=== PATIENT | female | born 1940 | race Caucasian/White ===

== ENCOUNTER 2016-05-06 21:27 | Emergency (ER) | payer OTHER ==
[2016-05-06 21:41] VITALS: BP 132/72; TEMP 101; BMI 35.5
[2016-05-06] MEDS ORDERED: LIDOCAINE 1 % AMP 5 ML (SUTURES) IM STA (21:41)
[2016-05-06] MEDS ORDERED: DECADRON 4 MG/ML SDV IM STA (21:41)
[2016-05-06] MEDS ORDERED: ROCEPHIN IM STA (21:41)
[2016-05-06] MEDS ORDERED: DUONEB NEB STA (21:42)
[2016-05-06 22:10] LABS: BASOPHILS % (AUTO) 0.3 % (0.0-3.0); EOSINOPHILS % (AUTO) 0.1 % (0.0-7.0); HEMATOCRIT 41.1 % (37.0-47.0); IMMATURE GRANULOCYTE % (AUTO) 0.6 % (0.0-5.0); LYMPHOCYTES # (AUTO) 1.3 K/uL (0.60-3.4); LYMPHOCYTES % (AUTO) 9.6 (10.0-50.0); MEAN CORPUSCULAR HEMOGLOBIN 28.1 pg (27.0-31.0); MEAN CORPUSCULAR HGB CONC 31.6 (31.8-35.4); MONOCYTES % (AUTO) 7.1 (0-10); NEUTROPHILS # (AUTO) 11.4 K/ul (2.0-6.9); NEUTROPHILS % (AUTO) 82.3; PLATELET COUNT 239 10^3/uL (140-440); RED BLOOD COUNT 4.62 10^6/ul (4.20-5.40); WHITE BLOOD COUNT 13.91 K/ul (4.6-10.2)
--- NOTE | 2016-05-06 22:12 | CT ---
EXAM: CT of the paranasal sinuses without contrast. HISTORY: Cough. Sinus pressure. Fever. PROCEDURE: Contiguous axial CT images of the paranasal sinuses without contrast with coronal and sa gittal reformats. FINDINGS: The frontal sinuses are well-aerated and normal in appearance. There is minimal mucosal thickening in the ethmoid air cells. There is minimal mucosal thickening in the right maxillary sin us. There is mucosal thickening obstructing the infundibulum of the right ostiomeatal complex. The re is moderate mucosal thickening in the left maxillary sinus. There is mucosal thickening obstruct ing the left ostiomeatal complex. There is minimal mucosal thickening in the sphenoid sinus. The n billy turbinates are normal in appearance. There is mild bowing of the nasal septum to the right. Impression: Paranasal sinusitis as described.
[2016-05-06 22:16] LABS: ABG BASE EXCESS 1 (-2.0-2.0); ABG PCO2 32.7 mmHg (35-45); ABG PH 7.478 (7.35-7.45)
[2016-05-06 22:17] LABS: ABG HCO3 24.2 (22.0-26.0); ABG TCO2 25 (22.0-28.0)
[2016-05-06 22:22] LABS: FLU INTERNAL QC INTERNAL QC VALID; RAPID FLU A NEGATIVE (NEGATIVE); RAPID FLU B NEGATIVE (NEGATIVE)
--- NOTE | 2016-05-06 22:22 | CT ---
EXAM: CT scan thorax without contrast HISTORY: Cough fever COMPARISON: None. FINDINGS: Contiguous axial images obtained through the thorax without contrast utilizing 5-mm colli mation. Sagittal and coronal reconstructions were imaged and reviewed.. The thoracic inlet is unre markable. The heart silhouette is mildly enlarged with coronary artery calcification. There is no pericardial effusion. The ascending aorta is ectatic measuring 3.7 cm. The descending thoracic aor ta the same level measures 2.8 cm. Calcified lymph nodes are seen within the prevascular right serge r region.. There is a 8 mm ground-glass opacity posteriorly within the right upper lobe.. There is an adjacent1. 6 cm opacity medially within the right upper lobe. There is an 11 mm ill-defined opac ity posteromedially at the right lung base.. Minimal fibrotic scarring noted at the left lung base. There is a hiatal hernia.4 there are degenerative changes noted throughout the thoracic spine. IMPRESSION: Ectatic ascending aorta. Mild cardiomegaly with coronary artery calcification. Hiatal hernia. Subcentimeter ground-glass nodule posteriorly right upper lobe.. There is an adjacent 1.6 noted opa city posteriorly within the right upper lobe.. Pneumopleural opacity right lung base which merits follow-up. Fibrotic scarring left lung base.
[2016-05-06 22:29] LABS: ALBUMIN 3.5 g/dL (3.4-5.0); ALBUMIN/GLOBULIN RATIO 0.88; ANION GAP 15.3; BILIRUBIN,TOTAL 0.41 mg/dL (0.00-1.20); BUN/CREATININE RATIO 18.1; CALCIUM 9.1 mg/dL (8.2-10.2); CREATININE 1.16 mg/dL (0.60-1.30); POTASSIUM 3.3 mmol/L (3.5-5.10); TOTAL PROTEIN 7.5 g/dL (5.8-8.1)
--- NOTE | 2016-05-06 23:38 | ED.PDOC ---
General ED Provider: Dr. CARLENE BEDOLLA-ER Chief Complaint: Non-specific Complaint Stated Complaint: my sinuses hurt and they are clogged up Time Seen by Physician: 21:35 Mode of Arrival: Wheelchair Information Source: Patient, Family Exam Limitations: No limitations Primary Care Provider: FRENCH CASTELLANO Nursing and Triage Documentation Reviewed and Agree: Yes Respiratory Complaint Exam - Respiratory Complaint/Exam Onset/Duration: 24hrs Symptoms Are: Still present Timing: Constant Initial Severity: Mild Current Severity: Mild Location: Nose Character: Reports: Non-productive cough Aggravating: Reports: URI Alleviating: Reports: None Associated Signs and Symptoms: Reports: Fever, URI, Nasal congestion, Sinus discomfort, Sore throat. Denies: Rapid breathing, Dyspnea, Chills, Chest pain, Pleuritic chest pain, Wheezing, Hemoptysis, Dizziness, Calf pain, Calf swelling , Edema, Hoarseness, Vomiting, Weight loss, Decreased oral intake, Increased thirst, Increased appetite, Increased urination History of Healthcare-Acquired Pneumonia: No Cardiac Risk Factors: Reports: Diabetes, Hypertension Pseudomonas Risk Factors: Reports: None Status Asthmaticus Risk Factors: Reports: None Home Oxygen Use: No Recent Stress Test: No Recent Echo/LV Function: No Current Antibiotic Use: No Current Asthma Medication Use: No Respiratory Distress: None Inadequate Respiratory Effort: No Dysphagia Present: No Stridor Present: No JVD Present: No Accessory Muscle Use: No Retractions: Not Present Diminished Breath Sounds: No Sinus Tenderness: None Grunting Respirations: No Kussmaul Respirations: No Differential Diagnoses: Pneumonia, Bronchitis, Sinusitis, URI Review of Systems - Review Of Systems Constitutional: Reports: Fever Eyes: Reports: No symptoms Ears, Nose, Mouth, Throat: Reports: Nose discharge Respiratory: Reports: Cough Cardiac: Reports: No symptoms GI: Reports: No symptoms : Reports: No symptoms Musculoskeletal: Reports: No symptoms Skin: Reports: No symptoms Neurological: Reports: No symptoms Endocrine: Reports: No symptoms Hematologic/Lymphatic: Reports: No symptoms All Other Systems: Reviewed and Negative Past Medical History - Past Medical History Endocrine: Reports: DM 2, Dyslipidemia Cardiovascular: Reports: CAD, CA, Hypertension, A-Fib Respiratory: Reports: Asthma Hematological: Reports: None Gastrointestinal: Reports: GERD Genitourinary: Reports: None Neuro/Psych: Reports: CVA Musculoskeletal: Reports: None Cancer: Reports: None Last Menstrual Period: 44 years ago - Surgical History General Surgical History: Reports: Hysterectomy, Back Surgery (SPINAL FUSION) - Family History Family History: Reports: Unknown - Social History Smoking Status: Former smoker Hx Substance Use: No Alcohol Screening: None Lives: With family - Immunizations Tetanus Shot up to Date: No (unsure) Physical Exam - Physical Exam Appearance: Well-appearing, No pain distress, Well-nourished Eyes: ANTONINO, EOMI, Conjunctiva clear ENT: Rhinorrhea Neck: Supple Respiratory: Airway patent, Breath sounds clear, Breath sounds equal, Respirations nonlabored Cardiovascular: RRR, Pulses normal, No rub, No murmur GI/: Soft, Nontender, No masses, Bowel sounds normal, No Organomegaly Musculoskeletal: Normal strength, ROM intact, No edema, No calf tenderness Skin: Warm, Dry, Normal color Neurological: Sensation intact Psychiatric: Affect appropriate, Mood appropriate Interpretation - Radiology Interpretation Radiology Interpretation By: Radiologist Radiology Results: Positive Exam Interpreted: CT Scan Re-Evaluation - Re-Evaluation Time of Re-Evaluation: 23:39 Status: Improved Vital Signs Stable: Yes Pain Level: 0 Appearance: NAD Lungs: Clear Skin: Warm and Dry Neuro: Alert and Oriented X3 CV: RRR Critical Care Note - Critical Care Note Total Time (mins): 0 Course - Course Hematology/Chemistry: 05/06/16 22:00 05/06/16 22:00 Orders, Labs, Meds: Lab Review 05/06/16 05/06/16 21:41 22:00 WBC 13.91 H RBC 4.62 Hgb 13.0 Hct 41.1 MCV 89.0 MCH 28.1 MCHC 31.6 L RDW Coeff of Monique 13.4 Plt Count 239 Immature Gran % (Auto) 0.6 Neut % (Auto) 82.3 Lymph % (Auto) 9.6 L [place] % (Auto) 7.1 Eos % (Auto) 0.1 Baso % (Auto) 0.3 Immature Gran # (Auto) 0.1 Neut # 11.4 H Lymph # 1.3 [place] # 1.0 Eos # 0.0 Baso # 0.0 D-Dimer 0.60 Puncture Site Rr O2 Saturation 94.0 L ABG pH 7.478 H ABG pCO2 32.7 L ABG pO2 64.0 L ABG HCO3 24.2 ABG Total CO2 25 ABG Base Excess 1 Adam Test + FiO2 % 21.0 Sodium 134 L Potassium 3.3 L Chloride 96 L Carbon Dioxide 26 Anion Gap 15.3 BUN 21 H Creatinine 1.16 Estimated GFR (MDRD) 46.00 BUN/Creatinine Ratio 18.10 Glucose 268 H Calcium 9.1 Total Bilirubin 0.41 AST 14 L ALT 22 Alkaline Phosphatase 61 B-Natriuretic Peptide 163 H Total Protein 7.5 Albumin 3.5 Globulin 4.0 Albumin/Globulin Ratio 0.88 Influenza A (Rapid) Negative Influenza B (Rapid) Negative Orders Category Date Time Status ABG DRAW REQUEST Stat CARDIO 05/06/16 21:41 Completed NEBULIZER TREATMENT Stat CARDIO 05/06/16 21:43 Completed ABG Stat LAB 05/06/16 21:41 Completed BLOOD CULTURE Stat LAB 05/06/16 22:00 Received BNP [B-TYPE NATRIURETIC PEPTIDE] Stat LAB 05/06/16 22:00 Completed CBC W/ AUTO DIFF Stat LAB 05/06/16 22:00 Completed COMPREHENSIVE METABOLIC PANEL Stat LAB 05/06/16 22:00 Completed D-DIMER Stat LAB 05/06/16 22:00 Completed MOLECULAR GROUP A STREP Stat LAB 05/06/16 22:00 Results RAPID FLU A/B Stat LAB 05/06/16 22:00 Completed STREP SCREEN Stat LAB 05/06/16 22:00 Results Ceftriaxone Sodium [Rocephin] MEDS 05/06/16 21:41 Discontinued 1 gm IM ONCE STA Dexamethasone 4 mg/ml Inj [Decadron 4 mg/ml Sdv] MEDS 05/06/16 21:41 Discontinued 4 mg IM ONCE STA Ipratropium/Albuterol Neb [Duoneb] MEDS 05/06/16 21:42 Discontinued 1 vial NEB ONCE STA Lidocaine HCl/Pf [Lidocaine 1 % Amp 5 ml (Sutures)] MEDS 05/06/16 21:41 Discontinued 2.1 ml IM ONCE STA CT CHEST W/O CONTRAST Stat RADS 05/06/16 21:[address] SINUSES W/O CONTRAST Stat RADS 05/06/16 21:42 Completed Medications Discontinued Medications Generic Name Dose Route Start Last Admin Trade Name Freq PRN Reason Stop Dose Admin Albuterol/Ipratropium 1 vial 05/06/16 21:42 05/06/16 22:10 Duoneb NEB 05/06/16 21:43 1 vial ONCE STA Administration Ceftriaxone Sodium 1 gm 05/06/16 21:41 05/06/16 22:01 Rocephin IM 05/06/16 21:42 1 gm ONCE STA Administration Dexamethasone Sodium Phosphate 4 mg 05/06/16 21:41 05/06/16 22:02 Decadron 4 Mg/Ml Sdv IM 05/06/16 21:42 4 mg ONCE STA Administration Lidocaine HCl 2.1 ml 05/06/16 21:41 05/06/16 22:02 Lidocaine 1 % Amp 5 Ml (Sutures) IM 05/06/16 21:42 2.1 ml ONCE STA Administration Vital Signs: Temp Pulse Resp BP Pulse Ox 05/06/16 21:31 101 F H 82 20 132/72 91 L Departure - Departure Time of Disposition: 23:39 Disposition: HOME SELF-CARE Discharge Problem: Lung nodule Sinusitis Qualifiers: Sinusitis location: unspecified location Chronicity: acute Recurrence: non- recurrent Qualifier Code: (J01.90) Acute sinusitis, unspecified Instructions: Sinusitis (ED) Condition: Good Pt referred to PMD for follow-up: Yes Additional Instructions: augmentin 875mg bid x 10 days--flonase nasal spray one puff each nostril bid--f/ u with pcp---f/u with dr castellano regarding lung nodule Allergies/Adverse Reactions: Allergies No Known Allergies Allergy (Verified 05/06/16 21:36) Home Medications: Ambulatory Orders Albuterol Sulfate [Ventolin Hfa] 90 mcg INH Q6H PRN 03/04/13 Amlodipine Besylate [Norvasc] 10 mg PO DAILY 03/04/13 Aspirin [Aspirin EC] 81 mg PO DAILY 03/04/13 Ca Cmb No.1/Vit D3/B-6/FA/B12 [Vitamin D3 1,000 Unit Tablet] 1 each PO DAILY Dabigatran Etexilate Mesylate [Pradaxa] 150 mg PO BID 03/04/13 Fenofibrate 54 mg PO DAILY 03/04/13 Furosemide [Lasix Tab] 40 mg PO QDAC 03/04/13 Glimepiride [Amaryl] 4 mg PO DAILYWM 03/04/13 Lovastatin 40 mg PO QPM 03/04/13 Metformin HCl 1,000 mg PO BIDWM 03/04/13 Nitroglycerin [Nitrostat] 0.4 mg SL Q5MIN X 3 DOSES PRN 03/04/13 Ranitidine HCl 300 mg PO QDAC 03/04/13 Cholecalciferol (Vitamin D3) [D3-2000] 2,000 units PO DAILY 06/29/15 Digoxin [Digox] 125 mcg PO DAILY 06/29/15 Gabapentin [Neurontin] 300 mg PO Q8HR 06/29/15 Multivitamin W-Minerals/Lutein [Vision Plus Lutein Vitamin Tab] 1 each PO DAILY 06/29/15 Hydrocodone Bit/Acetaminophen [[place] 5-325] 1 each PO TID PRN #20 tablet Canagliflozin [Invokana] 100 mg PO DAILY 05/06/16 Diazepam [Valium] 5 mg PO BID PRN 05/06/16 Donepezil HCl [Aricept] 10 mg PO DAILY 05/06/16 Insulin Glargine,Hum.rec.anlog [Eleanor Ogden] 40 unit SQ QPM 05/06/16 Metoprolol Tartrate [Lopressor] 25 mg PO BID 05/06/16 Disposition Discussed With: Patient
== END 2016-05-06 23:45 | disposition home or self-care (01) ==
LOC: ED 21:27
DX: J01.90 Acute sinusitis, unspecified (principal); R91.1 Solitary pulmonary nodule; E11.9 Type 2 diabetes mellitus without complications; I10 Essential (primary) hypertension; R05 Cough; I25.10 Atherosclerotic heart disease of native coronary artery without angina pectoris; E78.5 Hyperlipidemia, unspecified; I25.2 Old myocardial infarction; Z79.899 Other long term (current) drug therapy; Z86.73 Personal history of transient ischemic attack (TIA), and cerebral infarction without residual deficits
CPT/HCPCS: 36415; 80053; 82803; 83880; 85025; 85379; 87040; 87651; 87804; 87880; 94640; 96372; 99283

== ENCOUNTER 2016-12-02 06:48 | Outpatient (CLI) ==
--- NOTE | 2016-12-03 12:44 | ECHO2D ---
Date of Exam: 12/02/16 Ordering Physician: FRENCH JACOBSON Reason for Echo: SURGICAL CLEARANCE, COPD, HTN, DM M-Mode Normal Adult Results LV Dimensions Normal Adult Results AoV Opening excursions >1.6 >1.6 LVEDD-base- 3.5-5.8 5.9 Ao root dimensions 2.0-3.7 3.3 LVESD-base- 3.1-4.6 L. Atrium dimensions 1.9-3.8 5.0 Post. Wall thickness 0.8-1.1 1.2 IV septum (thickness) 0.7-1.2 1.2 Post. Wall excursion 0.72-1.3 NORMAL Septal motion 0.3 Systolic motion R. Ventricular cavity 1.5-2.0 3.0 LVEF 60% 46% Paradoxical septal wall motion NORMAL 2-D : ENLARGED LEFT ATRIAL AND RIGHT VENTRICLE CAVITIES--HYPOKINETIC SEPTAL WALL , NORMAL VALVES, NO EFFUSION, NO THROMBUS M-MODE: MV: NORMAL AV: NORMAL TV: NORMAL PV: CHAMBER SIZE: ENLARGED LEFT ATRIAL AND RIGHT VENTRICLE CAVITIES WALL MOTION: HYPOKINETIC SEPTUM PERICARDIUM: NORMAL INTERPRETATION: 1. BORDERLINE LEFT VENTRICULAR HYPERTROPHY WITH ENLARGED LEFT ATRIAL CAVITY 2. ENLARGED RIGHT VENTRICULAR CAVITY 3. HYPOKINETIC SEPTUM WITH LVEF 46% 4. NORMAL VALVES MTDD
== END 2016-12-02 06:49 | disposition home or self-care (01) ==
LOC: CAR 06:48
PROVIDERS: ATTEND Internal Medicine
DX: Z01.810 Encounter for preprocedural cardiovascular examination (principal); I10 Essential (primary) hypertension; J44.9 Chronic obstructive pulmonary disease, unspecified; E11.9 Type 2 diabetes mellitus without complications
CPT/HCPCS: 93005; 93010

== ENCOUNTER 2016-12-03 06:50 | Outpatient (CLI) ==
[2016-12-03] MEDS ORDERED: DOBUTAMINE 250 ML IV ONE (07:08)
[2016-12-03] MEDS ORDERED: ATROPINE SULFATE PFS ONE (07:08)
--- NOTE | 2016-12-03 13:40 | DOBSTECHO ---
Ordering Physician: FRENCH JACOBSON Date of Test: 12/03/16 Reason for Examination: SURG CLEARANCE, COPD, HTN, DM Current Medications: LOVASTATIN, FUROSEMIDE, METFORMIN, GABAPENTIN, FENOFIBRATE , RANITIDINE, DIGOXIN, AMLODIPINE, BENAZEPRIL, PRADAXA, DONEPEZIL Height: 66" Weight: 225 LBS Target Heart Rate: 124/146 ST Segment Stage Time HR BPM BP mmhg Rhythm +/- Up Down Comments/Symptoms Control Sitting 62 124/86 A FIB NONE Dobutamine 250mg/D5W 5cmg/KG/mn 10cmg/KG/mn 3" 85 138/70 A FIB NONE 15cmg/KG/mn 2" 100 A FIB NONE 20cmg/KG/mn :36 146 160/70 A FIB NONE 25cmg/KG/mn 30cmg/KG/mn 35cmg/KG/mn 40cmg/KG/mn Time: 5" HR B/P Time: 10" HR B/P Time: HR B/P Recovery 81 128/68 Recovery 70 Recovery Total Time: 5:36 Maximum Heart Rate Reached: 146 Interpretation: 1. NO EVIDENCE OF ISCHEMIA BY ST-T WAVE 2. NO CHEST PAIN OR DISCOMFORT 3. HYPOKINETIC SEPTUM --RESTING AND POST EXERCISE PATIENT RHYTHM ATRIAL FIBRILLATION MTDD
--- NOTE | 2016-12-03 13:44 | ECHOSTRESS ---
Date of Exam: 12/03/16 Ordering Physician: FRENCH JACOBSON Reason for Echo: SURGICAL CLEARANCE, COPD, HTN, DM, STRESS TEST--NO ISCHEMIA M-Mode Normal Adult Results LV Dimensions Normal Adult Results AoV Opening excursions >1.6 LVEDD-base- 3.5-5.8 Ao root dimensions 2.0-3.7 LVESD-base- 3.1-4.6 L. Atrium dimensions 1.9-3.8 Post. Wall thickness 0.8-1.1 IV septum (thickness) 0.7-1.2 Post. Wall excursion 0.72-1.3 Septal motion Systolic motion R. Ventricular cavity 1.5-2.0 LVEF 60% Paradoxical septal wall motion 2-D: HYPOKINETIC SEPTUM--RESTING AND WITH DOBUTAMINE INFUSION M-MODE: MV: AV: TV: PV: CHAMBER SIZE: WALL MOTION: HYPOKINETIC SEPTUM--RESTING AND WITH DOBUTAMINE INFUSION PERICARDIUM: INTERPRETATION: 1. HYPOKINETIC SEPTUM--RESTING AND WITH DOBUTAMINE INFUSION MTDD
== END 2016-12-03 06:51 | disposition home or self-care (01) ==
LOC: CAR 06:50
PROVIDERS: ATTEND Internal Medicine
DX: Z01.810 Encounter for preprocedural cardiovascular examination (principal); R06.02 Shortness of breath; I10 Essential (primary) hypertension; J44.9 Chronic obstructive pulmonary disease, unspecified; E11.9 Type 2 diabetes mellitus without complications

== ENCOUNTER 2016-12-21 12:37 | Inpatient (IN) ==
[2016-12-21] MEDS ORDERED: PROAIR HFA IH PRN (13:56)
[2016-12-21] MEDS ORDERED: LIBRIUM PO PRN (13:56)
[2016-12-21 14:34] VITALS: BMI 39.8
[2016-12-21 16:02] LABS: BASOPHILS % (AUTO) 0.3 % (0.0-3.0); EOSINOPHILS # (AUTO) 0.6 K/ul (0.0-0.7); EOSINOPHILS % (AUTO) 5.4 % (0.0-7.0); HEMATOCRIT 26.1 % (37.0-47.0); HEMOGLOBIN 8.6 g/dl (12.0-16.0); IMMATURE GRANULOCYTE % (AUTO) 0.9 % (0.0-5.0); LYMPHOCYTES # (AUTO) 1.7 K/uL (0.60-3.4); LYMPHOCYTES % (AUTO) 14.5 (10.0-50.0); MEAN CORPUSCULAR HEMOGLOBIN 29.1 pg (27.0-31.0); MEAN CORPUSCULAR VOLUME 88.2 fl (81.0-99.0); MONOCYTES # (AUTO) 1.1 K/uL (0.4-2.0); MONOCYTES % (AUTO) 9.8 (0-10); NEUTROPHILS # (AUTO) 8.1 K/ul (2.0-6.9); NEUTROPHILS % (AUTO) 69.1; PLATELET COUNT 213 10^3/uL (140-440); RED BLOOD COUNT 2.96 10^6/ul (4.20-5.40); WHITE BLOOD COUNT 11.69 K/ul (4.6-10.2)
[2016-12-21 16:10] LABS: ALBUMIN 2.7 g/dL (3.4-5.0); ALBUMIN/GLOBULIN RATIO 0.87; ANION GAP 14.1; BILIRUBIN,TOTAL 0.29 mg/dL (0.00-1.20); BUN/CREATININE RATIO 16.98; CALCIUM 8.8 mg/dL (8.2-10.2); CREATININE 1.06 mg/dL (0.60-1.30); POTASSIUM 4.1 mmol/L (3.5-5.10); TOTAL PROTEIN 5.8 g/dL (5.8-8.1)
[2016-12-21] MEDS: GLUCOPHAGE PO SCH ×3 (16:48→17:07)
[2016-12-21] MEDS ORDERED: NON-FORMULARY MEDICATION (Lovastatin [Lovastatin] 40 MG) PO SCH ×22 (17:00)
[2016-12-21] MEDS: PRADAXA PO SCH (20:06)
[2016-12-21] MEDS: ZANTAC PO SCH (20:06)
[2016-12-21] MEDS: MEVACOR PO SCH (20:07)
[2016-12-21] MEDS: NAMENDA PO SCH (20:07)
[2016-12-21] MEDS: ARICEPT PO SCH (20:08)
[2016-12-21] MEDS ORDERED: NON-FORMULARY MEDICATION (Cyclosporine 1 EACH) OP SCH (21:00)
[2016-12-22] MEDS: OXYCODONE PO PRN ×3 (04:00→21:31)
[2016-12-22 05:19] LABS: BASOPHILS % (AUTO) 0.3 % (0.0-3.0); EOSINOPHILS # (AUTO) 0.6 K/ul (0.0-0.7); EOSINOPHILS % (AUTO) 4.9 % (0.0-7.0); HEMATOCRIT 25.8 % (37.0-47.0); HEMOGLOBIN 8.3 g/dl (12.0-16.0); LYMPHOCYTES # (AUTO) 1.6 K/uL (0.60-3.4); LYMPHOCYTES % (AUTO) 13.9 (10.0-50.0); MEAN CORPUSCULAR HEMOGLOBIN 28.2 pg (27.0-31.0); MEAN CORPUSCULAR HGB CONC 32.2 (31.8-35.4); MEAN CORPUSCULAR VOLUME 87.8 fl (81.0-99.0); MONOCYTES # (AUTO) 1.1 K/uL (0.4-2.0); MONOCYTES % (AUTO) 9.3 (0-10); NEUTROPHILS # (AUTO) 8.2 K/ul (2.0-6.9); NEUTROPHILS % (AUTO) 70.6; PLATELET COUNT 224 10^3/uL (140-440); RED BLOOD COUNT 2.94 10^6/ul (4.20-5.40); WHITE BLOOD COUNT 11.66 K/ul (4.6-10.2)
[2016-12-22] MEDS: GLUCOPHAGE PO SCH ×2 (05:33→16:34)
[2016-12-22] MEDS: LASIX TAB PO SCH (05:34)
[2016-12-22] MEDS: NEURONTIN PO SCH (05:34)
[2016-12-22 05:43] LABS: ALBUMIN 2.5 g/dL (3.4-5.0); ALBUMIN/GLOBULIN RATIO 0.83; ANION GAP 12.9; BILIRUBIN,TOTAL 0.41 mg/dL (0.00-1.20); BUN/CREATININE RATIO 18.55; CALCIUM 8.7 mg/dL (8.2-10.2); CREATININE 0.97 mg/dL (0.60-1.30); POTASSIUM 3.9 mmol/L (3.5-5.10); TOTAL PROTEIN 5.5 g/dL (5.8-8.1)
[2016-12-22] MEDS ORDERED: NON-FORMULARY MEDICATION (Ranitidine Hcl [Ranitidine Hcl] 300 MG) PO SCH (06:30)
[2016-12-22] MEDS ORDERED: METFORMIN HCL 2000 MG PO SCH (06:30)
[2016-12-22] MEDS ORDERED: NON-FORMULARY MEDICATION (Metformin Hcl [Glucophage] 1,000 MG) PO SCH ×22 (08:00)
[2016-12-22] MEDS ORDERED: NON-FORMULARY MEDICATION (Glimepiride [Amaryl] 4 MG) PO SCH ×22 (08:00)
[2016-12-22] MEDS ORDERED: DECADRON 4 MG/ML SDV IM STA (08:55)
[2016-12-22] MEDS ORDERED: NON-FORMULARY MEDICATION (Amlodipine Besylate [Norvasc] 10 MG) PO SCH ×22 (09:00)
[2016-12-22] MEDS ORDERED: CHOLECALCIFEROL 2000 UNIT PO SCH (09:00)
[2016-12-22] MEDS ORDERED: INSULIN GLARGINE HUM REC ANLOG 50 UNIT SQ SCH (09:00)
[2016-12-22] MEDS ORDERED: MIRALAX PO PRN (09:00)
[2016-12-22] MEDS: LOTENSIN PO SCH (09:27)
[2016-12-22] MEDS: VITAMIN D PO SCH (09:28)
[2016-12-22] MEDS: TRIGLIDE PO SCH (09:28)
[2016-12-22] MEDS: AMARYL PO SCH (09:28)
[2016-12-22] MEDS: PRADAXA PO SCH ×2 (09:29→20:01)
[2016-12-22] MEDS: NAMENDA PO SCH ×2 (09:29→20:02)
[2016-12-22] MEDS: LEXAPRO PO SCH (09:29)
[2016-12-22] MEDS: NORVASC PO SCH (09:29)
[2016-12-22] MEDS: LANOXIN PO SCH (09:29)
[2016-12-22] MEDS: VITS A C E PO SCH (09:30)
[2016-12-22] MEDS: [UNRECOGNIZED DRUG - OTHER] PO SCH (09:30)
[2016-12-22] MEDS: LUTEIN PO SCH (09:30)
[2016-12-22] MEDS: MINERALS PO SCH (09:30)
--- NOTE | 2016-12-22 11:43 | RS.PTINEVL ---
Subjective - Patient information Date of Evaluation: 12/22/16 Date of Arrival on Unit: 12/21/16 Admitted From:: Facility Transfer Usual Living Arrangement: With Others Living Arrangement Comments: family in and out of house frequently Home Environment: House, Stairs (few) (to get in/out of home. inside home is level) Medical History: CVA/TIA, Diabetes Medical History Comments:: A fib, Neuropathy, GERD Surgical History Comments:: Left TKA 07/04, lumbar spine surgery Dec 2014 Subjective Information/ Patient Comments:: patient states this knee surgery has not gone as well as the left. States she has more pain with this one then she remembers with the left. Asks to go from the chair straight to bed. While transferring and walking, patient states multiple times that she does not like the socks she is wearing because they don't let her scoot her foot. - Level of function Prior to this admission, the patient could do the following:: Independent Selfcare, Independent ADL's, Independent Ambulation, Perform Institutional Aide/ Cooking, Drive, Participated in Social Activities Outside home Current Level of Function: Partially Dependent Current Equipment Used at Home: Glucometer, has walker at home, elevated toilet seat Pain Assessement - Location Right Knee Description: Throbbing, Aching, Acute Pain Behavior: Guarding, Facial Grimacing Pain Aggravating Factors: Standing, Walking Pain Alleviating Factors: Ice, Position Change Interventions - Objective Patient Orientation: Person, Place, Time, Situation Current Interventions: Oxygen, Telemetry Observation: Right knee with clean incision line. Range of Motion - ROM Right Upper Extremity AROM: WFL's Left Upper Extremity AROM: WFL's Right Lower Extremity AROM: Moderate limitation (left knee -5 to 70 degrees flexion) Left Lower Extremity AROM: WFL's Muscle Strength - Muscle Strength Left Lower Extremity Strength: Normal Comments:: Right quads 3+/5 , all else of right LE at least 4/5. Sensation - Sensation Right Lower Extremity Sensation: Intact/Normal Left Lower Extremity Sensation: Intact/Normal Comments: some impairment reported around incision line of right LE Balance - Sitting Balance and Reactions Static Sitting Balance: Fair (+) Dynamic Sitting Balance: Fair (+) - Standing Balance and Reactions Static Standing Balance: Fair Dynamic Standing Balance: Fair Functional Mobility - Bed Mobility Scooting: Min Assist, Mod Assist, 1 person assist, Verbal Cues, Tactile Cues Sit to Supine: Mod Assist (with right LE ), 1 person assist, Verbal Cues, Tactile Cues Comments:: Assist for right LE. - Transfers Sit to Stand: Mod Assist, 1 person assist, 2 person assist, Verbal Cues, Tactile Cues Stand to Sit: Min Assist, 1 person assist, Verbal Cues, Tactile Cues Stand Pivot Transfers: Min Assist, Mod Assist, 1 person assist, Verbal Cues, Tactile Cues Comments:: First transfer from recliner at bedside took Mod asst of 2. Transfers to and [place] bed [place] [facility] [place] one. - Safety Awareness Safety Awareness: Fair Ambulation - Ambulation Weight Bearing Status: FWB Assistive Device Used: Rolling Walker Distance: 20 feet Assistance needed with Ambulation: Mod Assist, 1 person assist, Verbal Cues, Tactile Cues Quality of Ambulation: Patient requires verbal cues to push down on the walker when advancing the left LE. Gait Deviations: Forward posture, Short stride, Lacks step continuity Factors Affecting Ambulation: Pain, Weakness, Decreased ROM, Decreased Safety, Limited Endurance Treatment time - Time with patient Total treatment time: 35 (mins) Assessment - Assessment Problem List:: Decreased level of function, Requires training/education, Decreased safety/Risk of falls, Weakness, Pain limits previous level of function Rehab Potential: Good Further Therapy Indicated?: Yes Comments: Patient also shows decreased motivation. Needs explanation of need for activity to increase her level of function. Short Term Goals GOAL #1: Sit to supine with CGA of one. Goal to be met by: 12/25/16 GOAL #2: Sit to stand with CGA -min of one and pushing with UE from seated surface. Goal to be met by: 12/25/16 GOAL #3: Amb with RW 60 feet with CGA of one and good stride and step length. Goal to be met by: 12/25/16 Waste Examiner Goals GOAL #1: Patient independent with all bed mobility. Goal to be met by: 01/01/17 GOAL #2: Patient independent with all transfers, with good safety. Goal to be met by: 01/01/17 GOAL #3: Amb. with RW with supervision and good safety, household distances. Goal to be met by: 01/01/17 Plan Plan of Care: Therapeutic EX, Neuromuscular Re-Educ, Therapeutic Activity, Self- Care/Home Management Modalities: Cold Pack/Cryotherapy Frequency of Treatment: 1-2 X day, as tolerated Duration of Treatment: 10 days Anticipated Discharge Destination: Home
--- NOTE | 2016-12-22 14:07 | DI ---
EXAM: Single view chest. HISTORY: Shortness of breath. COMPARISON: 06/30/2015 FINDINGS: Frontal and lateral views of the chest. The lung volumes are normal. Interstitial air space opacities seen in the right apex. The heart size and pulmonary vasculature are within normal limits. There are no suspicious pulmonary nodules. The pulmonary interstitium is normal. The ao rta is tortuous and calcified. The osseous structures show mild degenerative changes consistent wit h age. IMPRESSION: Probable atelectasis in the right apex. Recommend follow-up if symptoms persist.
[2016-12-22] MEDS: XOPENEX 1.25 MG NEB SCH ×3 (14:43→23:18)
[2016-12-22] MEDS: INSULIN GLARGINE HUM REC ANLOG 50 UNIT SQ SCH (16:34)
[2016-12-22 18:59] LABS: HEMATOCRIT 24.8 % (37.0-47.0); HEMOGLOBIN 8.3 g/dl (12.0-16.0)
[2016-12-22] MEDS: ARICEPT PO SCH (20:01)
[2016-12-22] MEDS: ZANTAC PO SCH (20:02)
[2016-12-22] MEDS: MEVACOR PO SCH (20:02)
[2016-12-23 04:57] LABS: BASOPHILS % (AUTO) 0.2 % (0.0-3.0); EOSINOPHILS % (AUTO) 0.2 % (0.0-7.0); HEMATOCRIT 23.3 % (37.0-47.0); HEMOGLOBIN 7.7 g/dl (12.0-16.0); LYMPHOCYTES % (AUTO) 9.1 (10.0-50.0); MEAN CORPUSCULAR HEMOGLOBIN 28.6 pg (27.0-31.0); MEAN CORPUSCULAR VOLUME 86.6 fl (81.0-99.0); NEUTROPHILS # (AUTO) 9.2 K/ul (2.0-6.9); NEUTROPHILS % (AUTO) 80.5; PLATELET COUNT 227 10^3/uL (140-440); RED BLOOD COUNT 2.69 10^6/ul (4.20-5.40); WHITE BLOOD COUNT 11.37 K/ul (4.6-10.2)
[2016-12-23] MEDS: XOPENEX 1.25 MG NEB SCH ×4 (05:16→23:45)
[2016-12-23 05:20] LABS: ALBUMIN 2.4 g/dL (3.4-5.0); ALBUMIN/GLOBULIN RATIO 0.83; BILIRUBIN,TOTAL 0.44 mg/dL (0.00-1.20); BUN/CREATININE RATIO 23.65; CREATININE 0.93 mg/dL (0.60-1.30); TOTAL PROTEIN 5.3 g/dL (5.8-8.1)
[2016-12-23] MEDS: LASIX TAB PO SCH (05:43)
[2016-12-23] MEDS: NEURONTIN PO SCH (05:43)
[2016-12-23] MEDS: GLUCOPHAGE PO SCH ×2 (05:44→16:47)
[2016-12-23] MEDS: OXYCODONE PO PRN ×3 (07:56→21:12)
[2016-12-23] MEDS: LANOXIN PO SCH (08:21)
[2016-12-23] MEDS: LEXAPRO PO SCH (08:21)
[2016-12-23] MEDS: AMARYL PO SCH (08:21)
[2016-12-23] MEDS: LOTENSIN PO SCH (08:22)
[2016-12-23] MEDS: NORVASC PO SCH (08:23)
[2016-12-23] MEDS: PRADAXA PO SCH ×2 (08:24→21:12)
[2016-12-23] MEDS: NAMENDA PO SCH ×2 (08:24→21:11)
[2016-12-23] MEDS: VITAMIN D PO SCH (08:25)
[2016-12-23] MEDS: TRIGLIDE PO SCH (08:26)
[2016-12-23] MEDS: VITS A C E PO SCH (08:27)
[2016-12-23] MEDS: MINERALS PO SCH (08:27)
[2016-12-23] MEDS: LUTEIN PO SCH (08:27)
[2016-12-23] MEDS: [UNRECOGNIZED DRUG - OTHER] PO SCH (08:27)
[2016-12-23] MEDS: PROTONIX PO SCH ×2 (14:31→16:47)
[2016-12-23] MEDS: INSULIN GLARGINE HUM REC ANLOG 50 UNIT SQ SCH (16:48)
[2016-12-23 18:43] LABS: HEMATOCRIT 30.5 % (37.0-47.0); HEMOGLOBIN 10.2 g/dl (12.0-16.0)
[2016-12-23] MEDS: ZANTAC PO SCH (21:11)
[2016-12-23] MEDS: MEVACOR PO SCH (21:12)
[2016-12-23] MEDS: ARICEPT PO SCH (21:12)
[2016-12-24] MEDS: OXYCODONE PO PRN ×3 (01:04→21:04)
[2016-12-24] MEDS: XOPENEX 1.25 MG NEB SCH ×4 (04:56→23:37)
[2016-12-24 05:14] LABS: BASOPHILS # (AUTO) 0.1 K/uL (0-0.2); BASOPHILS % (AUTO) 0.4 % (0.0-3.0); EOSINOPHILS # (AUTO) 0.4 K/ul (0.0-0.7); HEMATOCRIT 29.8 % (37.0-47.0); HEMOGLOBIN 9.9 g/dl (12.0-16.0); IMMATURE GRANULOCYTE % (AUTO) 1.5 % (0.0-5.0); LYMPHOCYTES # (AUTO) 2.2 K/uL (0.60-3.4); LYMPHOCYTES % (AUTO) 18.4 (10.0-50.0); MEAN CORPUSCULAR HEMOGLOBIN 28.7 pg (27.0-31.0); MEAN CORPUSCULAR HGB CONC 33.2 (31.8-35.4); MEAN CORPUSCULAR VOLUME 86.4 fl (81.0-99.0); MONOCYTES # (AUTO) 1.3 K/uL (0.4-2.0); MONOCYTES % (AUTO) 10.8 (0-10); NEUTROPHILS # (AUTO) 7.7 K/ul (2.0-6.9); NEUTROPHILS % (AUTO) 65.9; PLATELET COUNT 245 10^3/uL (140-440); RED BLOOD COUNT 3.45 10^6/ul (4.20-5.40); WHITE BLOOD COUNT 11.75 K/ul (4.6-10.2)
[2016-12-24] MEDS: PROTONIX PO SCH ×2 (05:40→16:24)
[2016-12-24] MEDS: NEURONTIN PO SCH (05:40)
[2016-12-24] MEDS: LASIX TAB PO SCH (05:40)
[2016-12-24] MEDS: GLUCOPHAGE PO SCH ×2 (05:40→16:24)
[2016-12-24 05:49] LABS: ALBUMIN 2.6 g/dL (3.4-5.0); ALBUMIN/GLOBULIN RATIO 0.9; ANION GAP 16.6; BILIRUBIN,TOTAL 0.68 mg/dL (0.00-1.20); BUN/CREATININE RATIO 22.34; CREATININE 0.94 mg/dL (0.60-1.30); POTASSIUM 3.6 mmol/L (3.5-5.10); TOTAL PROTEIN 5.5 g/dL (5.8-8.1)
[2016-12-24] MEDS: PRADAXA PO SCH ×2 (08:47→20:51)
[2016-12-24] MEDS: AMARYL PO SCH (08:47)
[2016-12-24] MEDS: LANOXIN PO SCH (08:47)
[2016-12-24] MEDS: NAMENDA PO SCH ×2 (08:48→20:51)
[2016-12-24] MEDS: LOTENSIN PO SCH (08:48)
[2016-12-24] MEDS: TRIGLIDE PO SCH (08:48)
[2016-12-24] MEDS: VITAMIN D PO SCH (08:48)
[2016-12-24] MEDS: LEXAPRO PO SCH (08:49)
[2016-12-24] MEDS: NORVASC PO SCH (08:49)
[2016-12-24] MEDS: LUTEIN PO SCH (08:56)
[2016-12-24] MEDS: MINERALS PO SCH (08:56)
[2016-12-24] MEDS: [UNRECOGNIZED DRUG - OTHER] PO SCH (08:56)
[2016-12-24] MEDS: VITS A C E PO SCH (08:56)
--- NOTE | 2016-12-24 13:28 | HP ---
DATE OF SERVICE: 12/21/16 SWING BED HOSPITALIZATION REASON FOR HOSPITALIZATION: Total right knee replacement three days ago. HISTORY OF PRESENT ILLNESS: The patient is a 76 year old white female underwent right knee replacement on by Dr. Mima Eid. The patient says that she has soreness otherwise feeling better. REVIEW OF SYSTEMS: CONSTITUTIONAL: No night sweats. No fatigue, malaise, lethargy. No fever or chills. HEENT: Eyes: No visual changes. No eye pain. No eye discharge. ENT: No runny nose. No epistaxis. No sinus pain. No sore throat. No odynophagia. No ear pain. No congestion. RESPIRATORY: No cough, no congestion. No hemoptysis. No shortness of breath. CARDIOVASCULAR: No angina symptoms. No CHF symptoms. No atypical chest pain for CAD. No palpitations. No orthopnea. GASTROINTESTINAL: No abdominal pain. No nausea or vomiting. No diarrhea or constipation. No hematemesis. No hematochezia. GENITOURINARY: No urgency. No frequency. No dysuria. No hematuria. No obstructive symptoms. No discharge. No pain. No significant abnormal bleeding. MUSCULOSKELETAL: No musculoskeletal pain. No joint swelling. No arthritis. Feeling soreness on the right knee. NEUROLOGICAL: No headache. No neck pain. No syncope. No seizures. No dizziness. PSYCHIATRIC: Not anxious. No depression. No suicidal thoughts. No homicidal thoughts. SKIN: No rash. No lesions. No wounds. ENDOCRINE: No unexplained weight loss. No weight gain. HEMATOLOGIC/LYMPHATIC: No anemia. No purpura. No petechiae. No prolonged or excessive bleeding. No palpable lymph nodes. PERSONAL/FAMILY/SOCIAL HISTORY: The patient is and the son takes care of the patient, she lives by herself. She does all activity of daily living. No smoker and no alcohol abuse. PAST MEDICAL/SURGICAL PROBLEMS: History of atrial fibrillation on fci anticoagulation Diabetes Mellitus Gastroesophageal reflux disease Dyslipidemia Hypertension Alzheimer's early Neuropathy Severe chronic lung disease Obesity Cardiac catheterization status post two back surgery Hysterectomy Total knee arthroplasty three days ago left side was done 06/26/[address] Mima Eid MEDICATIONS: Albuterol Ventolin HFA one puff four times a day Amlodipine 10mg PO daily Pradaxa 150mg PO twice a day Fenofibrate 54mg daily Lasix 40mg PO daily Amaryl 4mg PO daily Lovastatin 40mg PO daily Ranitidine 300mg Po daily Digoxin 125mcg PO daily Neurontin 300mg PO daily Aricept 10mg PO daily Lotensin 40mg PO daily Librium 10mg PO daily Restasis 1 each twice a day Lexapro 10mg PO daily Insulin Lantus 50m units SUBCUT daily Namenda 10mg PO twice a day Metformin 1,000mg PO daily in the evening and 2,000mg PO QAM ALLERGIES: None PHYSICAL EXAMINATION: GENERAL: The patient is oriented to time, place and person. VITAL SIGNS: Temperature 98.4, pulse 80, respiratory rate 16, blood pressure 128/74 and pulse ox 94%. HEENT: Head normocephalic, atraumatic. Eyes: Extraocular muscles are intact. Pupils are equal, round and reactive to light and accommodation. Ears: No lesions. Nose appeared normal. Throat: No exudate or erythema. NECK: Supple. No JVP, no carotid bruit. No lymphadenopathy or thyromegaly. LUNGS: Decreased breath sounds but clear to auscultation. Percussion note normal. Chest symmetrical. HEART: S1, S2, no S3. No murmurs. No cyanosis or clubbing. No ascites. Pulses: Dorsalis pedis and posterior tibial pulses +1 to +2 both sides. ABDOMEN: Soft. Nontender. Bowel sounds active. No CVA tenderness. No mass felt. EXTREMITIES: +1 edema bilaterally. Full range of motion of all extremities, equal. Right knee seems to be mildly swollen. The right calf muscle is nontender. Mild swelling noted. No Greer's sign present. NEUROLOGIC: No focal deficit. Cranial nerves II through XII are grossly intact. No headache, no double vision or headache. SKIN: Not dry. Intact. Turgor - normal. LYMPHATIC: No palpable lymph nodes/no lymphedema. MUSCULOSKELETAL: Normal joints with no swelling. Muscle tone is normal. LABS: Hgb 8.6, hct 26, WBC 11,000 normal differential, creatinine 1, BUN 18, potassium 4.1 ASSESSMENT: 1. Right knee replacement, total done three days ago 2. Anemia 3. Atrial fibrillation on anticoagulation 4. Diabetes Mellitus 5. Severe chronic lung disease 6. Hypoxemia 7. Hypertension 8. Alzheimer's 9. Neuropathy 10.Status post hysterectomy 11.Status post left total knee arthroplasty 06/26/15 PLAN: 1. Monitor CBC and CMP 2. Monitor oximetry and telemetry 3. EKG 4. Daily CBC and CMP 5. Monitor for any blood clots in the both calf muscles The patient's overall cardiac and respiratory status stable. The patient will be monitored with her blood sugar for hypoglycemia. The patient will have telemetry and oximetry monitored for at least a couple of days. CONDITION: Stable TIME SPENT: More than 70 minutes. MTDD
--- NOTE | 2016-12-24 13:32 | PN ---
DATE OF SERVICE: 12/22/16 SUBJECTIVE: The patient is a 76 year old white female hospitalized in the swing bed after right knee total replacement. The patient says that today that she isn't feeling good, she is weak and tired and sore in the right knee area with no further swelling. Both calf muscles look the same as before. REVIEW OF SYSTEMS: CONSTITUTIONAL: No night sweats. No fatigue, malaise, lethargy. No fever or chills. HEENT: Eyes: No visual changes. No eye pain. No eye discharge. ENT: No runny nose. No epistaxis. No sinus pain. No sore throat. No odynophagia. No congestion. RESPIRATORY: No cough, no congestion. No hemoptysis. No shortness of breath. CARDIOVASCULAR: No angina symptoms. No CHF symptoms. No atypical chest pain for CAD. No palpitations. No orthopnea. No PND. GASTROINTESTINAL: No abdominal pain. No nausea or vomiting. No diarrhea or constipation. No hematemesis. No hematochezia. GENITOURINARY: No urgency. No frequency. No dysuria. No hematuria. No obstructive symptoms. No discharge. No pain. No significant abnormal bleeding. MUSCULOSKELETAL: No musculoskeletal pain; no joint swelling. NEUROLOGICAL: No headache. No neck pain. No syncope. No seizures. No dizziness. PSYCHIATRIC: Not anxious. No depression. No suicidal thoughts. No homicidal thoughts. SKIN: No rash. No lesions. No wounds. ENDOCRINE: No unexplained weight loss. No weight gain. HEMATOLOGIC/LYMPHATIC: No anemia. No purpura. No petechiae. No prolonged or excessive bleeding. No palpable lymph nodes. PHYSICAL EXAMINATION: VITAL SIGNS: Temperature 98.9, pulse 98, respiratory rate 20, blood pressure 140/64 and pulse ox 92%. HEENT: Head normocephalic, atraumatic. Eyes: Extraocular muscles are intact. Pupils are equal, round and reactive to light and accommodation. Ears: No lesions. Nose appeared normal. Throat: No exudate or erythema. NECK: Supple. No JVD, no carotid bruit. No lymphadenopathy or thyromegaly. LUNGS: Decreased breath sounds but clear to auscultation. Percussion note normal. Chest symmetrical. HEART: S1, S2, no S3. No murmurs. No cyanosis or clubbing. No ascites. Pulses: Dorsalis pedis and posterior tibial pulses +1 to +2 both sides. ABDOMEN: Soft. Nontender. Bowel sounds active. No CVA tenderness. No mass felt. EXTREMITIES: No edema. Full range of motion of all extremities, equal. NEUROLOGIC: No focal deficit. Cranial nerves II through XII are grossly intact. No headache, no double vision or headache. SKIN: Not dry. Intact. Turgor - normal. LYMPHATIC: No palpable lymph nodes/no lymphedema. MUSCULOSKELETAL: Normal joints with no swelling. Muscle tone is normal. LABS: Hgb 8.3, hct 25, WBC 11,000 normal differential, creatinine 0.9, BUN 18, potassium 3.9. ASSESSMENT: 1. Right knee replacement 2. Hypoxemia with chronic lung disease requiring oxygen 3. Anemia, going to watch Hgb and hct if hgb drops below 8 we will type and cross match and given 1 units packed red cells. No evidence of active GI bleed. The patient's blood loss is from surgery. CONDITION: Stable. TIME SPENT: More than 30 minutes. Plan and coordination of the patient's care discussed in the presence of nurse. DEVAN
--- NOTE | 2016-12-24 13:38 | PN ---
DATE OF SERVICE: 12/23/16 SUBJECTIVE: The patient is a 76 year old white female hospitalized with right knee total replacement. The patient's condition is stable. She still complains of weakness and fatigue. The patient's hgb dropped to 7.7. The patient's anemia is symptomatic with shortness of breath and weakness. She needs to have higher hgb and hct because she needs to get up and walk around. She needs some strength. She has severe chronic lung disease with hypoxemia and also history of hypertension, dyslipidemia, atrial fibrillation. REVIEW OF SYSTEMS: CONSTITUTIONAL: No night sweats. Weakness and fatigue. No fever or chills. HEENT: Eyes: No visual changes. No eye pain. No eye discharge. ENT: No runny nose. No epistaxis. No sinus pain. No sore throat. No odynophagia. No congestion. RESPIRATORY: No cough, no congestion. No hemoptysis. No shortness of breath. CARDIOVASCULAR: No angina symptoms. No CHF symptoms. No atypical chest pain for CAD. No palpitations. No orthopnea. No PND. GASTROINTESTINAL: No abdominal pain. No nausea or vomiting. No diarrhea or constipation. No hematemesis. No hematochezia. GENITOURINARY: No urgency. No frequency. No dysuria. No hematuria. No obstructive symptoms. No discharge. No pain. No significant abnormal bleeding. MUSCULOSKELETAL: No musculoskeletal pain; no joint swelling. NEUROLOGICAL: No headache. No neck pain. No syncope. No seizures. No dizziness. PSYCHIATRIC: Not anxious. No depression. No suicidal thoughts. No homicidal thoughts. SKIN: No rash. No lesions. No wounds. ENDOCRINE: No unexplained weight loss. No weight gain. HEMATOLOGIC/LYMPHATIC: No anemia. No purpura. No petechiae. No prolonged or excessive bleeding. No palpable lymph nodes. PHYSICAL EXAMINATION: GENERAL: The patient is oriented to time, place and person, looks pale. VITAL SIGNS: Temperature 96.5, pulse 80, respiratory rate 15, blood pressure 106/63 and pulse ox 98%. HEENT: Head normocephalic, atraumatic. Eyes: Extraocular muscles are intact. Pupils are equal, round and reactive to light and accommodation. Ears: No lesions. Nose appeared normal. Throat: No exudate or erythema. NECK: Supple. No JVD, no carotid bruit. No lymphadenopathy or thyromegaly. LUNGS: Decreased breath sounds but clear to auscultation. Percussion note normal. Chest symmetrical. HEART: S1, S2, no S3. No murmurs. No cyanosis or clubbing. No ascites. Pulses: Dorsalis pedis and posterior tibial pulses +1 to +2 both sides. ABDOMEN: Soft. Nontender. Bowel sounds active. No CVA tenderness. No mass felt. EXTREMITIES: No edema. Full range of motion of all extremities, equal. NEUROLOGIC: No focal deficit. Cranial nerves II through XII are grossly intact. No headache, no double vision or headache. SKIN: Not dry. Intact. Turgor - normal. LYMPHATIC: No palpable lymph nodes/no lymphedema. MUSCULOSKELETAL: Normal joints with no swelling. Muscle tone is normal. LABS: Hgb 7.7, hct 23, WBC 11,300 normal differential, creatinine 0.9, BUN 20, potassium 4, glucose 220 ASSESSMENT: 1. Symptomatic anemia 2. History of sever chronic lung disease 3. Hypertension 4. Cardiomyopathy 5. Diabetes 6. Atrial fibrillation. PLAN: 1. Transfusion couple of units of packed red cells because patient has symptomatic anemia TIME SPENT: More than 30 minutes. Plan and coordination of the patient's care discussed in the presence of nurse. DEVAN
[2016-12-24 15:59] LABS: HEMOGLOBIN 10.6 g/dl (12.0-16.0)
[2016-12-24] MEDS: INSULIN GLARGINE HUM REC ANLOG 50 UNIT SQ SCH (16:24)
--- NOTE | 2016-12-24 16:25 | RS.OTINEVL ---
Subjective - Patient information Date of Evaluation: 12/22/16 Date of Arrival on Unit: 12/21/16 Admitted From:: Facility Transfer Usual Living Arrangement: With Others Living Arrangement Comments: family in and out of house frequently Home Environment: House, Stairs (few) (to get in/out of home. inside home is level) Medical History: CVA/TIA, Diabetes Medical History Comments:: A fib, Neuropathy, GERD Surgical History: Knee Replacement, Hysterectomy Surgical History Comments:: Left TKA 07/04, lumbar spine surgery Dec 2014 Subjective Information/ Patient Comments:: "They think I am losing my mind so they have me on the pills for memory." - Level of function Prior to this admission, the patient could do the following:: Independent Selfcare, Independent ADL's, Independent Ambulation, Perform [employer]/ Cooking, Drive, Participated in Social Activities Outside home Current Level of Function: Partially Dependent Current Equipment Used at Home: Glucometer, has walker at home, elevated toilet seat Pain Assessment - Pain Pain Score: 3 Side: right Pain Location Body Site: Knee Pain Aggravating Factors: ADL's, Changing Position, Exercise/Activity, Standing , Walking Pain Alleviating Factors: Ice, Medication, Position Change Interventions - Objective Patient Orientation: Person, Place, Time, Situation Current Interventions: IV's, Oxygen Observation: Pt has edema and bruising of the Right knee. Interventions - ROM Right Upper Extremity AROM: WFL's Left Upper Extremity AROM: WFL's - Strength Right Upper Extremity Strength: Mild Weakness Left Upper Extremity Strength: Mild Weakness - Sensation Right Upper Extremity Sensation: Intact/Normal Left Upper Extremity Sensation: Intact/Normal Balance - Sitting Balance Static Sitting Balance: Good Dynamic Sitting Balance: Good - Standing Balance Static Standing Balance: Fair Dynamic Standing Balance: Fair ADL Skills - Self Feeding Self Feeding: Independent - Grooming Grooming: Set Up Only - Bathing Bathing UE: CGA Bathing LE: Max Assist - Dressing Dressing UE: Set Up Only Dressing LE: Min Assist, Mod Assist - Toilet Management Toileting Management: Mod Assist Functional Mobility - Bed Mobility Rolling R/L: Independent Scooting: CGA Supine to Sit: CGA Sit to Supine: CGA - Transfers Sit to Stand: Min Assist Stand to Sit: Min Assist Stand Pivot Transfers: Min Assist - Ambulation Weight Bearing Status: FWB Assistive Device Used: Rolling Walker Assistance needed with Ambulation: CGA - Safety Awareness Safety Awareness: Good Additional Treatment Performed - Additional units charged ADL: 15 - Time with patient Total treatment time: 30 Activities Patient Interests:: Watching Television, Visiting/Socializing Patient Education Patient Education: Education of diagnosis, Body/Joint mechanics, Home Exercise Program, Education of Plan of Care Teaching Recipient: Patient Teaching Methods: Discussion Assessment Problem List:: Decreased level of function, Requires training/education, Decreased safety/Risk of falls, Weakness, Pain limits previous level of function Rehab Potential: Good Further Therapy Indicated?: Yes Short Term Goals - Goals GOAL 1: CGA with self care Goal to be met by: 12/31/16 GOAL 2: CGA with functional mobility Goal to be met by: 12/31/16 GOAL 3: F+/G- ADL balance Goal to be met by: 12/31/16 Women'S Studies Lecturer Goals GOAL 1: VT with self care Goal to be met by: 01/07/17 GOAL 2: VT with functional mobility Goal to be met by: 01/07/17 Progress towards goal: Met GOAL 3: G ADL balance Goal to be met by: 01/07/17 Progress towards goal: Met Plan Plan of Care: Therapeutic EX, Neuromuscular Re-Educ, Therapeutic Activity, Self- Care/Home Management Modalities: Cold Pack/Cryotherapy Frequency of Treatment: 1-2 X day, as tolerated Duration of Treatment: 2 Weeks Anticipated Discharge Destination: Home
[2016-12-24] MEDS: ZANTAC PO SCH (20:50)
[2016-12-24] MEDS: ARICEPT PO SCH (20:50)
[2016-12-24] MEDS: MEVACOR PO SCH (20:51)
[2016-12-25] MEDS: OXYCODONE PO PRN ×4 (04:59→21:29)
[2016-12-25 05:13] LABS: BASOPHILS % (AUTO) 0.3 % (0.0-3.0); EOSINOPHILS # (AUTO) 0.5 K/ul (0.0-0.7); EOSINOPHILS % (AUTO) 4.6 % (0.0-7.0); HEMATOCRIT 31.1 % (37.0-47.0); HEMOGLOBIN 10.3 g/dl (12.0-16.0); LYMPHOCYTES # (AUTO) 2.1 K/uL (0.60-3.4); LYMPHOCYTES % (AUTO) 18.3 (10.0-50.0); MEAN CORPUSCULAR HEMOGLOBIN 28.8 pg (27.0-31.0); MEAN CORPUSCULAR HGB CONC 33.1 (31.8-35.4); MEAN CORPUSCULAR VOLUME 86.9 fl (81.0-99.0); MONOCYTES # (AUTO) 1.3 K/uL (0.4-2.0); MONOCYTES % (AUTO) 10.9 (0-10); NEUTROPHILS # (AUTO) 7.5 K/ul (2.0-6.9); NEUTROPHILS % (AUTO) 63.9; PLATELET COUNT 274 10^3/uL (140-440); RED BLOOD COUNT 3.58 10^6/ul (4.20-5.40); WHITE BLOOD COUNT 11.71 K/ul (4.6-10.2)
[2016-12-25] MEDS: XOPENEX 1.25 MG NEB SCH ×4 (05:15→23:24)
[2016-12-25 05:29] LABS: ALBUMIN 2.6 g/dL (3.4-5.0); ALBUMIN/GLOBULIN RATIO 0.79; BILIRUBIN,TOTAL 0.76 mg/dL (0.00-1.20); BUN/CREATININE RATIO 20.19; CALCIUM 9.2 mg/dL (8.2-10.2); CREATININE 1.04 mg/dL (0.60-1.30); TOTAL PROTEIN 5.9 g/dL (5.8-8.1)
[2016-12-25] MEDS: PROTONIX PO SCH ×2 (05:49→17:40)
[2016-12-25] MEDS: NEURONTIN PO SCH (05:49)
[2016-12-25] MEDS: LASIX TAB PO SCH (05:49)
[2016-12-25] MEDS: GLUCOPHAGE PO SCH ×2 (05:49→17:39)
[2016-12-25] MEDS: LOTENSIN PO SCH (09:20)
[2016-12-25] MEDS: NORVASC PO SCH (09:20)
[2016-12-25] MEDS: [UNRECOGNIZED DRUG - OTHER] PO SCH (09:20)
[2016-12-25] MEDS: LUTEIN PO SCH (09:20)
[2016-12-25] MEDS: MINERALS PO SCH (09:20)
[2016-12-25] MEDS: VITS A C E PO SCH (09:20)
[2016-12-25] MEDS: AMARYL PO SCH (09:21)
[2016-12-25] MEDS: LANOXIN PO SCH (09:21)
[2016-12-25] MEDS: TRIGLIDE PO SCH (09:22)
[2016-12-25] MEDS: PRADAXA PO SCH ×2 (09:22→21:28)
[2016-12-25] MEDS: VITAMIN D PO SCH (09:22)
[2016-12-25] MEDS: LEXAPRO PO SCH (09:22)
[2016-12-25] MEDS: NAMENDA PO SCH ×2 (09:23→21:29)
--- NOTE | 2016-12-25 13:24 | PCM.PROG ---
Attending Provider: ATTENDING PROVIDER: Dr. FRENCH JACOBSON DATE OF SERVICE: 12/25/16 SUBJECTIVE: This 76 year old WHITE/ F was hospitalized 12/21/16. The patient is seen with Antoinette, Nurse Practitioner. The patient is alert, up to take a shower. She states she slept well last night. She started PT yesterday and has been weight bearing. She has right knee pain and swelling. REVIEW OF SYSTEMS: CONSTITUTIONAL: No night sweats. No fatigue, malaise, lethargy. No fever or chills. HEENT: Eyes: No visual changes. No eye pain. No eye discharge. ENT: No runny nose. No epistaxis. No sinus pain. No odynophagia. No congestion. RESPIRATORY: No cough, no congestion. No hemoptysis. No shortness of breath. CARDIOVASCULAR: No angina symptoms. No CHF symptoms. No atypical chest pain for CAD. No palpitations. No orthopnea.. GASTROINTESTINAL: No abdominal pain. No nausea or vomiting. No diarrhea or constipation. No hematemesis. No hematochezia. GENITOURINARY: No urgency. No frequency. No dysuria. No hematuria. No obstructive symptoms. No discharge. No pain. No significant abnormal bleeding. MUSCULOSKELETAL: Pain and swelling of right knee. NEUROLOGICAL: Awake, alert, oriented to time, place and person. No headache. No neck pain. No syncope. No seizures. No dizziness. PSYCHIATRIC: Not anxious. No depression. No suicidal thoughts. No homicidal thoughts. SKIN: No rash. Right knee incision area healthy looking. ENDOCRINE: No unexplained weight loss. No weight gain. HEMATOLOGIC/LYMPHATIC: No anemia. No purpura. No petechiae. No prolonged or excessive bleeding. No palpable lymph nodes. PHYSICAL EXAMINATION: GENERAL: The patient is awake, alert and oriented, sitting in bed in no distress. VITAL SIGNS: Temperature 97.6 F, Pulse 85, Respiratory Rate 20, BP 131/73, Pulse Ox 96% HEENT: Head normocephalic, atraumatic. Eyes: Extraocular muscles are intact. Pupils are equal, round and reactive to light and accommodation. Ears: No lesions. Nose appeared normal. Throat: No exudate or erythema. NECK: Supple. No JVD, no carotid bruit. No lymphadenopathy or thyromegaly. LUNGS: Clear to auscultation. Percussion note normal. Chest symmetrical. HEART: Irregular heart rate. S1, S2, no S3. No murmurs. No cyanosis or clubbing. No ascites. Pulses: Dorsalis pedis and posterior tibial pulses +1 to +2 both sides. ABDOMEN: Soft. Non-tender. Bowel sounds active. No CVA tenderness. No mass felt. EXTREMITIES: Swelling and pain right knee. Incision is intact with no redness or drainage. Healing well with no edema. NEUROLOGIC: No focal deficit. Cranial nerves II through XII are grossly intact. No headache, no double vision or headache. SKIN: Not dry. Intact. Turgor-normal. Right knee incision as above. LYMPHATIC: No palpable lymph nodes/no lymphedema. MUSCULOSKELETAL: Normal joints with no swelling. Muscle tone is normal. LAB REVIEW: 12/25/16 04:20 12/25/16 04:20 12/25/16 04:20: WBC 11.71 H, RBC 3.58 L, Hgb 10.3 L, Hct 31.1 L, MCV 86.9, MCH 28.8, MCHC 33.1, RDW Coeff of Monique 14.4, Plt Count 274, Immature Gran % (Auto) 2.0, Neut % (Auto) 63.9, Lymph % (Auto) 18.3, [place] % (Auto) 10.9 H, Eos % (Auto ) 4.6, Baso % (Auto) 0.3, Immature Gran # (Auto) 0.2, Neut # 7.5 H, Lymph # 2.1 , [place] # 1.3, Eos # 0.5, Baso # 0.0, Sodium 140, Potassium 4.0, Chloride 96 L, Carbon Dioxide 30, Anion Gap 18.0, BUN 21 H, Creatinine 1.04, Estimated GFR ( MDRD) 52.00, BUN/Creatinine Ratio 20.19, Glucose 92, Calcium 9.2, Total Bilirubin 0.76, AST 14 L, ALT 14, Alkaline Phosphatase 47 L, Total Protein 5.9, Albumin 2.6 L, Globulin 3.3, Albumin/Globulin Ratio 0.79 12/24/16 15:40: Hgb 10.6 L, Hct 32.0 L ASSESSMENT: 1. Right knee osteoarthritis with total knee replacement 2. Atrial fibrillation 3. Anemia due to surgery PLAN: 1. Continue PT/OT 2. Up and about as tolerated Plan and coordination of the patient's care discussed in the presence of Delivery Recruiter and nurse. CONDITION: Stable SCRIBED BY: SERVANDO CANALES Generator Worker scribed while in presence of service performed by Dr. FRENCH JACOBSON/ANTOINETTE CARRILLO on 12/25/16 ([id number])
[2016-12-25 16:53] LABS: HEMATOCRIT 32.3 % (37.0-47.0); HEMOGLOBIN 10.6 g/dl (12.0-16.0)
[2016-12-25] MEDS: INSULIN GLARGINE HUM REC ANLOG 50 UNIT SQ SCH (17:40)
[2016-12-25] MEDS: MEVACOR PO SCH (21:28)
[2016-12-25] MEDS: ARICEPT PO SCH (21:29)
[2016-12-25] MEDS: ZANTAC PO SCH (21:29)
[2016-12-25] MEDS ORDERED: MILK OF MAGNESIA PO STA (22:25)
[2016-12-26 04:40] LABS: BASOPHILS # (AUTO) 0.1 K/uL (0-0.2); BASOPHILS % (AUTO) 0.4 % (0.0-3.0); EOSINOPHILS # (AUTO) 0.6 K/ul (0.0-0.7); EOSINOPHILS % (AUTO) 4.9 % (0.0-7.0); HEMOGLOBIN 10.5 g/dl (12.0-16.0); IMMATURE GRANULOCYTE % (AUTO) 1.5 % (0.0-5.0); LYMPHOCYTES # (AUTO) 1.9 K/uL (0.60-3.4); LYMPHOCYTES % (AUTO) 14.5 (10.0-50.0); MEAN CORPUSCULAR HEMOGLOBIN 28.8 pg (27.0-31.0); MEAN CORPUSCULAR HGB CONC 32.8 (31.8-35.4); MEAN CORPUSCULAR VOLUME 87.7 fl (81.0-99.0); MONOCYTES # (AUTO) 1.2 K/uL (0.4-2.0); NEUTROPHILS # (AUTO) 8.9 K/ul (2.0-6.9); NEUTROPHILS % (AUTO) 69.7; PLATELET COUNT 290 10^3/uL (140-440); RED BLOOD COUNT 3.65 10^6/ul (4.20-5.40)
[2016-12-26] MEDS: XOPENEX 1.25 MG NEB SCH ×4 (04:49→23:42)
[2016-12-26 05:04] LABS: ALBUMIN 2.6 g/dL (3.4-5.0); ALBUMIN/GLOBULIN RATIO 0.79; ANION GAP 18.9; BILIRUBIN,TOTAL 0.73 mg/dL (0.00-1.20); BUN/CREATININE RATIO 18.46; CALCIUM 9.2 mg/dL (8.2-10.2); CREATININE 1.3 mg/dL (0.60-1.30); POTASSIUM 3.9 mmol/L (3.5-5.10); TOTAL PROTEIN 5.9 g/dL (5.8-8.1)
[2016-12-26] MEDS: PROTONIX PO SCH ×2 (05:57→17:07)
[2016-12-26] MEDS: NEURONTIN PO SCH (05:57)
[2016-12-26] MEDS: GLUCOPHAGE PO SCH ×2 (05:58→17:07)
[2016-12-26] MEDS: LASIX TAB PO SCH (05:58)
[2016-12-26] MEDS: LANOXIN PO SCH (09:07)
[2016-12-26] MEDS: VITS A C E PO SCH (09:07)
[2016-12-26] MEDS: LUTEIN PO SCH (09:07)
[2016-12-26] MEDS: MINERALS PO SCH (09:07)
[2016-12-26] MEDS: [UNRECOGNIZED DRUG - OTHER] PO SCH (09:07)
[2016-12-26] MEDS: PRADAXA PO SCH ×2 (09:08→20:08)
[2016-12-26] MEDS: NORVASC PO SCH (09:08)
[2016-12-26] MEDS: TRIGLIDE PO SCH (09:08)
[2016-12-26] MEDS: LOTENSIN PO SCH (09:08)
[2016-12-26] MEDS: AMARYL PO SCH (09:09)
[2016-12-26] MEDS: NAMENDA PO SCH ×2 (09:09→20:08)
[2016-12-26] MEDS: VITAMIN D PO SCH (09:09)
[2016-12-26] MEDS: LEXAPRO PO SCH (09:09)
[2016-12-26] MEDS: OXYCODONE PO PRN ×3 (09:13→20:08)
[2016-12-26] MEDS: INSULIN GLARGINE HUM REC ANLOG 50 UNIT SQ SCH (17:07)
[2016-12-26] MEDS: ZANTAC PO SCH (20:07)
[2016-12-26] MEDS: ATIVAN PO PRN (20:08)
[2016-12-26] MEDS: MEVACOR PO SCH (20:08)
[2016-12-26] MEDS: ARICEPT PO SCH (20:08)
[2016-12-27] MEDS: OXYCODONE PO PRN ×4 (04:33→22:18)
[2016-12-27 04:54] LABS: BASOPHILS % (AUTO) 0.2 % (0.0-3.0); EOSINOPHILS # (AUTO) 0.6 K/ul (0.0-0.7); EOSINOPHILS % (AUTO) 4.2 % (0.0-7.0); HEMATOCRIT 32.9 % (37.0-47.0); HEMOGLOBIN 10.8 g/dl (12.0-16.0); IMMATURE GRANULOCYTE % (AUTO) 1.4 % (0.0-5.0); LYMPHOCYTES # (AUTO) 1.6 K/uL (0.60-3.4); LYMPHOCYTES % (AUTO) 11.1 (10.0-50.0); MEAN CORPUSCULAR HEMOGLOBIN 28.7 pg (27.0-31.0); MEAN CORPUSCULAR HGB CONC 32.8 (31.8-35.4); MEAN CORPUSCULAR VOLUME 87.5 fl (81.0-99.0); MONOCYTES # (AUTO) 1.1 K/uL (0.4-2.0); NEUTROPHILS # (AUTO) 10.6 K/ul (2.0-6.9); NEUTROPHILS % (AUTO) 75.1; PLATELET COUNT 313 10^3/uL (140-440); RED BLOOD COUNT 3.76 10^6/ul (4.20-5.40); WHITE BLOOD COUNT 14.18 K/ul (4.6-10.2)
[2016-12-27] MEDS: XOPENEX 1.25 MG NEB SCH ×4 (05:07→23:00)
[2016-12-27 05:18] LABS: ALBUMIN 2.7 g/dL (3.4-5.0); ALBUMIN/GLOBULIN RATIO 0.79; ANION GAP 16.3; BILIRUBIN,TOTAL 0.68 mg/dL (0.00-1.20); BUN/CREATININE RATIO 20.96; CREATININE 1.24 mg/dL (0.60-1.30); POTASSIUM 4.3 mmol/L (3.5-5.10); TOTAL PROTEIN 6.1 g/dL (5.8-8.1)
[2016-12-27] MEDS: GLUCOPHAGE PO SCH ×2 (06:08→17:14)
[2016-12-27] MEDS: PROTONIX PO SCH ×2 (06:08→17:13)
[2016-12-27] MEDS: NEURONTIN PO SCH (06:08)
[2016-12-27] MEDS: LASIX TAB PO SCH (06:09)
[2016-12-27] MEDS: LUTEIN PO SCH (08:58)
[2016-12-27] MEDS: LEXAPRO PO SCH (08:58)
[2016-12-27] MEDS: MINERALS PO SCH (08:58)
[2016-12-27] MEDS: TRIGLIDE PO SCH (08:58)
[2016-12-27] MEDS: [UNRECOGNIZED DRUG - OTHER] PO SCH (08:58)
[2016-12-27] MEDS: VITS A C E PO SCH (08:58)
[2016-12-27] MEDS: PRADAXA PO SCH ×2 (08:58→20:22)
[2016-12-27] MEDS: NORVASC PO SCH (08:59)
[2016-12-27] MEDS: NAMENDA PO SCH ×2 (08:59→20:20)
[2016-12-27] MEDS: AMARYL PO SCH (08:59)
[2016-12-27] MEDS: VITAMIN D PO SCH (08:59)
[2016-12-27] MEDS: LOTENSIN PO SCH (08:59)
[2016-12-27] MEDS: LANOXIN PO SCH (09:01)
--- NOTE | 2016-12-27 09:29 | PCM.PROG ---
Attending Provider: ATTENDING PROVIDER: Dr. FRENCH JACOBSON DATE OF SERVICE: 12/27/16 SUBJECTIVE: This 76 year old WHITE/ F was hospitalized 12/21/16. The patient is seen with Antoinette, Nurse Practitioner. The patient is lying in bed. He is alert , doing well. He has been doing PT with pain right knee. REVIEW OF SYSTEMS: CONSTITUTIONAL: No night sweats. No fatigue, malaise, lethargy. No fever or chills. HEENT: Eyes: No visual changes. No eye pain. No eye discharge. ENT: No runny nose. No epistaxis. No sinus pain. No odynophagia. No congestion. RESPIRATORY: No cough, no congestion. No hemoptysis. No shortness of breath. CARDIOVASCULAR: No angina symptoms. No CHF symptoms. No atypical chest pain for CAD. No palpitations. No orthopnea.. GASTROINTESTINAL: No abdominal pain. No nausea or vomiting. No diarrhea or constipation. No hematemesis. No hematochezia. GENITOURINARY: No urgency. No frequency. No dysuria. No hematuria. No obstructive symptoms. No discharge. No pain. No significant abnormal bleeding. MUSCULOSKELETAL: No musculoskeletal pain; no joint swelling. NEUROLOGICAL: Awake, alert, oriented to time, place and person. No headache. No neck pain. No syncope. No seizures. No dizziness. PSYCHIATRIC: Not anxious. No depression. No suicidal thoughts. No homicidal thoughts. SKIN: No rash. No lesions. Incision right knee, clean, dry and intact. ENDOCRINE: No unexplained weight loss. No weight gain. HEMATOLOGIC/LYMPHATIC: No anemia. No purpura. No petechiae. No prolonged or excessive bleeding. No palpable lymph nodes. PHYSICAL EXAMINATION: GENERAL: The patient is awake, alert and oriented, sitting in bed in no distress. VITAL SIGNS: Temperature 97.6 F, Pulse 78, Respiratory Rate 16, BP 129/70, Pulse Ox 95% HEENT: Head normocephalic, atraumatic. Eyes: Extraocular muscles are intact. Pupils are equal, round and reactive to light and accommodation. Ears: No lesions. Nose appeared normal. Throat: No exudate or erythema. NECK: Supple. No JVD, no carotid bruit. No lymphadenopathy or thyromegaly. LUNGS: Decreased bilaterally but clear to auscultation. Percussion note normal. Chest symmetrical. HEART: Irregular heart rate. S1, S2, no S3. No murmurs. No cyanosis or clubbing. No ascites. Pulses: Dorsalis pedis and posterior tibial pulses +1 to +2 both sides. ABDOMEN: Soft. Non-tender. Bowel sounds active. No CVA tenderness. No mass felt. EXTREMITIES: Swelling of right knee consistent with surgery. Incision is clean , dry and intact with no sign of infection. No edema. Full range of motion of all extremities, equal. NEUROLOGIC: No focal deficit. Cranial nerves II through XII are grossly intact. No headache, no double vision or headache. SKIN: Not dry. Intact. Turgor-normal. LYMPHATIC: No palpable lymph nodes/no lymphedema. MUSCULOSKELETAL: Normal joints with no swelling. Muscle tone is normal. LAB REVIEW: 12/27/16 04:30 12/27/16 04:30 12/27/16 04:30: WBC 14.18 H, RBC 3.76 L, Hgb 10.8 L, Hct 32.9 L, MCV 87.5, MCH 28.7, MCHC 32.8, RDW Coeff of Monique 14.5, Plt Count 313, Immature Gran % (Auto) 1.4, Neut % (Auto) 75.1, Lymph % (Auto) 11.1, [place] % (Auto) 8.0, Eos % (Auto) 4.2, Baso % (Auto) 0.2, Immature Gran # (Auto) 0.2, Neut # 10.6 H, Lymph # 1.6, [place] # 1.1, Eos # 0.6, Baso # 0.0, Sodium 137, Potassium 4.3, Chloride 95 L, Carbon Dioxide 30, Anion Gap 16.3, BUN 26 H, Creatinine 1.24, Estimated GFR ( MDRD) 42.00, BUN/Creatinine Ratio 20.96, Glucose 131 H, Calcium 9.0, Total Bilirubin 0.68, AST 11 L, ALT 14, Alkaline Phosphatase 47 L, Total Protein 6.1, Albumin 2.7 L, Globulin 3.4, Albumin/Globulin Ratio 0.79 ASSESSMENT: 1. Right knee osteoarthritis with total knee replacement 2. Atrial fibrillation 3. Anemia due to surgery 4. Diabetes mellitus type 2 PLAN: 1. Continue PT/OT 2. Up and about as tolerated Plan and coordination of the patient's care discussed in the presence of Site Acquisition Manager and nurse. CONDITION: Stable SCRIBED BY: SERVANDO CANALES Research Assistant Professor scribed while in presence of service performed by Dr. FRENCH JACOBSON/ANTOINETTE CARRILLO APRN on 12/27/16 ([id number])
--- NOTE | 2016-12-27 10:52 | PN ---
DATE OF SERVICE: 12/25/16 SUBJECTIVE: The patient was seen and examined with the nurse practitioner. The patient's condition is stable with hemoglobin of 10.3, hematocrit of 31 that is going up. Cardiovascular status is stable. PHYSICAL EXAMINATION: HEENT: Head normocephalic, atraumatic. Eyes: Extraocular muscles are intact. Pupils are equal, round and reactive to light and accommodation. Ears: No lesions. Nose appeared normal. Throat: No exudate or erythema. NECK: Supple. No JVD, no carotid bruit. No lymphadenopathy or thyromegaly. LUNGS: Clear to auscultation. Percussion note normal. Chest symmetrical. HEART: S1, S2, no S3. No murmurs. No cyanosis or clubbing. No ascites. Pulses: Dorsalis pedis and posterior tibial pulses +1 to +2 both sides. ABDOMEN: Soft. Nontender. Bowel sounds active. No CVA tenderness. No mass felt. EXTREMITIES: Mild swelling of the right knee but no evidence of infection. She is feeling better, still has tight feeling in the knee, not that much forthcoming with her physical therapy program but she is trying. NEUROLOGIC: No focal deficit. Cranial nerves II through XII are grossly intact. No headache, no double vision or headache. SKIN: Not dry. Intact. Turgor - normal. LYMPHATIC: No palpable lymph nodes/no lymphedema. MUSCULOSKELETAL: Normal joints with no swelling. Muscle tone is normal. TIME SPENT: More than 30 minutes. Plan and coordination of the patient's care discussed in the presence of nurse. DEVAN
--- NOTE | 2016-12-27 11:12 | PN ---
DATE OF SERVICE: 12/26/16 SUBJECTIVE: The patient was seen and examined with nurse practitioner. 76-year-old white female hospitalized with right knee replacement. The patient's right knee is less swollen. No evidence of infection. The right calf is normal. No swelling. The patient is recovering from her weakness. Hemoglobin now is 10.5 with hematocrit 32. REVIEW OF SYSTEMS: CONSTITUTIONAL: No night sweats. No fatigue, malaise, lethargy. No fever or chills. HEENT: Eyes: No visual changes. No eye pain. No eye discharge. ENT: No runny nose. No epistaxis. No sinus pain. No sore throat. No odynophagia. No congestion. RESPIRATORY: No cough, no congestion. No hemoptysis. No shortness of breath. CARDIOVASCULAR: No angina symptoms. No CHF symptoms. No atypical chest pain for CAD. No palpitations. No orthopnea. GASTROINTESTINAL: No abdominal pain. No nausea or vomiting. No diarrhea or constipation. No hematemesis. No hematochezia. GENITOURINARY: No urgency. No frequency. No dysuria. No hematuria. No obstructive symptoms. No discharge. No pain. No significant abnormal bleeding. MUSCULOSKELETAL: Soreness of the right knee. NEUROLOGICAL: No headache. No neck pain. No syncope. No seizures. No dizziness. PSYCHIATRIC: Not anxious. No depression. No suicidal thoughts. No homicidal thoughts. SKIN: No rash. No lesions. No wounds. ENDOCRINE: No unexplained weight loss. No weight gain. HEMATOLOGIC/LYMPHATIC: No anemia. No purpura. No petechiae. No prolonged or excessive bleeding. No palpable lymph nodes. PHYSICAL EXAMINATION: HEENT: Head normocephalic, atraumatic. Eyes: Extraocular muscles are intact. Pupils are equal, round and reactive to light and accommodation. Ears: No lesions. Nose appeared normal. Throat: No exudate or erythema. NECK: Supple. No JVD, no carotid bruit. No lymphadenopathy or thyromegaly. LUNGS: Decreased breath sounds but clear to auscultation. Percussion note normal. Chest symmetrical. HEART: S1, S2, no S3. No murmurs. No cyanosis or clubbing. No ascites. Pulses: Dorsalis pedis and posterior tibial pulses +1 to +2 both sides. ABDOMEN: Soft. Nontender. Bowel sounds active. No CVA tenderness. No mass felt. EXTREMITIES: No edema. Full range of motion of all extremities, equal. NEUROLOGIC: No focal deficit. Cranial nerves II through XII are grossly intact. No headache, no double vision or headache. SKIN: Not dry. Intact. Turgor - normal. LYMPHATIC: No palpable lymph nodes/no lymphedema. MUSCULOSKELETAL: Normal joints with no swelling. Muscle tone is normal. ASSESSMENT: 1. RIGHT TOTAL KNEE REPLACEMENT RECOVERING VERY WELL. PLAN: 1. Continue to monitor CBC, CMP. 2. Encouraging patient to walk. TIME SPENT: More than 30 minutes. Plan and coordination of the patient's care discussed in the presence of nurse. DEVAN
[2016-12-27] MEDS: INSULIN GLARGINE HUM REC ANLOG 50 UNIT SQ SCH (17:14)
[2016-12-27] MEDS: MEVACOR PO SCH (20:20)
[2016-12-27] MEDS: ZANTAC PO SCH (20:20)
[2016-12-27] MEDS: ARICEPT PO SCH (20:21)
[2016-12-27] MEDS: ATIVAN PO PRN (23:28)
[2016-12-28 04:58] LABS: BASOPHILS % (AUTO) 0.2 % (0.0-3.0); EOSINOPHILS # (AUTO) 0.6 K/ul (0.0-0.7); EOSINOPHILS % (AUTO) 4.8 % (0.0-7.0); HEMOGLOBIN 10.1 g/dl (12.0-16.0); IMMATURE GRANULOCYTE % (AUTO) 1.2 % (0.0-5.0); LYMPHOCYTES # (AUTO) 1.8 K/uL (0.60-3.4); LYMPHOCYTES % (AUTO) 14.1 (10.0-50.0); MEAN CORPUSCULAR HEMOGLOBIN 28.9 pg (27.0-31.0); MEAN CORPUSCULAR HGB CONC 32.6 (31.8-35.4); MEAN CORPUSCULAR VOLUME 88.8 fl (81.0-99.0); MONOCYTES # (AUTO) 1.3 K/uL (0.4-2.0); MONOCYTES % (AUTO) 9.9 (0-10); NEUTROPHILS # (AUTO) 8.9 K/ul (2.0-6.9); NEUTROPHILS % (AUTO) 69.8; PLATELET COUNT 286 10^3/uL (140-440); RED BLOOD COUNT 3.49 10^6/ul (4.20-5.40)
[2016-12-28] MEDS: XOPENEX 1.25 MG NEB SCH ×4 (05:02→22:42)
[2016-12-28 05:22] LABS: ALBUMIN 2.5 g/dL (3.4-5.0); ALBUMIN/GLOBULIN RATIO 0.78; ANION GAP 17.2; BILIRUBIN,TOTAL 0.59 mg/dL (0.00-1.20); BUN/CREATININE RATIO 19.32; CALCIUM 8.9 mg/dL (8.2-10.2); CREATININE 1.19 mg/dL (0.60-1.30); POTASSIUM 4.2 mmol/L (3.5-5.10); TOTAL PROTEIN 5.7 g/dL (5.8-8.1)
[2016-12-28] MEDS: LASIX TAB PO SCH (05:40)
[2016-12-28] MEDS: GLUCOPHAGE PO SCH ×2 (05:40→17:05)
[2016-12-28] MEDS: NEURONTIN PO SCH (05:40)
[2016-12-28] MEDS: PROTONIX PO SCH ×2 (05:41→17:04)
[2016-12-28] MEDS: OXYCODONE PO PRN ×3 (08:21→22:23)
[2016-12-28] MEDS: LUTEIN PO SCH (08:56)
[2016-12-28] MEDS: MINERALS PO SCH (08:56)
[2016-12-28] MEDS: VITS A C E PO SCH (08:56)
[2016-12-28] MEDS: [UNRECOGNIZED DRUG - OTHER] PO SCH (08:56)
[2016-12-28] MEDS: LANOXIN PO SCH (08:57)
[2016-12-28] MEDS: NORVASC PO SCH (08:57)
[2016-12-28] MEDS: AMARYL PO SCH (08:57)
[2016-12-28] MEDS: VITAMIN D PO SCH (08:57)
[2016-12-28] MEDS: LEXAPRO PO SCH (08:57)
[2016-12-28] MEDS: TRIGLIDE PO SCH (08:57)
[2016-12-28] MEDS: NAMENDA PO SCH ×2 (08:57→20:41)
[2016-12-28] MEDS: PRADAXA PO SCH ×2 (08:58→20:41)
[2016-12-28] MEDS: LOTENSIN PO SCH (08:58)
[2016-12-28] MEDS: INSULIN GLARGINE HUM REC ANLOG 50 UNIT SQ SCH (17:03)
[2016-12-28] MEDS: ZANTAC PO SCH (20:41)
[2016-12-28] MEDS: MEVACOR PO SCH (20:41)
[2016-12-28] MEDS: ARICEPT PO SCH (20:41)
[2016-12-29] MEDS: ATIVAN PO PRN ×2 (00:55→22:16)
[2016-12-29] MEDS: OXYCODONE PO PRN (03:43)
[2016-12-29] MEDS: XOPENEX 1.25 MG NEB SCH ×4 (05:00→23:03)
[2016-12-29 05:25] LABS: BASOPHILS % (AUTO) 0.3 % (0.0-3.0); EOSINOPHILS # (AUTO) 0.6 K/ul (0.0-0.7); EOSINOPHILS % (AUTO) 4.7 % (0.0-7.0); HEMOGLOBIN 9.7 g/dl (12.0-16.0); IMMATURE GRANULOCYTE % (AUTO) 1.2 % (0.0-5.0); LYMPHOCYTES # (AUTO) 1.9 K/uL (0.60-3.4); LYMPHOCYTES % (AUTO) 15.1 (10.0-50.0); MEAN CORPUSCULAR HEMOGLOBIN 28.8 pg (27.0-31.0); MEAN CORPUSCULAR HGB CONC 32.3 (31.8-35.4); MONOCYTES % (AUTO) 8.1 (0-10); NEUTROPHILS % (AUTO) 70.6; PLATELET COUNT 328 10^3/uL (140-440); RED BLOOD COUNT 3.37 10^6/ul (4.20-5.40); WHITE BLOOD COUNT 12.68 K/ul (4.6-10.2)
[2016-12-29 05:48] LABS: ALBUMIN 2.5 g/dL (3.4-5.0); ALBUMIN/GLOBULIN RATIO 0.78; ANION GAP 10.2; BILIRUBIN,TOTAL 0.43 mg/dL (0.00-1.20); BUN/CREATININE RATIO 22.22; CALCIUM 8.7 mg/dL (8.2-10.2); CREATININE 1.26 mg/dL (0.60-1.30); POTASSIUM 4.2 mmol/L (3.5-5.10); TOTAL PROTEIN 5.7 g/dL (5.8-8.1)
[2016-12-29] MEDS: LASIX TAB PO SCH (06:20)
[2016-12-29] MEDS: NEURONTIN PO SCH (06:20)
[2016-12-29] MEDS: PROTONIX PO SCH ×2 (06:20→17:38)
[2016-12-29] MEDS: LOTENSIN PO SCH (08:57)
[2016-12-29] MEDS: VITS A C E PO SCH (08:57)
[2016-12-29] MEDS: [UNRECOGNIZED DRUG - OTHER] PO SCH (08:57)
[2016-12-29] MEDS: MINERALS PO SCH (08:57)
[2016-12-29] MEDS: GLUCOPHAGE PO SCH ×2 (08:57→17:38)
[2016-12-29] MEDS: LEXAPRO PO SCH (08:57)
[2016-12-29] MEDS: PRADAXA PO SCH ×2 (08:57→20:46)
[2016-12-29] MEDS: LANOXIN PO SCH (08:57)
[2016-12-29] MEDS: LUTEIN PO SCH (08:57)
[2016-12-29] MEDS: NORVASC PO SCH (08:58)
[2016-12-29] MEDS: VITAMIN D PO SCH (08:58)
[2016-12-29] MEDS: TRIGLIDE PO SCH (08:58)
[2016-12-29] MEDS: NAMENDA PO SCH ×2 (08:58→20:46)
[2016-12-29] MEDS: AMARYL PO SCH (08:58)
[2016-12-29] MEDS: INSULIN GLARGINE HUM REC ANLOG 50 UNIT SQ SCH (17:38)
[2016-12-29] MEDS: ZANTAC PO SCH (20:46)
[2016-12-29] MEDS: ARICEPT PO SCH (20:46)
[2016-12-29] MEDS: MEVACOR PO SCH (20:47)
[2016-12-30 04:46] LABS: BASOPHILS # (AUTO) 0.1 K/uL (0-0.2); BASOPHILS % (AUTO) 0.4 % (0.0-3.0); EOSINOPHILS # (AUTO) 0.5 K/ul (0.0-0.7); EOSINOPHILS % (AUTO) 4.6 % (0.0-7.0); HEMATOCRIT 31.1 % (37.0-47.0); HEMOGLOBIN 10.2 g/dl (12.0-16.0); LYMPHOCYTES # (AUTO) 1.6 K/uL (0.60-3.4); LYMPHOCYTES % (AUTO) 13.6 (10.0-50.0); MEAN CORPUSCULAR HEMOGLOBIN 29.1 pg (27.0-31.0); MEAN CORPUSCULAR HGB CONC 32.8 (31.8-35.4); MEAN CORPUSCULAR VOLUME 88.6 fl (81.0-99.0); MONOCYTES # (AUTO) 0.9 K/uL (0.4-2.0); NEUTROPHILS # (AUTO) 8.4 K/ul (2.0-6.9); NEUTROPHILS % (AUTO) 72.4; PLATELET COUNT 350 10^3/uL (140-440); RED BLOOD COUNT 3.51 10^6/ul (4.20-5.40); WHITE BLOOD COUNT 11.58 K/ul (4.6-10.2)
[2016-12-30] MEDS: XOPENEX 1.25 MG NEB SCH ×4 (05:07→23:12)
[2016-12-30 05:10] LABS: ALBUMIN 2.7 g/dL (3.4-5.0); ALBUMIN/GLOBULIN RATIO 0.84; BILIRUBIN,TOTAL 0.51 mg/dL (0.00-1.20); BUN/CREATININE RATIO 20.47; CREATININE 1.27 mg/dL (0.60-1.30); TOTAL PROTEIN 5.9 g/dL (5.8-8.1)
[2016-12-30] MEDS: NEURONTIN PO SCH (05:57)
[2016-12-30] MEDS: LASIX TAB PO SCH (05:57)
[2016-12-30] MEDS: PROTONIX PO SCH ×2 (05:57→16:50)
[2016-12-30] MEDS: LANOXIN PO SCH (08:32)
[2016-12-30] MEDS: PRADAXA PO SCH ×2 (08:33→20:38)
[2016-12-30] MEDS: MINERALS PO SCH (08:33)
[2016-12-30] MEDS: VITS A C E PO SCH (08:33)
[2016-12-30] MEDS: [UNRECOGNIZED DRUG - OTHER] PO SCH (08:33)
[2016-12-30] MEDS: LUTEIN PO SCH (08:33)
[2016-12-30] MEDS: AMARYL PO SCH (08:33)
[2016-12-30] MEDS: VITAMIN D PO SCH (08:34)
[2016-12-30] MEDS: LOTENSIN PO SCH (08:34)
[2016-12-30] MEDS: GLUCOPHAGE PO SCH ×2 (08:34→16:51)
[2016-12-30] MEDS: NORVASC PO SCH (08:34)
[2016-12-30] MEDS: LEXAPRO PO SCH (08:34)
[2016-12-30] MEDS: NAMENDA PO SCH ×2 (08:34→20:39)
[2016-12-30] MEDS: TRIGLIDE PO SCH (08:34)
[2016-12-30] MEDS: OXYCODONE PO PRN ×2 (09:26→15:43)
--- NOTE | 2016-12-30 11:36 | PCM.PROG ---
Attending Provider: ATTENDING PROVIDER: Dr. FRENCH JACOBSON DATE OF SERVICE: 12/30/16 SUBJECTIVE: This 76 year old WHITE/ F was hospitalized 12/21/16. The patient is seen with Antoinette, Nurse Practitioner. She is lying in bed, alert, states she slept well last night. The pain is controlled only complains of stiffness. REVIEW OF SYSTEMS: CONSTITUTIONAL: No night sweats. No fatigue, malaise, lethargy. No fever or chills. HEENT: Eyes: No visual changes. No eye pain. No eye discharge. ENT: No runny nose. No epistaxis. No sinus pain. No odynophagia. No congestion. RESPIRATORY: No cough, no congestion. No hemoptysis. No shortness of breath. CARDIOVASCULAR: No angina symptoms. No CHF symptoms. No atypical chest pain for CAD. No palpitations. No orthopnea.. GASTROINTESTINAL: No abdominal pain. No nausea or vomiting. No diarrhea or constipation. No hematemesis. No hematochezia. GENITOURINARY: No urgency. No frequency. No dysuria. No hematuria. No obstructive symptoms. No discharge. No pain. No significant abnormal bleeding. MUSCULOSKELETAL: Right knee pain and stiffness. NEUROLOGICAL: Awake, alert, oriented to time, place and person. No headache. No neck pain. No syncope. No seizures. No dizziness. PSYCHIATRIC: Not anxious. No depression. No suicidal thoughts. No homicidal thoughts. SKIN: No rash. Right knee incision. ENDOCRINE: No unexplained weight loss. No weight gain. HEMATOLOGIC/LYMPHATIC: Anemia. No purpura. No petechiae. No prolonged or excessive bleeding. No palpable lymph nodes. PHYSICAL EXAMINATION: GENERAL: The patient is awake, alert and oriented, lying in bed in no distress. VITAL SIGNS: Temperature 97.8 F, Pulse 74, Respiratory Rate 20, BP 114/66, Pulse Ox 91% HEENT: Head normocephalic, atraumatic. Eyes: Extraocular muscles are intact. Pupils are equal, round and reactive to light and accommodation. Ears: No lesions. Nose appeared normal. Throat: No exudate or erythema. NECK: Supple. No JVD, no carotid bruit. No lymphadenopathy or thyromegaly. LUNGS: Diminished with clear equal breath sounds. Clear to auscultation. Percussion note normal. Chest symmetrical. HEART: Irregular heart beat. S1, S2, no S3. No murmurs. No cyanosis or clubbing. No ascites. Pulses: Dorsalis pedis and posterior tibial pulses +1 to +2 both sides. ABDOMEN: Soft. Non-tender. Bowel sounds active. No CVA tenderness. No mass felt. EXTREMITIES: No edema. Full range of motion of all extremities, equal. NEUROLOGIC: No focal deficit. Cranial nerves II through XII are grossly intact. No headache, no double vision or headache. SKIN: Warm and dry. Right knee incision is clean, dry and intact with no signs of infection. No edema. LYMPHATIC: No palpable lymph nodes/no lymphedema. MUSCULOSKELETAL: Normal joints with no swelling. Muscle tone is normal. LAB REVIEW: 12/30/16 04:44 12/30/16 04:44 12/30/16 04:44: Sodium 137, Potassium 4.0, Chloride 98, Carbon Dioxide 29, Anion Gap 14.0, BUN 26 H, Creatinine 1.27, Estimated GFR (MDRD) 41.00, BUN/ Creatinine Ratio 20.47, Glucose 88, Calcium 9.0, Total Bilirubin 0.51, AST 12 L , ALT 14, Alkaline Phosphatase 48 L, Total Protein 5.9, Albumin 2.7 L, Globulin 3.2, Albumin/Globulin Ratio 0.84 12/30/16 04:44: WBC 11.58 H, RBC 3.51 L, Hgb 10.2 L, Hct 31.1 L, MCV 88.6, MCH 29.1, MCHC 32.8, RDW Coeff of Monique 14.5, Plt Count 350, Immature Gran % (Auto) 1.0, Neut % (Auto) 72.4, Lymph % (Auto) 13.6, [place] % (Auto) 8.0, Eos % (Auto) 4.6, Baso % (Auto) 0.4, Immature Gran # (Auto) 0.1, Neut # 8.4 H, Lymph # 1.6, [place] # 0.9, Eos # 0.5, Baso # 0.1 ASSESSMENT: 1. Right knee osteoarthritis with total knee replacement 2. Atrial fibrillation 3. Anemia due to surgery 4. Diabetes mellitus type 2 PLAN: 1. Continue PT/OT 2. Up and about as tolerated Plan and coordination of the patient's care discussed in the presence of Watch Repairer and nurse. CONDITION: Stable SCRIBED BY: SERVANDO CANALES, Application Support Analyst scribed while in presence of service performed by Dr. FRENCH JACOBSON/ANTOINETTE CARRILLO APRN on 12/30/16 ([id number])
[2016-12-30] MEDS ORDERED: DECADRON 4 MG/ML SDV IM STA (11:41)
--- NOTE | 2016-12-30 12:01 | DI ---
EXAM: Four views of the right knee. History: Right knee pain and trauma. Findings: Grossly intact right total knee arthroplasty hardware. No acute fracture or dislocation. Subcutaneous edema. Impression: No acute osseous abnormality. Grossly intact hardware. Subcutaneous edema.
--- NOTE | 2016-12-30 13:12 | PN ---
DATE OF SERVICE: 12/27/16 SUBJECTIVE: The patient is doing well. Hgb and hct are stable. Less soreness and more cheerful today. PHYSICAL EXAMINATION: VITAL SIGNS: Temperature 97.6, pulse 78, respiratory rate 16, blood pressure 129/70 and pulse ox 95%. HEENT: Head normocephalic, atraumatic. Eyes: Extraocular muscles are intact. Pupils are equal, round and reactive to light and accommodation. Ears: No lesions. Nose appeared normal. Throat: No exudate or erythema. NECK: Supple. No JVD, no carotid bruit. No lymphadenopathy or thyromegaly. LUNGS: Clear to auscultation. Percussion note normal. Chest symmetrical. HEART: S1, S2, no S3. No murmurs. No cyanosis or clubbing. No ascites. Pulses: Dorsalis pedis and posterior tibial pulses +1 to +2 both sides. ABDOMEN: Soft. Nontender. Bowel sounds active. No CVA tenderness. No mass felt. EXTREMITIES: No edema. Full range of motion of all extremities, equal. Right knee looks good, incision looks normal. Calf muscles are nontender NEUROLOGIC: No focal deficit. Cranial nerves II through XII are grossly intact. No headache, no double vision or headache. SKIN: Not dry. Intact. Turgor - normal. LYMPHATIC: No palpable lymph nodes/no lymphedema. MUSCULOSKELETAL: Normal joints with no swelling. Muscle tone is normal. Stable condition and progressing well. The patient was seen and examined with Nurse Practitioner. TIME SPENT: More than 30 minutes. Plan and coordination of the patient's care discussed in the presence of nurse. DEVAN
--- NOTE | 2016-12-30 15:34 | PN ---
DATE OF SERVICE: 12/28/16 SUBJECTIVE: The patient is a 76 year old white female hospitalized with right knee replacement. The patient's condition has improved. The patient is up and about today. I saw her walking with the walker. Still soreness of the right knee. REVIEW OF SYSTEMS: CONSTITUTIONAL: No night sweats. No fatigue, malaise, lethargy. No fever or chills. HEENT: Eyes: No visual changes. No eye pain. No eye discharge. ENT: No runny nose. No epistaxis. No sinus pain. No sore throat. No odynophagia. No congestion. RESPIRATORY: No cough, no congestion. No hemoptysis. No shortness of breath. CARDIOVASCULAR: No angina symptoms. No CHF symptoms. No atypical chest pain for CAD. No palpitations. No orthopnea. No PND. GASTROINTESTINAL: No abdominal pain. No nausea or vomiting. No diarrhea or constipation. No hematemesis. No hematochezia. GENITOURINARY: No urgency. No frequency. No dysuria. No hematuria. No obstructive symptoms. No discharge. No pain. No significant abnormal bleeding. MUSCULOSKELETAL: No musculoskeletal pain; no joint swelling. NEUROLOGICAL: No headache. No neck pain. No syncope. No seizures. No dizziness. PSYCHIATRIC: Not anxious. No depression. No suicidal thoughts. No homicidal thoughts. SKIN: No rash. No lesions. No wounds. ENDOCRINE: No unexplained weight loss. No weight gain. HEMATOLOGIC/LYMPHATIC: No anemia. No purpura. No petechiae. No prolonged or excessive bleeding. No palpable lymph nodes. PHYSICAL EXAMINATION: GENERAL: The patient is oriented to time, place and person. VITAL SIGNS: Temperature 97.7, pulse 80, respiratory rate 16, blood pressure 120/74 with pulse ox 92%. HEENT: Head normocephalic, atraumatic. Eyes: Extraocular muscles are intact. Pupils are equal, round and reactive to light and accommodation. Ears: No lesions. Nose appeared normal. Throat: No exudate or erythema. NECK: Supple. No JVD, no carotid bruit. No lymphadenopathy or thyromegaly. LUNGS: Decreased breath sounds but clear to auscultation. Percussion note normal. Chest symmetrical. HEART: S1, S2, no S3. No murmurs. No cyanosis or clubbing. No ascites. Pulses: Dorsalis pedis and posterior tibial pulses +1 to +2 both sides. ABDOMEN: Soft. Nontender. Bowel sounds active. No CVA tenderness. No mass felt. EXTREMITIES: No edema. Full range of motion of all extremities, equal. Right knee looks good less swelling. Incision looks clear. Calf muscles non tender NEUROLOGIC: No focal deficit. Cranial nerves II through XII are grossly intact. No headache, no double vision or headache. SKIN: Not dry. Intact. Turgor - normal. LYMPHATIC: No palpable lymph nodes/no lymphedema. MUSCULOSKELETAL: Normal joints with no swelling. Muscle tone is normal. LABS: Hgb 10.1, hct 31, WBC 12,000 normal differential, creatinine 1.1, BUN 23, potassium 4.2 ASSESSMENT: 1. Right knee replacement, healing up very well. 2. Chronic lung disease, stable 3. Anemia, stable. The patient was given blood transfusion but no evidence of bleeding. Condition: Stable. TIME SPENT: More than 30 minutes. Plan and coordination of the patient's care discussed in the presence of nurse. DEVAN
[2016-12-30] MEDS: INSULIN GLARGINE HUM REC ANLOG 50 UNIT SQ SCH (16:48)
[2016-12-30] MEDS: ARICEPT PO SCH (20:38)
[2016-12-30] MEDS: MEVACOR PO SCH (20:39)
[2016-12-30] MEDS: ZANTAC PO SCH (20:40)
[2016-12-30] MEDS: ATIVAN PO PRN (23:31)
[2016-12-31 04:48] LABS: BASOPHILS % (AUTO) 0.2 % (0.0-3.0); EOSINOPHILS % (AUTO) 0.1 % (0.0-7.0); HEMATOCRIT 29.5 % (37.0-47.0); HEMOGLOBIN 9.6 g/dl (12.0-16.0); IMMATURE GRANULOCYTE % (AUTO) 1.5 % (0.0-5.0); LYMPHOCYTES # (AUTO) 1.2 K/uL (0.60-3.4); LYMPHOCYTES % (AUTO) 7.5 (10.0-50.0); MEAN CORPUSCULAR HEMOGLOBIN 28.7 pg (27.0-31.0); MEAN CORPUSCULAR HGB CONC 32.5 (31.8-35.4); MEAN CORPUSCULAR VOLUME 88.3 fl (81.0-99.0); MONOCYTES % (AUTO) 5.9 (0-10); NEUTROPHILS # (AUTO) 13.6 K/ul (2.0-6.9); NEUTROPHILS % (AUTO) 84.8; PLATELET COUNT 362 10^3/uL (140-440); RED BLOOD COUNT 3.34 10^6/ul (4.20-5.40); WHITE BLOOD COUNT 16.08 K/ul (4.6-10.2)
[2016-12-31] MEDS: XOPENEX 1.25 MG NEB SCH ×4 (05:07→23:14)
[2016-12-31 05:14] LABS: ALBUMIN 2.7 g/dL (3.4-5.0); ALBUMIN/GLOBULIN RATIO 0.84; ANION GAP 13.5; BILIRUBIN,TOTAL 0.32 mg/dL (0.00-1.20); BUN/CREATININE RATIO 22.31; CREATININE 1.21 mg/dL (0.60-1.30); POTASSIUM 4.5 mmol/L (3.5-5.10); TOTAL PROTEIN 5.9 g/dL (5.8-8.1)
[2016-12-31] MEDS: PROTONIX PO SCH ×2 (05:38→17:55)
[2016-12-31] MEDS: NEURONTIN PO SCH (05:39)
[2016-12-31] MEDS: LASIX TAB PO SCH (05:39)
[2016-12-31] MEDS: MINERALS PO SCH (07:59)
[2016-12-31] MEDS: [UNRECOGNIZED DRUG - OTHER] PO SCH (07:59)
[2016-12-31] MEDS: VITS A C E PO SCH (07:59)
[2016-12-31] MEDS: LUTEIN PO SCH (07:59)
[2016-12-31] MEDS: AMARYL PO SCH (07:59)
[2016-12-31] MEDS: TRIGLIDE PO SCH (08:00)
[2016-12-31] MEDS: LOTENSIN PO SCH (08:00)
[2016-12-31] MEDS: PRADAXA PO SCH ×2 (08:01→20:25)
[2016-12-31] MEDS: VITAMIN D PO SCH (08:01)
[2016-12-31] MEDS: NAMENDA PO SCH ×2 (08:01→20:24)
[2016-12-31] MEDS: GLUCOPHAGE PO SCH ×2 (08:01→17:55)
[2016-12-31] MEDS: NORVASC PO SCH (08:01)
[2016-12-31] MEDS: LEXAPRO PO SCH (08:01)
[2016-12-31] MEDS: LANOXIN PO SCH (08:02)
[2016-12-31] MEDS: OXYCODONE PO PRN ×3 (09:19→22:37)
--- NOTE | 2016-12-31 11:39 | PN ---
DATE OF SERVICE: 12/30/16 SUBJECTIVE: The patient was seen and examined with Nurse Practitioner and Nursery Teacher. The patient is doing well. The soreness in the right knee is much less than before. She is up and about with the walker. The calf muscles are nontender and the incision is clear with no infection. Her cardiovascular status on physical exam is negative. No symptoms of CHF or coronary insufficiency. The patient is advised to lose weight, she is morbidly obese. CONDITION: Stable. TIME SPENT: More than 30 minutes. Plan and coordination of the patient's care discussed in the presence of nurse. DEVAN
[2016-12-31] MEDS: INSULIN GLARGINE HUM REC ANLOG 50 UNIT SQ SCH (17:56)
[2016-12-31] MEDS: ARICEPT PO SCH (20:24)
[2016-12-31] MEDS: MEVACOR PO SCH (20:25)
[2016-12-31] MEDS: ZANTAC PO SCH (20:25)
[2016-12-31] MEDS: ATIVAN PO PRN (23:33)
[2017-01-01] MEDS: OXYCODONE PO PRN ×3 (02:35→16:34)
[2017-01-01 04:52] LABS: BASOPHILS # (AUTO) 0.1 K/uL (0-0.2); BASOPHILS % (AUTO) 0.5 % (0.0-3.0); EOSINOPHILS # (AUTO) 0.4 K/ul (0.0-0.7); EOSINOPHILS % (AUTO) 2.7 % (0.0-7.0); HEMATOCRIT 30.3 % (37.0-47.0); HEMOGLOBIN 9.7 g/dl (12.0-16.0); IMMATURE GRANULOCYTE % (AUTO) 1.2 % (0.0-5.0); LYMPHOCYTES # (AUTO) 2.4 K/uL (0.60-3.4); LYMPHOCYTES % (AUTO) 17.7 (10.0-50.0); MEAN CORPUSCULAR HEMOGLOBIN 28.5 pg (27.0-31.0); MEAN CORPUSCULAR VOLUME 89.1 fl (81.0-99.0); MONOCYTES % (AUTO) 7.2 (0-10); NEUTROPHILS # (AUTO) 9.6 K/ul (2.0-6.9); NEUTROPHILS % (AUTO) 70.7; PLATELET COUNT 376 10^3/uL (140-440); WHITE BLOOD COUNT 13.53 K/ul (4.6-10.2)
[2017-01-01] MEDS: XOPENEX 1.25 MG NEB SCH ×4 (05:10→23:10)
[2017-01-01 05:12] LABS: ALBUMIN 2.7 g/dL (3.4-5.0); ALBUMIN/GLOBULIN RATIO 0.82; ANION GAP 13.9; BILIRUBIN,TOTAL 0.27 mg/dL (0.00-1.20); BUN/CREATININE RATIO 21.87; CALCIUM 8.8 mg/dL (8.2-10.2); CREATININE 1.28 mg/dL (0.60-1.30); POTASSIUM 3.9 mmol/L (3.5-5.10)
[2017-01-01] MEDS: LASIX TAB PO SCH (05:39)
[2017-01-01] MEDS: PROTONIX PO SCH ×2 (05:39→16:34)
[2017-01-01] MEDS: NEURONTIN PO SCH (05:39)
[2017-01-01] MEDS ORDERED: GLUCOPHAGE PO SCH (08:41)
[2017-01-01] MEDS ORDERED: INSULIN GLARGINE HUM REC ANLOG 40 UNIT SQ SCH (08:42)
[2017-01-01] MEDS: GLUCOPHAGE PO SCH ×3 (09:27→17:48)
--- NOTE | 2017-01-01 09:27 | PN ---
DATE OF SERVICE: 12/31/16 SUBJECTIVE: The patient was seen and examined with Nurse Practitioner and Parboiler. She is up and about sitting up comfortably in the chair complaining of soreness of the right knee. Yesterday she had twisted her right knee. The x-ray doesn't show any acute changes. Today she feels a lot better and doesn't have any extra pain. PHYSICAL EXAMINATION: HEENT: Head normocephalic, atraumatic. Eyes: Extraocular muscles are intact. Pupils are equal, round and reactive to light and accommodation. Ears: No lesions. Nose appeared normal. Throat: No exudate or erythema. NECK: Supple. No JVD, no carotid bruit. No lymphadenopathy or thyromegaly. LUNGS: Clear to auscultation. Percussion note normal. Chest symmetrical. HEART: S1, S2, no S3. No murmurs. No cyanosis or clubbing. No ascites. Pulses: Dorsalis pedis and posterior tibial pulses +1 to +2 both sides. ABDOMEN: Soft. Nontender. Bowel sounds active. No CVA tenderness. No mass felt. EXTREMITIES: No edema. Full range of motion of all extremities, equal. Right knee much less swelling then before. Incision healing good with no infection. Calf muscles are non-tender. NEUROLOGIC: No focal deficit. Cranial nerves II through XII are grossly intact. No headache, no double vision or headache. SKIN: Not dry. Intact. Turgor - normal. LYMPHATIC: No palpable lymph nodes/no lymphedema. MUSCULOSKELETAL: Normal joints with no swelling. Muscle tone is normal. PLAN: 1. Going to visit to figure out whether she could be taken care of at home or not so she is going on a home visit. CONDITION: Improving. TIME SPENT: More than 30 minutes. Plan and coordination of the patient's care discussed in the presence of nurse. DEVAN
[2017-01-01] MEDS: LOTENSIN PO SCH (09:28)
[2017-01-01] MEDS: LUTEIN PO SCH (09:28)
[2017-01-01] MEDS: TRIGLIDE PO SCH (09:28)
[2017-01-01] MEDS: [UNRECOGNIZED DRUG - OTHER] PO SCH (09:28)
[2017-01-01] MEDS: VITS A C E PO SCH (09:28)
[2017-01-01] MEDS: MINERALS PO SCH (09:28)
[2017-01-01] MEDS: LANOXIN PO SCH (09:29)
[2017-01-01] MEDS: LEXAPRO PO SCH (09:29)
[2017-01-01] MEDS: VITAMIN D PO SCH (09:29)
[2017-01-01] MEDS: NORVASC PO SCH (09:29)
[2017-01-01] MEDS: NAMENDA PO SCH ×2 (09:29→20:30)
[2017-01-01] MEDS: AMARYL PO SCH (09:29)
[2017-01-01] MEDS: PRADAXA PO SCH ×2 (09:29→20:28)
--- NOTE | 2017-01-01 11:46 | PCM.PROG ---
Attending Provider: ATTENDING PROVIDER: Dr. FRENCH JACOBSON DATE OF SERVICE: 01/01/17 SUBJECTIVE: This 76 year old WHITE/ F was hospitalized 12/21/16. The patient is in swing bed for right knee replacement and is doing well with less swelling, less soreness. She is up and about with a walker. Other problems noted today are hypoglycemia so will back off Glucophage to 1000 mg q.a.m. and p.m. and decrease Toujeo from 50 units to 40 units. REVIEW OF SYSTEMS: CONSTITUTIONAL: No night sweats. No fatigue, malaise, lethargy. No fever or chills. HEENT: Eyes: No visual changes. No eye pain. No eye discharge. ENT: No runny nose. No epistaxis. No sinus pain. No odynophagia. No congestion. RESPIRATORY: No cough, no congestion. No hemoptysis. No shortness of breath. CARDIOVASCULAR: No angina symptoms. No CHF symptoms. No atypical chest pain for CAD. No palpitations. No orthopnea.. GASTROINTESTINAL: No abdominal pain. No nausea or vomiting. No diarrhea or constipation. No hematemesis. No hematochezia. GENITOURINARY: No urgency. No frequency. No dysuria. No hematuria. No obstructive symptoms. No discharge. No pain. No significant abnormal bleeding. MUSCULOSKELETAL: No musculoskeletal pain; no joint swelling. NEUROLOGICAL: Awake, alert, oriented to time, place and person. No headache. No neck pain. No syncope. No seizures. No dizziness. PSYCHIATRIC: Not anxious. No depression. No suicidal thoughts. No homicidal thoughts. SKIN: No rash. Right knee incision without infection. ENDOCRINE: No unexplained weight loss. No weight gain. HEMATOLOGIC/LYMPHATIC: No anemia. No purpura. No petechiae. No prolonged or excessive bleeding. No palpable lymph nodes. PHYSICAL EXAMINATION: GENERAL: The patient is awake, alert and oriented, lsitting in bed in no distress. VITAL SIGNS: Temperature 97.5 F, Pulse 77, Respiratory Rate 18, BP 108/66, Pulse Ox 98% HEENT: Head normocephalic, atraumatic. Eyes: Extraocular muscles are intact. Pupils are equal, round and reactive to light and accommodation. Ears: No lesions. Nose appeared normal. Throat: No exudate or erythema. NECK: Supple. No JVD, no carotid bruit. No lymphadenopathy or thyromegaly. LUNGS: Clear to auscultation. Percussion note normal. Chest symmetrical. HEART: S1, S2, no S3. No murmurs. No cyanosis or clubbing. No ascites. Pulses: Dorsalis pedis and posterior tibial pulses +1 to +2 both sides. ABDOMEN: Soft. Non-tender. Bowel sounds active. No CVA tenderness. No mass felt. EXTREMITIES: No edema. Full range of motion of all extremities, equal. NEUROLOGIC: No focal deficit. Cranial nerves II through XII are grossly intact. No headache, no double vision or headache. SKIN: Not dry. Intact. Turgor-normal. LYMPHATIC: No palpable lymph nodes/no lymphedema. MUSCULOSKELETAL: Normal joints with no swelling. Muscle tone is normal. LAB REVIEW: 01/01/17 04:30 01/01/17 04:30 01/01/17 04:30: Sodium 138, Potassium 3.9, Chloride 101, Carbon Dioxide 27, Anion Gap 13.9, BUN 28 H, Creatinine 1.28, Estimated GFR (MDRD) 41.00, BUN/ Creatinine Ratio 21.87, Glucose 63 L D, Calcium 8.8, Total Bilirubin 0.27, AST 11 L, ALT 14, Alkaline Phosphatase 49 L, Total Protein 6.0, Albumin 2.7 L, Globulin 3.3, Albumin/Globulin Ratio 0.82 01/01/17 04:30: WBC 13.53 H, RBC 3.40 L, Hgb 9.7 L, Hct 30.3 L, MCV 89.1, MCH 28.5, MCHC 32.0, RDW Coeff of Monique 14.6, Plt Count 376, Immature Gran % (Auto) 1.2, Neut % (Auto) 70.7, Lymph % (Auto) 17.7, [place] % (Auto) 7.2, Eos % (Auto) 2.7, Baso % (Auto) 0.5, Immature Gran # (Auto) 0.2, Neut # 9.6 H, Lymph # 2.4, [place] # 1.0, Eos # 0.4, Baso # 0.1 ASSESSMENT: 1. RIGHT KNEE OSTEOARTHRITIS WITH TOTAL KNEE REPLACEMENT PLAN: 1. Encourage the patient to walk. 2. Discussed Home Health for nursing, PT/OT. The patient is agreeable and has chosen [facility]. 3. Will discharge tomorrow. Plan and coordination of the patient's care discussed in the presence of Water Meter Mechanic and nurse. CONDITION: Stable SCRIBED BY: Cassia JONES scribed while in presence of service performed by Dr. FRENCH JACOBSON on 01/01/17 ([id number])
[2017-01-01 18:09] VITALS: TEMP 97.9
[2017-01-01] MEDS: ZANTAC PO SCH (20:29)
[2017-01-01] MEDS: MEVACOR PO SCH (20:30)
[2017-01-01] MEDS: ARICEPT PO SCH (20:30)
[2017-01-02 04:41] LABS: BASOPHILS # (AUTO) 0.1 K/uL (0-0.2); BASOPHILS % (AUTO) 0.4 % (0.0-3.0); EOSINOPHILS # (AUTO) 0.5 K/ul (0.0-0.7); EOSINOPHILS % (AUTO) 4.2 % (0.0-7.0); HEMOGLOBIN 10.5 g/dl (12.0-16.0); IMMATURE GRANULOCYTE % (AUTO) 0.9 % (0.0-5.0); LYMPHOCYTES # (AUTO) 1.7 K/uL (0.60-3.4); MEAN CORPUSCULAR HGB CONC 32.8 (31.8-35.4); MEAN CORPUSCULAR VOLUME 88.4 fl (81.0-99.0); MONOCYTES # (AUTO) 0.9 K/uL (0.4-2.0); MONOCYTES % (AUTO) 8.3 (0-10); NEUTROPHILS % (AUTO) 71.2; PLATELET COUNT 396 10^3/uL (140-440); RED BLOOD COUNT 3.62 10^6/ul (4.20-5.40); WHITE BLOOD COUNT 11.26 K/ul (4.6-10.2)
[2017-01-02 04:56] LABS: ALBUMIN 2.8 g/dL (3.4-5.0); ALBUMIN/GLOBULIN RATIO 0.9; ANION GAP 12.2; BILIRUBIN,TOTAL 0.34 mg/dL (0.00-1.20); BUN/CREATININE RATIO 23.96; CALCIUM 9.2 mg/dL (8.2-10.2); CREATININE 1.21 mg/dL (0.60-1.30); POTASSIUM 4.2 mmol/L (3.5-5.10); TOTAL PROTEIN 5.9 g/dL (5.8-8.1)
[2017-01-02] MEDS: XOPENEX 1.25 MG NEB SCH ×2 (05:13→11:41)
[2017-01-02 05:14] VITALS: BP 115/71
[2017-01-02] MEDS: PROTONIX PO SCH (05:38)
[2017-01-02] MEDS: LASIX TAB PO SCH (05:38)
[2017-01-02] MEDS: NEURONTIN PO SCH (05:39)
--- NOTE | 2017-01-02 08:45 | PCM.PROG ---
Attending Provider: ATTENDING PROVIDER: Dr. FRENCH JACOBSON DATE OF SERVICE: 01/02/17 SUBJECTIVE: This 76 year old WHITE/ F was hospitalized 12/21/16. The patient is seen with Antoinette, Nurse Practitioner. She is lying in bed, alert, states she slept well, is feeling well. She has an appointment with Dr. Librado Jacobson today and will discharge home with Home Health, PT/OT. REVIEW OF SYSTEMS: CONSTITUTIONAL: No night sweats. No fatigue, malaise, lethargy. No fever or chills. HEENT: Eyes: No visual changes. No eye pain. No eye discharge. ENT: No runny nose. No epistaxis. No sinus pain. No odynophagia. No congestion. RESPIRATORY: No cough, no congestion. No hemoptysis. No shortness of breath. CARDIOVASCULAR: No angina symptoms. No CHF symptoms. No atypical chest pain for CAD. No palpitations. No orthopnea.. GASTROINTESTINAL: No abdominal pain. No nausea or vomiting. No diarrhea or constipation. No hematemesis. No hematochezia. GENITOURINARY: No urgency. No frequency. No dysuria. No hematuria. No obstructive symptoms. No discharge. No pain. No significant abnormal bleeding. MUSCULOSKELETAL: Right knee pain. NEUROLOGICAL: Awake, alert, oriented to time, place and person. No headache. No neck pain. No syncope. No seizures. No dizziness. PSYCHIATRIC: Not anxious. No depression. No suicidal thoughts. No homicidal thoughts. SKIN: No rash. Right knee incision, clean and dry. ENDOCRINE: No unexplained weight loss. No weight gain. HEMATOLOGIC/LYMPHATIC: No anemia. No purpura. No petechiae. No prolonged or excessive bleeding. No palpable lymph nodes. PHYSICAL EXAMINATION: GENERAL: The patient is awake, alert and oriented, lying in bed in no distress. VITAL SIGNS: Temperature 97.9 F, Pulse 77, Respiratory Rate 16, BP 115/71, Pulse Ox 94% HEENT: Head normocephalic, atraumatic. Eyes: Extraocular muscles are intact. Pupils are equal, round and reactive to light and accommodation. Ears: No lesions. Nose appeared normal. Throat: No exudate or erythema. NECK: Supple. No JVD, no carotid bruit. No lymphadenopathy or thyromegaly. LUNGS: Diminished breath sounds, clear to auscultation. Percussion note normal. Chest symmetrical. HEART: Irregular heart beat. S1, S2, no S3. No murmurs. No cyanosis or clubbing. No ascites. Pulses: Dorsalis pedis and posterior tibial pulses +1 to +2 both sides. ABDOMEN: Soft. Non-tender. Bowel sounds active. No CVA tenderness. No mass felt. EXTREMITIES: Appropriate swelling of right knee. Incision is clean and dry with no signs of infection. Full range of motion of all extremities, equal. NEUROLOGIC: No focal deficit. Cranial nerves II through XII are grossly intact. No headache, no double vision or headache. SKIN: Warm and dry. Intact. Turgor-normal. LYMPHATIC: No palpable lymph nodes/no lymphedema. MUSCULOSKELETAL: Normal joints with no swelling. Muscle tone is normal. LAB REVIEW: 01/02/17 04:30 01/02/17 04:30 01/02/17 04:30: Sodium 136, Potassium 4.2, Chloride 99, Carbon Dioxide 29, Anion Gap 12.2, BUN 29 H, Creatinine 1.21, Estimated GFR (MDRD) 43.00, BUN/ Creatinine Ratio 23.96, Glucose 115 D, Calcium 9.2, Total Bilirubin 0.34, AST 11 L, ALT 14, Alkaline Phosphatase 47 L, Total Protein 5.9, Albumin 2.8 L, Globulin 3.1, Albumin/Globulin Ratio 0.90 01/02/17 04:30: WBC 11.26 H, RBC 3.62 L, Hgb 10.5 L, Hct 32.0 L, MCV 88.4, MCH 29.0, MCHC 32.8, RDW Coeff of Monique 14.5, Plt Count 396, Immature Gran % (Auto) 0.9, Neut % (Auto) 71.2, Lymph % (Auto) 15.0, [place] % (Auto) 8.3, Eos % (Auto) 4.2, Baso % (Auto) 0.4, Immature Gran # (Auto) 0.1, Neut # 8.0 H, Lymph # 1.7, [place] # 0.9, Eos # 0.5, Baso # 0.1 ASSESSMENT: 1. RIGHT KNEE OSTEOARTHRITIS WITH TOTAL KNEE REPLACEMENT 2. DIABETES MELLITUS, TYPE 2 3. ATRIAL FIBRILLATION PLAN: 1. Glucophage 1000 mg b.i.d. 2. Toujeo 40 units at 5 p.m. daily 3. The patient has an appointment with Dr. Librado Jacobson today. 4. Will discharge the patient home with Home Health. EDUCATION: Discussed with the patient the need for Home Health for nursing assessment, physical and occupational therapy. The patient voices understanding and is in agreement. Plan and coordination of the patient's care discussed in the presence of Ground Instructor Basic and nurse. CONDITION: Stable SCRIBED BY: SERVANDO CANALES Rigging Supervisor scribed while in presence of service performed by Dr. FRENCH JACOBSON/ANTOINETTE CARRILLO APRN on 01/02/17 ([id number])
[2017-01-02] MEDS: LOTENSIN PO SCH (09:26)
[2017-01-02] MEDS: PRADAXA PO SCH (09:26)
[2017-01-02] MEDS: NORVASC PO SCH (09:27)
[2017-01-02] MEDS: TRIGLIDE PO SCH (09:27)
[2017-01-02] MEDS: VITAMIN D PO SCH (09:27)
[2017-01-02] MEDS: GLUCOPHAGE PO SCH (09:27)
[2017-01-02] MEDS: NAMENDA PO SCH (09:28)
[2017-01-02] MEDS: LANOXIN PO SCH (09:28)
[2017-01-02] MEDS: AMARYL PO SCH (09:28)
[2017-01-02] MEDS: MINERALS PO SCH (09:29)
[2017-01-02] MEDS: LEXAPRO PO SCH (09:29)
[2017-01-02] MEDS: [UNRECOGNIZED DRUG - OTHER] PO SCH (09:29)
[2017-01-02] MEDS: VITS A C E PO SCH (09:29)
[2017-01-02] MEDS: LUTEIN PO SCH (09:29)
[2017-01-02] MEDS: OXYCODONE PO PRN (12:59)
--- NOTE | 2017-01-02 14:19 | CM.DICTOOL ---
ADMISSION: 12/21/16 12:37 DISCHARGE: 01/02/17 DATE OF SERVICE: 01/02/17 FINAL DIAGNOSIS TOTAL RIGHT KNEE ARTHROPLASTY (DR. Mima JACOBSON, 12/18/16) POST OPERATIVE/SYMPTOMATIC ANEMIA, REQUIRING TRANSFUSIONS X2, 12/23/16 A-FIB BY HISTORY (NURSING HOME ANTICOAG) DM, TYPE 2 GERD DYSLIPIDEMIA HYPERTENSION EARLY ALZHEIMER'S TYPE DEMENTIA NEUROPATHY SEVERE CHRONIC LUNG DISEASE OBESITY (BMI 38.3) CARDIAC CATHETERIZATION BACK SURGERIES X2 HYSTERECTOMY TOTAL LEFT KNEE, 06/26/15 ([facility]) LAST VITALS Temp Pulse Resp BP Pulse Ox 97.9 F 84 16 115/71 94 L 01/02/17 05:12 01/02/17 09:28 01/02/17 05:12 01/02/17 05:12 01/02/17 05:12 ACTIVE MEDICATIONS Albuterol Sulfate (Proair Hfa) 2 puff IH Q6H PRN PRN Reason: Wheezing Amlodipine Besylate (Norvasc) 10 mg PO DAILY [facility] Last Admin: 01/02/17 09:27 Dose: 10 mg Benazepril HCl (Lotensin) 40 mg PO DAILY [facility] Last Admin: 01/02/17 09:26 Dose: 40 mg Chlordiazepoxide HCl (Librium) 10 mg PO BID PRN PRN Reason: Anxiety Last Admin: 12/31/16 00:47 Dose: 10 mg Cholecalciferol (Vitamin D) 2,000 unit PO DAILY [facility] Last Admin: 01/02/17 09:27 Dose: 2,000 unit Cyclosporine (Restasis) 1 ea OP BID Dabigatran (Pradaxa) 150 mg PO Q12HR [facility] Last Admin: 01/02/17 09:26 Dose: 150 mg Digoxin (Lanoxin) 125 mcg PO DAILY [facility] Last Admin: 01/02/17 09:28 Dose: 125 mcg Donepezil HCl (Aricept) 10 mg PO BEDTIME [facility] Last Admin: 01/01/17 20:30 Dose: 10 mg Escitalopram Oxalate (Lexapro) 10 mg PO DAILY [facility] Last Admin: 01/02/17 09:29 Dose: 10 mg Fenofibrate (Triglide) 54 mg PO DAILY [facility] Last Admin: 01/02/17 09:27 Dose: 54 mg Furosemide (Lasix Tab) 40 mg PO QDAC [facility] Last Admin: 01/02/17 05:38 Dose: 40 mg Gabapentin (Neurontin) 300 mg PO QDAC [facility] Last Admin: 01/02/17 05:39 Dose: 300 mg Glimepiride (Amaryl) 4 mg PO DAILYWM [facility] Last Admin: 01/02/17 09:28 Dose: 4 mg Lovastatin (Mevacor) 40 mg PO BEDTIME [facility] Last Admin: 01/01/17 20:30 Dose: 40 mg Memantine (Namenda) 10 mg PO BID [facility] Last Admin: 01/02/17 09:28 Dose: 10 mg Metformin HCl (Glucophage) 1,000 mg PO BIDWM [facility] (REDUCED DOSE FROM 2000MG AND 1000MG) Last Admin: 01/02/17 09:27 Dose: 1,000 mg Vits A,C,E/Lutein/Minerals [Vision Formula With Lutein Tab] 1 cap PO DAILY [facility] Last Admin: 01/02/17 09:29 Dose: 1 cap Insulin Glargine,Hum.Rec.Anlog [Toujeo Solostar] 40 units SQ 1700 [facility] ( REDUCED DOSE FROM 50 U) Last Admin: 01/01/17 17:49 Dose: Not Given Oxycodone HCl (Oxycodone) 5 mg PO Q4H PRN (PRESCRIBED BY DR. ANJELICA JACOBSON) PRN Reason: pain Last Admin: 01/01/17 16:34 Dose: 5 mg Polyethylene Glycol (Miralax) 17 gm PO DAILY PRN PRN Reason: CONSTIPATION Ranitidine HCl (Zantac) 300 mg PO BEDTIME [facility] Last Admin: 01/01/17 20:29 Dose: 300 mg ALLERGIES No Known Allergies Allergy (Verified 05/06/16 21:36) NEW PRESCRIPTIONS: PLEASE NOTE THE DECREASE IN YOUR TOUJEO TO 40 UNITS SUBCUT DAILY PLEASE NOTE THE DECREASE IN YOUR METFORMIN TO 1000 MG BY MOUTH TWICE DAILY WITH MEALS NEW PRESCRIPTIONS FROM DR. ANJELICA JACOBSON: OXYCODONE 5 MG, TAKE 1 TO 3 TABLETS BY MOUTH EVERY 3-4 HOURS NEEDED FOR PAIN NEUROTIN 300 MG, TAKE ONE CAPSULE BY MOUTH DAILY SMOKING: NONSMOKER DISEASE SPECIFIC EDUCATION: JOINT REPLACEMENT INCISION HALF-WAY MEDICATIONS AND CHANGES MADE NEW PRESCRIPTIONS FOLLOW UP LAB REVIEW: 01/02/17 04:30 01/02/17 04:30 01/02/17 04:30: Sodium 136, Potassium 4.2, Chloride 99, Carbon Dioxide 29, Anion Gap 12.2, BUN 29 H, Creatinine 1.21, Estimated GFR (MDRD) 43.00, BUN/ Creatinine Ratio 23.96, Glucose 115 D, Calcium 9.2, Total Bilirubin 0.34, AST 11 L, ALT 14, Alkaline Phosphatase 47 L, Total Protein 5.9, Albumin 2.8 L, Globulin 3.1, Albumin/Globulin Ratio 0.90 01/02/17 04:30: WBC 11.26 H, RBC 3.62 L, Hgb 10.5 L, Hct 32.0 L, MCV 88.4, MCH 29.0, MCHC 32.8, RDW Coeff of Monique 14.5, Plt Count 396, Immature Gran % (Auto) 0.9, Neut % (Auto) 71.2, Lymph % (Auto) 15.0, [place] % (Auto) 8.3, Eos % (Auto) 4.2, Baso % (Auto) 0.4, Immature Gran # (Auto) 0.1, Neut # 8.0 H, Lymph # 1.7, [place] # 0.9, Eos # 0.5, Baso # 0.1 PLAN: DISCHARGE HOME TODAY RETURN TO SEE DR. FRENCH JACOBSON IN ONE WEEK. PLEASE CALL TO SCHEDULE YOUR APPOINTMENT ([phone]) [facility], PT/OT WILL BE PROVIDED IN YOUR HOME. THEY WILL PHONE YOU TO SCHEDULE VISITS. ( ) FOLLOW UP APPOINTMENTS: DIRECTED KALYAN NICHOLE [address] [place] [address] RESUME YOUR HOME MEDICATIONS PER LIST PROVIDED BY THE NURSING STAFF PLEASE NOTE THE DECREASE IN YOUR TOUJEO TO 40 UNITS SUBCUT DAILY PLEASE NOTE THE DECREASE IN YOUR METFORMIN TO 1000 MG BY MOUTH TWICE DAILY WITH MEALS NEW PRESCRIPTIONS FROM DR. ANJELICA JACOBSON: OXYCODONE 5 MG, TAKE 1 TO 3 TABLETS BY MOUTH EVERY 3-4 HOURS NEEDED FOR PAIN NEUROTIN 300 MG, TAKE ONE CAPSULE BY MOUTH DAILY ACTIVITY: GET PLENTY OF REST AT HOME. GRADUALLY INCREASE YOUR ACTIVITY LEVEL ACCORDING TO YOUR TOLERATION FOLLOW PT/OT INSTRUCTIONS REGARDING REHABILITATION FOLLOW DR. ANJELICA JACOBSON'S INSTRUCTIONS REGARDING INCISION CARE DIET: CONSISTENT CARBS HEALTHY HEART SUMMARY: THE PATIENT IS ALERT AND ORIENTED X3. SHE CURRENTLY RESIDES AT HOME. HER SON AND SIGNIFICANT OTHER IS SUPPORTIVE OF HER NEEDS. SHE HAS A ROLLING WALKER, BEDSIDE COMMODE, ELEVATED COMMODE SEAT, SHOWER CHAIR AT HOME FOR USE THERE. SHE WILL HAVE [facility] NURSING SERVICES FOR GENERAL ASSESSMENT, PAIN CONTROL, MEDICATION COMPLIANCE, INCISION CARE AND PT/OT TO CONTINUE REHAB IN THE HOME ENVIRONMENT. SHE DESIRES TO RETURN TO HER HOME AT DISCHARGE. THE INCISION LINE IS WELL APPROXIMATED WITH DERMABOND AND STERI-STRIPS. THERE IS NO REDNESS OR EXCESSIVE WARMTH AT THE SITE. SWELLING HAS IMPROVED A GREAT DEAL SINCE ADMISSION AND ONLY A MINIMAL AMOUNT REMAINS. OTHERWISE THE PATIENT' S SKIN TURGOR IS INTACT AND WITHOUT DECUBITUS ULCERS. SHE IS AWARE AND AGREEABLE FOR DISCHARGE HOME TODAY. CURRENT CODE STATUS: FULL CODE JAMARI CARRILLO APRN FRENCH JACOBSON M.D.
--- NOTE | 2017-01-03 15:33 | PN ---
DATE OF SERVICE: 01/02/17 SUBJECTIVE: 76 year old white female hospitalized with right total knee replacement. The patient's condition has improved remarkably. Her incision has already healed. The patient is up and about without any help with the walker. REVIEW OF SYSTEMS: CONSTITUTIONAL: No night sweats. No fatigue, malaise, lethargy. No fever or chills. HEENT: Eyes: No visual changes. No eye pain. No eye discharge. ENT: No runny nose. No epistaxis. No sinus pain. No sore throat. No odynophagia. No congestion. RESPIRATORY: No cough, no congestion. No hemoptysis. No shortness of breath. CARDIOVASCULAR: No angina symptoms. No CHF symptoms. No atypical chest pain for CAD. No palpitations. No orthopnea. GASTROINTESTINAL: No abdominal pain. No nausea or vomiting. No diarrhea or constipation. No hematemesis. No hematochezia. GENITOURINARY: No urgency. No frequency. No dysuria. No hematuria. No obstructive symptoms. No discharge. No pain. No significant abnormal bleeding. MUSCULOSKELETAL: No musculoskeletal pain; no joint swelling. Mild soreness of right hip. NEUROLOGICAL: No headache. No neck pain. No syncope. No seizures. No dizziness. PSYCHIATRIC: Not anxious. No depression. No suicidal thoughts. No homicidal thoughts. SKIN: No rash. No lesions. No wounds. ENDOCRINE: No unexplained weight loss. No weight gain. HEMATOLOGIC/LYMPHATIC: No anemia. No purpura. No petechiae. No prolonged or excessive bleeding. No palpable lymph nodes. PHYSICAL EXAMINATION: GENERAL: The patient is oriented to time, place and person. VITAL SIGNS: Temperature 97.9, pulse 77, respiratory rate 16, blood pressure 115/71 and pulse ox 94%. HEENT: Head normocephalic, atraumatic. Eyes: Extraocular muscles are intact. Pupils are equal, round and reactive to light and accommodation. Ears: No lesions. Nose appeared normal. Throat: No exudate or erythema. NECK: Supple. No JVD, no carotid bruit. No lymphadenopathy or thyromegaly. LUNGS: Decreased breath sounds but clear to auscultation. Percussion note normal. Chest symmetrical. HEART: S1, S2, no S3. No murmurs. No cyanosis or clubbing. No ascites. Pulses: Dorsalis pedis and posterior tibial pulses +1 to +2 both sides. ABDOMEN: Soft. Nontender. Bowel sounds active. No CVA tenderness. No mass felt. EXTREMITIES: No edema. Full range of motion of all extremities, equal. NEUROLOGIC: No focal deficit. Cranial nerves II through XII are grossly intact. No headache, no double vision or headache. SKIN: Not dry. Intact. Turgor - normal. LYMPHATIC: No palpable lymph nodes/no lymphedema. MUSCULOSKELETAL: Normal joints with no swelling. Muscle tone is normal. ASSESSMENT: 1. Right knee replacement, the patient progressing very well. PLAN: 1. Followup with Dr. Eid who is the orthopedic surgery. She is to see Dr. Herron today 2. Discharge home 3. The patient is going to have Glucophage 1,000mg twice a day and the Toujeo to 40 because the patient had hypoglycemic spell. The patient's FBS this morning was 115. CONDITION: Stable The patient was seen and examined with the Nurse Practitioner. TIME SPENT: More than 30 minutes. Plan and coordination of the patient's care discussed in the presence of nurse. DEVAN
--- NOTE | 2017-01-10 11:30 | DS ---
DATE OF SERVICE: 01/02/17 FINAL DIAGNOSIS: 1. Total right knee arthroplasty (Dr. Mima Eid ) 2. Post operative/symptomatic anemia, requiring transfusions x2, 12/23/16 3. Atrial fibrillation by history (shelter anticoagulation) 4. Diabetes Mellitus type 2 5. GERD 6. Dyslipidemia 7. Hypertension 8. Early Alzheimer's type dementia 9. Neuropathy 10.Severe chronic lung disease 11.Obesity (BMI 38.3) 12.Cardiac catheterization 13.Back surgeries x2 14.Hysterectomy 15.Total left knee, 06/26/15 (Mima Eid) LAST VITALS: Temperature 97.9, pulse 84, respiratory failure, blood pressure 115/71 and pulse ox 94%. DISCHARGE INSTRUCTIONS: Discharge home today. Return to see Dr. Colby Eid in one week. [facility], PT/OT will be provided in your home. Resume home medications as per list provided by the nursing staff. MEDICATIONS AT DISCHARGE: Proair Hfa 2 two puff IH Q 6 hours PRN Norvasc 10mg PO daily Lotensin 40mg Po daily Librium 10mg PO twice a day PRN Vitamin D 2,000 unit PO daily Testasis one each OP twice a day Pradaxa 150mg PO Q 12 hours Lanoxin 125mcg PO daily Aricept 10mg PO bedtime Lexapro 10mg PO daily Triglide 54mg PO daily Lasix 40mg PO QDAC Neurontin 300mg PO QDAC Amaryl 4mg Po daily Mevacor 40mg PO bedtime Namenda 10mg PO twice a day Glucophage 1,000mg PO twice a day (reduced dose from 2,000mg and 1,000mg) Vision formula with lutein tablet one tablet PO daily Toujeo solostar 40 units SUBQT 1700 (reduced dose from 50 units ) Oxycodone 5mg Po Q 4 hours Miralax 17 gram PO daily PRN Zantac 300ng PO bedtime ALLERGIES: No known allergies NEW PRESCRIPTIONS: Please note the decrease in Toujeo to 40 units SUBCUT daily Please note the decrease in metformin to 1,000mg by mouth twice daily with meals Oxycodone 5mg take one to three tablets by mouth every 3-4 hours as needed for pain. Neurontin 300mg take one capsule by mouth daily DIET INSTRUCTIONS: Consistent Carbs Healthy heart ACTIVITY: Get plenty of rest at home. Gradually increase activity level according to your toleration. SMOKING: Nonsmoker DISEASE SPECIFIC EDUCATION: Joint replacement Incision skilled nursing medication and changes made New prescription Followup HOSPITAL COURSE: This is a 76 year old female who was transferred from [facility] after right total knee replacement by Dr. Librado Eid. She received two units of blood after admission for postop anemia with hgb down to 8 since then her hgb has remained stable around 10.2 to 10.5. Today on the day of discharge is 10.5 with hct 32, WBC is 11.2 and plt count 396. She has done remarkably well since being admitted. She has been doing physical therapy here at the hospital in the swing bed. She is going to go home and have Home Health continue her physical therapy while there. She did a home check yesterday and stated that she was ready. She has been up and about eating well. She has continued to lose weight while she was here she is eating better and she has already started losing weight prior to her surgery. Subsequently her sugars have been better so we decreased her Glucophage to 1,000mg twice a day as well as her Toujeo to 40 units daily. The patient has been on an ADA diet. Again her labs have remained stable and all of her home medications have continued. She is on Pradaxa as a maintenance medication due to a history of atrial fibrillation. She was on routine telemetry which showed persistent atrial fibrillation which is not a new thing for her. Physical therapy reports that she is doing well and she has been up and about on her own with the use of a rolling walker. She is able to use the restroom on her own. Her vital signs have all been stable. She will discharged home with the same medications again with the decrease in Glucophage and Toujeo and we will followup with her in our office. She saw Dr. Librado Eid today prior to discharge and he stated that he was pleased with her improvement. Her incision on her right knee is clean and dry with no signs or symptoms of infection and there is no drainage and steri strips are intake. There is mild swelling or the right knee consistent with post operation. Vital signs today at discharge; Temperature 97.9, heart rate 77, respiratory 16, blood pressure 115/71 and pulse ox 94%. She is discharged home in stable condition and will followup with us next week in the office. TIME SPENT: More than 60 minutes. DEVAN
== END 2017-01-02 16:12 | disposition home or self-care (01) | DRG 560 ==
LOC: MEDSURG B 12:37
PROVIDERS: ADMIT Internal Medicine; ATTEND Internal Medicine
PROC: 30233N1 Transfusion of Nonautologous Red Blood Cells into Peripheral Vein, Percutaneous Approach (ICD-10-PCS; principal; 2016-12-23)
PROC: 30233N1 Transfusion of Nonautologous Red Blood Cells into Peripheral Vein, Percutaneous Approach (ICD-10-PCS; 2016-12-23)
DX: Z47.1 Aftercare following joint replacement surgery (principal); Z96.651 Presence of right artificial knee joint; D62 Acute posthemorrhagic anemia; I48.91 Unspecified atrial fibrillation; E11.9 Type 2 diabetes mellitus without complications; J44.9 Chronic obstructive pulmonary disease, unspecified; R09.02 Hypoxemia; K21.9 Gastro-esophageal reflux disease without esophagitis; E78.5 Hyperlipidemia, unspecified; I10 Essential (primary) hypertension; G30.0 Alzheimer's disease with early onset; F02.80 Dementia in other diseases classified elsewhere, unspecified severity, without behavioral disturbance, psychotic disturbance, mood disturbance, and anxiety; G62.9 Polyneuropathy, unspecified; E66.9 Obesity, unspecified; S89.91XA Unspecified injury of right lower leg, initial encounter; X50.1XXA Overexertion from prolonged static or awkward postures, initial encounter; Z98.61 Coronary angioplasty status; Z96.652 Presence of left artificial knee joint; Z68.38 Body mass index [BMI] 38.0-38.9, adult; Z79.01 Long term (current) use of anticoagulants; Z79.84 Long term (current) use of oral hypoglycemic drugs; Z79.4 Long term (current) use of insulin
CPT/HCPCS: 36415; 36430; 80053; 82962; 85014; 85018; 85025; 86850; 86900; 86922; 87081; 93005; 93010; 94640; 97802

== ENCOUNTER 2017-06-23 15:40 | Observation (INO) ==
[2017-06-23 16:13] VITALS: BMI 32.5
[2017-06-23] MEDS ORDERED: PROAIR HFA IH PRN (16:33)
[2017-06-23] MEDS ORDERED: MIRALAX PO PRN (16:34)
[2017-06-23] MEDS ORDERED: DECADRON 4 MG/ML SDV 10 MG in SODIUM CHLORIDE 50 ML IV STA (16:36)
[2017-06-23] MEDS ORDERED: ZOFRAN 4 MG/2 ML IVP STA (16:37)
[2017-06-23] MEDS ORDERED: ZOFRAN 4 MG/2 ML IVP PRN (16:37)
[2017-06-23] MEDS ORDERED: MEVACOR PO SCH (17:00)
[2017-06-23] MEDS ORDERED: NON-FORMULARY MEDICATION (Lovastatin [Lovastatin] 40 MG) PO SCH (17:00)
[2017-06-23] MEDS ORDERED: DECADRON 4 MG/ML SDV IVP STA (17:08)
[2017-06-23] MEDS ORDERED: METFORMIN HCL 500 MG PO SCH (17:30)
[2017-06-23] MEDS: GLUCOPHAGE PO SCH (17:53)
[2017-06-23] MEDS: PROTONIX PO SCH (17:53)
[2017-06-23] MEDS: DEXTROSE 5%-1/2NS IV SOLUTION 1,000 ML IV SCH (17:55)
[2017-06-23] MEDS ORDERED: INSULIN GLARGINE HUM REC ANLOG 40 UNIT SQ SCH (18:00)
--- NOTE | 2017-06-23 18:19 | DI ---
Exam: Three x-rays of the chest. Comparison: 12/22/2016. Reason for exam: Short of breath. FINDINGS: No pneumothorax, pleural effusion, or focal consolidation. The cardiac silhouette is not enlarged. The imaged osseous structures appear grossly unremarkable without acute fracture. Similar appearing operative changes are seen in the lower thoracic/upper lumbar spine. Impression: No acute cardiopulmonary process.
[2017-06-23] MEDS: PRADAXA PO SCH (20:19)
[2017-06-23] MEDS: NAMENDA PO SCH (20:19)
[2017-06-23] MEDS ORDERED: NON-FORMULARY MEDICATION (Dabigatran Etexilate Mesylate [Pradaxa] 150 MG) PO SCH (21:00)
[2017-06-24] MEDS: DEXTROSE 5%-1/2NS IV SOLUTION 1,000 ML IV SCH (05:31)
[2017-06-24] MEDS: PROTONIX PO SCH (05:31)
[2017-06-24] MEDS ORDERED: ZANTAC PO SCH (06:30)
[2017-06-24] MEDS ORDERED: NON-FORMULARY MEDICATION (Ranitidine Hcl [Ranitidine Hcl] 300 MG) PO SCH (06:30)
[2017-06-24] MEDS ORDERED: NEURONTIN PO SCH (06:30)
[2017-06-24] MEDS ORDERED: LASIX TAB PO SCH (06:30)
[2017-06-24] MEDS ORDERED: NON-FORMULARY MEDICATION (Glimepiride [Amaryl] 4 MG) PO SCH (08:00)
[2017-06-24] MEDS ORDERED: AMARYL PO SCH (08:00)
[2017-06-24] MEDS ORDERED: LEXAPRO PO SCH (09:00)
[2017-06-24] MEDS ORDERED: CHOLECALCIFEROL 2000 UNIT PO SCH (09:00)
[2017-06-24] MEDS ORDERED: NON-FORMULARY MEDICATION (Amlodipine Besylate [Norvasc] 10 MG) PO SCH (09:00)
[2017-06-24] MEDS ORDERED: ARICEPT PO SCH (09:00)
[2017-06-24] MEDS ORDERED: VITAMIN D PO SCH (09:00)
[2017-06-24] MEDS ORDERED: LOTENSIN PO SCH (09:00)
[2017-06-24] MEDS ORDERED: TRIGLIDE PO SCH (09:00)
[2017-06-24] MEDS ORDERED: LANOXIN PO SCH (09:00)
[2017-06-24] MEDS: GLUCOPHAGE PO SCH (09:44)
[2017-06-24] MEDS: NAMENDA PO SCH (09:46)
[2017-06-24] MEDS: PRADAXA PO SCH (09:47)
[2017-06-24] MEDS: HUMULIN R SUBCUT PRN ×2 (09:57→12:52)
--- NOTE | 2017-06-24 09:58 | PCM.PROG ---
Attending Provider: ATTENDING PROVIDER: Dr. FRENCH JACOBSON This patient is seen with Antoinette Martínez, Nurse Practitioner. DATE OF SERVICE: 06/24/17 SUBJECTIVE: This 76 year old WHITE/ F was hospitalized 06/23/17. The patient is lying in bed, alert. She states she feels better. She thinks she can go home. No vomiting through the night. She is agreeable to eat breakfast, be up and about. REVIEW OF SYSTEMS: CONSTITUTIONAL: Generalized weakness and fatigue. No night sweats. No malaise, lethargy. No fever or chills. HEENT: Eyes: No visual changes. No eye pain. No eye discharge. ENT: No runny nose. No epistaxis. No sinus pain. No odynophagia. No congestion. RESPIRATORY: No cough, no congestion. No hemoptysis. No shortness of breath. CARDIOVASCULAR: No angina symptoms. No CHF symptoms. No atypical chest pain for CAD. No palpitations. No orthopnea.. GASTROINTESTINAL: No abdominal pain. No nausea or vomiting. No diarrhea or constipation. No hematemesis. No hematochezia. GENITOURINARY: No urgency. No frequency. No dysuria. No hematuria. No obstructive symptoms. No discharge. No pain. No significant abnormal bleeding. MUSCULOSKELETAL: No musculoskeletal pain; no joint swelling. NEUROLOGICAL: Awake, alert, oriented to time, place and person. No headache. No neck pain. No syncope. No seizures. No dizziness. PSYCHIATRIC: Not anxious. No depression. No suicidal thoughts. No homicidal thoughts. SKIN: No rash. No lesions. No wounds. ENDOCRINE: No unexplained weight loss. No weight gain. HEMATOLOGIC/LYMPHATIC: No anemia. No purpura. No petechiae. No prolonged or excessive bleeding. No palpable lymph nodes. PHYSICAL EXAMINATION: GENERAL: The patient is awake, alert and oriented, lying/sitting in bed in no distress. VITAL SIGNS: Temperature 97.7 F, Pulse 78, Respiratory Rate 18, BP 129/78, Pulse Ox 94% HEENT: Head normocephalic, atraumatic. Eyes: Extraocular muscles are intact. Pupils are equal, round and reactive to light and accommodation. Ears: No lesions. Nose appeared normal. Throat: No exudate or erythema. NECK: Supple. No JVD, no carotid bruit. No lymphadenopathy or thyromegaly. LUNGS: Diminished breath sounds. Clear to auscultation. Percussion note normal. Chest symmetrical. HEART: Irregular heartbeath. S1, S2, no S3. No murmurs. No cyanosis or clubbing. No ascites. Pulses: Dorsalis pedis and posterior tibial pulses +1 to +2 both sides. ABDOMEN: Soft. Non-tender. Bowel sounds active. No CVA tenderness. No mass felt. EXTREMITIES: No edema. Full range of motion of all extremities, equal. NEUROLOGIC: No focal deficit. Cranial nerves II through XII are grossly intact. No headache, no double vision or headache. SKIN: Not dry. Intact. Turgor-normal. LYMPHATIC: No palpable lymph nodes/no lymphedema. MUSCULOSKELETAL: Normal joints with no swelling. Muscle tone is normal. LAB REVIEW: 06/24/17 04:45 06/24/17 04:45 06/24/17 04:45: Sodium 133 L, Potassium 4.6, Chloride 98, Carbon Dioxide 24, Anion Gap 15.6, BUN 24 H, Creatinine 1.14, Estimated GFR (MDRD) 46.00, BUN/ Creatinine Ratio 21.05, Glucose 413 H D, Calcium 9.1, Total Bilirubin 0.3, AST 9 L, ALT 14, Alkaline Phosphatase 56, Total Protein 6.3, Albumin 3.0 L, Globulin 3.3, Albumin/Globulin Ratio 0.91 06/24/17 04:45: WBC 13.47 H, RBC 4.41, Hgb 11.7 L, Hct 36.4 L, MCV 82.5, MCH 26.5 L, MCHC 32.1, RDW Coeff of Monique 15.0 H, Plt Count 241, Immature Gran % (Auto ) 0.6, Neut % (Auto) 89.7, Lymph % (Auto) 6.8 L, [place] % (Auto) 2.7, Eos % (Auto ) 0.0, Baso % (Auto) 0.2, Immature Gran # (Auto) 0.1, Neut # (Auto) 12.1 H, Lymph # (Auto) 0.9, [place] # (Auto) 0.4, Eos # (Auto) 0.0, Baso # (Auto) 0.0 06/23/17 17:05: Puncture Site Rr, O2 Saturation 95.0, ABG pH 7.468 H, ABG pCO2 39.0, ABG pO2 71.0 L, ABG HCO3 28.2 H, ABG Total CO2 29 H, ABG Base Excess 5 H, Adam Test +, FiO2 % 21.0 06/23/17 16:57: Sodium 138, Potassium 3.7, Chloride 102, Carbon Dioxide 25, Anion Gap 14.7, BUN 19 H, Creatinine 0.97, Estimated GFR (MDRD) 56.00, BUN/ Creatinine Ratio 19.58, Glucose 211 H, Calcium 9.3, Total Bilirubin 0.4, AST 11 L, ALT 15, Alkaline Phosphatase 61, Total Protein 6.8, Albumin 3.3 L, Globulin 3.5, Albumin/Globulin Ratio 0.94 06/23/17 16:57: WBC 12.41 H, RBC 4.50, Hgb 12.2, Hct 36.9 L, MCV 82.0, MCH 27.1 , MCHC 33.1, RDW Coeff of Monique 15.1 H, Plt Count 251, Immature Gran % (Auto) 0.5 , Neut % (Auto) 79.3, Lymph % (Auto) 13.4, [place] % (Auto) 5.9, Eos % (Auto) 0.6, Baso % (Auto) 0.3, Immature Gran # (Auto) 0.1, Neut # (Auto) 9.9 H, Lymph # ( Auto) 1.7, [place] # (Auto) 0.7, Eos # (Auto) 0.1, Baso # (Auto) 0.0 06/23/17 16:50: Influ A Molecular Assay Negative by naat, Influ B Molecular Assay Negative by naat ASSESSMENT: 1. ACUTE GASTROENTERITIS 2. DEHYDRATION 3. WEAKNESS PLAN: 1. UA 2. Digoxin level 3. Encouraged to be up and about Plan and coordination of the patient's care discussed in the presence of Paper Wrapping Machine Operator and nurse. CONDITION: Stable SCRIBED BY: Nasreen JONESist scribed while in presence of service performed by Dr. Jacobson/Antoinette Martínez APRN on 06/24/17 ([id number])
[2017-06-24 11:31] VITALS: BP 125/75; TEMP 98.3
--- NOTE | 2017-07-01 08:15 | PN ---
06/23/17: Level 5 Observation 06/24/17: D as in discharge MTDD
--- NOTE | 2017-07-01 09:47 | PN ---
DATE OF SERVICE: 06/24/17 SUBJECTIVE: The patient was treated for acute gastroenteritis and dehydration. The patient' s condition has improved. Blood sugar is high because of the steroid injection. She wants to go home. She is up and about. She has no vomiting, no nausea. Her appetite has improved remarkably. PLAN: The patient was discharged home. She was seen and examined with nurse practitioner. CONDITION: Stable. TIME SPENT: More than 30 minutes. Plan and coordination of the patient's care discussed in the presence of nurse. DEVAN
--- NOTE | 2017-07-01 09:48 | PN ---
CODING FOR BILLING - OBSERVATION 06/23/17 LEVEL 5 06/24/17 DISCHARGE - OBSERVATION MTDD
--- NOTE | 2017-07-25 14:07 | HP ---
DATE OF SERVICE: 06/23/17 HISTORY OF PRESENT ILLNESS: 76-year-old female that all of a sudden started with weakness, nausea and feels exhausted and chilled. She vomited 6 to 7 times. Sugar checked at home was 234. Sugars have been up times one week. PAST MEDICAL HISTORY: Diabetes mellitus Type 2 Atrial fibrillation Osteoarthritis CVA Hypertension Dementia COPD Anemia MENSTRUAL HISTORY: Mammogram 73 years of age. PAST SURGICAL HISTORY: Back surgery Left TKR Right TKR REVIEW OF SYSTEMS: CONSTITUTIONAL: Positive for fever and fatigue. HEENT: No sinus drainage, no sore throat. RESPIRATORY: No cough, no congestion. CARDIOVASCULAR: Shortness of breath. No atypical chest pain for coronary artery disease. No angina, CHF symptoms, or palpitations. GASTROINTESTINAL: No melena or abdominal pain. No GERD. GENITOURINARY: No hematuria, no polyuria. HEEL BRUSHER: No blackout, no dizziness, no headache, no double vision. MUSCULOSKELETAL: No osteoarthritis pain, no joint swelling. ENDOCRINE: Weight loss of 9 lbs. SKIN: Warm and dry, no rash. PSYCHIATRIC: Not anxious, no depression, no suicidal thoughts, no homicidal thoughts. SOCIAL HISTORY: Single, two children. No illicit drug use. Nonsmoker. No alcohol use. FAMILY HISTORY: Father at age 80; mother at age 63. Two brothers. Two sisters. MEDICATIONS: Oxycodone 5 mg one p.o. every four hours as needed Glimepiride 4 mg one p.o. daily Ultram 50 mg p.o. every 12 hours as needed Ventolin HFA 90 mcg two puffs every 4 to 6 hours as needed Toujeo Subcutaneous one time per day 50 units Donepezil 10 mg one p.o. daily in the evening Memantine 10 mg one p.o. two times per day Metformin 1000 mg two tabs in a.m. and one tab in p.m. p.o. two times per day Metoprolol 25 mg tablet one tablet p.o. two times per day Pradaxa 150 mg p.o. two times per day Digoxin 125 mcg one p.o. daily Amlodipine 10 mg one p.o. once daily Benazepril 40 mg one p.o. once daily Fenofibrate 54 mg one p.o. once daily Lovastatin 40 mg one p.o. once daily with the evening meal Ranitidine one tablet 300 mg p.o. once daily at bedtime Furosemide 40 mg one p.o. daily ALLERGIES: NKDA PHYSICAL EXAMINATION: V/S: Pulse 90, BP 118/74, temperature 98.2, 02 sat 93%, weight 228 lbs, height 5'7". GENERAL APPEARANCE: Oriented times three. HEENT: Normal. NECK: No JVP, no bruits. RESPIRATORY: Decreased breath sounds. Lungs are clear. CARDIOVASCULAR: S1, S2, no S3, no murmurs. No cyanosis, clubbing. No ascites. GI/ABDOMEN: No tenderness. Bowel sounds are active. EXTREMITIES: No edema, pulses +1, equal. HEEL BRUSHER: Deep tendon reflexes, sensory, motor and gait all normal. RECTAL/PELVIC: Colonoscopy Dr. Majano 2005. Pelvic: [place]. ASSESSMENT: 1. ACUTE GASTROENTERITIS/DEHYDRATION 2. BACK SURGERY 3. RIGHT TOTAL KNEE REPLACEMENT- DR. Mima JACOBSON 01/03 4. DIABETES MELLITUS, TYPE 2 5. LEFT TOTAL KNEE REPLACEMENT 6. ATRIAL FIBRILLATION 7. OSTEOARTHRITIS 8. CVA 9. HYPERTENSION 10. DEMENTIA 11. COPD 12. ANEMIA PLAN: 1. Admit 2. Diet as tolerated/regular - avoid milk products 3. 1000 cc D5 1/2 NS 12 hourly 4. Chest x-ray and EKG today 5. 1 cc Decadron IM 6. Zofran 4 mg IV now and q.6hourly for nausea/vomiting p.r.n. 7. ABG today 8. Rapid Flu A & B 9. Continue all home medications except Norvasc 10. D/C Amlodipine 11. Protonix 40 mg b.i.d. 12. CBC and CMP today and daily a.m. 13. Telemetry times 24 hours TIME SPENT: More than 70 minutes. MTDD
--- NOTE | 2017-08-01 09:56 | SSS ---
DATE OF SERVICE: 06/24/17 REASON FOR OBSERVATION: Gastroenteritis and dehydration. Direct admission. HISTORY OF PRESENT ILLNESS: The patient was seen in the office on the day of admission. Chief complaint of nausea, vomiting, diarrhea and weakness. REVIEW OF SYSTEMS: CONSTITUTIONAL: No night sweats. Fatigue. No fever or chills. HEENT: Eyes: No visual changes. No eye pain. No eye discharge. ENT: No runny nose. No epistaxis. No sinus pain. No sore throat. No odynophagia. No ear pain. No congestion. RESPIRATORY: No cough, no congestion. No hemoptysis. No shortness of breath. CARDIOVASCULAR: No angina symptoms. No CHF symptoms. No atypical chest pain for CAD. No palpitations. No orthopnea. GASTROINTESTINAL: No abdominal pain. No nausea or vomiting. No diarrhea or constipation. No hematemesis. No hematochezia. GENITOURINARY: No dysuria. No hematuria. No obstructive symptoms. No discharge. No pain. No significant abnormal bleeding. MUSCULOSKELETAL: No musculoskeletal pain. No joint swelling. NEUROLOGICAL: Awake, alert, oriented to time, place and person. No headache. No neck pain. No syncope. No seizures. No dizziness. PSYCHIATRIC: Not anxious. No depression. No suicidal thoughts. No homicidal thoughts. SKIN: No rash. No lesions. No wounds. ENDOCRINE: No unexplained weight loss. No weight gain. HEMATOLOGIC/LYMPHATIC: No anemia. No purpura. No petechiae. No prolonged or excessive bleeding. No palpable lymph nodes. PAST HISTORY: Atrial fibrillation (anticoagulation) Diabetes mellitus type 2 GERD Dyslipidemia Hypertension Early Alzheimer's type Dementia Neuropathy Severe chronic lung disease Obesity (BMI 32.5) Back surgeries x2 Hysterectomy Total left and right knee arthroplasty 2016 and 2017 (Mima Eid) PERSONAL/FAMILY HISTORY/SOCIAL HISTORY: . Has significant other and family who are supportive. Independent with ADL's. Former smoker. No alcohol. Has rolling walker, bedside commode, elevated commode seat, shower chair, Glucometer, testing supplies. No home health or Homemaking services. PHYSICAL EXAMINATION: GENERAL: The patient 76 year old female. Height 5'6, weight 201. VITAL SIGNS: Blood pressure 124/74 left and 133/82 right, heart rate 89, pulse 16, temperature 97.9 and pulse ox 97% room air. HEENT: Head normocephalic, atraumatic. Eyes: Extraocular muscles are intact. Pupils are equal, round and reactive to light and accommodation. Ears: No lesions. Nose appeared normal. Throat: No exudate or erythema. NECK: Supple. No JVD, no carotid bruit. No lymphadenopathy or thyromegaly. LUNGS: Clear to auscultation. Percussion note normal. Chest symmetrical. HEART: S1, S2, no S3. irregular-Atrial fibrillation. No murmurs. No cyanosis or clubbing. No ascites. Pulses: Dorsalis pedis and posterior tibial pulses + 1 to +2 both sides. ABDOMEN: Soft. Nontender. Bowel sounds active. No CVA tenderness. No mass felt. EXTREMITIES: No edema. Full range of motion of all extremities, equal. NEUROLOGIC: No focal deficit. Cranial nerves II through XII are grossly intact. No headache, no double vision or headache. SKIN: Not dry. Intact. Turgor - normal. LYMPHATIC: No palpable lymph nodes/no lymphedema. MUSCULOSKELETAL: Normal joints with no swelling. Muscle tone is normal. Old/present records reviewed: Yes Office records reviewed: Yes. EDUCATION CARRIED OUT ABOUT: Gastroenteritis, dehydration, Home medications and followup. ALLERGIES: No known Allergies MEDICATIONS: ProAir Lotensin Vitamin D Pradaxa Lanoxin Aricept Lexapro Triglide Lasix Neurontin Amaryl Pravacor Glucophage Toujeo Lovastatin Namenda Miralax Zantac LABS/EKG'S/X-RAY/ECHO/ABG: WBC 12.41, Hgb 12.2, hct 36.9, plt count 251, Sodium 138, chloride 102, BUN 19, Potassium 3.7, Bicarb 25, Creatinine 0.97 and Glucose 211. GFR 12. U/A 2+ glucose. Digoxin 0.52. Influenza A and B negative. ABG's on room air pH 7.468, pCO2 39, pO2 71, HCO3 28.2, TCo2 29. PROGRESS NOTES: See transcribed progress notes for 06/24/17. Case Discussed with Family: Yes DIAGNOSES: 1. Acute gastroenteritis 2. Dehydration 3. Generalized acute onset weakness. RECOMMENDATIONS/PLAN: 1. Discharge home 2. Resume home medication 3. Activity as tolerated 4. Consistent carb diet 5. Return to the office 06/30/17 at 1:15pm. TIME SPENT: More than 70 minutes. [facility]
== END 2017-06-24 13:40 | disposition home or self-care (01) ==
LOC: INTOOBSV 15:40 → MEDSURG B 15:40
PROVIDERS: ADMIT Internal Medicine; ATTEND Internal Medicine
DX: K52.9 Noninfective gastroenteritis and colitis, unspecified (principal); R53.1 Weakness; I48.91 Unspecified atrial fibrillation; E11.9 Type 2 diabetes mellitus without complications; Z79.01 Long term (current) use of anticoagulants; Z79.84 Long term (current) use of oral hypoglycemic drugs
CPT/HCPCS: 36415; 80053; 80162; 81001; 82803; 82962; 85025; 87502; 93005; 93010; 96361; 96374; 96375

== ENCOUNTER 2017-07-22 12:47 | Inpatient (IN) ==
[2017-07-22] MEDS ORDERED: MORPHINE 4 MG/ML VIAL IVP PRN (13:25)
[2017-07-22] MEDS ORDERED: TYLENOL PO PRN (13:25)
[2017-07-22] MEDS ORDERED: NITROSTAT SL PRN (13:25)
[2017-07-22] MEDS ORDERED: ATROPINE SULFATE PFS IVP PRN (13:25)
[2017-07-22] MEDS ORDERED: PHENERGAN WITH CODEINE 6.25/10 MG/5 ML PO PRN (13:35)
--- NOTE | 2017-07-22 14:29 | DI ---
EXAM: CHEST FRONTAL AND LATERAL VIEWS HISTORY: Cough, shortness of breath. COMPARISON: 06/23/2017 FINDINGS: Prominent heart size is stable. No definite consolidated pneumonia. There are scattered c alcifications suggesting old granulomatous disease. No pleural fluid or vascular congestion. IMPRESSION: Prominent heart size. No acute cardiopulmonary process definitely seen.
[2017-07-22 14:37] VITALS: BMI 36.8
[2017-07-22] MEDS ORDERED: PROAIR HFA IH PRN (14:46)
[2017-07-22] MEDS: ZITHROMAX PO SCH (15:10)
[2017-07-22] MEDS: ROCEPHIN 1 GM in SODIUM CHLORIDE 50 ML IV SCH (15:11)
[2017-07-22] MEDS: SOLU-CORTEF 250 MG IVP SCH ×2 (15:11→22:03)
[2017-07-22] MEDS ORDERED: NON-FORMULARY MEDICATION (Lovastatin [Lovastatin] 40 MG) PO SCH (17:00)
[2017-07-22] MEDS: GLUCOPHAGE PO SCH (17:01)
[2017-07-22] MEDS: MEVACOR PO SCH (17:01)
[2017-07-22] MEDS: HUMULIN R SUBCUT PRN ×2 (17:09→21:06)
[2017-07-22] MEDS: PULMICORT 0.5 MG/2 ML NEB SCH (17:25)
[2017-07-22] MEDS: XOPENEX 1.25 MG NEB SCH ×2 (17:26→22:20)
[2017-07-22] MEDS ORDERED: NON-FORMULARY MEDICATION (Metformin Hcl [Glucophage] 1,000 MG) PO SCH (17:30)
[2017-07-22] MEDS ORDERED: INSULIN GLARGINE HUM REC ANLOG 45 UNIT SQ SCH (18:00)
[2017-07-22] MEDS ORDERED: NON-FORMULARY MEDICATION (Ranitidine Hcl [Ranitidine Hcl] 300 MG) PO SCH (21:00)
[2017-07-22] MEDS: NAMENDA PO SCH (21:06)
[2017-07-22] MEDS: ZANTAC PO SCH (21:06)
[2017-07-23] MEDS: PULMICORT 0.5 MG/2 ML NEB SCH ×2 (04:43→18:08)
[2017-07-23] MEDS: XOPENEX 1.25 MG NEB SCH ×4 (04:43→23:35)
[2017-07-23] MEDS: SOLU-CORTEF 250 MG IVP SCH ×3 (05:40→20:33)
[2017-07-23] MEDS: PROTONIX PO SCH (05:41)
[2017-07-23] MEDS: NEURONTIN PO SCH (05:41)
[2017-07-23] MEDS: LASIX TAB PO SCH (05:41)
[2017-07-23] MEDS: HUMULIN R SUBCUT PRN ×4 (05:50→20:33)
[2017-07-23] MEDS ORDERED: NON-FORMULARY MEDICATION (Glimepiride [Amaryl] 4 MG) PO SCH (08:00)
[2017-07-23] MEDS ORDERED: AMARYL PO SCH (08:00)
[2017-07-23] MEDS ORDERED: TESSALON PERLES PO PRN (08:21)
[2017-07-23] MEDS ORDERED: INSULIN GLARGINE HUM REC ANLOG 55 UNIT SUBCUT SCH (08:21)
[2017-07-23] MEDS ORDERED: NON-FORMULARY MEDICATION (Amlodipine Besylate [Norvasc] 10 MG) PO SCH (09:00)
[2017-07-23] MEDS: ARICEPT PO SCH (09:11)
[2017-07-23] MEDS: ASPIRIN EC PO SCH (09:12)
[2017-07-23] MEDS: GLUCOPHAGE PO SCH ×2 (09:13→19:11)
[2017-07-23] MEDS: LANOXIN PO SCH (09:13)
[2017-07-23] MEDS: LOTENSIN PO SCH (09:14)
[2017-07-23] MEDS: LEXAPRO PO SCH (09:14)
[2017-07-23] MEDS: MEVACOR PO SCH (09:15)
[2017-07-23] MEDS: NAMENDA PO SCH ×2 (09:15→20:34)
[2017-07-23] MEDS: TRIGLIDE PO SCH (09:15)
[2017-07-23] MEDS: NORVASC PO SCH (09:16)
[2017-07-23] MEDS: ROCEPHIN 1 GM in SODIUM CHLORIDE 50 ML IV SCH (09:16)
--- NOTE | 2017-07-23 12:31 | HP ---
DATE OF SERVICE: 07/22/17 REASON FOR HOSPITALIZATION/HISTORY OF PRESENT ILLNESS: Cough/congestion/ shortness of breath x 7 days. Wheezing and appetite=not good. Coughing at night. Shortness of breath with exertion, no symptoms of Congestive heart failure and coronary artery disease. PAST MEDICAL HISTORY: Diabetes Mellitus type 2 Atrial fibrillation Osteoarthritis CVA Hypertension Dementia COPD Anemia PAST SURGICAL HISTORY: Back surgery Left total knee replacement Right total knee replacement REVIEW OF SYSTEMS: CONSTITUTIONAL: No fever, Fatigue. HEENT: Sinus drainage, no sore throat. RESPIRATORY: Cough yellowish sputum, no congestion. CARDIOVASCULAR: No atypical chest pain for coronary artery disease. No angina , CHF symptoms, palpitations. Shortness of breath mild with exertion. GASTROINTESTINAL: No melena or abdominal pain. No GERD. GENITOURINARY: No hematuria, no prostatism, no polyuria. PACK PULLER: No blackout, Dizziness, no headache, no double vision. MUSCULOSKELETAL: Osteoarthritis pain, no joint swelling. ENDOCRINE: No weight loss, no weight gain. SKIN: Not dry, no rash. PSYCHIATRIC: Not anxious, no depression, no suicidal thoughts, no homicidal thoughts. SOCIAL HISTORY: Marital Status: Single. Alcohol Usage: No. Tobacco Usage: No. FAMILY HISTORY: Father age 80 Mother age 63 Brother 2 Sister 2 MEDICATIONS: Pradaxa 150mg PO two times per day Oxycodone 5mg PO every 4 hours as needed Glimepiride 4mg Po daily Ultram 50mg two tablet PO every 12 hours as needed Ventolin 90mcg/actuation inhale 2 puffs by inhalation every 4-6 hours as needed Toujeo Solostar 300unit inject by SUBCUT route one time per day Donepezil 10mg PO one daily in the evening Memantine 10mg PO two times per day Metformin 1,000mg take two tablet in AM and one tablet in PM PO two times per day Metoprolol 25mg one tablet PO two times per day Digoxin 125mg PO daily Amlodipine 10mg PO daily Benazepril 40mg PO daily Fenofibrate 54mg PO daily Lovastatin 40mg PO daily with evening meal Ranitidine 300mg PO daily with evening meal Furosemide 40mg Po daily Nitroglycerin 0.4mg sublingual route at the 1st sign of attack, may repeat every 5 minutes until relief, if pain persists after 3 tablets in 15 minutes prompt medical attention is recommended PRN Vitamin D 1000mg Take one tablet PO one time per day. ALLERGIES: No known drug allergies PHYSICAL EXAMINATION: V/S: Pulse 82, blood pressure 130/74, temperature 98.8 and pulse ox 89%. GENERAL APPEARANCE: Oriented times three. HEENT: Normal. Skin: Dry. NECK: No JVP, no bruits. RESPIRATORY: Decreased breath sounds with mild wheeze. CARDIOVASCULAR: S1, S2, no S3, no murmurs. No cyanosis, clubbing. No ascites. GI/ABDOMEN: No tenderness. Bowel sounds are active. EXTREMITIES: edema, pulses +1, equal. PACK PULLER: Deep tendon reflexes, sensory, motor and gait all normal. RECTAL: Dr. Majano 2005/PELVIC: Win[place] Advised yearly. LABS: ABg on room air pO2 65, pCO2 45, pH 7.44 with 93 % saturation. Chest x-ray showed prominent heart size, scattered calcifications suggesting old granulomatous disease. Potassium 4, creatinine 1, BUN 22, glucose 304, troponin and CK negative. Hgb 12, hct 37, WBC 9,600 with normal differential, BNP 195 which is borderline high. ASSESSMENT: 1. Acute bronchitis/Acute respiratory failure/Pleuritic pain 2. Back surgery, Dr. Bernal 2014 3. Right total knee replacement Dr. Ben Eid 01/03 4. Diabetes mellitus 2 5. Left total knee replacement 6. Atrial fibrillation 7. Osteoarthritis 8. Cerebrovascular accident 9. Hypertension 10.Dementia 11.COPD 12.Anemia 13.Heart cath 10/03 Dr. Knowles 14.B12 Deficiency PLAN: 1. Admit 2. Routine telemetry orders 3. Continue all home medications 4. Solu-Cortef 125mg IV now and Q 8 hourly 5. ABG state 6. Rocephin 1 gram Q 24 hours 7. Zithromax 500mg PO daily x 3 days 8. Daily CBC and CMP 9. Xopenex Q 6 hourly 10.Pulmicort NEBS Q 12 hourly 11.Sputum for culture and sensitivity 12.BNP 13.Accu-checks with sliding scale 14.Phenergan with codeine two teaspoons PO four times a day PRN 15.Oxygen 2 liters cannula TIME SPENT: More than 70 minutes. MTDD
--- NOTE | 2017-07-23 14:15 | PCM.PROG ---
Attending Provider: ATTENDING PROVIDER: Dr. FRENCH JACOBSON DATE OF SERVICE: 07/23/17 SUBJECTIVE: This 76 year old WHITE/ F was hospitalized 07/22/17 with acute bronchitis. Acute bronchitis seems to be doing better with less cough. REVIEW OF SYSTEMS: CONSTITUTIONAL: Positive for fatigue. No night sweats. No malaise, lethargy. No fever or chills. HEENT: Eyes: No visual changes. No eye pain. No eye discharge. ENT: No runny nose. No epistaxis. No sinus pain. No odynophagia. No congestion. RESPIRATORY: Mild cough. No congestion. No hemoptysis. No shortness of breath. CARDIOVASCULAR: No angina symptoms. No CHF symptoms. No atypical chest pain for CAD. No palpitations. No orthopnea.. GASTROINTESTINAL: No abdominal pain. No nausea or vomiting. No diarrhea or constipation. No hematemesis. No hematochezia. GENITOURINARY: No urgency. No frequency. No dysuria. No hematuria. No obstructive symptoms. No discharge. No pain. No significant abnormal bleeding. MUSCULOSKELETAL: No musculoskeletal pain; no joint swelling. NEUROLOGICAL: Awake, alert, oriented to time, place and person. No headache. No neck pain. No syncope. No seizures. No dizziness. PSYCHIATRIC: Not anxious. No depression. No suicidal thoughts. No homicidal thoughts. SKIN: No rash. No lesions. No wounds. ENDOCRINE: No unexplained weight loss. No weight gain. HEMATOLOGIC/LYMPHATIC: No anemia. No purpura. No petechiae. No prolonged or excessive bleeding. No palpable lymph nodes. PHYSICAL EXAMINATION: GENERAL: The patient is awake, alert and oriented, lying/sitting in bed in no distress. VITAL SIGNS: Temperature 97.3 F, Pulse 84, Respiratory Rate 23, BP 147/83, Pulse Ox 94% HEENT: Head normocephalic, atraumatic. Eyes: Extraocular muscles are intact. Pupils are equal, round and reactive to light and accommodation. Ears: No lesions. Nose appeared normal. Throat: No exudate or erythema. NECK: Supple. No JVD, no carotid bruit. No lymphadenopathy or thyromegaly. LUNGS: Few wheeze but more air entry than yesterday. Percussion note normal. Chest symmetrical. HEART: S1, S2, no S3. No murmurs. No cyanosis or clubbing. No ascites. Pulses: Dorsalis pedis and posterior tibial pulses +2 both sides. ABDOMEN: Soft. Non-tender. Bowel sounds active. No CVA tenderness. No mass felt. EXTREMITIES: No edema. Full range of motion of all extremities, equal. NEUROLOGIC: No focal deficit. Cranial nerves II through XII are grossly intact. No headache, no double vision or headache. SKIN: Warm and dry. Intact. Turgor-normal. LYMPHATIC: No palpable lymph nodes/no lymphedema. MUSCULOSKELETAL: Normal joints with no swelling. Muscle tone is normal. LAB REVIEW: 07/23/17 04:30 07/23/17 04:30 07/23/17 04:30: Sodium 135 L, Potassium 4.4, Chloride 97 L, Carbon Dioxide 27, Anion Gap 15.4, BUN 24 H, Creatinine 1.09, Estimated GFR (MDRD) 49.00, BUN/ Creatinine Ratio 22.01, Glucose 379 H D, Calcium 9.2, Total Bilirubin 0.3, AST 7 L, ALT 13, Alkaline Phosphatase 65, Total Protein 6.3, Albumin 3.1 L, Globulin 3.2, Albumin/Globulin Ratio 0.97 07/23/17 04:30: WBC 12.71 H, RBC 4.13 L, Hgb 11.0 L, Hct 34.3 L, MCV 83.1, MCH 26.6 L, MCHC 32.1, RDW Coeff of Monique 15.8 H, Plt Count 232, Immature Gran % (Auto ) 0.9, Neut % (Auto) 84.4, Lymph % (Auto) 10.9, [place] % (Auto) 3.5, Eos % (Auto) 0.0, Baso % (Auto) 0.3, Immature Gran # (Auto) 0.1, Neut # (Auto) 10.7 H, Lymph # (Auto) 1.4, [place] # (Auto) 0.4, Eos # (Auto) 0.0, Baso # (Auto) 0.0 07/22/17 21:21: Total Creatine Kinase 75, Troponin I 0.0100 07/22/17 15:00: Urine Color Yellow, Urine Clarity Clear, Urine pH 5.0, Ur Specific [place] 1.010, Urine Protein Negative, Urine Glucose (UA) Trace, Urine Ketones Negative, Urine Blood Negative, Urine Nitrite Negative, Urine Bilirubin Negative, Urine Urobilinogen 0.2, Ur Leukocyte Esterase Negative 07/22/17 14:00: B-Natriuretic Peptide 195 H 07/22/17 14:00: Total Creatine Kinase 83, Troponin I < 0.0100 07/22/17 14:00: Sodium 139, Potassium 4.0, Chloride 98, Carbon Dioxide 28, Anion Gap 17.0, BUN 22 H, Creatinine 1.07, Estimated GFR (MDRD) 50.00, BUN/ Creatinine Ratio 20.56, Glucose 304 H, Calcium 9.5, Total Bilirubin 0.4, AST 10 L, ALT 15, Alkaline Phosphatase 76, Total Protein 7.4, Albumin 3.6, Globulin 3.8 , Albumin/Globulin Ratio 0.95 07/22/17 14:00: WBC 9.63, RBC 4.49, Hgb 12.0, Hct 37.6, MCV 83.7, MCH 26.7 L, MCHC 31.9, RDW Coeff of Monique 15.9 H, Plt Count 249, Immature Gran % (Auto) 1.0, Neut % (Auto) 68.8, Lymph % (Auto) 18.2, [place] % (Auto) 7.7, Eos % (Auto) 3.9, Baso % (Auto) 0.4, Immature Gran # (Auto) 0.1, Neut # (Auto) 6.6, Lymph # (Auto ) 1.8, [place] # (Auto) 0.7, Eos # (Auto) 0.4, Baso # (Auto) 0.0 07/22/17 13:30: Puncture Site R rad, O2 Saturation 93.0 L, ABG pH 7.44, ABG pCO2 45.0, ABG pO2 65.0 L, ABG HCO3 31 H, ABG Total CO2 32 H, ABG Base Excess 6 H, Adam Test +, O2 Delivery Device Ra, FiO2 % 21.0 ASSESSMENT: 1. Acute bronchitis 2. Acute respiratory failure 3. Chronic lung disease 4. Diabetes mellitus - blood sugar is out of control due to steroids; on Accu- checks with coverage 5. Hypertension PLAN: 1. Will increase Toujeo to 55 units 2. Discontinue Sulfonylurea 3. Continue nebs and antibiotics 4. Add Tessalon Perles 200 mg t.i.d. for cough 5. Continue Phenergan with Codeine Plan and coordination of the patient's care discussed in the presence of Straw Hat Brim Cutter Operator and nurse CONDITION: Stable SCRIBED BY: SERVANDO CANALES Photo Manager scribed while in presence of service performed by Dr. FRENCH JACOBSON on 07/23/17 ([id number])
[2017-07-23] MEDS ORDERED: NORCO 10-325 PO PRN (15:04)
[2017-07-23] MEDS: ZITHROMAX PO SCH (18:19)
[2017-07-23] MEDS: PRADAXA PO SCH (20:34)
[2017-07-23] MEDS: ZANTAC PO SCH (20:34)
[2017-07-23] MEDS ORDERED: NON-FORMULARY MEDICATION (Dabigatran Etexilate Mesylate [Pradaxa] 150 MG) PO SCH (21:00)
[2017-07-24] MEDS: PULMICORT 0.5 MG/2 ML NEB SCH ×2 (05:05→16:42)
[2017-07-24] MEDS: XOPENEX 1.25 MG NEB SCH ×4 (05:05→22:13)
[2017-07-24] MEDS: SOLU-CORTEF 250 MG IVP SCH (06:12)
[2017-07-24] MEDS: LASIX TAB PO SCH (06:13)
[2017-07-24] MEDS: NEURONTIN PO SCH (06:13)
[2017-07-24] MEDS: HUMULIN R SUBCUT PRN ×4 (06:13→20:48)
[2017-07-24] MEDS: PROTONIX PO SCH (06:13)
[2017-07-24] MEDS: ROCEPHIN 1 GM in SODIUM CHLORIDE 50 ML IV SCH (09:28)
[2017-07-24] MEDS: ARICEPT PO SCH (09:32)
[2017-07-24] MEDS: GLUCOPHAGE PO SCH ×2 (09:33→17:27)
[2017-07-24] MEDS: ASPIRIN EC PO SCH (09:33)
[2017-07-24] MEDS: LANOXIN PO SCH (09:37)
[2017-07-24] MEDS: LEXAPRO PO SCH (09:38)
[2017-07-24] MEDS: LOTENSIN PO SCH (09:38)
[2017-07-24] MEDS: NORVASC PO SCH (09:39)
[2017-07-24] MEDS: NAMENDA PO SCH ×2 (09:39→20:46)
[2017-07-24] MEDS: ZITHROMAX PO SCH (09:40)
[2017-07-24] MEDS: TRIGLIDE PO SCH (09:40)
[2017-07-24] MEDS: PRADAXA PO SCH ×2 (09:41→20:47)
--- NOTE | 2017-07-24 11:36 | PCM.PROG ---
Attending Provider: ATTENDING PROVIDER: Dr. FRENCH JACOBSON DATE OF SERVICE: 07/24/17 SUBJECTIVE: This 76 year old WHITE/ F was hospitalized 07/22/17 with acute bronchitis, pneumonitis. Condition is improved, feeling better and coughing less. REVIEW OF SYSTEMS: CONSTITUTIONAL: No night sweats. No fatigue, malaise, lethargy. No fever or chills. HEENT: Eyes: No visual changes. No eye pain. No eye discharge. ENT: No runny nose. No epistaxis. No sinus pain. No odynophagia. No congestion. RESPIRATORY: Cough and congestion. No hemoptysis. No shortness of breath. CARDIOVASCULAR: No angina symptoms. No CHF symptoms. No atypical chest pain for CAD. No palpitations. No orthopnea.. GASTROINTESTINAL: Appetite improved. No abdominal pain. No nausea or vomiting. No diarrhea or constipation. No hematemesis. No hematochezia. GENITOURINARY: No urgency. No frequency. No dysuria. No hematuria. No obstructive symptoms. No discharge. No pain. No significant abnormal bleeding. MUSCULOSKELETAL: No musculoskeletal pain; no joint swelling. NEUROLOGICAL: Awake, alert, oriented to time, place and person. No headache. No neck pain. No syncope. No seizures. No dizziness. PSYCHIATRIC: Not anxious. No depression. No suicidal thoughts. No homicidal thoughts. SKIN: No rash. No lesions. No wounds. ENDOCRINE: No unexplained weight loss. No weight gain. HEMATOLOGIC/LYMPHATIC: No anemia. No purpura. No petechiae. No prolonged or excessive bleeding. No palpable lymph nodes. PHYSICAL EXAMINATION: GENERAL: The patient is awake, alert and oriented, lying in bed in no distress. VITAL SIGNS: Temperature 97.9 F, Pulse 70, Respiratory Rate 16, BP 113/68, Pulse Ox 93% HEENT: Head normocephalic, atraumatic. Eyes: Extraocular muscles are intact. Pupils are equal, round and reactive to light and accommodation. Ears: No lesions. Nose appeared normal. Throat: No exudate or erythema. NECK: Supple. No JVD, no carotid bruit. No lymphadenopathy or thyromegaly. LUNGS: Mild wheeze bilaterally with better air entry than yesterday. Percussion note normal. Chest symmetrical. HEART: S1, S2, no S3. No murmurs. No cyanosis or clubbing. No ascites. Pulses: Dorsalis pedis and posterior tibial pulses +1 to +2 both sides. ABDOMEN: Soft. Non-tender. Bowel sounds active. No CVA tenderness. No mass felt. EXTREMITIES: No edema. Full range of motion of all extremities, equal. NEUROLOGIC: No focal deficit. Cranial nerves II through XII are grossly intact. No headache, no double vision or headache. SKIN: Warm and dry. Intact. Turgor-normal. LYMPHATIC: No palpable lymph nodes/no lymphedema. MUSCULOSKELETAL: Normal joints with no swelling. Muscle tone is normal. LAB REVIEW: 07/24/17 04:30 07/24/17 04:30 07/24/17 04:30: Sodium 135 L, Potassium 4.3, Chloride 96 L, Carbon Dioxide 26, Anion Gap 17.3, BUN 31 H, Creatinine 1.19, Estimated GFR (MDRD) 44.00, BUN/ Creatinine Ratio 26.05, Glucose 399 H, Calcium 9.2, Total Bilirubin 0.2, AST 10 L, ALT 15, Alkaline Phosphatase 64, Total Protein 6.3, Albumin 3.1 L, Globulin 3.2, Albumin/Globulin Ratio 0.97 07/24/17 04:30: WBC 13.48 H, RBC 4.01 L, Hgb 10.9 L, Hct 33.0 L, MCV 82.3, MCH 27.2, MCHC 33.0, RDW Coeff of Monique 15.8 H, Plt Count 233, Immature Gran % (Auto) 1.1, Neut % (Auto) 81.6, Lymph % (Auto) 12.5, [place] % (Auto) 4.4, Eos % (Auto) 0.1, Baso % (Auto) 0.3, Immature Gran # (Auto) 0.2, Neut # (Auto) 11.0 H, Lymph # (Auto) 1.7, [place] # (Auto) 0.6, Eos # (Auto) 0.0, Baso # (Auto) 0.0 07/23/17 04:40: Digoxin 0.45 L ASSESSMENT: Please see below. 1. Acute bronchitis 2. Chronic lung disease 3. BMI of 37 4. Atrial fib 5. Chronic anemia 6. Diabetes mellitus PLAN: 1. D/C Solu-Cortef 2. Prednisone 20 mg daily 3. Weight loss diet discussed, advised to exercise 4. Pulmonary rehab consult 5. PFT if not done in past 6 months 6. Encouraged to be up and about Plan and coordination of the patient's care discussed in the presence of Tuft Machine Operator and nurse. CONDITION: Stable SCRIBED BY: Nasreen JONESist scribed while in presence of service performed by Dr. FRENCH JACOBSON on 07/24/17 ([id number])
[2017-07-24] MEDS: PREDNISONE PO SCH (12:26)
[2017-07-24] MEDS: MEVACOR PO SCH (17:27)
[2017-07-24] MEDS ORDERED: INSULIN GLARGINE HUM REC ANLOG 45 UNIT SUBCUT SCH (18:00)
[2017-07-24] MEDS: KEFLEX PO SCH (20:46)
[2017-07-24] MEDS: ZANTAC PO SCH (20:47)
[2017-07-25] MEDS: PULMICORT 0.5 MG/2 ML NEB SCH (04:50)
[2017-07-25] MEDS: XOPENEX 1.25 MG NEB SCH ×2 (04:50→11:12)
[2017-07-25] MEDS: PROTONIX PO SCH (05:36)
[2017-07-25] MEDS: NEURONTIN PO SCH (05:36)
[2017-07-25] MEDS: LASIX TAB PO SCH (05:36)
[2017-07-25 06:14] VITALS: BP 123/71; TEMP 97.8
[2017-07-25] MEDS ORDERED: INSULIN GLARGINE HUM REC ANLOG 55 UNIT SUBCUT SCH (06:32)
[2017-07-25] MEDS: HUMULIN R SUBCUT PRN (06:42)
[2017-07-25] MEDS: GLUCOPHAGE PO SCH (08:49)
[2017-07-25] MEDS: LOTENSIN PO SCH (08:49)
[2017-07-25] MEDS: KEFLEX PO SCH (08:49)
[2017-07-25] MEDS: TRIGLIDE PO SCH (08:50)
[2017-07-25] MEDS: NORVASC PO SCH (08:50)
[2017-07-25] MEDS: NAMENDA PO SCH (08:50)
[2017-07-25] MEDS: LANOXIN PO SCH (08:50)
[2017-07-25] MEDS: PREDNISONE PO SCH (08:50)
[2017-07-25] MEDS: ASPIRIN EC PO SCH (08:50)
[2017-07-25] MEDS: ARICEPT PO SCH (08:50)
[2017-07-25] MEDS: LEXAPRO PO SCH (08:50)
[2017-07-25] MEDS: PRADAXA PO SCH (08:51)
--- NOTE | 2017-07-25 11:14 | CM.DICTOOL ---
ADMISSION: 07/22/17 12:47 DISCHARGE: 07/25/17 DATE OF SERVICE: 07/26/15 FINAL DIAGNOSIS ACUTE BRONCHITIS SEVERE CHRONIC LUNG DISEASE ACUTE RESPIRATORY FAILURE A-FIB, NONVALVULAR (JANITOR ANTI-COAG) CHRONIC ANEMIA DM, TYPE 2 OBESITY (BMI 36.8) GERD DYSLIPIDEMIA HYPERTENSION EARLY ALZHEIMER'S TYPE DEMENTIA NEUROPATHY BACK SURGERIES X2 HYSTERECTOMY TOTAL LEFT KNEE, 06/26/15 (S. JACOBSON) TOTAL RIGHT KNEE, 12/18/16 (S. JACOBSON) POST OPERATIVE SYMPTOMATIC ANEMIA REQUIRING TRANSFUSIONS X2, 12/23/16 LAST VITALS Temp Pulse Resp BP Pulse Ox 97.8 F 95 H 18 123/71 94 L 07/25/17 06:00 07/25/17 08:50 07/25/17 06:00 07/25/17 06:00 07/25/17 06:00 MEDICATIONS TO BE TAKEN AT HOME Albuterol Sulfate (Ventolin Hfa) 90 Mcg IH Q6H PRN PRN Reason: SOA Last Admin: 07/24/17 22:45 Dose: 2 puff Amlodipine Besylate (Norvasc) 10 mg PO DAILY [facility] Last Admin: 07/25/17 08:50 Dose: 10 mg Benazepril HCl (Lotensin) 40 mg PO DAILY [facility] Last Admin: 07/25/17 08:49 Dose: 40 mg Budesonide (Pulmicort 0.5 Mg/2 Ml) 1 vial NEB RTBID [facility] Last Admin: 07/25/17 04:50 Dose: 1 vial Cephalexin (Keflex) 500 mg PO BID X 5 DAYS [facility] Last Admin: 07/25/17 08:49 Dose: 500 mg Dabigatran (Pradaxa) 150 mg PO Q12HR [facility] Last Admin: 07/25/17 08:51 Dose: 150 mg Digoxin (Lanoxin) 125 mcg PO DAILY [facility] Last Admin: 07/25/17 08:50 Dose: 125 mcg Donepezil HCl (Aricept) 10 mg PO DAILY [facility] Last Admin: 07/25/17 08:50 Dose: 10 mg Escitalopram Oxalate (Lexapro) 10 mg PO DAILY [facility] Last Admin: 07/25/17 08:50 Dose: 10 mg Fenofibrate (Triglide) 54 mg PO DAILY [facility] Last Admin: 07/25/17 08:50 Dose: 54 mg Furosemide (Lasix Tab) 40 mg PO QDAC [facility] Last Admin: 07/25/17 05:36 Dose: 40 mg Gabapentin (Neurontin) 300 mg PO QDAC [facility] Last Admin: 07/25/17 05:36 Dose: 300 mg Hydrocodone Bitart/Acetaminophen ([place] 10-325) 1 tab PO Q8H PRN PRN Reason: Analgesia Lovastatin (Mevacor) 40 mg PO QPM [facility] Last Admin: 07/24/17 17:27 Dose: 40 mg Memantine (Namenda) 10 mg PO BID [facility] Last Admin: 07/25/17 08:50 Dose: 10 mg Metformin HCl (Glucophage) 1,000 mg PO BIDWM [facility] Last Admin: 07/25/17 08:49 Dose: 1,000 mg Insulin Glargine,Hum.Rec.Anlog [Eleanor [place]] 55 units SUBCUT 1800 [facility] Pantoprazole Sodium (Protonix) 40 mg PO QDAC [facility] Last Admin: 07/25/17 05:36 Dose: 40 mg Prednisone (Prednisone) 10 mg PO BIDWM [facility] Last Admin: 07/25/17 08:50 Dose: 20 mg Ranitidine HCl (Zantac) 300 mg PO BEDTIME [facility] Last Admin: 07/24/17 20:47 Dose: 300 mg DISCONTINUED MEDICATIONS Glimepiride (Amaryl) 4 mg PO at 1700 daily ALLERGIES No Known Allergies Allergy (Verified 05/06/16 21:36) NEW PRESCRIPTIONS: KEFLEX 500 MG, TAKE ONE CAPSULE BY MOUTH TWICE DAILY FOR 5 DAYS PREDNISONE 20 MG, TAKE ONE TABLET BY MOUTH WITH FOOD DAILY FOR 5 DAYS SMOKING: FORMER SMOKER NONE NOW DISEASE SPECIFIC EDUCATION: BRONCHITIS RESPIRATORY FAILURE DIABETES AND LIFESTYLE CHANGES NECESSARY TO PROPERLY MANAGE AND CONTROL HER DISEASE HOME MEDICATIONS AND CHANGES NEW PRESCRIPTIONS FOLLOW UP LAB REVIEW: 07/25/17 05:40 07/25/17 05:40 07/25/17 05:40: Sodium 138, Potassium 3.7, Chloride 96 L, Carbon Dioxide 29, Anion Gap 16.7, BUN 26 H, Creatinine 1.02, Estimated GFR (MDRD) 53.00, BUN/ Creatinine Ratio 25.49, Glucose 254 H, Calcium 9.1, Total Bilirubin 0.3, AST 9 L , ALT 12, Alkaline Phosphatase 62, Total Protein 6.4, Albumin 3.2 L, Globulin 3.2, Albumin/Globulin Ratio 1.00 07/25/17 05:40: WBC 13.80 H, RBC 4.04 L, Hgb 10.8 L, Hct 33.4 L, MCV 82.7, MCH 26.7 L, MCHC 32.3, RDW Coeff of Monique 15.9 H, Plt Count 237, Immature Gran % (Auto ) 0.9, Neut % (Auto) 71.0, Lymph % (Auto) 20.7, [place] % (Auto) 6.7, Eos % (Auto) 0.3, Baso % (Auto) 0.4, Immature Gran # (Auto) 0.1, Neut # (Auto) 9.8 H, Lymph # (Auto) 2.9, [place] # (Auto) 0.9, Eos # (Auto) 0.0, Baso # (Auto) 0.1 PLAN: DISCHARGE HOME TODAY RETURN TO SEE DR. JACOBSON IN HIS OFFICE ON 08/01/17 AT 10:15 A.M. RESUME YOUR HOME MEDICATIONS PER LIST PROVIDED BY THE NURSING STAFF DISCONTINUE YOUR GLIMEPIRIDE (AMARYL) INCREASE YOUR GLARGINE INSULIN (TOUJEO) TO 55 UNITS SUBCUTANEOUSLY AT 6 P.M. DAILY NEW MEDICATIONS KEFLEX 500 MG, TAKE ONE CAPSULE BY MOUTH TWICE DAILY FOR 5 DAYS PREDNISONE 20 MG, TAKE ONE TABLET BY MOUTH WITH FOOD DAILY FOR 5 DAYS ACTIVITY GET PLENTY OF REST AT HOME. GRADUALLY INCREASE YOUR ACTIVITY LEVEL ACCORDING TO YOUR TOLERATION DIET CONSISTENT CARBS, WEIGHT LOSS SUMMARY THE PATIENT IS ALERT AND ORIENTED X3. SHE IS INDEPENDENT WITH ADL'S AT HOME. SHE HAS A ROLLING WALKER, ELEVATED COMMODE SEAT AND SHOWER CHAIR AT HOME. SHE DOES NOT HAVE ANY HOME HEALTH OR HOMEMAKING SERVICES AND IS NOT INTERESTED IN OBTAINING THESE SERVICES. SHE DESIRES TO RETURN HOME AT DISCHARGE. THE SKIN TURGOR IS INTACT AND WITHOUT DECUBITUS ULCERS. HYDRATION AND NUTRITIONAL STATUS ARE GOOD. MS. SNYDER TELLS US SHE IS FEELING MUCH BETTER AND IS READY FOR TODAY'S DISCHARGE. WE WILL FOLLOW HER THROUGH THE OFFICE NOTED ABOVE. CURRENT CODE STATUS FULL CODE FRENCH JACOBSON M.D.
--- NOTE | 2017-07-25 11:16 | PCM.PROG ---
Attending Provider: ATTENDING PROVIDER: Dr. FRENCH JACOBSON DATE OF SERVICE: 07/25/17 SUBJECTIVE: This 76 year old WHITE/ F was hospitalized 07/22/17 with acute bronchitis/pneumonitis and acute respiratory failure. Condition is improved. REVIEW OF SYSTEMS: CONSTITUTIONAL: No night sweats. No fatigue, malaise, lethargy. No fever or chills. HEENT: Eyes: No visual changes. No eye pain. No eye discharge. ENT: No runny nose. No epistaxis. No sinus pain. No odynophagia. No congestion. RESPIRATORY: Mild cough, less than before. No congestion. No hemoptysis. No shortness of breath. CARDIOVASCULAR: No angina symptoms. No CHF symptoms. No atypical chest pain for CAD. No palpitations. No orthopnea.. GASTROINTESTINAL: No abdominal pain. No nausea or vomiting. No diarrhea or constipation. No hematemesis. No hematochezia. GENITOURINARY: No urgency. No frequency. No dysuria. No hematuria. No obstructive symptoms. No discharge. No pain. No significant abnormal bleeding. MUSCULOSKELETAL: No musculoskeletal pain; no joint swelling. NEUROLOGICAL: Awake, alert, oriented to time, place and person. No headache. No neck pain. No syncope. No seizures. No dizziness. PSYCHIATRIC: Not anxious. No depression. No suicidal thoughts. No homicidal thoughts. SKIN: No rash. No lesions. No wounds. ENDOCRINE: No unexplained weight loss. No weight gain. HEMATOLOGIC/LYMPHATIC: No anemia. No purpura. No petechiae. No prolonged or excessive bleeding. No palpable lymph nodes. PHYSICAL EXAMINATION: GENERAL: The patient is awake, alert and oriented, lying/sitting in bed in no distress. VITAL SIGNS: Temperature 97.8 F, Pulse 75, Respiratory Rate 18, BP 123/71, Pulse Ox 94% HEENT: Head normocephalic, atraumatic. Eyes: Extraocular muscles are intact. Pupils are equal, round and reactive to light and accommodation. Ears: No lesions. Nose appeared normal. Throat: No exudate or erythema. NECK: Supple. No JVD, no carotid bruit. No lymphadenopathy or thyromegaly. LUNGS: No wheeze. Decreased breath sounds. Percussion note normal. Chest symmetrical. HEART: S1, S2, no S3. No murmurs. No cyanosis or clubbing. No ascites. Pulses: Dorsalis pedis and posterior tibial pulses +1 to +2 both sides. ABDOMEN: Soft. Non-tender. Bowel sounds active. No CVA tenderness. No mass felt. EXTREMITIES: No edema. Full range of motion of all extremities, equal. NEUROLOGIC: No focal deficit. Cranial nerves II through XII are grossly intact. No headache, no double vision or headache. SKIN: Warm and dry. Intact. Turgor-normal. LYMPHATIC: No palpable lymph nodes/no lymphedema. MUSCULOSKELETAL: Normal joints with no swelling. Muscle tone is normal. LAB REVIEW: 07/25/17 05:40 07/25/17 05:40 07/25/17 05:40: Sodium 138, Potassium 3.7, Chloride 96 L, Carbon Dioxide 29, Anion Gap 16.7, BUN 26 H, Creatinine 1.02, Estimated GFR (MDRD) 53.00, BUN/ Creatinine Ratio 25.49, Glucose 254 H, Calcium 9.1, Total Bilirubin 0.3, AST 9 L , ALT 12, Alkaline Phosphatase 62, Total Protein 6.4, Albumin 3.2 L, Globulin 3.2, Albumin/Globulin Ratio 1.00 07/25/17 05:40: WBC 13.80 H, RBC 4.04 L, Hgb 10.8 L, Hct 33.4 L, MCV 82.7, MCH 26.7 L, MCHC 32.3, RDW Coeff of Monique 15.9 H, Plt Count 237, Immature Gran % (Auto ) 0.9, Neut % (Auto) 71.0, Lymph % (Auto) 20.7, [place] % (Auto) 6.7, Eos % (Auto) 0.3, Baso % (Auto) 0.4, Immature Gran # (Auto) 0.1, Neut # (Auto) 9.8 H, Lymph # (Auto) 2.9, [place] # (Auto) 0.9, Eos # (Auto) 0.0, Baso # (Auto) 0.1 ASSESSMENT: 1. Acute respiratory failure with pneumonitis resolved 2. Bronchial asthma 3. Severe chronic lung disease 4. Atrial fibrillation 5. Anemia 6. Hypertension 7. Diabetes mellitus PLAN: 1. Discontinue Amaryl 2. Keflex 500 mg b.i.d. for 5 days 3. Prednisone 10 mg twice a day for 5 days 4. Counseling for weight loss, diet done 5. Discharge home 6. Instructed to rest over the weekend Plan and coordination of the patient's care discussed in the presence of Echocardiographer and nurse. CONDITION: Stable SCRIBED BY: SERVANDO CANALES Ivf Embryologist scribed while in presence of service performed by Dr. FRENCH JACOBSON on 07/25/17 (0800)
--- NOTE | 2017-07-29 13:23 | DS ---
DATE OF SERVICE: 07/25/17 FINAL DIAGNOSIS: ACUTE BRONCHITIS SEVERE CHRONIC LUNG DISEASE ACUTE RESPIRATORY FAILURE A-FIB, NONVALVULAR (USP ANTI-COAG) CHRONIC ANEMIA DM, TYPE 2 OBESITY (BMI 36.8) GERD DYSLIPIDEMIA HYPERTENSION EARLY ALZHEIMER'S TYPE DEMENTIA NEUROPATHY BACK SURGERIES X2 HYSTERECTOMY TOTAL LEFT KNEE, 06/26/15 (Mima JACOBSON) TOTAL RIGHT KNEE, 12/18/16 (Mima JACOBSON) POST OPERATIVE SYMPTOMATIC ANEMIA REQUIRING TRANSFUSIONS X2, 12/23/16 LAST VITALS Temp Pulse Resp BP Pulse Ox 97.8 F 95 H 18 123/71 94 L DISCHARGE INSTRUCTIONS: DISCHARGE HOME TODAY. RETURN TO SEE DR. JACOBSON IN HIS OFFICE ON 08/01/17 AT 10:15 A.M. RESUME YOUR HOME MEDICATIONS PER LIST PROVIDED BY THE NURSING STAFF. DISCONTINUE YOUR GLIMEPIRIDE (AMARYL). INCREASE YOUR GLARGINE INSULIN (TOUJEO) TO 55 UNITS SUBCUTANEOUSLY AT 6 P.M. DAILY MEDICATIONS TO BE TAKEN AT HOME Albuterol Sulfate (Ventolin Hfa) 90 Mcg IH Q6H PRN Amlodipine Besylate (Norvasc) 10 mg PO DAILY [facility] Benazepril HCl (Lotensin) 40 mg PO DAILY [facility] Budesonide (Pulmicort 0.5 Mg/2 Ml) 1 vial NEB RTBID [facility] Cephalexin (Keflex) 500 mg PO BID X 5 DAYS [facility] Dabigatran (Pradaxa) 150 mg PO Q12HR [facility] Digoxin (Lanoxin) 125 mcg PO DAILY [facility] Donepezil HCl (Aricept) 10 mg PO DAILY [facility] Escitalopram Oxalate (Lexapro) 10 mg PO DAILY [facility] Fenofibrate (Triglide) 54 mg PO DAILY [facility] Furosemide (Lasix Tab) 40 mg PO QDAC [facility] Gabapentin (Neurontin) 300 mg PO QDAC [facility] Hydrocodone Bitart/Acetaminophen ([place] 10-325) 1 tab PO Q8H PRN Lovastatin (Mevacor) 40 mg PO QPM [facility] Memantine (Namenda) 10 mg PO BID [facility] Metformin HCl (Glucophage) 1,000 mg PO BIDWM [facility] Insulin Glargine,Hum.Rec.Anlog [Toujeo Solostar] 55 units SUBCUT 1800 [facility] Pantoprazole Sodium (Protonix) 40 mg PO QDAC [facility] Prednisone (Prednisone) 10 mg PO BIDWM [facility] Ranitidine HCl (Zantac) 300 mg PO BEDTIME [facility] DISCONTINUED MEDICATIONS Glimepiride (Amaryl) 4 mg PO at 1700 daily ALLERGIES No Known Allergies Allergy (Verified 05/06/16 21:36) NEW PRESCRIPTIONS: KEFLEX 500 MG, TAKE ONE CAPSULE BY MOUTH TWICE DAILY FOR 5 DAYS PREDNISONE 20 MG, TAKE ONE TABLET BY MOUTH WITH FOOD DAILY FOR 5 DAYS SMOKING: FORMER SMOKER NONE NOW ACTIVITY GET PLENTY OF REST AT HOME. GRADUALLY INCREASE YOUR ACTIVITY LEVEL ACCORDING TO YOUR TOLERATION DIET CONSISTENT CARBS, WEIGHT LOSS DISEASE SPECIFIC EDUCATION: BRONCHITIS RESPIRATORY FAILURE DIABETES AND LIFESTYLE CHANGES NECESSARY TO PROPERLY MANAGE AND CONTROL HER DISEASE HOME MEDICATIONS AND CHANGES NEW PRESCRIPTIONS FOLLOW UP HOSPITAL COURSE: 76 year old white female hospitalized with acute bronchitis and respiratory failure. The patient was aggressively treated with Rocephin, Zithromax, Iv steroids and NEBS treatment. The patient's condition improved within 2 days she will feeling a lot better. Her appetite improved. She was not wheezing and even on auscultation. She was advised to join cardiac rehab which she declined. The patient was discharged on antibiotics, steroids and NEBS treatment. She was advised to lose weight, her BMI Is 37. Pulmonary rehab she declined. Condition at the time of discharge is stable. Side effects of steroids like cataracts, vascular necrosis of femoral bone, osteoporosis etc. discussed. Pradaxa side effects were discussed like intracranial bleed, GI bleed and she is advised to avoid nonsteroidal antiinflammatory. The patient's diabetes is also out of control at present time because of steroids. Her oxygen saturation 93% on room air. CONDITION: Stable. TIME SPENT: More than 60 minutes. MTDD
--- NOTE | 2017-07-29 13:25 | PN ---
07/22/17: Level 5 07/23/17: Intermediate 07/24/17: Intermediate 07/25/17: D as in discharge MTDD
== END 2017-07-25 12:10 | disposition home or self-care (01) | DRG 202 ==
LOC: MEDSURG B 12:47
PROVIDERS: ADMIT Internal Medicine; ATTEND Internal Medicine
DX: J20.9 Acute bronchitis, unspecified (principal); J96.00 Acute respiratory failure, unspecified whether with hypoxia or hypercapnia; J44.0 Chronic obstructive pulmonary disease with (acute) lower respiratory infection; I48.91 Unspecified atrial fibrillation; E11.9 Type 2 diabetes mellitus without complications; I10 Essential (primary) hypertension; D50.0 Iron deficiency anemia secondary to blood loss (chronic); E66.9 Obesity, unspecified; K21.9 Gastro-esophageal reflux disease without esophagitis; E78.5 Hyperlipidemia, unspecified; G30.0 Alzheimer's disease with early onset; F02.80 Dementia in other diseases classified elsewhere, unspecified severity, without behavioral disturbance, psychotic disturbance, mood disturbance, and anxiety; G62.9 Polyneuropathy, unspecified; Z79.02 Long term (current) use of antithrombotics/antiplatelets; Z86.73 Personal history of transient ischemic attack (TIA), and cerebral infarction without residual deficits; Z68.36 Body mass index [BMI] 36.0-36.9, adult
CPT/HCPCS: 36415; 80053; 80162; 81001; 82550; 82803; 82962; 83880; 84484; 85025; 87070; 87081; 93005; 93010; 94640; 99223; 99232; 99239

== ENCOUNTER 2019-04-11 21:28 | Observation (INO) ==
[2019-04-11 21:40] VITALS: BMI 36.9
--- NOTE | 2019-04-11 22:02 | ED.PDOC ---
General ED Provider: Dr. ROSALBA CANELA Chief Complaint: Nausea/Vomiting Stated Complaint: vomiting past 48 hours, had been on antibiotics Time Seen by Physician: 21:59 Mode of Arrival: Wheelchair Information Source: Patient Primary Care Provider: FRENCH JACOBSON Seen Within Last 72 Hours for Same Complaint By: ED Nursing and Triage Documentation Reviewed and Agree: Yes Does patient meet sepsis criteria?: No If yes, has appropriate treatment been initiated?: No System Inflammatory Response Syndrome: Not Applicable Sepsis Protocol: For patient's 13 years and over: Temp is 96.8 and below OR 101 and greater Pulse >90 BPM Resp >20/minute Acutely Altered Mental Status Are patient's symptoms suggestive of a new infection, such as: -Pneumonia -Skin, Soft Tissue -Endocarditis -UTI -Bone, Joint Infection -Implantable Device -Acute Abdominal Infection -Wound Infection -Meningitis -Blood Stream Catheter Infection -Unknown GI Complaint Exam Vomiting/Diarrhea Complaint/Exam Onset/Duration: 2 days Symptoms Are: Still present Episodes of Vomiting over last 24 Hours: 2 Episodes of Diarrhea Over Last 24 Hours: 0 Initial Severity: Mild Current Severity: Mild Character of Vomiting: Reports Non-bilious Character of Diarrhea: Reports Watery Aggravating: Reports None Alleviating: Reports None Associated Signs and Symptoms: Reports Light-headedness and Cramping Related History: Reports Recent antibiotics Last Oral Intake: this morning Last Bowel Movement: half hour 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 diarrhea and weakness, vomiting increased since started antibiotic) Rectal Exam: Present Other (deferred) [place] Respirations Present: No Differential Diagnoses: Bowel Obstruction, Cholecystitis, Cholelithiasis, Dehydration, Gastritis, PUD, Viral Gastroenteritis, Bacterial Gastroenteritis and UTI Review of Systems Review Of Systems Constitutional: Reports Chills, Fever, Malaise, Weakness and Loss of appetite Eyes: Reports No symptoms and Decreased acuity Ears, Nose, Mouth, Throat: Reports No symptoms Respiratory: Reports No symptoms Cardiac: Reports No symptoms GI: Reports Abdomen distended, Diarrhea, Nausea and Vomiting : Reports No symptoms Musculoskeletal: Reports No symptoms Skin: Reports No symptoms Neurological: Reports Cognitive dysfunction, Weakness and Other (family reports patient is more confused than her usual baseline.) Endocrine: Reports No symptoms All Other Systems: Reviewed and Negative [facility] Medical History (Updated 04/12/19 @ 02:05 by OCTAVIA BURNETT RN) A-fib (Acute) Anxiety (Acute) Arthritis (Acute) CAD (coronary artery disease) (Acute) COPD (chronic obstructive pulmonary disease) (Acute) CVA (cerebral vascular accident) (Acute) Depression (Acute) Diabetes (Acute) GERD (gastroesophageal reflux disease) (Acute) History of hysterectomy (Acute) Hyperlipidemia (Acute) Hypertension (Acute) Myocardial infarction (Acute) Total knee replacement status (Acute) Social History (Updated 04/12/19 @ 02:05 by OCTAVIA BURNETT RN) Smoking and tobacco status: Former smoker Alcohol intake: never Number of children: 2 Number of grandchildren: 3 Highest education level completed: Associate degree: academic program Pets and animals: Yes Sexually active: No Do you think of yourself as: straight/heterosexual Current gender identity: female Current diet type/program: diabetic Well-balanced diet: rarely Caffeine: Yes Water heater temperature set < 120 degrees: Yes Working smoke detector in home: Yes Fire extinguisher in home: Yes Carbon monoxide detector in home: Yes Firearms in home: Yes Firearms unloaded and locked: Yes Female Reproductive History Menstrual Hx Hysterectomy: Yes (44 years ago) Hx Tubal Ligation: No Physical Exam Physical Exam Appearance: Ill-appearing Ill-appearing: Moderate Pain Distress: None Eyes: EOMI ENT: Ears normal, Nose normal and Oropharynx normal Neck: Supple Respiratory: Airway patent, Breath sounds clear, Breath sounds equal and Respirations nonlabored Cardiovascular: RRR and Pulses normal GI/: Soft, Nontender and Bowel sounds hypoactive Musculoskeletal: Limited strength Skin: Warm and Dry Neurological: Motor intact, Reflexes intact, Cranial nerves intact, Alert, Disoriented, Alert to verbal and Alert to pain Psychiatric: Anxious Physician Notification Case Discussed Physician Notified: Dr. Jacobson Time of Notification: 01:13 Time of Discussion: 01:13 Admit/Transition Orders Entered by ED Provider: Yes Reviewed With: Dr Jacobson Admit To: Observation Critical Care Note Critical Care Note Total Time (mins): 45 Comments: CC time including several re-evaluations, consideration of lab, xray, EKG results compared to prior, considering sources of fever, differential diagnoses considered, time speaking with patient and family, and discussion with attending physician. Course Course Hematology/Chemistry: 04/12/19 04:50 04/12/19 04:50 Orders, Labs, Meds: Lab Review 04/11/19 04/11/19 04/12/19 22:30 22:30 00:19 WBC 13.83 H RBC 4.26 Hgb 11.4 L Hct 37.5 MCV 88.0 MCH 26.8 L MCHC 30.4 L RDW Coeff of Monique 15.0 H Plt Count 287 Immature Gran % (Auto) 1.0 Neut % (Auto) 74.0 Lymph % (Auto) 14.9 [place] % (Auto) 9.0 Eos % (Auto) 0.8 Baso % (Auto) 0.3 Immature Gran # (Auto) 0.1 Neut # (Auto) 10.2 H Lymph # (Auto) 2.1 [place] # (Auto) 1.3 Eos # (Auto) 0.1 Baso # (Auto) 0.0 Sodium 135.7 Potassium 4.59 Chloride 97.4 L Carbon Dioxide 28.6 Anion Gap 14.29 BUN 26.3 H Creatinine 1.57 H Estimated GFR (MDRD) 32.00 BUN/Creatinine Ratio 16.75 Glucose 88.9 Calcium 9.15 Magnesium 1.88 Total Bilirubin 0.50 AST 21.2 ALT 17.2 Alkaline Phosphatase 53.4 Total Protein 7.55 Albumin 4.24 Globulin 3.31 Albumin/Globulin Ratio 1.28 Amylase 69.5 Lipase 87.6 Urine Color Yellow Urine Clarity Slightly Urine pH 5.0 Ur Specific [place] >=1.030 Urine Protein Negative Urine Glucose (UA) Negative Urine Ketones Trace Urine Blood Negative Urine Nitrite Negative Urine Bilirubin Negative Urine Urobilinogen 0.2 Ur Leukocyte Esterase Negative Urine Microscopic WBC 0-2 Ur Squamous Epith Cells 2-5 Hyaline Casts 0-2 Orders Category Date Time Status ED ACCUCHECK ASSESSMENT .ONCE EMERGENCY 04/12/19 00:39 Active ED IV/MEDIPORT/POWERPORT .ONCE EMERGENCY 04/11/19 22:09 Active AMYLASE Stat LAB 04/11/19 22:30 Completed CBC W/ AUTO DIFF Stat LAB 04/11/19 22:30 Completed COMPREHENSIVE METABOLIC PANEL Stat LAB 04/11/19 22:30 Completed LIPASE Stat LAB 04/11/19 22:30 Completed MAGNESIUM Stat LAB 04/11/19 22:30 Completed URINALYSIS C & S IF INDICATED Stat LAB 04/12/19 00:19 Completed 0.9 % Sodium Chloride [Saline Flush] MEDS 04/11/19 22:09 Active 1 syr IVF PRN PRN Acetaminophen [Tylenol] MEDS 04/11/19 23:24 Discontinued 325 mg PO ONCE STA Ondansetron HCl/Pf [Zofran 4 mg/2 ml] MEDS 04/11/19 22:12 Discontinued 4 mg IVP ONCE STA Sodium Chloride 0.9% [Sodium Chloride] 1,000 ml MEDS 04/11/19 22:30 Active IV 125 mls/hr ABDOMEN, SERIES FLAT & UPRIGHT Stat RADS 04/12/19 00:02 Completed CHEST, 1V AP ONLY Stat RADS 04/12/19 00:02 Completed Medications Generic Name Dose Route Start Last Admin Trade Name Freq PRN Reason Stop Dose Admin Acetaminophen 650 mg 04/12/19 01:22 Tylenol PO Q4H PRN Mild Pain Amlodipine Besylate 10 mg 04/12/19 09:00 Norvasc PO DAILY [facility] Benazepril HCl 40 mg 04/12/19 09:00 Lotensin PO DAILY [facility] Digoxin 125 mcg 04/12/19 09:00 Lanoxin PO DAILY [facility] Donepezil HCl 10 mg 04/12/19 09:00 Aricept PO DAILY [facility] Gabapentin 300 mg 04/12/19 09:00 Neurontin PO QDAC [facility]IAN[facility] Sodium Chloride 1,000 mls @ 125 mls/hr 04/11/19 22:30 04/11/19 22:55 Sodium Chloride IV 04/12/19 06:29 125 mls/hr .Q8H STA Administration Sodium Chloride 1,000 mls @ 125 mls/hr 04/12/19 01:30 Sodium Chloride IV .Q8H [facility] Lovastatin 40 mg 04/12/19 17:00 Mevacor PO 1700 [facility] Memantine 10 mg 04/12/19 09:00 Namenda PO BID [facility] Metformin HCl 1,000 mg 04/12/19 08:00 Glucophage PO BIDWM [facility] Ondansetron HCl 4 mg 04/12/19 01:30 Zofran Tab PO Q6H PRN Nausea / Vomiting Sodium Chloride 1 syr 04/11/19 22:09 04/11/19 22:55 Saline Flush IVF 1 syr PRN PRN Administration To flush IV Tramadol HCl 50 mg 04/12/19 01:30 Ultram PO BID PRN Pain Warfarin Sodium 2 mg 04/12/19 09:00 Coumadin PO DAILY [facility] Warfarin Sodium 5 mg 04/12/19 09:00 Coumadin PO DAILY [facility] Discontinued Medications Generic Name Dose Route Start Last Admin Trade Name Sarah PRN Reason Stop Dose Admin Acetaminophen 325 mg 04/11/19 23:24 04/11/19 23:32 Tylenol PO 04/11/19 23:25 325 mg ONCE STA Administration Gabapentin 300 mg 04/12/19 06:30 Neurontin PO QDAC [facility] Ondansetron HCl 4 mg 04/11/19 22:12 04/11/19 22:56 Zofran 4 Mg/2 Ml IVP 04/11/19 22:13 4 mg ONCE STA Administration Vital Signs: Temp Pulse Resp BP Pulse Ox 04/12/19 01:00 98.6 F 62 20 129/79 92 L 04/11/19 23:05 100 F H 04/11/19 21:32 100.4 F H 84 18 149/79 H 86 L Discharge Plan Discharge Patient Disposition: PLACED OBSERVATION ED Provider: ROSALBA CANELA Condition: Stable Discharge Date/Time: 04/12/19 01:40
[2019-04-11] MEDS ORDERED: ZOFRAN 4 MG/2 ML IVP STA (22:12)
[2019-04-11] MEDS ORDERED: SODIUM CHLORIDE 1,000 ML IV STA (22:30)
[2019-04-11] MEDS ORDERED: TYLENOL PO STA (23:24)
--- NOTE | 2019-04-12 00:44 | DI ---
EXAM: Upright and supine views of the abdomen. HISTORY: Diarrhea. FINDINGS: There is a moderate amount of air in the colon which measures up to 5.5 cm in diameter. No evidence of bowel obstruction. There are multiple air-fluid levels in the colon consistent with the patient's history of diarrhea. No evidence of free intraperitoneal air. There are degenerative and operative changes in the spine. Impression: Nonspecific nonobstructive bowel gas pattern as described.
--- NOTE | 2019-04-12 00:46 | DI ---
EXAM: Single-view chest HISTORY: Cough COMPARISON: Two-view chest 04/09/2019 FINDINGS: Patient is mildly rotated to the right. The heart is enlarged. Atherosclerotic changes a re seen involving the aortic arch.. Previously noted opacity medially at the right apex is partially obscured by rotation. IMPRESSION: Right upper lobe opacity medially at the right apex is partially obscured by the rotation and likely unchanged. . Cardiomegaly
[2019-04-12] MEDS ORDERED: TYLENOL PO PRN (01:22)
[2019-04-12] MEDS ORDERED: SODIUM CHLORIDE 1,000 ML IV SCH ×2 (01:30→13:30)
[2019-04-12] MEDS ORDERED: ULTRAM PO PRN (01:30)
[2019-04-12] MEDS ORDERED: ZOFRAN TAB PO PRN (01:30)
[2019-04-12] MEDS ORDERED: NEURONTIN PO SCH ×2 (06:30→09:00)
[2019-04-12] MEDS ORDERED: GLUCOPHAGE PO SCH (08:00)
[2019-04-12] MEDS: SODIUM CHLORIDE 500 ML IV SCH ×2 (08:15→17:18)
[2019-04-12] MEDS: SODIUM CHLORIDE 1,000 ML IV SCH (08:15)
--- NOTE | 2019-04-12 08:41 | PCM.PROG ---
Attending Provider: ATTENDING PROVIDER: Dr. FRENCH JACOBSON This patient is seen with Antoinette Martínez, Nurse Practitioner. DATE OF SERVICE: 04/12/19 SUBJECTIVE: This 78 year old /WHITE F was hospitalized 04/12/19. The patient is resting comfortably. She has had one loose stool. Low grade temperature. She was treated for UTI on Friday. Culture and sensitivity is pending. REVIEW OF SYSTEMS: CONSTITUTIONAL: No night sweats. No fatigue, malaise, lethargy. No fever or chills. Weakness. HEENT: Eyes: No visual changes. No eye pain. No eye discharge. ENT: No runny nose. No epistaxis. No sinus pain. No odynophagia. No congestion. RESPIRATORY: No cough, no congestion. No hemoptysis. No shortness of breath. CARDIOVASCULAR: No angina symptoms. No CHF symptoms. No atypical chest pain for CAD. No palpitations. No orthopnea.. GASTROINTESTINAL: No abdominal pain. No nausea or vomiting. Diarrhea. No hematemesis. No hematochezia. GENITOURINARY: No urgency. No frequency. No dysuria. No hematuria. No obstructive symptoms. No discharge. No pain. No significant abnormal bleeding. MUSCULOSKELETAL: No musculoskeletal pain; no joint swelling. NEUROLOGICAL: Confusion. No headache. No neck pain. No syncope. No seizures. No dizziness. PSYCHIATRIC: Not anxious. No depression. No suicidal thoughts. No homicidal thoughts. SKIN: No rash. No lesions. No wounds. ENDOCRINE: No unexplained weight loss. No weight gain. HEMATOLOGIC/LYMPHATIC: No anemia. No purpura. No petechiae. No prolonged or excessive bleeding. No palpable lymph nodes. PHYSICAL EXAMINATION: GENERAL: The patient is awake, alert and oriented, lying in bed in no distress. VITAL SIGNS: Temperature 99.1 F, Pulse 70, Respiratory Rate 18, BP 123/65, Pulse Ox 94% HEENT: Head normocephalic, atraumatic. Eyes: Extraocular muscles are intact. Pupils are equal, round and reactive to light and accommodation. Ears: No lesions. Nose appeared normal. Throat: No exudate or erythema. NECK: Supple. No JVD, no carotid bruit. No lymphadenopathy or thyromegaly. LUNGS: Diminished breath sounds. Clear to auscultation. Percussion note normal. Chest symmetrical. HEART: S1, S2, no S3. No murmurs. Irregular heart rate. No cyanosis or clubbing. No ascites. Pulses: Dorsalis pedis and posterior tibial pulses +1 to +2 both sides. ABDOMEN: Soft. Non-tender. Bowel sounds active. No CVA tenderness. No mass felt. EXTREMITIES: No edema. Full range of motion of all extremities, equal. NEUROLOGIC: No focal deficit. Cranial nerves II through XII are grossly intact. No headache, no double vision or headache. SKIN: Not dry. Intact. Turgor-normal. LYMPHATIC: No palpable lymph nodes/no lymphedema. MUSCULOSKELETAL: Normal joints with no swelling. Muscle tone is normal. LAB REVIEW: 04/12/19 04:50 04/12/19 04:50 04/12/19 04:50: Sodium 134.3 L, Potassium 4.15, Chloride 98.3, Carbon Dioxide 31.9 H, Anion Gap 8.25, BUN 26.3 H, Creatinine 1.53 H, Estimated GFR (MDRD) 33.00, BUN/Creatinine Ratio 17.18, Glucose 75.2, Calcium 8.20 L, Total Bilirubin 0.31, AST 18.6, ALT 13.4, Alkaline Phosphatase 46.5 L, Total Protein 6.24 L, Albumin 3.38 L, Globulin 2.86, Albumin/Globulin Ratio 1.18 04/12/19 04:50: WBC 10.73 H, RBC 3.54 L, Hgb 9.6 L, Hct 31.2 L D, MCV 88.1, MCH 27.1, MCHC 30.8 L, RDW Coeff of Monique 14.9 H, Plt Count 219, Immature Gran % (Au to) 0.7, Neut % (Auto) 71.3, Lymph % (Auto) 17.6, [place] % (Auto) 9.4, Eos % (Auto) 0.7, Baso % (Auto) 0.3, Immature Gran # (Auto) 0.1, Neut # (Auto) 7.7 H, Lymph # (Auto) 1.9, [place] # (Auto) 1.0, Eos # (Auto) 0.1, Baso # (Auto) 0.0 04/12/19 01:39: Digoxin 1.10 04/12/19 00:19: Urine Color Yellow, Urine Clarity Slightly, Urine pH 5.0, Ur Specific [place] >=1.030, Urine Protein Negative, Urine Glucose (UA) Negative, Urine Ketones Trace, Urine Blood Negative, Urine Nitrite Negative, Urine Bilirubin Negative, Urine Urobilinogen 0.2, Ur Leukocyte Esterase Negative, Urine Microscopic WBC 0-2, Ur Squamous Epith Cells 2-5, Hyaline Casts 0-2 04/11/19 22:30: Sodium 135.7, Potassium 4.59, Chloride 97.4 L, Carbon Dioxide 28.6, Anion Gap 14.29, BUN 26.3 H, Creatinine 1.57 H, Estimated GFR (MDRD) 32.00, BUN/Creatinine Ratio 16.75, Glucose 88.9, Calcium 9.15, Magnesium 1.88, Total Bilirubin 0.50, AST 21.2, ALT 17.2, Alkaline Phosphatase 53.4, Total Protein 7.55, Albumin 4.24, Globulin 3.31, Albumin/Globulin Ratio 1.28, Amylase 69.5, Lipase 87.6 04/11/19 22:30: WBC 13.83 H, RBC 4.26, Hgb 11.4 L, Hct 37.5, MCV 88.0, MCH 26.8 L, MCHC 30.4 L, RDW Coeff of Monique 15.0 H, Plt Count 287, Immature Gran % (Auto) 1.0, Neut % (Auto) 74.0, Lymph % (Auto) 14.9, [place] % (Auto) 9.0, Eos % (Auto) 0.8, Baso % (Auto) 0.3, Immature Gran # (Auto) 0.1, Neut # (Auto) 10.2 H, Lymph # (Auto) 2.1, [place] # (Auto) 1.3, Eos # (Auto) 0.1, Baso # (Auto) 0.0 ASSESSMENT: Please see below. 1. UTI 2. Acute dehydration 3. Diarrhea 4. Worsening dementia 5. Atrial fibrillation PLAN: 1. Slow fluids to 75cc 2. Rocephin 1 gram IV daily 3. INR today and then daily 4. Hold Metformin Plan and coordination of the patient's care discussed in the presence of Logistics Center Manager and nurse. SCRIBED BY: JAQUELINE LINDER Pediatric Licensed Practical Nurse scribed while in presence of service performed by Dr. Jacobson/Antoinette Martínez APRN on 04/12/19 ([id number])
[2019-04-12] MEDS ORDERED: NAMENDA PO SCH ×2 (09:00)
[2019-04-12] MEDS ORDERED: AMLODIPINE 10 MG PO SCH (09:00)
[2019-04-12] MEDS ORDERED: LANOXIN PO SCH (09:00)
[2019-04-12] MEDS ORDERED: BENAZEPRIL 40 MG PO SCH (09:00)
[2019-04-12] MEDS ORDERED: NORVASC PO SCH (09:00)
[2019-04-12] MEDS ORDERED: LOTENSIN PO SCH (09:00)
[2019-04-12] MEDS ORDERED: METFORMIN PO SCH (09:00)
[2019-04-12] MEDS ORDERED: ARICEPT PO SCH (09:00)
[2019-04-12] MEDS: ROCEPHIN 1 GM/50 ML D5W 1 GM/50 ML BAG IV SCH (09:42)
[2019-04-12] MEDS: NORVASC PO SCH (09:43)
[2019-04-12] MEDS: LOTENSIN PO SCH (09:43)
[2019-04-12] MEDS: NAMENDA PO SCH ×2 (09:43→20:37)
[2019-04-12] MEDS: LANOXIN PO SCH (09:44)
[2019-04-12] MEDS: ARICEPT PO SCH (09:45)
[2019-04-12] MEDS: HUMULIN R SUBCUT PRN ×3 (11:29→20:44)
[2019-04-12] MEDS ORDERED: NON-FORMULARY MEDICATION (Lovastatin [Lovastatin] 80 MG) PO SCH (17:00)
[2019-04-12] MEDS ORDERED: METFORMIN 1000 MG PO SCH (17:00)
[2019-04-12] MEDS ORDERED: COUMADIN PO SCH ×2 (17:00)
[2019-04-12] MEDS ORDERED: INSULIN GLARGINE U U SUBCUT SCH (17:00)
[2019-04-12] MEDS ORDERED: MEVACOR PO SCH (17:00)
[2019-04-12] MEDS: NICODERM 14 MG TD SCH (22:49)
[2019-04-13] MEDS: SODIUM CHLORIDE 1,000 ML IV SCH ×2 (00:04→09:16)
[2019-04-13] MEDS ORDERED: NEURONTIN PO SCH (06:30)
--- NOTE | 2019-04-13 09:01 | HP ---
DATE OF SERVICE: 04/12/19 HISTORY OF PRESENT ILLNESS: 78-year-old white female, who came to the Emergency Department on Friday the and then again on the night of the was diagnosed with a UTI on Friday presented earlier today with nausea, vomiting and diarrhea. She was placed on Augnentin from her previous ER visit. Urine culture preliminary and shows bacteria but sensitivity is pending. PAST MEDICAL HISTORY: COPD History of respiratory failure Atrial fibrillation Chronic anemia Diabetes mellitus Type 2 Obesity GERD Dyslipidemia Hypertension Dementia Neuropathy History of pulmonary nodules, sees Dr. Palmer PAST SURGICAL HISTORY: Back surgery times two Hysterectomy Bilateral total knee replacement REVIEW OF SYSTEMS: CONSTITUTIONAL: No night sweats. No fatigue, malaise, lethargy. No fever or chills. HEENT: Eyes: No visual changes. No eye pain. No eye discharge. ENT: No runny nose. No epistaxis. No sinus pain. No sore throat. No odynophagia. No ear pain. No congestion. RESPIRATORY: No cough, no congestion. No hemoptysis. No shortness of breath. CARDIOVASCULAR: No angina symptoms. No CHF symptoms. No atypical chest pain for CAD. No palpitations. No PND. No orthopnea. GASTROINTESTINAL: Positive for nausea, vomiting, and diarrhea. No abdominal pain. No constipation. No hematemesis. No hematochezia. GENITOURINARY: No urgency. No frequency. No dysuria. No hematuria. No obstructive symptoms. No discharge. No pain. No significant abnormal bleeding. MUSCULOSKELETAL: No musculoskeletal pain. No joint swelling. No arthritis. NEUROLOGICAL: No headache. No neck pain. No syncope. No seizures. No dizziness. PSYCHIATRIC: Not anxious. No depression. No suicidal thoughts. No homicidal thoughts. SKIN: No rash. No lesions. No wounds. ENDOCRINE: No unexplained weight loss. No weight gain. HEMATOLOGIC/LYMPHATIC: No anemia. No purpura. No petechiae. No prolonged or excessive bleeding. No palpable lymph nodes. 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 Nonsmoker. No alcohol or ilicit drug use. MEDICATIONS: (HOME) Furosemide 40 mg p.o. q.d a.c. Fenofibrate 54 mg p.o. daily Albuterol 90 mcg INH q.6h p.r.n. Gabapentin 300 mg p.o. q.d a.c. Digoxin 125 mcg p.o. daily Donepezil 10 mg p.o. daily Memantine 10 mg p.o. b.i.d. Tramadol 50 mg p.o. b.i.d. p.r.n. Warfarin 5 mg p.o. daily Warfarin 2 mg p.o. daily Insulin Glargine 60 unit SQ q.p.m. Ondansetron 4 mg p.o. q.6h p.r.n. Amoxicillin-pot Clavulanate one tab p.o. b.i.d. Benazepril 40 mg p.o. daily Metformin 2,000 mg p.o. daily with meal Lovastatin 80 mg p.o. q.p.m. Amlodipine 10 mg p.o. daily Metformin 1000 mg p.o. q.p.m. ALLERGIES: NKDA PHYSICAL EXAMINATION: GENERAL: Alert, oriented to person and place however not time. VITAL SIGNS: Temperature 100.4, heart rate 84, respirations 18, blood pressure 149/79, pulse ox 92%. HEENT: Head normocephalic, atraumatic. Eyes: Extraocular muscles are intact. Pupils are equal, round and reactive to light and accommodation. Ears: No lesions. Nose appeared normal. Throat: No exudate or erythema. NECK: Supple. No JVD, no carotid bruit. No lymphadenopathy or thyromegaly. LUNGS: Diminished breath sounds. Clear to auscultation. Percussion note normal. Chest symmetrical. HEART: Irregular heart rate. S1, S2, no S3. No murmur. No cyanosis or clubbing. No ascites. Pulses: Dorsalis pedis and posterior tibial pulses +1 to +2 bilaterally. ABDOMEN: Soft. Nontender. Bowel sounds active. No CVA tenderness. No mass felt. EXTREMITIES: No leg edema. Full range of motion of all extremities, equal. NEUROLOGIC: No focal deficit. Cranial nerves II through XII are grossly intact. No headache, no double vision or headache. SKIN: Not dry. Intact. Turgor - normal. LYMPHATIC: No palpable lymph nodes/no lymphedema. MUSCULOSKELETAL: Normal joints with no swelling. Muscle tone is normal. LABS: White count 10.73, hemoglobin 9.6, hematocrit 31.2, platelets 219. Sodium 134, potassium 4.1, BUN 26, creatinine 1.53. Repeat UA shows trace ketones, slight clarity. Chest x-ray shows lesion which is known. Again she sees pulmonology. ASSESSMENT: 1. ACUTE DEHYDRATION 2. URINARY TRACT INFECTION, SENSITIVITY AND CULTURE PENDING 3. DIARRHEA LIKELY RELATED TO AUGMENTIN 4. GASTRITIS LIKELY RELATED TO UTI VS MEDICATION PLAN: 1. We will admit to OBS. 2. Routine telemetry. 3. CBC, CMP. 4. INR now and daily. 5. Rocephin 1 gm IV daily. 6. Continue all home medications. 7. NS at 75 cc/hr IV. 8. Regular diet. 9. Oxygen at 1 to 2L. 10. Zofran 4 mg IV q.6hr p.r.n. for nausea. 11. Digoxin level. TIME SPENT: More than 70 minutes. MTDD
[2019-04-13] MEDS: LOTENSIN PO SCH (09:03)
[2019-04-13] MEDS: ROCEPHIN 1 GM/50 ML D5W 1 GM/50 ML BAG IV SCH ×2 (09:03→09:16)
[2019-04-13] MEDS: ARICEPT PO SCH (09:04)
[2019-04-13] MEDS: NAMENDA PO SCH (09:04)
[2019-04-13] MEDS: NORVASC PO SCH (09:04)
[2019-04-13] MEDS: LANOXIN PO SCH (09:04)
[2019-04-13] MEDS: NICODERM 14 MG TD SCH (09:05)
[2019-04-13 10:06] VITALS: BP 127/69; TEMP 97.8
--- NOTE | 2019-04-22 13:49 | PN ---
DATE OF SERVICE: 11/10/18 SUBJECTIVE: The patient was seen and examined. The patient has been hospitalized with diarrhea. The patient has been on Augmentin that might have caused the diarrhea. She had upper respiratory tract infection, was treated in the emergency room and was sent home two days ago. The patient's C. diff seems to be negative. WBC count is 13,000. The patient was seen and examined with the nurse practitioner. Condition is stable. The patient wants to go home. Appetite has improved. Diarrhea is much less. TIME SPENT: More than 30 minutes. Plan and coordination of the patient's care discussed in the presence of nurse. DEVAN
--- NOTE | 2019-04-22 14:20 | DS ---
DATE OF SERVICE: 04/13/19 FINAL DIAGNOSIS: 1. ACUTE GASTROENTERITIS POSSIBLY COLITIS 2. DEHYDRATION 3. SEVERE CHRONIC LUNG DISEASE 4. MASS IN THE LUNG 5. HYPERTENSION 6. CONGESTIVE HEART FAILURE 7. OBESITY DISCHARGE INSTRUCTIONS: 1. Advised to continue the same medications. 2. Advised not to take any Augmentin. 3. Do not take Metformin until , 04/15/19. 4. The patient will be seen in 7 days in the office. MEDICATIONS AT DISCHARGE: Furosemide 40 mg p.o. q.d a.c. Fenofibrate 54 mg p.o. daily Albuterol 90 mcg INH q.6h p.r.n. Gabapentin 300 mg p.o. q.d a.c. Digoxin 125 mcg p.o. daily Donepezil 10 mg p.o. daily Memantine 10 mg p.o. b.i.d. Tramadol 50 mg p.o. b.i.d. p.r.n. Warfarin 5 mg p.o. daily Warfarin 2 mg p.o. daily Insulin Glargine U-300 60 unit SQ q.p.m. Ondansetron (Zofran) 4 mg q.6h p.r.n. Benazepril 40 mg p.o. daily Metformin 2,000 mg p.o. daily with meal Lovastatin 80 mg p.o. q.p.m. Amlodipine 10 mg p.o. daily Metformin 1,000 mg p.o. q.p.m. DO NOT TAKE METFORMIN UNTIL March NEW PRESCRIPTIONS: NONE DISCONTINUED MEDICATIONS: Augmentin DIET INSTRUCTIONS: Resume as tolerated. ACTIVITY: Resume as tolerated. SMOKING: Former smoker DISEASE SPECIFIC EDUCATION: Medications Diet Activity HOSPITAL COURSE: This 78-year-old female was admitted through the Emergency Room with severe diarrhea. The patient was on Augmentin two days prior to hospitalization through the emergency room. Since then she has been having diarrhea. The patient was kept in the hospital and given IV fluids. Kidney function improved. Hydration status improved. Appetite improved. She was in a hurry to go home because of Yousif. Her cardiovascular/respiratory status stable with oxygen saturation more than 95% with a couple liters. Respiratory status is stable. No diarrhea noted. ADDENDUM: The mass that is described on CT scan 3.3 x 3.1 cm suspicious for lymphadenopathy or a mass. The patient is already followed by Dr. Trinidad and is a known finding. Condition at time of discharge stable. TIME SPENT: More than 60 minutes. KATHIAD
--- NOTE | 2019-04-23 13:32 | PN ---
DATE OF SERVICE: 04/13/19 - DISCHARGE NOTE SUBJECTIVE: The patient is up and about with help, breathing a lot better. Oxygen saturation 92% on room air. She is on home oxygen. Respiratory status and cardiovascular status stable with no evidence of CHF or acute bronchitis. Diarrhea has resolved. PHYSICAL EXAMINATION: HEENT: Head normocephalic, atraumatic. Eyes: Extraocular muscles are intact. Pupils are equal, round and reactive to light and accommodation. Ears: No lesions. Nose appeared normal. Throat: No exudate or erythema. NECK: Supple. No JVD, no carotid bruit. No lymphadenopathy or thyromegaly. LUNGS: Clear to auscultation. Percussion note normal. Chest symmetrical. HEART: S1, S2, no S3. No murmurs. No cyanosis or clubbing. No ascites. Pulses: Dorsalis pedis and posterior tibial pulses +1 to +2 bilaterally. ABDOMEN: Soft. Nontender. Bowel sounds active. No CVA tenderness. No mass felt. EXTREMITIES: No edema. Full range of motion of all extremities, equal. NEUROLOGIC: No focal deficit. Cranial nerves II through XII are grossly intact. No headache, no double vision or headache. SKIN: Not dry. Intact. Turgor - normal. LYMPHATIC: No palpable lymph nodes/no lymphedema. MUSCULOSKELETAL: Normal joints with no swelling. Muscle tone is normal. ASSESSMENT: 1. ACUTE GASTRITIS WITH COLITIS, RESOLVED LIKELY FROM AUGMENTIN. PLAN: 1. The patient was taken off Augmentin which was started in the Emergency Room for acute bronchitis. She has improved. 2. Findings on CT scan with mass discussed. The patient is stable. She doesn't want to pursue it any further. 3. Further discussion about this problem will take place as an outpatient in the office. The patient is to be seen within 7 days. TIME SPENT: More than 30 minutes. Plan and coordination of the patient's care discussed in the presence of nurse. DEVAN
== END 2019-04-13 10:45 | disposition home or self-care (01) ==
LOC: MEDSURG B 21:32 → ED 21:32 → MEDSURG B 04-12 01:40
PROVIDERS: ADMIT Internal Medicine; ATTEND Internal Medicine
DX: R63.0 Anorexia; E86.0 Dehydration; R19.7 Diarrhea, unspecified; E66.9 Obesity, unspecified; I50.9 Heart failure, unspecified; R11.2 Nausea with vomiting, unspecified; I10 Essential (primary) hypertension; F03.90 Unspecified dementia, unspecified severity, without behavioral disturbance, psychotic disturbance, mood disturbance, and anxiety; R50.9 Fever, unspecified; K29.00 Acute gastritis without bleeding; I48.0 Paroxysmal atrial fibrillation; N39.0 Urinary tract infection, site not specified; R53.1 Weakness; R53.81 Other malaise

== ENCOUNTER 2020-05-17 09:37 | Inpatient (IN) ==
[2020-05-17] MEDS ORDERED: ATROVENT HFA INHALER (PER PUFF-WITH SPACER) IH STA (10:18)
[2020-05-17] MEDS ORDERED: SOLU-MEDROL 125 MG IVP STA (10:18)
[2020-05-17] MEDS ORDERED: VENTOLIN HFA (PER PUFF-WITH SPACER) IH STA (10:18)
--- NOTE | 2020-05-17 10:30 | ED.PDOC ---
General ED Provider: Dr. ANURAG POZO MD Chief Complaint: Respiratory Complaint Stated Complaint: SOB Time Seen by Physician: 09:47 Mode of Arrival: Walk-In Information Source: Patient and Family Exam Limitations: No limitations Primary Care Provider: FRENCH JACOBSON Nursing and Triage Documentation Reviewed and Agree: Yes Does patient meet sepsis criteria?: No System Inflammatory Response Syndrome: Not Applicable Sepsis Protocol: For patient's 13 years and over: Temp is 96.8 and below OR 101 and greater Pulse >90 BPM Resp >20/minute Acutely Altered Mental Status Are patient's symptoms suggestive of a new infection, such as: -Pneumonia -Skin, Soft Tissue -Endocarditis -UTI -Bone, Joint Infection -Implantable Device -Acute Abdominal Infection -Wound Infection -Meningitis -Blood Stream Catheter Infection -Unknown Respiratory Complaint Exam Respiratory Complaint/Exam Onset/Duration: 5 days ago, mild chest congestion Symptoms Are: Still present Timing: Constant Initial Severity: Mild Current Severity: Moderate Location: Chest Aggravating: Reports None Alleviating: Reports Bronchodilators, Steriods and Antibiotics Associated Signs and Symptoms: Reports Dyspnea and Wheezing Related History: Reports Similar episode History of Healthcare-Acquired Pneumonia: No Home Oxygen Use: No Recent Stress Test: No Recent Echo/LV Function: No Current Antibiotic Use: Yes Respiratory Distress: Mild Inadequate Respiratory Effort: No Dysphagia Present: No Stridor Present: No JVD Present: No Accessory Muscle Use: No Retractions: Not Present Grunting Respirations: No Kussmaul Respirations: No Differential Diagnoses: CHF, Pulmonary Edema, COPD Exacerbation, SARS, Bronchos pasm, URI and Influenza Review of Systems Review Of Systems Constitutional: Reports No symptoms Eyes: Reports No symptoms Ears, Nose, Mouth, Throat: Reports No symptoms Respiratory: Reports No symptoms Cardiac: Reports Chest pain GI: Reports No symptoms : Reports No symptoms Musculoskeletal: Reports No symptoms Skin: Reports No symptoms Neurological: Reports No symptoms Endocrine: Reports No symptoms Hematologic/Lymphatic: Reports No symptoms All Other Systems: Reviewed and Negative [facility] Medical History A-fib Anxiety Arthritis CAD (coronary artery disease) COPD (chronic obstructive pulmonary disease) CVA (cerebral vascular accident) Depression Diabetes GERD (gastroesophageal reflux disease) Hyperlipidemia Hypertension Myocardial infarction Sensorineural hearing loss (SNHL) of both ears Social History Smoking and tobacco status: Former smoker Alcohol intake: never Number of children: 2 Number of grandchildren: 3 Highest education level completed: Associate degree: academic program Pets and animals: Yes Sexually active: No Do you think of yourself as: straight/heterosexual Current gender identity: female Current diet type/program: diabetic Well-balanced diet: rarely Caffeine: Yes Water heater temperature set < 120 degrees: Yes Working smoke detector in home: Yes Fire extinguisher in home: Yes Carbon monoxide detector in home: Yes Firearms in home: Yes Firearms unloaded and locked: Yes Surgical History History of hysterectomy Total knee replacement status Female Reproductive History Menstrual Hx Hysterectomy: Yes Hx Tubal Ligation: No Physical Exam Physical Exam Appearance: Reports No pain distress and Obese Ill-appearing: None Pain Distress: None Eyes: Reports ANTONINO, EOMI and Conjunctiva clear ENT: Reports Ears normal, Nose normal and Oropharynx normal Neck: Supple Respiratory: Reports Airway patent, Rhonchi and Wheezes Cardiovascular: Reports RRR, Pulses normal, No rub and No murmur GI/: Reports Soft, Nontender, No masses, Bowel sounds normal and No Organomegaly Musculoskeletal: Reports Normal strength, ROM intact, No edema and No calf tenderness Skin: Reports Warm, Dry and Normal color Neurological: Reports Sensation intact, Motor intact, Reflexes intact, Cranial nerves intact, Alert and Oriented Psychiatric: Reports Affect appropriate and Mood appropriate Critical Care Note Critical Care Note Total Critical Care Time (mins): 30 Course Course Hematology/Chemistry: 05/17/20 10:35 05/17/20 10:35 Orders, Labs, Meds: Lab Review 05/17/20 05/17/20 05/17/20 10:25 10:25 10:28 WBC RBC Hgb Hct MCV MCH MCHC RDW Coeff of Monique Plt Count Immature Gran % (Auto) Neut % (Auto) Lymph % (Auto) [place] % (Auto) Eos % (Auto) Baso % (Auto) Neut # (Auto) Lymph # (Auto) [place] # (Auto) Eos # (Auto) Baso # (Auto) Immature Gran # (Auto) PT INR APTT Puncture Site R rad Base Excess 3.1 H O2 Saturation 87.1 L ABG pH 7.35 ABG pCO2 52.0 H ABG pO2 56.0 L* ABG HCO3 28.7 H ABG Total CO2 30.3 H Adam Test Yes Hemoglobin 0.6 Oxyhemoglobin 88.0 L Carboxyhemoglobin 2.6 H Total Hemoglobin 10.3 L FiO2 % 21.0 Sodium Potassium Chloride Carbon Dioxide Anion Gap BUN Creatinine Estimated GFR (MDRD) BUN/Creatinine Ratio Glucose Lactic Acid Calcium Ferritin 38.30 Total Bilirubin AST ALT Alkaline Phosphatase Troponin I NT-Pro-B Natriuret Pep 2660.000 H Total Protein Albumin Globulin Albumin/Globulin Ratio Procalcitonin < 0.05 Digoxin 05/17/20 05/17/20 05/17/20 10:35 10:35 10:54 WBC 9.84 RBC 3.76 L Hgb 9.9 L Hct 32.7 L MCV 87.0 MCH 26.3 L MCHC 30.3 L RDW Coeff of Monique 18.8 H Plt Count 238 Immature Gran % (Auto) 1.1 Neut % (Auto) 86.6 H Lymph % (Auto) 6.1 L [place] % (Auto) 5.1 Eos % (Auto) 0.9 Baso % (Auto) 0.2 Neut # (Auto) 8.5 H Lymph # (Auto) 0.6 [place] # (Auto) 0.5 Eos # (Auto) 0.1 Baso # (Auto) 0.0 Immature Gran # (Auto) 0.1 PT INR APTT Puncture Site Base Excess O2 Saturation ABG pH ABG pCO2 ABG pO2 ABG HCO3 ABG Total CO2 Adam Test Hemoglobin Oxyhemoglobin Carboxyhemoglobin Total Hemoglobin FiO2 % Sodium 140.1 Potassium 4.30 Chloride 102.3 Carbon Dioxide 28.8 Anion Gap 13.30 BUN 20.0 H Creatinine 1.06 Estimated GFR (MDRD) 50.00 BUN/Creatinine Ratio 18.86 Glucose 173.7 H Lactic Acid 2.41 H Calcium 8.38 L Ferritin Total Bilirubin 0.34 AST 24.4 ALT 17.0 Alkaline Phosphatase 71.4 Troponin I < 0.012 NT-Pro-B Natriuret Pep Total Protein 7.12 Albumin 3.94 Globulin 3.18 Albumin/Globulin Ratio 1.23 Procalcitonin Digoxin 05/17/20 05/17/20 10:54 10:54 WBC RBC Hgb Hct MCV MCH MCHC RDW Coeff of Monique Plt Count Immature Gran % (Auto) Neut % (Auto) Lymph % (Auto) [place] % (Auto) Eos % (Auto) Baso % (Auto) Neut # (Auto) Lymph # (Auto) [place] # (Auto) Eos # (Auto) Baso # (Auto) Immature Gran # (Auto) PT 51.3 H INR 4.76 H* APTT 42.8 H Puncture Site Base Excess O2 Saturation ABG pH ABG pCO2 ABG pO2 ABG HCO3 ABG Total CO2 Adam Test Hemoglobin Oxyhemoglobin Carboxyhemoglobin Total Hemoglobin FiO2 % Sodium Potassium Chloride Carbon Dioxide Anion Gap BUN Creatinine Estimated GFR (MDRD) BUN/Creatinine Ratio Glucose Lactic Acid Calcium Ferritin Total Bilirubin AST ALT Alkaline Phosphatase Troponin I NT-Pro-B Natriuret Pep Total Protein Albumin Globulin Albumin/Globulin Ratio Procalcitonin Digoxin 0.94 Orders Category Date Time Status ABG DRAW REQUEST Stat CARDIO 05/17/20 10:20 Completed EKG-(ED ONLY) Stat CARDIO 05/17/20 10:18 Completed METERED DOSE INHALATION Routine CARDIO 05/17/20 10:20 Completed ABG COOX Stat LAB 05/17/20 10:28 Completed CBC W/ AUTO DIFF Stat LAB 05/17/20 10:35 Completed COMPREHENSIVE METABOLIC PANEL Stat LAB 05/17/20 10:35 Completed DIGOXIN Stat LAB 05/17/20 10:54 Completed FERRITIN Stat LAB 05/17/20 10:25 Completed LACTIC ACID Stat LAB 05/17/20 10:54 Completed NT-PROBNP Stat LAB 05/17/20 10:25 Completed PARTIAL THROMBOPLASTIN TIME Stat LAB 05/17/20 10:54 Completed PROCALCITONIN Urgent LAB 05/17/20 10:25 Completed PT WITH INR Stat LAB 05/17/20 10:54 Completed TROPONIN I Stat LAB 05/17/20 10:35 Completed Albuterol Inhaler(with Spacer) [Ventolin Hfa (Per Puff- MEDS 05/17/20 10:18 Discontinued with Spacer)] 2 puff IH ONCE STA Ceftriaxone/D5w 1 gm Premix [Rocephin 1 gm/50 ml D5w] MEDS 05/17/20 11:21 Discontinued 1 gm in 50 ml IV ONCE Ipratropium Inhaler(Spacer) [Atrovent Hfa Inhaler (Per MEDS 05/17/20 10:18 Discontinued Puff-with Spacer)] 2 puff IH ONCE STA Methylprednisolone Sod Succ/Pf [Solu-Medrol 125 mg] MEDS 05/17/20 10:18 Discontinued 125 [address] IVP ONCE STA CT CHEST W/O CONTRAST Stat RADS 05/17/20 10:18 Completed Medications Discontinued Medications Generic Name Dose Route Start Last Admin Trade Name Sarah PRN Reason Stop Dose Admin Albuterol Sulfate 2 puff 05/17/20 10:18 05/17/20 11:07 Albuterol Sulfate (Ventolin Hfa) 18 Gm 1 Puff With Spacer IH 05/17/20 10:19 2 puff ONCE STA Administration CEFTRIAXONE/D5W 1 GM PREMIX 1 gm in 50 mls @ 75 mls/hr 05/17/20 11:21 Rocephin 1 Gm/50 Ml D5w IV 05/17/20 12:00 ONCE STA Ipratropium Canon 2 puff 05/17/20 10:18 05/17/20 11:07 Ipratropium [place] 12.9 Gm Hfa Inhaler Per Puff With Spacer IH 05/17/20 10:19 2 puff ONCE STA Administration Methylprednisolone Sodium Succinate 125 mg 05/17/20 10:18 05/17/20 10:49 Methylprednisolone Sod Succ/Pf 125 Mg/2 Ml Vial IVP 05/17/20 10:19 125 mg ONCE STA Administration Vital Signs: Temp Pulse Resp BP Pulse Ox 05/17/20 09:39 97.9 F 79 18 130/66 88 L Discharge Plan Discharge Patient Disposition: ADMITTED INPATIENT Discharge Problem: COPD (chronic obstructive pulmonary disease) Qualifiers: COPD type: COPD with acute exacerbation Qualified Code(s): J44.1 - Chronic obstructive pulmonary disease with (acute) exacerbation Pneumonia Qualifiers: Pneumonia type: due to unspecified organism Laterality: right Lung location: upper lobe of lung Qualified Code(s): J18.9 - Pneumonia, unspecified organism ED Provider: ANURAG POZO Condition: Serious Physician Progress Note: []Pt was d/w Dr Jacobson and will be admitted. Please see admission orders.
[2020-05-17 10:45] LABS: BASOPHILS % (AUTO) 0.2 % (0.0-3.0); EOSINOPHILS # (AUTO) 0.1 K/ul (0.0-0.7); EOSINOPHILS % (AUTO) 0.9 % (0.0-7.0); HEMATOCRIT 32.7 % (37.0-47.0); HEMOGLOBIN 9.9 g/dl (12.0-16.0); IMMATURE GRANULOCYTE # (AUTO) 0.1 (0.0-1.0); IMMATURE GRANULOCYTE % (AUTO) 1.1 % (0.0-5.0); LYMPHOCYTES # (AUTO) 0.6 K/uL (0.60-3.4); LYMPHOCYTES % (AUTO) 6.1 (10.0-50.0); MEAN CORPUSCULAR HEMOGLOBIN 26.3 pg (27.0-31.0); MEAN CORPUSCULAR HGB CONC 30.3 (31.8-35.4); MONOCYTES # (AUTO) 0.5 K/uL (0.4-2.0); MONOCYTES % (AUTO) 5.1 (0-10); NEUTROPHILS # (AUTO) 8.5 K/ul (2.0-6.9); NEUTROPHILS % (AUTO) 86.6 % (42.2-75.2); PLATELET COUNT 238 10^3/uL (140-440); RDW COEFFICIENT OF VARIATION 18.8 % (11.6-14.8); RED BLOOD COUNT 3.76 10^6/ul (4.20-5.40); WHITE BLOOD COUNT 9.84 K/ul (4.6-10.2)
[2020-05-17 10:55] LABS: ALBUMIN 3.94 g/dL (3.5-5.0); ALKALINE PHOSPHATASE 71.4 U/L (53-141); ASPARTATE AMINO TRANSFERASE 24.4 U/L (14-36); BILIRUBIN,TOTAL 0.34 mg/dL (0.2-1.3); CALCIUM 8.38 mg/dL (8.4-10.2); CARBON DIOXIDE 28.8 mmol/L (22-30.0); CHLORIDE 102.3 mmol/L (98-107); CREATININE 1.06 mg/dL (0.60-1.30); GLUCOSE 173.7 mg/dL (74-106); SODIUM 140.1 mmol/L (134.5-145); TOTAL PROTEIN 7.12 g/dL (6.3-8.2)
[2020-05-17 10:57] LABS: ABG PH 7.35 (7.35-7.45)
[2020-05-17 11:11] LABS: TROPONIN I < 0.012 ng/ml (0.0000-0.120)
[2020-05-17] MEDS ORDERED: ROCEPHIN 1 GM/50 ML D5W 1 GM/50 ML BAG IV STA (11:21)
[2020-05-17 11:25] LABS: PARTIAL THROMBOPLASTIN TIME 42.8 SEC (23.9-40.0)
[2020-05-17 11:28] LABS: PROTHROMBIN TIME 51.3 SEC (9.3-11.0)
[2020-05-17 11:30] LABS: FERRITIN 38.3 ng/mL (11.1-264.0)
--- NOTE | 2020-05-17 11:56 | CT ---
EXAM: CT chest without contrast HISTORY: Shortness of breath COMPARISON: 04/09/2019 TECHNIQUE: CT chest performed without intravenous contrast. Coronal and sagittal reformatted images obtained. FINDINGS: Thoracic inlet unremarkable. Heart mildly enlarged. Trace pericardial fluid anteriorly. Aorta normal in caliber. Moderate atherosclerosis. Small hiatal hernia. Colonic diverticulosis is incompletely imaged. No acute abnormalities of the bones. Degenerative change in the spine. Lumba r spinal fusion hardware is incompletely imaged. Central airway patent. Small right pleural effusio n. Bilateral interlobular septal thickening and scattered ground-glass. Right upper lobe ground-gla ss infiltrate, suspicious for pneumonia. Redemonstration of spiculated right upper lobe mass that me asures 3.7 x 2.3 cm, similar to prior examination. Calcified lymph nodes, consistent with old granul omatous disease. Right hilar soft tissue fullness is very poorly characterized without contrast. Rig ht greater than left lower airway thickening may relate to small airways infection/inflammation. IMPRESSION: 1. Unexpected finding: Redemonstration of right upper lobe mass measuring 3.7 cm that remains suspi cious for malignancy. Recommend tissue sampling if not previously performed 2. Right upper lobe infiltrate, likely representing pneumonia. 3. Cardiomegaly with findings suggesting interstitial edema and small right pleural effusion. 4. Right greater than left lower airway thickening may relate to small airways infection/inflammatio n. 5. Right hilar soft tissue fullness is very poorly characterize without contrast. Lymphadenopathy c annot be excluded. All CT scans are performed using dose optimization techniques as appropriate to the performed exam an d include at least one of the following: Automated exposure control, adjustment of the mA and/or kV according t o size, and the use of iterative reconstruction technique.
[2020-05-17] MEDS: SODIUM CHLORIDE 1,000 ML IV SCH (13:53)
[2020-05-17] MEDS: ATROVENT HFA INHALER (PER PUFF-WITH SPACER) IH SCH ×2 (14:05→19:25)
[2020-05-17] MEDS: VENTOLIN HFA (PER PUFF-WITH SPACER) IH SCH ×2 (14:05→19:25)
[2020-05-17 14:58] LABS: BILIRUBIN,URINE Negative (NEGATIVE); CLARITY,URINE Clear (CLEAR); COLOR,URINE Yellow (YELLOW); GLUCOSE, URINE (UA) Negative (NEGATIVE); KETONES,URINE Negative (NEGATIVE); LEUKOCYTE ESTERASE ,URINE Trace (NEGATIVE); NITRITE,URINE Negative (NEGATIVE); PH,URINE 5.5 (5-9); PROTEIN,URINE Trace (NEGATIVE); URINE, BLOOD Trace-intact (NEGATIVE); UROBILINOGEN,URINE 0.2 (0.2)
[2020-05-17 15:09] LABS: MUCUS,URINE TRACE (NOT PRESENT)
[2020-05-17] MEDS: ZITHROMAX 500 MG in SODIUM CHLORIDE 250 ML IV SCH (15:55)
[2020-05-17 16:18] LABS: MOLECULAR FLU A NEGATIVE BY NAAT (NEGATIVE); MOLECULAR FLU B NEGATIVE BY NAAT (NEGATIVE)
[2020-05-17] MEDS: SOLU-MEDROL 125 MG IVP SCH ×2 (16:44→21:07)
[2020-05-17] MEDS: GLUCOPHAGE PO SCH (17:25)
[2020-05-17] MEDS: PRILOSEC PO SCH (17:25)
[2020-05-17] MEDS: MEVACOR PO SCH (17:25)
[2020-05-17] MEDS: LANTUS SUBCUT SCH (17:25)
[2020-05-17 20:19] VITALS: BMI 38.0
[2020-05-17] MEDS: NAMENDA PO SCH (20:53)
[2020-05-17] MEDS: NON-FORMULARY MEDICATION (Vit C,E-Zn-Coppr-Lutein-Zeaxan [Preservision Areds-2] 250-200-40 PO SCH (20:55)
[2020-05-17] MEDS ORDERED: NON-FORMULARY MEDICATION (Vit C,E-Zn-Coppr-Lutein-Zeaxan [Preservision Areds-2] 250-200-40 PO SCH (21:00)
[2020-05-17] MEDS ORDERED: ATIVAN PO SCH ×2 (21:00)
[2020-05-17] MEDS: [UNRECOGNIZED DRUG - OTHER] IH SCH (21:02)
[2020-05-18] MEDS: TYLENOL PO PRN (00:36)
[2020-05-18] MEDS: VENTOLIN HFA (PER PUFF-WITH SPACER) IH SCH ×4 (04:25→23:00)
[2020-05-18] MEDS: ATROVENT HFA INHALER (PER PUFF-WITH SPACER) IH SCH ×4 (04:25→23:00)
[2020-05-18] MEDS: SODIUM CHLORIDE 1,000 ML IV SCH ×2 (05:04→22:01)
[2020-05-18] MEDS: SOLU-MEDROL 125 MG IVP SCH ×3 (05:08→20:53)
[2020-05-18] MEDS: NEURONTIN PO SCH (05:31)
[2020-05-18] MEDS: LASIX TAB PO SCH (05:31)
[2020-05-18] MEDS: PRILOSEC PO SCH ×2 (05:32→17:38)
[2020-05-18 05:50] LABS: BASOPHILS % (AUTO) 0.2 % (0.0-3.0); HEMATOCRIT 29.8 % (37.0-47.0); HEMOGLOBIN 9.2 g/dl (12.0-16.0); IMMATURE GRANULOCYTE # (AUTO) 0.3 (0.0-1.0); IMMATURE GRANULOCYTE % (AUTO) 2.9 % (0.0-5.0); LYMPHOCYTES # (AUTO) 0.5 K/uL (0.60-3.4); LYMPHOCYTES % (AUTO) 4.9 (10.0-50.0); MEAN CORPUSCULAR HEMOGLOBIN 26.5 pg (27.0-31.0); MEAN CORPUSCULAR HGB CONC 30.9 (31.8-35.4); MEAN CORPUSCULAR VOLUME 85.9 fl (81.0-99.0); MONOCYTES # (AUTO) 0.3 K/uL (0.4-2.0); MONOCYTES % (AUTO) 2.3 (0-10); NEUTROPHILS # (AUTO) 9.7 K/ul (2.0-6.9); NEUTROPHILS % (AUTO) 89.7 % (42.2-75.2); PLATELET COUNT 241 10^3/uL (140-440); RDW COEFFICIENT OF VARIATION 18.9 % (11.6-14.8); RED BLOOD COUNT 3.47 10^6/ul (4.20-5.40); WHITE BLOOD COUNT 10.78 K/ul (4.6-10.2)
[2020-05-18 06:00] LABS: ALANINE AMINOTRANSFERASE 23.2 U/L (0-35); ALBUMIN 3.98 g/dL (3.5-5.0); ALKALINE PHOSPHATASE 65.1 U/L (53-141); ASPARTATE AMINO TRANSFERASE 27.7 U/L (14-36); BILIRUBIN,TOTAL 0.28 mg/dL (0.2-1.3); BLOOD UREA NITROGEN 24.7 mg/dL (7-17); CALCIUM 8.53 mg/dL (8.4-10.2); CARBON DIOXIDE 24.9 mmol/L (22-30.0); CHLORIDE 101.5 mmol/L (98-107); CREATININE 1.05 mg/dL (0.60-1.30); GLUCOSE 263.8 mg/dL (74-106); POTASSIUM 4.4 mmol/L (3.5-5.1); SODIUM 136.9 mmol/L (134.5-145); TOTAL PROTEIN 6.97 g/dL (6.3-8.2)
[2020-05-18] MEDS: ROCEPHIN 1 GM/50 ML D5W 1 GM/50 ML BAG IV SCH (08:57)
[2020-05-18] MEDS: [UNRECOGNIZED DRUG - OTHER] IH SCH ×2 (09:00→20:13)
[2020-05-18] MEDS: LOTENSIN PO SCH (09:01)
[2020-05-18] MEDS: GLUCOPHAGE PO SCH ×2 (09:01→17:38)
[2020-05-18] MEDS: ZOLOFT PO SCH (09:02)
[2020-05-18] MEDS: ATIVAN PO SCH ×2 (09:02→20:13)
[2020-05-18] MEDS: TRIGLIDE PO SCH (09:02)
[2020-05-18] MEDS: LANOXIN PO SCH (09:02)
[2020-05-18] MEDS: ARICEPT PO SCH (09:02)
[2020-05-18] MEDS: NORVASC PO SCH (09:02)
[2020-05-18] MEDS: NAMENDA PO SCH ×2 (09:02→20:12)
[2020-05-18 09:22] LABS: PROTHROMBIN TIME 57.8 SEC (9.3-11.0)
--- NOTE | 2020-05-18 09:22 | PCM.PROG ---
Attending Provider: ATTENDING PROVIDER: Dr. FRENCH EID This patient is seen with Antoinette Martínez, Nurse Practitioner. DATE OF SERVICE: 05/18/20 SUBJECTIVE: This 79 year old /WHITE F was hospitalized 05/17/20. The patient is sitting in chair resting comfortably. She is pleasantly confused and is anxious as usual. She states she still has a cough and is not feeling well. REVIEW OF SYSTEMS: CONSTITUTIONAL: No night sweats. No fatigue, malaise, lethargy. No fever or chills. HEENT: Eyes: No visual changes. No eye pain. No eye discharge. ENT: No runny nose. No epistaxis. No sinus pain. No odynophagia. No congestion. RESPIRATORY: Positive for cough and shortness of breath. No hemoptysis. CARDIOVASCULAR: No angina symptoms. No CHF symptoms. No atypical chest pain for CAD. No palpitations. No orthopnea.. GASTROINTESTINAL: No abdominal pain. No nausea or vomiting. No diarrhea or constipation. No hematemesis. No hematochezia. GENITOURINARY: No urgency. No frequency. No dysuria. No hematuria. No obstructive symptoms. No discharge. No pain. No significant abnormal bleeding. MUSCULOSKELETAL: No musculoskeletal pain; no joint swelling. NEUROLOGICAL: Awake, alert, confused. No headache. No neck pain. No syncope. No seizures. No dizziness. PSYCHIATRIC: Anxious. No depression. No suicidal thoughts. No homicidal thoughts. SKIN: No rash. No lesions. No wounds. ENDOCRINE: No unexplained weight loss. No weight gain. HEMATOLOGIC/LYMPHATIC: No anemia. No purpura. No petechiae. No prolonged or excessive bleeding. No palpable lymph nodes. PHYSICAL EXAMINATION: GENERAL: The patient is awake, alert confused lying/sitting in bed in no distress. VITAL SIGNS: Temperature 97.8 F, Pulse 77, Respiratory Rate 20, BP 143/88, Pulse Ox 96% HEENT: Head normocephalic, atraumatic. Eyes: Extraocular muscles are intact. Pupils are equal, round and reactive to light and accommodation. Ears: No lesions. Nose appeared normal. Throat: No exudate or erythema. NECK: Supple. No JVD, no carotid bruit. No lymphadenopathy or thyromegaly. LUNGS: Diminished breath sounds with bilateral wheezing. Percussion note normal. Chest symmetrical. HEART: S1, S2, no S3. No murmurs. No cyanosis or clubbing. No ascites. Pulses: Dorsalis pedis and posterior tibial pulses +1 to +2 both sides. ABDOMEN: Soft. Non-tender. Bowel sounds active. No CVA tenderness. No mass felt. EXTREMITIES: No edema. Full range of motion of all extremities, equal. NEUROLOGIC: No focal deficit. Cranial nerves II through XII are grossly intact. No headache, no double vision or headache. SKIN: Not dry. Intact. Turgor-normal. LYMPHATIC: No palpable lymph nodes/no lymphedema. MUSCULOSKELETAL: Normal joints with no swelling. Muscle tone is normal. LAB REVIEW: 05/18/20 05:10 05/18/20 05:10 05/18/20 05:10: Sodium 136.9, Potassium 4.40, Chloride 101.5, Carbon Dioxide 24.9, Anion Gap 14.90, BUN 24.7 H, Creatinine 1.05, Estimated GFR (MDRD) 51.00, BUN/Creatinine Ratio 23.52, Glucose 263.8 H D, Calcium 8.53, Total Bilirubin 0.28, AST 27.7, ALT 23.2, Alkaline Phosphatase 65.1, Total Protein 6.97, Albumin 3.98, Globulin 2.99, Albumin/Globulin Ratio 1.33 05/18/20 05:10: WBC 10.78 H, RBC 3.47 L, Hgb 9.2 L, Hct 29.8 L, MCV 85.9, MCH 26.5 L, MCHC 30.9 L, RDW Coeff of Monique 18.9 H, Plt Count 241, Immature Gran % (Auto) 2.9, Neut % (Auto) 89.7 H, Lymph % (Auto) 4.9 L, [place] % (Auto) 2.3, Eos % (Auto) 0.0, Baso % (Auto) 0.2, Neut # (Auto) 9.7 H, Lymph # (Auto) 0.5 L, [place] # (Auto) 0.3 L, Eos # (Auto) 0.0, Baso # (Auto) 0.0, Immature Gran # (Auto) 0.3 05/17/20 15:45: Influ A Molecular Assay Negative by naat, Influ B Molecular Assay Negative by naat 05/17/20 14:45: Urine Color Yellow, Urine Clarity Clear, Urine pH 5.5, Ur Specific [place] 1.025, Urine Protein Trace H, Urine Glucose (UA) Negative, Urine Ketones Negative, Urine Blood Trace-intact H, Urine Nitrite Negative, Urine Bilirubin Negative, Urine Urobilinogen 0.2, Ur Leukocyte Esterase Trace H, Urine Microscopic RBC 2-5, Urine Microscopic WBC 10-20, Ur Squamous Epith Cells 5-10, Urine Mucus Trace 05/17/20 10:54: Digoxin 0.94 05/17/20 10:54: PT 51.3 H, INR 4.76 H*, APTT 42.8 H 05/17/20 10:54: Lactic Acid 2.41 H 05/17/20 10:35: Sodium 140.1, Potassium 4.30, Chloride 102.3, Carbon Dioxide 28.8, Anion Gap 13.30, BUN 20.0 H, Creatinine 1.06, Estimated GFR (MDRD) 50.00, BUN/Creatinine Ratio 18.86, Glucose 173.7 H, Calcium 8.38 L, Total Bilirubin 0.34, AST 24.4, ALT 17.0, Alkaline Phosphatase 71.4, Troponin I < 0.012, Total Protein 7.12, Albumin 3.94, Globulin 3.18, Albumin/Globulin Ratio 1.23 05/17/20 10:35: WBC 9.84, RBC 3.76 L, Hgb 9.9 L, Hct 32.7 L, MCV 87.0, MCH 26.3 L, MCHC 30.3 L, RDW Coeff of Monique 18.8 H, Plt Count 238, Immature Gran % (Auto) 1.1, Neut % (Auto) 86.6 H, Lymph % (Auto) 6.1 L, [place] % (Auto) 5.1, Eos % (Auto) 0.9, Baso % (Auto) 0.2, Neut # (Auto) 8.5 H, Lymph # (Auto) 0.6, [place] # (Auto) 0.5, Eos # (Auto) 0.1, Baso # (Auto) 0.0, Immature Gran # (Auto) 0.1 05/17/20 10:28: Puncture Site R rad, Base Excess 3.1 H, O2 Saturation 87.1 L, ABG pH 7.35, ABG pCO2 52.0 H, ABG pO2 56.0 L*, ABG HCO3 28.7 H, ABG Total CO2 30.3 H, Adam Test Yes, Hemoglobin 0.6, Oxyhemoglobin 88.0 L, Carboxyhemoglobin 2.6 H, Total Hemoglobin 10.3 L, FiO2 % 21.0 05/17/20 10:25: Ferritin 38.30, NT-Pro-B Natriuret Pep 2660.000 H 05/17/20 10:25: Procalcitonin < 0.05 ASSESSMENT: Please see below. 1. Right lobar pneumonia 2. COPD 3. Diabetes mellitus type 2 4. History of lung mass for which she sees Dr. Palmer. 5. Dementia. PLAN: 1. Increase Ativan b.i.d. 1 mg. 2. Continue antibiotics and steroids. 3. D/C IV fluids when current bag is finished. Plan and coordination of the patient's care discussed in the presence of Wire Drawing Machine Tender and nurse. CONDITION: Stable. SCRIBED BY: SERAVNDO CANALES Hoop Bender Tank scribed while in presence of service performed by Kiara Eid/Antoinette Martínez APRN on 05/18/20 ([id number])
[2020-05-18] MEDS: ZITHROMAX 500 MG in SODIUM CHLORIDE 250 ML IV SCH (10:23)
[2020-05-18] MEDS: MEVACOR PO SCH (17:38)
[2020-05-18] MEDS: LANTUS SUBCUT SCH (17:38)
[2020-05-18] MEDS: NON-FORMULARY MEDICATION (Vit C,E-Zn-Coppr-Lutein-Zeaxan [Preservision Areds-2] 250-200-40 PO SCH (20:17)
[2020-05-19] MEDS: ATROVENT HFA INHALER (PER PUFF-WITH SPACER) IH SCH ×4 (04:35→23:55)
[2020-05-19] MEDS: VENTOLIN HFA (PER PUFF-WITH SPACER) IH SCH ×4 (04:35→23:55)
[2020-05-19 05:31] LABS: BASOPHILS % (AUTO) 0.1 % (0.0-3.0); HEMATOCRIT 31.2 % (37.0-47.0); HEMOGLOBIN 9.6 g/dl (12.0-16.0); IMMATURE GRANULOCYTE # (AUTO) 0.3 (0.0-1.0); IMMATURE GRANULOCYTE % (AUTO) 1.8 % (0.0-5.0); LYMPHOCYTES # (AUTO) 0.5 K/uL (0.60-3.4); LYMPHOCYTES % (AUTO) 3.2 (10.0-50.0); MEAN CORPUSCULAR HEMOGLOBIN 26.7 pg (27.0-31.0); MEAN CORPUSCULAR HGB CONC 30.8 (31.8-35.4); MEAN CORPUSCULAR VOLUME 86.7 fl (81.0-99.0); MONOCYTES # (AUTO) 0.4 K/uL (0.4-2.0); MONOCYTES % (AUTO) 2.6 (0-10); NEUTROPHILS # (AUTO) 13.7 K/ul (2.0-6.9); NEUTROPHILS % (AUTO) 92.3 % (42.2-75.2); PLATELET COUNT 257 10^3/uL (140-440); WHITE BLOOD COUNT 14.82 K/ul (4.6-10.2)
[2020-05-19 05:48] LABS: ALANINE AMINOTRANSFERASE 21.8 U/L (0-35); ALBUMIN 4.06 g/dL (3.5-5.0); ALKALINE PHOSPHATASE 60.1 U/L (53-141); ASPARTATE AMINO TRANSFERASE 25.8 U/L (14-36); BILIRUBIN,TOTAL 0.3 mg/dL (0.2-1.3); BLOOD UREA NITROGEN 34.9 mg/dL (7-17); CALCIUM 8.81 mg/dL (8.4-10.2); CARBON DIOXIDE 23.9 mmol/L (22-30.0); CHLORIDE 101.5 mmol/L (98-107); CREATININE 1.1 mg/dL (0.60-1.30); GLUCOSE 223.6 mg/dL (74-106); POTASSIUM 4.52 mmol/L (3.5-5.1); PROTHROMBIN TIME 25.9 SEC (9.3-11.0); SODIUM 135.9 mmol/L (134.5-145); TOTAL PROTEIN 6.94 g/dL (6.3-8.2)
[2020-05-19] MEDS: SOLU-MEDROL 125 MG IVP SCH ×3 (06:00→21:13)
[2020-05-19] MEDS: NEURONTIN PO SCH (06:11)
[2020-05-19] MEDS: LASIX TAB PO SCH (06:11)
[2020-05-19] MEDS: PRILOSEC PO SCH ×2 (06:16→16:33)
--- NOTE | 2020-05-19 09:29 | PCM.PROG ---
Attending Provider: ATTENDING PROVIDER: Dr. FRENCH JACOBSON DATE OF SERVICE: 05/19/20 SUBJECTIVE: This 79 year old /WHITE F was hospitalized 05/17/20 with pneumonia. She has severe chronic lung disease with bronchitis treated with antibiotics. She is improved and is up and about with help. Appetite is improved. She is talking a lot and in full sentences. REVIEW OF SYSTEMS: CONSTITUTIONAL: No night sweats. No fatigue, malaise, lethargy. No fever or chills. HEENT: Eyes: No visual changes. No eye pain. No eye discharge. ENT: No runny nose. No epistaxis. No sinus pain. No odynophagia. No congestion. RESPIRATORY: No cough, no congestion. No hemoptysis. No shortness of breath. CARDIOVASCULAR: No angina symptoms. No CHF symptoms. No atypical chest pain for CAD. No palpitations. No orthopnea.. GASTROINTESTINAL: Appetite is improved. No abdominal pain. No nausea or vo miting. No diarrhea or constipation. No hematemesis. No hematochezia. GENITOURINARY: No urgency. No frequency. No dysuria. No hematuria. No obstructive symptoms. No discharge. No pain. No significant abnormal bleeding. MUSCULOSKELETAL: No musculoskeletal pain; no joint swelling. NEUROLOGICAL: Awake, alert, oriented to time, place and person. No headache. No neck pain. No syncope. No seizures. No dizziness. PSYCHIATRIC: Not anxious. No depression. No suicidal thoughts. No homicidal thoughts. SKIN: No rash. No lesions. No wounds. ENDOCRINE: No unexplained weight loss. No weight gain. HEMATOLOGIC/LYMPHATIC: No anemia. No purpura. No petechiae. No prolonged or excessive bleeding. No palpable lymph nodes. PHYSICAL EXAMINATION: GENERAL: The patient is awake, alert and oriented, lying/sitting in bed in no distress. VITAL SIGNS: Temperature 97.2 F, Pulse 79, Respiratory Rate 18, BP 137/73, Pulse Ox 94% HEENT: Head normocephalic, atraumatic. Eyes: Extraocular muscles are intact. Pupils are equal, round and reactive to light and accommodation. Ears: No lesi ons. Nose appeared normal. Throat: No exudate or erythema. NECK: Supple. No JVD, no carotid bruit. No lymphadenopathy or thyromegaly. LUNGS: Decreased breath sounds with mild wheeze. Good air entry. Percussion note normal. Chest symmetrical. HEART: S1, S2, no S3. No murmurs. No cyanosis or clubbing. No ascites. Pulses: Dorsalis pedis and posterior tibial pulses +1 to +2 both sides. ABDOMEN: Soft. Non-tender. Bowel sounds active. No CVA tenderness. No mass felt. EXTREMITIES: No edema. Full range of motion of all extremities, equal. NEUROLOGIC: No focal deficit. Cranial nerves II through XII are grossly intact. No headache, no double vision or headache. SKIN: Warm and dry. Intact. Turgor-normal. LYMPHATIC: No palpable lymph nodes/no lymphedema. MUSCULOSKELETAL: Normal joints with no swelling. Muscle tone is normal. LAB REVIEW: 05/19/20 05:20 05/19/20 05:20 05/19/20 05:20: Sodium 135.9, Potassium 4.52, Chloride 101.5, Carbon Dioxide 23.9, Anion Gap 15.02, BUN 34.9 H, Creatinine 1.10, Estimated GFR (MDRD) 48.00, BUN/Creatinine Ratio 31.72, Glucose 223.6 H, Calcium 8.81, Total Bilirubin 0.30, AST 25.8, ALT 21.8, Alkaline Phosphatase 60.1, Total Protein 6.94, Albumin 4.06, Globulin 2.88, Albumin/Globulin Ratio 1.40 05/19/20 05:20: PT 25.9 H D, INR 2.42 D 05/19/20 05:20: WBC 14.82 H, RBC 3.60 L, Hgb 9.6 L, Hct 31.2 L, MCV 86.7, MCH 26.7 L, MCHC 30.8 L, RDW Coeff of Monique 19.0 H, Plt Count 257, Immature Gran % (Auto) 1.8, Neut % (Auto) 92.3 H, Lymph % (Auto) 3.2 L, [place] % (Auto) 2.6, Eos % (Auto) 0.0, Baso % (Auto) 0.1, Neut # (Auto) 13.7 H, Lymph # (Auto) 0.5 L, [place] # (Auto) 0.4, Eos # (Auto) 0.0, Baso # (Auto) 0.0, Immature Gran # (Auto) 0.3 05/18/20 09:20: Adenovirus (PCR) Not detected, B. pertussis DNA (PCR) Not detected, B.parapertussis DNA PCR Not detected, C. pneumoniae DNA (PCR) Not detected, Coronavirus OC43 (PCR) Not detected, Coronavirus HKU1 (PCR) Not dete cted, Coronavirus 229E (PCR) Not detected, Coronavirus NL63 (PCR) Not detected, Human Metapneumovir PCR Not detected, Influenza Type A (PCR) Not detected, Influenza B (RT-PCR) Not detected, M. pneumoniae (PCR) Not detected, Parainfluenza 1 (PCR) Not detected, Parainfluenza 2 (PCR) Not detected, Para influenza 3 (PCR) Not detected, Parainfluenza 4 (PCR) Not detected, RSV (PCR) Not detected, Entero/Rhino (PCR) Not detected, SARS-CoV-2 (PCR) Not detected 05/18/20 05:10: PT 57.8 H D, INR 5.36 H* ASSESSMENT: 1. Acute pneumonitis with severe chronic lung disease with respiratory failure. PLAN: 1. Continue steroids, antibiotics and inhalers. Plan and coordination of the patient's care discussed in the presence of Ur Coordinator and nurse. CONDITION: Stable SCRIBED BY: SERVANDO CANALES Sericulture Teacher scribed while in presence of service performed by Dr. FRENCH JACOBSON on 05/19/20 ([id number])
[2020-05-19] MEDS: ROCEPHIN 1 GM/50 ML D5W 1 GM/50 ML BAG IV SCH (09:42)
[2020-05-19] MEDS: LOTENSIN PO SCH (09:43)
[2020-05-19] MEDS: LANOXIN PO SCH (09:43)
[2020-05-19] MEDS: ZOLOFT PO SCH (09:44)
[2020-05-19] MEDS: NAMENDA PO SCH ×2 (09:44→20:06)
[2020-05-19] MEDS: GLUCOPHAGE PO SCH ×2 (09:44→16:33)
[2020-05-19] MEDS: ARICEPT PO SCH (09:44)
[2020-05-19] MEDS: NORVASC PO SCH (09:44)
[2020-05-19] MEDS: TRIGLIDE PO SCH (09:44)
[2020-05-19] MEDS: ATIVAN PO SCH ×2 (09:44→20:06)
[2020-05-19] MEDS: [UNRECOGNIZED DRUG - OTHER] IH SCH ×2 (09:45→20:13)
[2020-05-19] MEDS: ZITHROMAX 500 MG in SODIUM CHLORIDE 250 ML IV SCH (10:11)
--- NOTE | 2020-05-19 10:55 | HP ---
DATE OF SERVICE: 05/17/2020 REASON FOR HOSPITALIZATION/HISTORY OF PRESENT ILLNESS: This is a 79 year old white female who is presenting with shortness of breath, cough and congestion. She was tested as an outpatient through [facility] for COVID on the which was found to be negative. She reports that she has had fever at home. She had started a Z-pack and Prednisone on the . PAST MEDICAL HISTORY: Anemia Mass of the right lung, see Dr. Palmer Advancing dementia COPD, see Dr. Palmer Left sciatica Diabetes mellitus type 2, last A1c 6.9 on 01/08 Hypertension Atrial fibrillation on Coumadin History of CVA Dyslipidemia Macrular degeneration Osteoarthritis CVA Dyslipidemia Chronic kidney disease stage 2 PAST SURGICAL HISTORY: Status post back surgery by Dr. Bernal Heart Cath 10/03 Dr. Caceres Bilateral knee replacement, Dr. Mima Eid Colonoscopy 03/10, Dr. Fernandez REVIEW OF SYSTEMS: CONSTITUTIONAL: No night sweats. No fatigue, malaise, lethargy. Fever. HEENT: Eyes: No visual changes. No eye pain. No eye discharge. ENT: No runny nose. No epistaxis. No sinus pain. No sore throat. No odynophagia. No ear pain. No congestion. RESPIRATORY: Cough, no congestion. No hemoptysis. Shortness of breath. CARDIOVASCULAR: No angina symptoms. No CHF symptoms. No atypical chest pain for CAD. No palpitations. No PND. No orthopnea. GASTROINTESTINAL: No abdominal pain. No nausea or vomiting. No diarrhea or constipation. No hematemesis. No hematochezia. GENITOURINARY: No urgency. No frequency. No dysuria. No hematuria. No obstructive symptoms. No discharge. No pain. No significant abnormal bleeding. MUSCULOSKELETAL: No musculoskeletal pain. No joint swelling. No arthritis. NEUROLOGICAL: No headache. No neck pain. No syncope. No seizures. No dizziness. PSYCHIATRIC: Not anxious. No depression. No suicidal thoughts. No homicidal thoughts. SKIN: No rash. No lesions. No wounds. ENDOCRINE: No unexplained weight loss. No weight gain. HEMATOLOGIC/LYMPHATIC: No anemia. No purpura. No petechiae. No prolonged or excessive bleeding. No palpable lymph nodes. PERSONAL/FAMILY/SOCIAL HISTORY: She is . She lives with her jail button sawyer. She is a former smoker. No alcohol or illicit drug use. Due to her advancing dementia she does require the assistance at least one or two people for ADL's. MEDICATIONS: Furosemide 40mg PO QDAC Fenofibrate 54mg PO daily Ventolin 90mcg Inhalation Q 6 hours PRN Neurontin 300mg PO QDAC Digoxin 125mcg PO Daily Aricept 10mg PO daily Namenda 10mg PO BID Tramadol 50mg PO BID PRN Warfarin 5mg PO daily Warfarin 2mg PO daily Toujeo Solostar 45 units SQ QPM Augmentin 500-125mg one tablet PO BID Benazepril 40mg PO daily Lovastatin 80mg PO QPM Norvasc 10mg daily Lorazepam 1mg PO bedtime Omeprazole 20mg PO BID Sertraline 50mg PO Q DAY PreserVision 1 tablet PO bedtime Prednisone 10mg PO BID Azithromycin 250mg PO daily Advair 100-50mch one inhalation BID ALLERGIES: No known drug allergies PHYSICAL EXAMINATION: VITAL SIGNS: Temperature 97.9, heart rate 79, respiratory rate 18, blood pressure 130/66 and pulse ox 88%. HEENT: Head normocephalic, atraumatic. Eyes: Extraocular muscles are intact. Pupils are equal, round and reactive to light and accommodation. Ears: No lesions. Nose appeared normal. Throat: No exudate or erythema. NECK: Supple. No JVD, no carotid bruit. No lymphadenopathy or thyromegaly. LUNGS: Diminished breath sounds bilaterally with bilateral inspiratory and expiratory wheezing. Clear to auscultation. Percussion note normal. Chest symmetrical. HEART: S1, S2, no S3. No murmur. No cyanosis or clubbing. No ascites. Pulses: Dorsalis pedis and posterior tibial pulses +1 to +2 bilaterally. ABDOMEN: Soft. Nontender. Bowel sounds active. No CVA tenderness. No mass felt. EXTREMITIES: No edema. Full range of motion of all extremities, equal. NEUROLOGIC: No focal deficit. Cranial nerves II through XII are grossly intact. No headache, no double vision or headache. SKIN: Not dry. Intact. Turgor - normal. LYMPHATIC: No palpable lymph nodes/no lymphedema. MUSCULOSKELETAL: Normal joints with no swelling. Muscle tone is normal. LABS: WBS 9.8, hgb 9.9. hct 32.7, plt count 238, sodium 140, potassium 4.3, BUN 20, creatinine 1.05, glucose 173, ABGs on room air pH 7.35, pCo2 52, pO2 56. U/A shows trace Proteins, trace blood, trace leuks. Rapid flu is negative. Lactic acid 2.4. Pro BNP 2,660. INR 4.76. CT of the chest shows re-demonstration of right upper lobe mass measuring 3.7cm suspicious for malignancy. She does see Dr. Palmer, right upper lobe infiltrate representing pneumonia. Cardiomegaly right greater than left lower airway thickening. ASSESSMENT: 1. Right upper lobe pneumonia 2. COPD 3. Acute respiratory failure 4. Atrial fibrillation on Coumadin 5. Diabetes Mellitus type 2 6. Chronic kidney disease stage 7. History of right upper lobe mass which is followed by Dr. Palmer 8. Dementia PLAN: 1. We will admit 2. Routine telemetry orders 3. CBC and CMP and INR daily 4. Hold Coumadin 5. Continue other home medications 6. Rocephin 1 gram IV daily 7. Zithromax 500mg IV daily times three days 8. Solu-Cortef 125mg IV Q 8 hours 9. Sliding scale for insulin coverage 10.Oxygen at 1-2 liters PRN keep sats greater than 92 11.Regular diet 12.Continue home medications except for Coumadin 13.COVID test by PCR We will follow closely. TIME SPENT: More than 70 minutes. MTDD
[2020-05-19] MEDS: SODIUM CHLORIDE 1,000 ML IV SCH (14:02)
[2020-05-19] MEDS: MEVACOR PO SCH (16:33)
[2020-05-19] MEDS ORDERED: NON-FORMULARY MEDICATION SUBCUT SCH (17:00)
[2020-05-19] MEDS ORDERED: COUMADIN PO STA ×2 (19:28)
[2020-05-19] MEDS: NON-FORMULARY MEDICATION (Vit C,E-Zn-Coppr-Lutein-Zeaxan [Preservision Areds-2] 250-200-40 PO SCH (20:16)
[2020-05-20] MEDS: VENTOLIN HFA (PER PUFF-WITH SPACER) IH SCH ×4 (04:55→23:15)
[2020-05-20] MEDS: ATROVENT HFA INHALER (PER PUFF-WITH SPACER) IH SCH ×4 (04:55→23:15)
[2020-05-20 05:17] LABS: HEMATOCRIT 28.2 % (37.0-47.0); HEMOGLOBIN 8.7 g/dl (12.0-16.0); MEAN CORPUSCULAR HEMOGLOBIN 26.6 pg (27.0-31.0); MEAN CORPUSCULAR HGB CONC 30.9 (31.8-35.4); MEAN CORPUSCULAR VOLUME 86.2 fl (81.0-99.0); PLATELET COUNT 238 10^3/uL (140-440); RDW COEFFICIENT OF VARIATION 18.9 % (11.6-14.8); RED BLOOD COUNT 3.27 10^6/ul (4.20-5.40); WHITE BLOOD COUNT 12.91 K/ul (4.6-10.2)
[2020-05-20 05:30] LABS: ALANINE AMINOTRANSFERASE 21.5 U/L (0-35); ALBUMIN 3.7 g/dL (3.5-5.0); ALKALINE PHOSPHATASE 53.2 U/L (53-141); ANISOCYTOSIS NOT PRESENT (NOT PRESENT); ASPARTATE AMINO TRANSFERASE 22.1 U/L (14-36); BILIRUBIN,TOTAL 0.29 mg/dL (0.2-1.3); BLOOD UREA NITROGEN 44.6 mg/dL (7-17); CALCIUM 8.64 mg/dL (8.4-10.2); CARBON DIOXIDE 24.5 mmol/L (22-30.0); CREATININE 1.4 mg/dL (0.60-1.30); GLUCOSE 295.1 mg/dL (74-106); POTASSIUM 4.39 mmol/L (3.5-5.1); SODIUM 133.5 mmol/L (134.5-145); TOTAL PROTEIN 6.38 g/dL (6.3-8.2)
[2020-05-20 05:34] LABS: PROTHROMBIN TIME 16.7 SEC (9.3-11.0)
[2020-05-20] MEDS: NEURONTIN PO SCH (05:43)
[2020-05-20] MEDS: PRILOSEC PO SCH ×2 (05:44→16:58)
[2020-05-20] MEDS: LASIX TAB PO SCH (05:44)
[2020-05-20] MEDS: SOLU-MEDROL 125 MG IVP SCH ×3 (05:52→20:39)
[2020-05-20] MEDS: [UNRECOGNIZED DRUG - OTHER] IH SCH ×2 (08:18→20:25)
[2020-05-20] MEDS: TRIGLIDE PO SCH (08:18)
[2020-05-20] MEDS: NORVASC PO SCH (08:18)
[2020-05-20] MEDS: ARICEPT PO SCH (08:19)
[2020-05-20] MEDS: ZOLOFT PO SCH (08:19)
[2020-05-20] MEDS: GLUCOPHAGE PO SCH ×2 (08:20→16:58)
[2020-05-20] MEDS: ATIVAN PO SCH ×2 (08:20→20:23)
[2020-05-20] MEDS: LOTENSIN PO SCH (08:20)
[2020-05-20] MEDS: NAMENDA PO SCH ×2 (08:20→20:23)
[2020-05-20] MEDS: ROCEPHIN 1 GM/50 ML D5W 1 GM/50 ML BAG IV SCH (08:21)
[2020-05-20] MEDS: LANOXIN PO SCH (08:21)
[2020-05-20] MEDS: MEVACOR PO SCH (16:57)
[2020-05-20] MEDS ORDERED: COUMADIN ONE ×2 (17:08)
[2020-05-20] MEDS: COUMADIN 2 MG, COUMADIN 5 MG PO SCH ×2 (17:10)
[2020-05-20] MEDS: HUMULIN R SUBCUT PRN ×2 (17:15→20:26)
[2020-05-20] MEDS: NON-FORMULARY MEDICATION (Vit C,E-Zn-Coppr-Lutein-Zeaxan [Preservision Areds-2] 250-200-40 PO SCH (21:01)
[2020-05-21] MEDS: VENTOLIN HFA (PER PUFF-WITH SPACER) IH SCH ×4 (05:00→23:05)
[2020-05-21] MEDS: ATROVENT HFA INHALER (PER PUFF-WITH SPACER) IH SCH ×4 (05:00→23:05)
[2020-05-21 05:24] LABS: HEMOGLOBIN 9.6 g/dl (12.0-16.0); MEAN CORPUSCULAR HEMOGLOBIN 26.6 pg (27.0-31.0); MEAN CORPUSCULAR VOLUME 85.9 fl (81.0-99.0); PLATELET COUNT 285 10^3/uL (140-440); RDW COEFFICIENT OF VARIATION 18.5 % (11.6-14.8); RED BLOOD COUNT 3.61 10^6/ul (4.20-5.40); WHITE BLOOD COUNT 14.62 K/ul (4.6-10.2)
[2020-05-21 05:33] LABS: ANISOCYTOSIS NOT PRESENT (NOT PRESENT)
[2020-05-21] MEDS: NEURONTIN PO SCH (05:36)
[2020-05-21] MEDS: SOLU-MEDROL 125 MG IVP SCH ×3 (05:36→20:26)
[2020-05-21] MEDS: LASIX TAB PO SCH (05:36)
[2020-05-21] MEDS: PRILOSEC PO SCH ×2 (05:36→17:20)
[2020-05-21 05:40] LABS: ALBUMIN 4.02 g/dL (3.5-5.0); ASPARTATE AMINO TRANSFERASE 23.2 U/L (14-36); BILIRUBIN,TOTAL 0.29 mg/dL (0.2-1.3); BLOOD UREA NITROGEN 46.6 mg/dL (7-17); CALCIUM 8.76 mg/dL (8.4-10.2); CARBON DIOXIDE 22.3 mmol/L (22-30.0); CHLORIDE 97.6 mmol/L (98-107); CREATININE 1.23 mg/dL (0.60-1.30); GLUCOSE 320.1 mg/dL (74-106); POTASSIUM 4.3 mmol/L (3.5-5.1); SODIUM 133.8 mmol/L (134.5-145); TOTAL PROTEIN 6.9 g/dL (6.3-8.2)
[2020-05-21 05:46] LABS: ALANINE AMINOTRANSFERASE 27.3 U/L (0-35)
[2020-05-21] MEDS: HUMULIN R SUBCUT PRN ×4 (06:07→20:15)
[2020-05-21] MEDS: LANOXIN PO SCH (09:25)
[2020-05-21] MEDS: LOTENSIN PO SCH (09:25)
[2020-05-21] MEDS: TRIGLIDE PO SCH (09:25)
[2020-05-21] MEDS: GLUCOPHAGE PO SCH ×2 (09:25→17:20)
[2020-05-21] MEDS: ZOLOFT PO SCH (09:25)
[2020-05-21] MEDS: ATIVAN PO SCH ×2 (09:26→20:14)
[2020-05-21] MEDS: NAMENDA PO SCH ×2 (09:26→20:14)
[2020-05-21] MEDS: NORVASC PO SCH (09:26)
[2020-05-21] MEDS: ARICEPT PO SCH (09:26)
[2020-05-21] MEDS: ROCEPHIN 1 GM/50 ML D5W 1 GM/50 ML BAG IV SCH (09:35)
[2020-05-21] MEDS: [UNRECOGNIZED DRUG - OTHER] IH SCH ×2 (09:35→20:14)
--- NOTE | 2020-05-21 13:22 | DI ---
Exam: Two-view chest x-ray. Date: 05/21/2020. Comparison: 04/12/[address] scan performed 05/17/2020.. HISTORY: Shortness of breath. FINDINGS: No acute osseous abnormalities are seen. The lungs are clear. The cardiac silhouette is enlarged. Pulmonary vasculature is normal. ASVD is present. Impression: Compared with chest CT performed 05/17/2020. The 3.7 x 2.3 cm spiculated mass in the ri ght upper lobe observed on the CT scan is not identified on this study. Further workup is still sarah mmended. In addition, the patient has a small layering right pleural effusion which is also not visi ble on this exam. No focal consolidation is observed.
[2020-05-21 14:07] LABS: ABG PH 7.31 (7.35-7.45)
[2020-05-21] MEDS ORDERED: COUMADIN ONE ×2 (17:12)
[2020-05-21] MEDS: COUMADIN 2 MG, COUMADIN 5 MG PO SCH ×2 (17:19)
[2020-05-21] MEDS: MEVACOR PO SCH (17:20)
[2020-05-21] MEDS: NON-FORMULARY MEDICATION (Vit C,E-Zn-Coppr-Lutein-Zeaxan [Preservision Areds-2] 250-200-40 PO SCH (20:20)
[2020-05-22] MEDS: VENTOLIN HFA (PER PUFF-WITH SPACER) IH SCH ×4 (04:50→23:15)
[2020-05-22] MEDS: ATROVENT HFA INHALER (PER PUFF-WITH SPACER) IH SCH (04:50)
[2020-05-22 05:18] LABS: HEMOGLOBIN 9.6 g/dl (12.0-16.0); MEAN CORPUSCULAR HEMOGLOBIN 27.3 pg (27.0-31.0); MEAN CORPUSCULAR VOLUME 85.2 fl (81.0-99.0); PLATELET COUNT 265 10^3/uL (140-440); RDW COEFFICIENT OF VARIATION 18.7 % (11.6-14.8); RED BLOOD COUNT 3.52 10^6/ul (4.20-5.40); WHITE BLOOD COUNT 14.64 K/ul (4.6-10.2)
[2020-05-22] MEDS: PRILOSEC PO SCH ×2 (05:41→17:08)
[2020-05-22] MEDS: LASIX TAB PO SCH (05:41)
[2020-05-22] MEDS: NEURONTIN PO SCH (05:41)
[2020-05-22 05:46] LABS: ALANINE AMINOTRANSFERASE 26.6 U/L (0-35); ALBUMIN 3.78 g/dL (3.5-5.0); ASPARTATE AMINO TRANSFERASE 23.4 U/L (14-36); BILIRUBIN,TOTAL 0.29 mg/dL (0.2-1.3); BLOOD UREA NITROGEN 45.9 mg/dL (7-17); CALCIUM 8.45 mg/dL (8.4-10.2); CARBON DIOXIDE 28.5 mmol/L (22-30.0); CHLORIDE 98.9 mmol/L (98-107); CREATININE 1.2 mg/dL (0.60-1.30); GLUCOSE 313.2 mg/dL (74-106); POTASSIUM 4.15 mmol/L (3.5-5.1); SODIUM 135.2 mmol/L (134.5-145); TOTAL PROTEIN 6.5 g/dL (6.3-8.2)
[2020-05-22 05:47] LABS: PROTHROMBIN TIME 24.4 SEC (9.3-11.0)
[2020-05-22 05:54] LABS: ANISOCYTOSIS NOT PRESENT (NOT PRESENT)
[2020-05-22] MEDS: SOLU-MEDROL 125 MG IVP SCH ×3 (06:09→21:48)
[2020-05-22] MEDS: HUMULIN R SUBCUT PRN ×3 (06:42→20:54)
[2020-05-22] MEDS ORDERED: LASIX IVP SCH (08:30)
--- NOTE | 2020-05-22 08:41 | PCM.PROG ---
Attending Provider: ATTENDING PROVIDER: Dr. FRENCH JACOBSON This patient is seen with Antoinette Martínez, Nurse Practitioner. DATE OF SERVICE: 05/22/20 SUBJECTIVE: This 79 year old /WHITE F was hospitalized 05/17/20. The patient is resting comfortably. She does have increased wheezing this morning. She states she is not feeling well. No fever. Repeat chest x-ray did show improvement. REVIEW OF SYSTEMS: CONSTITUTIONAL: No night sweats. No fatigue, malaise, lethargy. No fever or chills. HEENT: Eyes: No visual changes. No eye pain. No eye discharge. ENT: No runny nose. No epistaxis. No sinus pain. No odynophagia. No congestion. RESPIRATORY: No cough, no congestion. No hemoptysis. Shortness of breath. Wheezing. CARDIOVASCULAR: No angina symptoms. No CHF symptoms. No atypical chest pain for CAD. No palpitations. No orthopnea.. GASTROINTESTINAL: No abdominal pain. No nausea or vomiting. No diarrhea or constipation. No hematemesis. No hematochezia. GENITOURINARY: No urgency. No frequency. No dysuria. No hematuria. No obstructive symptoms. No discharge. No pain. No significant abnormal bleeding. MUSCULOSKELETAL: No musculoskeletal pain; no joint swelling. NEUROLOGICAL: Awake, alert, oriented to time, place and person. No headache. No neck pain. No syncope. No seizures. No dizziness. PSYCHIATRIC: Not anxious. No depression. No suicidal thoughts. No homicidal th oughts. SKIN: No rash. No lesions. No wounds. Leg edema. ENDOCRINE: No unexplained weight loss. No weight gain. HEMATOLOGIC/LYMPHATIC: No anemia. No purpura. No petechiae. No prolonged or excessive bleeding. No palpable lymph nodes. PHYSICAL EXAMINATION: GENERAL: The patient is awake, alert and oriented, lying in bed in no distress. VITAL SIGNS: Temperature 97.9 F, Pulse 81, Respiratory Rate 22, BP 144/62, Pulse Ox 90% HEENT: Head normocephalic, atraumatic. Eyes: Extraocular muscles are intact. Pupils are equal, round and reactive to light and accommodation. Ears: No lesions. Nose appeared normal. Throat: No exudate or erythema. NECK: Supple. No JVD, no carotid bruit. No lymphadenopathy or thyromegaly. LUNGS: Bilateral inspiratory and expiratory wheezing. Clear to auscultation. Percussion note normal. Chest symmetrical. HEART: Irregular heart rate. S1, S2, no S3. No murmurs. No cyanosis or clubbing. No ascites. Pulses: Dorsalis pedis and posterior tibial pulses +1 to +2 both sides. ABDOMEN: Soft. Non-tender. Bowel sounds active. No CVA tenderness. No mass felt. EXTREMITIES: Trace bilateral leg edema. Full range of motion of all extremities, equal. NEUROLOGIC: No focal deficit. Cranial nerves II through XII are grossly intact. No headache, no double vision or headache. SKIN: Not dry. Intact. Turgor-normal. LYMPHATIC: No palpable lymph nodes/no lymphedema. MUSCULOSKELETAL: Normal joints with no swelling. Muscle tone is normal. LAB REVIEW: 05/22/20 05:10 05/22/20 05:10 05/22/20 05:10: Sodium 135.2, Potassium 4.15, Chloride 98.9, Carbon Dioxide 28.5, Anion Gap 11.95, BUN 45.9 H, Creatinine 1.20, Estimated GFR (MDRD) 43.00, BUN/Creatinine Ratio 38.25, Glucose 313.2 H, Calcium 8.45, Total Bilirubin 0.29, AST 23.4, ALT 26.6, Alkaline Phosphatase 58.0, Total Protein 6.50, Albumin 3.78, Globulin 2.72, Albumin/Globulin Ratio 1.38 05/22/20 05:10: PT 24.4 H, INR 2.28 05/22/20 05:10: WBC 14.64 H, RBC 3.52 L, Hgb 9.6 L, Hct 30.0 L, MCV 85.2, MCH 27.3, MCHC 32.0, RDW Coeff of Monique 18.7 H, Plt Count 265, Neutrophils % (Manual) 89.0 H, Lymphocytes % (Manual) 6.0 L, Monocytes % (Manual) 5.0, Anisocytosis Not present 05/21/20 13:55: Puncture Site Rbrach, Base Excess -0.6, O2 Saturation 94.7, ABG pH 7.31 L, ABG pCO2 51.0 H, ABG pO2 81.0 L, ABG HCO3 25.7, ABG Total CO2 27.3 H, Hemoglobin 0.6, Oxyhemoglobin 94.2 L, Carboxyhemoglobin 2.2 H, Total Hemoglobin 9.5 L, O2 Delivery Device Nc, Oxygen Liter Flow 2.00 05/21/20 05:05: NT-Pro-B Natriuret Pep 3980.000 H ASSESSMENT: Please see below. 1. Right upper lobe pneumonia 2. COPD 3. Atrial fibrillation 4. Chronic anemia 5. Dementia with behavioral disturbances 6. Chronic kidney disease stage 3 7. History of right upper lobe mass. PLAN: 1. Discontinue Atrovent inhaler 2. Discontinue Advair 3. Symbicort inhaler 160 two puffs BID 4. Lasix 20mg IV Plan and coordination of the patient's care discussed in the presence of Rolling Up Machine Operator and nurse. SCRIBED BY: Cassia DELGADO scribed while in presence of service performed by Dr. Jacobson/Antoinette Martínez APRN on 05/22/20 ([id number])
[2020-05-22] MEDS: LANOXIN PO SCH (08:44)
[2020-05-22] MEDS: ZOLOFT PO SCH (08:45)
[2020-05-22] MEDS: GLUCOPHAGE PO SCH ×2 (08:45→17:08)
[2020-05-22] MEDS: ATIVAN PO SCH ×2 (08:45→20:55)
[2020-05-22] MEDS: NORVASC PO SCH (08:46)
[2020-05-22] MEDS: SYMBICORT 160-4.5 MCG INHALER IH SCH ×2 (08:46→20:56)
[2020-05-22] MEDS: LOTENSIN PO SCH (08:46)
[2020-05-22] MEDS: ARICEPT PO SCH (08:46)
[2020-05-22] MEDS: TRIGLIDE PO SCH (08:46)
[2020-05-22] MEDS: NAMENDA PO SCH ×2 (08:46→20:55)
[2020-05-22] MEDS: ROCEPHIN 1 GM/50 ML D5W 1 GM/50 ML BAG IV SCH (08:49)
[2020-05-22] MEDS ORDERED: VENTOLIN HFA (PER PUFF-WITH SPACER) IH PRN (08:57)
--- NOTE | 2020-05-22 09:51 | PN ---
DATE OF SERVICE: 05/21/2020 SUBJECTIVE: 79 year old white female hospitalized with acute respiratory failure and pneumonia. The patient's condition looked like steadily has improved. She feels a little bit better but over feels depressed because the son is going to leave for the next 5 months for his work and she missed out on her great granddaughter's birthday democrat. The patient does not have any symptoms of CHF or coronary insufficiency. REVIEW OF SYSTEMS: CONSTITUTIONAL: No night sweats. No fatigue, malaise, lethargy. No fever or chills. HEENT: Eyes: No visual changes. No eye pain. No eye discharge. ENT: No runny nose. No epistaxis. No sinus pain. No sore throat. No odynophagia. No congestion. RESPIRATORY: No cough, no congestion. No hemoptysis. No shortness of breath. CARDIOVASCULAR: No angina symptoms. No CHF symptoms. No atypical chest pain for CAD. No palpitations. No PND. No orthopnea. GASTROINTESTINAL: No abdominal pain. No nausea or vomiting. No diarrhea or constipation. No hematemesis. No hematochezia. Appetite has improved some. GENITOURINARY: No urgency. No frequency. No dysuria. No hematuria. No obstructive symptoms. No discharge. No pain. No significant abnormal bleeding. MUSCULOSKELETAL: No musculoskeletal pain; no joint swelling. NEUROLOGICAL: No headache. No neck pain. No syncope. No seizures. No dizziness. PSYCHIATRIC: Not anxious. No depression. No suicidal thoughts. No homicidal thoughts. SKIN: No rash. No lesions. No wounds. ENDOCRINE: No unexplained weight loss. No weight gain. HEMATOLOGIC/LYMPHATIC: No anemia. No purpura. No petechiae. No prolonged or excessive bleeding. No palpable lymph nodes. PHYSICAL EXAMINATION: VITAL SIGNS: Temperature 97.6, pulse 77, respiratory rate 20, blood pressure 134/62 and pulse ox 97% with 2 liters. HEENT: Head normocephalic, atraumatic. Eyes: Extraocular muscles are intact. Pupils are equal, round and reactive to light and accommodation. Ears: No lesions. Nose appeared normal. Throat: No exudate or erythema. NECK: Supple. No JVD, no carotid bruit. No lymphadenopathy or thyromegaly. LUNGS: Decreased breath sounds but clear to auscultation. Percussion note normal. Chest symmetrical. HEART: S1, S2, no S3. No murmurs. No cyanosis or clubbing. No ascites. Pulses: Dorsalis pedis and posterior tibial pulses +1 to +2 bilaterally. ABDOMEN: Soft. Nontender. Bowel sounds active. No CVA tenderness. No mass felt. EXTREMITIES: No edema. Full range of motion of all extremities, equal. NEUROLOGIC: No focal deficit. Cranial nerves II through XII are grossly intact. No headache, no double vision or headache. SKIN: Not dry. Intact. Turgor - normal. LYMPHATIC: No palpable lymph nodes/no lymphedema. MUSCULOSKELETAL: Normal joints with no swelling. Muscle tone is normal. LABS: Hgb 9.6, hct 31, WBC 14,000 normal differential, creatinine 1.4, BUN 46, potassium 4.3 ASSESSMENT: 1. Chronic respiratory failure with deterioration in respiratory status from acute bronchitis/pneumonia PLAN: 1. Continue IV antibiotics, steroids and NEBS. 2. The patient had ABG done today which shows compensated respiratory acidosis. Saturation 96%. Need to cute down 2 liters to 1.5 to 1 liters. CONDITION: Stable, improving TIME SPENT: More than 30 minutes. Plan and coordination of the patient's care discussed in the presence of nurse. DEVAN
[2020-05-22] MEDS: TYLENOL PO PRN (09:52)
--- NOTE | 2020-05-22 10:15 | PN ---
DATE OF SERVICE: 05/17/20 SUBJECTIVE: The patient was seen and examined in the emergency room. The patient was brought to the emergency room by the son because of having cough and congestion. Covid negative. REVIEW OF SYSTEMS: CONSTITUTIONAL: No night sweats. No fatigue, malaise, lethargy. No fever or chills. HEENT: Eyes: No visual changes. No eye pain. No eye discharge. ENT: No runny nose. No epistaxis. No sinus pain. No sore throat. No odynophagia. No congestion. RESPIRATORY: Positive for cough and congestion. No hemoptysis. No shortness of breath. CARDIOVASCULAR: No angina symptoms. No CHF symptoms. No atypical chest pain for CAD. No palpitations. No PND. No orthopnea. GASTROINTESTINAL: No abdominal pain. No nausea or vomiting. No diarrhea or constipation. No hematemesis. No hematochezia. GENITOURINARY: No urgency. No frequency. No dysuria. No hematuria. No obstructive symptoms. No discharge. No pain. No significant abnormal bleeding. MUSCULOSKELETAL: No musculoskeletal pain; no joint swelling. NEUROLOGICAL: No headache. No neck pain. No syncope. No seizures. No dizziness. PSYCHIATRIC: Not anxious. No depression. No suicidal thoughts. No homicidal thoughts. SKIN: No rash. No lesions. No wounds. ENDOCRINE: No unexplained weight loss. No weight gain. HEMATOLOGIC/LYMPHATIC: No anemia. No purpura. No petechiae. No prolonged or excessive bleeding. No palpable lymph nodes. ASSESSMENT: 1. Upper lobe pneumonia 2. Atrial fibrillation with normal ventricular response. PLAN: 1. Hospitalize the patient. 2. Give antibiotics, steroids and nebs treatment. 3. Oxygen supplement. CONDITION: Stable. TIME SPENT: More than 30 minutes. Plan and coordination of the patient's care discussed in the presence of nurse. DEVAN
--- NOTE | 2020-05-22 10:39 | PN ---
DATE OF SERVICE: 05/18/20 SUBJECTIVE: The patient was seen and examined with the nurse practitioner. The patient's condition seems to be improving. She is up and about walking with help, less short of breath. PLAN: 1. Continue antibiotics, steroids. 2. She was checked for Covid with PCR, negative. TIME SPENT: More than 30 minutes. Plan and coordination of the patient's care discussed in the presence of nurse. DEVAN
--- NOTE | 2020-05-22 10:50 | PN ---
DATE OF SERVICE: 05/20/20 SUBJECTIVE: 79-year-old white female hospitalized with pneumonia. The patient's condition slightly has improved from yesterday. She is feeling better. Appetite has improved some. The progress is very slow. She has severe chronic lung disease with asthma. REVIEW OF SYSTEMS: CONSTITUTIONAL: No night sweats. No fatigue, malaise, lethargy. No fever or chills. HEENT: Eyes: No visual changes. No eye pain. No eye discharge. ENT: No runny nose. No epistaxis. No sinus pain. No sore throat. No odynophagia. No congestion. RESPIRATORY: Shortness of breath on exertion. No cough, no congestion. No hemoptysis. CARDIOVASCULAR: No angina symptoms. No CHF symptoms. No atypical chest pain for CAD. No palpitations. No PND. No orthopnea. GASTROINTESTINAL: Appetite seems to be improving. No abdominal pain. No nausea or vomiting. No diarrhea or constipation. No hematemesis. No hematochezia. GENITOURINARY: No urgency. No frequency. No dysuria. No hematuria. No obstructive symptoms. No discharge. No pain. No significant abnormal bleeding. MUSCULOSKELETAL: No musculoskeletal pain; no joint swelling. NEUROLOGICAL: No headache. No neck pain. No syncope. No seizures. No dizziness. PSYCHIATRIC: Not anxious. No depression. No suicidal thoughts. No homicidal thoughts. SKIN: No rash. No lesions. No wounds. ENDOCRINE: No unexplained weight loss. No weight gain. HEMATOLOGIC/LYMPHATIC: No anemia. No purpura. No petechiae. No prolonged or excessive bleeding. No palpable lymph nodes. PHYSICAL EXAMINATION: VITAL SIGNS: Temperature 97.7, pulse 85, respiratory rate 16, blood pressure 123/72, pulse ox 94% on 2L. HEENT: Head normocephalic, atraumatic. Eyes: Extraocular muscles are intact. Pupils are equal, round and reactive to light and accommodation. Ears: No lesions. Nose appeared normal. Throat: No exudate or erythema. NECK: Supple. No JVD, no carotid bruit. No lymphadenopathy or thyromegaly. LUNGS: Decreased breath sounds with mild wheeze. Percussion note normal. Chest symmetrical. HEART: S1, S2, no S3. No murmurs. No cyanosis or clubbing. No ascites. Pulses: Dorsalis pedis and posterior tibial pulses +1 to +2 bilaterally. ABDOMEN: Soft. Nontender. Bowel sounds active. No CVA tenderness. No mass felt. EXTREMITIES: No edema. Full range of motion of all extremities, equal. NEUROLOGIC: No focal deficit. Cranial nerves II through XII are grossly intact. No headache, no double vision or headache. SKIN: Not dry. Intact. Turgor - normal. LYMPHATIC: No palpable lymph nodes/no lymphedema. MUSCULOSKELETAL: Normal joints with no swelling. Muscle tone is normal. LABS: Hemoglobin 8.7, hematocrit 28, WBC 12,000, normal differential. Creatinine 1.4, BUN 44, potassium 4.3. ASSESSMENT: 1. Acute respiratory failure with pneumonia, seems to be slowly recovering with Dexamethasone and antibiotics. PLAN: 1. Continue the same treatment. 2. Oximetry monitoring. 3. Telemetry. 4. The patient is morbidly obese with BMI of 38. The patient is advised to lose weight. Diet for weight loss discussed. TIME SPENT: More than 30 minutes. Plan and coordination of the patient's care discussed in the presence of nurse. DEVAN
[2020-05-22] MEDS ORDERED: ATROVENT HFA INHALER (PER PUFF-WITH SPACER) IH SCH (12:00)
[2020-05-22] MEDS ORDERED: COUMADIN PO SCH (17:00)
[2020-05-22] MEDS: MEVACOR PO SCH (17:08)
[2020-05-22] MEDS: NON-FORMULARY MEDICATION (Vit C,E-Zn-Coppr-Lutein-Zeaxan [Preservision Areds-2] 250-200-40 PO SCH (20:57)
[2020-05-23] MEDS: VENTOLIN HFA (PER PUFF-WITH SPACER) IH SCH ×4 (05:15→22:52)
[2020-05-23 05:27] LABS: HEMATOCRIT 28.9 % (37.0-47.0); HEMOGLOBIN 9.1 g/dl (12.0-16.0); MEAN CORPUSCULAR HGB CONC 31.5 (31.8-35.4); MEAN CORPUSCULAR VOLUME 85.8 fl (81.0-99.0); PLATELET COUNT 232 10^3/uL (140-440); RDW COEFFICIENT OF VARIATION 18.5 % (11.6-14.8); RED BLOOD COUNT 3.37 10^6/ul (4.20-5.40); WHITE BLOOD COUNT 13.27 K/ul (4.6-10.2)
[2020-05-23 05:36] LABS: PROTHROMBIN TIME 29.6 SEC (9.3-11.0)
[2020-05-23 05:42] LABS: ALANINE AMINOTRANSFERASE 31.2 U/L (0-35); ALBUMIN 3.48 g/dL (3.5-5.0); ALKALINE PHOSPHATASE 45.9 U/L (53-141); ASPARTATE AMINO TRANSFERASE 22.7 U/L (14-36); BILIRUBIN,TOTAL 0.29 mg/dL (0.2-1.3); BLOOD UREA NITROGEN 46.5 mg/dL (7-17); CALCIUM 8.35 mg/dL (8.4-10.2); CARBON DIOXIDE 30.5 mmol/L (22-30.0); CHLORIDE 96.8 mmol/L (98-107); CREATININE 1.12 mg/dL (0.60-1.30); GLUCOSE 279.8 mg/dL (74-106); POTASSIUM 4.04 mmol/L (3.5-5.1); SODIUM 134.6 mmol/L (134.5-145); TOTAL PROTEIN 5.98 g/dL (6.3-8.2)
[2020-05-23] MEDS: NEURONTIN PO SCH (05:43)
[2020-05-23] MEDS: LASIX TAB PO SCH (05:43)
[2020-05-23] MEDS: PRILOSEC PO SCH ×2 (05:43→17:03)
[2020-05-23 05:47] LABS: ANISOCYTOSIS NOT PRESENT (NOT PRESENT)
[2020-05-23] MEDS: SOLU-MEDROL 125 MG IVP SCH (05:56)
[2020-05-23] MEDS: HUMULIN R SUBCUT PRN ×4 (06:02→20:36)
--- NOTE | 2020-05-23 08:49 | PCM.PROG ---
Attending Provider: ATTENDING PROVIDER: Dr. FRENCH JACOBSON This patient is seen with Antoinette Martínez, Nurse Practitioner. DATE OF SERVICE: 05/23/20 SUBJECTIVE: This 79 year old /WHITE F was hospitalized 05/17/20. The patient is resting comfortably. Wheezing seems to be better today. She had significant urine output yesterday with IV Lasix. Chest x-ray showed improvement. REVIEW OF SYSTEMS: CONSTITUTIONAL: No night sweats. No fatigue, malaise, lethargy. No fever or chil ls. Weakness. HEENT: Eyes: No visual changes. No eye pain. No eye discharge. ENT: No runny nose. No epistaxis. No sinus pain. No odynophagia. No congestion. RESPIRATORY: Cough, no congestion. No hemoptysis. No shortness of breath. CARDIOVASCULAR: No angina symptoms. No CHF symptoms. No atypical chest pain for CAD. No palpitations. No orthopnea.. GASTROINTESTINAL: No abdominal pain. No nausea or vomiting. No diarrhea or constipation. No hematemesis. No hematochezia. GENITOURINARY: No urgency. No frequency. No dysuria. No hematuria. No obstructive symptoms. No discharge. No pain. No significant abnormal bleeding. MUSCULOSKELETAL: No musculoskeletal pain; no joint swelling. NEUROLOGICAL: Awake, alert, confusion. No headache. No neck pain. No syncope. No seizures. No dizziness. PSYCHIATRIC: Not anxious. No depression. No suicidal thoughts. No homicidal thoughts. SKIN: No rash. No lesions. No wounds. ENDOCRINE: No unexplained weight loss. No weight gain. HEMATOLOGIC/LYMPHATIC: No anemia. No purpura. No petechiae. No prolonged or excessive bleeding. No palpable lymph nodes. PHYSICAL EXAMINATION: GENERAL: The patient is awake, alert and oriented, sitting in bed in no distress. VITAL SIGNS: Temperature 97.8 F, Pulse 87, Respiratory Rate 20, BP 158/82, Pu lse Ox 96% HEENT: Head normocephalic, atraumatic. Eyes: Extraocular muscles are intact. Pupils are equal, round and reactive to light and accommodation. Ears: No lesions. Nose appeared normal. Throat: No exudate or erythema. NECK: Supple. No JVD, no carotid bruit. No lymphadenopathy or thyromegaly. LUNGS: Diminished breath sounds. Bilateral rhonchi improved. Clear to auscultation. Percussion note normal. Chest symmetrical. HEART: S1, S2, no S3. No murmurs. No cyanosis or clubbing. No ascites. Pulses: Dorsalis pedis and posterior tibial pulses +1 to +2 both sides. ABDOMEN: Soft. Non-tender. Bowel sounds active. No CVA tenderness. No mass felt. EXTREMITIES: No edema. Full range of motion of all extremities, equal. NEUROLOGIC: No focal deficit. Cranial nerves II through XII are grossly intact. No headache, no double vision or headache. SKIN: Not dry. Intact. Turgor-normal. LYMPHATIC: No palpable lymph nodes/no lymphedema. MUSCULOSKELETAL: Normal joints with no swelling. Muscle tone is normal. LAB REVIEW: 05/23/20 05:30 05/23/20 04:51 05/23/20 05:30: WBC 13.27 H, RBC 3.37 L, Hgb 9.1 L, Hct 28.9 L, MCV 85.8, MCH 27.0, MCHC 31.5 L, RDW Coeff of Monique 18.5 H, Plt Count 232, Neutrophils % (Manual) 89.0 H, Band Neutrophils % 1.0, Lymphocytes % (Manual) 5.0 L, Monocytes % (Manual) 5.0, Anisocytosis Not present 05/23/20 04:51: Sodium 134.6, Potassium 4.04, Chloride 96.8 L, Carbon Dioxide 30.5 H, Anion Gap 11.34, BUN 46.5 H, Creatinine 1.12, Estimated GFR (MDRD) 47.00, BUN/Creatinine Ratio 41.51, Glucose 279.8 H, Calcium 8.35 L, Total Bilirubin 0.29, AST 22.7, ALT 31.2, Alkaline Phosphatase 45.9 L, Total Protein 5.98 L, Albumin 3.48 L, Globulin 2.50, Albumin/Globulin Ratio 1.39 05/23/20 04:51: PT 29.6 H D, INR 2.76 05/17/20 13:20: C-Reactive Prot, Quant 16 ASSESSMENT: Please see below. 1. Right Lobar pneumonia 2. COPD 3. Dementia 4. Atrial fibrillation 5. Diabetes mellitus type 2 6. Chronic anemia 7. Known right upper lobe mass. PLAN: 1. Hold Coumadin 2. Resume 6mg Coumadin tomorrow 3. Discontinue Solu-Medrol 4. Prednisone 10mg BID daily Plan and coordination of the patient's care discussed in the presence of Fruit I Farmworker and nurse. SCRIBED BY: Cassia DELGADO scribed while in presence of service performed by Dr. Jacobson/Antoinette Martínez APRN on 05/23/20 ([id number])
[2020-05-23] MEDS: LOTENSIN PO SCH (09:01)
[2020-05-23] MEDS: TRIGLIDE PO SCH (09:01)
[2020-05-23] MEDS: NORVASC PO SCH (09:01)
[2020-05-23] MEDS: ARICEPT PO SCH (09:01)
[2020-05-23] MEDS: GLUCOPHAGE PO SCH ×2 (09:01→17:03)
[2020-05-23] MEDS: ATIVAN PO SCH ×2 (09:01→20:32)
[2020-05-23] MEDS: NAMENDA PO SCH ×2 (09:02→20:32)
[2020-05-23] MEDS: LANOXIN PO SCH (09:02)
[2020-05-23] MEDS: ZOLOFT PO SCH (09:02)
[2020-05-23] MEDS: SYMBICORT 160-4.5 MCG INHALER IH SCH ×2 (09:03→20:33)
[2020-05-23] MEDS: ROCEPHIN 1 GM/50 ML D5W 1 GM/50 ML BAG IV SCH (09:03)
--- NOTE | 2020-05-23 11:53 | PN ---
DATE OF SERVICE: 05/22/20 SUBJECTIVE: 79-year-old white female hospitalized with pneumonia and respiratory failure. The patient's condition is improving slowly. Today she looked worse than yesterday. The problem is not clearing the secretions and she is somewhat deepressed. Will continue the same treatment with antibiotics, steroids and inhalers. TIME SPENT: More than 30 minutes. Plan and coordination of the patient's care discussed in the presence of nurse. DEVAN
--- NOTE | 2020-05-23 14:30 | PN ---
DATE OF SERVICE: 05/23/20 SUBJECTIVE: Today the patient was seen and examined with the nurse practitioner. The patient's condition is stable. She will be continued on steroids, nebs and antibiotics. We may do an echocardiogram to evaluate her LV function. She does not seem to have congestive heart failure. She may have cor pulmonale, chronic respiratory failure, improved oxygenation with 1.5L of saturation is more than 90 to 95%. TIME SPENT: More than 30 minutes. Plan and coordination of the patient's care discussed in the presence of nurse. DEVAN
[2020-05-23] MEDS: MEVACOR PO SCH (17:03)
[2020-05-23] MEDS: PREDNISONE PO SCH (17:04)
[2020-05-23] MEDS: NON-FORMULARY MEDICATION (Vit C,E-Zn-Coppr-Lutein-Zeaxan [Preservision Areds-2] 250-200-40 PO SCH (20:36)
[2020-05-23] MEDS: TYLENOL PO PRN (22:27)
[2020-05-24] MEDS: VENTOLIN HFA (PER PUFF-WITH SPACER) IH SCH ×4 (04:54→23:25)
[2020-05-24 05:18] LABS: HEMATOCRIT 32.9 % (37.0-47.0); HEMOGLOBIN 10.5 g/dl (12.0-16.0); MEAN CORPUSCULAR HGB CONC 31.9 (31.8-35.4); MEAN CORPUSCULAR VOLUME 84.6 fl (81.0-99.0); PLATELET COUNT 286 10^3/uL (140-440); RDW COEFFICIENT OF VARIATION 18.4 % (11.6-14.8); RED BLOOD COUNT 3.89 10^6/ul (4.20-5.40); WHITE BLOOD COUNT 17.07 K/ul (4.6-10.2)
[2020-05-24 05:28] LABS: PROTHROMBIN TIME 24.6 SEC (9.3-11.0)
[2020-05-24 05:33] LABS: ALBUMIN 3.62 g/dL (3.5-5.0); ALKALINE PHOSPHATASE 48.6 U/L (53-141); ASPARTATE AMINO TRANSFERASE 30.6 U/L (14-36); BILIRUBIN,TOTAL 0.36 mg/dL (0.2-1.3); BLOOD UREA NITROGEN 41.2 mg/dL (7-17); CALCIUM 8.55 mg/dL (8.4-10.2); CARBON DIOXIDE 34.9 mmol/L (22-30.0); CHLORIDE 94.6 mmol/L (98-107); GLUCOSE 115.6 mg/dL (74-106); POTASSIUM 3.9 mmol/L (3.5-5.1); SODIUM 136.6 mmol/L (134.5-145); TOTAL PROTEIN 6.41 g/dL (6.3-8.2)
[2020-05-24 05:41] LABS: ANISOCYTOSIS NOT PRESENT (NOT PRESENT)
[2020-05-24] MEDS: NEURONTIN PO SCH (05:46)
[2020-05-24] MEDS: LASIX TAB PO SCH (05:47)
[2020-05-24] MEDS: PRILOSEC PO SCH ×2 (05:47→17:05)
[2020-05-24] MEDS: ROCEPHIN 1 GM/50 ML D5W 1 GM/50 ML BAG IV SCH (08:40)
[2020-05-24] MEDS: SYMBICORT 160-4.5 MCG INHALER IH SCH ×2 (08:43→20:16)
[2020-05-24] MEDS: LOTENSIN PO SCH (08:45)
[2020-05-24] MEDS: NORVASC PO SCH (08:46)
[2020-05-24] MEDS: GLUCOPHAGE PO SCH ×2 (08:46→17:05)
[2020-05-24] MEDS: ZOLOFT PO SCH (08:46)
[2020-05-24] MEDS: ATIVAN PO SCH ×2 (08:46→20:15)
[2020-05-24] MEDS: PREDNISONE PO SCH ×2 (08:46→17:05)
[2020-05-24] MEDS: NAMENDA PO SCH ×2 (08:46→20:15)
[2020-05-24] MEDS: TRIGLIDE PO SCH (08:46)
[2020-05-24] MEDS: ARICEPT PO SCH (08:47)
[2020-05-24] MEDS: LANOXIN PO SCH (08:48)
[2020-05-24] MEDS ORDERED: COUMADIN PO SCH (17:00)
[2020-05-24] MEDS: MEVACOR PO SCH (17:05)
[2020-05-24] MEDS: NON-FORMULARY MEDICATION (Vit C,E-Zn-Coppr-Lutein-Zeaxan [Preservision Areds-2] 250-200-40 PO SCH (20:16)
[2020-05-24] MEDS: HUMULIN R SUBCUT PRN (20:28)
[2020-05-25] MEDS: VENTOLIN HFA (PER PUFF-WITH SPACER) IH SCH ×2 (04:50→11:46)
[2020-05-25 05:12] LABS: BASOPHILS % (AUTO) 0.2 % (0.0-3.0); HEMATOCRIT 31.3 % (37.0-47.0); HEMOGLOBIN 9.9 g/dl (12.0-16.0); IMMATURE GRANULOCYTE # (AUTO) 0.5 (0.0-1.0); IMMATURE GRANULOCYTE % (AUTO) 3.1 % (0.0-5.0); LYMPHOCYTES # (AUTO) 0.8 K/uL (0.60-3.4); LYMPHOCYTES % (AUTO) 5.8 (10.0-50.0); MEAN CORPUSCULAR HEMOGLOBIN 26.6 pg (27.0-31.0); MEAN CORPUSCULAR HGB CONC 31.6 (31.8-35.4); MEAN CORPUSCULAR VOLUME 84.1 fl (81.0-99.0); MONOCYTES # (AUTO) 0.9 K/uL (0.4-2.0); MONOCYTES % (AUTO) 6.4 (0-10); NEUTROPHILS # (AUTO) 12.2 K/ul (2.0-6.9); NEUTROPHILS % (AUTO) 84.5 % (42.2-75.2); PLATELET COUNT 244 10^3/uL (140-440); RDW COEFFICIENT OF VARIATION 18.3 % (11.6-14.8); RED BLOOD COUNT 3.72 10^6/ul (4.20-5.40); WHITE BLOOD COUNT 14.44 K/ul (4.6-10.2)
[2020-05-25 05:24] LABS: ALANINE AMINOTRANSFERASE 33.1 U/L (0-35); ALBUMIN 3.22 g/dL (3.5-5.0); ASPARTATE AMINO TRANSFERASE 26.2 U/L (14-36); BILIRUBIN,TOTAL 0.41 mg/dL (0.2-1.3); BLOOD UREA NITROGEN 42.4 mg/dL (7-17); CALCIUM 8.16 mg/dL (8.4-10.2); CHLORIDE 91.8 mmol/L (98-107); CREATININE 1.01 mg/dL (0.60-1.30); POTASSIUM 3.85 mmol/L (3.5-5.1); PROTHROMBIN TIME 16.5 SEC (9.3-11.0); SODIUM 135.3 mmol/L (134.5-145); TOTAL PROTEIN 5.79 g/dL (6.3-8.2)
[2020-05-25] MEDS: NEURONTIN PO SCH (05:41)
[2020-05-25] MEDS: LASIX TAB PO SCH (05:41)
[2020-05-25] MEDS: PRILOSEC PO SCH (05:42)
--- NOTE | 2020-05-25 08:44 | PCM.PROG ---
Attending Provider: ATTENDING PROVIDER: Dr. FRENCH JACOBSON This patient is seen with Antoinette Martínez, Nurse Practitioner. DATE OF SERVICE: 05/25/20 SUBJECTIVE: This 79 year old /WHITE F was hospitalized 05/17/20. The patient's wheezing and shortness of breath has significantly improved. She is up and about on her own. Still wearing nasal oxygen. She will have three step test today prior to discharge. She is eating well. Alert and oriented this morning. Kidney function is slightly improved. REVIEW OF SYSTEMS: CONSTITUTIONAL: No night sweats. No fatigue, malaise, lethargy. No fever or chills. HEENT: Eyes: No visual changes. No eye pain. No eye discharge. ENT: No runny nose. No epistaxis. No sinus pain. No odynophagia. No congestion. RESPIRATORY: Cough, no congestion. No hemoptysis. No shortness of breath. CARDIOVASCULAR: No angina symptoms. No CHF symptoms. No atypical chest pain for CAD. No palpitations. No orthopnea.. GASTROINTESTINAL: No abdominal pain. No nausea or vomiting. No diarrhea or constipation. No hematemesis. No hematochezia. GENITOURINARY: No urgency. No frequency. No dysuria. No hematuria. No obstructive symptoms. No discharge. No pain. No significant abnormal bleeding. MUSCULOSKELETAL: No musculoskeletal pain; no joint swelling. NEUROLOGICAL: Awake, alert, forgetfulness. No headache. No neck pain. No syncope. No seizures. No dizziness. PSYCHIATRIC: Not anxious. No depression. No suicidal thoughts. No homicidal thoughts. SKIN: No rash. No lesions. No wounds. ENDOCRINE: No unexplained weight loss. No weight gain. HEMATOLOGIC/LYMPHATIC: No anemia. No purpura. No petechiae. No prolonged or excessive bleeding. No palpable lymph nodes. PHYSICAL EXAMINATION: GENERAL: The patient is awake, alert and oriented, lying in bed in no distress. VITAL SIGNS: Temperature 97.8 F, Pulse 83, Respiratory Rate 20, BP 134/78, Pulse Ox 95% HEENT: Head normocephalic, atraumatic. Eyes: Extraocular muscles are intact. Pupils are equal, round and reactive to light and accommodation. Ears: No lesions. Nose appeared normal. Throat: No exudate or erythema. NECK: Supple. No JVD, no carotid bruit. No lymphadenopathy or thyromegaly. LUNGS: Diminished breath sounds. Clear to auscultation. Percussion note normal. Chest symmetrical. HEART: Irregular heart rate. S1, S2, no S3. No murmurs. No cyanosis or clubbi ng. No ascites. Pulses: Dorsalis pedis and posterior tibial pulses +1 to +2 both sides. ABDOMEN: Soft. Non-tender. Bowel sounds active. No CVA tenderness. No mass felt. EXTREMITIES: Trace pedal edema. Full range of motion of all extremities, equal. NEUROLOGIC: No focal deficit. Cranial nerves II through XII are grossly intact. No headache, no double vision or headache. SKIN: Not dry. Intact. Turgor-normal. LYMPHATIC: No palpable lymph nodes/no lymphedema. MUSCULOSKELETAL: Normal joints with no swelling. Muscle tone is normal. LAB REVIEW: 05/25/20 04:43 05/25/20 04:43 05/25/20 04:43: Sodium 135.3, Potassium 3.85, Chloride 91.8 L, Carbon Dioxide 36.0 H, Anion Gap 11.35, BUN 42.4 H, Creatinine 1.01, Estimated GFR (MDRD) 53.00, BUN/Creatinine Ratio 41.98, Glucose 93.0, Calcium 8.16 L, Total Bilirubin 0.41, AST 26.2, ALT 33.1, Alkaline Phosphatase 43.0 L, Total Protein 5.79 L, Albumin 3.22 L, Globulin 2.57, Albumin/Globulin Ratio 1.25 05/25/20 04:43: PT 16.5 H D, INR 1.55 05/25/20 04:43: WBC 14.44 H, RBC 3.72 L, Hgb 9.9 L, Hct 31.3 L, MCV 84.1, MCH 2 6.6 L, MCHC 31.6 L, RDW Coeff of Monique 18.3 H, Plt Count 244, Immature Gran % (Auto) 3.1, Neut % (Auto) 84.5 H, Lymph % (Auto) 5.8 L, Becker % (Auto) 6.4, Eos % (Auto) 0.0, Baso % (Auto) 0.2, Neut # (Auto) 12.2 H, Lymph # (Auto) 0.8, Becker # (Auto) 0.9, Eos # (Auto) 0.0, Baso # (Auto) 0.0, Immature Gran # (Auto) 0.5 ASSESSMENT: Please see below. 1. Right lobar pneumonia 2. COPD 3. Atrial fibrillation on Coumadin 4. Dementia 5. Chronic kidney disease stage 2 PLAN: 1. Discharge home 2. Discontinue Advair 3. Symbicort two puffs BID 4. Prednisone 10mg BID for 5 days 5. Omnicef 300mg BID for 5 days 6. Three step oxygen test today 7. Home Health for PT/OT. Plan and coordination of the patient's care discussed in the presence of Conveyor Belt Installer and nurse. SCRIBED BY: JAQUELINE LINDER Seed Trucker scribed while in presence of service performed by Dr. Jacobson/Antoinette Martínez APRN on 05/25/20 ([id number])
[2020-05-25] MEDS ORDERED: OMNICEF PO SCH (09:30)
[2020-05-25] MEDS: SYMBICORT 160-4.5 MCG INHALER IH SCH (09:37)
[2020-05-25] MEDS: LOTENSIN PO SCH (09:38)
[2020-05-25] MEDS: PREDNISONE PO SCH (09:38)
[2020-05-25] MEDS: LANOXIN PO SCH (09:38)
[2020-05-25] MEDS: GLUCOPHAGE PO SCH (09:38)
[2020-05-25] MEDS: TRIGLIDE PO SCH (09:39)
[2020-05-25] MEDS: ARICEPT PO SCH (09:39)
[2020-05-25] MEDS: ZOLOFT PO SCH (09:39)
[2020-05-25] MEDS: ATIVAN PO SCH (09:39)
[2020-05-25] MEDS: NAMENDA PO SCH (09:40)
[2020-05-25] MEDS: NORVASC PO SCH (09:40)
[2020-05-25] MEDS: HUMULIN R SUBCUT PRN (12:37)
[2020-05-25 13:57] VITALS: BP 116/57; TEMP 98.1
--- NOTE | 2020-05-25 14:36 | CM.DICTOOL ---
ADMISSION: 05/17/20 12:22 DISCHARGE: MAY 25, 2020 DATE OF SERVICE: 05/25/20 FINAL DIAGNOSIS RIGHT UPPER LOBE PNEUMONIA COPD ACUTE RESPIRATORY FAILURE ATRIAL FIBRILLATION ON COUMADIN DIABETES MELLITUS TYPE 2 CHRONIC KIDNEY DISEASE STAGE 2 HISTORY OF RT UPPER LOBE MASS, SEES DR. FRANCO DEMENTIA WITH BEHAVIORAL DISTURBANCES HX: . CONGESTIVE HEART FAILURE CVA MASS OF THE RIGHT LUNG, SEE DR. FRANCO ACUTE BRONCHITIS COPD, SEES DR. 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 FARRIS HYSTERECTOMY TOTAL LEFT KNEE, 06/26/15 (S. JACOBSON) TOTAL RIGHT KNEE, 12/18/16 (S. JACOBSON) POST OPERATIVE SYMPTOMATIC ANEMIA REQUIRING TRANSFUSIONS X2, 12/23/16 HEART CATH , DR. GONZÁLES, 09/2014 COLONOSCOPY, DR. VILLANUEVA, 02/2020 LAST VITALS Temp Pulse Resp BP Pulse Ox 97.8 F 83 20 134/78 94 L 05/25/20 05:48 05/25/20 09:38 05/25/20 05:48 05/25/20 05:48 05/25/20 09:49 TAKE THESE MEDICATIONS AT HOME Albuterol Sulfate (Albuterol Sulfate (Ventolin Hfa) 18 Gm 1 Puff With Spacer) 2 puff IH RTQ6H MARIANNE PRN Last Admin: 05/25/20 11:46 Dose: 2 puff Documented by: Amlodipine Besylate (Amlodipine Besylate 5 Mg Tablet) 10 mg PO DAILY MARIANNE Last Admin: 05/25/20 09:40 Dose: 10 mg Documented by: Benazepril HCl (Benazepril Hcl 10 Mg Tablet) 40 mg PO DAILY MARIANNE Last Admin: 05/25/20 09:38 Dose: 40 mg Documented by: Budesonide/Formoterol Fumarate (Budesonide/Formoterol Fumarate 160/4.5 Mcg Inhaler) 2 puff IH BID MARIANNE -- (NEW) Last Admin: 05/25/20 09:37 Dose: 2 puff Documented by: Cefdinir (Cefdinir 300 Mg Capsule) 300 mg PO Q12HR MARIANNE X 5 DAYS -- ( NEW) Stop: 05/28/20 09:29 Last Admin: 05/25/20 09:38 Dose: 300 mg Documented by: Digoxin (Digoxin 125 Mcg Tablet) 125 mcg PO DAILY [facility] Last Admin: 05/25/20 09:38 Dose: 125 mcg Documented by: Donepezil HCl (Donepezil Hcl 10 Mg Tablet) 10 mg PO DAILY [facility] Last Admin: 05/25/20 09:39 Dose: 10 mg Documented by: Fenofibrate (Fenofibrate 54 Mg Tablet) 54 mg PO DAILY [facility] Last Admin: 05/25/20 09:39 Dose: 54 mg Documented by: Furosemide (Furosemide 40 Mg Tablet) 40 mg PO QDAC [facility] Last Admin: 05/25/20 05:41 Dose: 40 mg Documented by: Gabapentin (Gabapentin 300 Mg Capsule) 300 mg PO QDAC [facility] Last Admin: 05/25/20 05:41 Dose: 300 mg Documented by: Lorazepam (Lorazepam 1 Mg Tablet) 1 mg PO BID [facility] Last Admin: 05/25/20 09:39 Dose: 1 mg Documented by: Lovastatin (Lovastatin 20 Mg Tablet) 80 mg PO QPM [facility] Last Admin: 05/24/20 17:05 Dose: 80 mg Documented by: Memantine (Memantine Hcl 10 Mg Tablet) 10 mg PO BID [facility] Last Admin: 05/25/20 09:40 Dose: 10 mg Documented by: Metformin HCl (Metformin Hcl 500 Mg Tablet) 1,000 mg PO BIDWM [facility] Last Admin: 05/25/20 09:38 Dose: 1,000 mg Documented by: Non-Formulary Medication (Vit C,T-Jc-Hogrq-Lutein-Zeaxan [Preservision Areds-2]) 1 tab PO BEDTIME [facility] Last Admin: 05/24/20 20:16 Dose: Not Given Documented by: Non-Formulary Medication (Insulin Glargine U-300 Conc [Toujeo Solostar U-300 Insulin]) 45 unit SUBCUT QPM [facility] Last Admin: 05/24/20 20:25 Dose: 45 unit Documented by: Omeprazole (Omeprazole 20 Mg Capsule.) 20 mg PO BIDAC [facility] Last Admin: 05/25/20 05:42 Dose: 20 mg Documented by: Sertraline HCl (Sertraline Hcl 50 Mg Tablet) 50 mg PO DAILY [facility] Last Admin: 05/25/20 09:39 Dose: 50 mg Documented by: Warfarin Sodium (Warfarin Sodium 3 Mg Tablet) 6 mg PO QPM MARIANNE -- ( CHANGED) Last Admin: 05/24/20 17:12 Dose: 6 mg Documented by: PREDNISONE 10 MG PO BID WM X 5 DAYS -- ( NEW) ALLERGIES No Known Allergies Allergy (Verified 05/17/20 09:47) DISCONTINUED MEDICATIONS 1).AUGMENTIN 1 BID 2).AZITHROMYCIN 250 MG PO DAILY 3).Advair Diskus 1 inh IH BID MARIANNE L 4).Warfarin Sodium 7 mg PO QPM MARIANNE 5).TRAMADOL 50 MG PO BID PRN 6). PREVIOUS PREDNISONE ORDER NEW PRESCRIPTIONS: NEW PRESCRIPTIONS Warfarin Sodium 6 mg PO QPM MARIANNE -- ( CHANGED) PREDNISONE 10 MG PO BID WM X 5 DAYS -- ( NEW) SYMBICORT (Budesonide/Formoterol Fumarate 160/4.5 Mcg Inhaler) 2 puff IH BID MARIANNE -- (NEW) OMNICEF (Cefdinir) 300 mg PO Q12HR MARIANNE X 5 DAYS -- ( NEW) SMOKING: N/A DISEASE SPECIFIC EDUCATION: PNEUMONIA COPD A- FIB DEMENTIA CKD COVID 19 LAB REVIEW: 05/25/20 04:43 05/25/20 04:43 05/25/20 04:43: Sodium 135.3, Potassium 3.85, Chloride 91.8 L, Carbon Dioxide 36.0 H, Anion Gap 11.35, BUN 42.4 H, Creatinine 1.01, Estimated GFR (MDRD) 53.00, BUN/Creatinine Ratio 41.98, Glucose 93.0, Calcium 8.16 L, Total Bilirubin 0.41, AST 26.2, ALT 33.1, Alkaline Phosphatase 43.0 L, Total Protein 5.79 L, Albumin 3.22 L, Globulin 2.57, Albumin/Globulin Ratio 1.25 05/25/20 04:43: PT 16.5 H D, INR 1.55 05/25/20 04:43: WBC 14.44 H, RBC 3.72 L, Hgb 9.9 L, Hct 31.3 L, MCV 84.1, MCH 26.6 L, MCHC 31.6 L, RDW Coeff of Monique 18.3 H, Plt Count 244, Immature Gran % (Auto) 3.1, Neut % (Auto) 84.5 H, Lymph % (Auto) 5.8 L, Marquette % (Auto) 6.4, Eos % (Auto) 0.0, Baso % (Auto) 0.2, Neut # (Auto) 12.2 H, Lymph # (Auto) 0.8, Marquette # (Auto) 0.9, Eos # (Auto) 0.0, Baso # (Auto) 0.0, Immature Gran # (Auto) 0.5 PLAN: DISCHARGE HOME : TODAY, May. LIVES WITH FAMILY. REFUSED HOME HEALTH. ACTIVITY: UP WITH WALKER WITH SUPERVISION. GET UP AND WALK THROUGHOUT THE DAY, WITH REST PERIODS. STAY HOME UNTIL FOLLOW- UP MD, RECOGNIZE SOCIAL DISTANCING WHEN OUT. BLEEDING PRECAUTIONS DIET: 1800 ADA DIET WITH BEDTIME SNACK. BLOOD SUGAR CHECKS BEFORE HOSPITAL STAY. MD FOLLOW-UP: 1). SEE DR. JACOBSON/ JAMARI CARRILLO APRN/ NATE RAUSCH APRN IN THE OFFICE ON Friday06/01/2020 @ 245 PM. 2). [facility], DR. VINCENT, SUNDAY, JUNE 07, 2020 @ 3:00 PM HOME OXYGEN: 1 L/M PER N/C CONTINOUS A S PROVIDED BY [facility] [phone] CODE STATUS: FULL CODE MRS SNYDER HAS BEEN ALERT AND ORIENTED X 3 WITH FORGETFULNESS TO CERTAIN DETAILS AND SITUATIONS. GETTING UP ON HER OWN AT TIMES. SHE DOES USE A QUAD CANE , BUT HAS BEEN INSTRUCTED AND ENCOURAGED TO USE HER WHEELED WALKER AT HOME. HER LUNGS ARE SLIGHTLY DIMINISHED BUT NO WHEEZING. HAS REQUIRED OXYGEN @ 1 L/M PER N/C CONTINUOS AT THIS TIME AND QUALIFIED FOR HOME OXYGEN AT 1 L/M. INITIALLY SHE REQUIRED 2 L/M. CONTINUES TO HAVE EXERTIONAL DYSPNEA. SKIN IS DRY AND INTACT. SHE WEARS A DEPENDS DUE TO DRIBBLING. SHE IS CONTINENT OF BOWELS WITH LAST BM 05/24/2020. NUTRITIONAL AND FLUID INTAKE HAS BEEN GOOD. SHE LIVES WITH MR. JOSUE, SIGNIFICANT OTHER AND A GRAND DAUGHTER. HER AND HER FAMILY HAS REFUSED HOME HEALTH. HER FAMILY IS TO HELP HER WITH HER MEDICATIONS. NO UNUSUAL BRUISING OR BLEEDING WHILE COUMADIN HAS REQUIRED ADJUSTMENTS WITH DAILY PT/INRS. MD JAMARI SRIVASTAVA APRN ALYCE HANNAN, APRN
--- NOTE | 2020-05-26 09:53 | DS ---
DATE OF SERVICE: . FINAL DIAGNOSIS: 1. RIGHT UPPER LOBE PNEUMONIA 2. COPD 3. ACUTE RESPIRATORY FAILURE 4. ATRIAL FIBRILLATION ON COUMADIN 5. DIABETES MELLITUS TYPE 2 6. CHRONIC KIDNEY DISEASE STAGE 2 7. HISTORY OF RT UPPER LOBE MASS, SEES DR. FRANCO 8. DEMENTIA WITH BEHAVIORAL DISTURBANCES HX: 9. CONGESTIVE HEART FAILURE 10. CVA 11. MASS OF THE RIGHT LUNG, SEE DR. FRANCO 12. ACUTE BRONCHITIS 13. COPD, SEES DR. FRANCO 14. LT SCIATICA 15. OSTEOARTHRITIS 16. ACUTE RESPIRATORY FAILURE 17. 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 CHRONIC ANEMIA 19. DM, TYPE 2, LAST A1C 6.9 ON 12/2019 20. OBESITY (BMI 36.8) 21. GERD 22. DYSLIPIDEMIA 23. HYPERTENSION 24. ADVANCING ALZHEIMER'S TYPE DEMENTIA 25. NEUROPATHY 26. MACULAR DEGENERATION PROCEDURES: 27. BACK SURGERIES X2, DR. FARRIS 28. HYSTERECTOMY 29. TOTAL LEFT KNEE, 06/26/15 (Mima JACOBSON) 30. TOTAL RIGHT KNEE, 12/18/16 (Mima JACOBSON) 31. POST OPERATIVE SYMPTOMATIC ANEMIA REQUIRING TRANSFUSIONS X2, 12/23/16 32. HEART CATH, DR. GONZÁLES, 09/2014 33. COLONOSCOPY, DR. VILLANUEVA, 02/2020 LAST VITALS Temp Pulse Resp BP Pulse Ox 97.8 F 83 20 134/78 94 L 05/25/20 05:48 05/25/20 09:38 05/25/20 05:48 05/25/20 05:48 05/25/20 09:49 DISCHARGE INSTRUCTIONS: 1. DISCHARGE TODAY, May. LIVES WITH FAMILY. REFUSED HOME HEALTH. 2. MD FOLLOW-UP: SEE DR. JACOBSON/JAMARI CARRILLO APRN/NATE RAUSCH APRN IN THE OFFICE ON Friday06/01/2020 @ 245 PM., [facility], DR. VINCENT, SUNDAY, JUNE 07, 2020 @ 3:00 PM. 3. HOME OXYGEN: 1 L/M PER N/C CONTINUOUS PROVIDED BY [facility] [phone]. MEDICATIONS AT DISCHARGE: Albuterol Sulfate (Albuterol Sulfate (Ventolin Hfa) 18 Gm 1 Puff With Spacer) 2 puff IH RTQ6H MARIANNE PRN Last Admin: 05/25/20 11:46 Dose: 2 puff Documented by: Amlodipine Besylate (Amlodipine Besylate 5 Mg Tablet) 10 mg PO DAILY [facility] Last Admin: 05/25/20 09:40 Dose: 10 mg Documented by: Benazepril HCl (Benazepril Hcl 10 Mg Tablet) 40 mg PO DAILY [facility] Last Admin: 05/25/20 09:38 Dose: 40 mg Documented by: Budesonide/Formoterol Fumarate (Budesonide/Formoterol Fumarate 160/4.5 Mcg Inhaler) 2 puff IH BID [facility] -- (NEW) Last Admin: 05/25/20 09:37 Dose: 2 puff Documented by: Cefdinir (Cefdinir 300 Mg Capsule) 300 mg PO Q12HR [facility] X 5 DAYS -- ( NEW) Stop: 05/28/20 09:29 Last Admin: 05/25/20 09:38 Dose: 300 mg Documented by: Digoxin (Digoxin 125 Mcg Tablet) 125 mcg PO DAILY [facility] Last Admin: 05/25/20 09:38 Dose: 125 mcg Documented by: Donepezil HCl (Donepezil Hcl 10 Mg Tablet) 10 mg PO DAILY [facility] Last Admin: 05/25/20 09:39 Dose: 10 mg Documented by: Fenofibrate (Fenofibrate 54 Mg Tablet) 54 mg PO DAILY [facility] Last Admin: 05/25/20 09:39 Dose: 54 mg Documented by: Furosemide (Furosemide 40 Mg Tablet) 40 mg PO QDAC [facility] Last Admin: 05/25/20 05:41 Dose: 40 mg Documented by: Gabapentin (Gabapentin 300 Mg Capsule) 300 mg PO QDAC [facility] Last Admin: 05/25/20 05:41 Dose: 300 mg Documented by: Lorazepam (Lorazepam 1 Mg Tablet) 1 mg PO BID [facility] Last Admin: 05/25/20 09:39 Dose: 1 mg Documented by: Lovastatin (Lovastatin 20 Mg Tablet) 80 mg PO QPM [facility] Last Admin: 05/24/20 17:05 Dose: 80 mg Documented by: Memantine (Memantine Hcl 10 Mg Tablet) 10 mg PO BID [facility] Last Admin: 05/25/20 09:40 Dose: 10 mg Documented by: Metformin HCl (Metformin Hcl 500 Mg Tablet) 1,000 mg PO BIDWM [facility] Last Admin: 05/25/20 09:38 Dose: 1,000 mg Documented by: Non-Formulary Medication (Vit C,L-Cc-Wgmsn-Lutein-Zeaxan ) 1 tab PO BEDTIME [facility] Last Admin: 05/24/20 20:16 Dose: Not Given Documented by: Non-Formulary Medication (Insulin Glargine U-300 Conc ) 45 unit SUBCUT QPM [facility] Last Admin: 05/24/20 20:25 Dose: 45 unit Documented by: Omeprazole (Omeprazole 20 Mg Capsule.) 20 mg PO BIDAC [facility] Last Admin: 05/25/20 05:42 Dose: 20 mg Documented by: Sertraline HCl (Sertraline Hcl 50 Mg Tablet) 50 mg PO DAILY [facility] Last Admin: 05/25/20 09:39 Dose: 50 mg Documented by: Warfarin Sodium (Warfarin Sodium 3 Mg Tablet) 6 mg PO QPM [facility] -- ( CHANGED) Last Admin: 05/24/20 17:12 Dose: 6 mg Documented by: PREDNISONE 10 MG PO BID WM X 5 DAYS -- ( NEW) NEW PRESCRIPTIONS: Warfarin Sodium 6 mg PO QPM [facility] -- (CHANGED) Prednisone 10 MG PO BID WM X 5 DAYS -- (NEW) Symbicort (Budesonide/Formoterol Fumarate 160/4.5 Mcg Inhaler) 2 puff IH BID [facility] -- (NEW) Omnicef (Cefdinir) 300 mg PO Q12HR [facility] X 5 DAYS -- (NEW) DISCONTINUED MEDICATIONS: AUGMENTIN 1 BID AZITHROMYCIN 250 MG PO DAILY Advair Diskus 1 inh IH BID MARIANNE Warfarin Sodium 7 mg PO QPM MARIANNE TRAMADOL 50 MG PO BID PRN PREVIOUS PREDNISONE ORDER DIET INSTRUCTIONS: 1800 ADA DIET WITH BEDTIME SNACK. BLOOD SUGAR CHECKS BEFORE HOSPITAL STAY. ACTIVITY: 1. UP WITH WALKER WITH SUPERVISION. 2. GET UP AND WALK THROUGHOUT THE DAY, WITH REST PERIODS. 3. STAY HOME UNTIL FOLLOW-UP WITH MD, RECOGNIZE SOCIAL DISTANCING WHEN OUT. 4. BLEEDING PRECAUTIONS. SMOKING: N/A DISEASE SPECIFIC EDUCATION: PNEUMONIA COPD A- FIB DEMENTIA CKD COVID 19 HOSPITAL COURSE: The patient is a white female who was brought in through the emergency room, found to have right upper lobe pneumonia. Covid test is negative. She was admitted, placed on Rocephin 1 gm IV daily along with Zithromax 500 mg IV daily as well as Solu-Medrol 125 mg IV q.8hr. She had significant wheezing. Initial ABGs were abnormal with p02 of 58. She was placed on oxygen at 2L. She did have c02 of 50. She does have a history of COPD and a lung mass for which she sees Dr. Franco. She has refused biopsy or any chemo treatment at this point. Over the course of several days she slowly improved. She did on her fourth day have some increase in wheezing. We noticed some leg edema. She was given 40 mg IV Lasix and had significant urine output over the next 24 hours. The next day the wheezing had significantly improved. Today, on the day of discharge, she has been on eight days of antibiotics. A repeat chest x-ray showed improvement in the pneumonia. She is still on oxygen at 1.5L with saturation at 96%. She will have a three-step 02 test prior to discharge. She had been on Prednisone 20 mg b.i.d. for the past three days, has tolerated this well after discontinuing the IV steroids. She has been eating well with no fever. The patient does have dementia which she has had some periods of confusion, was very anxious at first but has done quite well. She is stable for discharge home today. She will go home with Symbicort as a new medication along with Omnicef 300 b.i.d. for the next 5 days, Prednisone 10 mg b.i.d. for the next 5 days. Will followup with her in the office next week. Also to be noted, her INR was elevated on admission. She does have a history of atrial fibrillation and is on Coumadin. The oxygen was held for three days. She has since maintained an INR between 1.7 and 2.8. She will go home on 6 mg of Coumadin daily. TIME SPENT: More than 60 minutes. MTDD
--- NOTE | 2020-05-29 11:39 | ECHO2D ---
Date of Exam: 05/24/2020 Ordering Physician: DR. FRENCH JACOBSON Room #: 108 Reason for Echo: SOA, COPD, A-FIB, HTN, DYSLIPIDEMIA, HX CHF M-Mode Normal Adult Results LV Dimensions Normal Adult Results AoV Opening excursions >1.6 >1.6 LVEDD-base- 3.5-5.8 6.0 Ao root dimensions 2.0-3.7 3.0 LVESD-base- 3.1-4.6 L. Atrium dimensions 1.9-3.8 6.1 Post. Wall thickness 0.8-1.1 1.1 IV septum (thickness) 0.7-1.2 1.2 Post. Wall excursion 0.72-1.3 0.8 Septal motion 0.9 Systolic motion R. Ventricular cavity 1.5-2.0 4.0 LVEF 60% 45% Paradoxical septal wall motion NORMAL 2-D : ENLARGED LEFT ATRIAL, RIGHT VENTRICLE AND LEFT VENTRICLE CAVITIES--MILDLY HYPOKINETIC LEFT VENTRICLE--CALCIFIC AORTIC VALVES--NO EFFUSION, NO THROMBUS M-MODE: MV: NORMAL AV: CALCIFIC AORTIC VALVE LEAFLETS TV: NORMAL PV: CHAMBER SIZE: ENLARGED LEFT ATRIAL, RIGHT VENTRICLE AND LEFT VENTRICLE CAVITIES WALL MOTION: MILDLY HYPOKINETIC LEFT VENTRICLE PERICARDIUM: NORMAL INTERPRETATION: 1. BORDERLINE LET VENTRICULAR HYPERTROPHY WITH MARKEDLY ENLARGED LEFT ATRIAL CAVITY 2. HYPOKINETIC LEFT VENTRICLE WITH EJECTION FRACTION 45% 3. ENLARGED LEFT VENTRICLE AND RIGHT VENTRICLE CAVITIES 4. CALCIFIC AORTIC VALVE LEAFLETS MTDD
--- NOTE | 2020-05-30 14:21 | PN ---
DATE OF SERVICE: 05/24/20 SUBJECTIVE: 79-year-old white female hospitalized with pneumonia and respiratory failure. The patient's condition has improved. ABG p02 is 81, pc02 51, pH 7.31 that was done on 05/21 with 2L of oxygen which at that time, the patient's oxygen level that was given to her was reduced to 1.5L. Congestion is much less. REVIEW OF SYSTEMS: CONSTITUTIONAL: No night sweats. No fatigue, malaise, lethargy. No fever or chills. HEENT: Eyes: No visual changes. No eye pain. No eye discharge. ENT: No runny nose. No epistaxis. No sinus pain. No sore throat. No odynophagia. No congestion. RESPIRATORY: No cough. No hemoptysis. No shortness of breath. CARDIOVASCULAR: No angina symptoms. No CHF symptoms. No atypical chest pain for CAD. No palpitations. No PND. No orthopnea. GASTROINTESTINAL: No abdominal pain. No nausea or vomiting. No diarrhea or constipation. No hematemesis. No hematochezia. GENITOURINARY: No urgency. No frequency. No dysuria. No hematuria. No obstructive symptoms. No discharge. No pain. No significant abnormal bleeding. MUSCULOSKELETAL: No musculoskeletal pain; no joint swelling. NEUROLOGICAL: No headache. No neck pain. No syncope. No seizures. No dizziness. PSYCHIATRIC: Not anxious. No depression. No suicidal thoughts. No homicidal thoughts. SKIN: No rash. No lesions. No wounds. ENDOCRINE: No unexplained weight loss. No weight gain. HEMATOLOGIC/LYMPHATIC: No anemia. No purpura. No petechiae. No prolonged or excessive bleeding. No palpable lymph nodes. PHYSICAL EXAMINATION: GENERAL: The patient is feeling somewhat better. VITAL SIGNS: Temperature 97.9, pulse 88, respiratory rate 16, blood pressure 150/80, pulse ox 94% on 2L. HEENT: Head normocephalic, atraumatic. Eyes: Extraocular muscles are intact. Pupils are equal, round and reactive to light and accommodation. Ears: No lesions. Nose appeared normal. Throat: No exudate or erythema. NECK: Supple. No JVD, no carotid bruit. No lymphadenopathy or thyromegaly. LUNGS: Decreased breath sounds with mild wheeze but good air entry. Percussion note normal. Chest symmetrical. HEART: S1, S2, no S3. No murmurs. No cyanosis or clubbing. No ascites. Pulses: Dorsalis pedis and posterior tibial pulses +1 to +2 bilaterally. ABDOMEN: Soft. Nontender. Bowel sounds active. No CVA tenderness. No mass felt. EXTREMITIES: No edema. Full range of motion of all extremities, equal. NEUROLOGIC: No focal deficit. Cranial nerves II through XII are grossly intact. No headache, no double vision or headache. SKIN: Not dry. Intact. Turgor - normal. LYMPHATIC: No palpable lymph nodes/no lymphedema. MUSCULOSKELETAL: Normal joints with no swelling. Muscle tone is normal. LABS: Hemoglobin 10.5, hematocrit 32, WBC 17,000, normal differential. Creatinine 1, BUN 41, potassium 3.9. Echocardiogram was done. The patient has enlarged LV cavity, LA cavity. Ejection fraction 45%. ASSESSMENT: 1. Severe chronic lung disease with acute bronchitis/pneumonitis with respiratory failure seems to be improving. 2. CHF. The patient had fluid overload from probably a combination of LV dysfunction and salt intake along with steroids. Lasix IV had worked very well. Fluid retention status seems to be under control. 3. INR is 2.3. CONDITION: Stable. Prognosis is guarded. TIME SPENT: More than 30 minutes. Plan and coordination of the patient's care discussed in the presence of nurse. DEVAN
--- NOTE | 2020-05-30 14:24 | PN ---
DATE OF SERVICE: 05/25/20 SUBJECTIVE: The patient was seen and examined with the nurse practitioner. The patient's condition is stable. She is feeling a lot better. She is breathing better. CHF and acute exacerbation of COPD is under control. At time of discharge home on 1L. Condition is stable. TIME SPENT: More than 30 minutes. Plan and coordination of the patient's care discussed in the presence of nurse. DEVAN
--- NOTE | 2020-05-30 14:26 | PN ---
BILLING 05/17/20 ADMISSION DAY LEVEL 5 05/18/20 INTERMEDIATE 05/19/20 INTERMEDIATE 05/20/20 INTERMEDIATE 05/21/20 INTERMEDIATE 05/22/20 INTERMEDIATE 05/23/20 INTERMEDIATE 05/24/20 INTERMEDIATE 05/25/20 D IN DISCHARGE MTDD
== END 2020-05-25 15:30 | disposition home or self-care (01) | DRG 189 ==
LOC: ED 09:37 → MEDSURG A 12:22
PROVIDERS: ADMIT Internal Medicine; ATTEND Internal Medicine
DX: E11.9 Type 2 diabetes mellitus without complications; R06.2 Wheezing; D64.9 Anemia, unspecified; J44.1 Chronic obstructive pulmonary disease with (acute) exacerbation; R06.02 Shortness of breath; I48.91 Unspecified atrial fibrillation; R07.9 Chest pain, unspecified; Z79.01 Long term (current) use of anticoagulants; J96.00 Acute respiratory failure, unspecified whether with hypoxia or hypercapnia; F03.91 Unspecified dementia, unspecified severity, with behavioral disturbance; N18.2 Chronic kidney disease, stage 2 (mild)

== ENCOUNTER 2020-07-17 16:24 | Inpatient (IN) ==
[2020-07-17 16:52] LABS: ABG PH 7.36 (7.35-7.45)
--- NOTE | 2020-07-17 17:14 | ED.PDOC ---
General ED Provider: Dr. DARRYL CHAVEZ MD Chief Complaint: Shortness of Air Stated Complaint: shortness of breath Time Seen by Provider: 07/17/20 16:58 Mode of Arrival: Walk-In Information Source: Patient Primary Care Provider: FRENCH JACOBSON Nursing and Triage Documentation Reviewed and Agree: Yes Does patient meet sepsis criteria?: No System Inflammatory Response Syndrome: Not Applicable Sepsis Protocol: For patient's 13 years and over: Temp is 96.8 and below OR 101 and greater Pulse >90 BPM Resp >20/minute Acutely Altered Mental Status Are patient's symptoms suggestive of a new infection, such as: -Pneumonia -Skin, Soft Tissue -Endocarditis -UTI -Bone, Joint Infection -Implantable Device -Acute Abdominal Infection -Wound Infection -Meningitis -Blood Stream Catheter Infection -Unknown Respiratory Complaint Exam Shortness of Air Complaint/Exam Onset/Duration: ~1-2 days ago Symptoms Are: Worse Timing: Constant Initial Severity: Mild Current Severity: Moderate Character: Reports Dyspnea at rest, Dyspnea on exertion and Orthopnea Aggravating: Reports Movement and Recumbent position Alleviating: Reports Bronchodilators and Oxygen Associated Signs and Symptoms: Reports Rapid breathing and Labored breathing; Denies Cough, Chest pain, Fever, Chills, Diaphoresis, Calf pain, Calf swelling and Edema Related History: Reports Similar episode History of Healthcare-Acquired Pneumonia: No Pulmonary Embolism Risk Factors: Reports None and Smoking (quit ~20 years ago) Cardiac Risk Factors: Reports Elevated lipids, Diabetes and Hypertension Pseudomonas Risk Factors: Reports Chronic Lung Disease Home Oxygen Use: No Unable to Speak Full Sentences: Yes Greer's Sign Present: No Differential Diagnoses: CHF, Pulmonary Edema, COPD Exacerbation, AL, Unstable Angina, Pneumonia, Pulmonary Embolism, SARS, Bronchospasm and URI Related Surgical History: Reports None Review of Systems Review Of Systems Constitutional: Reports No symptoms Respiratory: Reports Short of air Cardiac: Denies Chest pain, Edema and Palpitations All Other Systems: Reviewed and Negative [facility] Medical History A-fib Anxiety Arthritis CAD (coronary artery disease) COPD (chronic obstructive pulmonary disease) CVA (cerebral vascular accident) Depression Diabetes GERD (gastroesophageal reflux disease) Hyperlipidemia Hypertension Lung tumor (~2019) Myocardial infarction Sensorineural hearing loss (SNHL) of both ears Family History BROTHER Arthritis SISTER COPD (chronic obstructive pulmonary disease) FATHER CVA (cerebral vascular accident) Mother Hypertension Mother Diabetes SISTER Diabetes Social History Smoking and tobacco status: Former smoker Alcohol intake: never Number of children: 2 Number of grandchildren: 3 Highest education level completed: Associate degree: academic program Pets and animals: Yes Sexually active: No Do you think of yourself as: straight/heterosexual Current gender identity: female Current diet type/program: diabetic Well-balanced diet: rarely Caffeine: Yes Water heater temperature set < 120 degrees: Yes Working smoke detector in home: Yes Fire extinguisher in home: Yes Carbon monoxide detector in home: Yes Firearms in home: Yes Firearms unloaded and locked: Yes Surgical History History of hysterectomy Total knee replacement status Female Reproductive History Menstrual Hx Hysterectomy: Yes Hx Tubal Ligation: No Physical Exam Physical Exam Appearance: Reports Ill-appearing, No pain distress and Obese Ill-appearing: Mild Pain Distress: None Eyes: Reports EOMI and Conjunctiva clear ENT: Reports Nose normal Respiratory: Reports Airway patent, Breath sounds equal, Breath sounds diminish ed and Rhonchi (mild) Cardiovascular: Reports RRR GI/: Reports Soft, Nontender and Bowel sounds normal Musculoskeletal: Reports Normal strength, ROM intact and No edema Skin: Reports Warm, Dry and Normal color Neurological: Reports Sensation intact, Motor intact, Cranial nerves intact, Alert and Oriented Psychiatric: Reports Affect appropriate and Mood appropriate Interpretation EKG Interpretation Time of EKG #1: 17:09 Rate: Normal (66) Rhythm: Other (rate controlled atrial fibrillation) Ectopy: None ST Segment: Normal Critical Care Note Critical Care Note Total Critical Care Time (mins): 0 Course Course Hematology/Chemistry: 07/18/20 05:13 07/18/20 05:13 Orders, Labs, Meds: Lab Review 07/17/20 07/17/20 07/17/20 16:45 17:00 17:41 WBC 9.17 RBC 3.51 L Hgb 9.9 L Hct 31.9 L MCV 90.9 MCH 28.2 MCHC 31.0 L RDW Coeff of Monique 17.8 H Plt Count 263 Immature Gran % (Auto) 0.5 Neut % (Auto) 81.8 H Lymph % (Auto) 8.4 L [place] % (Auto) 7.0 Eos % (Auto) 2.1 Baso % (Auto) 0.2 Neut # (Auto) 7.5 H Lymph # (Auto) 0.8 [place] # (Auto) 0.6 Eos # (Auto) 0.2 Baso # (Auto) 0.0 Immature Gran # (Auto) 0.1 Puncture Site Rr Base Excess 4.5 H O2 Saturation 85.6 L ABG pH 7.36 ABG pCO2 53.0 H ABG pO2 53.0 L* ABG HCO3 29.9 H ABG Total CO2 31.5 H Adam Test Y Hemoglobin 1.2 Oxyhemoglobin 86.2 L Carboxyhemoglobin 2.7 H Total Hemoglobin 10.2 L O2 Delivery Device Oxygen Liter Flow FiO2 % 21.0 Sodium Potassium Chloride Carbon Dioxide Anion Gap BUN Creatinine Estimated GFR (MDRD) BUN/Creatinine Ratio Glucose Calcium Magnesium Total Bilirubin AST ALT Alkaline Phosphatase Total Creatine Kinase Troponin I NT-Pro-B Natriuret Pep Total Protein Albumin Globulin Albumin/Globulin Ratio TSH Adenovirus (PCR) Not detected B. pertussis DNA (PCR) Not detected B.parapertussis DNA PCR Not detected C. pneumoniae DNA (PCR) Not detected Coronavirus OC43 (PCR) Not detected Coronavirus HKU1 (PCR) Not detected Coronavirus 229E (PCR) Not detected Coronavirus NL63 (PCR) Not detected Human Metapneumovir PCR Not detected Influenza Type A (PCR) Not detected Influenza B (RT-PCR) Not detected M. pneumoniae (PCR) Not detected Parainfluenza 1 (PCR) Not detected Parainfluenza 2 (PCR) Not detected Parainfluenza 3 (PCR) Not detected Parainfluenza 4 (PCR) Not detected RSV (PCR) Not detected Entero/Rhino (PCR) Not detected SARS-CoV-2 (PCR) Not detected 07/17/20 07/17/20 17:41 21:50 WBC RBC Hgb Hct MCV MCH MCHC RDW Coeff of Monique Plt Count Immature Gran % (Auto) Neut % (Auto) Lymph % (Auto) [place] % (Auto) Eos % (Auto) Baso % (Auto) Neut # (Auto) Lymph # (Auto) [place] # (Auto) Eos # (Auto) Baso # (Auto) Immature Gran # (Auto) Puncture Site Rrad Base Excess 5.3 H O2 Saturation 94.3 ABG pH 7.39 ABG pCO2 50.0 H ABG pO2 73.0 L ABG HCO3 30.3 H ABG Total CO2 31.8 H Adam Test + Hemoglobin 0.9 Oxyhemoglobin 93.6 L Carboxyhemoglobin 2.3 H Total Hemoglobin 10.9 L O2 Delivery Device Nc Oxygen Liter Flow 2.00 FiO2 % 28.0 Sodium 140.1 Potassium 4.45 Chloride 102.0 Carbon Dioxide 30.1 H Anion Gap 12.45 BUN 19.3 H Creatinine 1.04 Estimated GFR (MDRD) 51.00 BUN/Creatinine Ratio 18.55 Glucose 123.8 H Calcium 8.80 Magnesium 2.02 Total Bilirubin 0.52 AST 24.2 ALT 15.3 Alkaline Phosphatase 65.2 Total Creatine Kinase 45.0 Troponin I < 0.012 NT-Pro-B Natriuret Pep 2190.000 H Total Protein 7.27 Albumin 4.02 Globulin 3.25 Albumin/Globulin Ratio 1.23 TSH 0.941 Adenovirus (PCR) B. pertussis DNA (PCR) B.parapertussis DNA PCR C. pneumoniae DNA (PCR) Coronavirus OC43 (PCR) Coronavirus HKU1 (PCR) Coronavirus 229E (PCR) Coronavirus NL63 (PCR) Human Metapneumovir PCR Influenza Type A (PCR) Influenza B (RT-PCR) M. pneumoniae (PCR) Parainfluenza 1 (PCR) Parainfluenza 2 (PCR) Parainfluenza 3 (PCR) Parainfluenza 4 (PCR) RSV (PCR) Entero/Rhino (PCR) SARS-CoV-2 (PCR) Orders Category Date Time Status ABG DRAW REQUEST Stat CARDIO 07/17/20 16:46 Completed ABG DRAW REQUEST Stat CARDIO 07/17/20 21:40 Completed EKG-(ED ONLY) Stat CARDIO 07/17/20 16:45 Completed METERED DOSE INHALATION Routine CARDIO 07/17/20 21:18 Active OXYGEN Routine CARDIO 07/17/20 21:09 Active BLOOD GLUCOSE MONITORING 0630,1100,1700,2100 CARE 07/17/20 21:10 Active INTAKE & OUTPUT Q8HR CARE 07/17/20 21:08 Active IP: INSERT SALINE LOCK ONCE CARE 07/17/20 21:08 Completed NPO REMINDER: IMAGING ONCE CARE 07/17/20 18:32 Completed VITAL SIGNS Q8HR CARE 07/17/20 21:08 Active CARDIAC DIET DIETARY 07/17/20 Breakfast Ordered ABG COOX Stat LAB 07/17/20 16:45 Completed ABG COOX Stat LAB 07/17/20 21:50 Completed ABG COOX Stat LAB 07/17/20 22:08 Ordered BASIC METABOLIC PANEL DAILY@0600 LAB 07/18/20 05:13 Completed BASIC METABOLIC PANEL DAILY@0600 LAB 07/19/20 06:00 Ordered CBC W/ AUTO DIFF DAILY@0600 LAB 07/18/20 05:13 Completed CBC W/ AUTO DIFF DAILY@0600 LAB 07/19/20 06:00 Ordered CBC W/ AUTO DIFF Stat LAB 07/17/20 17:41 Completed COMPREHENSIVE METABOLIC PANEL Stat LAB 07/17/20 17:41 Completed CREATINE KINASE Stat LAB 07/17/20 17:41 Completed MAGNESIUM Stat LAB 07/17/20 17:41 Completed NT-PROBNP Stat LAB 07/17/20 17:41 Completed PT WITH INR DAILY@0600 LAB 07/18/20 05:13 Completed PT WITH INR DAILY@0600 LAB 07/19/20 06:00 Ordered RESPIRATORY PANEL 2.1 (PCR) Stat LAB 07/17/20 17:00 Completed THYROID STIMULATING HORMONE Stat LAB 07/17/20 17:41 Completed TROPONIN I Stat LAB 07/17/20 17:41 Completed Albuterol Inhaler(with Spacer) [Ventolin Hfa (Per Puff- MEDS 07/17/20 21:17 Active with Spacer)] 1 puff IH Q6H PRN Amlodipine Besylate [Norvasc] MEDS 07/18/20 09:00 Active 10 mg PO DAILY Azithromycin [Zithromax] MEDS 07/17/20 23:00 Active 500 mg PO DAILY Azithromycin [Zithromax] MEDS 07/17/20 20:53 Discontinued 500 mg PO ONCE STA Budesonide/Formoterol Fumarate [Symbicort 160-4.5 Mcg MEDS 07/18/20 09:00 Active Inhaler] 2 puff IH BID Ceftriaxone/D5w 1 gm Premix [Rocephin 1 gm/50 ml D5w] MEDS 07/18/20 09:00 Active 1 gm in 50 ml IV DAILY Ceftriaxone/D5w 1 gm Premix [Rocephin 1 gm/50 ml D5w] MEDS 07/18/20 21:00 Discontinued 1 gm in 50 ml IV DAILY Ceftriaxone/D5w 1 gm Premix [Rocephin 1 gm/50 ml D5w] MEDS 07/17/20 20:53 Discontinued 1 gm in 50 ml IV ONCE Digoxin [Lanoxin] MEDS 07/18/20 09:00 Active 125 mcg PO DAILY Donepezil HCl [Aricept] MEDS 07/18/20 09:00 Active 10 mg PO DAILY Fenofibrate [Triglide] MEDS 07/18/20 09:00 Active 54 mg PO DAILY Furosemide [Lasix Tab] MEDS 07/18/20 06:30 Active 40 mg PO QDAC Furosemide [Lasix] MEDS 07/17/20 18:38 Discontinued 20 mg IVP ONCE STA Hydrocortisone Sod Succ/Pf [Solu-Cortef 100 mg] MEDS 07/17/20 21:50 Discontinued 200 mg .ROUTE .STK-MED ONE Hydrocortisone Sod Succ/Pf [Solu-Cortef 100 mg] 150 mg MEDS 07/17/20 20:53 Discontinued 0.9 % Sodium Chloride [Sodium Chloride] 100 ml IV ONCE Insulin Glargine,Hum.rec.anlog [Lantus] MEDS 07/18/20 17:00 Active 45 unit SUBCUT QPM Lorazepam [Ativan] MEDS 07/17/20 21:30 Active 1 mg PO BEDTIME Lovastatin [Mevacor] MEDS 07/17/20 21:30 Active 40 mg PO QPM Memantine HCl [Namenda] MEDS 07/18/20 09:00 Active 10 mg PO BID Metformin HCl [Glucophage] MEDS 07/18/20 09:00 Active 1,000 mg PO BID Omeprazole [Prilosec] MEDS 07/18/20 09:00 Active 20 mg PO BID Sertraline HCl [Zoloft] MEDS 07/17/20 21:30 Active 50 mg PO DAILY Warfarin Sodium [Coumadin] MEDS 07/17/20 21:30 Pending 6 mg PO QPM vit C,F-Gu-scrjl-lutein-zeaxan [PreserVision AREDS-2] MEDS 07/17/20 21:30 Pending 1 tab PO BEDTIME RESUSCITATION STATUS Routine OTHERS 07/17/20 21:08 Ordered CHEST, 1V AP ONLY Stat RADS 07/17/20 17:[address] CHEST W/CONTRAST Stat RADS 07/17/20 18:32 Completed Medications Generic Name Dose Route Start Last Admin Trade Name Freq PRN Reason Stop Dose Admin Albuterol Sulfate 1 puff 07/17/20 21:17 Albuterol Sulfate (Ventolin Hfa) 18 Gm 1 Puff With Spacer IH Q6H PRN Bronchospasm Amlodipine Besylate 10 mg 07/18/20 09:00 Amlodipine Besylate 5 Mg Tablet PO DAILY MARIANNE Azithromycin 500 mg 07/17/20 23:00 07/17/20 23:41 Azithromycin 250 Mg Tablet PO 07/20/20 22:59 Not Given DAILY [facility] Budesonide/Formoterol Fumarate 2 puff 07/18/20 09:00 Budesonide/Formoterol Fumarate 160/4.5 Mcg Inhaler IH BID MARIANNE Digoxin 125 mcg 07/18/20 09:00 Digoxin 125 Mcg Tablet PO DAILY [facility] Donepezil HCl 10 mg 07/18/20 09:00 Donepezil Hcl 10 Mg Tablet PO DAILY [facility] Fenofibrate 54 mg 07/18/20 09:00 Fenofibrate 54 Mg Tablet PO DAILY [facility] Furosemide 40 mg 07/18/20 06:30 07/18/20 05:30 Furosemide 40 Mg Tablet PO 40 mg QDAC MARIANNE Administration CEFTRIAXONE/D5W 1 GM PREMIX 1 gm in 50 mls @ 75 mls/hr 07/18/20 09:00 Rocephin 1 Gm/50 Ml D5w IV 07/21/20 08:59 DAILY [facility] Insulin Glargine 45 unit 07/18/20 17:00 Insulin Glargine,Hum.Rec.Anlog 100 Units/Ml SUBCUT QPM MARIANNE Lorazepam 1 mg 07/17/20 21:30 07/17/20 23:56 Lorazepam 0.5 Mg Tablet PO 1 mg BEDTIME MARIANNE Administration Lovastatin 40 mg 07/17/20 21:30 07/17/20 23:56 Lovastatin 20 Mg Tablet PO 40 mg QPM MARIANNE Administration Memantine 10 mg 07/18/20 09:00 Memantine Hcl 10 Mg Tablet PO BID MARIANNE Metformin HCl 1,000 mg 07/18/20 09:00 Metformin Hcl 500 Mg Tablet PO BID MARIANNE Non-Formulary Medication 1 tab 07/17/20 21:30 Vit C,O-Pz-Nprok-Lutein-Zeaxan [Preservision Areds-2] PO BEDTIME MARIANNE Omeprazole 20 mg 07/18/20 09:00 Omeprazole 20 Mg Capsule.Dr PO BID MARIANNE Sertraline HCl 50 mg 07/17/20 21:30 07/17/20 23:56 Sertraline Hcl 50 Mg Tablet PO 50 mg DAILY MARIANNE Administration Warfarin Sodium 6 mg 07/17/20 21:30 Warfarin Sodium 3 Mg Tablet PO QPM MARIANNE Discontinued Medications Generic Name Dose Route Start Last Admin Trade Name Sarah PRN Reason Stop Dose Admin Albuterol/Ipratropium 3 ml 07/17/20 22:38 07/17/20 22:50 Ipratropium/Albuterol Vial.Neb NEB 07/17/20 22:39 3 ml ONCE STA Administration Azithromycin 500 mg 07/17/20 20:53 07/17/20 21:55 Azithromycin 250 Mg Tablet PO 07/17/20 20:54 500 mg ONCE STA Administration Furosemide 20 mg 07/17/20 18:38 07/17/20 18:40 Furosemide Inj 20 Mg/2 Ml Vial IVP 07/17/20 18:39 20 mg ONCE STA Administration Hydrocortisone Sodium 103 mls @ 200 mls/hr 07/17/20 20:53 07/17/20 22:18 Succinate 150 mg/ Sodium IV 07/17/20 21:23 200 mls/hr Chloride ONCE ONE Administration CEFTRIAXONE/D5W 1 GM PREMIX 1 gm in 50 mls @ 75 mls/hr 07/17/20 20:53 07/17/20 22:02 Rocephin 1 Gm/50 Ml D5w IV 07/17/20 21:32 75 mls/hr ONCE STA Administration CEFTRIAXONE/D5W 1 GM PREMIX 1 gm in 50 mls @ 75 mls/hr 07/18/20 21:00 Rocephin 1 Gm/50 Ml D5w IV 07/21/20 20:59 DAILY MARIANNE Vital Signs: Temp Pulse Resp BP Pulse Ox 07/17/20 16:25 98.3 F 83 24 166/76 H 83 L Discharge Plan Discharge Patient Disposition: ADMITTED INPATIENT Discharge Problem: CHF exacerbation ED Provider: DARRYL CHAVEZ Condition: Stable Physician Progress Note: []
[2020-07-17 17:46] LABS: BASOPHILS % (AUTO) 0.2 % (0.0-3.0); EOSINOPHILS # (AUTO) 0.2 K/ul (0.0-0.7); EOSINOPHILS % (AUTO) 2.1 % (0.0-7.0); HEMATOCRIT 31.9 % (37.0-47.0); HEMOGLOBIN 9.9 g/dl (12.0-16.0); IMMATURE GRANULOCYTE # (AUTO) 0.1 (0.0-1.0); IMMATURE GRANULOCYTE % (AUTO) 0.5 % (0.0-5.0); LYMPHOCYTES # (AUTO) 0.8 K/uL (0.60-3.4); LYMPHOCYTES % (AUTO) 8.4 (10.0-50.0); MEAN CORPUSCULAR HEMOGLOBIN 28.2 pg (27.0-31.0); MEAN CORPUSCULAR VOLUME 90.9 fl (81.0-99.0); MONOCYTES # (AUTO) 0.6 K/uL (0.4-2.0); NEUTROPHILS # (AUTO) 7.5 K/ul (2.0-6.9); NEUTROPHILS % (AUTO) 81.8 % (42.2-75.2); PLATELET COUNT 263 10^3/uL (140-440); RDW COEFFICIENT OF VARIATION 17.8 % (11.6-14.8); RED BLOOD COUNT 3.51 10^6/ul (4.20-5.40); WHITE BLOOD COUNT 9.17 K/ul (4.6-10.2)
--- NOTE | 2020-07-17 17:55 | DI ---
Examination: Single view chest. HISTORY: Shortness of breath COMPARISON: 05/21/2020 FINDINGS: Patient is rotated to the left. The cardiomediastinal silhouette appears enlarged. The c entral pulmonary vasculature is indistinct with diffuse increased interstitial markings in the apices . There is opacity in the mid lungs and lung bases bilaterally obscuring the diaphragm. Bilateral p leural effusions are suspected. Overlying monitoring leads are noted. Postsurgical changes in the l umbar spine. Osseous structures without significant abnormalities. IMPRESSION: Persistent enlargement of the cardiomediastinal silhouette with atherosclerosis. Findings consistent with volume overload or pulmonary edema. Given enlarged heart, possible congesti ve failure. Basilar opacities likely representing pleural fluid with adjacent atelectasis or and/or infiltrate/co nsolidation. This could be due to edema or superimposed pneumonia. Note, patient with a previously seen spiculated mass in the right upper lobe on prior imaging 021. This was not well seen on the follow-up radiograph or today's exam. Dedicated follow-up CT of the chest is recommended to further evaluate this lesion as appearance most suspicious for malignancy .
[2020-07-17 17:57] LABS: ALANINE AMINOTRANSFERASE 15.3 U/L (0-35); ALBUMIN 4.02 g/dL (3.5-5.0); ALKALINE PHOSPHATASE 65.2 U/L (53-141); ASPARTATE AMINO TRANSFERASE 24.2 U/L (14-36); BILIRUBIN,TOTAL 0.52 mg/dL (0.2-1.3); BLOOD UREA NITROGEN 19.3 mg/dL (7-17); CARBON DIOXIDE 30.1 mmol/L (22-30.0); CREATININE 1.04 mg/dL (0.60-1.30); GLUCOSE 123.8 mg/dL (74-106); MAGNESIUM 2.02 mg/dL (1.6-2.3); POTASSIUM 4.45 mmol/L (3.5-5.1); SODIUM 140.1 mmol/L (134.5-145); TOTAL PROTEIN 7.27 g/dL (6.3-8.2)
[2020-07-17 18:12] LABS: TROPONIN I < 0.012 ng/ml (0.0000-0.120)
[2020-07-17 18:27] LABS: THYROID STIMULATING HORMONE 0.941 uIU/L (0.465-4.68)
[2020-07-17] MEDS ORDERED: LASIX IM STA (18:28)
[2020-07-17] MEDS ORDERED: LASIX IVP STA (18:38)
--- NOTE | 2020-07-17 20:24 | CT ---
Exam: CT of the chest without contrast History: Abnormal chest radiograph Technique: [address] of the chest following intravenous contrast FINDINGS: Small bilateral pleural effusions, right greater than left. There is a 1.9 x 2.6 cm right upper lobe mass. Focal consolidative and ground-glass opacity in the right upper lobe as well. Ath erosclerotic calcification of the aorta without aneurysm or dissection. No pathologic lymph node enl argement. Granulomatous lymph node calcifications of the mediastinum. No acute chest wall abnormali ty. No acute findings of the upper abdomen. Impression: 1. Right upper lobe mass decreased in diameter from 05/17/2020. 2. Right upper lobe pneumonia 3. Small bilateral pleural effusions increased from prior. All CT scans are performed using dose optimization techniques as appropriate to the performed exam an d include at least one of the following: Automated exposure control, adjustment of the mA and/or kV according t o size, and the use of iterative reconstruction technique.
[2020-07-17] MEDS ORDERED: ROCEPHIN 1 GM/50 ML D5W 1 GM/50 ML BAG IV STA (20:53)
[2020-07-17] MEDS ORDERED: ZITHROMAX PO STA (20:53)
[2020-07-17] MEDS ORDERED: SOLU CORTEF IV ONE (20:53)
[2020-07-17] MEDS ORDERED: SODIUM CHLORIDE IV ONE (20:53)
[2020-07-17] MEDS ORDERED: VENTOLIN HFA (PER PUFF-WITH SPACER) IH PRN (21:17)
[2020-07-17] MEDS ORDERED: ATIVAN PO SCH (21:30)
[2020-07-17] MEDS ORDERED: SOLU-CORTEF 100 MG ONE (21:50)
[2020-07-17 22:11] LABS: ABG PH 7.39 (7.35-7.45)
[2020-07-17] MEDS ORDERED: DUONEB NEB STA (22:38)
[2020-07-17 23:35] VITALS: BMI 36.5
[2020-07-17] MEDS: ZITHROMAX PO SCH (23:41)
[2020-07-17] MEDS: ZOLOFT PO SCH (23:56)
[2020-07-17] MEDS: MEVACOR PO SCH (23:56)
[2020-07-18] MEDS: LASIX TAB PO SCH (05:30)
[2020-07-18 06:09] LABS: HEMATOCRIT 30.4 % (37.0-47.0); HEMOGLOBIN 9.4 g/dl (12.0-16.0); MEAN CORPUSCULAR HEMOGLOBIN 27.7 pg (27.0-31.0); MEAN CORPUSCULAR HGB CONC 30.9 (31.8-35.4); MEAN CORPUSCULAR VOLUME 89.7 fl (81.0-99.0); PLATELET COUNT 267 10^3/uL (140-440); RDW COEFFICIENT OF VARIATION 17.2 % (11.6-14.8); RED BLOOD COUNT 3.39 10^6/ul (4.20-5.40); WHITE BLOOD COUNT 10.49 K/ul (4.6-10.2)
[2020-07-18 06:17] LABS: ANISOCYTOSIS NOT PRESENT (NOT PRESENT)
[2020-07-18 06:22] LABS: PROTHROMBIN TIME 14.3 SEC (9.3-11.0)
[2020-07-18 06:27] LABS: BLOOD UREA NITROGEN 20.1 mg/dL (7-17); CALCIUM 8.66 mg/dL (8.4-10.2); CHLORIDE 97.1 mmol/L (98-107); CREATININE 0.98 mg/dL (0.60-1.30); GLUCOSE 262.8 mg/dL (74-106); POTASSIUM 4.25 mmol/L (3.5-5.1); SODIUM 136.1 mmol/L (134.5-145)
[2020-07-18] MEDS: COUMADIN PO SCH ×2 (08:53→17:41)
[2020-07-18] MEDS: NON-FORMULARY MEDICATION (Vit C,E-Zn-Coppr-Lutein-Zeaxan [Preservision Areds-2] 250-200-40 PO SCH ×2 (08:53→20:42)
[2020-07-18] MEDS ORDERED: PRILOSEC PO SCH (09:00)
[2020-07-18] MEDS ORDERED: GLUCOPHAGE PO SCH (09:00)
--- NOTE | 2020-07-18 09:09 | PCM.PROG ---
Attending Provider: ATTENDING PROVIDER: Dr. FRENCH EID This patient is seen with Antoinette Martínez, Nurse Practitioner. DATE OF SERVICE: 07/18/20 SUBJECTIVE: This 79 year old /WHITE F was hospitalized 07/17/20. The patient is resting comfortably. She is more alert this morning. Still with wheezing and shortness of breath. REVIEW OF SYSTEMS: CONSTITUTIONAL: No night sweats. No fatigue, malaise, lethargy. No fever or chills. Weakness. HEENT: Eyes: No visual changes. No eye pain. No eye discharge. ENT: No runny nose. No epistaxis. No sinus pain. No odynophagia. No congestion. RESPIRATORY: Cough, no congestion. No hemoptysis. Shortness of breath. CARDIOVASCULAR: No angina symptoms. No CHF symptoms. No atypical chest pain for CAD. No palpitations. No orthopnea.. GASTROINTESTINAL: No abdominal pain. No nausea or vomiting. No diarrhea or constipation. No hematemesis. No hematochezia. GENITOURINARY: No urgency. No frequency. No dysuria. No hematuria. No obstructi ve symptoms. No discharge. No pain. No significant abnormal bleeding. MUSCULOSKELETAL: No musculoskeletal pain; no joint swelling. NEUROLOGICAL: Awake, alert, oriented to time, place and person. No headache. No neck pain. No syncope. No seizures. No dizziness. PSYCHIATRIC: Not anxious. No depression. No suicidal thoughts. No homicidal thoughts. SKIN: No rash. No lesions. No wounds. ENDOCRINE: No unexplained weight loss. No weight gain. HEMATOLOGIC/LYMPHATIC: No anemia. No purpura. No petechiae. No prolonged or excessive bleeding. No palpable lymph nodes. PHYSICAL EXAMINATION: GENERAL: The patient is awake, alert and oriented, lying in bed in no distress. VITAL SIGNS: Temperature 97.6 F, Pulse 76, Respiratory Rate 20, BP 154/80, Pulse Ox 95% HEENT: Head normocephalic, atraumatic. Eyes: Extraocular muscles are intact. Pupils are equal, round and reactive to light and accommodation. Ears: No lesions. Nose appeared normal. Throat: No exudate or erythema. NECK: Supple. No JVD, no carotid bruit. No lymphadenopathy or thyromegaly. LUNGS: Diminished breath sounds. Faint expiratory wheezing. Clear to auscultation. Percussion note normal. Chest symmetrical. HEART: S1, S2, no S3. No murmurs. No cyanosis or clubbing. No ascites. Pulses: Dorsalis pedis and posterior tibial pulses +1 to +2 both sides. ABDOMEN: Soft. Non-tender. Bowel sounds active. No CVA tenderness. No mass felt. EXTREMITIES: No edema. Full range of motion of all extremities, equal. NEUROLOGIC: No focal deficit. Cranial nerves II through XII are grossly intact. No headache. No double vision. SKIN: Not dry. Intact. Turgor-normal. LYMPHATIC: No palpable lymph nodes/no lymphedema. MUSCULOSKELETAL: Normal joints with no swelling. Muscle tone is normal. LAB REVIEW: 07/18/20 05:13 07/18/20 05:13 07/18/20 05:13: Sodium 136.1, Potassium 4.25, Chloride 97.1 L, Carbon Dioxide 34.0 H, Anion Gap 9.25, BUN 20.1 H, Creatinine 0.98, Estimated GFR (MDRD) 55.00, BUN/Creatinine Ratio 20.51, Glucose 262.8 H D, Calcium 8.66 07/18/20 05:13: PT 14.3 H, INR 1.35 07/18/20 05:13: WBC 10.49 H, RBC 3.39 L, Hgb 9.4 L, Hct 30.4 L, MCV 89.7, MCH 27.7, MCHC 30.9 L, RDW Coeff of Monique 17.2 H, Plt Count 267, Neutrophils % (Manual) 94.0 H, Lymphocytes % (Manual) 5.0 L, Monocytes % (Manual) 1.0, Anisocytosis Not present 07/17/20 21:50: Puncture Site Rrad, Base Excess 5.3 H, O2 Saturation 94.3, ABG pH 7.39, ABG pCO2 50.0 H, ABG pO2 73.0 L, ABG HCO3 30.3 H, ABG Total CO2 31.8 H, Adam Test +, Hemoglobin 0.9, Oxyhemoglobin 93.6 L, Carboxyhemoglobin 2.3 H, Total Hemoglobin 10.9 L, O2 Delivery Device Nc, Oxygen Liter Flow 2.00, FiO2 % 28.0 07/17/20 17:41: Sodium 140.1, Potassium 4.45, Chloride 102.0, Carbon Dioxide 30.1 H, Anion Gap 12.45, BUN 19.3 H, Creatinine 1.04, Estimated GFR (MDRD) 51.00, BUN/Creatinine Ratio 18.55, Glucose 123.8 H, Calcium 8.80, Magnesium 2.02, Total Bilirubin 0.52, AST 24.2, ALT 15.3, Alkaline Phosphatase 65.2, Total Creatine Kinase 45.0, Troponin I < 0.012, NT-Pro-B Natriuret Pep 2190.000 H, Total Protein 7.27, Albumin 4.02, Globulin 3.25, Albumin/Globulin Ratio 1.23, TSH 0.941 07/17/20 17:41: WBC 9.17, RBC 3.51 L, Hgb 9.9 L, Hct 31.9 L, MCV 90.9, MCH 28.2, MCHC 31.0 L, RDW Coeff of Monique 17.8 H, Plt Count 263, Immature Gran % (Auto) 0.5, Neut % (Auto) 81.8 H, Lymph % (Auto) 8.4 L, [place] % (Auto) 7.0, Eos % (Auto) 2.1, Baso % (Auto) 0.2, Neut # (Auto) 7.5 H, Lymph # (Auto) 0.8, [place] # (Auto) 0.6, Eos # (Auto) 0.2, Baso # (Auto) 0.0, Immature Gran # (Auto) 0.1 07/17/20 17:00: Adenovirus (PCR) Not detected, B. pertussis DNA (PCR) Not detected, B.parapertussis DNA PCR Not detected, C. pneumoniae DNA (PCR) Not detected, Coronavirus OC43 (PCR) Not detected, Coronavirus HKU1 (PCR) Not detected, Coronavirus 229E (PCR) Not detected, Coronavirus NL63 (PCR) Not detected, Human Metapneumovir PCR Not detected, Influenza Type A (PCR) Not detected, Influenza B (RT-PCR) Not detected, M. pneumoniae (PCR) Not detected, Parainfluenza 1 (PCR) Not detected, Parainfluenza 2 (PCR) Not detected, Parainfluenza 3 (PCR) Not detected, Parainfluenza 4 (PCR) Not detected, RSV (PCR) Not detected, Entero/Rhino (PCR) Not detected, SARS-CoV-2 (PCR) Not detected 07/17/20 16:45: Puncture Site Rr, Base Excess 4.5 H, O2 Saturation 85.6 L, ABG pH 7.36, ABG pCO2 53.0 H, ABG pO2 53.0 L*, ABG HCO3 29.9 H, ABG Total CO2 31.5 H , Adam Test Y, Hemoglobin 1.2, Oxyhemoglobin 86.2 L, Carboxyhemoglobin 2.7 H, Total Hemoglobin 10.2 L, FiO2 % 21.0 ASSESSMENT: Please see below. 1. Right upper lobe pneumonia 2. Right lung mass currently being seen by Dr. Santana 3. Atrial fibrillation 4. [place] CHF 5. Chronic anemia 6. Dementia PLAN: 1. Sliding scale 2. Digoxin Level 3. 9mg Coumadin today 4. T4 5. Decadrone IM Plan and coordination of the patient's care discussed in the presence of Tank Calibrator and nurse. SCRIBED BY: Cassia DELGADO scribed while in presence of service performed by Dr. Eid/Antoinette Martínez APRN on 07/18/20 ([id number])
[2020-07-18] MEDS: ROCEPHIN 1 GM/50 ML D5W 1 GM/50 ML BAG IV SCH (09:47)
[2020-07-18] MEDS: NORVASC PO SCH (09:47)
[2020-07-18] MEDS: NAMENDA PO SCH ×2 (09:47→20:41)
[2020-07-18] MEDS: SYMBICORT 160-4.5 MCG INHALER IH SCH ×2 (09:47→20:41)
[2020-07-18] MEDS: TRIGLIDE PO SCH (09:48)
[2020-07-18] MEDS: ZOLOFT PO SCH (09:48)
[2020-07-18] MEDS: LANOXIN PO SCH (09:48)
[2020-07-18] MEDS: ARICEPT PO SCH (09:48)
[2020-07-18] MEDS: VENTOLIN HFA (PER PUFF-WITH SPACER) IH PRN ×3 (10:46→23:54)
[2020-07-18] MEDS: ZITHROMAX PO SCH (11:16)
[2020-07-18] MEDS: DECADRON IM SCH (11:17)
[2020-07-18] MEDS: HUMULIN R SUBCUT PRN ×3 (11:19→20:43)
--- NOTE | 2020-07-18 14:41 | PN ---
DATE OF SERVICE: 07/17/2020 ADMIT NOTE SUBJECTIVE: The patient was brought to the emergency room by the family because of cough, congestion and shortness of breath. The patient has pneumonia surrounding her mass in the lung which is being followed by pulmonary physician. The patient's atrial blood gasses showed respiratory failure which is more or less chronic with pO2 and pCO2 being around lower 50s. The patient had two liters of oxygen given and the ABG were done after an hour or after Solu-Cortef and antibiotics Rocephin and Zithromax. Blood gasses improved with pO2 of 70 with 92% saturation and pCo2 of 50. His CO2 had gone down by 3, pO2 went up by 18-19 points. The patient is not in any distress. She is feeling better. She is going to be hospitalized with routine telemetry orders and the patient will have telemetry. As far as I know that patient is a DNR. The patient has known pulmonary mass followed by Dr. Santana. Her son, Vic, is her power of trademark attorney for health and he had come during last office visit at the time that all this discussion took place. TIME SPENT: More than 30 minutes. Plan and coordination of the patient's care discussed in the presence of nurse. DEVAN
--- NOTE | 2020-07-18 14:47 | HP ---
DATE OF SERVICE: 07/17/20 HISTORY OF PRESENT ILLNESS: This 79-year-old white female who presents to the Emergency Room complaining of shortness of breath and cough for the past several days. She has a history of anxiety and dementia. PAST MEDICAL HISTORY: Anemia Mass right lung, followed by Dr. Palmer Worsening dementia COPD Left sciatica Diabetes mellitus type 2 Hypertension Atrial fibrillation on Coumadin History of CVA Dyslipidemia Macular degeneration Osteoarthritis CVA Dyslipidemia Chronic kidney disease, Stage 2 Obesity Metabolic syndrome PAST SURGICAL HISTORY: Bilateral knee replacement Colonoscopy 03/10, Dr. Dugan Back surgery by Dr. Bernal Heart catheter 10/03 REVIEW OF SYSTEMS: CONSTITUTIONAL: Positive for fatigue. No night sweats. No malaise, lethargy. No fever or chills. HEENT: Eyes: No visual changes. No eye pain. No eye discharge. ENT: No runny nose. No epistaxis. No sinus pain. No sore throat. No odynophagia. No ear pain. No congestion. RESPIRATORY: Positive for cough. No hemoptysis. Positive for shortness of breath. CARDIOVASCULAR: No angina symptoms. No CHF symptoms. No atypical chest pain for CAD. No palpitations. No PND. No orthopnea. GASTROINTESTINAL: No abdominal pain. No nausea or vomiting. No diarrhea or constipation. No hematemesis. No hematochezia. GENITOURINARY: No urgency. No frequency. No dysuria. No hematuria. No obstructive symptoms. No discharge. No pain. No significant abnormal bleeding. MUSCULOSKELETAL: No musculoskeletal pain. No joint swelling. No arthritis. NEUROLOGICAL: No headache. No neck pain. No syncope. No seizures. No dizziness. PSYCHIATRIC: Not anxious. No depression. No suicidal thoughts. No homicidal thoughts. SKIN: No rash. No lesions. No wounds. ENDOCRINE: No unexplained weight loss. No weight gain. HEMATOLOGIC/LYMPHATIC: No anemia. No purpura. No petechiae. No prolonged or excessive bleeding. No palpable lymph nodes. PERSONAL/FAMILY/SOCIAL HISTORY: She is but she and her healthcare account manager, Girma, live together at home. She is a former smoker. No alcohol or illicit drug use. She no longer drives. MEDICATIONS: Furosemide 40 mg p.o. q.d a.c. Fenofibrate 54 mg p.o. daily Albuterol 90 mcg INH q.6h p.r.n. Digoxin 125 mcg p.o. daily Donepezil 10 mg p.o. daily Memantine 10 mg p.o. b.i.d. Lovastatin 40 mg p.o. q.p.m. Amlodipine 10 mg p.o. daily Metformin 1,000 mg p.o. b.i.d. Lorazepam 1 mg p.o. bedtime Omeprazole 20 mg p.o. b.i.d. Sertraline 50 mg p.o. q.day Vitamin C, M-By-Qiidj-lutein-zeaxan (PreserVision AREDS-2) 250-90-40-1 mg capsule one tab p.o. bedtime Insulin glargine U300 conc Insulin Pen 45 unit subcut q.p.m. Warfarin 6 mg p.o. q.p.m. Budesonide-Formoterol two puff INH b.i.d. ALLERGIES: NKDA PHYSICAL EXAMINATION: VITAL SIGNS: Temperature 98.3, heart rate 83, respirations 24, blood pressure 166/76, pulse ox 83%. Alert and oriented to person and place, not time. HEENT: Head normocephalic, atraumatic. Eyes: Extraocular muscles are intact. Pupils are equal, round and reactive to light and accommodation. Ears: No lesions. Nose appeared normal. Throat: No exudate or erythema. NECK: Supple. No JVD, no carotid bruit. No lymphadenopathy or thyromegaly. LUNGS: Diminished breath sounds with bilateral inspiratory and expiratory wheezing. Percussion note normal. Chest symmetrical. HEART: S1, S2, no S3. No murmur. No cyanosis or clubbing. No ascites. Pulses: Dorsalis pedis and posterior tibial pulses +1 to +2 bilaterally. ABDOMEN: Soft. Nontender. Bowel sounds active. No CVA tenderness. No mass felt. EXTREMITIES: No edema. Full range of motion of all extremities, equal. NEUROLOGIC: No focal deficit. Cranial nerves II through XII are grossly intact. No headache, no double vision or headache. SKIN: Not dry. Intact. Turgor - normal. LYMPHATIC: No palpable lymph nodes/no lymphedema. MUSCULOSKELETAL: Normal joints with no swelling. Muscle tone is normal. ABGs on 2L show white count 10.49, hemoglobin 9.4, hematocrit 30.4, platelets 267. Sodium 136, potassium 4.2, BUN 20, creatinine 0.9, glucose 262. Initial ABGs on room air: 02 sat 85, pH 7.36, pc02 53, p02 53, bicarb 29.9. Total c02 31.5. Repeat ABGs on 2L in the ER showed increase in p02 to 73 and 02 sat up to 94. Respiratory panel by PCR normal. Chest x-ray shows persistent enlargement of the cardiomediastinal silhouette, possible congestive heart failure, bilateral basilar opacities. Previously seen mass in the right upper lobe. CT of the chest shows right upper lobe mass decreased in diameter from 05/11. Right upper lobe pneumonia, small bilateral pleural effusions. ASSESSMENT: 1. Acute respiratory failure 2. Right upper lobe pneumonia 3. Possible CHF 4. Atrial fibrillation 5. Chronic anemia 6. Dementia which is advancing 7. Chronic kidney disease, Stage 2 PLAN: 1. We will admit. 2. Routine telemetry orders. 3. CBC, CMP. 4. INR now and daily. 5. Start Rocephin 1 gm IV daily. 6. Zithromax 500 mg p.o. daily times 3 days. 7. Oxygen at 2L via nasal cannula. 8. Decadron 4 mg IV daily. 9. Symbicort 160 two puffs b.i.d. 10. Albuterol inhaler two puffs t.i.d. scheduled. 11. Sliding scale for insulin. 12. Continue home medications. 13. The patient has received Lasix in the emergency room. 14. Will follow closely. TIME SPENT: More than 70 minutes. MTDD
[2020-07-18] MEDS ORDERED: ATIVAN PO PRN (14:57)
[2020-07-18] MEDS ORDERED: LANTUS SUBCUT SCH (17:00)
[2020-07-18] MEDS ORDERED: COUMADIN PO ONE (17:00)
[2020-07-18] MEDS: MEVACOR PO SCH (17:40)
[2020-07-18] MEDS: PRILOSEC PO SCH (17:41)
[2020-07-18] MEDS: GLUCOPHAGE PO SCH (17:41)
[2020-07-18] MEDS ORDERED: ATIVAN PO SCH (21:00)
[2020-07-18] MEDS ORDERED: ROCEPHIN 1 GM/50 ML D5W 1 GM/50 ML BAG IV SCH (21:00)
[2020-07-19 05:18] LABS: BASOPHILS % (AUTO) 0.2 % (0.0-3.0); EOSINOPHILS % (AUTO) 0.3 % (0.0-7.0); HEMATOCRIT 28.3 % (37.0-47.0); HEMOGLOBIN 8.8 g/dl (12.0-16.0); IMMATURE GRANULOCYTE % (AUTO) 0.3 % (0.0-5.0); LYMPHOCYTES # (AUTO) 0.9 K/uL (0.60-3.4); LYMPHOCYTES % (AUTO) 8.9 (10.0-50.0); MEAN CORPUSCULAR HEMOGLOBIN 27.8 pg (27.0-31.0); MEAN CORPUSCULAR HGB CONC 31.1 (31.8-35.4); MEAN CORPUSCULAR VOLUME 89.3 fl (81.0-99.0); MONOCYTES # (AUTO) 0.7 K/uL (0.4-2.0); MONOCYTES % (AUTO) 7.1 (0-10); NEUTROPHILS # (AUTO) 8.7 K/ul (2.0-6.9); NEUTROPHILS % (AUTO) 83.2 % (42.2-75.2); PLATELET COUNT 263 10^3/uL (140-440); RDW COEFFICIENT OF VARIATION 17.1 % (11.6-14.8); RED BLOOD COUNT 3.17 10^6/ul (4.20-5.40); WHITE BLOOD COUNT 10.42 K/ul (4.6-10.2)
[2020-07-19 05:27] LABS: ALANINE AMINOTRANSFERASE 13.7 U/L (0-35); ALBUMIN 3.59 g/dL (3.5-5.0); ALKALINE PHOSPHATASE 51.1 U/L (53-141); ASPARTATE AMINO TRANSFERASE 20.4 U/L (14-36); BILIRUBIN,TOTAL 0.32 mg/dL (0.2-1.3); BLOOD UREA NITROGEN 26.7 mg/dL (7-17); CALCIUM 8.75 mg/dL (8.4-10.2); CHLORIDE 98.3 mmol/L (98-107); CREATININE 1.34 mg/dL (0.60-1.30); GLUCOSE 109.1 mg/dL (74-106); POTASSIUM 4.04 mmol/L (3.5-5.1); PROTHROMBIN TIME 14.7 SEC (9.3-11.0); SODIUM 137.4 mmol/L (134.5-145); TOTAL PROTEIN 6.43 g/dL (6.3-8.2)
[2020-07-19] MEDS: LASIX TAB PO SCH (05:47)
[2020-07-19] MEDS: PRILOSEC PO SCH (05:48)
[2020-07-19 06:00] VITALS: BP 138/75; TEMP 97.7
[2020-07-19] MEDS: NORVASC PO SCH (08:55)
[2020-07-19] MEDS: TRIGLIDE PO SCH (08:55)
[2020-07-19] MEDS: ZITHROMAX PO SCH (08:56)
[2020-07-19] MEDS: LANOXIN PO SCH (08:56)
[2020-07-19] MEDS: GLUCOPHAGE PO SCH (08:56)
[2020-07-19] MEDS: ROCEPHIN 1 GM/50 ML D5W 1 GM/50 ML BAG IV SCH (08:57)
[2020-07-19] MEDS: DECADRON IM SCH (08:57)
[2020-07-19] MEDS: ZOLOFT PO SCH (08:57)
[2020-07-19] MEDS: NAMENDA PO SCH (08:57)
[2020-07-19] MEDS: ARICEPT PO SCH (08:57)
[2020-07-19] MEDS: SYMBICORT 160-4.5 MCG INHALER IH SCH (08:58)
[2020-07-19] MEDS ORDERED: COUMADIN PO STA (11:53)
--- NOTE | 2020-07-20 09:28 | CM.DICTOOL ---
ADMISSION: 07/17/20 22:34 DISCHARGE: JULY 19, 2020 DATE OF SERVICE: 07/19/20 FINAL DIAGNOSIS RIGHT UPPER LOBE PNEUMONIA RESPIRATORY FAILURE UNDERLYING CHF RIGHT UPPER LOBE LUNG MASS, 1.9 X 2.6CM) SEES DR. 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 THOMAS BILATERAL TKR, DR. Mima JACOBSON COLONOSCOPY, 2019 DR. MEJIA HYSTERECTOMY LAST VITALS Temp Pulse Resp BP Pulse Ox 97.7 F 112 H 20 138/75 96 07/19/20 05:57 07/19/20 08:56 07/19/20 08:00 07/19/20 05:57 07/19/20 10:00 TAKE THESE MEDICATIONS AT HOME Albuterol Sulfate (Albuterol Sulfate (Ventolin Hfa) 18 Gm 1 Puff With Spacer) 2 puff IH Q6H PRN PRN Reason: Bronchospasm Last Admin: 07/18/20 23:54 Dose: 2 puff Documented by: Amlodipine Besylate (Amlodipine Besylate 5 Mg Tablet) 10 mg PO DAILY [facility] Last Admin: 07/19/20 08:55 Dose: 10 mg Documented by: Budesonide/Formoterol Fumarate (Budesonide/Formoterol Fumarate 160/4.5 Mcg Inha ler) 2 puff IH BID [facility] Last Admin: 07/19/20 08:58 Dose: 2 puff Documented by: Digoxin (Digoxin 125 Mcg Tablet) 125 mcg PO DAILY [facility] Last Admin: 07/19/20 08:56 Dose: 125 mcg Documented by: Donepezil HCl (Donepezil Hcl 10 Mg Tablet) 10 mg PO DAILY [facility] Last Admin: 07/19/20 08:57 Dose: 10 mg Documented by: Fenofibrate (Fenofibrate 54 Mg Tablet) 54 mg PO DAILY [facility] Last Admin: 07/19/20 08:55 Dose: 54 mg Documented by: Furosemide (Furosemide 40 Mg Tablet) 40 mg PO QDAC [facility] Last Admin: 07/19/20 05:47 Dose: 40 mg Documented by: Insulin Glargine (Toujeo Solostar) 45 unit SUBCUT QPM [facility] Last Admin: 07/18/20 17:42 Dose: 45 unit Documented by: Lorazepam (Lorazepam 1 Mg Tablet) 1 mg PO BEDTIME [facility] Last Admin: 07/18/20 20:41 Dose: 1 mg Documented by: Lovastatin (Lovastatin 20 Mg Tablet) 40 mg PO QPM [facility] Last Admin: 07/18/20 17:40 Dose: 40 mg Documented by: Memantine (Memantine Hcl 10 Mg Tablet) 10 mg PO BID [facility] Last Admin: 07/19/20 08:57 Dose: 10 mg Documented by: Metformin HCl (Metformin Hcl 500 Mg Tablet) 1,000 mg PO BIDWM [facility] Last Admin: 07/19/20 08:56 Dose: 1,000 mg Documented by: Non-Formulary Medication (Vit C,J-Oh-Tggsh-Lutein-Zeaxan [Preservision Areds-2]) 1 tab PO BEDTIME [facility] Last Admin: 07/18/20 20:42 Dose: Not Given Documented by: Omeprazole (Omeprazole 20 Mg Capsule.Dr) 20 mg PO BIDAC [facility] Last Admin: 07/19/20 05:48 Dose: 20 mg Documented by: Sertraline HCl (Sertraline Hcl 50 Mg Tablet) 50 mg PO DAILY [facility] Last Admin: 07/19/20 08:57 Dose: 50 mg Documented by: Warfarin Sodium (Warfarin Sodium 3 Mg Tablet) 6 mg PO QPM [facility] Last Admin: 07/18/20 17:41 Dose: 6 mg Documented by: Prednisone 20 mg Daily PO MARIANNE for 5 days, then 10 mg Daily PO for 5 days Omnicef 300 mg PO BID for 5 days Ferrous Sulfate 325 mg PO Daily [facility] NOTE: AN ADDITIONAL COUMADIN 6 MG PO WAS GIVEN BEFORE DISCHARGE. ALLERGIES No Known Allergies Allergy (Verified 07/17/20 16:29) DISCONTINUED MEDICATIONS NONE NEW PRESCRIPTIONS: OMNICEF 300 MG BID FOR 5 DAYS PREDNISONE 10 MG TAKE 2 TABS DAILY FOR 5 DAYS, THEN 1 TAB DAILY FOR 5 DAYS FERROUS SULFATE 325 MG TAKE DAILY SMOKING: NOT APPLICABLE DISEASE SPECIFIC EDUCATION: USE OF OXYGEN CONTINUOUSLY AT 2 LITERS USE OF NEBULIZER TREATMENTS NEW MEDICATION DO NOT TAKE ASA, IBUPROFEN, ADVIL OR ALEVE LAB REVIEW: 07/19/20 05:00 07/19/20 05:00 07/19/20 05:00: Sodium 137.4, Potassium 4.04, Chloride 98.3, Carbon Dioxide 33.0 H, Anion Gap 10.14, BUN 26.7 H, Creatinine 1.34 H, Estimated GFR (MDRD) 38.00, BUN/Creatinine Ratio 19.92, Glucose 109.1 H D, Calcium 8.75, Total Bilirubin 0.32, AST 20.4, ALT 13.7, Alkaline Phosphatase 51.1 L, Total Protein 6.43, Albumin 3.59, Globulin 2.84, Albumin/Globulin Ratio 1.26 07/19/20 05:00: PT 14.7 H, INR 1.39 07/19/20 05:00: WBC 10.42 H, RBC 3.17 L, Hgb 8.8 L, Hct 28.3 L, MCV 89.3, MCH 27.8, MCHC 31.1 L, RDW Coeff of Monique 17.1 H, Plt Count 263, Immature Gran % (Auto) 0.3, Neut % (Auto) 83.2 H, Lymph % (Auto) 8.9 L, [place] % (Auto) 7.1, Eos % (Auto) 0.3, Baso % (Auto) 0.2, Neut # (Auto) 8.7 H, Lymph # (Auto) 0.9, [place] # (Auto) 0.7, Eos # (Auto) 0.0, Baso # (Auto) 0.0, Immature Gran # (Auto) 0.0 07/18/20 05:13: Free T4 1.37 PLAN: DISCHARGE: HOME DIET: CONSISTENT CARBOHYDRATE ACTIVITY: GRADUALLY RESUME TOLERATED USE OXYGEN AT 2 LITERS CONTINUOUSLY USE CANE WITH AMBULATION CALL TOMORROW TO SCHEDULE AN APPOINTMENT WITH DR. JACOBSON/JAMARI CARRILLO APRN TO BE SEEN IN 7 DAYS CODE STATUS: FULL CODE MS. SNYDER IS ALERT TO PERSON, PLACE. SHE IS FORGETFUL. SHE LIVES AT HOME WITH HER SIGNIFICANT OTHER, GABRIELA JOSUE, HER SON AND GRANDDAUGHTER. MS. SNYDER IS AGREEABLE TO PLANS FOR DISCHARGE HOME. SHE IS INDEPENDENT WITH ACTIVITIES OF DAILY LIVING. SHE MAY REQUIRE REMINDERS FOR MEDICATIONS AND ASSISTANCE WITH PERSONAL CARE. SHE IS AMBULATORY IN THE ROOM AND TO THE BATHR OOM WITH SBA OF STAFF MEMBERS, HER OXYGEN AND USE OF HER STRAIGHT CANE. MEAL INTAKES ARE GOOD AT 100%. SHE IS CONTINENT OF BOWEL AND BLADDER. HYDRATION STATUS IS GOOD. SKIN IS INTACT AND FREE OF DECUBITUS ULCERS. THE PATIENT HAS A STRAIGHT CANE, OXYGEN AND NEBULIZER AT HOME FOR HER USE. FRENCH JACOBSON MD
--- NOTE | 2020-07-20 13:31 | PN ---
DATE OF SERVICE: 07/18/2020 SUBJECTIVE: The patient was seen and examined with the Nurse Practitioner. The patient's condition is stable. She wants to go home. oxygen saturation is almost 9% on room air, on 2 liters 90-95%. She says that she is feeling a lot better. Appetite has improved. Less short of breath. The patient has a mass in the lungs, she knows about it and it is followed by lung specialist. She doesn't want to talk about it. The patient is a full code. TIME SPENT: More than 30 minutes. Plan and coordination of the patient's care discussed in the presence of nurse. DEVAN
--- NOTE | 2020-07-20 14:51 | DS ---
DATE OF SERVICE: 07/19/20 FINAL DIAGNOSIS: 1. RIGHT UPPER LOBE PNEUMONIA 2. RESPIRATORY FAILURE 3. UNDERLYING CHF 4. RIGHT UPPER LOBE LUNG MASS, 1.9 X 2.6CM) SEES DR. FRANCO 5. ATRIAL FIBRILLATION (COUMADIN) 6. HISTORY OF CVA 7. HYPERTENSION 8. 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 CHRONIC ANEMIA 10. DEMENTIA 11. COPD, OXYGEN USE 12. ACUTE RESPIRATORY FAILURE 13. DIABETES MELLITUS, TYPE 2 14. CHRONIC KIDNEY DISEASE STAGE 2 15. DIVERTICULOSIS 16. DEGENERATIVE DISC DISEASE 17. DYSLIPIDEMIA 18. MACULAR DEGENERATION 19. OSTEOARTHRITIS 20. BACK SURGERY 21. HEART CATH, 2014 DR. THOMAS 22. BILATERAL TKR,DR. Mima JACOBSON 23. COLONOSCOPY, 2019, DR. MEJIA 24. HYSTERECTOMY 25. MACULAR DEGENERATION 26. OSTEOARTHRITIS 27. BACK SURGERY 28. HEART CATH, 2014 DR. THOMAS 29. BILATERAL TKR, DR. Mima JACOBSON 30. COLONOSCOPY, 2019 DR. MEJIA 31. HYSTERECTOMY LAST VITALS Temp Pulse Resp BP Pulse Ox 97.7 F 112 H 20 138/75 96 07/19/20 05:57 07/19/20 08:56 07/19/20 08:00 07/19/20 05:57 07/19/20 10:00 DISCHARGE INSTRUCTIONS: 1. DISCHARGE HOME. 2. USE OXYGEN AT 2 LITERS CONTINUOUSLY. 3. USE CANE WITH AMBULATION. 4. CALL TOMORROW TO SCHEDULE AN APPOINTMENT WITH DR. JACOBSON/JAMARI CARRILLO APRN TO BE SEEN IN 7 DAYS. MEDICATIONS AT DISCHARGE: Albuterol Sulfate (Albuterol Sulfate (Ventolin Hfa) 18 Gm 1 Puff With Spacer) 2 puff IH Q6H PRN PRN Reason: Bronchospasm Last Admin: 07/18/20 23:54 Dose: 2 puff Documented by: Amlodipine Besylate (Amlodipine Besylate 5 Mg Tablet) 10 mg PO DAILY [facility] Last Admin: 07/19/20 08:55 Dose: 10 mg Documented by: Budesonide/Formoterol Fumarate (Budesonide/Formoterol Fumarate 160/4.5 Mcg Inhaler) 2 puff IH BID [facility] Last Admin: 07/19/20 08:58 Dose: 2 puff Documented by: Digoxin (Digoxin 125 Mcg Tablet) 125 mcg PO DAILY [facility] Last Admin: 07/19/20 08:56 Dose: 125 mcg Documented by: Donepezil HCl (Donepezil Hcl 10 Mg Tablet) 10 mg PO DAILY [facility] Last Admin: 07/19/20 08:57 Dose: 10 mg Documented by: Fenofibrate (Fenofibrate 54 Mg Tablet) 54 mg PO DAILY [facility] Last Admin: 07/19/20 08:55 Dose: 54 mg Documented by: Furosemide (Furosemide 40 Mg Tablet) 40 mg PO QDAC [facility] Last Admin: 07/19/20 05:47 Dose: 40 mg Documented by: Insulin Glargine (Toujeo Solostar) 45 unit SUBCUT QPM [facility] Last Admin: 07/18/20 17:42 Dose: 45 unit Documented by: Lorazepam (Lorazepam 1 Mg Tablet) 1 mg PO BEDTIME [facility] Last Admin: 07/18/20 20:41 Dose: 1 mg Documented by: Lovastatin (Lovastatin 20 Mg Tablet) 40 mg PO QPM [facility] Last Admin: 07/18/20 17:40 Dose: 40 mg Documented by: Memantine (Memantine Hcl 10 Mg Tablet) 10 mg PO BID [facility] Last Admin: 07/19/20 08:57 Dose: 10 mg Documented by: Metformin HCl (Metformin Hcl 500 Mg Tablet) 1,000 mg PO BIDWM [facility] Last Admin: 07/19/20 08:56 Dose: 1,000 mg Documented by: Non-Formulary Medication (Vit C,K-Qr-Mqwwp-Lutein-Zeaxan ) 1 tab PO BEDTIME [facility] Last Admin: 07/18/20 20:42 Dose: Not Given Documented by: Omeprazole (Omeprazole 20 Mg Capsule.Dr) 20 mg PO BIDAC [facility] Last Admin: 07/19/20 05:48 Dose: 20 mg Documented by: Sertraline HCl (Sertraline Hcl 50 Mg Tablet) 50 mg PO DAILY [facility] Last Admin: 07/19/20 08:57 Dose: 50 mg Documented by: Warfarin Sodium (Warfarin Sodium 3 Mg Tablet) 6 mg PO QPM [facility] Last Admin: 07/18/20 17:41 Dose: 6 mg Documented by: Prednisone 20 mg Daily PO MARIANNE for 5 days, then 10 mg Daily PO for 5 days Omnicef 300 mg PO BID for 5 days Ferrous Sulfate 325 mg PO Daily [facility] NOTE: AN ADDITIONAL COUMADIN 6 MG PO WAS GIVEN BEFORE DISCHARGE. NEW PRESCRIPTIONS: OMNICEF 300 MG BID FOR 5 DAYS PREDNISONE 10 MG TAKE 2 TABS DAILY FOR 5 DAYS, THEN 1 TAB DAILY FOR 5 DAYS FERROUS SULFATE 325 MG TAKE DAILY DISCONTINUED MEDICATIONS: NONE DIET INSTRUCTIONS: CONSISTENT CARBOHYDRATE ACTIVITY: GRADUALLY RESUME TOLERATED SMOKING: NOT APPLICABLE DISEASE SPECIFIC EDUCATION: USE OF OXYGEN CONTINUOUSLY AT 2 LITERS USE OF NEBULIZER TREATMENTS NEW MEDICATION DO NOT TAKE ASA, IBUPROFEN, ADVIL OR ALEVE HOSPITAL COURSE: 79-year-old white female hospitalized with acute exacerbation of COPD. The patient's oxygen saturation was 85%. The patient's condition has improved. she was put on antibiotics, Rocephin and Zithromax along with steroids. Her condition and breathing improved. The patient had questionable CHF on chest x- ray which didn't show on CT scan. The patient was given IV Lasix on admission by ER physician. In any case, the patient's condition has improved with antibiotics and steroids. She is feeling better. She is to go home on antibiotics and steroids with iron supplements. She is going to be on Prednisone 20 mg daily times 5 days, 10 mg for 5 days. Ferrous Sulfate is 325 mg one a day for 60 days. Omnicef 300 mg twice a day for 5 days will be given. Condition is stable. The patient was recommended colonoscopy and further recommendation by burr bench operator declined. Advised not to take any nonsteroidal antiinflammatory. Fashion [employer] evaluation for anemia declined. Condition is stable. The patient is on Coumadin for atrial fibrillation. Hemoglobin and hematocrit will be monitored along with INR. Extra dose of Coumadin was given today. Condition at the time of discharge stable. Note: The patient's blood gases on 07/17/20 done on 28% of FI02 showed p02 of 73, pc02 of 50, pH 7.39 with 94% saturation. The patient is a full code. The patient is strongly advised to followup with Dr. Franco. GI referral and hematologic consultation for anemia declined. TIME SPENT: More than 60 minutes. DEVAN
--- NOTE | 2020-07-21 08:18 | PN ---
BILLING 07/17/20 ADMISSION DAY LEVEL 5 07/18/20 INTERMEDIATE 07/19/20 FINAL DAY D IN DISCHARGE DEVAN
--- NOTE | 2020-07-21 10:11 | PN ---
DATE OF SERVICE: 07/19/2020 SUBJECTIVE: 79 year old white female was hospitalized with acute bronchitis and COPD. The patient's condition has improved remarkably. She is feeling a lot better. Her hydration status seems to have improved. Pulse ox is 96% on 2 liters. She wants to go home. REVIEW OF SYSTEMS: CONSTITUTIONAL: No night sweats. No fatigue, malaise, lethargy. No fever or chills. HEENT: Eyes: No visual changes. No eye pain. No eye discharge. ENT: No runny nose. No epistaxis. No sinus pain. No sore throat. No odynophagia. No congestion. RESPIRATORY: No cough, no congestion. No hemoptysis. Mild shortness of breath on exertion. CARDIOVASCULAR: No angina symptoms. No CHF symptoms. No atypical chest pain for CAD. No palpitations. No PND. No orthopnea. GASTROINTESTINAL: No abdominal pain. No nausea or vomiting. No diarrhea or constipation. No hematemesis. No hematochezia. GENITOURINARY: No urgency. No frequency. No dysuria. No hematuria. No obstructive symptoms. No discharge. No pain. No significant abnormal bleeding. MUSCULOSKELETAL: No musculoskeletal pain; no joint swelling. NEUROLOGICAL: No headache. No neck pain. No syncope. No seizures. No dizziness. PSYCHIATRIC: Not anxious. No depression. No suicidal thoughts. No homicidal thoughts. SKIN: No rash. No lesions. No wounds. ENDOCRINE: No unexplained weight loss. No weight gain. HEMATOLOGIC/LYMPHATIC: No anemia. No purpura. No petechiae. No prolonged or excessive bleeding. No palpable lymph nodes. PHYSICAL EXAMINATION: VITAL SIGNS: Temperature 97.7, pulse 61, respiratory rate 20, blood pressure 138/75 and pulse ox 96%. HEENT: Head normocephalic, atraumatic. Eyes: Extraocular muscles are intact. Pupils are equal, round and reactive to light and accommodation. Ears: No lesions. Nose appeared normal. Throat: No exudate or erythema. NECK: Supple. No JVD, no carotid bruit. No lymphadenopathy or thyromegaly. LUNGS: Decreased breath sounds but clear to auscultation. Percussion note normal. Chest symmetrical. HEART: S1, S2, no S3. No murmurs. No cyanosis or clubbing. No ascites. Pulses: Dorsalis pedis and posterior tibial pulses +1 to +2 bilaterally. ABDOMEN: Soft. Nontender. Bowel sounds active. No CVA tenderness. No mass felt. EXTREMITIES: No edema. Full range of motion of all extremities, equal. NEUROLOGIC: No focal deficit. Cranial nerves II through XII are grossly intact. No headache. No double vision. SKIN: Not dry. Intact. Turgor - normal. LYMPHATIC: No palpable lymph nodes/no lymphedema. MUSCULOSKELETAL: Normal joints with no swelling. Muscle tone is normal. LABS: hgb 8.8, hct 28, WBC 10,000 normal differential, creatinine 1.3, BUN 26, potassium 4 ASSESSMENT: 1. Acute bronchitis exacerbation seems to be under control 2. CHF, questionable with symptoms or signs of it. 3. The patient's tumor size in the lung seems to be less. Followed by Dr. Santana. Strongly advised to followup with him 4. Anemia, recommended colonoscopy which she has declined. PLAN: 1. Discharge the patient home on steroids, NEBS and antibiotics 2. Continue the rest of the medications 3. The patient is strongly advised to lose weight, morbid. The patient has obesity with BMI of 37. 4. Pulmonary rehab explained to the patient. 5. Iron supplements, Strongly advised to avoid nonsteroidal antiinflammatory 6. Instruction to come back in 5 days. TIME SPENT: More than 30 minutes. Plan and coordination of the patient's care discussed in the presence of nurse. DEVAN
== END 2020-07-19 13:35 | disposition home or self-care (01) | DRG 195 ==
LOC: ED 16:24 → MEDSURG A 22:34
PROVIDERS: ADMIT Internal Medicine; ATTEND Internal Medicine
DX: E11.9 Type 2 diabetes mellitus without complications; E78.5 Hyperlipidemia, unspecified; I48.91 Unspecified atrial fibrillation; J18.9 Pneumonia, unspecified organism; N18.2 Chronic kidney disease, stage 2 (mild); R60.0 Localized edema; F03.90 Unspecified dementia, unspecified severity, without behavioral disturbance, psychotic disturbance, mood disturbance, and anxiety; J44.9 Chronic obstructive pulmonary disease, unspecified; I10 Essential (primary) hypertension; R00.2 Palpitations; Z20.822 Contact with and (suspected) exposure to COVID-19; R07.9 Chest pain, unspecified; R06.02 Shortness of breath; R91.1 Solitary pulmonary nodule; M19.90 Unspecified osteoarthritis, unspecified site; I50.9 Heart failure, unspecified; Z99.81 Dependence on supplemental oxygen; Z79.01 Long term (current) use of anticoagulants; D64.9 Anemia, unspecified

== ENCOUNTER 2020-08-31 13:27 | Inpatient (IN) ==
[2020-08-31] MEDS ORDERED: VENTOLIN HFA (PER PUFF-WITH SPACER) IH ONE (15:08)
[2020-08-31] MEDS ORDERED: ATROVENT HFA INHALER (PER PUFF-WITH SPACER) IH ONE (15:08)
[2020-08-31 15:37] LABS: BASOPHILS % (AUTO) 0.2 % (0.0-3.0); EOSINOPHILS # (AUTO) 0.1 K/ul (0.0-0.7); EOSINOPHILS % (AUTO) 1.1 % (0.0-7.0); HEMATOCRIT 34.2 % (37.0-47.0); HEMOGLOBIN 10.4 g/dl (12.0-16.0); IMMATURE GRANULOCYTE # (AUTO) 0.1 (0.0-1.0); LYMPHOCYTES # (AUTO) 0.9 K/uL (0.60-3.4); LYMPHOCYTES % (AUTO) 8.3 (10.0-50.0); MEAN CORPUSCULAR HEMOGLOBIN 27.2 pg (27.0-31.0); MEAN CORPUSCULAR HGB CONC 30.4 (31.8-35.4); MEAN CORPUSCULAR VOLUME 89.5 fl (81.0-99.0); MONOCYTES # (AUTO) 0.7 K/uL (0.4-2.0); MONOCYTES % (AUTO) 6.9 (0-10); NEUTROPHILS # (AUTO) 8.6 K/ul (2.0-6.9); NEUTROPHILS % (AUTO) 82.5 % (42.2-75.2); PLATELET COUNT 231 10^3/uL (140-440); RDW COEFFICIENT OF VARIATION 16.7 % (11.6-14.8); RED BLOOD COUNT 3.82 10^6/ul (4.20-5.40); WHITE BLOOD COUNT 10.45 K/ul (4.6-10.2)
[2020-08-31 15:44] LABS: ABG O2 HGB 96.4 % (95-100); ABG PH 7.42 (7.35-7.45); BEecf 12.5 (-2.0-3.0); COHb 2.5 (0.5-1.5); MetHb 0.8 (0-1.5); TCO2 38.7 (19-24); sO2 98.7 % (94-98); tHb 9.8 g/dl (11.7-17.4)
[2020-08-31 15:51] LABS: ALANINE AMINOTRANSFERASE 12.9 U/L (0-35); ALBUMIN 3.98 g/dL (3.5-5.0); ALKALINE PHOSPHATASE 71.7 U/L (53-141); ASPARTATE AMINO TRANSFERASE 20.8 U/L (14-36); BILIRUBIN,TOTAL 0.53 mg/dL (0.2-1.3); CALCIUM 8.89 mg/dL (8.4-10.2); CARBON DIOXIDE 37.4 mmol/L (22-30.0); CREATINE KINASE 47.3 U/L (30-135); CREATININE 1.1 mg/dL (0.60-1.30); GLUCOSE 223.1 mg/dL (74-106); POTASSIUM 4.36 mmol/L (3.5-5.1); SODIUM 135.9 mmol/L (134.5-145)
--- NOTE | 2020-08-31 15:57 | CT ---
EXAM: CT chest without contrast. HISTORY: Chronic cough. COMPARISON: 07/17/2020, 05/17/2020, 04/09/2019. TECHNIQUE: Multiple axial images of the chest were obtained without intravenous contrast. Images we re reformatted in the sagittal and coronal planes. FINDINGS: There is extensive consolidation in the right upper lobe with more diffuse ground glass op acities throughout the remainder of the right upper lobe. Consolidation is more extensive than on th e prior study. Small amount of consolidation within superior segment right lower lobe probably prese nt as well. There is a moderate right pleural effusion. Small left pleural effusion noted with mild ground-glass opacities in the left lung. There is no pneumothorax. Heart enlarged. There is no pericardial effusion. Atherosclerotic calcifications present. There is evaluation for lymphadenopathy. Limited by lack of intravenous contrast. No other calcified medias tinal and right hilar lymph nodes present. Limited images of the upper abdomen demonstrate no acute abnormality. Degenerative changes seen throughout the spine. Lumbar fusion changes incompletely imaged. IMPRESSION: 1. Increased right upper lobe consolidation, which given abnormal findings on prior imaging would ra ise concern for underlying neoplasm and possibly postobstructive pneumonia. Consider bronchoscopy an d sampling. 2. Moderate right pleural effusion and small left pleural effusion. 3. Nonspecific bilateral ground-glass opacities. All CT scans are performed using dose optimization techniques as appropriate to the performed exam an d include at least one of the following: Automated exposure control, adjustment of the mA and/or kV according t o size, and the use of iterative reconstruction technique.
--- NOTE | 2020-08-31 16:03 | ED.PDOC ---
General ED Provider: Dr. CARLENE CHUN Chief Complaint: Shortness of Air Stated Complaint: short of breath-progressively worsening; Denies pain Time Seen by Provider: 08/31/20 14:40 Mode of Arrival: Walk-In Information Source: Patient Exam Limitations: No limitations Primary Care Provider: FRENCH EID Seen Within Last 72 Hours for Same Complaint By: ED Nursing and Triage Documentation Reviewed and Agree: Yes Does patient meet sepsis criteria?: No System Inflammatory Response Syndrome: Not Applicable Sepsis Protocol: For patient's 13 years and over: Temp is 96.8 and below OR 101 and greater Pulse >90 BPM Resp >20/minute Acutely Altered Mental Status Are patient's symptoms suggestive of a new infection, such as: -Pneumonia -Skin, Soft Tissue -Endocarditis -UTI -Bone, Joint Infection -Implantable Device -Acute Abdominal Infection -Wound Infection -Meningitis -Blood Stream Catheter Infection -Unknown Respiratory Complaint Exam Shortness of Air Complaint/Exam Onset/Duration: 2-3 days Symptoms Are: Still present Timing: Intermittent Initial Severity: Moderate Current Severity: Mild Character: Reports Dyspnea at rest, Dyspnea on exertion and Orthopnea Aggravating: Reports Movement and Recumbent position Alleviating: Reports Bronchodilators and Oxygen Associated Signs and Symptoms: Reports Cough and Wheezing Related History: Reports Similar episode History of Healthcare-Acquired Pneumonia: No Pulmonary Embolism Risk Factors: Reports None Cardiac Risk Factors: Reports None Pseudomonas Risk Factors: Reports None Tuberculosis Risk Factors: Reports None Home Oxygen Use: Yes Recent Stress Test: No Recent Echo/LV Function: No Respiratory Distress: Mild Stridor Present: No Tracheal Deviation: No Subcutaneous Emphysema: No Accessory Muscle Use: No Retractions: Not Present Diminished Breath Sounds: Yes Prolonged Expiratory Phase: No Unable to Speak Full Sentences: Yes Fatigue: Yes Leg Swelling: Yes Greer's Sign Present: Yes Grunting Respirations: Yes Kussmaul Respirations: Yes Differential Diagnoses: Airway Obstruction, Chest Wall Pain and COPD Exacerbation Review of Systems Review Of Systems Constitutional: Reports Malaise and Weakness Eyes: Reports No symptoms Ears, Nose, Mouth, Throat: Reports No symptoms Respiratory: Reports Cough, Short of air and Wheezing Cardiac: Reports No symptoms GI: Reports No symptoms : Reports No symptoms Musculoskeletal: Reports No symptoms Skin: Reports No symptoms Neurological: Reports No symptoms Endocrine: Reports No symptoms Hematologic/Lymphatic: Reports No symptoms All Other Systems: Reviewed and Negative [facility] Medical History A-fib Anxiety Arthritis CAD (coronary artery disease) COPD (chronic obstructive pulmonary disease) CVA (cerebral vascular accident) Depression Diabetes GERD (gastroesophageal reflux disease) Hyperlipidemia Hypertension Lung tumor (~2020) Myocardial infarction Sensorineural hearing loss (SNHL) of both ears Family History BROTHER Arthritis SISTER COPD (chronic obstructive pulmonary disease) FATHER CVA (cerebral vascular accident) Mother Hypertension Mother Diabetes SISTER Diabetes Social History Smoking and tobacco status: Former smoker Alcohol intake: never Number of children: 2 Number of grandchildren: 3 Highest education level completed: Associate degree: academic program Pets and animals: Yes Sexually active: No Do you think of yourself as: straight/heterosexual Current gender identity: female Current diet type/program: diabetic Well-balanced diet: rarely Caffeine: Yes Water heater temperature set < 120 degrees: Yes Working smoke detector in home: Yes Fire extinguisher in home: Yes Carbon monoxide detector in home: Yes Firearms in home: Yes Firearms unloaded and locked: Yes Surgical History History of hysterectomy Total knee replacement status Female Reproductive History Menstrual Hx Hysterectomy: Yes Hx Tubal Ligation: No Physical Exam Physical Exam Appearance: Reports Well-appearing, Well-nourished and Obese Ill-appearing: Mild Pain Distress: Mild Eyes: Reports ANTONINO, EOMI, Conjunctiva clear and Conjunctiva inflammed ENT: Reports Ears normal, Nose normal and Oropharynx normal Neck: Supple Respiratory: Reports Airway patent, Breath sounds clear, Breath sounds dimi nished, Respirations nonlabored and Wheezes Cardiovascular: Reports RRR, Pulses normal, No rub and No murmur GI/: Reports Soft, Nontender, No masses, Bowel sounds normal and Tender (RUQ w/o guarding) Musculoskeletal: Reports Normal strength and ROM intact Skin: Reports Warm, Pale and Diaphoretic Neurological: Reports Sensation intact, Motor intact, Reflexes intact, Cranial nerves intact, Alert, Oriented and Disoriented Psychiatric: Reports Affect appropriate, Mood appropriate and Anxious Interpretation Radiology Interpretation Exam Interpreted: CT Scan (Increased right upper lobe consolidation, which given abnormal findings on prior imaging would raise concern for underlying neoplasm and possibly postobstructive pneumonia. Consider bronchoscopy and sampling. 2. Moderate right pleural effusion and small left pleural effusion. 3. Nonspecific bilat) EKG Interpretation Time of EKG #1: 15:52 Rate: Normal Ectopy: None [place]: Left Interpretation: atrial fib/ can not r/o anteroseptal infarct age undetermined Physician Notification Case Discussed Physician Notified: Dr Eid Discussed case : Will admit patient Time of Notification: 17:50 Critical Care Note Critical Care Note Total Critical Care Time (mins): 30 Course Course Hematology/Chemistry: 09/05/20 04:38 09/05/20 04:38 Orders, Labs, Meds: Lab Review 08/31/20 08/31/20 08/31/20 15:20 15:31 15:31 WBC 10.45 H RBC 3.82 L Hgb 10.4 L Hct 34.2 L MCV 89.5 MCH 27.2 MCHC 30.4 L RDW Coeff of Monique 16.7 H Plt Count 231 Immature Gran % (Auto) 1.0 Neut % (Auto) 82.5 H Lymph % (Auto) 8.[address] % (Auto) 6.9 Eos % (Auto) 1.1 Baso % (Auto) 0.2 Neut # (Auto) 8.6 H Lymph # (Auto) 0.9 Lane # (Auto) 0.7 Eos # (Auto) 0.1 Baso # (Auto) 0.0 Immature Gran # (Auto) 0.1 Puncture Site Rrad Base Excess 12.5 H O2 Saturation 98.7 H ABG pH 7.42 ABG pCO2 57.0 H ABG pO2 120.0 H ABG HCO3 37.0 H ABG Total CO2 38.7 H Adam Test Pos Hemoglobin 0.8 Oxyhemoglobin 96.4 Carboxyhemoglobin 2.5 H Total Hemoglobin 9.8 L O2 Delivery Device Cannula Oxygen Liter Flow 3.00 Sodium 135.9 Potassium 4.36 Chloride 95.0 L Carbon Dioxide 37.4 H Anion Gap 7.86 BUN 23.0 H Creatinine 1.10 Estimated GFR (MDRD) 48.00 BUN/Creatinine Ratio 20.90 Glucose 223.1 H Calcium 8.89 Total Bilirubin 0.53 AST 20.8 ALT 12.9 Alkaline Phosphatase 71.7 Total Creatine Kinase 47.3 Total Protein 7.00 Albumin 3.98 Globulin 3.02 Albumin/Globulin Ratio 1.31 Adenovirus (PCR) B. pertussis DNA (PCR) B.parapertussis DNA PCR C. pneumoniae DNA (PCR) Coronavirus OC43 (PCR) Coronavirus HKU1 (PCR) Coronavirus 229E (PCR) Coronavirus NL63 (PCR) Human Metapneumovir PCR Influenza Type A (PCR) Influenza B (RT-PCR) M. pneumoniae (PCR) Parainfluenza 1 (PCR) Parainfluenza 2 (PCR) Parainfluenza 3 (PCR) Parainfluenza 4 (PCR) RSV (PCR) Entero/Rhino (PCR) SARS-CoV-2 (PCR) 08/31/20 16:58 WBC RBC Hgb Hct MCV MCH MCHC RDW Coeff of Monique Plt Count Immature Gran % (Auto) Neut % (Auto) Lymph % (Auto) Lane % (Auto) Eos % (Auto) Baso % (Auto) Neut # (Auto) Lymph # (Auto) Lane # (Auto) Eos # (Auto) Baso # (Auto) Immature Gran # (Auto) Puncture Site Base Excess O2 Saturation ABG pH ABG pCO2 ABG pO2 ABG HCO3 ABG Total CO2 Adam Test Hemoglobin Oxyhemoglobin Carboxyhemoglobin Total Hemoglobin O2 Delivery Device Oxygen Liter Flow Sodium Potassium Chloride Carbon Dioxide Anion Gap BUN Creatinine Estimated GFR (MDRD) BUN/Creatinine Ratio Glucose Calcium Total Bilirubin AST ALT Alkaline Phosphatase Total Creatine Kinase Total Protein Albumin Globulin Albumin/Globulin Ratio Adenovirus (PCR) Not detected B. pertussis DNA (PCR) Not detected B.parapertussis DNA PCR Not detected C. pneumoniae DNA (PCR) Not detected Coronavirus OC43 (PCR) Not detected Coronavirus HKU1 (PCR) Not detected Coronavirus 229E (PCR) Not detected Coronavirus NL63 (PCR) Not detected Human Metapneumovir PCR Not detected Influenza Type A (PCR) Not detected Influenza B (RT-PCR) Not detected M. pneumoniae (PCR) Not detected Parainfluenza 1 (PCR) Not detected Parainfluenza 2 (PCR) Not detected Parainfluenza 3 (PCR) Not detected Parainfluenza 4 (PCR) Not detected RSV (PCR) Not detected Entero/Rhino (PCR) Not detected SARS-CoV-2 (PCR) Not detected Orders Category Date Time Status ADMIT PATIENT INPATIENT .TO [facility] (MONITORED BED) ADMISSION 08/31/20 16:26 Completed ABG DRAW REQUEST Stat CARDIO 08/31/20 15:06 Completed EKG-(ED ONLY) Stat CARDIO 08/31/20 15:06 Completed METERED DOSE INHALATION Routine CARDIO 08/31/20 15:08 Completed OXYGEN Routine CARDIO 08/31/20 15:06 Completed TELEMETRY MONITORING TELE CARE 08/31/20 16:26 Completed IV [ED IV/MEDIPORT/POWERPORT] .ONCE EMERGENCY 08/31/20 15:07 Completed ABG COOX Stat LAB 08/31/20 15:20 Completed BLOOD CULTURE (ED ONLY) Stat LAB 08/31/20 15:31 Completed CBC W/ AUTO DIFF Stat LAB 08/31/20 15:31 Completed CMP [COMPREHENSIVE METABOLIC PANEL] Stat LAB 08/31/20 15:31 Completed CPK [CREATINE KINASE] Stat LAB 08/31/20 15:31 Completed RESPIRATORY PANEL 2.1 (PCR) Stat LAB 08/31/20 16:58 Completed 0.9 % Sodium Chloride [Saline Flush] MEDS 08/31/20 15:06 Discontinued 1 syr IVF PRN PRN Albuterol Inhaler(with Spacer) [Ventolin Hfa (Per Puff- MEDS 08/31/20 15:08 Discontinued with Spacer)] 2 puff IH ONCE ONE Azithromycin [Zithromax] MEDS 08/31/20 16:25 Discontinued 500 mg PO ONCE ONE Ceftriaxone/D5w 1 gm Premix [Rocephin 1 gm/50 ml D5w] MEDS 09/01/20 09:00 Discontinued 1 gm in 50 ml IV DAILY Ceftriaxone/D5w 1 gm Premix [Rocephin 1 gm/50 ml D5w] MEDS 08/31/20 16:33 Discontinued 1 gm in 50 ml IV ONCE Ipratropium Inhaler(Spacer) [Atrovent Hfa Inhaler (Per MEDS 08/31/20 15:08 Discontinued Puff-with Spacer)] 2 puff IH ONCE ONE Methylprednisolone Sod Succ/Pf [Solu-Medrol 125 mg] MEDS 08/31/20 16:18 Discontinued 125 [address] IVP ON[address] CHEST W/O CONTRAST Stat RADS 08/31/20 15:07 Completed Medications Discontinued Medications Generic Name Dose Route Start Last Admin Trade Name Freq PRN Reason Stop Dose Admin Acetaminophen 650 mg 05/13/21 19:33 09/05/20 02:00 Acetaminophen 325 Mg Tablet PO 650 mg Q4H PRN Administration Headache Albuterol Sulfate 2 puff 08/31/20 15:08 08/31/20 15:40 Albuterol Sulfate (Ventolin Hfa) 18 Gm 1 Puff With Spacer IH 08/31/20 15:09 2 puff ONCE ONE Administration Albuterol Sulfate 2 puff 09/01/20 00:00 09/05/20 11:04 Albuterol Sulfate (Ventolin Hfa) 18 Gm 1 Puff With Spacer IH 2 puff RTQ6H MARIANNE Administration Albuterol Sulfate 1 puff 08/31/20 19:41 09/04/20 14:49 Albuterol Sulfate (Ventolin Hfa) 18 Gm 1 Puff With Spacer IH 1 puff Q6H PRN Administration Wheezing Amlodipine Besylate 10 mg 09/01/20 09:00 09/05/20 08:32 Amlodipine Besylate 5 Mg Tablet PO 10 mg DAILY MARIANNE Administration Atropine Sulfate 0.5 mg 08/31/20 19:33 Atropine Sulfate Inj 1 Mg/10 Ml Disp.Syrin IVP ONCE PRN Symptomatic Bradycardia Azithromycin 500 mg 08/31/20 16:25 08/31/20 16:41 Azithromycin 250 Mg Tablet PO 08/31/20 16:26 500 mg ONCE ONE Administration Azithromycin 500 mg 09/01/20 09:00 09/02/20 08:43 Azithromycin 250 Mg Tablet PO 09/03/20 08:59 500 mg DAILY MARIANNE Administration Benazepril HCl 40 mg 09/01/20 09:00 09/05/20 08:32 Benazepril Hcl 10 Mg Tablet PO 40 mg DAILY MARIANNE Administration Cefdinir 300 mg 09/05/20 10:51 09/05/20 11:22 Cefdinir 300 Mg Capsule PO 09/05/20 10:52 300 mg ONCE ONE Administration Digoxin 125 mcg 09/01/20 09:00 09/05/20 08:33 Digoxin 125 Mcg Tablet PO Not Given DAILY MARIANNE Donepezil HCl 10 mg 09/01/20 09:00 09/05/20 08:33 Donepezil Hcl 10 Mg Tablet PO 10 mg DAILY MARIANNE Administration Fenofibrate 54 mg 09/01/20 09:00 09/05/20 08:33 Fenofibrate 54 Mg Tablet PO 54 mg DAILY MARIANNE Administration Ferrous Sulfate 324 mg 09/01/20 09:00 09/05/20 08:32 Ferrous Sulfate 324 Mg Tablet.Dr PO 324 mg DAILY MARIANNE Administration Furosemide 40 mg 09/01/20 06:30 09/05/20 05:54 Furosemide 40 Mg Tablet PO 40 mg QDAC MARIANNE Administration Gabapentin 300 mg 09/01/20 09:00 09/05/20 09:55 Gabapentin 300 Mg Capsule PO Not Given DAILY MARIANNE Hydrocortisone Sodium Succinate 125 mg 08/31/20 20:00 09/01/20 04:39 Hydrocortisone Sod Succ/Pf 250 Mg/2 Ml Vial IVP 125 mg Q8H MARIANNE Administration Hydrocortisone Sodium Succinate 125 mg 09/01/20 13:00 09/04/20 05:15 Hydrocortisone Sod Succ/Pf 250 Mg/2 Ml Vial IVP 125 mg Q8HR MARIANNE Administration CEFTRIAXONE/D5W 1 GM PREMIX 1 gm in 50 mls @ 75 mls/hr 09/01/20 09:00 09/03/20 08:43 Rocephin 1 Gm/50 Ml D5w IV 09/04/20 08:59 75 mls/hr DAILY MARIANNE Administration CEFTRIAXONE/D5W 1 GM PREMIX 1 gm in 50 mls @ 75 mls/hr 08/31/20 16:33 08/31/20 16:52 Rocephin 1 Gm/50 Ml D5w IV 08/31/20 17:12 75 mls/hr ONCE STA Administration CEFTRIAXONE/D5W 1 GM PREMIX 1 gm in 50 mls @ 75 mls/hr 09/04/20 09:14 09/04/20 09:24 Rocephin 1 Gm/50 Ml D5w IV 09/04/20 09:53 75 mls/hr ONCE ONE Administration Insulin Glargine 45 unit 09/01/20 17:00 Insulin Glargine,Hum.Rec.Anlog 100 Units/Ml SUBCUT QPM [facility] Insulin Human Regular 0 unit 09/01/20 04:32 09/05/20 11:22 Insulin Regular, Human 100 Unit/Ml (3ml) Vial SUBCUT 4 unit PRN PRN Administration Hyperglycemia Protocol Ipratropium [place] 2 puff 08/31/20 15:08 08/31/20 15:40 Ipratropium [place] 12.9 Gm Hfa Inhaler Per Puff With Spacer IH 08/31/20 15:09 2 puff ONCE ONE Administration Ipratropium [place] 2 puff 09/01/20 00:00 09/05/20 11:03 Ipratropium [place] 12.9 Gm Hfa Inhaler Per Puff With Spacer IH 2 puff RTQ6H MARIANNE Administration Lorazepam 1 mg 08/31/20 21:00 08/31/20 20:49 Lorazepam 0.5 Mg Tablet PO 1 mg BEDTIME MARIANNE Administration Lorazepam 1 mg 09/01/20 09:00 Lorazepam 1 Mg Tablet PO DAILY MARIANNE Lorazepam 1 mg 09/01/20 07:12 Lorazepam 1 Mg Tablet PO DAILY PRN Anxiety Lorazepam 1 mg 09/01/20 21:00 Lorazepam 1 Mg Tablet PO BEDTIME MARIANNE Lorazepam 1 mg 09/01/20 08:39 09/02/20 14:26 Lorazepam 1 Mg Tablet PO 1 mg DAILY PRN Administration Anxiety Lorazepam 1 mg 09/01/20 09:00 09/05/20 08:32 Lorazepam 1 Mg Tablet PO 1 mg BID MARIANNE Administration Lovastatin 40 mg 09/01/20 17:00 09/04/20 17:30 Lovastatin 20 Mg Tablet PO 40 mg QPM MARIANNE Administration Memantine 10 mg 08/31/20 21:00 09/05/20 08:32 Memantine Hcl 10 Mg Tablet PO 10 mg BID MARIANNE Administration Metformin HCl 1,000 mg 08/31/20 21:00 08/31/20 20:49 Metformin Hcl 500 Mg Tablet PO 1,000 mg BID MARIANNE Administration Methylprednisolone Sodium Succinate 125 mg 08/31/20 16:18 08/31/20 16:41 Methylprednisolone Sod Succ/Pf 125 Mg/2 Ml Vial IVP 08/31/20 16:19 125 mg ONCE ONE Administration Nitroglycerin 0.4 mg 08/31/20 19:33 Nitroglycerin 0.4 Mg Tab.Subl SL Q5MIN X 3 DOSES PRN Chest Pain Non-Formulary Medication 45 unit 08/31/20 21:00 08/31/20 20:58 Insulin Glargine U-300 Conc [Toujeo Solostar U-300 Insulin] SUBCUT 45 unit BEDTIME MARIANNE Administration Non-Formulary Medication 1 tab 08/31/20 21:00 09/04/20 20:16 Vit C,M-Ug-Ziipp-Lutein-Zeaxan [Preservision Areds-2] PO Not Given BEDTIME MARIANNE Non-Formulary Medication 60 unit 09/01/20 21:00 09/04/20 20:15 Insulin Glargine U-300 Conc [Toujeo Solostar U-300 Insulin] SUBCUT 60 unit BEDTIME MARIANNE Administration Omeprazole 20 mg 08/31/20 21:00 08/31/20 20:49 Omeprazole 20 Mg Capsule. PO 20 mg BID MARIANNE Administration Omeprazole 20 mg 09/01/20 09:00 09/05/20 05:54 Omeprazole 20 Mg Capsule. PO 20 mg BIDAC MARIANNE Administration Prednisone 10 mg 09/04/20 17:30 09/05/20 08:32 Prednisone 10 Mg Tablet PO 10 mg BIDWM MARIANNE Administration Sertraline HCl 50 mg 08/31/20 20:00 09/05/20 08:32 Sertraline Hcl 50 Mg Tablet PO 50 mg DAILY MARIANNE Administration Sodium Chloride 1 syr 08/31/20 15:06 09/01/20 13:53 0.9% Sodium Chloride 10 Ml Disp.Syrin IVF 1 syr PRN PRN Administration To flush IV Sodium Chloride 1 syr 08/31/20 21:00 09/05/20 12:50 0.9% Sodium Chloride 10 Ml Disp.Syrin IVF Not Given Q8HR MARIANNE Warfarin Sodium 6 mg 09/01/20 17:00 09/04/20 17:41 Warfarin Sodium 3 Mg Tablet PO 6 mg QPM MARIANNE Administration Warfarin Sodium 3 mg 09/01/20 17:00 09/01/20 16:31 Warfarin Sodium 3 Mg Tablet PO 09/01/20 17:30 3 mg QPM MARIANNE Administration Warfarin Sodium 3 mg 09/04/20 17:30 09/04/20 17:28 Warfarin Sodium 3 Mg Tablet PO 09/04/20 17:31 3 mg ONCE ONE Administration Vital Signs: Temp Pulse Resp BP Pulse Ox 08/31/20 15:50 97 08/31/20 13:28 96.5 F L 79 22 166/75 H 87 L Discharge Plan Discharge Patient Disposition: ADMITTED INPATIENT Discharge Problem: COPD (chronic obstructive pulmonary disease), Anxiety, Pneumonia ED Provider: CARLENE CHUN Condition: Stable Physician Progress Note: []
[2020-08-31] MEDS ORDERED: SOLU-MEDROL 125 MG IVP ONE (16:18)
[2020-08-31] MEDS ORDERED: ZITHROMAX PO ONE (16:25)
[2020-08-31] MEDS ORDERED: ROCEPHIN 1 GM/50 ML D5W 1 GM/50 ML BAG IV STA (16:33)
[2020-08-31 17:02] LABS: BORDETELLA PARAPERTUSSIS (PCR) NOT DETECTED (NOT DETECT); BORDETELLA PERTUSSIS (PCR) NOT DETECTED (NOT DETECT); CHLAMYDIA PNEUMONIAE (PCR) NOT DETECTED (NOT DETECT); CORONAVIRUS 229E (PCR) NOT DETECTED (NOT DETECT); CORONAVIRUS HKU1 (PCR) NOT DETECTED (NOT DETECT); CORONAVIRUS NL63 (PCR) NOT DETECTED (NOT DETECT); CORONAVIRUS OC43 (PCR) NOT DETECTED (NOT DETECT); HUMAN METAPNEUMOVIRUS (PCR) NOT DETECTED (NOT DETECT); HUMAN RHINOVIRUS/ENTEROV (PCR) NOT DETECTED (NOT DETECT); INFLUENZA B (PCR) NOT DETECTED (NOT DETECT); MYCOPLASMA PNEUMONIAE (PCR) NOT DETECTED (NOT DETECT); PARAINFLUENZA VIRUS 1 (PCR) NOT DETECTED (NOT DETECT); PARAINFLUENZA VIRUS 2 (PCR) NOT DETECTED (NOT DETECT); PARAINFLUENZA VIRUS 3 (PCR) NOT DETECTED (NOT DETECT); PARAINFLUENZA VIRUS 4 (PCR) NOT DETECTED (NOT DETECT); RESPIRATORY SYNCYTIAL V (PCR) NOT DETECTED (NOT DETECT); SARS_COV_2 (PCR) NOT DETECTED (NOT DETECT)
[2020-08-31 17:52] LABS: ADENOVIRUS (PCR) NOT DETECTED (NOT DETECT)
[2020-08-31 18:43] VITALS: BMI 37.7
[2020-08-31] MEDS ORDERED: NITROSTAT SL PRN (19:33)
[2020-08-31] MEDS ORDERED: ATROPINE SULFATE PFS IVP PRN (19:33)
[2020-08-31 20:06] LABS: CREATINE KINASE 53.3 U/L (30-135)
[2020-08-31 20:20] LABS: TROPONIN I < 0.012 ng/ml (0.0000-0.120)
[2020-08-31] MEDS: SOLU-CORTEF 250 MG IVP SCH (20:49)
[2020-08-31] MEDS: NAMENDA PO SCH (20:49)
[2020-08-31] MEDS ORDERED: PRILOSEC PO SCH (21:00)
[2020-08-31] MEDS ORDERED: GLUCOPHAGE PO SCH (21:00)
[2020-08-31] MEDS: ZOLOFT PO SCH (21:00)
[2020-08-31] MEDS ORDERED: ATIVAN PO SCH (21:00)
[2020-08-31 21:04] LABS: BILIRUBIN,URINE Negative (NEGATIVE); CLARITY,URINE Clear (CLEAR); COLOR,URINE Yellow (YELLOW); GLUCOSE, URINE (UA) 2+ (NEGATIVE); KETONES,URINE Negative (NEGATIVE); LEUKOCYTE ESTERASE ,URINE Negative (NEGATIVE); NITRITE,URINE Negative (NEGATIVE); PH,URINE 5.5 (5-9); PROTEIN,URINE 1+ (NEGATIVE); URINE, BLOOD Negative (NEGATIVE); UROBILINOGEN,URINE 0.2 (0.2)
[2020-08-31 21:21] LABS: HYALINE CASTS, URINE 0-2 (NOT PRESENT); URINE RBC, MICROSCOPIC 0-2 (0-2); URINE WBC, MICROSCOPIC 0-2 (0-2)
[2020-08-31 21:22] LABS: MUCUS,URINE 1+ (NOT PRESENT)
[2020-08-31] MEDS: ATROVENT HFA INHALER (PER PUFF-WITH SPACER) IH SCH (23:02)
[2020-08-31] MEDS: VENTOLIN HFA (PER PUFF-WITH SPACER) IH SCH (23:02)
[2020-09-01] MEDS: TYLENOL PO PRN ×2 (00:45→20:04)
[2020-09-01 03:50] LABS: BASOPHILS % (AUTO) 0.2 % (0.0-3.0); HEMATOCRIT 32.7 % (37.0-47.0); HEMOGLOBIN 10.1 g/dl (12.0-16.0); IMMATURE GRANULOCYTE # (AUTO) 0.1 (0.0-1.0); IMMATURE GRANULOCYTE % (AUTO) 1.3 % (0.0-5.0); LYMPHOCYTES # (AUTO) 0.4 K/uL (0.60-3.4); LYMPHOCYTES % (AUTO) 3.2 (10.0-50.0); MEAN CORPUSCULAR HEMOGLOBIN 27.2 pg (27.0-31.0); MEAN CORPUSCULAR HGB CONC 30.9 (31.8-35.4); MEAN CORPUSCULAR VOLUME 88.1 fl (81.0-99.0); MONOCYTES # (AUTO) 0.1 K/uL (0.4-2.0); MONOCYTES % (AUTO) 1.3 (0-10); NEUTROPHILS # (AUTO) 10.5 K/ul (2.0-6.9); PLATELET COUNT 210 10^3/uL (140-440); RDW COEFFICIENT OF VARIATION 16.6 % (11.6-14.8); RED BLOOD COUNT 3.71 10^6/ul (4.20-5.40); WHITE BLOOD COUNT 11.18 K/ul (4.6-10.2)
[2020-09-01 04:02] LABS: CREATINE KINASE 51.3 U/L (30-135)
[2020-09-01 04:03] LABS: ALANINE AMINOTRANSFERASE 16.2 U/L (0-35); ALBUMIN 3.74 g/dL (3.5-5.0); ALKALINE PHOSPHATASE 72.4 U/L (53-141); ASPARTATE AMINO TRANSFERASE 23.3 U/L (14-36); BILIRUBIN,TOTAL 0.35 mg/dL (0.2-1.3); BLOOD UREA NITROGEN 27.9 mg/dL (7-17); CALCIUM 8.59 mg/dL (8.4-10.2); CARBON DIOXIDE 30.9 mmol/L (22-30.0); CHLORIDE 96.3 mmol/L (98-107); CREATININE 1.09 mg/dL (0.60-1.30); GLUCOSE 405.7 mg/dL (74-106); POTASSIUM 4.91 mmol/L (3.5-5.1); SODIUM 132.3 mmol/L (134.5-145); TOTAL PROTEIN 6.48 g/dL (6.3-8.2)
[2020-09-01 04:15] LABS: TROPONIN I < 0.012 ng/ml (0.0000-0.120)
[2020-09-01] MEDS: SOLU-CORTEF 250 MG IVP SCH ×3 (04:39→20:03)
[2020-09-01] MEDS: VENTOLIN HFA (PER PUFF-WITH SPACER) IH SCH ×4 (05:12→23:05)
[2020-09-01] MEDS: ATROVENT HFA INHALER (PER PUFF-WITH SPACER) IH SCH ×4 (05:12→23:05)
[2020-09-01] MEDS: LASIX TAB PO SCH (05:47)
[2020-09-01] MEDS: HUMULIN R SUBCUT PRN ×4 (05:48→20:09)
[2020-09-01] MEDS ORDERED: ATIVAN PO PRN (07:12)
[2020-09-01] MEDS: NON-FORMULARY MEDICATION (Vit C,E-Zn-Coppr-Lutein-Zeaxan [Preservision Areds-2] 250-200-40 PO SCH ×2 (07:16→20:40)
[2020-09-01 07:38] LABS: PROTHROMBIN TIME 16.5 SEC (9.3-11.0)
[2020-09-01] MEDS ORDERED: GLUCOPHAGE PO SCH (08:30)
[2020-09-01] MEDS ORDERED: ATIVAN PO SCH ×3 (09:00→21:00)
[2020-09-01] MEDS: LOTENSIN PO SCH (09:30)
[2020-09-01] MEDS: ROCEPHIN 1 GM/50 ML D5W 1 GM/50 ML BAG IV SCH (09:30)
[2020-09-01] MEDS: ATIVAN PO SCH ×2 (09:31→20:04)
[2020-09-01] MEDS: PRILOSEC PO SCH ×2 (09:31→16:33)
[2020-09-01] MEDS: LANOXIN PO SCH (09:31)
[2020-09-01] MEDS: NAMENDA PO SCH ×2 (09:31→20:04)
[2020-09-01] MEDS: ARICEPT PO SCH (09:31)
[2020-09-01] MEDS: ZITHROMAX PO SCH (09:31)
[2020-09-01] MEDS: NEURONTIN PO SCH (09:32)
[2020-09-01] MEDS: FERROUS SULFATE PO SCH (09:32)
[2020-09-01] MEDS: NORVASC PO SCH (09:32)
[2020-09-01] MEDS: TRIGLIDE PO SCH (09:32)
[2020-09-01] MEDS: ZOLOFT PO SCH (09:32)
[2020-09-01 09:39] LABS: ABG O2 HGB 94.1 % (95-100); BEecf 3.7 (-2.0-3.0); COHb 2.5 (0.5-1.5); HCO3 28.5 (21-28); MetHb 0.9 (0-1.5); TCO2 29.9 (19-24); sO2 96.3 % (94-98); tHb 10.7 g/dl (11.7-17.4)
--- NOTE | 2020-09-01 09:48 | PCM.PROG ---
Attending Provider: ATTENDING PROVIDER: Dr. FRENCH JACOBSON This patient is seen with Antoinette Martínez, Nurse Practitioner. DATE OF SERVICE: 09/01/20 SUBJECTIVE: This 79 year old /WHITE F was hospitalized 08/31/20. The patient is resting comfortably. She is sleeping peacefully this morning. Had confusion through the night. Coughing some wheezing. No fever. REVIEW OF SYSTEMS: CONSTITUTIONAL: No night sweats. No fatigue, malaise, lethargy. No fever or chills. HEENT: Eyes: No visual changes. No eye pain. No eye discharge. ENT: No runny nose. No epistaxis. No sinus pain. No odynophagia. No congestion. RESPIRATORY: Cough, no congestion. No hemoptysis. No shortness of breath. Wheezing. CARDIOVASCULAR: No angina symptoms. No CHF symptoms. No atypical chest pain for CAD. No palpitations. No orthopnea.. GASTROINTESTINAL: No abdominal pain. No nausea or vomiting. No diarrhea or constipation. No hematemesis. No hematochezia. GENITOURINARY: No urgency. No frequency. No dysuria. No hematuria. No obstructive symptoms. No discharge. No pain. No significant abnormal bleeding. MUSCULOSKELETAL: No musculoskeletal pain; no joint swelling. NEUROLOGICAL: Awake, alert,confused. No headache. No neck pain. No syncope. No seizures. No dizziness. PSYCHIATRIC: Not anxious. No depression. No suicidal thoughts. No homicidal thoughts. SKIN: No rash. No lesions. No wounds. ENDOCRINE: No unexplained weight loss. No weight gain. HEMATOLOGIC/LYMPHATIC: No anemia. No purpura. No petechiae. No prolonged or excessive bleeding. No palpable lymph nodes. PHYSICAL EXAMINATION: GENERAL: The patient is awake, alert and oriented to person and place, not praful e, lying in bed in no distress. VITAL SIGNS: Temperature 97.5 F, Pulse 72, Respiratory Rate 18, BP 147/81, Pulse Ox 94% HEENT: Head normocephalic, atraumatic. Eyes: Extraocular muscles are intact. Pupils are equal, round and reactive to light and accommodation. Ears: No lesions. Nose appeared normal. Throat: No exudate or erythema. NECK: Supple. No JVD, no carotid bruit. No lymphadenopathy or thyromegaly. LUNGS: Diminished breath sounds. Faint expiratory wheezing. Clear to auscultation. Percussion note normal. Chest symmetrical. HEART: S1, S2, no S3. No murmurs. No cyanosis or clubbing. No ascites. Pulses: Dorsalis pedis and posterior tibial pulses +1 to +2 both sides. ABDOMEN: Soft. Non-tender. Bowel sounds active. No CVA tenderness. No mass felt. EXTREMITIES: No edema. Full range of motion of all extremities, equal. NEUROLOGIC: No focal deficit. Cranial nerves II through XII are grossly intact. No headache. No double vision. SKIN: Not dry. Intact. Turgor-normal. LYMPHATIC: No palpable lymph nodes/no lymphedema. MUSCULOSKELETAL: Normal joints with no swelling. Muscle tone is normal. LAB REVIEW: 09/01/20 03:46 09/01/20 03:46 09/01/20 07:22: PT 16.5 H, INR 1.55 09/01/20 03:46: Sodium 132.3 L, Potassium 4.91, Chloride 96.3 L, Carbon Dioxide 30.9 H, Anion Gap 10.01, BUN 27.9 H, Creatinine 1.09, Estimated GFR (MDRD) 49.00, BUN/Creatinine Ratio 25.59, Glucose 405.7 H D, Calcium 8.59, Total Bilirubin 0.35, AST 23.3, ALT 16.2, Alkaline Phosphatase 72.4, Total Protein 6.48, Albumin 3.74, Globulin 2.74, Albumin/Globulin Ratio 1.36 09/01/20 03:46: WBC 11.18 H, RBC 3.71 L, Hgb 10.1 L, Hct 32.7 L, MCV 88.1, MCH 27.2, MCHC 30.9 L, RDW Coeff of Monique 16.6 H, Plt Count 210, Immature Gran % (Auto) 1.3, Neut % (Auto) 94.0 H, Lymph % (Auto) 3.2 L, [place] % (Auto) 1.3, Eos % (Auto) 0.0, Baso % (Auto) 0.2, Neut # (Auto) 10.5 H, Lymph # (Auto) 0.4 L, [place] # (Auto) 0.1 L, Eos # (Auto) 0.0, Baso # (Auto) 0.0, Immature Gran # (Auto) 0.1 09/01/20 03:46: Total Creatine Kinase 51.3, Troponin I < 0.012 08/31/20 20:30: Urine Color Yellow, Urine Clarity Clear, Urine pH 5.5, Ur Specific [place] 1.020, Urine Protein 1+ H, Urine Glucose (UA) 2+ H, Urine Ket ones Negative, Urine Blood Negative, Urine Nitrite Negative, Urine Bilirubin Negative, Urine Urobilinogen 0.2, Ur Leukocyte Esterase Negative, Urine Microscopic RBC 0-2, Urine Microscopic WBC 0-2, Ur Squamous Epith Cells 2-5, Hyaline Casts 0-2, Urine Mucus 1+ 08/31/20 19:51: Total Creatine Kinase 53.3, Troponin I < 0.012 08/31/20 16:58: Adenovirus (PCR) Not detected, B. pertussis DNA (PCR) Not detected, B.parapertussis DNA PCR Not detected, C. pneumoniae DNA (PCR) Not detected, Coronavirus OC43 (PCR) Not detected, Coronavirus HKU1 (PCR) Not det ected, Coronavirus 229E (PCR) Not detected, Coronavirus NL63 (PCR) Not detected, Human Metapneumovir PCR Not detected, Influenza Type A (PCR) Not detected, Influenza B (RT-PCR) Not detected, M. pneumoniae (PCR) Not detected, Parainfluenza 1 (PCR) Not detected, Parainfluenza 2 (PCR) Not detected, Par ainfluenza 3 (PCR) Not detected, Parainfluenza 4 (PCR) Not detected, RSV (PCR) Not detected, Entero/Rhino (PCR) Not detected, SARS-CoV-2 (PCR) Not detected 08/31/20 15:31: Sodium 135.9, Potassium 4.36, Chloride 95.0 L, Carbon Dioxide 37.4 H, Anion Gap 7.86, BUN 23.0 H, Creatinine 1.10, Estimated GFR (MDRD) 48.00, BUN/Creatinine Ratio 20.90, Glucose 223.1 H, Calcium 8.89, Total Bilirubin 0.53, AST 20.8, ALT 12.9, Alkaline Phosphatase 71.7, Total Creatine Kinase 47.3, Total Protein 7.00, Albumin 3.98, Globulin 3.02, Albumin/Globulin Ratio 1.31 08/31/20 15:31: WBC 10.45 H, RBC 3.82 L, Hgb 10.4 L, Hct 34.2 L, MCV 89.5, MCH 27.2, MCHC 30.4 L, RDW Coeff of Monique 16.7 H, Plt Count 231, Immature Gran % (Auto) 1.0, Neut % (Auto) 82.5 H, Lymph % (Auto) 8.3 L, [place] % (Auto) 6.9, Eos % (Auto) 1.1, Baso % (Auto) 0.2, Neut # (Auto) 8.6 H, Lymph # (Auto) 0.9, [place] # (Auto) 0.7, Eos # (Auto) 0.1, Baso # (Auto) 0.0, Immature Gran # (Auto) 0.1 08/31/20 15:20: Puncture Site Rrad, Base Excess 12.5 H, O2 Saturation 98.7 H, ABG pH 7.42, ABG pCO2 57.0 H, ABG pO2 120.0 H, ABG HCO3 37.0 H, ABG Total CO2 38.7 H, Adam Test Pos, Hemoglobin 0.8, Oxyhemoglobin 96.4, Carboxyhemoglobin 2.5 H, Total Hemoglobin 9.8 L, O2 Delivery Device Cannula, Oxygen Liter Flow 3.00 ASSESSMENT: Please see below. 1. Right lobar pneumonia and mass 2. Shortness of breath 3. Atrial fibrillation 4. Chronic anemia 5. Dementia with behavior disturbances 6. Anxiety PLAN: 1. Repeat ABG on 2 liters 2. Zithromax 500mg PO times two days 3. Extra 3mg Coumadin 4. Digoxin level 5. T4 TSH 6. Ativan 1mg PRN during the day Plan and coordination of the patient's care discussed in the presence of Car Rental Agent and nurse. SCRIBED BY: JAQUELINE LINDER Cork Insulator Helper scribed while in presence of service performed by Dr. Jacobson/Antoinette Martínez, MARISEL on 09/01/20 ([id number])
--- NOTE | 2020-09-01 10:49 | RS.PTINEVL ---
Subjective - Patient information Date of Evaluation: 09/01/20 Date of Arrival on Unit: 08/31/20 Admitted From:: Home Diagnosis: pneumonia, h/o falls Usual Living Arrangement: With Others Living Arrangement Comments: lives at home with significant other and son stays with her. Home Environment: House, Stairs (few), Rail Medical History: Hypertension, CVA/TIA, COPD, Dementia, Diabetes, Arthritis Medical History Comments:: afib, [place], anxiety, CAD, depression, GERD, lung tumor LATEX ALLERGY?: No Surgical History: Knee Replacement (bilateral), Hysterectomy Medications: see chart Subjective Information/ Patient Comments:: pt states that she uses rwx sometimes at home. She reports that she is independent at home. (however pt is poor historian due to dementia) - Level of function Abilities prior to this admission: unsure due to pt cognitive status and no family present. family did report to nursing that patient had a fall last week. Current Level of Function: Partially Dependent Current Equipment Used at Home: rolling walker. glucometer. oxygen concentrator Interventions - Objective Patient Orientation: Person Current Interventions: IV's, Oxygen (2liters), Telemetry Range of Motion - ROM Right Upper Extremity AROM: WFL's Left Upper Extremity AROM: WFL's Right Lower Extremity AROM: WFL's Left Lower Extremity AROM: WFL's Muscle Strength - Muscle Strength Right Upper Extremity Strength: Mild Weakness (grossly 4/5) Left Upper Extremity Strength: Mild Weakness (grossly 4/5) Right Lower Extremity Strength: Mild Weakness (hip flex 4-/5, knee flex/ext 4/5, ankle DF/PF 4/5) Left Lower Extremity Strength: Mild Weakness (hip flex 4-/5, knee flex/ext 4/5, ankle DF/PF 4/5) Sensation - Sensation Right Upper Extremity Sensation: Intact/Normal Left Upper Extremity Sensation: Intact/Normal Right Lower Extremity Sensation: Intact/Normal Left Lower Extremity Sensation: Intact/Normal Palpation Palpation Findings: None/Normal Balance - Sitting Balance and Reactions Static Sitting Balance: Good Dynamic Sitting Balance: Fair - Standing Balance and Reactions Static Standing Balance: Fair Dynamic Standing Balance: Poor Standing Equilibrium Reactions: Delayed Left, Delayed Right Standing Protective Reactions: Delayed Left, Delayed Right Functional Mobility - Bed Mobility Sit to Supine: Supervision - Transfers Sit to Stand: Min Assist Stand to Sit: CGA - Safety Awareness Safety Awareness: Poor CHUY INDEX SCORE: n/a Ambulation - Ambulation Assistive Device Used: Rolling Walker Orthotic/Prosthetic Device: No Distance: 100ft Assistance needed with Ambulation: CGA, 1 person assist (+1 for IV and O2) Gait Deviations: Forward posture, Short stride, Deviates from path Factors Affecting Ambulation: Decreased Balance, Breathing/O2 Saturation, Weakness, Decreased Safety, Cognitive Status, Limited Endurance Treatment time - Time with patient Length of Evaluation: 19 Total treatment time: 26 Patient Education - Education Patient Education: Home Exercise Program, Education of Plan of Care Teaching Recipient: Patient Teaching Methods: Discussion Assessment - Assessment Problem List:: Decreased level of function, Requires training/education, Decreased safety/Risk of falls, Weakness, Cognitive status limits abilities Rehab Potential: Fair Further Therapy Indicated?: Yes Candidate for Swing Bed for Therapy Services?: Feel pt may not be a candidate for swing bed due to cognitive status. Evaluation Complexity: HISTORY: Medium, EXAM OF BODY SYSTEMS: Medium, CLINICAL PRESENTATION: Medium, CLINICAL DECISION MAKING: Medium Patient's Goal(s): go home Short Term Goals GOAL #1: pt independent with rolling and scooting up in bed. Goal to be met by: 09/04/20 GOAL #2: Transfer sup to/from sit SBA Goal to be met by: 09/04/20 GOAL #3: Sit to/from stand CGA Goal to be met by: 09/04/20 GOAL #4: pt amb with rwx 110ft with CGA with improved posture Goal to be met by: 09/04/20 Casing Crew Pusher Goals GOAL #1: pt transfer sup to/from sit to/from stand independently Goal to be met by: 09/06/20 GOAL #2: pt amb functional distances with rwx with SBA Goal to be met by: 09/06/20 GOAL #3: pt ascend/descend 3 steps with 1 handrail Goal to be met by: 09/06/20 Plan Plan of Care: Therapeutic EX, Therapeutic Activity Other:: gait training Frequency of Treatment: 1-2 X day, as tolerated Duration of Treatment: 5 days Anticipated Discharge Destination: Home Treatment Diagnosis (ICD 10 Codes): impaired balance R 26.81. gait difficulty R 26.2. muscle weakness M62.81. falls Z91.81 Has the Physician been added for Co-signature?: Yes
--- NOTE | 2020-09-01 10:51 | RS.OTINEVL ---
Subjective - Patient information Date of Evaluation: 09/01/20 Date of Arrival on Unit: 08/31/20 Admitted From:: Facility Transfer Diagnosis: Pneumonia PRECAUTIONS: A risk for falls, Confused, SOA Usual Living Arrangement: With Others Living Arrangement Comments: Son and granddaughter lives with her. Significant other lives with pt. Home Environment: House, Stairs (few) (to get in/out of home. inside home is level) Medical History: CVA/TIA, Diabetes Medical History Comments:: A fib, Neuropathy, GERD LATEX ALLERGY?: No Surgical History: Knee Replacement, Hysterectomy Surgical History Comments:: Left TKA 07/04, lumbar spine surgery Dec 2014 Subjective Information/ Patient Comments:: "I can put myself down. You can go on and see others." Pt reported she has not fallen at home. - Level of function Prior to this admission, the patient could do the following:: Independent Selfcare, Independent ADL's, Independent Ambulation, Perform Health Services Rn /Cooking, Drive, Participated in Social Activities Outside home Abilities prior to this admission: Pt has tried to drive. Pt is independent with dressing. Current Level of Function: Partially Dependent Comments: Pt perseverates on certain things like the RW in her room. She doesn't know if it is hers or not. And she continues to talk about it and work herself up. Current Equipment Used at Home: rolling walker. glucometer. oxygen concentrator Pain Assessment - Pain Pain Score: 0 Interventions - Objective Patient Orientation: Person Current Interventions: IV's, Oxygen Observation: Pt is weak during functional transfers. Pt becomes SOA with transfers using RW. Pt perseverates on items or tasks like brushing her hair. She continued to brush after it was brushed numerous times. Pt required a cue to stop brushing. Pt's memory is impaired. Interventions - ROM Right Upper Extremity AROM: WFL's Left Upper Extremity AROM: WFL's Comments: Pt reports some pain in the RUE humerus area. - Strength Right Upper Extremity Strength: Mild Weakness Left Upper Extremity Strength: Mild Weakness - Sensation Right Upper Extremity Sensation: Intact/Normal Left Upper Extremity Sensation: Intact/Normal Balance - Sitting Balance Static Sitting Balance: Good Dynamic Sitting Balance: Good - Standing Balance Static Standing Balance: Fair Dynamic Standing Balance: Fair ADL Skills - Self Feeding Self Feeding: Independent - Grooming Grooming: CGA - Dressing Dressing UE: Set Up Only Dressing LE: Set Up Only - Toilet Management Toileting Management: Independent Functional Mobility - Bed Mobility Rolling R/L: Independent Scooting: Independent Supine to Sit: Independent Sit to Supine: Independent - Transfers Sit to Stand: CGA Stand to Sit: CGA Stand Pivot Transfers: Min Assist - Ambulation Weight Bearing Status: FWB Assistive Device Used: Rolling Walker Assistance needed with Ambulation: CGA - Safety Awareness Safety Awareness: Fair CHUY INDEX SCORE: . Additional Treatment Performed - Time with patient Length of Evaluation: 19 Total treatment time: 19 Activities Do you enjoy playing games?: Yes Would you be interested in leaving your room for activities?: Yes Would you enjoy group activities?: Yes Do you have difficulty with your vision?: Yes What types of things do you enjoy doing? Any Hobbies?: tv Patient Education Patient Education: Education of diagnosis, Home Safety, Education of Plan of Care Teaching Recipient: Patient Teaching Methods: Discussion Assessment Problem List:: Decreased safety/Risk of falls, Weakness, Cognitive status limits abilities Rehab Potential: Fair Further Therapy Indicated?: Yes Evaluation Complexity: HISTORY: Medium, EXAM OF BODY SYSTEMS: Medium, CLINICAL DECISION MAKING: Medium Patient's Goal(s): To not be SOA when she walks. Short Term Goals - Goals GOAL 1: SUP with self care Goal to be met by: 09/05/20 GOAL 2: SBA with functional transfers. Goal to be met by: 09/05/20 GOAL 3: F+/G- ADL balance Goal to be met by: 09/05/20 GOAL 4: Increase Activity time to 10 minutes without a rest. Goal to be met by: 09/05/20 Government Affairs Specialist Goals GOAL 1: Pt to increase (I) of ADLS to SUP. Goal to be met by: 09/06/20 GOAL 2: Mod-I with functional transfers for self care. Goal to be met by: 09/06/20 Goal to be met by: 09/06/20 Plan Plan of Care: Therapeutic EX, Therapeutic Activity, Self-Care/Home Management Frequency of Treatment: 1-2 X day, as tolerated Duration of Treatment: 1 Week Anticipated Discharge Destination: Home Treatment Diagnosis (ICD 10 Codes): M62.81 General weakness, Has the Physician been added for Co-signature?: Yes
[2020-09-01] MEDS: ATIVAN PO PRN (16:29)
[2020-09-01] MEDS: MEVACOR PO SCH (16:30)
[2020-09-01] MEDS: COUMADIN PO SCH (16:32)
[2020-09-01] MEDS ORDERED: LANTUS SUBCUT SCH ×2 (17:00→21:00)
[2020-09-01] MEDS ORDERED: COUMADIN PO SCH (17:00)
[2020-09-01] MEDS: INSULIN GLARGINE U U SUBCUT SCH (20:11)
[2020-09-02 05:19] LABS: BASOPHILS % (AUTO) 0.1 % (0.0-3.0); HEMATOCRIT 30.5 % (37.0-47.0); HEMOGLOBIN 9.6 g/dl (12.0-16.0); IMMATURE GRANULOCYTE # (AUTO) 0.1 (0.0-1.0); LYMPHOCYTES # (AUTO) 0.6 K/uL (0.60-3.4); LYMPHOCYTES % (AUTO) 4.3 (10.0-50.0); MEAN CORPUSCULAR HEMOGLOBIN 27.7 pg (27.0-31.0); MEAN CORPUSCULAR HGB CONC 31.5 (31.8-35.4); MEAN CORPUSCULAR VOLUME 88.2 fl (81.0-99.0); MONOCYTES # (AUTO) 0.7 K/uL (0.4-2.0); MONOCYTES % (AUTO) 4.9 (0-10); NEUTROPHILS % (AUTO) 89.7 % (42.2-75.2); PLATELET COUNT 217 10^3/uL (140-440); RDW COEFFICIENT OF VARIATION 16.5 % (11.6-14.8); RED BLOOD COUNT 3.46 10^6/ul (4.20-5.40); WHITE BLOOD COUNT 13.39 K/ul (4.6-10.2)
[2020-09-02 05:24] LABS: ALBUMIN 3.7 g/dL (3.5-5.0); ALKALINE PHOSPHATASE 56.4 U/L (53-141); ASPARTATE AMINO TRANSFERASE 18.6 U/L (14-36); BILIRUBIN,TOTAL 0.4 mg/dL (0.2-1.3); BLOOD UREA NITROGEN 35.4 mg/dL (7-17); CALCIUM 8.45 mg/dL (8.4-10.2); CARBON DIOXIDE 32.6 mmol/L (22-30.0); CHLORIDE 95.9 mmol/L (98-107); CREATININE 0.99 mg/dL (0.60-1.30); GLUCOSE 285.5 mg/dL (74-106); POTASSIUM 4.52 mmol/L (3.5-5.1); PROTHROMBIN TIME 17.2 SEC (9.3-11.0); SODIUM 134.9 mmol/L (134.5-145); TOTAL PROTEIN 6.41 g/dL (6.3-8.2)
[2020-09-02] MEDS: SOLU-CORTEF 250 MG IVP SCH ×3 (05:24→20:59)
[2020-09-02] MEDS: HUMULIN R SUBCUT PRN ×4 (05:30→20:57)
[2020-09-02] MEDS: LASIX TAB PO SCH (05:32)
[2020-09-02] MEDS: PRILOSEC PO SCH ×2 (05:32→17:05)
[2020-09-02] MEDS: VENTOLIN HFA (PER PUFF-WITH SPACER) IH SCH ×4 (05:35→23:03)
[2020-09-02] MEDS: ATROVENT HFA INHALER (PER PUFF-WITH SPACER) IH SCH ×4 (05:35→23:03)
[2020-09-02] MEDS: ZITHROMAX PO SCH (08:43)
[2020-09-02] MEDS: NEURONTIN PO SCH (08:43)
[2020-09-02] MEDS: NORVASC PO SCH (08:43)
[2020-09-02] MEDS: ARICEPT PO SCH (08:43)
[2020-09-02] MEDS: ATIVAN PO SCH ×2 (08:44→20:57)
[2020-09-02] MEDS: TRIGLIDE PO SCH (08:44)
[2020-09-02] MEDS: ZOLOFT PO SCH (08:44)
[2020-09-02] MEDS: NAMENDA PO SCH ×2 (08:44→20:57)
[2020-09-02] MEDS: LOTENSIN PO SCH (08:44)
[2020-09-02] MEDS: FERROUS SULFATE PO SCH (08:44)
[2020-09-02] MEDS: ROCEPHIN 1 GM/50 ML D5W 1 GM/50 ML BAG IV SCH (08:45)
[2020-09-02] MEDS: LANOXIN PO SCH (08:45)
[2020-09-02] MEDS: VENTOLIN HFA (PER PUFF-WITH SPACER) IH PRN (13:13)
[2020-09-02] MEDS: ATIVAN PO PRN (14:26)
[2020-09-02] MEDS: TYLENOL PO PRN ×2 (14:26→20:56)
[2020-09-02] MEDS: MEVACOR PO SCH (17:06)
[2020-09-02] MEDS: COUMADIN PO SCH (17:06)
[2020-09-02] MEDS: INSULIN GLARGINE U U SUBCUT SCH (20:57)
[2020-09-02] MEDS: NON-FORMULARY MEDICATION (Vit C,E-Zn-Coppr-Lutein-Zeaxan [Preservision Areds-2] 250-200-40 PO SCH (21:02)
[2020-09-03 05:00] LABS: BASOPHILS % (AUTO) 0.1 % (0.0-3.0); HEMATOCRIT 30.4 % (37.0-47.0); HEMOGLOBIN 9.4 g/dl (12.0-16.0); IMMATURE GRANULOCYTE # (AUTO) 0.1 (0.0-1.0); IMMATURE GRANULOCYTE % (AUTO) 1.2 % (0.0-5.0); LYMPHOCYTES # (AUTO) 0.5 K/uL (0.60-3.4); LYMPHOCYTES % (AUTO) 5.2 (10.0-50.0); MEAN CORPUSCULAR HEMOGLOBIN 27.2 pg (27.0-31.0); MEAN CORPUSCULAR HGB CONC 30.9 (31.8-35.4); MEAN CORPUSCULAR VOLUME 88.1 fl (81.0-99.0); MONOCYTES # (AUTO) 0.6 K/uL (0.4-2.0); MONOCYTES % (AUTO) 5.3 (0-10); NEUTROPHILS # (AUTO) 9.2 K/ul (2.0-6.9); NEUTROPHILS % (AUTO) 88.2 % (42.2-75.2); PLATELET COUNT 209 10^3/uL (140-440); RDW COEFFICIENT OF VARIATION 16.2 % (11.6-14.8); RED BLOOD COUNT 3.45 10^6/ul (4.20-5.40)
[2020-09-03] MEDS: VENTOLIN HFA (PER PUFF-WITH SPACER) IH SCH ×4 (05:04→22:08)
[2020-09-03] MEDS: ATROVENT HFA INHALER (PER PUFF-WITH SPACER) IH SCH ×4 (05:04→22:09)
[2020-09-03 05:14] LABS: ALANINE AMINOTRANSFERASE 12.9 U/L (0-35); ALBUMIN 3.52 g/dL (3.5-5.0); ALKALINE PHOSPHATASE 56.9 U/L (53-141); ASPARTATE AMINO TRANSFERASE 17.1 U/L (14-36); BILIRUBIN,TOTAL 0.31 mg/dL (0.2-1.3); BLOOD UREA NITROGEN 27.6 mg/dL (7-17); CALCIUM 8.46 mg/dL (8.4-10.2); CARBON DIOXIDE 35.8 mmol/L (22-30.0); CHLORIDE 96.4 mmol/L (98-107); CREATININE 0.99 mg/dL (0.60-1.30); POTASSIUM 3.86 mmol/L (3.5-5.1); SODIUM 135.7 mmol/L (134.5-145); TOTAL PROTEIN 6.14 g/dL (6.3-8.2)
[2020-09-03 05:21] LABS: PROTHROMBIN TIME 18.9 SEC (9.3-11.0)
[2020-09-03] MEDS: SOLU-CORTEF 250 MG IVP SCH ×3 (05:23→20:41)
[2020-09-03] MEDS: LASIX TAB PO SCH (06:07)
[2020-09-03] MEDS: PRILOSEC PO SCH ×2 (06:07→17:24)
[2020-09-03] MEDS: HUMULIN R SUBCUT PRN ×4 (06:08→20:36)
[2020-09-03] MEDS: VENTOLIN HFA (PER PUFF-WITH SPACER) IH PRN ×2 (07:18→16:30)
[2020-09-03] MEDS: LOTENSIN PO SCH (08:41)
[2020-09-03] MEDS: NORVASC PO SCH (08:42)
[2020-09-03] MEDS: ATIVAN PO SCH ×2 (08:42→20:38)
[2020-09-03] MEDS: FERROUS SULFATE PO SCH (08:42)
[2020-09-03] MEDS: NEURONTIN PO SCH (08:42)
[2020-09-03] MEDS: NAMENDA PO SCH ×2 (08:42→20:38)
[2020-09-03] MEDS: LANOXIN PO SCH (08:42)
[2020-09-03] MEDS: ZOLOFT PO SCH (08:43)
[2020-09-03] MEDS: ARICEPT PO SCH (08:43)
[2020-09-03] MEDS: TRIGLIDE PO SCH (08:43)
[2020-09-03] MEDS: ROCEPHIN 1 GM/50 ML D5W 1 GM/50 ML BAG IV SCH (08:43)
[2020-09-03] MEDS: MEVACOR PO SCH (17:24)
[2020-09-03] MEDS: COUMADIN PO SCH (17:24)
[2020-09-03] MEDS: INSULIN GLARGINE U U SUBCUT SCH (20:39)
[2020-09-03] MEDS: NON-FORMULARY MEDICATION (Vit C,E-Zn-Coppr-Lutein-Zeaxan [Preservision Areds-2] 250-200-40 PO SCH (21:02)
[2020-09-04] MEDS: ATROVENT HFA INHALER (PER PUFF-WITH SPACER) IH SCH ×4 (05:13→23:30)
[2020-09-04] MEDS: VENTOLIN HFA (PER PUFF-WITH SPACER) IH SCH ×4 (05:13→23:30)
[2020-09-04] MEDS: SOLU-CORTEF 250 MG IVP SCH (05:15)
[2020-09-04 05:24] LABS: BASOPHILS % (AUTO) 0.1 % (0.0-3.0); HEMATOCRIT 30.6 % (37.0-47.0); HEMOGLOBIN 9.4 g/dl (12.0-16.0); IMMATURE GRANULOCYTE # (AUTO) 0.1 (0.0-1.0); LYMPHOCYTES # (AUTO) 0.6 K/uL (0.60-3.4); LYMPHOCYTES % (AUTO) 5.2 (10.0-50.0); MEAN CORPUSCULAR HEMOGLOBIN 26.9 pg (27.0-31.0); MEAN CORPUSCULAR HGB CONC 30.7 (31.8-35.4); MEAN CORPUSCULAR VOLUME 87.4 fl (81.0-99.0); MONOCYTES # (AUTO) 0.7 K/uL (0.4-2.0); MONOCYTES % (AUTO) 6.5 (0-10); NEUTROPHILS # (AUTO) 9.5 K/ul (2.0-6.9); NEUTROPHILS % (AUTO) 87.2 % (42.2-75.2); PLATELET COUNT 204 10^3/uL (140-440); WHITE BLOOD COUNT 10.83 K/ul (4.6-10.2)
[2020-09-04] MEDS: LASIX TAB PO SCH (05:37)
[2020-09-04 05:38] LABS: ALANINE AMINOTRANSFERASE 12.4 U/L (0-35); ALBUMIN 3.16 g/dL (3.5-5.0); ALKALINE PHOSPHATASE 55.4 U/L (53-141); ASPARTATE AMINO TRANSFERASE 14.5 U/L (14-36); BILIRUBIN,TOTAL 0.3 mg/dL (0.2-1.3); BLOOD UREA NITROGEN 28.7 mg/dL (7-17); CALCIUM 8.35 mg/dL (8.4-10.2); CARBON DIOXIDE 39.1 mmol/L (22-30.0); CHLORIDE 92.8 mmol/L (98-107); CREATININE 0.9 mg/dL (0.60-1.30); GLUCOSE 246.4 mg/dL (74-106); POTASSIUM 3.68 mmol/L (3.5-5.1); TOTAL PROTEIN 5.47 g/dL (6.3-8.2)
[2020-09-04] MEDS: PRILOSEC PO SCH ×2 (05:38→17:30)
[2020-09-04] MEDS: HUMULIN R SUBCUT PRN ×4 (05:38→20:14)
[2020-09-04] MEDS: ATIVAN PO SCH ×2 (08:43→20:15)
[2020-09-04] MEDS: LANOXIN PO SCH (08:43)
[2020-09-04] MEDS: ZOLOFT PO SCH (08:45)
[2020-09-04] MEDS: NORVASC PO SCH (08:45)
[2020-09-04] MEDS: LOTENSIN PO SCH (08:45)
[2020-09-04] MEDS: TRIGLIDE PO SCH (08:45)
[2020-09-04] MEDS: FERROUS SULFATE PO SCH (08:45)
[2020-09-04] MEDS: NAMENDA PO SCH ×2 (08:45→20:15)
[2020-09-04] MEDS: NEURONTIN PO SCH (08:46)
[2020-09-04] MEDS ORDERED: ROCEPHIN 1 GM/50 ML D5W 1 GM/50 ML BAG IV ONE (09:14)
[2020-09-04] MEDS: ARICEPT PO SCH (09:24)
--- NOTE | 2020-09-04 09:34 | PN ---
DATE OF SERVICE: 09/03/2020 SUBJECTIVE: 79 year old white female hospitalized with pneumonia. The patient is confused but alert. Talking about Dr. Mcdonnell is going to come and see her tomorrow at the time she would be going home. Tried to tell her that Dr. Mcdonnell has been gone for 3-4 years and I have been taking care of her. Yesterday she was talking about me, the physician in charge the case. The patient has not any distress. She wants to go home. REVIEW OF SYSTEMS: CONSTITUTIONAL: No night sweats. No fatigue, malaise, lethargy. No fever or chills. HEENT: Eyes: No visual changes. No eye pain. No eye discharge. ENT: No runny nose. No epistaxis. No sinus pain. No sore throat. No odynophagia. No congestion. RESPIRATORY: No cough, no congestion. No hemoptysis. No shortness of breath. CARDIOVASCULAR: No angina symptoms. No CHF symptoms. No atypical chest pain for CAD. No palpitations. No PND. No orthopnea. GASTROINTESTINAL: No abdominal pain. No nausea or vomiting. No diarrhea or constipation. No hematemesis. No hematochezia. GENITOURINARY: No urgency. No frequency. No dysuria. No hematuria. No obstructive symptoms. No discharge. No pain. No significant abnormal bleeding. MUSCULOSKELETAL: No musculoskeletal pain; no joint swelling. NEUROLOGICAL: No headache. No neck pain. No syncope. No seizures. No dizziness. PSYCHIATRIC: Not anxious. No depression. No suicidal thoughts. No homicidal thoughts. SKIN: No rash. No lesions. No wounds. ENDOCRINE: No unexplained weight loss. No weight gain. HEMATOLOGIC/LYMPHATIC: No anemia. No purpura. No petechiae. No prolonged or excessive bleeding. No palpable lymph nodes. PHYSICAL EXAMINATION: VITAL SIGNS: Temperature 97.7, pulse 75, respiratory rate 20, blood pressure 144/72 and pulse ox 95%. HEENT: Head normocephalic, atraumatic. Eyes: Extraocular muscles are intact. Pupils are equal, round and reactive to light and accommodation. Ears: No lesions. Nose appeared normal. Throat: No exudate or erythema. NECK: Supple. No JVD, no carotid bruit. No lymphadenopathy or thyromegaly. LUNGS: Decreased breath sounds but clear to auscultation. Percussion note normal. Chest symmetrical. HEART: S1, S2, no S3. No murmurs. No cyanosis or clubbing. No ascites. Pulses: Dorsalis pedis and posterior tibial pulses +1 to +2 bilaterally. ABDOMEN: Soft. Nontender. Bowel sounds active. No CVA tenderness. No mass felt. EXTREMITIES: No edema. Full range of motion of all extremities, equal. NEUROLOGIC: No focal deficit. Cranial nerves II through XII are grossly intact. No headache. No double vision. SKIN: Not dry. Intact. Turgor - normal. LYMPHATIC: No palpable lymph nodes/no lymphedema. MUSCULOSKELETAL: Normal joints with no swelling. Muscle tone is normal. LABS: Hgb 9.4, hct 30, WBC 10,000 normal differential, creatinine 0.9, BUN 27, potassium 3.8 ASSESSMENT: 1. Respiratory failure seemed to have resolved 2. Pneumonia which is being treated with IV antibiotics and steroids. 3. Right consolidation which has increased with possible post obstructive pneumonia explained to the patient again. She doesn't have anything to do with it. She does not want anything to be done and has been refusing to have anything done about it when she was oriented to time, place and person. Confused in any case. PLAN: 1. Continue antibiotics and steroids CONDITION: Stable Prognosis Guarded. TIME SPENT: More than 30 minutes. Plan and coordination of the patient's care discussed in the presence of nurse. DEVAN
--- NOTE | 2020-09-04 10:21 | PCM.PROG ---
Attending Provider: ATTENDING PROVIDER: Dr. FRENCH EID This patient is seen with Antoinette Martínez, Nurse Practitioner. DATE OF SERVICE: 09/04/20 SUBJECTIVE: This 79 year old /WHITE F was hospitalized 08/31/20. The patient is resting comfortably. She states she is very tired has not been up walking around much. No fever. She has a productive cough. REVIEW OF SYSTEMS: CONSTITUTIONAL: Weakness. No night sweats. No fatigue, malaise, lethargy. No fever or chills. HEENT: Eyes: No visual changes. No eye pain. No eye discharge. ENT: No runny nose. No epistaxis. No sinus pain. No odynophagia. No congestion. RESPIRATORY: Productive cough. No hemoptysis. No shortness of breath. CARDIOVASCULAR: No angina symptoms. No CHF symptoms. No atypical chest pain for CAD. No palpitations. No orthopnea.. GASTROINTESTINAL: No abdominal pain. No nausea or vomiting. No diarrhea or constipation. No hematemesis. No hematochezia. GENITOURINARY: No urgency. No frequency. No dysuria. No hematuria. No obstructive symptoms. No discharge. No pain. No significant abnormal bleeding. MUSCULOSKELETAL: No musculoskeletal pain; no joint swelling. NEUROLOGICAL: Awake, alert, forgetfulness. No headache. No neck pain. No syncope. No seizures. No dizziness. PSYCHIATRIC: Not anxious. No depression. No suicidal thoughts. No homicidal thoughts. SKIN: No rash. No lesions. No wounds. ENDOCRINE: No unexplained weight loss. No weight gain. HEMATOLOGIC/LYMPHATIC: No anemia. No purpura. No petechiae. No prolonged or excessive bleeding. No palpable lymph nodes. PHYSICAL EXAMINATION: GENERAL: The patient is awake, alert and oriented, lying/sitting in bed in no distress. VITAL SIGNS: Temperature 97.3 F, Pulse 68, Respiratory Rate 18, BP 159/82, Pulse Ox 98% HEENT: Head normocephalic, atraumatic. Eyes: Extraocular muscles are intact. Pupils are equal, round and reactive to light and accommodation. Ears: No lesions. Nose appeared normal. Throat: No exudate or erythema. NECK: Supple. No JVD, no carotid bruit. No lymphadenopathy or thyromegaly. LUNGS: Diminished breath sounds. Clear to auscultation. Percussion note normal. Chest symmetrical. HEART: S1, S2, no S3. No murmurs. No cyanosis or clubbing. No ascites. Pulses: Dorsalis pedis and posterior tibial pulses +1 to +2 both sides. ABDOMEN: Soft. Non-tender. Bowel sounds active. No CVA tenderness. No mass felt. EXTREMITIES: No edema. Full range of motion of all extremities, equal. NEUROLOGIC: No focal deficit. Cranial nerves II through XII are grossly intact. No headache. No double vision. SKIN: Not dry. Intact. Turgor-normal. LYMPHATIC: No palpable lymph nodes/no lymphedema. MUSCULOSKELETAL: Normal joints with no swelling. Muscle tone is normal. LAB REVIEW: 09/04/20 05:00 09/04/20 05:00 09/04/20 05:00: Sodium 135.0, Potassium 3.68, Chloride 92.8 L, Carbon Dioxide 39.1 H, Anion Gap 6.78, BUN 28.7 H, Creatinine 0.90, Estimated GFR (MDRD) 61.00, BUN/Creatinine Ratio 31.88, Glucose 246.4 H, Calcium 8.35 L, Total Bilirubin 0.30, AST 14.5, ALT 12.4, Alkaline Phosphatase 55.4, Total Protein 5.47 L, Albumin 3.16 L, Globulin 2.31, Albumin/Globulin Ratio 1.36 09/04/20 05:00: WBC 10.83 H, RBC 3.50 L, Hgb 9.4 L, Hct 30.6 L, MCV 87.4, MCH 26.9 L, MCHC 30.7 L, RDW Coeff of Monique 16.0 H, Plt Count 204, Immature Gran % (Auto) 1.0, Neut % (Auto) 87.2 H, Lymph % (Auto) 5.2 L, [place] % (Auto) 6.5, Eos % (Auto) 0.0, Baso % (Auto) 0.1, Neut # (Auto) 9.5 H, Lymph # (Auto) 0.6, [place] # (Auto) 0.7, Eos # (Auto) 0.0, Baso # (Auto) 0.0, Immature Gran # (Auto) 0.1 09/04/20 05:00: PT 17.0 H, INR 1.59 ASSESSMENT: Please see below. 1. Right upper lobe pneumonia. 2. Shortness of breath. 3. Atrial fibrillation. 4. Dementia with behavioral disturbance. 5. Anxiety. PLAN: 1. Repeat chest x-ray. 2. D/C Solu-Medrol. 3. Prednisone 10 mg b.i.d. 4. Continue Rocephin today. 5. Coumadin 9 mg. 6. Appoint[address] Dr. Miller for Dr. Palmer 09/29/20. Plan and coordination of the patient's care discussed in the presence of Highway Research Engineer and nurse. CONDITION: Stable SCRIBED BY: SERVANDO CANALES Machinery Rigger scribed while in presence of service performed by Dr. Eid/Antoinette Martínez APRN on 09/04/20 ([id number])
--- NOTE | 2020-09-04 13:21 | DI ---
Exam: Two views of the chest. Comparison: CT chest performed 08/31/2020. Reason for exam: Pneumonia. FINDINGS: Developing consolidations in the right upper lobe and right mid lung. The heart appears m ildly prominent. No pneumothorax. Impression: Right upper and right mid lung developing consolidation likely atelectasis/pneumonia.
--- NOTE | 2020-09-04 13:40 | PN ---
DATE OF SERVICE: 08/31/2020 ADMIT NOTE SUBJECTIVE: 79 year old white female hospitalized with shortness of breath. The patient's CT scan of the chest showed continued infiltrate possibly some worsening. The patient on top of this she has for a while may have some superimposed pneumonia. The patient is going to be hospitalized. REVIEW OF SYSTEMS: CONSTITUTIONAL: No night sweats. No fatigue, malaise, lethargy. No fever or chills. HEENT: Eyes: No visual changes. No eye pain. No eye discharge. ENT: No runny nose. No epistaxis. No sinus pain. No sore throat. No odynophagia. No congestion. RESPIRATORY: No cough, no congestion. No hemoptysis. Shortness of breath. CARDIOVASCULAR: No angina symptoms. No CHF symptoms. No atypical chest pain for CAD. No palpitations. No PND. No orthopnea. GASTROINTESTINAL: No abdominal pain. No nausea or vomiting. No diarrhea or constipation. No hematemesis. No hematochezia. GENITOURINARY: No urgency. No frequency. No dysuria. No hematuria. No obstructive symptoms. No discharge. No pain. No significant abnormal bleeding. MUSCULOSKELETAL: No musculoskeletal pain; no joint swelling. NEUROLOGICAL: No headache. No neck pain. No syncope. No seizures. No dizziness. PSYCHIATRIC: Not anxious. No depression. No suicidal thoughts. No homicidal thoughts. SKIN: No rash. No lesions. No wounds. ENDOCRINE: No unexplained weight loss. No weight gain. HEMATOLOGIC/LYMPHATIC: No anemia. No purpura. No petechiae. No prolonged or excessive bleeding. No palpable lymph nodes. PHYSICAL EXAMINATION: GENERAL: The patient was not in much distress but was short of breath on minimal exertion. VITAL SIGNS: HEENT: Head normocephalic, atraumatic. Eyes: Extraocular muscles are intact. Pupils are equal, round and reactive to light and accommodation. Ears: No lesions. Nose appeared normal. Throat: No exudate or erythema. NECK: Supple. No JVD, no carotid bruit. No lymphadenopathy or thyromegaly. LUNGS: Decreased breath sounds but clear to auscultation. Percussion note normal. Chest symmetrical. HEART: S1, S2, no S3. No murmurs. No cyanosis or clubbing. No ascites. Pulses: Dorsalis pedis and posterior tibial pulses +1 to +2 bilaterally. ABDOMEN: Soft. Nontender. Bowel sounds active. No CVA tenderness. No mass felt. EXTREMITIES: No edema. Full range of motion of all extremities, equal. NEUROLOGIC: No focal deficit. Cranial nerves II through XII are grossly intact. No headache. No double vision. SKIN: Not dry. Intact. Turgor - normal. LYMPHATIC: No palpable lymph nodes/no lymphedema. MUSCULOSKELETAL: Normal joints with no swelling. Muscle tone is normal. LABS: ABG showed pO2 120 with pCO2 57, pH 7.42 with saturation 99%. This was on 3 liters. ASSESSMENT: 1. Pneumonia with severe chronic lung disease 2. Possible mass in the lung followed by pulmonary, the patient doesn't want anything to be done PLAN: 1. Hospitalize with IV antibiotics, steroids and NEBS treatment. 2. The patient may need Accu-check with coverage for her diabetes. CONDITION: Stable. The patient is a full code. TIME SPENT: More than 30 minutes. Plan and coordination of the patient's care discussed in the presence of nurse. DEVAN
--- NOTE | 2020-09-04 13:53 | PN ---
DATE OF SERVICE: 09/01/2020 SUBJECTIVE: The patient was seen and examined with the Nurse Practitioner. The patient's condition is stable. She is hospitalized with pneumonia. Condition seems to have improved. Oxygen saturation is 94% with blood pressure of 147/81. The patient is going to be treated with inhalers, Lanoxin PO for her atrial fibrillation, Benazepril, Rocephin IV with Solu-Cortef 125mg Q 8 hours. The patient will have insulin coverage with Accu-check. Warfarin will be continued along with Zoloft which is working well for her depression. She is on Coumadin. We will do an INR. The patient is going to be given 1.5 extra, total of 9mg today. T4, TSH and Digoxin level will be done. TIME SPENT: More than 30 minutes. Plan and coordination of the patient's care discussed in the presence of nurse. DEVAN
--- NOTE | 2020-09-04 14:45 | PN ---
DATE OF SERVICE: 09/02/2020 SUBJECTIVE: 79 year old white female hospitalized hospitalized with pneumonia. The patient's condition steadily has improved. She wants to go home, feeling better. She is less short of breath, less coughing. REVIEW OF SYSTEMS: CONSTITUTIONAL: No night sweats. No fatigue, malaise, lethargy. No fever or chills. HEENT: Eyes: No visual changes. No eye pain. No eye discharge. ENT: No runny nose. No epistaxis. No sinus pain. No sore throat. No odynophagia. No congestion. RESPIRATORY: No cough, no congestion. No hemoptysis. No shortness of breath. CARDIOVASCULAR: No angina symptoms. No CHF symptoms. No atypical chest pain for CAD. No palpitations. No PND. No orthopnea. GASTROINTESTINAL: No abdominal pain. No nausea or vomiting. No diarrhea or constipation. No hematemesis. No hematochezia. GENITOURINARY: No urgency. No frequency. No dysuria. No hematuria. No obstructive symptoms. No discharge. No pain. No significant abnormal bleeding. MUSCULOSKELETAL: No musculoskeletal pain; no joint swelling. NEUROLOGICAL: No headache. No neck pain. No syncope. No seizures. No dizziness. PSYCHIATRIC: Not anxious. No depression. No suicidal thoughts. No homicidal thoughts. SKIN: No rash. No lesions. No wounds. ENDOCRINE: No unexplained weight loss. No weight gain. HEMATOLOGIC/LYMPHATIC: No anemia. No purpura. No petechiae. No prolonged or excessive bleeding. No palpable lymph nodes. PHYSICAL EXAMINATION: VITAL SIGNS: Temperature 97.4, pulse 65, respiratory rate 18, blood pressure 140/70 and pulse ox 96% on 2 liters. HEENT: Head normocephalic, atraumatic. Eyes: Extraocular muscles are intact. Pupils are equal, round and reactive to light and accommodation. Ears: No lesions. Nose appeared normal. Throat: No exudate or erythema. NECK: Supple. No JVD, no carotid bruit. No lymphadenopathy or thyromegaly. LUNGS: Decreased breath sounds but clear to auscultation. Percussion note normal. Chest symmetrical. HEART: S1, S2, no S3. No murmurs. No cyanosis or clubbing. No ascites. Pulses: Dorsalis pedis and posterior tibial pulses +1 to +2 bilaterally. ABDOMEN: Soft. Nontender. Bowel sounds active. No CVA tenderness. No mass felt. EXTREMITIES: No edema. Full range of motion of all extremities, equal. NEUROLOGIC: No focal deficit. Cranial nerves II through XII are grossly intact. No headache. No double vision. SKIN: Not dry. Intact. Turgor - normal. LYMPHATIC: No palpable lymph nodes/no lymphedema. MUSCULOSKELETAL: Normal joints with no swelling. Muscle tone is normal. LABS: Hgb 9.6, hct 30, WBC 13,000 normal differential, creatinine 0.9, BUN 35, potassium 4.5 ASSESSMENT: 1. Pneumonia seems to be clinically resolving. The patient feeling better. The patient's pneumonia likely post obstructive with mass in the lung. She doesn't want anything to be done. 2. Dementia, the patient is forgetful and repeats the same thing about the friend that she lives with. 3. Chronic lung disease 4. Atrial fibrillation 5. Chronic anemia PLAN: 1. Advised the patient to join pulmonary rehab 2. Continue steroids, antibiotics 3. Chronic anemia she was recommend colonoscopy and she had declined. 4. The patient's blood sugar is running high because of steroids. She is on sliding scale with coverage. TIME SPENT: More than 30 minutes. Plan and coordination of the patient's care discussed in the presence of nurse. DEVAN
[2020-09-04] MEDS: VENTOLIN HFA (PER PUFF-WITH SPACER) IH PRN (14:49)
[2020-09-04] MEDS: MEVACOR PO SCH (17:30)
[2020-09-04] MEDS: PREDNISONE PO SCH (17:30)
[2020-09-04] MEDS ORDERED: COUMADIN PO ONE (17:30)
[2020-09-04] MEDS: COUMADIN PO SCH (17:41)
[2020-09-04] MEDS: INSULIN GLARGINE U U SUBCUT SCH (20:15)
[2020-09-04] MEDS: NON-FORMULARY MEDICATION (Vit C,E-Zn-Coppr-Lutein-Zeaxan [Preservision Areds-2] 250-200-40 PO SCH (20:16)
[2020-09-05] MEDS: TYLENOL PO PRN (02:00)
[2020-09-05 05:25] LABS: BASOPHILS % (AUTO) 0.1 % (0.0-3.0); EOSINOPHILS % (AUTO) 0.2 % (0.0-7.0); HEMATOCRIT 31.9 % (37.0-47.0); HEMOGLOBIN 9.8 g/dl (12.0-16.0); IMMATURE GRANULOCYTE # (AUTO) 0.1 (0.0-1.0); IMMATURE GRANULOCYTE % (AUTO) 0.8 % (0.0-5.0); LYMPHOCYTES % (AUTO) 8.4 (10.0-50.0); MEAN CORPUSCULAR HEMOGLOBIN 27.1 pg (27.0-31.0); MEAN CORPUSCULAR HGB CONC 30.7 (31.8-35.4); MEAN CORPUSCULAR VOLUME 88.4 fl (81.0-99.0); MONOCYTES # (AUTO) 1.1 K/uL (0.4-2.0); MONOCYTES % (AUTO) 9.3 (0-10); NEUTROPHILS # (AUTO) 9.2 K/ul (2.0-6.9); NEUTROPHILS % (AUTO) 81.2 % (42.2-75.2); PLATELET COUNT 225 10^3/uL (140-440); RED BLOOD COUNT 3.61 10^6/ul (4.20-5.40); WHITE BLOOD COUNT 11.27 K/ul (4.6-10.2)
[2020-09-05] MEDS: ATROVENT HFA INHALER (PER PUFF-WITH SPACER) IH SCH ×2 (05:25→11:03)
[2020-09-05] MEDS: VENTOLIN HFA (PER PUFF-WITH SPACER) IH SCH ×2 (05:25→11:04)
[2020-09-05 05:36] LABS: PROTHROMBIN TIME 15.9 SEC (9.3-11.0)
[2020-09-05 05:41] LABS: ALANINE AMINOTRANSFERASE 13.4 U/L (0-35); ALBUMIN 3.41 g/dL (3.5-5.0); ALKALINE PHOSPHATASE 48.5 U/L (53-141); ASPARTATE AMINO TRANSFERASE 20.3 U/L (14-36); BILIRUBIN,TOTAL 0.4 mg/dL (0.2-1.3); BLOOD UREA NITROGEN 30.3 mg/dL (7-17); CALCIUM 8.37 mg/dL (8.4-10.2); CREATININE 0.85 mg/dL (0.60-1.30); GLUCOSE 82.9 mg/dL (74-106); POTASSIUM 3.58 mmol/L (3.5-5.1); SODIUM 138.1 mmol/L (134.5-145); TOTAL PROTEIN 6.16 g/dL (6.3-8.2)
[2020-09-05 05:47] LABS: CARBON DIOXIDE 39.9 mmol/L (22-30.0)
[2020-09-05 05:49] VITALS: BP 138/84; TEMP 97
[2020-09-05] MEDS: PRILOSEC PO SCH (05:54)
[2020-09-05] MEDS: LASIX TAB PO SCH (05:54)
[2020-09-05] MEDS: NEURONTIN PO SCH ×2 (08:32→09:55)
[2020-09-05] MEDS: PREDNISONE PO SCH (08:32)
[2020-09-05] MEDS: NAMENDA PO SCH (08:32)
[2020-09-05] MEDS: ZOLOFT PO SCH (08:32)
[2020-09-05] MEDS: ATIVAN PO SCH (08:32)
[2020-09-05] MEDS: LOTENSIN PO SCH (08:32)
[2020-09-05] MEDS: NORVASC PO SCH (08:32)
[2020-09-05] MEDS: FERROUS SULFATE PO SCH (08:32)
[2020-09-05] MEDS: TRIGLIDE PO SCH (08:33)
[2020-09-05] MEDS: LANOXIN PO SCH (08:33)
[2020-09-05] MEDS: ARICEPT PO SCH (08:33)
--- NOTE | 2020-09-05 09:31 | PCM.PROG ---
Attending Provider: ATTENDING PROVIDER: Dr. FRENCH EID This patient is seen with Antoinette Martínez, Nurse Practitioner. DATE OF SERVICE: 09/05/20 SUBJECTIVE: This 79 year old /WHITE F was hospitalized 08/31/20. The patient is resting comfortably in bed. She had a good night. She is ready to go home today. She did show a 2 second pause on telemetry this morning, she was asymptomatic. REVIEW OF SYSTEMS: CONSTITUTIONAL: No night sweats. No fatigue, malaise, lethargy. No fever or chills. HEENT: Eyes: No visual changes. No eye pain. No eye discharge. ENT: No runny nose. No epistaxis. No sinus pain. No odynophagia. No congestion. RESPIRATORY: No cough, no congestion. No hemoptysis. No shortness of breath. CARDIOVASCULAR: No angina symptoms. No CHF symptoms. No atypical chest pain for CAD. No palpitations. No orthopnea.. GASTROINTESTINAL: No abdominal pain. No nausea or vomiting. No diarrhea or constipation. No hematemesis. No hematochezia. GENITOURINARY: No urgency. No frequency. No dysuria. No hematuria. No obstructive symptoms. No discharge. No pain. No significant abnormal bleeding. MUSCULOSKELETAL: No musculoskeletal pain; no joint swelling. NEUROLOGICAL: Awake, alert, confusion. No headache. No neck pain. No syncope. No seizures. No dizziness. PSYCHIATRIC: Not anxious. No depression. No suicidal thoughts. No homicidal thoughts. SKIN: No rash. No lesions. No wounds. ENDOCRINE: No unexplained weight loss. No weight gain. HEMATOLOGIC/LYMPHATIC: No anemia. No purpura. No petechiae. No prolonged or excessive bleeding. No palpable lymph nodes. PHYSICAL EXAMINATION: GENERAL: The patient is awake, alert and oriented, lying/sitting in bed in no distress. VITAL SIGNS: Temperature 97.0 F, Pulse 64, Respiratory Rate 18, BP 138/84, Pulse Ox 95% HEENT: Head normocephalic, atraumatic. Eyes: Extraocular muscles are intact. Pupils are equal, round and reactive to light and accommodation. Ears: No lesions. Nose appeared normal. Throat: No exudate or erythema. NECK: Supple. No JVD, no carotid bruit. No lymphadenopathy or thyromegaly. LUNGS: Diminished breath sounds. Clear to auscultation. Percussion note lenard l. Chest symmetrical. HEART: Irregular heart rate. S1, S2, no S3. No murmurs. No cyanosis or clu bbing. No ascites. Pulses: Dorsalis pedis and posterior tibial pulses +1 to +2 both sides. ABDOMEN: Soft. Non-tender. Bowel sounds active. No CVA tenderness. No mass felt. EXTREMITIES: No edema. Full range of motion of all extremities, equal. NEUROLOGIC: No focal deficit. Cranial nerves II through XII are grossly intact. No headache. No double vision. SKIN: Not dry. Intact. Turgor-normal. LYMPHATIC: No palpable lymph nodes/no lymphedema. MUSCULOSKELETAL: Normal joints with no swelling. Muscle tone is normal. LAB REVIEW: 09/05/20 04:38 09/05/20 04:38 09/05/20 04:38: PT 15.9 H, INR 1.49 09/05/20 04:38: Sodium 138.1, Potassium 3.58, Chloride 92.0 L, Carbon Dioxide 39.9 H, Anion Gap 9.78, BUN 30.3 H, Creatinine 0.85, Estimated GFR (MDRD) 65.00, BUN/Creatinine Ratio 35.64, Glucose 82.9 D, Calcium 8.37 L, Total Bilirubin 0.40, AST 20.3, ALT 13.4, Alkaline Phosphatase 48.5 L, Total Protein 6.16 L, Albumin 3.41 L, Globulin 2.75, Albumin/Globulin Ratio 1.24 09/05/20 04:38: WBC 11.27 H, RBC 3.61 L, Hgb 9.8 L, Hct 31.9 L, MCV 88.4, MCH 27.1, MCHC 30.7 L, RDW Coeff of Monique 16.0 H, Plt Count 225, Immature Gran % (Auto) 0.8, Neut % (Auto) 81.2 H, Lymph % (Auto) 8.4 L, [place] % (Auto) 9.3, Eos % (Auto) 0.2, Baso % (Auto) 0.1, Neut # (Auto) 9.2 H, Lymph # (Auto) 1.0, [place] # (Auto) 1.1, Eos # (Auto) 0.0, Baso # (Auto) 0.0, Immature Gran # (Auto) 0.1 ASSESSMENT: Please see below. 1. Right upper lobe pneumonia. 2. Known right upper lobe mass. 3. COPD. 4. Dementia. 5. Atrial fibrillation. PLAN: 1. Hold Digoxin this morning. 2. Coumadin 12 mg today. 3. Omnicef 300 mg b.i.d. for 7 days. 4. Prednisone 10 mg b.i.d. for 5 days. 5. Appointment with Dr. Burch and Dr. Palmer in September. Plan and coordination of the patient's care discussed in the presence of Senior Mechanical Engineer and nurse. CONDITION: Stable SCRIBED BY: SERVANDO CANALES Guest Services Lead scribed while in presence of service performed by Dr. Eid/Antoinette Martínez APRN on 09/05/20 ([id number])
[2020-09-05] MEDS ORDERED: OMNICEF PO ONE (10:51)
[2020-09-05] MEDS: HUMULIN R SUBCUT PRN (11:22)
--- NOTE | 2020-09-05 12:00 | CM.DICTOOL ---
ADMISSION: 08/31/20 17:57 DISCHARGE: SEPTEMBER 05, 2020 DATE OF SERVICE: 09/05/20 FINAL DIAGNOSIS PNEUMONIA, RIGHT UPPER LOBE LUNG MASS, RIGHT UPPER LOBE (CT 07/17/20, SEES DR. FRANCO/DR. VINCENT/DR. 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 THOMAS BILATERAL TKR, DR. Mima JACOBSON COLONOSCOPY, 2019 DR. MEJIA HYSTERECTOMY ECHOCARDIOGRAM: 2020 BORDERLINE LVH WITH MARKEDLY ENLARGED LEFT ATRIAL CAVITY LVEF 45% LAST VITALS Temp Pulse Resp BP Pulse Ox 97.0 F L 64 18 138/84 95 09/05/20 05:48 09/05/20 05:48 09/05/20 05:48 09/05/20 05:48 09/05/20 05:48 TAKE THESE MEDICATIONS AT HOME Albuterol Sulfate (Albuterol Sulfate (Ventolin Hfa) 18 Gm 1 Puff With Spacer) 2 puff IH RTQ6H PRN Last Admin: 09/05/20 05:25 Dose: 2 puff Documented by: Amlodipine Besylate (Amlodipine Besylate 5 Mg Tablet) 10 mg PO DAILY [facility] Last Admin: 09/05/20 08:32 Dose: 10 mg Documented by: Benazepril HCl (Benazepril Hcl 10 Mg Tablet) 40 mg PO DAILY [facility] Last Admin: 09/05/20 08:32 Dose: 40 mg Documented by: Digoxin (Digoxin 125 Mcg Tablet) 125 mcg PO DAILY [facility] (TO BE STOPPED AT [facility] FOR HOLTER MONITOR) Last Admin: 09/05/20 08:33 Dose: Not Given Documented by: Donepezil HCl (Donepezil Hcl 10 Mg Tablet) 10 mg PO DAILY [facility] Last Admin: 09/05/20 08:33 Dose: 10 mg Documented by: Fenofibrate (Fenofibrate 54 Mg Tablet) 54 mg PO DAILY [facility] Last Admin: 09/05/20 08:33 Dose: 54 mg Documented by: Ferrous Sulfate (Ferrous Sulfate 324 Mg Tablet.) 324 mg PO DAILY [facility] Last Admin: 09/05/20 08:32 Dose: 324 mg Documented by: Furosemide (Furosemide 40 Mg Tablet) 40 mg PO QDAC [facility] Last Admin: 09/05/20 05:54 Dose: 40 mg Documented by: Gabapentin (Gabapentin 300 Mg Capsule) 300 mg PO DAILY [facility] Last Admin: 09/05/20 09:55 Dose: Not Given Documented by: Lorazepam (Lorazepam 1 Mg Tablet) 1 mg PO DAILY PRN PRN Reason: Anxiety Last Admin: 09/02/20 14:26 Dose: 1 mg Documented by: Lorazepam (Lorazepam 1 Mg Tablet) 1 mg PO AT BEDTIME [facility] Last Admin: 09/05/20 08:32 Dose: 1 mg Documented by: Lovastatin (Lovastatin 20 Mg Tablet) 40 mg PO QPM [facility] Last Admin: 09/04/20 17:30 Dose: 40 mg Documented by: Memantine (Memantine Hcl 10 Mg Tablet) 10 mg PO BID [facility] Last Admin: 09/05/20 08:32 Dose: 10 mg Documented by: Non-Formulary Medication (Vit C,M-Na-Zckrf-Lutein-Zeaxan [Preservision Areds-2]) 1 tab PO BEDTIME [facility] Last Admin: 09/04/20 20:16 Dose: Not Given Documented by: Non-Formulary Medication (Insulin Glargine U-300 Conc [Toujeo Solostar U-300 Insulin]) 60 unit SUBCUT BEDTIME [facility] Last Admin: 09/04/20 20:15 Dose: 60 unit Documented by: Omeprazole (Omeprazole 20 Mg Capsule.Dr) 20 mg PO BIDAC [facility] Last Admin: 09/05/20 05:54 Dose: 20 mg Documented by: Prednisone (Prednisone 10 Mg Tablet) 10 mg PO BIDWM [facility] (RX FOR 5 DAYS) Last Admin: 09/05/20 08:32 Dose: 10 mg Documented by: Sertraline HCl (Sertraline Hcl 50 Mg Tablet) 50 mg PO DAILY [facility] Last Admin: 09/05/20 08:32 Dose: 50 mg Documented by: Warfarin Sodium (Warfarin Sodium 3 Mg Tablet) 6 mg PO QPM [facility] Last Admin: 09/04/20 17:41 Dose: 6 mg Documented by: OMNICEF 300 MG BID ( NEW RX FOR 5 DAYS) BREO ELLIPTICAL 1 INHALATION DAILY [facility] LAST ADMIN: ALLERGIES No Known Allergies Allergy (Verified 08/31/20 13:46) DISCONTINUED MEDICATIONS METFORMN (PRIOR TO ADMISSION PER FAMILY/MD) DIGOXIN FOR NOW ADDITIONAL MEDICATION INSTRUCTION: TAKE AN EXTRA COUMADIN 6 MG TONIGHT ONLY NEW PRESCRIPTIONS: OMNICEF 300 MG BID FOR 5 DAYS PREDNISONE 10 MG BID FOR 5 DAYS SMOKING: NOT APPLICABLE DISEASE SPECIFIC EDUCATION: PATIENT IS FORGETFUL INSTRUCTIONS TO FAMILY REGARDING APPOINTMENT, MED CHANGE LAB REVIEW: 09/05/20 04:38 09/05/20 04:38 09/05/20 04:38: PT 15.9 H, INR 1.49 09/05/20 04:38: Sodium 138.1, Potassium 3.58, Chloride 92.0 L, Carbon Dioxide 39.9 H, Anion Gap 9.78, BUN 30.3 H, Creatinine 0.85, Estimated GFR (MDRD) 65.00, BUN/Creatinine Ratio 35.64, Glucose 82.9 D, Calcium 8.37 L, Total Bilirubin 0.40, AST 20.3, ALT 13.4, Alkaline Phosphatase 48.5 L, Total Protein 6.16 L, Albumin 3.41 L, Globulin 2.75, Albumin/Globulin Ratio 1.24 09/05/20 04:38: WBC 11.27 H, RBC 3.61 L, Hgb 9.8 L, Hct 31.9 L, MCV 88.4, MCH 27.1, MCHC 30.7 L, RDW Coeff of Monique 16.0 H, Plt Count 225, Immature Gran % (Auto) 0.8, Neut % (Auto) 81.2 H, Lymph % (Auto) 8.4 L, [place] % (Auto) 9.3, Eos % (Auto) 0.2, Baso % (Auto) 0.1, Neut # (Auto) 9.2 H, Lymph # (Auto) 1.0, [place] # (Auto) 1.1, Eos # (Auto) 0.0, Baso # (Auto) 0.0, Immature Gran # (Auto) 0.1 PLAN: DISCHARGE HOME TODAY DIET: CONSISTENT CARBOHYDRATE ACTIVITY: GRADUALLY RESUME TOLERATED PHYSICAL THERAPY HAS RECOMMENDED THE USE OF THE WALKER FOR ADDED STABILITY WHEN WALKING CONTINUE TO USE OXYGEN AT 2 LITERS CONTINUOUSLY CHECK BLOOD SUGARS DIRECTED; AT LEAST TWICE A DAY APPOINTMENTS: HOLTER MONITOR ON August AT 1 PM IN CARDIOPULMONARY DEPARTMENT AT [facility] DR. JACOBSON/JAMARI CARRILLO APRN/NATE RAUSCH APRN ON August AT 1:30 APPOINTMENT (ALREADY SCHEDULED) AT [facility], [place], [facility] ON September WITH DR. VINCENT APPOINTMENT (ALREADY SCHEDULED) WITH DR. CAVANAUGH CODE STATUS: FULL CODE MS. SNYDER IS ALERT TO PERSON, PLACE AND SITUATION. SHE IS FORGETFUL AND ANXIOUS AT TIMES. SHE IS AGREEABLE TO PLANS FOR DISCHARGE HOME TODAY. HER SON, KYUNG (DAIJA) IS AGREEABLE FOR DISCHARGE PLANS. HE IS ALSO AWARE OF APPOINTMENTS FOR FOLLOW-UP CARE. MS. SNYDER LIVES AT HOME WITH HER SIGNIFICANT OTHER: GABRIELA JOSUE, HER SON AND HER GRANDDAUGHTER. MS. SNYDER IS INDEPENDENT WITH ADL'S. SHE IS AMBULATORY TO THE BATHROOM WITH SBA OF NURSING, OXYGEN AND USE OF A WALKER. SHE IS CONTINENT OF BOWEL AND BLADDER. SHE IS AMBULATORY IN THE HALLWAY WITH USE OF THE ROLLING WALKER AND THERAPY STAFF. MS. SNYDER HAS OXYGEN AND A WALKER AT HOME FOR HER USE. MS. SNYDER HAS A GOOD APPETITE AND HAS BEEN CONSUMING 100% OF ALL MEALS DURING HER HOSPITALIZATION. HYDRATION STATUS IS GOOD. SKIN IS INTACT. MD JAMARI SRIVASTAVA APRN
--- NOTE | 2020-09-07 14:41 | DS ---
DATE OF SERVICE: 09/05/2020 FINAL DIAGNOSIS: PNEUMONIA, RIGHT UPPER LOBE LUNG MASS, RIGHT UPPER LOBE (CT 07/17/20, SEES DR. FRANCO/DR. VINCENT/DR. 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 THOMAS BILATERAL TKR, DR. Mima JACOBSON COLONOSCOPY, 2019 DR. MEJIA HYSTERECTOMY ECHOCARDIOGRAM: 2020 BORDERLINE LVH WITH MARKEDLY ENLARGED LEFT ATRIAL CAVITY LVEF 45% LAST VITALS: Temp Pulse Resp BP Pulse Ox 97.0 F L 64 18 138/84 95 09/05/20 05:48 09/05/20 05:48 09/05/20 05:48 09/05/20 05:48 09/05/20 05:48 DISCHARGE INSTRUCTIONS: DISCHARGE HOME TODAY. CONTINUE TO USE OXYGEN AT 2 LITERS CONTINUOUSLY. CHECK BLOOD SUGARS DIRECTED; AT LEAST TWICE A DAY APPOINTMENTS: HOLTER MONITOR ON August AT 1 PM IN CARDIOPULMONARY DEPARTMENT AT [facility] DR. JACOBSON/JAMARI CARRILLO, ACTOR UNDERSTUDY/NATE RAUSCH APRN ON August AT 1:30, APPOINTMENT (ALREADY SCHEDULED) AT [facility] ON September WITH DR. VINCENT, APPOINTMENT (ALREADY SCHEDULED) WITH DR. CAVANAUGH. CODE STATUS: FULL CODE. TAKE THESE MEDICATIONS AT HOME: Albuterol Sulfate (Albuterol Sulfate (Ventolin Hfa) 18 Gm 1 Puff With Spacer) 2 puff IH RTQ6H PRN Last Admin: 09/05/20 05:25 Dose: 2 puff Documented by: Amlodipine Besylate (Amlodipine Besylate 5 Mg Tablet) 10 mg PO DAILY [facility] Last Admin: 09/05/20 08:32 Dose: 10 mg Documented by: Benazepril HCl (Benazepril Hcl 10 Mg Tablet) 40 mg PO DAILY [facility] Last Admin: 09/05/20 08:32 Dose: 40 mg Documented by: Digoxin (Digoxin 125 Mcg Tablet) 125 mcg PO DAILY [facility] (TO BE STOPPED AT DISCHARGE FOR HOLTER MONITOR) Last Admin: 09/05/20 08:33 Dose: Not Given Documented by: Donepezil HCl (Donepezil Hcl 10 Mg Tablet) 10 mg PO DAILY [facility] Last Admin: 09/05/20 08:33 Dose: 10 mg Documented by: Fenofibrate (Fenofibrate 54 Mg Tablet) 54 mg PO DAILY [facility] Last Admin: 09/05/20 08:33 Dose: 54 mg Documented by: Ferrous Sulfate (Ferrous Sulfate 324 Mg Tablet.) 324 mg PO DAILY [facility] Last Admin: 09/05/20 08:32 Dose: 324 mg Documented by: Furosemide (Furosemide 40 Mg Tablet) 40 mg PO QDAC [facility] Last Admin: 09/05/20 05:54 Dose: 40 mg Documented by: Gabapentin (Gabapentin 300 Mg Capsule) 300 mg PO DAILY [facility] Last Admin: 09/05/20 09:55 Dose: Not Given Documented by: Lorazepam (Lorazepam 1 Mg Tablet) 1 mg PO DAILY PRN PRN Reason: Anxiety Last Admin: 09/02/20 14:26 Dose: 1 mg Documented by: Lorazepam (Lorazepam 1 Mg Tablet) 1 mg PO AT BEDTIME [facility] Last Admin: 09/05/20 08:32 Dose: 1 mg Documented by: Lovastatin (Lovastatin 20 Mg Tablet) 40 mg PO QPM [facility] Last Admin: 09/04/20 17:30 Dose: 40 mg Documented by: Memantine (Memantine Hcl 10 Mg Tablet) 10 mg PO BID [facility] Last Admin: 09/05/20 08:32 Dose: 10 mg Documented by: Non-Formulary Medication (Vit C,S-Al-Evmcj-Lutein-Zeaxan [Preservision Areds-2]) 1 tab PO BEDTIME [facility] Last Admin: 09/04/20 20:16 Dose: Not Given Documented by: Non-Formulary Medication (Insulin Glargine U-300 Conc [Toujeo Solostar U-300 Insulin]) 60 unit SUBCUT BEDTIME [facility] Last Admin: 09/04/20 20:15 Dose: 60 unit Documented by: Omeprazole (Omeprazole 20 Mg Capsule.) 20 mg PO BIDAC [facility] Last Admin: 09/05/20 05:54 Dose: 20 mg Documented by: Prednisone (Prednisone 10 Mg Tablet) 10 mg PO BIDWM [facility] (RX FOR 5 DAYS) Last Admin: 09/05/20 08:32 Dose: 10 mg Documented by: Sertraline HCl (Sertraline Hcl 50 Mg Tablet) 50 mg PO DAILY [facility] Last Admin: 09/05/20 08:32 Dose: 50 mg Documented by: Warfarin Sodium (Warfarin Sodium 3 Mg Tablet) 6 mg PO QPM [facility] Last Admin: 09/04/20 17:41 Dose: 6 mg Documented by: OMNICEF 300 MG BID ( NEW RX FOR 5 DAYS) BREO ELLIPTICAL 1 INHALATION DAILY [facility] LAST ADMIN: ALLERGIES: No Known Allergies Allergy (Verified 08/31/20 13:46) DISCONTINUED MEDICATIONS: METFORMN (PRIOR TO ADMISSION PER FAMILY/MD) DIGOXIN FOR NOW ADDITIONAL MEDICATION INSTRUCTION: TAKE AN EXTRA COUMADIN 6 MG TONIGHT ONLY NEW PRESCRIPTIONS: OMNICEF 300 MG BID FOR 5 DAYS PREDNISONE 10 MG BID FOR 5 DAYS SMOKING: NOT APPLICABLE DISEASE SPECIFIC EDUCATION: PATIENT IS FORGETFUL INSTRUCTIONS TO FAMILY REGARDING APPOINTMENT, MED CHANGE LAB REVIEW: 09/05/20 04:38 09/05/20 04:38 09/05/20 04:38: PT 15.9 H, INR 1.49 09/05/20 04:38: Sodium 138.1, Potassium 3.58, Chloride 92.0 L, Carbon Dioxide 39.9 H, Anion Gap 9.78, BUN 30.3 H, Creatinine 0.85, Estimated GFR (MDRD) 65.00, BUN/Creatinine Ratio 35.64, Glucose 82.9 D, Calcium 8.37 L, Total Bilirubin 0.40, AST 20.3, ALT 13.4, Alkaline Phosphatase 48.5 L, Total Protein 6.16 L, Albumin 3.41 L, Globulin 2.75, Albumin/Globulin Ratio 1.24 09/05/20 04:38: WBC 11.27 H, RBC 3.61 L, Hgb 9.8 L, Hct 31.9 L, MCV 88.4, MCH 27.1, MCHC 30.7 L, RDW Coeff of Monique 16.0 H, Plt Count 225, Immature Gran % (Auto) 0.8, Neut % (Auto) 81.2 H, Lymph % (Auto) 8.4 L, [place] % (Auto) 9.3, Eos % (Auto) 0.2, Baso % (Auto) 0.1, Neut # (Auto) 9.2 H, Lymph # (Auto) 1.0, [place] # (Auto) 1.1, Eos # (Auto) 0.0, Baso # (Auto) 0.0, Immature Gran # (Auto) 0.1 DIET: CONSISTENT CARBOHYDRATE ACTIVITY: GRADUALLY RESUME TOLERATED PHYSICAL THERAPY HAS RECOMMENDED THE USE OF THE WALKER FOR ADDED STABILITY WHEN WALKING HOSPITAL COURSE: 79 year old white female presented to the emergency room with shortness of breath. She has oxygen at home and she also has dementia with severe anxiety. Chest CT showed she had right upper lobe pneumonia along with a already previously known right upper lobe mass. ABG were normal. She was in no actual distress. She sees Dr. Santana as well as Dr. Cavanaugh for the mass in her right upper lobe. She does have underlined COPD as well atrial fibrillation. She is on Coumadin. She was admitted and placed on Rocephin 1 gram IV daily along with Zithromax 500mg IV daily for 3 days, Solu-Medrol 125mg IV Q 8 hours. She has done remarkably well. She has tolerated the steroids. I discontinued IV steroids yesterday and placed her on Prednisone 10mg PO BID and she has tolerated this well. She prefers inhalers over the nebulizer machine and has them at home. Hgb has been stable at 9.8. She has history of chronic anemia, kidney function is lenard. She has had some episodes of increased anxiety which she usual does while hospitalized. Again, she does have moderate dementia. This morning it was noted that she did have a 2.6 second pauses noted on telemetry. She has had no other episodes of this. She was asymptomatic. She was asleep. She is on Digoxin for her atrial fibrillation so we have discontinued this. She will have a Holter Monitor in about 6 days and then she will followup with us in the office. After the 2.6 pause she had no other pauses. Her blood pressure has remained normal. Today on day of discharge it was 138/84. Her blood pressure has remained stable while she has been hospitalized. Also to note her COVID PCR was negative. She will go home with Omnicef 300mg BID for the next 5 days along with Prednisone 10mg BID for 5 days. Again we will discontinue her Digoxin. Also to be noted that Digoxin level was normal. She is to followup with her Holter Monitor as an outpatient and then in our office. Her son, who is her primary career services assistant, has been made known of these appointments. She is discharged in stable condition. TIME SPENT: More than 60 minutes. DEVAN
--- NOTE | 2020-09-11 14:29 | PN ---
DATE OF SERVICE: 09/04/2020 SUBJECTIVE: The patient was seen and examined with the Nurse Practitioner. The patient was hospitalized with pneumonia. The patient has improved. We will continue steroids, NEBS and antibiotics. TIME SPENT: More than 30 minutes. Plan and coordination of the patient's care discussed in the presence of nurse. DEVAN
--- NOTE | 2020-10-03 09:37 | HP ---
DATE OF SERVICE: 08/31/2020 REASON FOR HOSPITALIZATION/HISTORY OF PRESENT ILLNESS: 79 year old white female presents to the emergency room with progressively worsening shortness of breath. She has a history of pneumonia and history of right lung lesion. He sees pulmonology along with anxiety and dementia. PAST MEDICAL HISTORY: Recurrent right upper lobe pneumonia Right upper lobe lung mass COPD uses PRN oxygen History of acute respiratory failure Atrial fibrillation, on Coumadin Chronic anemia Dementia with behavioral disturbances Anxiety Diabetes mellitus type II Obesity Chronic kidney disease stage II to III Diverticulosis Degenerative disc disease of the back Dyslipidemia Macular degeneration Osteoarthritis Metabolic syndrome PAST SURGICAL HISTORY: Heart Cath, [address] Caceres Bilateral total knee Colonoscopy 2019 Status post hysterectomy Last echo 05/2020 with ejection fraction 45%, LVH noted. REVIEW OF SYSTEMS: CONSTITUTIONAL: No night sweats. No fatigue, malaise, lethargy. No fever or chills. HEENT: Eyes: No visual changes. No eye pain. No eye discharge. ENT: No runny nose. No epistaxis. No sinus pain. No sore throat. No odynophagia. No ear pain. No congestion. RESPIRATORY: Cough, no congestion. No hemoptysis. Shortness of breath. CARDIOVASCULAR: No angina symptoms. No CHF symptoms. No atypical chest pain for CAD. No palpitations. No PND. No orthopnea. GASTROINTESTINAL: No abdominal pain. No nausea or vomiting. No diarrhea or constipation. No hematemesis. No hematochezia. GENITOURINARY: No urgency. No frequency. No dysuria. No hematuria. No obstructive symptoms. No discharge. No pain. No significant abnormal bleeding. MUSCULOSKELETAL: No musculoskeletal pain. No joint swelling. No arthritis. NEUROLOGICAL: No headache. No neck pain. No syncope. No seizures. No dizziness. PSYCHIATRIC: Anxious. No depression. No suicidal thoughts. No homicidal thoughts. SKIN: No rash. No lesions. No wounds. ENDOCRINE: No unexplained weight loss. No weight gain. HEMATOLOGIC/LYMPHATIC: No anemia. No purpura. No petechiae. No prolonged or excessive bleeding. No palpable lymph nodes. PERSONAL/FAMILY/SOCIAL HISTORY: She lives with her alf dowel pointer along with they have primary caregivers in and out of the house 24 hours a day. Former smoker. No alcohol or illicit drug use. MEDICATIONS: Furosemide 40mg Q DAC Fenofibrate 54mg PO daily Ventolin HFA 90mCG INH Q 6 hours PRN Digoxin 125mcg PO Daily Namenda 10mg PO BID Lovastatin 40mg PO Q PM Norvasc 10mg PO daily Metformin 1000mg PO BID Lorazepam 1mg PO BEDTIME Omeprazole 20mg PO BID Sertraline 50mg PO Q DAY PreserVision 1 one PO BEDTIME Warfarin 6mg PO Q PM Ferrous Sulfate 325mg PO daily Gabapentin 300mg PO daily Benazepril 40mg PO daily Lorazepam 1mg PO DAILY PRN Toujeo 60 units SUBCUT BEDTIME ALLERGIES: No known allergies PHYSICAL EXAMINATION: GENERAL: The patient is alert and oriented to person and place, not time. VITAL SIGNS: Temperature 96.5, heart rate 79, respiratory rate 22, blood pressure 166/75, pulse ox 87%. HEENT: Head normocephalic, atraumatic. Eyes: Extraocular muscles are intact. Pupils are equal, round and reactive to light and accommodation. Ears: No lesions. Nose appeared normal. Throat: No exudate or erythema. NECK: Supple. No JVD, no carotid bruit. No lymphadenopathy or thyromegaly. LUNGS: Diminished breath sounds bilaterally. Clear to auscultation. Percussion note normal. Chest symmetrical. HEART: S1, S2, no S3. No murmur. No cyanosis or clubbing. No ascites. Pulses: Dorsalis pedis and posterior tibial pulses +1 to +2 bilaterally. ABDOMEN: Soft. Nontender. Bowel sounds active. No CVA tenderness. No mass felt. EXTREMITIES: No edema. Full range of motion of all extremities, equal. NEUROLOGIC: No focal deficit. Cranial nerves II through XII are grossly intact. No headache, no double vision or headache. SKIN: Not dry. Intact. Turgor - normal. LYMPHATIC: No palpable lymph nodes/no lymphedema. MUSCULOSKELETAL: Normal joints with no swelling. Muscle tone is normal. LABS: WBC 10.45, hgb 10.4, hct 34.2, plt count 231, sodium 135, potassium 4.3, BUN 23, creatinine 1.1, glucose 223, ABG on 3 liters O2 saturation 98, pH 7.42, pCO2 57, pO 120, bicarb 37. Total CO2 38.7. CT of the chest without shows increased right upper lobe consolidation, raise concern for underlining neoplasm possible post obstructive pneumonia, right pleural effusions, left pleural effusion. ASSESSMENT: 1. Right upper lobe pneumonia 2. Known right upper lobe mass, followed by Dr. Palmer 3. Acute respiratory failure 4. Dementia with behavioral disturbances 5. Atrial fibrillation 6. Diabetes Mellitus type II PLAN: 1. We will admit 2. Routine telemetry orders 3. CBC and CMP and INR daily 4. Continue home medications 5. Sliding scale for insulin 6. Rocephin 1 gram IV daily 7. Vancomycin 1 gram IV Q 12 hours 8. Solu-cortef 125mg IV Q 8 hours 9. Oxygen at 2 liters 10. Repeat ABGs in two hours 11. Regular diet 12. Fall precautions 13. Ativan 1mg PO BID PRN for anxiety We will follow closely. TIME SPENT: More than 70 minutes. MTDD
== END 2020-09-05 13:20 | disposition home or self-care (01) | DRG 189 ==
LOC: ED 13:27 → MEDSURG A 17:57
PROVIDERS: ADMIT Internal Medicine; ATTEND Internal Medicine
DX: F03.91 Unspecified dementia, unspecified severity, with behavioral disturbance; Z79.01 Long term (current) use of anticoagulants; J96.00 Acute respiratory failure, unspecified whether with hypoxia or hypercapnia; R06.2 Wheezing; R06.02 Shortness of breath; F41.9 Anxiety disorder, unspecified; D64.9 Anemia, unspecified; Z20.822 Contact with and (suspected) exposure to COVID-19; R05 Cough; I48.91 Unspecified atrial fibrillation; N18.2 Chronic kidney disease, stage 2 (mild); E11.9 Type 2 diabetes mellitus without complications; Z99.81 Dependence on supplemental oxygen; R91.8 Other nonspecific abnormal finding of lung field; J44.9 Chronic obstructive pulmonary disease, unspecified

== ENCOUNTER 2020-11-08 14:10 | Inpatient (IN) ==
[2020-11-08 14:25] LABS: ABG O2 HGB 63.8 % (95-100); ABG PH 7.34 (7.35-7.45); BEecf 8.2 (-2.0-3.0); COHb 2.6 (0.5-1.5); MetHb 1.3 (0-1.5); TCO2 35.9 (19-24); sO2 66.6 % (94-98)
--- NOTE | 2020-11-08 14:29 | ED.PDOC ---
General ED Provider: Dr. RAFA ORTEGA Chief Complaint: Shortness of Air Stated Complaint: Short of air, cough Time Seen by Provider: 11/08/20 14:29 Mode of Arrival: Wheelchair Information Source: Patient and Family (Granddaughter) Exam Limitations: No limitations Primary Care Provider: FRENCH EID Nursing and Triage Documentation Reviewed and Agree: Yes Does patient meet sepsis criteria?: No System Inflammatory Response Syndrome: Not Applicable Sepsis Protocol: For patient's 13 years and over: Temp is 96.8 and below OR 101 and greater Pulse >90 BPM Resp >20/minute Acutely Altered Mental Status Are patient's symptoms suggestive of a new infection, such as: -Pneumonia -Skin, Soft Tissue -Endocarditis -UTI -Bone, Joint Infection -Implantable Device -Acute Abdominal Infection -Wound Infection -Meningitis -Blood Stream Catheter Infection -Unknown Respiratory Complaint Exam Respiratory Complaint/Exam Onset/Duration: today Symptoms Are: Still present Timing: Constant Initial Severity: Moderate Current Severity: Moderate Character: Reports Non-productive cough Aggravating: Reports Exertion and Recumbent position Alleviating: Reports Bronchodilators and Upright position Associated Signs and Symptoms: Reports Dyspnea; Denies Chills, Chest pain, P leuritic chest pain, Wheezing, Hemoptysis, Dizziness and Calf pain Related History: Reports Similar episode History of Healthcare-Acquired Pneumonia: No Related Surgical History: Reports None Pulmonary Embolism Risk Factors: None Cardiac Risk Factors: Reports Diabetes, Hypertension and CHF Pseudomonas Risk Factors: Reports None Tuberculosis Risk Factors: Reports None Status Asthmaticus Risk Factors: Reports None Home Oxygen Use: Yes (2 liters) Recent Stress Test: No Recent Echo/LV Function: No Current Antibiotic Use: No Respiratory Distress: Mild Inadequate Respiratory Effort: No Dysphagia Present: No Stridor Present: No JVD Present: No Accessory Muscle Use: No Retractions: Not Present Diminished Breath Sounds: Yes Prolonged Respiration: Expiratory phase Sinus Tenderness: None Grunting Respirations: No Kussmaul Respirations: No Differential Diagnoses: CHF, Pulmonary Edema, COPD Exacerbation, Pneumonia and Bronchospasm Review of Systems Review Of Systems Constitutional: Reports Malaise and Weakness Eyes: Reports No symptoms Ears, Nose, Mouth, Throat: Reports No symptoms Respiratory: Reports Cough (little sputum) Cardiac: Reports No symptoms GI: Reports No symptoms : Reports No symptoms Musculoskeletal: Reports No symptoms Skin: Reports No symptoms Neurological: Reports No symptoms Endocrine: Reports No symptoms Hematologic/Lymphatic: Reports No symptoms All Other Systems: Reviewed and Negative [facility] Medical History A-fib Anxiety Arthritis CAD (coronary artery disease) COPD (chronic obstructive pulmonary disease) CVA (cerebral vascular accident) Depression Diabetes GERD (gastroesophageal reflux disease) Hyperlipidemia Hypertension Lung tumor (~2020) Myocardial infarction Sensorineural hearing loss (SNHL) of both ears Family History BROTHER Arthritis SISTER COPD (chronic obstructive pulmonary disease) FATHER CVA (cerebral vascular accident) Mother Hypertension Mother Diabetes SISTER Diabetes Social History Smoking and tobacco status: Former smoker Alcohol intake: never Number of children: 2 Number of grandchildren: 3 Highest education level completed: Associate degree: academic program Pets and animals: Yes Sexually active: No Do you think of yourself as: straight/heterosexual Current gender identity: female Current diet type/program: diabetic Well-balanced diet: rarely Caffeine: Yes Water heater temperature set < 120 degrees: Yes Working smoke detector in home: Yes Fire extinguisher in home: Yes Carbon monoxide detector in home: Yes Firearms in home: Yes Firearms unloaded and locked: Yes Surgical History History of hysterectomy Total knee replacement status Female Reproductive History Menstrual Hx Hysterectomy: Yes Hx Tubal Ligation: No Physical Exam Physical Exam Appearance: Reports Ill-appearing Ill-appearing: Moderate Pain Distress: None Eyes: Reports EOMI and Conjunctiva clear ENT: Reports Oropharynx normal Neck: Supple Respiratory: Reports Airway patent and Breath sounds clear Cardiovascular: Reports RRR, Pulses normal, No rub, No murmur and Irregular rhythm GI/: Reports Nontender and No masses Musculoskeletal: Reports Normal strength and ROM intact Skin: Reports Warm and Dry Neurological: Reports Sensation intact, Motor intact and Alert Psychiatric: Reports Affect appropriate and Mood appropriate Interpretation Radiology Interpretation Radiology Interpretation By: Radiologist Radiology Results: Positive Exam Interpreted: Portable CXR Xray Comments: bibas atelec vs infiltrate vs CHF Physician Notification Case Discussed Physician Notified: Dr. Eid Time of Notification: 15:00 Comments: Admit. Critical Care Note Critical Care Note Total Critical Care Time (mins): 0 Course Course Hematology/Chemistry: 07/22/21 01:45 11/09/20 01:45 Orders, Labs, Meds: Lab Review 11/08/20 11/08/20 11/08/20 14:22 14:33 14:35 WBC 7.32 RBC 4.02 L Hgb 10.9 L Hct 36.8 L MCV 91.5 MCH 27.1 MCHC 29.6 L RDW Coeff of Monique 17.1 H Plt Count 228 Immature Gran % (Auto) 0.3 Neut % (Auto) 82.4 H Lymph % (Auto) 7.4 L [place] % (Auto) 7.1 Eos % (Auto) 2.5 Baso % (Auto) 0.3 Neut # (Auto) 6.0 Lymph # (Auto) 0.5 L [place] # (Auto) 0.5 Eos # (Auto) 0.2 Baso # (Auto) 0.0 Immature Gran # (Auto) 0.0 PT INR Puncture Site R rad Base Excess 8.2 H O2 Saturation 66.6 L ABG pH 7.34 L ABG pCO2 63.0 H ABG pO2 37.0 L* ABG HCO3 34.0 H ABG Total CO2 35.9 H Adam Test Y Hemoglobin 1.3 Oxyhemoglobin 63.8 L Carboxyhemoglobin 2.6 H Total Hemoglobin 11.0 L O2 Delivery Device Oxygen Liter Flow FiO2 % 21.0 Sodium Potassium Chloride Carbon Dioxide Anion Gap BUN Creatinine Estimated GFR (MDRD) BUN/Creatinine Ratio Glucose Calcium Magnesium Total Bilirubin AST ALT Alkaline Phosphatase Troponin I NT-Pro-B Natriuret Pep Total Protein Albumin Globulin Albumin/Globulin Ratio Adenovirus (PCR) Not detected B. pertussis DNA (PCR) Not detected B.parapertussis DNA PCR Not detected C. pneumoniae DNA (PCR) Not detected Coronavirus OC43 (PCR) Not detected Coronavirus HKU1 (PCR) Not detected Coronavirus 229E (PCR) Not detected Coronavirus NL63 (PCR) Not detected Human Metapneumovir PCR Not detected Influenza Type A (PCR) Not detected Influenza B (RT-PCR) Not detected M. pneumoniae (PCR) Not detected Parainfluenza 1 (PCR) Not detected Parainfluenza 2 (PCR) Not detected Parainfluenza 3 (PCR) Not detected Parainfluenza 4 (PCR) Not detected RSV (PCR) Not detected Entero/Rhino (PCR) Not detected SARS-CoV-2 (PCR) Not detected 11/08/20 11/08/20 11/08/20 14:35 14:40 16:07 WBC RBC Hgb Hct MCV MCH MCHC RDW Coeff of Monique Plt Count Immature Gran % (Auto) Neut % (Auto) Lymph % (Auto) [place] % (Auto) Eos % (Auto) Baso % (Auto) Neut # (Auto) Lymph # (Auto) [place] # (Auto) Eos # (Auto) Baso # (Auto) Immature Gran # (Auto) PT 16.7 H INR 1.57 Puncture Site Lbrach Base Excess 9.8 H O2 Saturation 89.9 L ABG pH 7.34 L ABG pCO2 66.0 H ABG pO2 62.0 L ABG HCO3 35.6 H ABG Total CO2 37.6 H Adam Test Hemoglobin 0.7 Oxyhemoglobin 89.6 L Carboxyhemoglobin 2.9 H Total Hemoglobin 11.1 L O2 Delivery Device Cannula Oxygen Liter Flow 3.00 FiO2 % Sodium 138.1 Potassium 4.76 Chloride 98.6 Carbon Dioxide 35.1 H Anion Gap 9.16 BUN 23.9 H Creatinine 1.26 Estimated GFR (MDRD) 41.00 BUN/Creatinine Ratio 18.96 Glucose 171.8 H Calcium 8.19 L Magnesium 2.29 Total Bilirubin 0.46 AST 26.1 ALT 13.0 Alkaline Phosphatase 72.9 Troponin I < 0.012 NT-Pro-B Natriuret Pep 1590.000 H Total Protein 6.83 Albumin 3.96 Globulin 2.87 Albumin/Globulin Ratio 1.37 Adenovirus (PCR) B. pertussis DNA (PCR) B.parapertussis DNA PCR C. pneumoniae DNA (PCR) Coronavirus OC43 (PCR) Coronavirus HKU1 (PCR) Coronavirus 229E (PCR) Coronavirus NL63 (PCR) Human Metapneumovir PCR Influenza Type A (PCR) Influenza B (RT-PCR) M. pneumoniae (PCR) Parainfluenza 1 (PCR) Parainfluenza 2 (PCR) Parainfluenza 3 (PCR) Parainfluenza 4 (PCR) RSV (PCR) Entero/Rhino (PCR) SARS-CoV-2 (PCR) Orders Category Date Time Status ABG DRAW REQUEST Stat CARDIO 11/08/20 14:22 Completed ABG DRAW REQUEST Stat CARDIO 11/08/20 16:06 Completed EKG-(ED ONLY) Stat CARDIO 11/08/20 14:30 Completed ABG COOX Stat LAB 11/08/20 14:22 Completed ABG COOX Stat LAB 11/08/20 16:07 Completed CBC W/ AUTO DIFF Stat LAB 11/08/20 14:35 Completed COMPREHENSIVE METABOLIC PANEL Stat LAB 11/08/20 14:35 Completed MAGNESIUM Stat LAB 11/08/20 14:35 Completed NT-PROBNP Stat LAB 11/08/20 14:35 Completed PT WITH INR Stat LAB 11/08/20 14:40 Completed RESPIRATORY PANEL 2.1 (PCR) Stat LAB 11/08/20 14:33 Completed TROPONIN I Stat LAB 11/08/20 14:35 Completed Ceftriaxone/D5w 1 gm Premix [Rocephin 1 gm/50 ml D5w] MEDS 11/08/20 16:02 Discontinued 1 gm in 50 ml IV ONCE Furosemide [Lasix] MEDS 11/08/20 16:02 Discontinued 40 mg IVP ONCE ONE Methylprednisolone Sod Succ/Pf [Solu-Medrol 125 mg] MEDS 11/08/20 14:48 Discontinued 125 mg IVP ONCE ONE CHEST, 1V AP ONLY Stat RADS 11/08/20 14:30 Completed Medications Generic Name Dose Route Start Last Admin Trade Name Freq PRN Reason Stop Dose Admin Acetaminophen 650 mg 11/08/20 17:36 Acetaminophen 325 Mg Tablet PO Q4H PRN Headache Albuterol Sulfate 2 puff 11/08/20 19:32 Albuterol Sulfate 8.5 Gm Inhaler (Single Patient Use) IH Q6H PRN FOR SOA AND WHEEZING Albuterol/Ipratropium 3 ml 11/08/20 20:00 11/08/20 20:10 Ipratropium/Albuterol Vial.Neb NEB 3 ml RTQID MARIANNE Administration Alprazolam 0.25 mg 11/08/20 19:30 11/08/20 21:19 Alprazolam 0.25 Mg Tablet PO Not Given QID MARIANNE Amlodipine Besylate 10 mg 11/09/20 09:00 Amlodipine Besylate 5 Mg Tablet PO DAILY MARIANNE Atropine Sulfate 0.5 mg 11/08/20 17:36 Atropine Sulfate Inj 1 Mg/10 Ml Disp.Syrin IVP ONCE PRN Symptomatic Bradycardia Azelastine HCl 2 spray 11/08/20 21:00 11/08/20 21:12 Azelastine Hcl 30 Ml Nasal [place] 2 spray BEDTIME MARIANNE Administration Benazepril HCl 40 mg 11/09/20 09:00 Benazepril Hcl 10 Mg Tablet PO DAILY MARIANNE Budesonide 1 mg 11/08/20 21:00 11/08/20 20:10 Budesonide 1 Mg/2 Ml Vial.Neb NEB 1 mg RTBID MARIANNE Administration Donepezil HCl 10 mg 11/09/20 09:00 Donepezil Hcl 10 Mg Tablet PO DAILY MARIANNE Fenofibrate 54 mg 11/09/20 09:00 Fenofibrate 54 Mg Tablet PO DAILY [facility] Ferrous Sulfate 324 mg 11/09/20 09:00 Ferrous Sulfate 324 Mg Tablet. PO DAILY [facility] Fluticasone Propionate 2 spray 11/09/20 09:00 Fluticasone Propionate 16 Gm Nasal [place] DAILY MARIANNE Furosemide 20 mg 11/09/20 06:30 Furosemide Inj 20 Mg/2 Ml Vial IVP QDAC [facility] Gabapentin 300 mg 11/09/20 09:00 Gabapentin 300 Mg Capsule PO DAILY [facility] CEFTRIAXONE/D5W 1 GM PREMIX 1 gm in 50 mls @ 75 mls/hr 11/09/20 17:00 Rocephin 1 Gm/50 Ml D5w IV 11/12/20 16:59 1700 [facility] Insulin Human Regular 0 unit 11/08/20 19:27 11/08/20 21:16 Insulin Regular, Human 100 Unit/Ml (3ml) Vial SUBCUT 4 unit PRN PRN Administration Hyperglycemia Protocol Loratadine 10 mg 11/09/20 09:00 Loratadine 10 Mg Tablet PO DAILY [facility] Lovastatin 80 mg 11/09/20 17:00 Lovastatin 20 Mg Tablet PO QPM MARIANNE Memantine 10 mg 11/08/20 21:00 11/08/20 21:13 Memantine Hcl 10 Mg Tablet PO 10 mg BID MARIANNE Administration Methylprednisolone Sodium Succinate 125 mg 11/08/20 21:00 11/09/20 05:03 Methylprednisolone Sod Succ/Pf 125 Mg/2 Ml Vial IVP 125 mg Q8HR MARIANNE Administration Morphine Sulfate 1 - 2 mg 11/08/20 20:43 11/09/20 05:03 Morphine Sulfate 2 Mg/Ml Syringe IVP 2 mg Q3-4H PRN Administration Agitation Nitroglycerin 0.4 mg 11/08/20 17:36 Nitroglycerin 0.4 Mg Tab.Subl SL Q5MIN X 3 DOSES PRN Chest Pain Omeprazole 20 mg 11/08/20 21:00 11/08/20 21:13 Omeprazole 20 Mg Capsule.Dr PO 20 mg BID MARIANNE Administration Sertraline HCl 50 mg 11/08/20 18:00 11/08/20 18:41 Sertraline Hcl 50 Mg Tablet PO 50 mg DAILY MARIANNE Administration Sodium Chloride 1 syr 11/08/20 21:00 11/09/20 05:03 0.9% Sodium Chloride 10 Ml Disp.Syrin IVF 1 syr Q8HR MARIANNE Administration Warfarin Sodium 6 mg 11/09/20 17:00 Warfarin Sodium 3 Mg Tablet PO QPM MARIANNE Warfarin Sodium 1 mg 11/09/20 17:00 Warfarin Sodium 1 Mg Tablet PO QPM MARIANNE Discontinued Medications Generic Name Dose Route Start Last Admin Trade Name Freq PRN Reason Stop Dose Admin Budesonide 1 mg 11/09/20 06:00 Budesonide 1 Mg/2 Ml Vial.Neb NEB RTBID MARIANNE Furosemide 40 mg 11/08/20 16:02 11/08/20 16:45 Furosemide Inj 40 Mg/4 Ml Vial IVP 11/08/20 16:03 40 mg ONCE ONE Administration CEFTRIAXONE/D5W 1 GM PREMIX 1 gm in 50 mls @ 75 mls/hr 11/08/20 16:02 16:46 Rocephin 1 Gm/50 Ml D5w IV 11/08/20 16:41 75 mls/hr ONCE ONE Administration Methylprednisolone Sodium Succinate 125 mg 11/08/20 14:48 11/08/20 14:56 Methylprednisolone Sod Succ/Pf 125 Mg/2 Ml Vial IVP 11/08/20 14:49 125 mg ONCE ONE Administration Morphine Sulfate 3 mg 11/09/20 23:30 Morphine Sulfate 4 Mg/Ml Syringe IVP 11/09/20 23:31 ONCE ONE Morphine Sulfate 3 mg 11/08/20 23:30 11/08/20 23:34 Morphine Sulfate 4 Mg/Ml Syringe IVP 11/08/20 23:31 3 mg ONCE ONE Administration Vital Signs: Temp Pulse Resp BP Pulse Ox 11/08/20 14:22 97.7 F 101 H 18 112/88 72 L Discharge Plan Discharge Patient Disposition: ADMITTED INPATIENT Discharge Problem: Pneumonia ED Provider: RAFA ORTEGA Condition: Good Physician Progress Note: Admit for acute on chronic CHF, COPD exac. Full code.]
[2020-11-08 14:43] LABS: BASOPHILS % (AUTO) 0.3 % (0.0-3.0); EOSINOPHILS # (AUTO) 0.2 K/ul (0.0-0.7); EOSINOPHILS % (AUTO) 2.5 % (0.0-7.0); HEMATOCRIT 36.8 % (37.0-47.0); HEMOGLOBIN 10.9 g/dl (12.0-16.0); IMMATURE GRANULOCYTE % (AUTO) 0.3 % (0.0-5.0); LYMPHOCYTES # (AUTO) 0.5 K/uL (0.60-3.4); MEAN CORPUSCULAR HEMOGLOBIN 27.1 pg (27.0-31.0); MEAN CORPUSCULAR HGB CONC 29.6 (31.8-35.4); MEAN CORPUSCULAR VOLUME 91.5 fl (81.0-99.0); MONOCYTES # (AUTO) 0.5 K/uL (0.4-2.0); MONOCYTES % (AUTO) 7.1 (0-10); NEUTROPHILS % (AUTO) 82.4 % (42.2-75.2); PLATELET COUNT 228 10^3/uL (140-440); RDW COEFFICIENT OF VARIATION 17.1 % (11.6-14.8); RED BLOOD COUNT 4.02 10^6/ul (4.20-5.40); WHITE BLOOD COUNT 7.32 K/ul (4.6-10.2)
[2020-11-08] MEDS ORDERED: SOLU-MEDROL 125 MG IVP ONE (14:48)
[2020-11-08 14:55] LABS: PROTHROMBIN TIME 16.7 SEC (9.3-11.0)
[2020-11-08 14:58] LABS: ALBUMIN 3.96 g/dL (3.5-5.0); ALKALINE PHOSPHATASE 72.9 U/L (53-141); ASPARTATE AMINO TRANSFERASE 26.1 U/L (14-36); BILIRUBIN,TOTAL 0.46 mg/dL (0.2-1.3); BLOOD UREA NITROGEN 23.9 mg/dL (7-17); CALCIUM 8.19 mg/dL (8.4-10.2); CARBON DIOXIDE 35.1 mmol/L (22-30.0); CHLORIDE 98.6 mmol/L (98-107); CREATININE 1.26 mg/dL (0.60-1.30); GLUCOSE 171.8 mg/dL (74-106); LYMPHOCYTES % (AUTO) 7.4 (10.0-50.0); MAGNESIUM 2.29 mg/dL (1.6-2.3); POTASSIUM 4.76 mmol/L (3.5-5.1); SODIUM 138.1 mmol/L (134.5-145); TOTAL PROTEIN 6.83 g/dL (6.3-8.2)
--- NOTE | 2020-11-08 15:05 | DI ---
EXAM: Frontal view of the chest. HISTORY: Chronic obstructive pulmonary disease. COMPARISON: Chest radiograph 09/04/2020. FINDINGS: Calcific atherosclerosis of the aorta. Normal heart size. Small right pleural effusion and bibasilar opacities. Interstitial prominence. No visible pneumothorax. Partially imaged lumbar fusion hardware. IMPRESSION: Small right pleural effusion and bibasilar opacities likely representing atelectasis. Potential mild interstitial edema. Calcific atherosclerosis.
[2020-11-08 15:12] LABS: TROPONIN I < 0.012 ng/ml (0.0000-0.120)
[2020-11-08] MEDS ORDERED: ROCEPHIN 1 GM/50 ML D5W 1 GM/50 ML BAG IV ONE (16:02)
[2020-11-08] MEDS ORDERED: LASIX IVP ONE ×2 (16:02)
[2020-11-08 16:08] LABS: BORDETELLA PARAPERTUSSIS (PCR) NOT DETECTED (NOT DETECT); BORDETELLA PERTUSSIS (PCR) NOT DETECTED (NOT DETECT); CHLAMYDIA PNEUMONIAE (PCR) NOT DETECTED (NOT DETECT); CORONAVIRUS 229E (PCR) NOT DETECTED (NOT DETECT); CORONAVIRUS HKU1 (PCR) NOT DETECTED (NOT DETECT); CORONAVIRUS NL63 (PCR) NOT DETECTED (NOT DETECT); CORONAVIRUS OC43 (PCR) NOT DETECTED (NOT DETECT); HUMAN METAPNEUMOVIRUS (PCR) NOT DETECTED (NOT DETECT); HUMAN RHINOVIRUS/ENTEROV (PCR) NOT DETECTED (NOT DETECT); INFLUENZA B (PCR) NOT DETECTED (NOT DETECT); MYCOPLASMA PNEUMONIAE (PCR) NOT DETECTED (NOT DETECT); PARAINFLUENZA VIRUS 1 (PCR) NOT DETECTED (NOT DETECT); PARAINFLUENZA VIRUS 2 (PCR) NOT DETECTED (NOT DETECT); PARAINFLUENZA VIRUS 3 (PCR) NOT DETECTED (NOT DETECT); PARAINFLUENZA VIRUS 4 (PCR) NOT DETECTED (NOT DETECT); RESPIRATORY SYNCYTIAL V (PCR) NOT DETECTED (NOT DETECT); SARS_COV_2 (PCR) NOT DETECTED (NOT DETECT)
[2020-11-08 16:26] LABS: ABG O2 HGB 89.6 % (95-100); ABG PH 7.34 (7.35-7.45); BEecf 9.8 (-2.0-3.0); COHb 2.9 (0.5-1.5); HCO3 35.6 (21-28); MetHb 0.7 (0-1.5); TCO2 37.6 (19-24); sO2 89.9 % (94-98); tHb 11.1 g/dl (11.7-17.4)
[2020-11-08 16:57] LABS: ADENOVIRUS (PCR) NOT DETECTED (NOT DETECT)
[2020-11-08] MEDS ORDERED: TYLENOL PO PRN (17:36)
[2020-11-08] MEDS ORDERED: NITROSTAT SL PRN (17:36)
[2020-11-08] MEDS ORDERED: ATROPINE SULFATE PFS IVP PRN (17:36)
[2020-11-08] MEDS ORDERED: VENTOLIN HFA (PER PUFF-WITH SPACER) IH PRN ×2 (17:38→19:04)
[2020-11-08 18:29] LABS: BILIRUBIN,URINE Negative (NEGATIVE); CLARITY,URINE Clear (CLEAR); COLOR,URINE Yellow (YELLOW); GLUCOSE, URINE (UA) Negative (NEGATIVE); KETONES,URINE Negative (NEGATIVE); LEUKOCYTE ESTERASE ,URINE Negative (NEGATIVE); NITRITE,URINE Negative (NEGATIVE); PH,URINE 6.5 (5-9); PROTEIN,URINE Negative (NEGATIVE); URINE, BLOOD Negative (NEGATIVE); UROBILINOGEN,URINE 0.2 (0.2)
[2020-11-08 18:38] VITALS: BMI 41.9
[2020-11-08] MEDS: ZOLOFT PO SCH (18:41)
[2020-11-08] MEDS: XANAX PO SCH ×2 (19:46→21:19)
[2020-11-08] MEDS: PULMICORT 1 MG/2 ML NEB SCH (20:10)
[2020-11-08] MEDS: DUONEB NEB SCH (20:10)
[2020-11-08] MEDS ORDERED: PRILOSEC PO SCH (21:00)
[2020-11-08] MEDS ORDERED: LANTUS SUBCUT SCH (21:00)
[2020-11-08] MEDS: PROAIR HFA (SINGLE PATIENT USE) IH PRN (21:12)
[2020-11-08] MEDS: ASTELIN 0.1% NAS SCH (21:12)
[2020-11-08] MEDS: NAMENDA PO SCH (21:13)
[2020-11-08] MEDS: MORPHINE 2 MG/ML SYRINGE IVP PRN (21:13)
[2020-11-08] MEDS: HUMULIN R SUBCUT PRN (21:16)
[2020-11-08] MEDS: SOLU-MEDROL 125 MG IVP SCH (21:18)
[2020-11-08] MEDS ORDERED: MORPHINE 4 MG/ML SYRINGE IVP ONE (23:30)
[2020-11-09 02:09] LABS: BASOPHILS % (AUTO) 0.1 % (0.0-3.0); HEMATOCRIT 34.8 % (37.0-47.0); HEMOGLOBIN 10.4 g/dl (12.0-16.0); IMMATURE GRANULOCYTE # (AUTO) 0.1 (0.0-1.0); IMMATURE GRANULOCYTE % (AUTO) 1.1 % (0.0-5.0); LYMPHOCYTES # (AUTO) 0.2 K/uL (0.60-3.4); LYMPHOCYTES % (AUTO) 2.1 (10.0-50.0); MEAN CORPUSCULAR HEMOGLOBIN 27.2 pg (27.0-31.0); MEAN CORPUSCULAR HGB CONC 29.9 (31.8-35.4); MEAN CORPUSCULAR VOLUME 90.9 fl (81.0-99.0); MONOCYTES % (AUTO) 0.6 (0-10); NEUTROPHILS # (AUTO) 6.9 K/ul (2.0-6.9); NEUTROPHILS % (AUTO) 96.1 % (42.2-75.2); PLATELET COUNT 195 10^3/uL (140-440); RDW COEFFICIENT OF VARIATION 16.9 % (11.6-14.8); RED BLOOD COUNT 3.83 10^6/ul (4.20-5.40); WHITE BLOOD COUNT 7.14 K/ul (4.6-10.2)
[2020-11-09 03:27] LABS: ALANINE AMINOTRANSFERASE 14.1 U/L (0-35); ALBUMIN 3.74 g/dL (3.5-5.0); ALKALINE PHOSPHATASE 68.6 U/L (53-141); ASPARTATE AMINO TRANSFERASE 25.3 U/L (14-36); BILIRUBIN,TOTAL 0.37 mg/dL (0.2-1.3); BLOOD UREA NITROGEN 26.4 mg/dL (7-17); CALCIUM 8.25 mg/dL (8.4-10.2); CARBON DIOXIDE 32.2 mmol/L (22-30.0); CREATININE 1.15 mg/dL (0.60-1.30); GLUCOSE 274.7 mg/dL (74-106); POTASSIUM 4.63 mmol/L (3.5-5.1); TOTAL PROTEIN 6.43 g/dL (6.3-8.2)
[2020-11-09 03:52] LABS: PROTHROMBIN TIME 15.7 SEC (9.3-11.0)
[2020-11-09] MEDS: PULMICORT 1 MG/2 ML NEB SCH ×2 (04:35→20:06)
[2020-11-09] MEDS: DUONEB NEB SCH ×4 (04:35→20:06)
[2020-11-09] MEDS: SOLU-MEDROL 125 MG IVP SCH ×3 (05:03→21:58)
[2020-11-09] MEDS: MORPHINE 2 MG/ML SYRINGE IVP PRN ×2 (05:03→23:33)
[2020-11-09] MEDS ORDERED: PULMICORT 1 MG/2 ML NEB SCH (06:00)
[2020-11-09] MEDS ORDERED: LASIX IVP SCH (06:30)
[2020-11-09] MEDS: HUMULIN R SUBCUT PRN ×4 (06:33→20:13)
[2020-11-09] MEDS: XANAX PO SCH ×4 (08:27→21:58)
[2020-11-09] MEDS: NORVASC PO SCH (08:28)
[2020-11-09] MEDS: ARICEPT PO SCH (08:28)
[2020-11-09] MEDS: CLARITIN PO SCH (08:28)
[2020-11-09] MEDS: NAMENDA PO SCH ×2 (08:28→20:13)
[2020-11-09] MEDS: NEURONTIN PO SCH (08:29)
[2020-11-09] MEDS: ZOLOFT PO SCH (08:29)
[2020-11-09] MEDS: PRILOSEC PO SCH ×2 (08:29→17:22)
[2020-11-09] MEDS: TRIGLIDE PO SCH (08:29)
[2020-11-09] MEDS: LOTENSIN PO SCH (08:30)
[2020-11-09] MEDS: FERROUS SULFATE PO SCH (08:30)
[2020-11-09] MEDS: ROCEPHIN 1 GM/50 ML D5W 1 GM/50 ML BAG IV SCH (08:31)
[2020-11-09] MEDS ORDERED: COUMADIN PO ONE (09:00)
--- NOTE | 2020-11-09 09:40 | PCM.PROG ---
Attending Provider: ATTENDING PROVIDER: Dr. FRENCH JACOBSON This patient is seen with Antoinette Martínez, Nurse Practitioner. DATE OF SERVICE: 11/09/20 SUBJECTIVE: This 79 year old /WHITE F was hospitalized 11/08/20. The patient is resting comfortably. Restless through the night, had Morphine. She is pleasantly confused this morning. Sating around 91% on 3 liters. Coughing. REVIEW OF SYSTEMS: CONSTITUTIONAL: No night sweats. No fatigue, malaise, lethargy. No fever or chil ls. HEENT: Eyes: No visual changes. No eye pain. No eye discharge. ENT: No runny nose. No epistaxis. No sinus pain. No odynophagia. No congestion. RESPIRATORY: Cough, no congestion. No hemoptysis. Shortness of breath. CARDIOVASCULAR: No angina symptoms. No CHF symptoms. No atypical chest pain for CAD. No palpitations. No orthopnea.. GASTROINTESTINAL: No abdominal pain. No nausea or vomiting. No diarrhea or constipation. No hematemesis. No hematochezia. GENITOURINARY: No urgency. No frequency. No dysuria. No hematuria. No obstructive symptoms. No discharge. No pain. No significant abnormal bleeding. MUSCULOSKELETAL: No musculoskeletal pain; no joint swelling. NEUROLOGICAL: Awake, alert, confusion. No headache. No neck pain. No syncope. No seizures. No dizziness. PSYCHIATRIC: Not anxious. No depression. No suicidal thoughts. No homicidal thoughts. SKIN: No rash. No lesions. No wounds. ENDOCRINE: No unexplained weight loss. No weight gain. HEMATOLOGIC/LYMPHATIC: No anemia. No purpura. No petechiae. No prolonged or excessive bleeding. No palpable lymph nodes. PHYSICAL EXAMINATION: GENERAL: The patient is awake, alert and oriented, lying in bed in no distress. VITAL SIGNS: Temperature 97.8 F, Pulse 95, Respiratory Rate 18, BP 135/78, Pulse Ox 91% HEENT: Head normocephalic, atraumatic. Eyes: Extraocular muscles are intact. Pupils are equal, round and reactive to light and accommodation. Ears: No lesions. Nose appeared normal. Throat: No exudate or erythema. NECK: Supple. No JVD, no carotid bruit. No lymphadenopathy or thyromegaly. LUNGS: Diminished breath sounds. Bilateral inspiratory and expiratory wheezing. Clear to auscultation. Percussion note normal. Chest symmetrical. HEART: S1, S2, no S3. No murmurs. No cyanosis or clubbing. No ascites. Pulses: Dorsalis pedis and posterior tibial pulses +1 to +2 both sides. ABDOMEN: Soft. Non-tender. Bowel sounds active. No CVA tenderness. No mass felt. EXTREMITIES: No edema. Full range of motion of all extremities, equal. NEUROLOGIC: No focal deficit. Cranial nerves II through XII are grossly intact. No headache. No double vision. SKIN: Not dry. Intact. Turgor-normal. LYMPHATIC: No palpable lymph nodes/no lymphedema. MUSCULOSKELETAL: Normal joints with no swelling. Muscle tone is normal. LAB REVIEW: 11/09/20 01:45 11/09/20 01:45 11/09/20 01:45: Sodium 135.0, Potassium 4.63, Chloride 98.0, Carbon Dioxide 32.2 H, Anion Gap 9.43, BUN 26.4 H, Creatinine 1.15, Estimated GFR (MDRD) 46.00, BUN/Creatinine Ratio 22.95, Glucose 274.7 H D, Calcium 8.25 L, Total Bilirubin 0.37, AST 25.3, ALT 14.1, Alkaline Phosphatase 68.6, Total Protein 6.43, Albumin 3.74, Globulin 2.69, Albumin/Globulin Ratio 1.39 11/09/20 01:45: PT 15.7 H, INR 1.47 11/09/20 01:45: WBC 7.14, RBC 3.83 L, Hgb 10.4 L, Hct 34.8 L, MCV 90.9, MCH 27.2, MCHC 29.9 L, RDW Coeff of Monique 16.9 H, Plt Count 195, Immature Gran % (Auto) 1.1, Neut % (Auto) 96.1 H, Lymph % (Auto) 2.1 L, Lat[place] % (Auto) 0.6, Eos % (Auto) 0.0, Baso % (Auto) 0.1, Neut # (Auto) 6.9, Lymph # (Auto) 0.2 L, Latimer # (Auto) 0.0 L, Eos # (Auto) 0.0, Baso # (Auto) 0.0, Immature Gran # (Auto) 0.1 11/09/20 01:36: Troponin I < 0.012 11/08/20 18:23: Urine Color Yellow, Urine Clarity Clear, Urine pH 6.5, Ur Specific [place] 1.010, Urine Protein Negative, Urine Glucose (UA) Negative, Urine Ketones Negative, Urine Blood Negative, Urine Nitrite Negative, Urine Bilirubin Negative, Urine Urobilinogen 0.2, Ur Leukocyte Esterase Negative 11/08/20 17:51: Troponin I < 0.012 11/08/20 16:07: Puncture Site Lbrach, Base Excess 9.8 H, O2 Saturation 89.9 L, ABG pH 7.34 L, ABG pCO2 66.0 H, ABG pO2 62.0 L, ABG HCO3 35.6 H, ABG Total CO2 37.6 H, Hemoglobin 0.7, Oxyhemoglobin 89.6 L, Carboxyhemoglobin 2.9 H, Total Hemoglobin 11.1 L, O2 Delivery Device Cannula, Oxygen Liter Flow 3.00 11/08/20 14:40: PT 16.7 H, INR 1.57 11/08/20 14:35: Sodium 138.1, Potassium 4.76, Chloride 98.6, Carbon Dioxide 35.1 H, Anion Gap 9.16, BUN 23.9 H, Creatinine 1.26, Estimated GFR (MDRD) 41.00, BUN/Creatinine Ratio 18.96, Glucose 171.8 H, Calcium 8.19 L, Magnesium 2.29, Total Bilirubin 0.46, AST 26.1, ALT 13.0, Alkaline Phosphatase 72.9, Troponin I < 0.012, NT-Pro-B Natriuret Pep 1590.000 H, Total Protein 6.83, Albumin 3.96, Globulin 2.87, Albumin/Globulin Ratio 1.37 11/08/20 14:35: WBC 7.32, RBC 4.02 L, Hgb 10.9 L, Hct 36.8 L, MCV 91.5, MCH 27.1, MCHC 29.6 L, RDW Coeff of Monique 17.1 H, Plt Count 228, Immature Gran % (Auto) 0.3, Neut % (Auto) 82.4 H, Lymph % (Auto) 7.4 L, Latimer % (Auto) 7.1, Eos % (Auto) 2.5, Baso % (Auto) 0.3, Neut # (Auto) 6.0, Lymph # (Auto) 0.5 L, Latimer # (Auto) 0.5, Eos # (Auto) 0.2, Baso # (Auto) 0.0, Immature Gran # (Auto) 0.0 11/08/20 14:33: Adenovirus (PCR) Not detected, B. pertussis DNA (PCR) Not detected, B.parapertussis DNA PCR Not detected, C. pneumoniae DNA (PCR) Not detected, Coronavirus OC43 (PCR) Not detected, Coronavirus HKU1 (PCR) Not detected, Coronavirus 229E (PCR) Not detected, Coronavirus NL63 (PCR) Not detected, Human Metapneumovir PCR Not detected, Influenza Type A (PCR) Not detected, Influenza B (RT-PCR) Not detected, M. pneumoniae (PCR) Not detected, Parainfluenza 1 (PCR) Not detected, Parainfluenza 2 (PCR) Not detected, Parainfluenza 3 (PCR) Not detected, Parainfluenza 4 (PCR) Not detected, RSV (PCR) Not detected, Entero/Rhino (PCR) Not detected, SARS-CoV-2 (PCR) Not detected 11/08/20 14:22: Puncture Site R rad, Base Excess 8.2 H, O2 Saturation 66.6 L, ABG pH 7.34 L, ABG pCO2 63.0 H, ABG pO2 37.0 L*, ABG HCO3 34.0 H, ABG Total CO2 35.9 H, Adam Test Y, Hemoglobin 1.3, Oxyhemoglobin 63.8 L, Carboxyhemoglobin 2.6 H, Total Hemoglobin 11.0 L, FiO2 % 21.0 ASSESSMENT: Please see below. 1. Acute respiratory failure 2. Acute COPD exacerbation 3. Dementia with behavioral disturbances 4. Atrial fibrillation 5. Diabetes Mellitus type II PLAN: 1. Coumadin 12mg today 2. Discontinue IV Lasix, start 20mg PO tomorrow Plan and coordination of the patient's care discussed in the presence of Plywood Factory Worker and nurse. SCRIBED BY: JAQUELINE LINDER Foreclosure Specialist scribed while in presence of service performed by Dr. Jacobson/Antoinette Martínez APRN on 11/09/20 ([id number])
[2020-11-09 09:59] LABS: ABG O2 HGB 92.3 % (95-100); BEecf 4.7 (-2.0-3.0); COHb 2.9 (0.5-1.5); HCO3 31.3 (21-28); MetHb 0.5 (0-1.5); TCO2 33.3 (19-24); sO2 92.6 % (94-98); tHb 10.6 g/dl (11.7-17.4)
[2020-11-09 10:02] LABS: ABG PH 7.29 (7.35-7.45)
[2020-11-09] MEDS: FLONASE NAS SCH (10:22)
--- NOTE | 2020-11-09 13:05 | PN ---
DATE OF SERVICE: 11/08/20 SUBJECTIVE: The patient was seen and examined in the emergency room. She came in with acute respiratory distress. The patient's blood gases showed acute respiratory failure with severe hypoxemia with mild respiratory acidosis. The patient's p02 was in 30s, p02 of 65. The patient was given nebs treatment, oxygen. Altagracia patient's condition improved within a couple of hours to the point that her pH was 7.34 with p02 of 62 with pc02 of 64, saturation of 92%. She has been noncompliant, hasn't been taking the medications regularly, doesn't wear her oxygen as usual to the emergency room without any oxygen. The patient was explained about her finding and having respiratory failure, advised to be transferred but she declined. She wants to stay in the hospital here at [facility] under me or she is going to go home. After a long discussion, we decided to keep her in the hospital. The patient is a full code. PHYSICAL EXAMINATION: GENERAL: The patient is oriented to time, place and person at the present time. HEENT: Head normocephalic, atraumatic. Eyes: Extraocular muscles are intact. Pupils are equal, round and reactive to light and accommodation. Ears: No lesions. Nose appeared normal. Throat: No exudate or erythema. NECK: Supple. No JVD, no carotid bruit. No lymphadenopathy or thyromegaly. LUNGS: Decreased breath sounds. Air entry has improved. Percussion note normal. Chest symmetrical. HEART: S1, S2, no S3. No murmurs. No cyanosis or clubbing. No ascites. Pulses: Dorsalis pedis and posterior tibial pulses +1 to +2 bilaterally. ABDOMEN: Soft. Nontender. Bowel sounds active. No CVA tenderness. No mass felt. EXTREMITIES: No edema. Full range of motion of all extremities, equal. NEUROLOGIC: No focal deficit. Cranial nerves II through XII are grossly intact. No headache. No double vision. SKIN: Not dry. Intact. Turgor - normal. LYMPHATIC: No palpable lymph nodes/no lymphedema. MUSCULOSKELETAL: Normal joints with no swelling. Muscle tone is normal. ASSESSMENT: 1. Cardiovascular status seems to be stable with having atrial fibrillation. The patient may have mild CHF. PLAN: 1. She will be given Lasix 20. 2. She has already been given Solu-Medrol 125 along with nebs treatment. 3. The patient is going to be hospitalized. 4. Routine telemetry orders with IV antibiotics, steroids, nebs. 5. The patient was anxious on the floor. Xanax 0.25 was given which had practically no response. The patient will be given Morphine 1-2 mg q.3-4hourly as needed. 6. The patient is very uncooperative. Prognosis is guarded. TIME SPENT: More than 30 minutes. Plan and coordination of the patient's care discussed in the presence of nurse. DEVAN
--- NOTE | 2020-11-09 13:31 | RS.PTINEVL ---
Subjective - Patient information Date of Evaluation: 11/09/20 Date of Arrival on Unit: 11/08/20 Admitted From:: Home Diagnosis: pneumonia Usual Living Arrangement: With Others Living Arrangement Comments: lives in home with a few steps to enter. Home Environment: Stairs (few), Rail Medical History: Hypertension, CVA/TIA, COPD, Dementia, Diabetes, Arthritis Medical History Comments:: CO, hearing loss, lung tumor, CAD, AFib, anxiety Surgical History: Knee Replacement (B TKR), Hysterectomy Medications: see chart Subjective Information/ Patient Comments:: pt states that she is feeling ok and would like to try to walk. pt states that she is a little dizzy with sitting up on side of bed. - Level of function Prior to this admission, the patient could do the following:: Partially Dependent Ambulation Abilities prior to this admission: pt had assist with ADLs at home. Current Level of Function: Partially Dependent Current Equipment Used at Home: OXYGEN, WALKER, DIABETIC TESTING EQUIPMENT Interventions - Objective Patient Orientation: Person, Place Current Interventions: IV's, Oxygen (3liters), Telemetry Range of Motion - ROM Right Upper Extremity AROM: WFL's Left Upper Extremity AROM: WFL's Right Lower Extremity AROM: WFL's Left Lower Extremity AROM: WFL's Muscle Strength - Muscle Strength Right Upper Extremity Strength: Mild Weakness (grossly 4-/5) Left Upper Extremity Strength: Mild Weakness (grossly 4-/5) Right Lower Extremity Strength: Mild Weakness (hip flex 4-/5, knee flex/ext 4/5, ankle DF/PF 4/5) Left Lower Extremity Strength: Mild Weakness (hip flex 4-/5, knee flex/ext 4/5, ankle DF/PF 4/5) Sensation - Sensation Right Upper Extremity Sensation: Intact/Normal Left Upper Extremity Sensation: Intact/Normal Right Lower Extremity Sensation: Intact/Normal Left Lower Extremity Sensation: Intact/Normal Palpation Palpation Findings: None/Normal Balance - Sitting Balance and Reactions Static Sitting Balance: Fair Dynamic Sitting Balance: Fair - Standing Balance and Reactions Static Standing Balance: Poor Dynamic Standing Balance: Poor Standing Equilibrium Reactions: Delayed Left, Delayed Right Standing Protective Reactions: Delayed Left, Delayed Right Functional Mobility - Bed Mobility Supine to Sit: CGA Sit to Supine: CGA, Min Assist - Transfers Sit to Stand: CGA, Min Assist Stand to Sit: CGA, Min Assist - Safety Awareness Safety Awareness: Poor CHUY INDEX SCORE: n/a Ambulation - Ambulation Assistive Device Used: Rolling Walker Orthotic/Prosthetic Device: Yes Distance: 15ft x 2 Assistance needed with Ambulation: CGA, Min Assist Quality of Ambulation: pt amb with increased lat sway. Gait Deviations: Short stride, Deviates from path Factors Affecting Ambulation: Decreased Balance, Weakness, Dizziness, Decreased Safety, Cognitive Status, Limited Endurance Treatment time - Time with patient Length of Evaluation: 21 Total treatment time: 25 Patient Education - Education Patient Education: Home Exercise Program, Activity Modification Teaching Recipient: Patient Teaching Methods: Discussion, Demonstration Comments: discussion regarding POC Assessment - Assessment Problem List:: Decreased level of function, Requires training/education, Decreased safety/Risk of falls, Weakness, Cognitive status limits abilities Rehab Potential: Good Further Therapy Indicated?: Yes Candidate for Swing Bed for Therapy Services?: pt is currently swing bed. Evaluation Complexity: HISTORY: Medium, EXAM OF BODY SYSTEMS: Medium, CLINICAL PRESENTATION: Medium, CLINICAL DECISION MAKING: Medium Patient's Goal(s): to go back home Short Term Goals GOAL #1: pt demonstrate rolling and scooting in bed independently. Goal to be met by: 11/12/20 GOAL #2: Transfer sup to/from sit SBA Goal to be met by: 11/12/20 GOAL #3: Sit to/from stand SBA Goal to be met by: 11/12/20 Progress towards Goal:: Met GOAL #4: pt amb 100ft with rwx with CGA x 1 Goal to be met by: 11/12/20 GOAL #5: Improve BLE Strength 4 to 4+/5 Goal to be met by: 11/12/20 Penitentiary Goals GOAL #1: pt transfer sup to/from sit to/from stand independently Goal to be met by: 11/14/20 GOAL #2: pt amb functional distances with rwx with SBA Goal to be met by: 11/14/20 GOAL #3: pt ascend/descend 3 steps with 1 handrail Goal to be met by: 11/14/20 Plan Plan of Care: Therapeutic EX, Therapeutic Activity Other:: gait training Frequency of Treatment: 1-2 X day, as tolerated Duration of Treatment: 5 days Anticipated Discharge Destination: Home Treatment Diagnosis (ICD 10 Codes): impaired balance R 26.81. gait difficulty R 26.2. weakness M62.81 Has the Physician been added for Co-signature?: Yes
[2020-11-09] MEDS ORDERED: COUMADIN PO SCH ×2 (17:00)
[2020-11-09] MEDS: MEVACOR PO SCH (17:21)
[2020-11-09] MEDS: ASTELIN 0.1% NAS SCH (20:17)
[2020-11-09] MEDS ORDERED: MORPHINE 4 MG/ML SYRINGE IVP ONE (23:30)
[2020-11-10 05:24] LABS: BASOPHILS % (AUTO) 0.1 % (0.0-3.0); HEMATOCRIT 34.7 % (37.0-47.0); HEMOGLOBIN 10.3 g/dl (12.0-16.0); IMMATURE GRANULOCYTE # (AUTO) 0.1 (0.0-1.0); LYMPHOCYTES # (AUTO) 0.3 K/uL (0.60-3.4); LYMPHOCYTES % (AUTO) 2.4 (10.0-50.0); MEAN CORPUSCULAR HGB CONC 29.7 (31.8-35.4); MEAN CORPUSCULAR VOLUME 91.1 fl (81.0-99.0); MONOCYTES # (AUTO) 0.3 K/uL (0.4-2.0); MONOCYTES % (AUTO) 3.3 (0-10); NEUTROPHILS # (AUTO) 9.8 K/ul (2.0-6.9); NEUTROPHILS % (AUTO) 93.2 % (42.2-75.2); PLATELET COUNT 221 10^3/uL (140-440); RDW COEFFICIENT OF VARIATION 16.6 % (11.6-14.8); RED BLOOD COUNT 3.81 10^6/ul (4.20-5.40); WHITE BLOOD COUNT 10.46 K/ul (4.6-10.2)
[2020-11-10] MEDS: SOLU-MEDROL 125 MG IVP SCH ×2 (05:24→13:13)
[2020-11-10] MEDS ORDERED: LASIX TAB PO PRN (06:00)
[2020-11-10] MEDS: DUONEB NEB SCH ×3 (06:06→14:34)
[2020-11-10] MEDS: PULMICORT 1 MG/2 ML NEB SCH (06:06)
[2020-11-10 06:10] LABS: ALANINE AMINOTRANSFERASE 16.2 U/L (0-35); ALBUMIN 4.03 g/dL (3.5-5.0); ASPARTATE AMINO TRANSFERASE 19.9 U/L (14-36); BILIRUBIN,TOTAL 0.29 mg/dL (0.2-1.3); BLOOD UREA NITROGEN 43.9 mg/dL (7-17); CALCIUM 8.5 mg/dL (8.4-10.2); CARBON DIOXIDE 31.9 mmol/L (22-30.0); CHLORIDE 91.2 mmol/L (98-107); CREATININE 1.55 mg/dL (0.60-1.30); GLUCOSE 387.2 mg/dL (74-106); POTASSIUM 4.8 mmol/L (3.5-5.1); TOTAL PROTEIN 6.69 g/dL (6.3-8.2)
[2020-11-10] MEDS: HUMULIN R SUBCUT PRN ×3 (06:10→17:20)
[2020-11-10 06:11] LABS: PROTHROMBIN TIME 17.6 SEC (9.3-11.0)
[2020-11-10] MEDS: PRILOSEC PO SCH ×2 (06:11→17:17)
[2020-11-10] MEDS ORDERED: COUMADIN PO ONE ×2 (08:59→09:30)
--- NOTE | 2020-11-10 09:10 | HP ---
DATE OF SERVICE: 11/08/20 HISTORY OF PRESENT ILLNESS: 79-year-old white female who presented to the emergency room with shortness of breath and cough. PAST MEDICAL HISTORY: Right upper lobe mass, sees Dr. Palmer and Dr. Burch COPD, oxygen dependent History of respiratory failure Atrial fibrillation on Coumadin Chronic anemia Dementia with behavioral disturbances Anxiety Diabetes mellitus type 2 Obesity Chronic kidney disease, Stage 2 History of diverticulosis Degenerative disk disease of the L-spine Dyslipidemia Macular degeneration Osteoarthritis PAST SURGICAL HISTORY: Heart [place] [address] Knowles Bilateral total knee replacement Colonoscopy [place] [address] Dugan Status post hysterectomy Last echo was in May of 2020, ejection fraction of 45% REVIEW OF SYSTEMS: CONSTITUTIONAL: No night sweats. No fatigue, malaise, lethargy. No fever or chills. HEENT: Eyes: No visual changes. No eye pain. No eye discharge. ENT: No runny nose. No epistaxis. No sinus pain. No sore throat. No odynophagia. No ear pain. No congestion. RESPIRATORY: Positive for cough, shortness of breath. No hemoptysis. CARDIOVASCULAR: No angina symptoms. No CHF symptoms. No atypical chest pain for CAD. No palpitations. No PND. No orthopnea. GASTROINTESTINAL: No abdominal pain. No nausea or vomiting. No diarrhea or constipation. No hematemesis. No hematochezia. GENITOURINARY: No urgency. No frequency. No dysuria. No hematuria. No obstructive symptoms. No discharge. No pain. No significant abnormal bleeding. MUSCULOSKELETAL: No musculoskeletal pain. No joint swelling. No arthritis. NEUROLOGICAL: Positive for confusion. No headache. No neck pain. No syncope. No seizures. No dizziness. PSYCHIATRIC: Not anxious. No depression. No suicidal thoughts. No homicidal thoughts. SKIN: No rash. No lesions. No wounds. ENDOCRINE: No unexplained weight loss. No weight gain. HEMATOLOGIC/LYMPHATIC: No anemia. No purpura. No petechiae. No prolonged or excessive bleeding. No palpable lymph nodes. PERSONAL/FAMILY/SOCIAL HISTORY: Urine is normal. ABGs on room air 02 sat 66, pH 7.34, pc02 63, p02 37, bicarb 34, total c02 35. Respiratory panel by PCR is normal. INR 1.57. Sodium 138, potassium 4.7, BUN 23, creatinine 1.26, AST 26, ALT 13. NT-Pro-BNP 1590, troponin less than 0.01. Hemoglobin 10.9, hematocrit 36.8, platelets 228. Chest x-ray shows small right pleural effusion, bibasilar opacities likely representing atelectasis. Mild interstitial edema. MEDICATIONS: Furosemide 40 mg p.o. q.d.a.c. Fenofibrate 54 mg p.o. daily Donepezil 10 mg p.o. daily Namenda 10 mg p.o. b.i.d. Lovastatin 80 mg p.o. q.p.m. Norvasc 10 mg p.o. daily Omeprazole 20 mg p.o. b.i.d. Sertraline 50 mg p.o. q.day Vitamin C, S-Jk-Nikgnc-Lutein-Zeaxan 1 tab p.o. bedtime Ferrous Sulfate 325 mg p.o. daily Gabapentin 300 mg p.o. daily Benazepril 40 mg p.o. daily Insulin Glargine U-300 conc (Toujeo Solostar U-300 insulin) 50 unit subcut bedtime Loratidine 10 mg p.o. daily Fluticasone (Flonase) two spray intranasal daily Azelastine 137 mcg two spray intranasal bedtime Albuterol Sulfate one puff INH q.6-8hr p.r.n. Warfarin 7 mg p.o. q.p.m. ALLERGIES: NKDA PHYSICAL EXAMINATION: VITAL SIGNS: Temperature 97.7, heart rate 101, respirations 18, blood pressure 112/88, pulse ox 72% increased to 91% on 3L. HEENT: Head normocephalic, atraumatic. Eyes: Extraocular muscles are intact. Pupils are equal, round and reactive to light and accommodation. Ears: No lesions. Nose appeared normal. Throat: No exudate or erythema. NECK: Supple. No JVD, no carotid bruit. No lymphadenopathy or thyromegaly. LUNGS: Diminished breath sounds with bilateral inspiratory and expiratory wheezing. Percussion note normal. Chest symmetrical. HEART: S1, S2, no S3. No murmur. No cyanosis or clubbing. No ascites. Pulses: Dorsalis pedis and posterior tibial pulses +1 to +2 bilaterally. ABDOMEN: Soft. Nontender. Bowel sounds active. No CVA tenderness. No mass felt. EXTREMITIES: No edema. Full range of motion of all extremities, equal. NEUROLOGIC: No focal deficit. Cranial nerves II through XII are grossly intact. No headache, no double vision or headache. SKIN: Not dry. Intact. Turgor - normal. LYMPHATIC: No palpable lymph nodes/no lymphedema. MUSCULOSKELETAL: Normal joints with no swelling. Muscle tone is normal. ASSESSMENT: 1. Acute respiratory failure. 2. Acute COPD exacerbation. 3. Shortness of breath. 4. Diabetes mellitus type 2. 5. Atrial fibrillation. 6. History of CHF. PLAN: 1. We will admit. 2. Routine telemetry orders. 3. CBC, CMP. 4. INR daily. 5. Rocephin 1 gm IV daily. 6. UA. 7. Oxygen at 3L/NC. 8. Solu-Medrol 125 IV q.8. 9. Pulmicort nebulizer 1 mg b.i.d. 10. Albuterol neb t.i.d. MARIANNE. 11. Lasix 40 mg IV now. 12. Continue all home medications. 13. Sliding scale insulin coverage due to diabetes. 14. Will follow closely. TIME SPENT: More than 70 minutes. MTDD
[2020-11-10] MEDS: NEURONTIN PO SCH (10:45)
[2020-11-10] MEDS: XANAX PO SCH ×3 (10:45→17:17)
[2020-11-10] MEDS: NAMENDA PO SCH (10:45)
[2020-11-10] MEDS: FERROUS SULFATE PO SCH (10:45)
[2020-11-10] MEDS: NORVASC PO SCH (10:45)
[2020-11-10] MEDS: LOTENSIN PO SCH (10:45)
[2020-11-10] MEDS: ARICEPT PO SCH (10:46)
[2020-11-10] MEDS: TRIGLIDE PO SCH (10:46)
[2020-11-10] MEDS: CLARITIN PO SCH (10:46)
[2020-11-10] MEDS: ZOLOFT PO SCH (10:46)
[2020-11-10] MEDS: ROCEPHIN 1 GM/50 ML D5W 1 GM/50 ML BAG IV SCH (10:51)
[2020-11-10] MEDS: FLONASE NAS SCH (10:52)
[2020-11-10] MEDS: PROAIR HFA (SINGLE PATIENT USE) IH PRN (10:53)
--- NOTE | 2020-11-10 11:20 | PCM.PROG ---
Attending Provider: ATTENDING PROVIDER: Dr. FRENCH JACOBSON DATE OF SERVICE: 11/10/20 SUBJECTIVE: This 79 year old /WHITE F was hospitalized 11/08/20 with acute respiratory failure. The patient's condition improved slowly. Also thought to have mild left ventricular failure along with noncompliance and doesn't wear oxygen and take her medication as scribed. The patient was given Morphine Sulfate at 11:30 for restlessness. Oxygen saturations have been 92-95% on 2.5 liters. Yesterday oxygen was reduced to 2.5 liters because of respiratory acidosis. She is oriented to person and place. REVIEW OF SYSTEMS: CONSTITUTIONAL: No night sweats. Feels sleepy this morning. No fever or chills. HEENT: Eyes: No visual changes. No eye pain. No eye discharge. ENT: No runny nose. No epistaxis. No sinus pain. No odynophagia. No congestion. RESPIRATORY: No cough, no congestion. No hemoptysis. Mild shortness of breath. CARDIOVASCULAR: No angina symptoms. No CHF symptoms. No atypical chest pain for CAD. No palpitations. No orthopnea.. GASTROINTESTINAL: No abdominal pain. No nausea or vomiting. No diarrhea or constipation. No hematemesis. No hematochezia. GENITOURINARY: No urgency. No frequency. No dysuria. No hematuria. No obstructive symptoms. No discharge. No pain. No significant abnormal bleeding. MUSCULOSKELETAL: No musculoskeletal pain; no joint swelling. NEUROLOGICAL: Awake, alert, oriented to place and person. No headache. No neck pain. No syncope. No seizures. No dizziness. PSYCHIATRIC: Not anxious. No depression. No suicidal thoughts. No homicidal thoughts. SKIN: No rash. No lesions. No wounds. ENDOCRINE: No unexplained weight loss. No weight gain. HEMATOLOGIC/LYMPHATIC: No anemia. No purpura. No petechiae. No prolonged or excessive bleeding. No palpable lymph nodes. PHYSICAL EXAMINATION: GENERAL: The patient is awake, alert and oriented, lying in bed in no distress. VITAL SIGNS: Temperature 97.8 F, Pulse 94, Respiratory Rate 18, BP 127/76, Pulse Ox 94% HEENT: Head normocephalic, atraumatic. Eyes: Extraocular muscles are intact. Pupils are equal, round and reactive to light and accommodation. Ears: No lesions. Nose appeared normal. Throat: No exudate or erythema. NECK: Supple. No JVD, no carotid bruit. No lymphadenopathy or thyromegaly. LUNGS: Good air entry with mild harsh breath sounds on expiration. Clear to auscultation. Percussion note normal. Chest symmetrical. HEART: S1, S2, no S3. No murmurs. No cyanosis or clubbing. No ascites. Pulses: Dorsalis pedis and posterior tibial pulses +1 to +2 both sides. ABDOMEN: Soft. Non-tender. Bowel sounds active. No CVA tenderness. No mass felt. EXTREMITIES: No edema. Full range of motion of all extremities, equal. NEUROLOGIC: No focal deficit. Cranial nerves II through XII are grossly intact. No headache, no double vision or headache. SKIN: Warm and dry. Intact. Turgor-normal. LYMPHATIC: No palpable lymph nodes/no lymphedema. MUSCULOSKELETAL: Normal joints with no swelling. Muscle tone is normal. LAB REVIEW: 11/10/20 05:00 11/10/20 05:00 11/10/20 05:00: Sodium 131.0 L, Potassium 4.80, Chloride 91.2 L, Carbon Dioxide 31.9 H, Anion Gap 12.70, BUN 43.9 H, Creatinine 1.55 H, Estimated GFR (MDRD) 32.00, BUN/Creatinine Ratio 28.32, Glucose 387.2 H, Calcium 8.50, Total Bilirubin 0.29, AST 19.9, ALT 16.2, Alkaline Phosphatase 64.0, Total Protein 6.69, Albumin 4.03, Globulin 2.66, Albumin/Globulin Ratio 1.51 11/10/20 05:00: PT 17.6 H, INR 1.65 11/10/20 05:00: WBC 10.46 H, RBC 3.81 L, Hgb 10.3 L, Hct 34.7 L, MCV 91.1, MCH 27.0, MCHC 29.7 L, RDW Coeff of Monique 16.6 H, Plt Count 221, Immature Gran % (Auto) 1.0, Neut % (Auto) 93.2 H, Lymph % (Auto) 2.4 L, [place] % (Auto) 3.3, Eos % (Auto) 0.0, Baso % (Auto) 0.1, Neut # (Auto) 9.8 H, Lymph # (Auto) 0.3 L, [place] # (Auto) 0.3 L, Eos # (Auto) 0.0, Baso # (Auto) 0.0, Immature Gran # (Auto) 0.1 11/09/20 09:48: Puncture Site Lbrach, Base Excess 4.7 H, O2 Saturation 92.6 L, ABG pH 7.29 L*, ABG pCO2 65.0 H, ABG pO2 73.0 L, ABG HCO3 31.3 H, ABG Total CO2 33.3 H, Adam Test +, Hemoglobin 0.5, Oxyhemoglobin 92.3 L, Carboxyhemoglobin 2.9 H, Total Hemoglobin 10.6 L, O2 Delivery Device Cannula, Oxygen Liter Flow 3.00, FiO2 % 32.0 ASSESSMENT: Please see below. 1. Acute respiratory failure seems to be under control 2. Renal insufficiency 3. Chronic anemia 4. Chronic lung disease 5. History of CHF 6. History of atrial fibrillation 7. INR is still 1.65 8. The patient is noncompliant PLAN: 1. Will be given extra dose 5mg today of Coumadin Plan and coordination of the patient's care discussed in the presence of Dental Amalgam Processor and nurse. CONDITION: Stable. PROGNOSIS: Guarded SCRIBED BY: JAQUELINE LINDER Switching Clerk scribed while in presence of service performed by Dr. FRENCH JACOBSON on 11/10/20 ([id number])
[2020-11-10 14:14] VITALS: BP 112/74; TEMP 97.6
[2020-11-10] MEDS: MEVACOR PO SCH (17:17)
[2020-11-10] MEDS ORDERED: LANTUS SUBCUT SCH ×2 (21:00)
[2020-11-11] MEDS ORDERED: LASIX TAB PO SCH (06:30)
--- NOTE | 2020-11-13 09:51 | CM.DICTOOL ---
ADMISSION: 11/08/20 16:51 FINAL DIAGNOSIS ACUTE RESPIRATORY FAILURE ACUTE BRONCHITIS WITH COPD EXACERBATION CHF HX: DILATED CARDIOMYOPATHY PNEUMONIA, RIGHT UPPER LOBE LUNG MASS, RIGHT UPPER LOBE (CT 07/17/20, SEES DR. FRANCO/DR. VINCENT/DR. 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 THOMAS BILATERAL TKR, DR. Mima JACOBSON COLONOSCOPY, 2019 DR. MEJIA HYSTERECTOMY ECHOCARDIOGRAM: 2020 BORDERLINE LVH WITH MARKEDLY ENLARGED LEFT ATRIAL CAVITY LVEF 45% LAST VITALS Temp Pulse Resp BP Pulse Ox 97.6 F 87 20 112/74 96 11/10/20 14:00 11/10/20 14:00 11/10/20 14:00 11/10/20 14:00 11/10/20 14:00 TAKE THESE MEDICATIONS AT HOME Albuterol Sulfate (Albuterol Sulfate 8.5 Gm Inhaler (Single Patient Use)) 2 puff IH Q6H PRN PRN Reason: FOR SOA AND WHEEZING Last Admin: 11/10/20 10:53 Dose: 2 puff Amlodipine Besylate (Amlodipine Besylate 5 Mg Tablet) [address] [facility] -- ( CHANGED) Last Admin: 11/10/20 10:45 Dose: 10 mg Azelastine HCl (Azelastine Hcl 30 Ml Nasal [place]) 2 spray LA BEDTIME [facility] Last Admin: 11/09/20 20:17 Dose: 2 spray Benazepril HCl (Benazepril Hcl 10 Mg Tablet) [address] [facility] Budesonide (Budesonide 0.5 Mg/2 Ml Vial.Neb) 0.5 mg NEB BID [facility] -- ( NEW) Last Admin: 11/10/20 06:06 Dose: 1 mg Donepezil HCl (Donepezil Hcl 10 Mg Tablet) 10 mg PO DAILY [facility] Last Admin: 11/10/20 10:46 Dose: 10 mg Fenofibrate (Fenofibrate 54 Mg Tablet) [address] [facility] Last Admin: 11/10/20 10:46 Dose: 54 mg Ferrous Sulfate (Ferrous Sulfate 324 Mg Tablet.) [address] [facility] Last Admin: 11/10/20 10:45 Dose: 324 mg Fluticasone Propionate (Fluticasone Propionate 16 Gm Nasal [place]) [address] [facility] Last Admin: 11/10/20 10:52 Dose: 2 spray Furosemide (Furosemide 20 Mg Tablet) [address] [facility] Gabapentin (Gabapentin 300 Mg Capsule) [address] [facility] Last Admin: 11/10/20 10:45 Dose: 300 mg Insulin Glargine (Insulin Glargine,Hum.Rec.Anlog 100 Units/Ml) [address] [facility] Loratadine (Loratadine 10 Mg Tablet) [address] [facility] Last Admin: 11/10/20 10:46 Dose: 10 mg Lovastatin (Lovastatin 20 Mg Tablet) [address] [facility] Last Admin: 11/09/20 17:21 Dose: 80 mg Memantine (Memantine Hcl 10 Mg Tablet) [address] [facility] Last Admin: 11/10/20 10:45 Dose: 10 mg Omeprazole (Omeprazole 20 Mg Capsule.) [address] [facility] Last Admin: 11/10/20 06:11 Dose: 20 mg Sertraline HCl (Sertraline Hcl 50 Mg Tablet) [address] [facility] Last Admin: 11/10/20 10:46 Dose: 50 mg Warfarin Sodium (Warfarin Sodium 3 Mg Tablet) [address] [facility] OMNICEF 300 MG PO BID X 5 DAYS -- ( NEW) PREDNISONE ( START 11/11/2020 IN THE AM) 20 MG PO DAILY X 5 DAYS, THEN 10 MG PO DAILY X 5 DAYS WITH FOOD AND THEN STOP --( NEW) ALBUTEROL 2.5 MG/3 ML ( 0.083%) 1 VIAL PER NEBULIZER QID --( NEW) ALLERGIES No Known Allergies Allergy (Verified 11/08/20 14:23) DISCONTINUED MEDICATIONS COUMADIN 7 MG PO DAILY NEW PRESCRIPTIONS: NORVASC (Amlodipine Besylate 5 Mg Tablet) [address] [facility] -- ( CHANGED) PULMICORT(Budesonide 0.5 Mg/2 Ml Vial.Neb) 0.[address] [facility] -- ( NEW) COUMADIN(Warfarin Sodium 3 Mg Tablet) [address] [facility] -- ( CHANGED) OMNICEF 300 MG PO BID X 5 DAYS -- ( NEW) PREDNISONE ( START 11/11/2020 IN THE AM) 20 MG PO DAILY X 5 DAYS, THEN 10 MG PO DAILY X 5 DAYS WITH FOOD AND THEN STOP --( NEW) ALBUTEROL 2.5 MG/3 ML ( 0.083%) 1 VIAL PER NEBULIZER QID --( NEW) LAB REVIEW: 11/10/20 05:00 11/10/20 05:00 11/10/20 05:00: Sodium 131.0 L, Potassium 4.80, Chloride 91.2 L, Carbon Dioxide 31.9 H, Anion Gap 12.70, BUN 43.9 H, Creatinine 1.55 H, Estimated GFR (MDRD) 32.00, BUN/Creatinine Ratio 28.32, Glucose 387.2 H, Calcium 8.50, Total Bilirubin 0.29, AST 19.9, ALT 16.2, Alkaline Phosphatase 64.0, Total Protein 6.69, Albumin 4.03, Globulin 2.66, Albumin/Globulin Ratio 1.51 11/10/20 05:00: PT 17.6 H, INR 1.65 11/10/20 05:00: WBC 10.46 H, RBC 3.81 L, Hgb 10.3 L, Hct 34.7 L, MCV 91.1, MCH 27.0, MCHC 29.7 L, RDW Coeff of Monique 16.6 H, Plt Count 221, Immature Gran % (Auto) 1.0, Neut % (Auto) 93.2 H, Lymph % (Auto) 2.4 L, [place] % (Auto) 3.3, Eos % (Auto) 0.0, Baso % (Auto) 0.1, Neut # (Auto) 9.8 H, Lymph # (Auto) 0.3 L, [place] # (Auto) 0.3 L, Eos # (Auto) 0.0, Baso # (Auto) 0.0, Immature Gran # (Auto) 0.1 PLAN: DISCHARGE: HOME TODAY, [facility] TO START NEXT WEEK: SN, PT AND OT TO EVAL AND TREAT PHONE# [phone] PT/INR TO BE DONE IN MD OFFICE ON 11/14/2020 APPOINTMENT ACTIVITY: UP WITH WALKER AND SUPERVISION. FREQUENT REST PERIODS NEEDS 24 HOUR SUPERVISION WITH ACTIVITY, MEDICATIONS AND OXYGEN USE FALL PRECAUTIONS BLEEDING PRECAUTIONS DIET: HEART HEALTHY/ CONSISTENT CARBOHYDRATE OXYGEN: CHANGED TO 2.5 LITERS A MINUTE PER NASAL CANULA FOLLOW UP: DR. JACOBSON/ JAMARI CARRILLO APRN/ NATE RAUSCH APRN TO SEE IN THE OFFICE ON 11/14/2020 @ 145 PM CODE STATUS: FULL CODE MRS SNYDER IS ALERT AND ORIENTED TO PLACE AND PERSON AND CERTAIN DETAILS AND HAS INCREASED PERIODS OF CONFUSION AT TIMES. INSTRUCTED MRS SNYDER AND HER FAMILY THAT SHE NEEDED 24/7 SUPERVISION. MRS SNYDER DID NOT AGREE. SHE STILL SOUNDS CONGESTED BUT IN NO DISTRESS. DOES GET OUT OF BREATH WITH WALKING AT TIMES. OXYGEN @ 2.5 L/M PER N/C AND PULSE OX STAYING ABOVE 90%. WITH INITIAL PT EVAL SHE WALKED 15 FEET X 2 WITH WALKER AND CGA X 1. SKIN INTACT WITH A SMALL CRUSTED SKIN TEAR TO HER RT FOREARM. SHE FEEDS SELF AND EATING 75-100% OF MEALS. DRINKS ADEQUATE FLUIDS. SHE IS CONTINENT OF BOWEL AND BLADDER EXCEPT SHE DOES HAVE SOME DRIBBLING AND WEARS DEPENDS. LAST BM11/08/2020. SHE GETS HER MEDS FROM [facility] IN [place]. HER GRANDAUGHTER AND OTHER MEMBERS OF HER FAMILY HELP HER, BUT NOT CONSISTENTLY, DUE TO AT TIMES MRS. SNYDER INSIST ON DOING THINGS HERSELF. WILL GO HOME WITH NEBULIZERS , PO ANTIBIOTICS AND PREDNISONE AND HOME HEALTH SN, PT AND OT. TALKED WITH GABRIELA JOSUE, SIGNIFICANT OTHER ALONG WITH GRISELDA OJSUE, SISTER REGARDING CHANGES. MD JAMARI SRIVASTAVA APRN ALYCE HANNAN, APRN
--- NOTE | 2020-11-13 11:02 | PN ---
DATE OF SERVICE: 11/09/20 SUBJECTIVE: The patient was seen and examined with the nurse practitioner. The patient's overall respiratory status is stable with arterial blood gases showing p02 more than pc02 decrease the amount of oxygen given to 2.5L as the patient's pH has dropped to 7.29. She had a lot of problems last night with restlessness. She has dementia, worsened from change of place and hyoxemia on admission which was very severe. The patient was seen and examined with the nurse practitioner. Condition stable. Prognosis guarded. TIME SPENT: More than 30 minutes. Plan and coordination of the patient's care discussed in the presence of nurse. DEVAN
--- NOTE | 2020-11-13 12:52 | PN ---
DATE OF SERVICE: 11/10/20 SUBJECTIVE: Echo was done in May of 2020 which showed LV cavity 6 cm which is enlarged. LV ejection fraction was 45% with enlarged LA cavity of 6.1, enlarged RV cavity 4.0. The patient has dilated cardiomyopathy with low ejection fraction along with severe chronic lung disease with diabetes mellitus that is poorly controlled because of the patient's noncompliance. She is noncompliant of diet, medications and recommendations. She has declined to go to the skilled nursing. Family is aware of the patient's dementia and problems that she has with her medications, forgetfulness and noncompliance. TIME SPENT: More than 30 minutes. Plan and coordination of the patient's care discussed in the presence of nurse. DEVAN
--- NOTE | 2020-11-13 13:46 | DS ---
DATE OF SERVICE: 11/10/20 CODE STATUS: FULL CODE FINAL DIAGNOSIS: 1. ACUTE RESPIRATORY FAILURE 2. ACUTE BRONCHITIS WITH COPD EXACERBATION 3. CHF HX: 4. DILATED CARDIOMYOPATHY 5. PNEUMONIA, RIGHT UPPER LOBE 6. LUNG MASS, RIGHT UPPER LOBE (CT 07/17/20, SEES DR. FRANCO//) 7. COPD, OXYGEN USE 8. ACUTE RESPIRATORY FAILURE 9. ATRIAL FIBRILLATION 10. CHRONIC ANEMIA 11. DEMENTIA WITH BEHAVIOR DISTURBANCES 12. ANXIETY 13. ASSISTED ANTI-COAGULANT USE (COUMADIN) 14. DIABETES MELLITUS, TYPE 2 15. CHRONIC KIDNEY DISEASE, STAGE 2 16. DIVERTICULOSIS 17. DEGENERATIVE DISC DISEASE 18. DYSLIPIDEMIA 19. MACULAR DEGENERATION 20. OSTEOARTHRITIS 21. NON-COMPLIANT WITH LIFESTYLE, MEDICATIONS, DIET AND FOLLOW-UP SURGICAL HISTORY: 22. BACK SURGERY 23. HEART CATH, 2014 DR. THOMAS 24. BILATERAL TKR, DR. Mima JACOBSON 25. COLONOSCOPY, 2019 DR. MEJIA 26. HYSTERECTOMY 27. ECHOCARDIOGRAM: 2020, BORDERLINE LVH WITH MARKEDLY ENLARGED LEFT ATRIAL CAVITY, LVEF 45% LAST VITALS Temp Pulse Resp BP Pulse Ox 97.6 F 87 20 112/74 96 11/10/20 14:00 11/10/20 14:00 11/10/20 14:00 11/10/20 14:00 11/10/20 14:00 DISCHARGE INSTRUCTIONS: 1. DISCHARGE: HOME TODAY, [facility] TO START NEXT WEEK: SN, PT AND OT TO EVAL AND TREAT, PHONE# [phone] PT/INR TO BE DONE IN MD OFFICE ON 11/14/2020 APPOINTMENT. 2. MD FOLLOW UP: DR. JACOBSON/JAMARI CARRILLO APRN/ NATE RAUSCH APRN TO SEE IN THE OFFICE ON 11/14/2020 @ 145 PM. 3. OXYGEN: CHANGED TO 2.5 LITERS A MINUTE PER NASAL CANULA. MEDICATIONS AT DISCHARGE: Albuterol Sulfate (Albuterol Sulfate 8.5 Gm Inhaler (Single Patient Use)) 2 puff IH Q6H PRN PRN Reason: FOR SOA AND WHEEZING Last Admin: 11/10/20 10:53 Dose: 2 puff Amlodipine Besylate (Amlodipine Besylate 5 Mg Tablet) 5 mg PO DAILY [facility] -- ( CHANGED) Last Admin: 11/10/20 10:45 Dose: 10 mg Azelastine HCl (Azelastine Hcl 30 Ml Nasal [place]) 2 spray LA BEDTIME [facility] Last Admin: 11/09/20 20:17 Dose: 2 spray Benazepril HCl (Benazepril Hcl 10 Mg Tablet) 40 mg PO DAILY [facility] Budesonide (Budesonide 0.5 Mg/2 Ml Vial.Neb) 0.5 mg NEB BID [facility] -- ( NEW) Last Admin: 11/10/20 06:06 Dose: 1 mg Donepezil HCl (Donepezil Hcl 10 Mg Tablet) 10 mg PO DAILY [facility] Last Admin: 11/10/20 10:46 Dose: 10 mg Fenofibrate (Fenofibrate 54 Mg Tablet) 54 mg PO DAILY [facility] Last Admin: 11/10/20 10:46 Dose: 54 mg Ferrous Sulfate (Ferrous Sulfate 324 Mg Tablet.) 324 mg PO DAILY [facility] Last Admin: 11/10/20 10:45 Dose: 324 mg Fluticasone Propionate (Fluticasone Propionate 16 Gm Nasal [place]) 2 spray LA DAILY [facility] Last Admin: 11/10/20 10:52 Dose: 2 spray Furosemide (Furosemide 20 Mg Tablet) 20 mg PO QDAC [facility] Gabapentin (Gabapentin 300 Mg Capsule) 300 mg PO DAILY [facility] Last Admin: 11/10/20 10:45 Dose: 300 mg Insulin Glargine (Insulin Glargine,Hum.Rec.Anlog 100 Units/Ml) 50 unit SUBCUT BEDTIME [facility] Loratadine (Loratadine 10 Mg Tablet) 10 mg PO DAILY [facility] Last Admin: 11/10/20 10:46 Dose: 10 mg Lovastatin (Lovastatin 20 Mg Tablet) 80 mg PO QPM [facility] Last Admin: 11/09/20 17:21 Dose: 80 mg Memantine (Memantine Hcl 10 Mg Tablet) 10 mg PO BID [facility] Last Admin: 11/10/20 10:45 Dose: 10 mg Omeprazole (Omeprazole 20 Mg Capsule.) 20 mg PO BIDAC [facility] Last Admin: 11/10/20 06:11 Dose: 20 mg Sertraline HCl (Sertraline Hcl 50 Mg Tablet) 50 mg PO DAILY [facility] Last Admin: 11/10/20 10:46 Dose: 50 mg Warfarin Sodium (Warfarin Sodium 3 Mg Tablet) 6 mg PO QPM [facility] OMNICEF 300 MG PO BID X 5 DAYS -- ( NEW) PREDNISONE ( START 11/11/2020 IN THE AM) 20 MG PO DAILY X 5 DAYS, THEN 10 MG PO DAILY X 5 DAYS WITH FOOD AND THEN STOP --( NEW) ALBUTEROL 2.5 MG/3 ML ( 0.083%) 1 VIAL PER NEBULIZER QID --( NEW) NEW PRESCRIPTIONS: NORVASC (Amlodipine Besylate 5 Mg Tablet) 5 mg PO DAILY [facility] -- ( CHANGED) PULMICORT(Budesonide 0.5 Mg/2 Ml Vial.Neb) 0.5 mg NEB BID [facility] -- ( NEW) COUMADIN(Warfarin Sodium 3 Mg Tablet) 6 mg PO QPM [facility] -- ( CHANGED) OMNICEF 300 MG PO BID X 5 DAYS -- ( NEW) PREDNISONE ( START 11/11/2020 IN THE AM) 20 MG PO DAILY X 5 DAYS, THEN 10 MG PO DAILY X 5 DAYS WITH FOOD AND THEN STOP --( NEW) ALBUTEROL 2.5 MG/3 ML ( 0.083%) 1 VIAL PER NEBULIZER QID --( NEW) DISCONTINUED MEDICATIONS: COUMADIN 7 MG PO DAILY DIET INSTRUCTIONS: HEART HEALTHY/CONSISTENT CARBOHYDRATE ACTIVITY: UP WITH WALKER AND SUPERVISION. FREQUENT REST PERIODS, NEEDS 24 HOUR SUPERVISION WITH ACTIVITY, MEDICATIONS AND OXYGEN USE, FALL PRECAUTIONS, BLEEDING PRECAUTIONS HOSPITAL COURSE: The patient was hospitalized on 11/08/20 with respiratory failure. The patient's oxygen saturation was 66% with p02 of 35. She was in acute respiratory failure with respiratory acidosis. The patient was treated in the emergency room with steroids, nebs treatment. She was given oxygen up to 4L. The patient's condition improved within a couple of hours. When I saw her in the emergency room she was feeling much better. She was not in much distress at all. She was hospitalized and restarted on all of her medications including diuretics. She was given 20 mg IV Lasix but no symptoms of CHF. Continued on Solu-Medrol q.8, antibiotics as mentioned above, restarted on all her medications. At time of discharge, the patient was feeling a lot better. She had no distress at all. She was eating normally. The patient had a couple of nights in the hospital, very restless and confused at times. She has dementia. She lives by herself with a friend who is also sick. Granddaughter takes care of both of them. She is not getting her medications on a regular basis because she forgets to take them, wear her oxygen all the time. She is noncompliant, very difficult to deal with, unreasonable. The patient declined any referral to any pulmonary physician. She was explained about x-ray findings. She doesn't want anything to be done. She has dilated cardiomyopathy with LV ejection fraction 45%. She was strongly advised to take all of her medications on a regular basis. She was put on treatment at home along with home health care to check her out with her medications, lungs, saturations and INR to be done. The patient's prognosis is poor. The effects of Prednisone discussed with her including avascular necrosis of the bones. She was discharged on Prednisone 20 mg to be taken 5 days, 10 mg for 5 days, nebs with Albuterol and Pulmicort to be taken at home with Omnicef to be taken for 5 days. LAB REVIEW: 11/10/20 05:00: Sodium 131.0 L, Potassium 4.80, Chloride 91.2 L, Carbon Dioxide 31.9 H, Anion Gap 12.70, BUN 43.9 H, Creatinine 1.55 H, Estimated GFR (MDRD) 32.00, BUN/Creatinine Ratio 28.32, Glucose 387.2 H, Calcium 8.50, Total Bilirubin 0.29, AST 19.9, ALT 16.2, Alkaline Phosphatase 64.0, Total Protein 6.69, Albumin 4.03, Globulin 2.66, Albumin/Globulin Ratio 1.51 11/10/20 05:00: PT 17.6 H, INR 1.65 11/10/20 05:00: WBC 10.46 H, RBC 3.81 L, Hgb 10.3 L, Hct 34.7 L, MCV 91.1, MCH 27.0, MCHC 29.7 L, RDW Coeff of Monique 16.6 H, Plt Count 221, Immature Gran % (Auto) 1.0, Neut % (Auto) 93.2 H, Lymph % (Auto) 2.4 L, [place] % (Auto) 3.3, Eos % (Auto) 0.0, Baso % (Auto) 0.1, Neut # (Auto) 9.8 H, Lymph # (Auto) 0.3 L, [place] # (Auto) 0.3 L, Eos # (Auto) 0.0, Baso # (Auto) 0.0, Immature Gran # (Auto) 0.1 TIME SPENT: More than 60 minutes. MTDD
--- NOTE | 2020-11-13 13:49 | PN ---
BILLING 11/08/20 ADMISSION DAY LEVEL 5 11/09/20 INTERMEDIATE 11/10/20 DISCHARGE MTDD
== END 2020-11-10 17:30 | disposition home or self-care (01) | DRG 189 ==
LOC: ED 14:10 → MEDSURG A 16:51
PROVIDERS: ADMIT Internal Medicine; ATTEND Internal Medicine
DX: E11.9 Type 2 diabetes mellitus without complications; Z20.828 Contact with and (suspected) exposure to other viral communicable diseases; F03.91 Unspecified dementia, unspecified severity, with behavioral disturbance; I48.91 Unspecified atrial fibrillation; J44.1 Chronic obstructive pulmonary disease with (acute) exacerbation; Z91.19 Patient's noncompliance with other medical treatment and regimen; D64.9 Anemia, unspecified; R53.1 Weakness; I42.9 Cardiomyopathy, unspecified; J96.00 Acute respiratory failure, unspecified whether with hypoxia or hypercapnia; I50.9 Heart failure, unspecified; R06.00 Dyspnea, unspecified; N28.9 Disorder of kidney and ureter, unspecified; R05 Cough; R06.02 Shortness of breath

== ENCOUNTER 2020-12-14 11:06 | Inpatient (IN) ==
--- NOTE | 2020-12-14 12:24 | ED.PDOC ---
General ED Provider: Dr. CARLENE CHUN Chief Complaint: Diabetes Stated Complaint: low blood sugar at [place] after breakfast -sent in fo revaluation from [place] Time Seen by Provider: 12/14/20 12:20 Mode of Arrival: Ambulance Information Source: [facility] Exam Limitations: No limitations Primary Care Provider: FRENCH JACOBSON Referred to ED by: Other Seen Within Last 72 Hours for Same Complaint By: In-Patient Facility Nursing and Triage Documentation Reviewed and Agree: Yes Does patient meet sepsis criteria?: No System Inflammatory Response Syndrome: Not Applicable Sepsis Protocol: For patient's 13 years and over: Temp is 96.8 and below OR 101 and greater Pulse >90 BPM Resp >20/minute Acutely Altered Mental Status Are patient's symptoms suggestive of a new infection, such as: -Pneumonia -Skin, Soft Tissue -Endocarditis -UTI -Bone, Joint Infection -Implantable Device -Acute Abdominal Infection -Wound Infection -Meningitis -Blood Stream Catheter Infection -Unknown Endocrine Complaint Exam Diabetic Complication Complaint/Exam Onset/Duration: 2 hr Symptoms Are: Resolved Timing: Intermittent Initial Severity: Moderate Current Severity: None Character: Alert Aggravating: Reports Diet change Alleviating: Reports Food Associated Signs and Symptoms: Reports Decreased LOC, Polydipsia, Polyuria and Polyphagia Related History: Reports Similar episode Cardiac Risk Factors: Reports None CVA Risk Factors: Reports DM and Hypertension Serious Bacterial Infection Risk Factors: Reports None Related Surgical History: Reports None Acetone on Breath: No Dry Mucous Membranes: Yes Meningeal Signs: No Focal Weakness: None Gait: Unsteady Nystagmus Present: No Gag Reflex Present: Yes Finger to Nose: Normal Romberg Test Positive: No Babinski Sign: Negative Right Heel to Toe Normal: Yes Differential Diagnoses: Hypoglycemia Review of Systems Review Of Systems Constitutional: Reports Malaise and Weakness Eyes: Reports No symptoms Ears, Nose, Mouth, Throat: Reports No symptoms Respiratory: Reports Cough, Short of air and Wheezing Cardiac: Reports No symptoms GI: Reports No symptoms : Reports No symptoms Musculoskeletal: Reports No symptoms Skin: Reports No symptoms Neurological: Reports Anxiety Endocrine: Reports Increased thirst and Increased urine Hematologic/Lymphatic: Reports No symptoms All Other Systems: Reviewed and Negative [facility] Medical History Anxiety Atrial fibrillation CAD (coronary artery disease) Chronic anemia Chronic kidney disease, stage 2 (mild) COPD (chronic obstructive pulmonary disease) CVA (cerebral vascular accident) Dementia with behavioral disturbance Depression Diabetes mellitus, type 2 Diverticulosis Dyslipidemia GERD (gastroesophageal reflux disease) Hypertension Lung tumor (~2020) Macular degeneration Myocardial infarction Osteoarthritis Sensorineural hearing loss (SNHL) of both ears Family History BROTHER Arthritis SISTER COPD (chronic obstructive pulmonary disease) FATHER CVA (cerebral vascular accident) Mother Hypertension Mother Diabetes SISTER Diabetes Social History Smoking and tobacco status: Former smoker Alcohol intake: never Number of children: 2 Number of grandchildren: 3 Highest education level completed: Associate degree: academic program Pets and animals: Yes Sexually active: No Do you think of yourself as: straight/heterosexual Current gender identity: female Current diet type/program: diabetic Well-balanced diet: rarely Caffeine: Yes Water heater temperature set < 120 degrees: Yes Working smoke detector in home: Yes Fire extinguisher in home: Yes Carbon monoxide detector in home: Yes Firearms in home: Yes Firearms unloaded and locked: Yes Surgical History History of bilateral knee replacement History of cardiac catheterization History of colonoscopy History of hysterectomy History of lumbar fusion Female Reproductive History Menstrual Hx Hysterectomy: Yes Hx Tubal Ligation: No Physical Exam Physical Exam Appearance: Reports Ill-appearing and Obese Ill-appearing: Mild Pain Distress: Not Applicable Eyes: Reports ANTONINO, EOMI, Conjunctiva clear, Conjunctiva pale and Right pupil size (PERL_A) ENT: Reports Ears normal, Oropharynx normal and TMs Occluded Neck: Supple Respiratory: Reports Airway patent, Breath sounds diminished and Wheezes Cardiovascular: Reports RRR and No murmur GI/: Reports Soft, Nontender and No masses Musculoskeletal: Reports Normal strength, ROM intact, No edema and No calf tende rness Skin: Reports Warm, Dry and Normal color Neurological: Reports Sensation intact, Motor intact, Reflexes intact, Cranial nerves intact, Alert and Oriented Psychiatric: Reports Affect appropriate and Mood appropriate Interpretation Radiology Interpretation Exam Interpreted: Portable CXR (Stable bibasilar atelectasis and/or pneumonia with small bilateral pleural effusions, right greater than left. #2. Cardiomegaly with pulmonary vascular congestion.(Chronic changes -note on previous imaging studies)) Critical Care Note Critical Care Note Total Critical Care Time (mins): 60 Course Course Hematology/Chemistry: 12/27/20 05:09 12/27/20 05:09 Orders, Labs, Meds: Lab Review 12/14/20 12/14/20 12/14/20 12:35 12:35 12:35 WBC 7.74 RBC 3.95 L Hgb 10.7 L Hct 38.1 MCV 96.5 MCH 27.1 MCHC 28.1 L RDW Coeff of Monique 16.9 H Plt Count 205 Immature Gran % (Auto) 0.3 Neut % (Auto) 84.7 H Lymph % (Auto) 5.0 L [place] % (Auto) 9.2 Eos % (Auto) 0.5 Baso % (Auto) 0.3 Neut # (Auto) 6.6 Lymph # (Auto) 0.4 L [place] # (Auto) 0.7 Eos # (Auto) 0.0 Baso # (Auto) 0.0 Immature Gran # (Auto) 0.0 Hypochromasia 3+ Poikilocytosis 2+ Anisocytosis 1+ Puncture Site Base Excess O2 Saturation ABG pH ABG pCO2 ABG pO2 ABG HCO3 ABG Total CO2 Adam Test Hemoglobin Oxyhemoglobin Carboxyhemoglobin Total Hemoglobin O2 Delivery Device Oxygen Liter Flow FiO2 % Sodium 138.2 Potassium 4.56 Chloride 94.7 L Carbon Dioxide 39.4 H Anion Gap 8.66 BUN 21.0 H Creatinine 1.15 Estimated GFR (MDRD) 46.00 BUN/Creatinine Ratio 18.26 Glucose 128.7 H Calcium 8.16 L Total Bilirubin 0.37 AST 24.0 ALT 18.8 Alkaline Phosphatase 58.0 NT-Pro-B Natriuret Pep 1310.000 H Total Protein 6.30 Albumin 3.75 Globulin 2.55 Albumin/Globulin Ratio 1.47 Urine Color Urine Clarity Urine pH Ur Specific [place] Urine Protein Urine Glucose (UA) Urine Ketones Urine Blood Urine Nitrite Urine Bilirubin Urine Urobilinogen Ur Leukocyte Esterase Adenovirus (PCR) B. pertussis DNA (PCR) B.parapertussis DNA PCR C. pneumoniae DNA (PCR) Coronavirus OC43 (PCR) Coronavirus HKU1 (PCR) Coronavirus 229E (PCR) Coronavirus NL63 (PCR) Human Metapneumovir PCR Influenza Type A (PCR) Influenza B (RT-PCR) M. pneumoniae (PCR) Parainfluenza 1 (PCR) Parainfluenza 2 (PCR) Parainfluenza 3 (PCR) Parainfluenza 4 (PCR) RSV (PCR) Entero/Rhino (PCR) SARS-CoV-2 (PCR) 12/14/20 12/14/20 12/14/20 14:01 14:13 14:44 WBC RBC Hgb Hct MCV MCH MCHC RDW Coeff of Monique Plt Count Immature Gran % (Auto) Neut % (Auto) Lymph % (Auto) [place] % (Auto) Eos % (Auto) Baso % (Auto) Neut # (Auto) Lymph # (Auto) [place] # (Auto) Eos # (Auto) Baso # (Auto) Immature Gran # (Auto) Hypochromasia Poikilocytosis Anisocytosis Puncture Site R rad Base Excess 14.2 H O2 Saturation 83.2 L ABG pH 7.28 L* ABG pCO2 87.0 H ABG pO2 54.0 L* ABG HCO3 40.9 H ABG Total CO2 43.6 H Adam Test + Hemoglobin 0.7 Oxyhemoglobin 86.3 L Carboxyhemoglobin 3.2 H Total Hemoglobin 11.2 L O2 Delivery Device Nc Oxygen Liter Flow 3.00 FiO2 % Sodium Potassium Chloride Carbon Dioxide Anion Gap BUN Creatinine Estimated GFR (MDRD) BUN/Creatinine Ratio Glucose Calcium Total Bilirubin AST ALT Alkaline Phosphatase NT-Pro-B Natriuret Pep Total Protein Albumin Globulin Albumin/Globulin Ratio Urine Color Yellow Urine Clarity Clear Urine pH 5.0 Ur Specific [place] 1.020 Urine Protein Negative Urine Glucose (UA) Negative Urine Ketones Negative Urine Blood Negative Urine Nitrite Negative Urine Bilirubin Negative Urine Urobilinogen 0.2 Ur Leukocyte Esterase Negative Adenovirus (PCR) Not detected B. pertussis DNA (PCR) Not detected B.parapertussis DNA PCR Not detected C. pneumoniae DNA (PCR) Not detected Coronavirus OC43 (PCR) Not detected Coronavirus HKU1 (PCR) Not detected Coronavirus 229E (PCR) Not detected Coronavirus NL63 (PCR) Not detected Human Metapneumovir PCR Not detected Influenza Type A (PCR) Not detected Influenza B (RT-PCR) Not detected M. pneumoniae (PCR) Not detected Parainfluenza 1 (PCR) Not detected Parainfluenza 2 (PCR) Not detected Parainfluenza 3 (PCR) Not detected Parainfluenza 4 (PCR) Not detected RSV (PCR) Not detected Entero/Rhino (PCR) Not detected SARS-CoV-2 (PCR) Not detected 12/14/20 15:21 WBC RBC Hgb Hct MCV MCH MCHC RDW Coeff of Monique Plt Count Immature Gran % (Auto) Neut % (Auto) Lymph % (Auto) [place] % (Auto) Eos % (Auto) Baso % (Auto) Neut # (Auto) Lymph # (Auto) [place] # (Auto) Eos # (Auto) Baso # (Auto) Immature Gran # (Auto) Hypochromasia Poikilocytosis Anisocytosis Puncture Site R rad Base Excess 14.8 H O2 Saturation 83.6 L ABG pH 7.29 L* ABG pCO2 86.0 H ABG pO2 54.0 L* ABG HCO3 41.4 H ABG Total CO2 44.0 H Adam Test Y Hemoglobin 1.1 Oxyhemoglobin 87.3 L Carboxyhemoglobin 2.6 H Total Hemoglobin 11.0 L O2 Delivery Device Vapotherm Oxygen Liter Flow FiO2 % 36.0 Sodium Potassium Chloride Carbon Dioxide Anion Gap BUN Creatinine Estimated GFR (MDRD) BUN/Creatinine Ratio Glucose Calcium Total Bilirubin AST ALT Alkaline Phosphatase NT-Pro-B Natriuret Pep Total Protein Albumin Globulin Albumin/Globulin Ratio Urine Color Urine Clarity Urine pH Ur Specific [place] Urine Protein Urine Glucose (UA) Urine Ketones Urine Blood Urine Nitrite Urine Bilirubin Urine Urobilinogen Ur Leukocyte Esterase Adenovirus (PCR) B. pertussis DNA (PCR) B.parapertussis DNA PCR C. pneumoniae DNA (PCR) Coronavirus OC43 (PCR) Coronavirus HKU1 (PCR) Coronavirus 229E (PCR) Coronavirus NL63 (PCR) Human Metapneumovir PCR Influenza Type A (PCR) Influenza B (RT-PCR) M. pneumoniae (PCR) Parainfluenza 1 (PCR) Parainfluenza 2 (PCR) Parainfluenza 3 (PCR) Parainfluenza 4 (PCR) RSV (PCR) Entero/Rhino (PCR) SARS-CoV-2 (PCR) Orders Category Date Time Status ADMIT PATIENT INPATIENT .TO [facility] (MONITORED BED) ADMISSION 12/14/20 15:52 Completed ABG DRAW REQUEST DAILY@0600 CARDIO 12/15/20 06:00 Completed ABG DRAW REQUEST DAILY@0600 CARDIO 12/16/20 06:00 Completed ABG DRAW REQUEST Stat CARDIO 12/14/20 14:01 Completed ABG DRAW REQUEST Stat CARDIO 12/14/20 15:13 Completed EKG-(ED ONLY) Stat CARDIO 12/14/20 14:01 Completed OXYGEN Routine CARDIO 12/14/20 14:01 Completed VAPOTHERM Routine CARDIO 12/14/20 14:57 Completed ACTIVITY .Complete BR CARE 12/14/20 15:59 Completed BLOOD GLUCOSE MONITORING 0630,1100,1700,2100 CARE 12/14/20 16:00 Completed CASE MANAGEMENT CONSULT ONCE CARE 12/14/20 15:58 Completed GIVE HS SNACK 2100 CARE 12/14/20 15:59 Completed INTAKE & OUTPUT Q8HR CARE 12/14/20 15:59 Completed TELEMETRY MONITORING TELE CARE 12/14/20 15:52 Completed ADA 1800 AAMIR. DIET DIETARY 12/14/20 Dinner Completed HS SNACK DIETARY 12/14/20 Dinner Completed ABG COOX DAILY@0600 LAB 12/15/20 04:15 Completed ABG COOX DAILY@0600 LAB 12/16/20 05:30 Completed ABG COOX Stat LAB 12/14/20 14:01 Completed ARTERIAL BLOOD GAS [ABG COOX] Stat LAB 12/14/20 15:21 Completed BLOOD CULTURE Routine LAB 12/14/20 16:40 Completed CBC W/ AUTO DIFF DAILY@0600 LAB 12/15/20 04:49 Completed CBC W/ AUTO DIFF DAILY@0600 LAB 12/16/20 04:59 Completed CBC W/ AUTO DIFF Stat LAB 12/14/20 12:35 Completed CMP [COMPREHENSIVE METABOLIC PANEL] Stat LAB 12/14/20 12:35 Completed COMPREHENSIVE METABOLIC PANEL DAILY@0600 LAB 12/15/20 04:49 Completed COMPREHENSIVE METABOLIC PANEL DAILY@0600 LAB 12/16/20 04:59 Completed CREATINE KINASE Q8H LAB 12/14/20 22:02 Completed CREATINE KINASE Q8H LAB 12/15/20 04:49 Completed RBC MORPHOLOGY Stat LAB 12/14/20 12:35 Completed RESPIRATORY PANEL 2.1 (PCR) Stat LAB 12/14/20 14:44 Completed TROPONIN I Q8H LAB 12/14/20 22:02 Completed TROPONIN I Q8H LAB 12/15/20 04:49 Completed UA [URINALYSIS C & S IF INDICATED] Stat LAB 12/14/20 14:13 Completed Albuterol Sulfate 0.083% Neb [Albuterol 0.083% Neb] MEDS 12/14/20 17:00 Discontinued 2.5 mg NEB QID Amlodipine Besylate [Norvasc] MEDS 12/15/20 09:00 Discontinued 5 mg PO DAILY Enoxaparin Sodium [Lovenox] MEDS 12/14/20 16:00 Discontinued 40 mg SUBCUT DAILY Furosemide [Lasix] MEDS 12/14/20 16:30 Discontinued 20 mg IVP QDAC Furosemide [Lasix] MEDS 12/14/20 16:30 Discontinued 20 mg IVP QDAC Methylprednisolone Sod Succ/Pf [Solu-Medrol 40 mg] MEDS 12/14/20 16:30 Discontinued 40 mg IVP Q8HR Ondansetron HCl/Pf [Zofran 4 mg/2 ml] MEDS 12/14/20 15:58 Discontinued 4 mg IVP Q6H PRN RESUSCITATION STATUS Routine OTHERS 12/14/20 15:58 Completed CHEST, 1V AP ONLY Stat RADS 12/14/20 12:24 Completed Medications Discontinued Medications Generic Name Dose Route Start Last Admin Trade Name Freq PRN Reason Stop Dose Admin Acetaminophen 650 mg 12/14/20 17:39 12/25/20 17:23 Acetaminophen 325 Mg Tablet PO 650 mg Q4H PRN Administration Headache Albuterol Sulfate 2.5 mg 12/14/20 17:00 12/14/20 18:31 Albuterol Sulfate 0.083% Vial.Neb NEB Not Given QID MARIANNE Albuterol Sulfate 2 puff 12/19/20 14:34 12/20/20 16:34 Albuterol Sulfate 8.5 Gm Inhaler (Single Patient Use) IH 2 puff Q4H PRN Administration Bronchodialation Albuterol Sulfate 2 puff 12/25/20 14:00 12/27/20 04:35 Albuterol Sulfate 8.5 Gm Inhaler (Single Patient Use) IH 2 puff RTQID MARIANNE Administration Albuterol/Ipratropium 3 ml 12/14/20 20:00 12/25/20 10:30 Ipratropium/Albuterol Vial.Neb NEB 3 ml RTQID MARIANNE Administration Amlodipine Besylate 5 mg 12/15/20 09:00 12/26/20 10:25 Amlodipine Besylate 5 Mg Tablet PO 5 mg DAILY MARIANNE Administration Atropine Sulfate 0.5 mg 12/14/20 17:39 Atropine Sulfate Inj 1 Mg/10 Ml Disp.Syrin IVP ONCE PRN Symptomatic Bradycardia Azelastine HCl 2 spray 12/14/20 21:00 12/26/20 20:31 Azelastine Hcl 30 Ml Nasal [place] 2 spray BID MARIANNE Administration Benazepril HCl 40 mg 12/15/20 09:00 12/26/20 10:25 Benazepril Hcl 10 Mg Tablet PO 40 mg DAILY MARIANNE Administration Budesonide 1 mg 12/14/20 18:00 12/25/20 05:32 Budesonide 1 Mg/2 Ml Vial.Neb NEB 1 mg RTBID MARIANNE Administration Budesonide/Formoterol Fumarate 2 puff 12/25/20 12:30 12/26/20 10:43 Budesonide/Formoterol Fumarate 160/4.5 Mcg Inhaler IH Not Given 1000,1999 MARIANNE Budesonide/Formoterol Fumarate 2 puff 12/26/20 09:00 12/26/20 20:30 Budesonide/Formoterol Fumarate 160/4.5 Mcg Inhaler IH 2 puff BID MARIANNE Administration Cephalexin 500 mg 12/20/20 12:00 12/23/20 08:47 Cephalexin 500 Mg Capsule PO 12/23/20 11:59 500 mg BID MARIANNE Administration Cholecalciferol 5,000 unit 12/25/20 12:30 12/26/20 10:24 Cholecalciferol (Vitamin D3) 1,000 Unit (25 Mcg) Tablet PO 5,000 unit DAILY MARIANNE Administration Dexamethasone Sodium Phosphate 4 mg 12/21/20 09:24 12/21/20 09:57 Dexamethasone Sod Phos 4 Mg/Ml Inj IM 12/21/20 09:25 4 mg ONCE ONE Administration Dexamethasone Sodium Phosphate 6 mg 12/25/20 12:30 12/25/20 13:12 Dexamethasone Sod Phos 10 Mg/Ml Inj IM 6 mg DAILY MARIANNE Administration Dexamethasone Sodium Phosphate 6 mg 12/26/20 09:00 12/26/20 20:19 Dexamethasone Sod Phos 10 Mg/Ml Inj IM 6 mg BID MARIANNE Administration Digoxin 250 mcg 12/25/20 13:49 12/25/20 14:00 Digoxin Inj 500 Mcg/2 Ml Amp IVP 12/25/20 13:50 250 mcg ONCE STA Administration Digoxin 250 mcg 12/25/20 14:55 12/25/20 14:56 Digoxin Inj 500 Mcg/2 Ml Amp IVP 12/25/20 14:56 250 mcg ONCE ONE Administration Diltiazem HCl 90 mg 12/25/20 13:53 12/25/20 14:12 Diltiazem Hcl 60 Mg Tablet PO 12/25/20 13:54 90 mg ONCE ONE Administration Donepezil HCl 10 mg 12/15/20 09:00 12/26/20 10:25 Donepezil Hcl 10 Mg Tablet PO 10 mg DAILY MARIANNE Administration Donepezil HCl 10 mg 12/15/20 09:00 Donepezil Hcl 10 Mg Tablet PO DAILY MARIANNE Enoxaparin Sodium 40 mg 12/14/20 16:00 12/16/20 08:27 Enoxaparin Sodium 40 Mg/0.4 Ml Syr SUBCUT 12/17/20 00:01 40 mg DAILY MARIANNE Administration Famotidine 40 mg 12/25/20 17:00 12/27/20 07:49 Famotidine 20 Mg Tablet PO Not Given BIDAC MARIANNE Fenofibrate 54 mg 12/15/20 09:00 12/26/20 10:26 Fenofibrate 54 Mg Tablet PO 54 mg DAILY MARIANNE Administration Ferrous Sulfate 324 mg 12/15/20 09:00 12/26/20 10:26 Ferrous Sulfate 324 Mg Tablet.Dr PO 324 mg DAILY MARIANNE Administration Furosemide 20 mg 12/14/20 16:30 Furosemide Inj 20 Mg/2 Ml Vial IVP QDAC MARIANNE Furosemide 20 mg 12/14/20 16:30 12/19/20 06:39 Furosemide Inj 20 Mg/2 Ml Vial IVP 20 mg QDAC MARIANNE Administration Furosemide 40 mg 12/14/20 16:40 12/14/20 18:41 Furosemide Inj 40 Mg/4 Ml Vial IVP 12/14/20 16:41 40 mg ONCE ONE Administration Furosemide 40 mg 12/20/20 06:30 12/26/20 08:07 Furosemide 40 Mg Tablet PO 40 mg QDAC MARIANNE Administration Furosemide 20 mg 12/22/20 08:37 12/22/20 09:58 Furosemide Inj 20 Mg/2 Ml Vial IVP 12/22/20 08:38 20 mg ONCE STA Administration Furosemide 40 mg 12/23/20 17:30 12/23/20 18:07 Furosemide Inj 40 Mg/4 Ml Vial IVP 12/23/20 17:31 40 mg ONCE ONE Administration Gabapentin 300 mg 12/15/20 09:00 12/26/20 10:25 Gabapentin 300 Mg Capsule PO 300 mg DAILY MARIANNE Administration Hydrocortisone Sodium Succinate 125 mg 12/14/20 20:30 12/17/20 05:52 Hydrocortisone Sod Succ/Pf 250 Mg/2 Ml Vial IVP 125 mg Q6HR MARIANNE Administration Hydroxyzine HCl 25 mg 12/18/20 01:08 12/18/20 01:17 Hydroxyzine Hcl 25 Mg/Ml Vial IM 12/18/20 01:09 25 mg ONCE STA Administration Hydroxyzine Pamoate 25 mg 12/19/20 23:12 12/19/20 23:31 Hydroxyzine Pamoate 25 Mg Capsule PO 12/19/20 23:13 25 mg ONCE ONE Administration Hydroxyzine Pamoate 25 mg 12/20/20 19:48 12/25/20 13:15 Hydroxyzine Pamoate 25 Mg Capsule PO 25 mg TID PRN Administration Anxiety CEFTRIAXONE/D5W 1 GM PREMIX 1 gm in 50 mls @ 75 mls/hr 12/14/20 18:00 12/14/20 18:26 Rocephin 1 Gm/50 Ml D5w IV 12/17/20 17:59 75 mls/hr DAILY MARIANNE Administration CEFTRIAXONE/D5W 1 GM PREMIX 1 gm in 50 mls @ 75 mls/hr 12/15/20 21:00 12/18/20 20:41 Rocephin 1 Gm/50 Ml D5w IV 12/22/20 17:59 75 mls/hr BEDTIME MARIANNE Administration CEFTRIAXONE/D5W 1 GM PREMIX 1 gm in 50 mls @ 75 mls/hr 12/24/20 09:00 Rocephin 1 Gm/50 Ml D5w IV 12/27/20 08:59 DAILY MARIANNE CEFTRIAXONE/D5W 1 GM PREMIX 1 gm in 50 mls @ 75 mls/hr 12/23/20 17:50 12/23/20 18:16 Rocephin 1 Gm/50 Ml D5w IV 12/23/20 18:29 75 mls/hr ONCE ONE Administration Levofloxacin/Dextrose 500 mg in 100 mls @ 100 mls/hr 12/24/20 12:30 Levaquin 500 Mg/100 Ml D5w IV 12/27/20 12:29 Q24H MARIANNE Aztreonam 1 gm/ Sodium 50 mls @ 75 mls/hr 12/24/20 12:30 12/25/20 11:28 Chloride IV 12/27/20 12:29 Not Given Q12HR MARIANNE Levofloxacin/Dextrose 500 mg in 100 mls @ 100 mls/hr 12/24/20 12:30 12/25/20 10:05 Levaquin 500 Mg/100 Ml D5w IV 12/27/20 12:29 Not Given DAILY MARIANNE Levofloxacin/Dextrose 750 mg in 150 mls @ 100 mls/hr 12/25/20 09:30 12/25/20 10:02 Levaquin 750 Mg/150 Ml D5w IV 12/28/20 09:29 100 mls/hr DAILY MARIANNE Administration Dextrose/Sodium Chloride 1,000 mls @ 100 mls/hr 12/25/20 14:30 12/26/20 00:49 Dextrose 5%-1/2ns Iv Solution IV 100 mls/hr .Q10H MARIANNE Administration Levofloxacin/Dextrose 750 mg in 150 mls @ 100 mls/hr 12/27/20 09:00 Levaquin 750 Mg/150 Ml D5w IV 12/30/20 08:59 Q48H MARIANNE Sodium Chloride 1,000 mls @ 100 mls/hr 12/26/20 09:00 12/27/20 07:54 Sodium Chloride IV 100 mls/hr .Q10H MARIANNE Administration REMDESIVIR SOLUTION 200 mg/ 290 mls @ 145 mls/hr 12/26/20 12:00 12/26/20 12:06 Sodium Chloride IV 12/26/20 13:59 145 mls/hr ONCE ONE Administration Insulin Human Regular 0 unit 12/14/20 19:18 12/27/20 06:22 Insulin Regular, Human 100 Unit/Ml (3ml) Vial SUBCUT 3 unit PRN PRN Administration Hyperglycemia Protocol Ipratropium [place] 2 puff 12/25/20 14:00 12/27/20 04:35 Ipratropium [place] 12.9 Gm Hfa Inhaler Per Puff With Spacer IH 2 puff RTQID MARIANNE Administration Loratadine 10 mg 12/15/20 09:00 12/26/20 10:25 Loratadine 10 Mg Tablet PO 10 mg DAILY MARIANNE Administration Lorazepam 1 mg 12/14/20 18:43 12/17/20 21:53 Lorazepam 1 Mg Tablet PO 1 mg BID PRN Administration Anxiety Lorazepam 1 mg 12/18/20 09:00 12/26/20 20:19 Lorazepam 1 Mg Tablet PO 1 mg TID MARIANNE Administration Lovastatin 80 mg 12/15/20 17:00 12/25/20 17:50 Lovastatin 20 Mg Tablet PO Not Given QPM MARIANNE Memantine 10 mg 12/14/20 21:00 12/26/20 20:19 Memantine Hcl 10 Mg Tablet PO 10 mg BID MARIANNE Administration Methylprednisolone Sodium Succinate 40 mg 12/14/20 16:30 12/14/20 18:42 Methylprednisolone Sod Succ/Pf 40 Mg/Ml Vial IVP Not Given Q8HR MARIANNE Morphine Sulfate 2 mg 12/27/20 03:17 12/27/20 03:25 Morphine Sulfate 2 Mg/Ml Syringe IVP 2 mg Q2H PRN Administration SOA/pain Nitroglycerin 0.4 mg 12/14/20 17:39 Nitroglycerin 0.4 Mg Tab.Subl SL Q5MIN X 3 DOSES PRN Chest Pain Omeprazole 20 mg 12/14/20 21:00 12/14/20 21:04 Omeprazole 20 Mg Capsule. PO 20 mg BID MARIANNE Administration Omeprazole 20 mg 12/15/20 09:00 12/27/20 07:49 Omeprazole 20 Mg Capsule. PO Not Given BIDAC MARIANNE Ondansetron HCl 4 mg 12/14/20 15:58 Ondansetron Hcl/Pf 4 Mg/2 Ml Sdv IVP Q6H PRN Nausea / Vomiting Phytonadione 1 mg 12/27/20 06:57 Phytonadione Inj 10 Mg/Ml Amp SUBCUT 12/27/20 06:58 ONCE STA Phytonadione 1 mg 12/27/20 08:27 12/27/20 08:23 Phytonadione Inj 10 Mg/Ml Amp SUBCUT 12/27/20 08:28 1 mg ONCE STA Administration Prednisone 10 mg 12/17/20 17:00 12/26/20 10:42 Prednisone 10 Mg Tablet PO Not Given BIDWM MARIANNE Quetiapine Fumarate 25 mg 12/18/20 21:00 12/26/20 20:19 Quetiapine Fumarate 25 Mg Tablet PO 25 mg BEDTIME MARIANNE Administration Scopolamine HBr 1 patch 12/27/20 03:17 12/27/20 03:25 Scopolamine Hydrobromide 1.5 Mg Patch.Td72 TD 12/27/20 03:18 1 patch ONCE STA Administration Sertraline HCl 50 mg 12/14/20 19:30 12/17/20 09:17 Sertraline Hcl 50 Mg Tablet PO 50 mg DAILY MARIANNE Administration Sertraline HCl 100 mg 12/18/20 09:00 12/26/20 10:24 Sertraline Hcl 50 Mg Tablet PO 100 mg DAILY MARIANNE Administration Sodium Bicarbonate 50 meq 12/27/20 06:58 12/27/20 08:23 Sodium Bicarbonate 50 Meq/50 Ml Disp.Syrin IVP 12/27/20 06:59 50 meq ONCE STA Administration Sodium Chloride 1 syr 12/14/20 21:00 12/20/20 21:01 0.9% Sodium Chloride 10 Ml Disp.Syrin IVF Not Given Q8HR [facility] Sodium Chloride 1 syr 12/24/20 05:00 12/27/20 04:17 0.9% Sodium Chloride 10 Ml Disp.Syrin IVF Not Given Q8HR [facility] Warfarin Sodium 6 mg 12/14/20 19:30 12/19/20 16:22 Warfarin Sodium 3 Mg Tablet PO 6 mg QPM MARIANNE Administration Warfarin Sodium 6 mg 12/15/20 17:00 12/15/20 17:14 Warfarin Sodium 3 Mg Tablet PO 12/15/20 17:01 6 mg ONCE ONE Administration Warfarin Sodium 6 mg 12/17/20 17:00 12/17/20 16:25 Warfarin Sodium 3 Mg Tablet PO 12/17/20 17:01 6 mg ONCE ONE Administration Warfarin Sodium 6 mg 12/18/20 17:00 12/18/20 17:31 Warfarin Sodium 3 Mg Tablet PO 12/18/20 17:01 6 mg ONCE ONE Administration Warfarin Sodium 6 mg 12/19/20 17:00 12/19/20 16:25 Warfarin Sodium 3 Mg Tablet PO 12/19/20 18:00 6 mg 1700 MARIANNE Administration Warfarin Sodium 12 mg 12/20/20 17:00 12/20/20 16:33 Warfarin Sodium 3 Mg Tablet PO 12/20/20 19:00 12 mg QPM MARIANNE Administration Warfarin Sodium 6 mg 12/21/20 17:00 12/26/20 17:30 Warfarin Sodium 3 Mg Tablet PO 6 mg QPM MARIANNE Administration Warfarin Sodium 6 mg 12/21/20 17:00 12/21/20 17:28 Warfarin Sodium 3 Mg Tablet PO 12/21/20 17:01 6 mg ONCE ONE Administration Warfarin Sodium 6 mg 12/22/20 17:00 12/22/20 17:26 Warfarin Sodium 3 Mg Tablet PO 12/22/20 17:01 6 mg ONCE ONE Administration Warfarin Sodium 6 mg 12/25/20 17:00 12/25/20 17:17 Warfarin Sodium 3 Mg Tablet PO 12/25/20 17:01 6 mg ONCE ONE Administration Warfarin Sodium 6 mg 12/26/20 17:00 12/26/20 17:29 Warfarin Sodium 3 Mg Tablet PO 12/26/20 17:01 6 mg ONCE ONE Administration Zinc Sulfate 220 mg 12/25/20 12:30 12/26/20 10:25 Zinc Sulfate 220 Mg Capsule PO 220 mg DAILY MARIANNE Administration Vital Signs: Temp Pulse Resp BP Pulse Ox 12/14/20 14:53 90 L 12/14/20 14:50 98 12/14/20 11:08 97.3 F L 99 H 20 130/71 89 L Discharge Plan Discharge Patient Disposition: ADMITTED INPATIENT Discharge Problem: Acute exacerbation of chronic obstructive pulmonary disease ED Provider: CARLENE CHUN Condition: Serious Physician Progress Note: []
[2020-12-14 12:40] LABS: BASOPHILS % (AUTO) 0.3 % (0.0-3.0); EOSINOPHILS % (AUTO) 0.5 % (0.0-7.0); HEMATOCRIT 38.1 % (37.0-47.0); HEMOGLOBIN 10.7 g/dl (12.0-16.0); IMMATURE GRANULOCYTE % (AUTO) 0.3 % (0.0-5.0); LYMPHOCYTES # (AUTO) 0.4 K/uL (0.60-3.4); MEAN CORPUSCULAR HEMOGLOBIN 27.1 pg (27.0-31.0); MEAN CORPUSCULAR HGB CONC 28.1 (31.8-35.4); MEAN CORPUSCULAR VOLUME 96.5 fl (81.0-99.0); MONOCYTES # (AUTO) 0.7 K/uL (0.4-2.0); MONOCYTES % (AUTO) 9.2 (0-10); NEUTROPHILS # (AUTO) 6.6 K/ul (2.0-6.9); NEUTROPHILS % (AUTO) 84.7 % (42.2-75.2); RDW COEFFICIENT OF VARIATION 16.9 % (11.6-14.8); RED BLOOD COUNT 3.95 10^6/ul (4.20-5.40); WHITE BLOOD COUNT 7.74 K/ul (4.6-10.2)
[2020-12-14 12:51] LABS: ALANINE AMINOTRANSFERASE 18.8 U/L (0-35); ALBUMIN 3.75 g/dL (3.5-5.0); BILIRUBIN,TOTAL 0.37 mg/dL (0.2-1.3); CALCIUM 8.16 mg/dL (8.4-10.2); CARBON DIOXIDE 39.4 mmol/L (22-30.0); CHLORIDE 94.7 mmol/L (98-107); CREATININE 1.15 mg/dL (0.60-1.30); GLUCOSE 128.7 mg/dL (74-106); POTASSIUM 4.56 mmol/L (3.5-5.1); SODIUM 138.2 mmol/L (134.5-145); TOTAL PROTEIN 6.3 g/dL (6.3-8.2)
--- NOTE | 2020-12-14 12:59 | DI ---
EXAM: One view chest. HISTORY: Short of breath. COMPARISON: 12/05/2020 chest x-ray. FINDINGS: There are stable opacities in both lung bases with blunting of the costophrenic angles, ri ght greater than left. The cardiac silhouette is enlarged. There is mild central pulmonary edema identified. No acute abno rmality involving the osseous structures. IMPRESSION: #1. Stable bibasilar atelectasis and/or pneumonia with small bilateral pleural effusions, right grea ter than left. #2. Cardiomegaly with pulmonary vascular congestion.
[2020-12-14 13:08] LABS: PLATELET COUNT 205 10^3/uL (140-440)
[2020-12-14 13:09] LABS: ANISOCYTOSIS 1+ (NOT PRESENT); HYPOCHROMASIA 3+ (NOT PRESENT); POIKILOCYTOSIS 2+ (NOT PRESENT)
[2020-12-14 14:54] LABS: BILIRUBIN,URINE Negative (NEGATIVE); CLARITY,URINE Clear (CLEAR); COLOR,URINE Yellow (YELLOW); GLUCOSE, URINE (UA) Negative (NEGATIVE); KETONES,URINE Negative (NEGATIVE); LEUKOCYTE ESTERASE ,URINE Negative (NEGATIVE); NITRITE,URINE Negative (NEGATIVE); PROTEIN,URINE Negative (NEGATIVE); URINE, BLOOD Negative (NEGATIVE); UROBILINOGEN,URINE 0.2 (0.2)
[2020-12-14 15:16] LABS: ABG PH 7.28 (7.35-7.45)
[2020-12-14 15:18] LABS: ABG O2 HGB 86.3 % (95-100); BEecf 14.2 (-2.0-3.0); COHb 3.2 (0.5-1.5); HCO3 40.9 (21-28); MetHb 0.7 (0-1.5); TCO2 43.6 (19-24); sO2 83.2 % (94-98); tHb 11.2 g/dl (11.7-17.4)
[2020-12-14 15:27] LABS: ABG O2 HGB 87.3 % (95-100); BEecf 14.8 (-2.0-3.0); COHb 2.6 (0.5-1.5); HCO3 41.4 (21-28); MetHb 1.1 (0-1.5); sO2 83.6 % (94-98)
[2020-12-14 15:28] LABS: BORDETELLA PARAPERTUSSIS (PCR) NOT DETECTED (NOT DETECT); BORDETELLA PERTUSSIS (PCR) NOT DETECTED (NOT DETECT); CHLAMYDIA PNEUMONIAE (PCR) NOT DETECTED (NOT DETECT); CORONAVIRUS 229E (PCR) NOT DETECTED (NOT DETECT); CORONAVIRUS HKU1 (PCR) NOT DETECTED (NOT DETECT); CORONAVIRUS NL63 (PCR) NOT DETECTED (NOT DETECT); CORONAVIRUS OC43 (PCR) NOT DETECTED (NOT DETECT); HUMAN METAPNEUMOVIRUS (PCR) NOT DETECTED (NOT DETECT); HUMAN RHINOVIRUS/ENTEROV (PCR) NOT DETECTED (NOT DETECT); INFLUENZA B (PCR) NOT DETECTED (NOT DETECT); MYCOPLASMA PNEUMONIAE (PCR) NOT DETECTED (NOT DETECT); PARAINFLUENZA VIRUS 1 (PCR) NOT DETECTED (NOT DETECT); PARAINFLUENZA VIRUS 2 (PCR) NOT DETECTED (NOT DETECT); PARAINFLUENZA VIRUS 3 (PCR) NOT DETECTED (NOT DETECT); PARAINFLUENZA VIRUS 4 (PCR) NOT DETECTED (NOT DETECT); RESPIRATORY SYNCYTIAL V (PCR) NOT DETECTED (NOT DETECT); SARS_COV_2 (PCR) NOT DETECTED (NOT DETECT)
[2020-12-14 15:29] LABS: ABG PH 7.29 (7.35-7.45)
[2020-12-14] MEDS ORDERED: ZOFRAN 4 MG/2 ML IVP PRN (15:58)
[2020-12-14 16:12] LABS: ADENOVIRUS (PCR) NOT DETECTED (NOT DETECT)
[2020-12-14] MEDS ORDERED: LEVAQUIN 750 MG/150 ML D5W 750 MG/150 ML BAG IV SCH (16:30)
[2020-12-14] MEDS ORDERED: LASIX IVP SCH (16:30)
[2020-12-14] MEDS ORDERED: ZOSYN 3.375 GM 3.375 GM in SODIUM CHLORIDE 50 ML IV SCH (16:30)
[2020-12-14] MEDS ORDERED: SOLU-MEDROL 40 MG IVP SCH ×2 (16:30→21:00)
[2020-12-14] MEDS ORDERED: LASIX IVP ONE (16:40)
[2020-12-14 16:51] LABS: ABG O2 HGB 95.9 % (95-100); ABG PH 7.32 (7.35-7.45); BEecf 14.6 (-2.0-3.0); COHb 2.4 (0.5-1.5); HCO3 40.7 (21-28); MetHb 0.7 (0-1.5); TCO2 43.1 (19-24); sO2 97.2 % (94-98); tHb 10.8 g/dl (11.7-17.4)
[2020-12-14] MEDS ORDERED: ALBUTEROL 0.083% NEB NEB SCH (17:00)
[2020-12-14] MEDS ORDERED: NITROSTAT SL PRN (17:39)
[2020-12-14] MEDS ORDERED: ATROPINE SULFATE PFS IVP PRN (17:39)
[2020-12-14 17:58] VITALS: BMI 42.3
[2020-12-14] MEDS ORDERED: ROCEPHIN 1 GM/50 ML D5W 1 GM/50 ML BAG IV SCH (18:00)
[2020-12-14] MEDS: LOVENOX SUBCUT SCH (18:27)
[2020-12-14] MEDS: LASIX IVP SCH (18:41)
[2020-12-14] MEDS: ZOLOFT PO SCH (19:21)
[2020-12-14 19:37] LABS: ABG O2 HGB 87.7 % (95-100); BEecf 18.4 (-2.0-3.0); COHb 3.2 (0.5-1.5); HCO3 45.1 (21-28); sO2 85.4 % (94-98); tHb 11.1 g/dl (11.7-17.4)
[2020-12-14 19:38] LABS: ABG PH 7.28 (7.35-7.45)
[2020-12-14] MEDS: DUONEB NEB SCH (19:50)
[2020-12-14] MEDS: PULMICORT 1 MG/2 ML NEB SCH (19:50)
[2020-12-14] MEDS ORDERED: PRILOSEC PO SCH (21:00)
[2020-12-14] MEDS: ASTELIN 0.1% NAS SCH (21:04)
[2020-12-14] MEDS: NAMENDA PO SCH (21:04)
[2020-12-14] MEDS: COUMADIN PO SCH (21:05)
[2020-12-14] MEDS: SOLU-CORTEF 250 MG IVP SCH (21:21)
[2020-12-14 22:24] LABS: CREATINE KINASE 30.4 U/L (30-135)
[2020-12-14 22:37] LABS: TROPONIN I 0.012 ng/ml (0.0000-0.120)
[2020-12-15] MEDS: SOLU-CORTEF 250 MG IVP SCH ×5 (01:00→23:29)
[2020-12-15] MEDS: DUONEB NEB SCH ×4 (04:30→19:05)
[2020-12-15] MEDS: PULMICORT 1 MG/2 ML NEB SCH ×2 (04:30→19:05)
[2020-12-15 04:34] LABS: ABG PH 7.34 (7.35-7.45)
[2020-12-15 04:35] LABS: BEecf 18.4 (-2.0-3.0); COHb 3.7 (0.5-1.5); HCO3 44.2 (21-28); MetHb 0.8 (0-1.5); TCO2 46.7 (19-24); sO2 91.5 % (94-98)
[2020-12-15 04:36] LABS: ABG O2 HGB 91.9 % (95-100); tHb 10.6 g/dl (11.7-17.4)
[2020-12-15 05:37] LABS: BASOPHILS % (AUTO) 0.1 % (0.0-3.0); HEMATOCRIT 36.4 % (37.0-47.0); HEMOGLOBIN 10.5 g/dl (12.0-16.0); IMMATURE GRANULOCYTE % (AUTO) 0.4 % (0.0-5.0); LYMPHOCYTES # (AUTO) 0.3 K/uL (0.60-3.4); LYMPHOCYTES % (AUTO) 3.8 (10.0-50.0); MEAN CORPUSCULAR HEMOGLOBIN 27.1 pg (27.0-31.0); MEAN CORPUSCULAR HGB CONC 28.8 (31.8-35.4); MEAN CORPUSCULAR VOLUME 93.8 fl (81.0-99.0); MONOCYTES # (AUTO) 0.1 K/uL (0.4-2.0); MONOCYTES % (AUTO) 1.4 (0-10); NEUTROPHILS # (AUTO) 6.5 K/ul (2.0-6.9); NEUTROPHILS % (AUTO) 94.3 % (42.2-75.2); PLATELET COUNT 184 10^3/uL (140-440); RDW COEFFICIENT OF VARIATION 16.3 % (11.6-14.8); RED BLOOD COUNT 3.88 10^6/ul (4.20-5.40)
[2020-12-15 05:49] LABS: ALANINE AMINOTRANSFERASE 16.2 U/L (0-35); ALBUMIN 3.36 g/dL (3.5-5.0); ASPARTATE AMINO TRANSFERASE 21.2 U/L (14-36); BILIRUBIN,TOTAL 0.33 mg/dL (0.2-1.3); BLOOD UREA NITROGEN 21.7 mg/dL (7-17); CHLORIDE 93.7 mmol/L (98-107); CREATINE KINASE 21.9 U/L (30-135); CREATININE 1.14 mg/dL (0.60-1.30); GLUCOSE 118.7 mg/dL (74-106); POTASSIUM 4.48 mmol/L (3.5-5.1); SODIUM 136.8 mmol/L (134.5-145); TOTAL PROTEIN 5.88 g/dL (6.3-8.2)
[2020-12-15] MEDS: LASIX IVP SCH (05:50)
[2020-12-15 06:04] LABS: CARBON DIOXIDE 37.1 mmol/L (22-30.0); TROPONIN I < 0.012 ng/ml (0.0000-0.120)
[2020-12-15 06:12] LABS: PROTHROMBIN TIME 12.1 SEC (9.3-11.0)
[2020-12-15 06:25] LABS: ANISOCYTOSIS NOT PRESENT (NOT PRESENT); HYPOCHROMASIA 1+ (NOT PRESENT)
[2020-12-15] MEDS ORDERED: ARICEPT PO SCH (09:00)
--- NOTE | 2020-12-15 09:48 | PCM.PROG ---
Attending Provider: ATTENDING PROVIDER: Dr. FRENCH JACOBSON DATE OF SERVICE: 12/15/20 SUBJECTIVE: This 80 year old /WHITE F was hospitalized 12/14/20 with respiratory failure with pneumonia. The patient had compensated acute respiratory acidosis which was treated with bipap, steroids, antibiotics and diuretics. The patient yesterday night had co2 retention to the point that she was obtunded. By hannah nging BIPAP parameters and aggressive treatment with steroids and nebs, the patient's condition improved on 2.5L. She has saturation of 92%. She is oriented to time, place and person talking to the family. REVIEW OF SYSTEMS: CONSTITUTIONAL: No night sweats. No fatigue, malaise, lethargy. No fever or chills. HEENT: Eyes: No visual changes. No eye pain. No eye discharge. ENT: No runny nose. No epistaxis. No sinus pain. No odynophagia. No congestion. RESPIRATORY: No cough, no congestion. No hemoptysis. No shortness of breath. CARDIOVASCULAR: No angina symptoms. No CHF symptoms. No atypical chest pain for CAD. No palpitations. No orthopnea.. GASTROINTESTINAL: No abdominal pain. No nausea or vomiting. No diarrhea or constipation. No hematemesis. No hematochezia. GENITOURINARY: No urgency. No frequency. No dysuria. No hematuria. No obstructive symptoms. No discharge. No pain. No significant abnormal bleeding. MUSCULOSKELETAL: No musculoskeletal pain; no joint swelling. NEUROLOGICAL: Awake, alert, oriented to time, place and person. No headache. No neck pain. No syncope. No seizures. No dizziness. PSYCHIATRIC: Not anxious. No depression. No suicidal thoughts. No homicidal thoughts. SKIN: No rash. No lesions. No wounds. ENDOCRINE: No unexplained weight loss. No weight gain. HEMATOLOGIC/LYMPHATIC: No anemia. No purpura. No petechiae. No prolonged or exc essive bleeding. No palpable lymph nodes. PHYSICAL EXAMINATION: GENERAL: The patient is awake, alert and oriented, lying/sitting in bed in no distress. VITAL SIGNS: Temperature 98.5 F, Pulse 89, Respiratory Rate 18, BP 135/78, Pulse Ox 92% HEENT: Head normocephalic, atraumatic. Eyes: Extraocular muscles are intact. Pupils are equal, round and reactive to light and accommodation. Ears: No lesions. Nose appeared normal. Throat: No exudate or erythema. NECK: Supple. No JVD, no carotid bruit. No lymphadenopathy or thyromegaly. LUNGS: Good air entry. Clear to auscultation. Percussion note normal. Chest symmetrical. HEART: S1, S2, no S3. No murmurs. No cyanosis or clubbing. No ascites. Pulses: Dorsalis pedis and posterior tibial pulses +1 to +2 both sides. ABDOMEN: Soft. Non-tender. Bowel sounds active. No CVA tenderness. No mass felt. EXTREMITIES: No edema. Full range of motion of all extremities, equal. NEUROLOGIC: No focal deficit. Cranial nerves II through XII are grossly intact. No headache, no double vision or headache. SKIN: Warm and dry. Intact. Turgor-normal. LYMPHATIC: No palpable lymph nodes/no lymphedema. MUSCULOSKELETAL: Normal joints with no swelling. Muscle tone is normal. LAB REVIEW: 12/15/20 04:49 12/15/20 04:49 12/15/20 04:49: PT 12.1 H, INR 1.14 12/15/20 04:49: Sodium 136.8, Potassium 4.48, Chloride 93.7 L, Carbon Dioxide 37.1 H, Anion Gap 10.48, BUN 21.7 H, Creatinine 1.14, Estimated GFR (MDRD) 46.00, BUN/Creatinine Ratio 19.03, Glucose 118.7 H, Calcium 8.10 L, Total Bilirubin 0.33, AST 21.2, ALT 16.2, Alkaline Phosphatase 60.0, Total Creatine Kinase 21.9 L, Troponin I < 0.012, Total Protein 5.88 L, Albumin 3.36 L, Globulin 2.52, Albumin/Globulin Ratio 1.33 12/15/20 04:49: WBC 6.90, RBC 3.88 L, Hgb 10.5 L, Hct 36.4 L, MCV 93.8, MCH 27.1, MCHC 28.8 L, RDW Coeff of Monique 16.3 H, Plt Count 184, Immature Gran % (Aut o) 0.4, Neut % (Auto) 94.3 H, Lymph % (Auto) 3.8 L, [place] % (Auto) 1.4, Eos % (Auto) 0.0, Baso % (Auto) 0.1, Neut # (Auto) 6.5, Lymph # (Auto) 0.3 L, [place] # (Auto) 0.1 L, Eos # (Auto) 0.0, Baso # (Auto) 0.0, Immature Gran # (Auto) 0.0, Hypochromasia 1+, Anisocytosis Not present 12/15/20 04:15: Puncture Site Lrad, Base Excess 18.4 H, O2 Saturation 91.5 L, ABG pH 7.34 L, ABG pCO2 82.0 H, ABG pO2 66.0 L, ABG HCO3 44.2 H, ABG Total CO2 46.7 H, Adam Test Pos, Hemoglobin 0.8, Oxyhemoglobin 91.9 L, Carboxyhemoglobin 3.7 H, Total Hemoglobin 10.6 L, O2 Delivery Device Bipap, FiO2 % 40.0 12/14/20 22:02: Total Creatine Kinase 30.4, Troponin I 0.012 12/14/20 19:30: Puncture Site Lrad, Base Excess 18.4 H, O2 Saturation 85.4 L, ABG pH 7.28 L*, ABG pCO2 96.0 H, ABG pO2 57.0 L*, ABG HCO3 45.1 H, ABG Total CO2 48.0 H, Adam Test +, Hemoglobin 1.0, Oxyhemoglobin 87.7 L, Carboxyhemoglobin 3.2 H, Total Hemoglobin 11.1 L, O2 Delivery Device Bipap, FiO2 % 40.0 12/14/20 16:40: Puncture Site Rrad, Base Excess 14.6 H, O2 Saturation 97.2, ABG pH 7.32 L, ABG pCO2 79.0 H, ABG pO2 100.0, ABG HCO3 40.7 H, ABG Total CO2 43.1 H , Adam Test P0s, Hemoglobin 0.7, Oxyhemoglobin 95.9, Carboxyhemoglobin 2.4 H, Total Hemoglobin 10.8 L, O2 Delivery Device Bipap, FiO2 % 50.0 12/14/20 15:21: Puncture Site R rad, Base Excess 14.8 H, O2 Saturation 83.6 L, ABG pH 7.29 L*, ABG pCO2 86.0 H, ABG pO2 54.0 L*, ABG HCO3 41.4 H, ABG Total CO2 44.0 H, Aadm Test Y, Hemoglobin 1.1, Oxyhemoglobin 87.3 L, Carboxyhemoglobin 2.6 H, Total Hemoglobin 11.0 L, O2 Delivery Device Vapotherm, FiO2 % 36.0 12/14/20 14:44: Adenovirus (PCR) Not detected, B. pertussis DNA (PCR) Not detected, B.parapertussis DNA PCR Not detected, C. pneumoniae DNA (PCR) Not detected, Coronavirus OC43 (PCR) Not detected, Coronavirus HKU1 (PCR) Not detected, Coronavirus 229E (PCR) Not detected, Coronavirus NL63 (PCR) Not detected, Human Metapneumovir PCR Not detected, Influenza Type A (PCR) Not detected, Influenza B (RT-PCR) Not detected, M. pneumoniae (PCR) Not detected, Parainfluenza 1 (PCR) Not detected, Parainfluenza 2 (PCR) Not detected, Parainfluenza 3 (PCR) Not detected, Parainfluenza 4 (PCR) Not detected, RSV (PCR) Not detected, Entero/Rhino (PCR) Not detected, SARS-CoV-2 (PCR) Not detected 12/14/20 14:13: Urine Color Yellow, Urine Clarity Clear, Urine pH 5.0, Ur Specific [place] 1.020, Urine Protein Negative, Urine Glucose (UA) Negative, Urine Ketones Negative, Urine Blood Negative, Urine Nitrite Negative, Urine Bilirubin Negative, Urine Urobilinogen 0.2, Ur Leukocyte Esterase Negative 12/14/20 14:01: Puncture Site R rad, Base Excess 14.2 H, O2 Saturation 83.2 L, ABG pH 7.28 L*, ABG pCO2 87.0 H, ABG pO2 54.0 L*, ABG HCO3 40.9 H, ABG Total CO2 43.6 H, Adam Test +, Hemoglobin 0.7, Oxyhemoglobin 86.3 L, Carboxyhemoglobin 3.2 H, Total Hemoglobin 11.2 L, O2 Delivery Device Nc, Oxygen Liter Flow 3.00 12/14/20 12:35: NT-Pro-B Natriuret Pep 1310.000 H 12/14/20 12:35: Sodium 138.2, Potassium 4.56, Chloride 94.7 L, Carbon Dioxide 39.4 H, Anion Gap 8.66, BUN 21.0 H, Creatinine 1.15, Estimated GFR (MDRD) 46.00, BUN/Creatinine Ratio 18.26, Glucose 128.7 H, Calcium 8.16 L, Total Bilirubin 0.37, AST 24.0, ALT 18.8, Alkaline Phosphatase 58.0, Total Protein 6.30, Albumin 3.75, Globulin 2.55, Albumin/Globulin Ratio 1.47 12/14/20 12:35: WBC 7.74, RBC 3.95 L, Hgb 10.7 L, Hct 38.1, MCV 96.5, MCH 27.1, MCHC 28.1 L, RDW Coeff of Monique 16.9 H, Plt Count 205, Immature Gran % (Auto) 0.3, Neut % (Auto) 84.7 H, Lymph % (Auto) 5.0 L, [place] % (Auto) 9.2, Eos % (Auto) 0.5, Baso % (Auto) 0.3, Neut # (Auto) 6.6, Lymph # (Auto) 0.4 L, [place] # (Auto) 0.7, Eos # (Auto) 0.0, Baso # (Auto) 0.0, Immature Gran # (Auto) 0.0, Hypochromasia 3+, Poikilocytosis 2+, Anisocytosis 1+ ASSESSMENT: Please see below. 1. Acute respiratory failure with co2 retention seems to be responding to the treatment. Condition seems to be stable. PLAN: 1. Coumadin 6 mg one extra dose today. 2. Daily INR. 3. Continue Lovenox. 4. Will d/c Lovenox on Friday. Yesterday decision made by [facility] with physician, patient was made DNR. The treatment with BIPAP and other aggressive measures has really helped this patient. Plan and coordination of the patient's care discussed in the presence of Salesperson Hosiery and nurse. CONDITION: Stable SCRIBED BY: SERVANDO CANALES, Lumber Scaler scribed while in presence of service performed by Dr. FRENCH JACOBSON on 12/15/20 ([id number])
[2020-12-15 10:13] LABS: ABG PH 7.38 (7.35-7.45)
[2020-12-15 10:14] LABS: ABG O2 HGB 87.1 % (95-100); BEecf 15.7 (-2.0-3.0); COHb 3.2 (0.5-1.5); HCO3 40.8 (21-28); MetHb 0.7 (0-1.5); TCO2 42.9 (19-24); tHb 11.1 g/dl (11.7-17.4)
[2020-12-15] MEDS: LOTENSIN PO SCH (10:31)
[2020-12-15] MEDS: ZOLOFT PO SCH (10:31)
[2020-12-15] MEDS: FERROUS SULFATE PO SCH (10:31)
[2020-12-15] MEDS: TRIGLIDE PO SCH (10:31)
[2020-12-15] MEDS: NEURONTIN PO SCH (10:32)
[2020-12-15] MEDS: CLARITIN PO SCH (10:32)
[2020-12-15] MEDS: NORVASC PO SCH (10:32)
[2020-12-15] MEDS: PRILOSEC PO SCH ×2 (10:32→17:14)
[2020-12-15] MEDS: ARICEPT PO SCH (10:32)
[2020-12-15] MEDS: NAMENDA PO SCH ×2 (10:32→21:02)
[2020-12-15] MEDS: ASTELIN 0.1% NAS SCH ×2 (10:36→21:03)
[2020-12-15] MEDS: LOVENOX SUBCUT SCH (10:36)
[2020-12-15] MEDS: HUMULIN R SUBCUT PRN ×3 (11:31→19:57)
--- NOTE | 2020-12-15 16:32 | RS.PTINEVL ---
Subjective - Patient information Date of Evaluation: 12/15/11 Date of Arrival on Unit: 12/15/20 Admitted From:: [facility] ([facility]) Diagnosis: Respiratory failure, uncontrolled DM Usual Living Arrangement: [facility] Medical History: CVA/TIA, COPD, Diabetes, Arthritis Medical History Comments:: anxiety, afib, CAD, CKD, depression, lung tumor, macular degeneration Surgical History: Knee Replacement (BTKR), Lumbar Spine, Hysterectomy Medications: see chart Subjective Information/ Patient Comments:: pt states "Where am I?" "Why am I here?" She follows simple commands but often asks same question over and over. - Level of function Prior to this admission, the patient could do the following:: Partially Dependent Ambulation Current Level of Function: Partially Dependent Current Equipment Used at Home: LIVES AT [facility] Interventions - Objective Patient Orientation: Person Current Interventions: IV's, Oxygen, Telemetry, Igll Catheter Range of Motion - ROM Right Upper Extremity AROM: WFL's Left Upper Extremity AROM: WFL's Right Lower Extremity AROM: WFL's Left Lower Extremity AROM: WFL's Muscle Strength - Muscle Strength Right Upper Extremity Strength: Mild Weakness (grossly 4/5) Left Upper Extremity Strength: Mild Weakness (grossly 4/5) Right Lower Extremity Strength: Mild Weakness (hip flex 4-/5, knee flex/ext 4/5, ankle DF/PF 4/5) Left Lower Extremity Strength: Mild Weakness (hip flex 4-/5, knee flex/ext 4/5, ankle DF/PF 4/5) Sensation - Sensation Right Upper Extremity Sensation: Intact/Normal Left Upper Extremity Sensation: Intact/Normal Palpation Palpation Findings: None/Normal Balance - Sitting Balance and Reactions Static Sitting Balance: Fair Dynamic Sitting Balance: Fair - Standing Balance and Reactions Static Standing Balance: Poor Dynamic Standing Balance: Poor Standing Equilibrium Reactions: Delayed Left, Delayed Right Standing Protective Reactions: Delayed Left, Delayed Right Functional Mobility - Bed Mobility Rolling R/L: Min Assist, Mod Assist Supine to Sit: Mod Assist, 2 person assist - Transfers Sit to Stand: Mod Assist, 1 person assist Stand to Sit: Mod Assist, 1 person assist Stand Pivot Transfers: Mod Assist, 1 person assist - Safety Awareness Safety Awareness: Poor CHUY INDEX SCORE: n/a Ambulation - Ambulation Assistive Device Used: Rolling Walker Distance: 2-3 steps from bed to C Assistance needed with Ambulation: Mod Assist, 1 person assist Gait Deviations: Forward posture, Short stride Factors Affecting Ambulation: Decreased Balance, Weakness, Decreased Safety, Cognitive Status, Limited Endurance Treatment time - Time with patient Length of Evaluation: 21 Total treatment time: 31 Patient Education - Education Patient Education: Activity Modification, Education of Plan of Care Teaching Recipient: Patient Teaching Methods: Discussion Assessment - Assessment Problem List:: Decreased level of function, Requires training/education, Decreased safety/Risk of falls, Weakness, Cognitive status limits abilities Rehab Potential: Fair Further Therapy Indicated?: Yes Candidate for Swing Bed for Therapy Services?: Feel pt would not qualify for swing bed due to pt from [facility]. Evaluation Complexity: HISTORY: Medium, EXAM OF BODY SYSTEMS: Medium, CLINICAL PRESENTATION: Medium, CLINICAL DECISION MAKING: Medium Patient's Goal(s): pt unable to state goal. Short Term Goals GOAL #1: pt demonstrate rolling and scooting in bed independently Goal to be met by: 12/18/20 GOAL #2: Transfer sup to/from sit min to mod x 1 Goal to be met by: 12/18/20 GOAL #3: Sit to/from stand min x 1 Goal to be met by: 12/18/20 GOAL #4: pt amb 50ft with rwx with min x 1 Goal to be met by: 12/18/20 GOAL #5: Improve BLE Strength 4 to 4+/5 Goal to be met by: 12/18/20 M[facility] Goals GOAL #1: Transfer sup to/from sit to/from stand min to CGA Goal to be met by: 12/20/20 GOAL #2: pt amb 100ft with rwx with CGA Goal to be met by: 12/20/20 GOAL #3: Improve dyn stand balance fair Goal to be met by: 12/20/20 Plan Plan of Care: Therapeutic EX, Therapeutic Activity Other:: gait training Frequency of Treatment: 1-2 X day, as tolerated Duration of Treatment: 5 days Anticipated Discharge Destination: [facility] Treatment Diagnosis (ICD 10 Codes): impaired balance R 26.81. gait difficulty R 26.2. muscle weakness M 62.81 Has the Physician been added for Co-signature?: Yes
[2020-12-15] MEDS ORDERED: COUMADIN PO ONE (17:00)
[2020-12-15] MEDS: MEVACOR PO SCH (17:14)
[2020-12-15] MEDS: COUMADIN PO SCH (17:15)
[2020-12-15] MEDS: ATIVAN PO PRN (17:15)
[2020-12-15] MEDS: ROCEPHIN 1 GM/50 ML D5W 1 GM/50 ML BAG IV SCH (20:43)
[2020-12-16] MEDS: ATIVAN PO PRN ×2 (00:06→18:31)
[2020-12-16] MEDS: PULMICORT 1 MG/2 ML NEB SCH ×2 (04:30→20:10)
[2020-12-16] MEDS: DUONEB NEB SCH ×4 (04:30→19:05)
[2020-12-16 05:46] LABS: BASOPHILS % (AUTO) 0.1 % (0.0-3.0); HEMATOCRIT 33.3 % (37.0-47.0); HEMOGLOBIN 10.1 g/dl (12.0-16.0); IMMATURE GRANULOCYTE % (AUTO) 0.2 % (0.0-5.0); LYMPHOCYTES # (AUTO) 0.2 K/uL (0.60-3.4); LYMPHOCYTES % (AUTO) 2.6 (10.0-50.0); MEAN CORPUSCULAR HEMOGLOBIN 27.2 pg (27.0-31.0); MEAN CORPUSCULAR HGB CONC 30.3 (31.8-35.4); MEAN CORPUSCULAR VOLUME 89.5 fl (81.0-99.0); MONOCYTES # (AUTO) 0.3 K/uL (0.4-2.0); MONOCYTES % (AUTO) 3.9 (0-10); NEUTROPHILS # (AUTO) 8.1 K/ul (2.0-6.9); NEUTROPHILS % (AUTO) 93.2 % (42.2-75.2); PLATELET COUNT 170 10^3/uL (140-440); RDW COEFFICIENT OF VARIATION 16.5 % (11.6-14.8); RED BLOOD COUNT 3.72 10^6/ul (4.20-5.40); WHITE BLOOD COUNT 8.72 K/ul (4.6-10.2)
[2020-12-16] MEDS: PRILOSEC PO SCH ×2 (05:59→17:03)
[2020-12-16] MEDS: SOLU-CORTEF 250 MG IVP SCH ×4 (06:00→23:18)
[2020-12-16] MEDS: LASIX IVP SCH (06:00)
[2020-12-16 06:06] LABS: ALANINE AMINOTRANSFERASE 13.5 U/L (0-35); ALBUMIN 3.25 g/dL (3.5-5.0); ASPARTATE AMINO TRANSFERASE 19.1 U/L (14-36); BILIRUBIN,TOTAL 0.32 mg/dL (0.2-1.3); BLOOD UREA NITROGEN 34.3 mg/dL (7-17); CALCIUM 8.21 mg/dL (8.4-10.2); CARBON DIOXIDE 34.4 mmol/L (22-30.0); CHLORIDE 91.7 mmol/L (98-107); CREATININE 1.07 mg/dL (0.60-1.30); GLUCOSE 315.7 mg/dL (74-106); POTASSIUM 4.24 mmol/L (3.5-5.1); TOTAL PROTEIN 5.51 g/dL (6.3-8.2)
[2020-12-16 06:14] LABS: PROTHROMBIN TIME 12.8 SEC (9.3-11.0)
[2020-12-16] MEDS: HUMULIN R SUBCUT PRN ×4 (06:24→21:01)
[2020-12-16 06:47] LABS: ABG O2 HGB 96.1 % (95-100); ABG PH 7.41 (7.35-7.45); BEecf 16.6 (-2.0-3.0); COHb 3.1 (0.5-1.5); HCO3 41.2 (21-28); MetHb 0.1 (0-1.5); TCO2 43.2 (19-24); sO2 96.8 % (94-98); tHb 10.7 g/dl (11.7-17.4)
[2020-12-16] MEDS: LOTENSIN PO SCH (08:20)
[2020-12-16] MEDS: NAMENDA PO SCH ×2 (08:21→21:00)
[2020-12-16] MEDS: TRIGLIDE PO SCH (08:21)
[2020-12-16] MEDS: FERROUS SULFATE PO SCH (08:21)
[2020-12-16] MEDS: ARICEPT PO SCH (08:21)
[2020-12-16] MEDS: CLARITIN PO SCH (08:22)
[2020-12-16] MEDS: ZOLOFT PO SCH (08:22)
[2020-12-16] MEDS: NORVASC PO SCH (08:22)
[2020-12-16] MEDS: NEURONTIN PO SCH (08:22)
[2020-12-16] MEDS: ASTELIN 0.1% NAS SCH ×2 (08:25→21:00)
[2020-12-16] MEDS: LOVENOX SUBCUT SCH (08:27)
[2020-12-16] MEDS: MEVACOR PO SCH (17:04)
[2020-12-16] MEDS: COUMADIN PO SCH (17:05)
[2020-12-16] MEDS: ROCEPHIN 1 GM/50 ML D5W 1 GM/50 ML BAG IV SCH (21:02)
[2020-12-16] MEDS: TYLENOL PO PRN (23:17)
[2020-12-17] MEDS: ATIVAN PO PRN ×2 (00:27→21:53)
[2020-12-17] MEDS: DUONEB NEB SCH ×4 (04:50→19:45)
[2020-12-17] MEDS: PULMICORT 1 MG/2 ML NEB SCH ×2 (04:50→19:45)
[2020-12-17] MEDS: PRILOSEC PO SCH ×2 (05:52→16:25)
[2020-12-17] MEDS: SOLU-CORTEF 250 MG IVP SCH (05:52)
[2020-12-17] MEDS: LASIX IVP SCH (05:53)
[2020-12-17 05:58] LABS: PROTHROMBIN TIME 13.5 SEC (9.3-11.0)
[2020-12-17 06:38] LABS: ABG PH 7.44 (7.35-7.45)
[2020-12-17] MEDS: HUMULIN R SUBCUT PRN ×4 (06:38→20:34)
[2020-12-17 06:40] LABS: ABG O2 HGB 93.9 % (95-100); BEecf 16.6 (-2.0-3.0); COHb 2.7 (0.5-1.5); HCO3 40.8 (21-28); MetHb 0.6 (0-1.5); TCO2 42.6 (19-24); sO2 94.6 % (94-98); tHb 10.4 g/dl (11.7-17.4)
[2020-12-17 07:37] LABS: BASOPHILS % (AUTO) 0.1 % (0.0-3.0); HEMATOCRIT 34.6 % (37.0-47.0); HEMOGLOBIN 10.1 g/dl (12.0-16.0); IMMATURE GRANULOCYTE % (AUTO) 0.4 % (0.0-5.0); LYMPHOCYTES # (AUTO) 0.2 K/uL (0.60-3.4); LYMPHOCYTES % (AUTO) 1.7 (10.0-50.0); MEAN CORPUSCULAR HEMOGLOBIN 26.5 pg (27.0-31.0); MEAN CORPUSCULAR HGB CONC 29.2 (31.8-35.4); MEAN CORPUSCULAR VOLUME 90.8 fl (81.0-99.0); MONOCYTES # (AUTO) 0.4 K/uL (0.4-2.0); MONOCYTES % (AUTO) 3.9 (0-10); NEUTROPHILS # (AUTO) 9.5 K/ul (2.0-6.9); NEUTROPHILS % (AUTO) 93.9 % (42.2-75.2); PLATELET COUNT 179 10^3/uL (140-440); RDW COEFFICIENT OF VARIATION 16.6 % (11.6-14.8); RED BLOOD COUNT 3.81 10^6/ul (4.20-5.40); WHITE BLOOD COUNT 10.12 K/ul (4.6-10.2)
[2020-12-17 07:49] LABS: ALANINE AMINOTRANSFERASE 16.4 U/L (0-35); ALBUMIN 3.43 g/dL (3.5-5.0); ALKALINE PHOSPHATASE 60.3 U/L (53-141); ASPARTATE AMINO TRANSFERASE 20.2 U/L (14-36); BILIRUBIN,TOTAL 0.27 mg/dL (0.2-1.3); BLOOD UREA NITROGEN 30.9 mg/dL (7-17); CALCIUM 8.15 mg/dL (8.4-10.2); CARBON DIOXIDE 39.1 mmol/L (22-30.0); CHLORIDE 88.7 mmol/L (98-107); CREATININE 0.96 mg/dL (0.60-1.30); POTASSIUM 3.81 mmol/L (3.5-5.1); SODIUM 132.7 mmol/L (134.5-145); TOTAL PROTEIN 5.86 g/dL (6.3-8.2)
[2020-12-17] MEDS: NEURONTIN PO SCH (09:17)
[2020-12-17] MEDS: TRIGLIDE PO SCH (09:17)
[2020-12-17] MEDS: LOTENSIN PO SCH (09:17)
[2020-12-17] MEDS: NORVASC PO SCH (09:17)
[2020-12-17] MEDS: ZOLOFT PO SCH (09:17)
[2020-12-17] MEDS: NAMENDA PO SCH ×2 (09:17→20:36)
[2020-12-17] MEDS: FERROUS SULFATE PO SCH (09:18)
[2020-12-17] MEDS: ARICEPT PO SCH (09:18)
[2020-12-17] MEDS: ASTELIN 0.1% NAS SCH ×2 (09:19→20:36)
[2020-12-17] MEDS: CLARITIN PO SCH (09:22)
[2020-12-17] MEDS: MEVACOR PO SCH (16:25)
[2020-12-17] MEDS: PREDNISONE PO SCH (16:25)
[2020-12-17] MEDS: COUMADIN PO SCH (16:35)
[2020-12-17] MEDS ORDERED: COUMADIN PO ONE (17:00)
[2020-12-17] MEDS: ROCEPHIN 1 GM/50 ML D5W 1 GM/50 ML BAG IV SCH (20:35)
[2020-12-18] MEDS ORDERED: VISTARIL INJ IM STA (01:08)
[2020-12-18] MEDS: PULMICORT 1 MG/2 ML NEB SCH ×2 (04:45→19:55)
[2020-12-18] MEDS: DUONEB NEB SCH ×4 (04:45→19:55)
[2020-12-18 05:36] LABS: HEMATOCRIT 32.7 % (37.0-47.0); HEMOGLOBIN 9.7 g/dl (12.0-16.0); MEAN CORPUSCULAR HEMOGLOBIN 27.2 pg (27.0-31.0); MEAN CORPUSCULAR HGB CONC 29.7 (31.8-35.4); MEAN CORPUSCULAR VOLUME 91.6 fl (81.0-99.0); PLATELET COUNT 172 10^3/uL (140-440); RDW COEFFICIENT OF VARIATION 16.3 % (11.6-14.8); RED BLOOD COUNT 3.57 10^6/ul (4.20-5.40); WHITE BLOOD COUNT 11.06 K/ul (4.6-10.2)
[2020-12-18 05:46] LABS: ALANINE AMINOTRANSFERASE 21.1 U/L (0-35); ALBUMIN 3.37 g/dL (3.5-5.0); ALKALINE PHOSPHATASE 50.9 U/L (53-141); ASPARTATE AMINO TRANSFERASE 23.3 U/L (14-36); BILIRUBIN,TOTAL 0.39 mg/dL (0.2-1.3); BLOOD UREA NITROGEN 30.5 mg/dL (7-17); CALCIUM 7.91 mg/dL (8.4-10.2); CHLORIDE 89.1 mmol/L (98-107); CREATININE 1.06 mg/dL (0.60-1.30); GLUCOSE 298.5 mg/dL (74-106); POTASSIUM 3.68 mmol/L (3.5-5.1); PROTHROMBIN TIME 15.2 SEC (9.3-11.0); TOTAL PROTEIN 5.67 g/dL (6.3-8.2)
[2020-12-18 05:47] LABS: ANISOCYTOSIS NOT PRESENT (NOT PRESENT)
[2020-12-18] MEDS: PRILOSEC PO SCH ×2 (06:14→17:32)
[2020-12-18] MEDS: LASIX IVP SCH (06:14)
[2020-12-18] MEDS: HUMULIN R SUBCUT PRN ×4 (06:22→20:36)
[2020-12-18 08:10] LABS: ABG PH 7.39 (7.35-7.45)
[2020-12-18 08:11] LABS: BEecf 21.6 (-2.0-3.0); COHb 2.8 (0.5-1.5); HCO3 46.6 (21-28)
[2020-12-18 08:12] LABS: ABG O2 HGB 93.8 % (95-100); sO2 95.5 % (94-98); tHb 9.9 g/dl (11.7-17.4)
--- NOTE | 2020-12-18 09:12 | PN ---
DATE OF SERVICE: 12/14/20 SUBJECTIVE: The patient is seen and examined twice, once in the emergency room and once on the floor. The patient's initial pH was 7.22 with high pc02 and low p02 in respiratory failure. The patient was obtunded at times. The patient was put on BIPAP with the BIPAP at 40%. The patient's p02 was 50 with pc02 of 90 with pH of 7.29. At nearly 8 o'clock in the evening the patient's orders for BIPAP were changed. It was increased 18 from 14, c02 off. The patient opened her eyes and talked to me and asked me what time it was and also what was wrong with her. I explained to her that we are not going to use the respirator, just BIPAP and she cried and agreed. Earlier, I had to talked to Girma, who gave me the number for DAIJA (that is Vic) son and gave my number to Girma who gave it to DAIJA who called me back and discussed the patient's condition was deteriorating and expected anything could go wrong within 24 hours and he said that he would be leaving [place], talked about respirator and he agreed not to put her on respirator and use just the BIPAP. I told him that her respirator status is so that in case she ends up on the ventilator it would be difficult to get her off and she may end up with tube, etc. He is aware of it. In fact, the patient had made the decision not to have respirator or intubation after she went home from senior living. In any case, I advised DAIJA to call the hospital and tell Lynn the same thing and he did. The patient is now DNR. The patient is stable at the present time with systolic blood pressure more than 120 with pulse rate of 75/min with oxygen saturation 92%. The case is discussed with Cardiopulmonary tech in the night what to do. In the morning, the patient will have arterial blood gases, CBC, CMP with the nursing staff. Diagnosis: 1. Acute respiratory failure on chronic respiratory insufficiency with hypoxemia with severe chronic lung disease. 2. History of CHF. 3. Obesity. 4. c02 retention. 5. Dementia. Total time spent today was nearly 2 hours. Face to face for more than one hour. This should be coded as Critical Care for 1.5 to 2 hours of Critical care. The patient was also seen and examined with the nurse practitioner and plan of action was carried out. Plan and coordination of the patient's care discussed in the presence of nurse. DEVAN
--- NOTE | 2020-12-18 09:23 | DI ---
EXAM: CHEST FRONTAL VIEW HISTORY: Shortness of breath COMPARISON: 12/14/2020 FINDINGS: Cardiomegaly and atherosclerosis are again noted. Limited image quality in part secondary to body habitus and portable technique. There appears to be mild central vascular congestion. No v isible pleural fluid or pneumothorax. IMPRESSION: 1. Cardiomegaly and mild central vascular congestion.
--- NOTE | 2020-12-18 09:24 | PCM.PROG ---
Attending Provider: ATTENDING PROVIDER: Dr. FRENCH JACOBSON This patient is seen with Antoinette Martínez, Nurse Practitioner. DATE OF SERVICE: 12/18/20 SUBJECTIVE: This 80 year old /WHITE F was hospitalized 12/14/20. The patient is resting comfortably. She had a restless night up and down, couldn't sleep and was anxious. She wouldn't leave BIPAP on. Resting comfortably this morning. REVIEW OF SYSTEMS: CONSTITUTIONAL: No night sweats. No fatigue, malaise, lethargy. No fever or chills. HEENT: Eyes: No visual changes. No eye pain. No eye discharge. ENT: No runny nose. No epistaxis. No sinus pain. No odynophagia. No congestion. RESPIRATORY: No cough, no congestion. No hemoptysis. Shortness of breath. CARDIOVASCULAR: No angina symptoms. No CHF symptoms. No atypical chest pain for CAD. No palpitations. No orthopnea.. GASTROINTESTINAL: No abdominal pain. No nausea or vomiting. No diarrhea or constipation. No hematemesis. No hematochezia. GENITOURINARY: No urgency. No frequency. No dysuria. No hematuria. No obstructive symptoms. No discharge. No pain. No significant abnormal bleeding. MUSCULOSKELETAL: No musculoskeletal pain; no joint swelling. NEUROLOGICAL: Awake, alert, confusion. No headache. No neck pain. No syncope. No seizures. No dizziness. PSYCHIATRIC: Anxious. No depression. No suicidal thoughts. No homicidal thoughts. SKIN: No rash. No lesions. No wounds. ENDOCRINE: No unexplained weight loss. No weight gain. HEMATOLOGIC/LYMPHATIC: No anemia. No purpura. No petechiae. No prolonged or excessive bleeding. No palpable lymph nodes. PHYSICAL EXAMINATION: GENERAL: The patient is awake, alert and oriented to person only, lying in bed in no distress. VITAL SIGNS: Temperature 97.2 F, Pulse 97, Respiratory Rate 20, BP 131/76, Pulse Ox 94% HEENT: Head normocephalic, atraumatic. Eyes: Extraocular muscles are intact. Pupils are equal, round and reactive to light and accommodation. Ears: No lesions. Nose appeared normal. Throat: No exudate or erythema. NECK: Supple. No JVD, no carotid bruit. No lymphadenopathy or thyromegaly. LUNGS: Diminished breath sounds. Clear to auscultation. Percussion note normal. Chest symmetrical. HEART: S1, S2, no S3. No murmurs. No cyanosis or clubbing. No ascites. Pulses: Dorsalis pedis and posterior tibial pulses +1 to +2 both sides. ABDOMEN: Soft. Non-tender. Bowel sounds active. No CVA tenderness. No mass felt. EXTREMITIES: No edema. Full range of motion of all extremities, equal. NEUROLOGIC: No focal deficit. Cranial nerves II through XII are grossly intact. No headache. No double vision. SKIN: Not dry. Intact. Turgor-normal. LYMPHATIC: No palpable lymph nodes/no lymphedema. MUSCULOSKELETAL: Normal joints with no swelling. Muscle tone is normal. LAB REVIEW: 12/18/20 04:36 12/18/20 04:36 12/18/20 04:36: PT 15.2 H, INR 1.42 12/18/20 04:36: Sodium 133.0 L, Potassium 3.68, Chloride 89.1 L, Carbon Dioxide 39.0 H, Anion Gap 8.58, BUN 30.5 H, Creatinine 1.06, Estimated GFR (MDRD) 50.00, BUN/Creatinine Ratio 28.77, Glucose 298.5 H D, Calcium 7.91 L, Total Bilirubin 0.39, AST 23.3, ALT 21.1, Alkaline Phosphatase 50.9 L, Total Protein 5.67 L, Albumin 3.37 L, Globulin 2.30, Albumin/Globulin Ratio 1.46 12/18/20 04:36: WBC 11.06 H, RBC 3.57 L, Hgb 9.7 L, Hct 32.7 L, MCV 91.6, MCH 27.2, MCHC 29.7 L, RDW Coeff of Monique 16.3 H, Plt Count 172, Neutrophils % (Manual) 94.0 H, Lymphocytes % (Manual) 2.0 L, Monocytes % (Manual) 4.0, Anisocytosis Not present ASSESSMENT: Please see below. 1. Acute respiratory failure 2. COPD 3. Anemia 4. Dementia with behavioral disturbances 5. Atrial fibrillation PLAN: 1. Seroquel 25mg at night 2. Ativan 1mg TID scheduled 3. Zoloft 100mg daily 4. Repeat Chest x-ray Plan and coordination of the patient's care discussed in the presence of Home Care Scheduler and nurse. SCRIBED BY: JAQUELINE LINDER, Clinical Applications Manager scribed while in presence of service performed by Dr. Jacobson/Antoinette Martínez APRN on 12/18/20 ([id number])
[2020-12-18] MEDS: FERROUS SULFATE PO SCH (10:07)
[2020-12-18] MEDS: ZOLOFT PO SCH (10:07)
[2020-12-18] MEDS: ATIVAN PO SCH ×3 (10:07→20:38)
[2020-12-18] MEDS: TRIGLIDE PO SCH (10:07)
[2020-12-18] MEDS: NORVASC PO SCH (10:08)
[2020-12-18] MEDS: LOTENSIN PO SCH (10:08)
[2020-12-18] MEDS: PREDNISONE PO SCH ×2 (10:08→17:32)
[2020-12-18] MEDS: ARICEPT PO SCH (10:08)
[2020-12-18] MEDS: NEURONTIN PO SCH (10:08)
[2020-12-18] MEDS: NAMENDA PO SCH ×2 (10:08→20:39)
[2020-12-18] MEDS: ASTELIN 0.1% NAS SCH ×2 (10:09→20:40)
[2020-12-18] MEDS: CLARITIN PO SCH (10:09)
--- NOTE | 2020-12-18 10:48 | PN ---
DATE OF SERVICE: 12/16/20 SUBJECTIVE: 80-year-old female hospitalized with acute respiratory failure. Condition has improved remarkably. The patient's blood gases this morning showed p02 of 88 with pc02 of 65, pH of 7.41 with 96% saturation. On Venti-mask it was 45%. The patient feels a lot better. Her appetite has improved. REVIEW OF SYSTEMS: CONSTITUTIONAL: No night sweats. No fatigue, malaise, lethargy. No fever or chills. HEENT: Eyes: No visual changes. No eye pain. No eye discharge. ENT: No runny nose. No epistaxis. No sinus pain. No sore throat. No odynophagia. No congestion. RESPIRATORY: Mild cough. No hemoptysis. No shortness of breath. CARDIOVASCULAR: No angina symptoms. No CHF symptoms. No atypical chest pain for CAD. No palpitations. No PND. No orthopnea. GASTROINTESTINAL: No abdominal pain. No nausea or vomiting. No diarrhea or constipation. No hematemesis. No hematochezia. GENITOURINARY: No urgency. No frequency. No dysuria. No hematuria. No obstructive symptoms. No discharge. No pain. No significant abnormal bleeding. MUSCULOSKELETAL: No musculoskeletal pain; no joint swelling. NEUROLOGICAL: No headache. No neck pain. No syncope. No seizures. No dizziness. PSYCHIATRIC: Not anxious. No depression. No suicidal thoughts. No homicidal thoughts. SKIN: No rash. No lesions. No wounds. ENDOCRINE: No unexplained weight loss. No weight gain. HEMATOLOGIC/LYMPHATIC: No anemia. No purpura. No petechiae. No prolonged or excessive bleeding. No palpable lymph nodes. PHYSICAL EXAMINATION: VITAL SIGNS: Temperature 97.6, pulse 90, respiratory rate 16, BP 134/84, pulse ox 97% with venti mask. HEENT: Head normocephalic, atraumatic. Eyes: Extraocular muscles are intact. Pupils are equal, round and reactive to light and accommodation. Ears: No lesions. Nose appeared normal. Throat: No exudate or erythema. NECK: Supple. No JVD, no carotid bruit. No lymphadenopathy or thyromegaly. LUNGS: Decreased breath sounds. Good air entry. Clear to auscultation. Percussion note normal. Chest symmetrical. HEART: S1, S2, no S3. No murmurs. No cyanosis or clubbing. No ascites. Pulses: Dorsalis pedis and posterior tibial pulses +1 to +2 bilaterally. ABDOMEN: Soft. Nontender. Bowel sounds active. No CVA tenderness. No mass felt. EXTREMITIES: No edema. Full range of motion of all extremities, equal. NEUROLOGIC: Seems to be oriented to place and person. No focal deficit. Cranial nerves II through XII are grossly intact. No headache. No double vision. SKIN: Not dry. Intact. Turgor - normal. LYMPHATIC: No palpable lymph nodes/no lymphedema. MUSCULOSKELETAL: Normal joints with no swelling. Muscle tone is normal. The patient's son, DAIJA is present in the room. I explained to him what happened and her condition improved remarkably. DAIJA has come from [place] as the patient's status on admission was very critical. After discussion, both the patient and DAIJA agreed that the patient would be treated with Bipap, Venti-mask, steroids, antibiotics and not to use intubation or respirator. I explained to the patient and the son that the patient's condition is critical with very severely scarred lung with morbid obesity. Congestive heart failure is part of it with atrial fibrillation. The patient is to continue steroids, nebs and antibiotics. Will monitor oxygen saturation. The patient has agreed to go to the [facility] once she is discharged from here The son has reminded the patient that she needs to go there for 2 to 3 weeks. Initially she was not agreeable but as he is power of ip attorney for health, she is agreeable to go for 2 to 3 weeks for rehab. Condition stable. Prognosis is guarded. TIME SPENT: Extensive. Plan and coordination of the patient's care discussed in the presence of nurse. DEVAN
--- NOTE | 2020-12-18 13:50 | PN ---
DATE OF SERVICE: 12/17/20 SUBJECTIVE: 80-year-old white female hospitalized with acute respiratory failure. The patient has chronic respiratory insufficiency with hypoxemia. The patient is noncompliant, lives by herself, forgetful, demented. The patient is also being taken care of by granddaughter. The patient's condition has improved. The oxygen saturation and blood gases are a lot better with p02 of 71, pc02 of 60, pH 7.44 with 94% saturation on 45% Venti mask. She is oriented to place, person and time. REVIEW OF SYSTEMS: CONSTITUTIONAL: The patient feels weak, a little tired. No night sweats. No fatigue, malaise, lethargy. No fever or chills. HEENT: Eyes: No visual changes. No eye pain. No eye discharge. ENT: No runny nose. No epistaxis. No sinus pain. No sore throat. No odynophagia. No congestion. RESPIRATORY: No cough, no congestion. No hemoptysis. No shortness of breath. CARDIOVASCULAR: No angina symptoms. No CHF symptoms. No atypical chest pain for CAD. No palpitations. No PND. No orthopnea. GASTROINTESTINAL: No abdominal pain. No nausea or vomiting. No diarrhea or constipation. No hematemesis. No hematochezia. GENITOURINARY: No urgency. No frequency. No dysuria. No hematuria. No obstructive symptoms. No discharge. No pain. No significant abnormal bleeding. MUSCULOSKELETAL: No musculoskeletal pain; no joint swelling. NEUROLOGICAL: No headache. No neck pain. No syncope. No seizures. No dizziness. PSYCHIATRIC: Not anxious. No depression. No suicidal thoughts. No homicidal thoughts. SKIN: No rash. No lesions. No wounds. ENDOCRINE: No unexplained weight loss. No weight gain. HEMATOLOGIC/LYMPHATIC: No anemia. No purpura. No petechiae. No prolonged or excessive bleeding. No palpable lymph nodes. PHYSICAL EXAMINATION: VITAL SIGNS: Temperature 97.8, pulse 100, respiratory rate 20, blood pressure 120/80, pulse ox 94%. HEENT: Head normocephalic, atraumatic. Eyes: Extraocular muscles are intact. Pupils are equal, round and reactive to light and accommodation. Ears: No lesions. Nose appeared normal. Throat: No exudate or erythema. NECK: Supple. No JVD, no carotid bruit. No lymphadenopathy or thyromegaly. LUNGS: Decreased breath sounds but clear to auscultation. Percussion note normal. Chest symmetrical. HEART: S1, S2, no S3. No murmurs. No cyanosis or clubbing. No ascites. Pulses: Dorsalis pedis and posterior tibial pulses +1 to +2 bilaterally. ABDOMEN: Soft. Nontender. Bowel sounds active. No CVA tenderness. No mass felt. EXTREMITIES: No edema. Full range of motion of all extremities, equal. NEUROLOGIC: No focal deficit. Cranial nerves II through XII are grossly intact. No headache. No double vision. SKIN: Not dry. Intact. Turgor - normal. LYMPHATIC: No palpable lymph nodes/no lymphedema. MUSCULOSKELETAL: Normal joints with no swelling. Muscle tone is normal. LABS: Hemoglobin 10.1, hematocrit 34, WBC 10,000, normal differential. Creatinine 0.9, BUN 30, potassium 3.8, glucose 368. ASSESSMENT: 1. Respiratory failure seems to be under control. 2. Acute bronchitis symptoms with bilateral pneumonia seems to be under control. 3. Hyperglycemia from steroids, IV, will change it to p.o. 4. Chronic anemia. 5. CHF under control. 6. Atrial fibrillation with practically normal ventricular response, stable. PLAN: 1. Increase the Coumadin dose to 6 mg, extra dose today. INR is still 1.27 in spite of a couple of extra doses. 2. Discontinue IV Solu-Cortef because of the patient's severe hyperglycemia. She is on sliding scale. 3. Continue nebs. 4. Continue IV antibiotics. 5. Continue Venti-mask. CONDITION: Stable. Again, was explained about the fact that she has to go to the [facility] for [facility] and she has agreed to go in the presence of DAIJA, her son. In fact, DAIJA is the one who insists that she has to go to the sn[facility]. TIME SPENT: More than 30 minutes. Plan and coordination of the patient's care discussed in the presence of nurse. DEVAN
[2020-12-18] MEDS ORDERED: COUMADIN PO ONE (17:00)
[2020-12-18] MEDS: COUMADIN PO SCH (17:31)
[2020-12-18] MEDS: MEVACOR PO SCH (17:32)
[2020-12-18] MEDS: SEROQUEL PO SCH (20:38)
[2020-12-18] MEDS: ROCEPHIN 1 GM/50 ML D5W 1 GM/50 ML BAG IV SCH (20:41)
[2020-12-19] MEDS: DUONEB NEB SCH ×4 (04:35→19:29)
[2020-12-19] MEDS: PULMICORT 1 MG/2 ML NEB SCH ×2 (04:35→19:30)
[2020-12-19 05:13] LABS: HEMATOCRIT 34.4 % (37.0-47.0); HEMOGLOBIN 9.9 g/dl (12.0-16.0); MEAN CORPUSCULAR HEMOGLOBIN 26.5 pg (27.0-31.0); MEAN CORPUSCULAR HGB CONC 28.8 (31.8-35.4); PLATELET COUNT 166 10^3/uL (140-440); RDW COEFFICIENT OF VARIATION 16.3 % (11.6-14.8); RED BLOOD COUNT 3.74 10^6/ul (4.20-5.40); WHITE BLOOD COUNT 8.68 K/ul (4.6-10.2)
[2020-12-19 05:23] LABS: PROTHROMBIN TIME 14.2 SEC (9.3-11.0)
[2020-12-19 05:27] LABS: ALANINE AMINOTRANSFERASE 23.4 U/L (0-35); ALBUMIN 3.27 g/dL (3.5-5.0); ALKALINE PHOSPHATASE 50.3 U/L (53-141); ASPARTATE AMINO TRANSFERASE 20.5 U/L (14-36); BILIRUBIN,TOTAL 0.27 mg/dL (0.2-1.3); BLOOD UREA NITROGEN 31.4 mg/dL (7-17); CALCIUM 7.93 mg/dL (8.4-10.2); CREATININE 0.98 mg/dL (0.60-1.30); GLUCOSE 253.4 mg/dL (74-106); POTASSIUM 4.04 mmol/L (3.5-5.1); SODIUM 133.6 mmol/L (134.5-145); TOTAL PROTEIN 5.65 g/dL (6.3-8.2)
[2020-12-19 05:32] LABS: CARBON DIOXIDE 39.9 mmol/L (22-30.0)
[2020-12-19 05:41] LABS: ANISOCYTOSIS 2+ (NOT PRESENT); HYPOCHROMASIA 2+ (NOT PRESENT)
[2020-12-19] MEDS: PRILOSEC PO SCH ×2 (05:59→16:27)
[2020-12-19] MEDS: HUMULIN R SUBCUT PRN ×4 (06:00→20:35)
[2020-12-19] MEDS: LASIX IVP SCH (06:39)
[2020-12-19] MEDS: NEURONTIN PO SCH (09:14)
[2020-12-19] MEDS: FERROUS SULFATE PO SCH (09:14)
[2020-12-19] MEDS: NAMENDA PO SCH ×2 (09:15→20:36)
[2020-12-19] MEDS: ARICEPT PO SCH (09:15)
[2020-12-19] MEDS: TRIGLIDE PO SCH (09:16)
[2020-12-19] MEDS: ZOLOFT PO SCH (09:16)
[2020-12-19] MEDS: NORVASC PO SCH (09:16)
[2020-12-19] MEDS: LOTENSIN PO SCH (09:17)
[2020-12-19] MEDS: ATIVAN PO SCH ×3 (09:17→20:36)
[2020-12-19] MEDS: PREDNISONE PO SCH ×2 (09:17→16:27)
[2020-12-19] MEDS: ASTELIN 0.1% NAS SCH ×2 (09:18→20:34)
[2020-12-19] MEDS: CLARITIN PO SCH (09:18)
--- NOTE | 2020-12-19 10:02 | PCM.PROG ---
Attending Provider: ATTENDING PROVIDER: Dr. FRENCH EID This patient is seen with Antoinette Martínez, Nurse Practitioner. DATE OF SERVICE: 12/19/20 SUBJECTIVE: This 80 year old /WHITE F was hospitalized 12/14/20. The patient is resting comfortably. She rested better last night. Ativan and Seroquel help with anxiety. She was able to get up in the chair yesterday and shower. Did well with nasal cannula yesterday then back on Venturi mask at night. REVIEW OF SYSTEMS: CONSTITUTIONAL: No night sweats. No fatigue, malaise, lethargy. No fever or chills. Weakness. HEENT: Eyes: No visual changes. No eye pain. No eye discharge. ENT: No runny nose. No epistaxis. No sinus pain. No odynophagia. No congestion. RESPIRATORY: No cough, no congestion. No hemoptysis. Shortness of breath. CARDIOVASCULAR: No angina symptoms. No CHF symptoms. No atypical chest pain for CAD. No palpitations. No orthopnea.. GASTROINTESTINAL: No abdominal pain. No nausea or vomiting. No diarrhea or constipation. No hematemesis. No hematochezia. GENITOURINARY: No urgency. No frequency. No dysuria. No hematuria. No obstructive symptoms. No discharge. No pain. No significant abnormal bleeding. MUSCULOSKELETAL: No musculoskeletal pain; no joint swelling. NEUROLOGICAL: Awake, alert, confusion. No headache. No neck pain. No syncope. No seizures. No dizziness. PSYCHIATRIC: Not anxious. No depression. No suicidal thoughts. No homicidal thoughts. SKIN: No rash. No lesions. No wounds. ENDOCRINE: No unexplained weight loss. No weight gain. HEMATOLOGIC/LYMPHATIC: No anemia. No purpura. No petechiae. No prolonged or excessive bleeding. No palpable lymph nodes. PHYSICAL EXAMINATION: GENERAL: The patient is awake, alert and oriented to person and place not time, lying in bed in no distress. VITAL SIGNS: Temperature 97.5 F, Pulse 110, Respiratory Rate 20, BP 140/79, Pulse Ox 96% HEENT: Head normocephalic, atraumatic. Eyes: Extraocular muscles are intact. Pupils are equal, round and reactive to light and accommodation. Ears: No lesions. Nose appeared normal. Throat: No exudate or erythema. NECK: Supple. No JVD, no carotid bruit. No lymphadenopathy or thyromegaly. LUNGS: Diminished breath sounds. Clear to auscultation. Percussion note normal. Chest symmetrical. HEART: S1, S2, no S3. No murmurs. No cyanosis or clubbing. No ascites. Pulses: Dorsalis pedis and posterior tibial pulses +1 to +2 both sides. ABDOMEN: Soft. Non-tender. Bowel sounds active. No CVA tenderness. No mass felt. EXTREMITIES: No edema. Full range of motion of all extremities, equal. NEUROLOGIC: No focal deficit. Cranial nerves II through XII are grossly intact. No headache. No double vision. SKIN: Not dry. Intact. Turgor-normal. LYMPHATIC: No palpable lymph nodes/no lymphedema. MUSCULOSKELETAL: Normal joints with no swelling. Muscle tone is normal. LAB REVIEW: 12/19/20 04:31 12/19/20 04:31 12/19/20 04:31: PT 14.2 H, INR 1.34 12/19/20 04:31: Sodium 133.6 L, Potassium 4.04, Chloride 89.0 L, Carbon Dioxide 39.9 H, Anion Gap 8.74, BUN 31.4 H, Creatinine 0.98, Estimated GFR (MDRD) 55.00, BUN/Creatinine Ratio 32.04, Glucose 253.4 H, Calcium 7.93 L, Total Bilirubin 0.27, AST 20.5, ALT 23.4, Alkaline Phosphatase 50.3 L, Total Protein 5.65 L, Albumin 3.27 L, Globulin 2.38, Albumin/Globulin Ratio 1.37 12/19/20 04:31: WBC 8.68, RBC 3.74 L, Hgb 9.9 L, Hct 34.4 L, MCV 92.0, MCH 26.5 L, MCHC 28.8 L, RDW Coeff of Monique 16.3 H, Plt Count 166, Neutrophils % (Manual) 87.0 H, Lymphocytes % (Manual) 9.0 L, Monocytes % (Manual) 4.0, Hypochromasia 2+, Anisocytosis 2+ 12/18/20 05:25: Puncture Site R rad, Base Excess 21.6 H, O2 Saturation 95.5, ABG pH 7.39, ABG pCO2 77.0 H, ABG pO2 79.0 L, ABG HCO3 46.6 H, ABG Total CO2 49.0 H, Adam Test +, Hemoglobin 1.0, Oxyhemoglobin 93.8 L, Carboxyhemoglobin 2.8 H, Total Hemoglobin 9.9 L, O2 Delivery Device V mask, FiO2 % 40.0 ASSESSMENT: Please see below. 1. Acute respiratory failure 2. COPD 2. Atrial fibrillation PLAN: 1. Discontinue IV Lasix 2. Discontinue Gill 3. Lasix 40mg PO daily 4. 12mg Coumadin today Plan and coordination of the patient's care discussed in the presence of Route Sales Associate and nurse. SCRIBED BY: Cassia DELGADO scribed while in presence of service performed by Dr. Eid/Antoinette Martínez APRN on 12/19/20 ([id number])
[2020-12-19] MEDS: PROAIR HFA (SINGLE PATIENT USE) IH PRN (14:58)
[2020-12-19] MEDS: COUMADIN PO SCH (16:22)
[2020-12-19] MEDS: MEVACOR PO SCH (16:22)
[2020-12-19] MEDS ORDERED: COUMADIN PO SCH (17:00)
[2020-12-19] MEDS: SEROQUEL PO SCH (20:36)
[2020-12-19] MEDS ORDERED: VISTARIL PO ONE (23:12)
[2020-12-20] MEDS: DUONEB NEB SCH ×4 (05:25→19:40)
[2020-12-20] MEDS: PULMICORT 1 MG/2 ML NEB SCH ×2 (05:25→19:40)
[2020-12-20 05:44] LABS: HEMATOCRIT 35.2 % (37.0-47.0); HEMOGLOBIN 10.3 g/dl (12.0-16.0); MEAN CORPUSCULAR HEMOGLOBIN 26.9 pg (27.0-31.0); MEAN CORPUSCULAR HGB CONC 29.3 (31.8-35.4); MEAN CORPUSCULAR VOLUME 91.9 fl (81.0-99.0); PLATELET COUNT 153 10^3/uL (140-440); RDW COEFFICIENT OF VARIATION 16.1 % (11.6-14.8); RED BLOOD COUNT 3.83 10^6/ul (4.20-5.40); WHITE BLOOD COUNT 8.15 K/ul (4.6-10.2)
[2020-12-20 05:48] LABS: ALBUMIN 3.57 g/dL (3.5-5.0); ALKALINE PHOSPHATASE 53.1 U/L (53-141); ASPARTATE AMINO TRANSFERASE 23.4 U/L (14-36); BILIRUBIN,TOTAL 0.3 mg/dL (0.2-1.3); BLOOD UREA NITROGEN 27.8 mg/dL (7-17); CALCIUM 8.49 mg/dL (8.4-10.2); CHLORIDE 90.3 mmol/L (98-107); CREATININE 0.97 mg/dL (0.60-1.30); GLUCOSE 201.6 mg/dL (74-106); SODIUM 135.2 mmol/L (134.5-145)
[2020-12-20 05:54] LABS: CARBON DIOXIDE 39.3 mmol/L (22-30.0)
[2020-12-20 05:58] LABS: ANISOCYTOSIS NOT PRESENT (NOT PRESENT)
[2020-12-20] MEDS: HUMULIN R SUBCUT PRN ×4 (06:11→20:33)
[2020-12-20] MEDS: PRILOSEC PO SCH ×2 (06:13→16:33)
[2020-12-20] MEDS: LASIX TAB PO SCH (06:13)
[2020-12-20] MEDS: TRIGLIDE PO SCH (08:40)
[2020-12-20] MEDS: ASTELIN 0.1% NAS SCH (08:40)
[2020-12-20] MEDS: ZOLOFT PO SCH (08:40)
[2020-12-20] MEDS: LOTENSIN PO SCH (08:40)
[2020-12-20] MEDS: ATIVAN PO SCH ×3 (08:40→20:29)
[2020-12-20] MEDS: FERROUS SULFATE PO SCH (08:41)
[2020-12-20] MEDS: PREDNISONE PO SCH ×2 (08:41→16:33)
[2020-12-20] MEDS: ARICEPT PO SCH (08:41)
[2020-12-20] MEDS: NAMENDA PO SCH ×2 (08:41→20:33)
[2020-12-20] MEDS: NORVASC PO SCH (08:41)
[2020-12-20] MEDS: CLARITIN PO SCH (08:41)
[2020-12-20] MEDS: NEURONTIN PO SCH (08:41)
--- NOTE | 2020-12-20 08:57 | HP ---
DATE OF SERVICE: 12/14/20 HISTORY OF PRESENT ILLNESS: 80-year-old white female who was brought to the emergency room from [facility] with hypoglycemia, shortness of breath per the intermediate. Sugar was 38, 02 sat was 84% on 2L. She had decreased alertness. 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 Palmer and Dr. Burch Dilated cardiomyopathy Atrial fibrillation Recurrent right upper lobe pneumonia Chronic anemia Dementia with behavioral disturbances Anxiety Long-term anticoagulant on Coumadin Diabetes mellitus type 2 Obesity Chronic kidney disease, Stage 2 Anxiety Diverticulosis Degenerative disk disease Dyslipidemia Macular degeneration Polyarthritis History of noncompliance with lifestyle, medications, diet and followup PAST SURGICAL HISTORY: Bilateral total knee replacement by Librado Eid M.D. Colonoscopy in [address] Dugan for anemia Status post history of back surgery Last heart cath [place] [address] Knowles REVIEW OF SYSTEMS: CONSTITUTIONAL: Positive for lethargy, weakness. No night sweats. No fatigue, malaise. No fever or chills. HEENT: Eyes: No visual changes. No eye pain. No eye discharge. ENT: No runny nose. No epistaxis. No sinus pain. No sore throat. No odynophagia. No ear pain. No congestion. RESPIRATORY: No cough, no congestion. No hemoptysis. Shortness of breath. CARDIOVASCULAR: No angina symptoms. No CHF symptoms. No atypical chest pain for CAD. No palpitations. No PND. No orthopnea. GASTROINTESTINAL: No abdominal pain. No nausea or vomiting. No diarrhea or constipation. No hematemesis. No hematochezia. GENITOURINARY: No urgency. No frequency. No dysuria. No hematuria. No obstructive symptoms. No discharge. No pain. No significant abnormal bleeding. MUSCULOSKELETAL: No musculoskeletal pain. No joint swelling. No arthritis. NEUROLOGICAL: Positive for confusion. No headache. No neck pain. No syncope. No seizures. No dizziness. PSYCHIATRIC: Not anxious. No depression. No suicidal thoughts. No homicidal thoughts. SKIN: No rash. No lesions. No wounds. ENDOCRINE: No unexplained weight loss. No weight gain. HEMATOLOGIC/LYMPHATIC: No anemia. No purpura. No petechiae. No prolonged or excessive bleeding. No palpable lymph nodes. MEDICATIONS: Furosemide 20 mg p.o. q.d a.c. Fenofibrate 54 mg p.o. daily Donepezil 10 mg p.o. daily Memantine (Namenda) 10 mg p.o. b.i.d Lovastatin 80 mg p.o. q.p.m. Omeprazole 20 mg p.o. b.i.d. Sertraline 50 mg p.o. q.day Vitamin C, P-uvpe-Usjmlo-Lutein-Zeaxan (Preservision AREDS-2) one tab p.o. bedtime Gabapentin 300 mg p.o. daily Benazepril 40 mg p.o. daily Insulin Glargine U-300 conc 50 unit subcut bedtime Loratadine 10 mg p.o. daily Azelastine two spray intranasal b.i.d. Albuterol one puff INH q.6-8H p.r.n. Warfarin 7 mg p.o. q.p.m. Amlodipine 5 mg p.o. daily Budesonide 0.5 mg INH b.i.d. Albuterol 2.5 mg INH q.i.d. Ferrous Sulfate 325 mg p.o. daily Donepezil 10 mg p.o. daily ALLERGIES: NKDA PHYSICAL EXAMINATION: GENERAL: Diminished alertness. Oriented to person only. VITAL SIGNS: Temperature 97.3, heart rate 99, respirations 20, blood pressure 130/71, pulse ox 89%. HEENT: Head normocephalic, atraumatic. Eyes: Extraocular muscles are intact. Pupils are equal, round and reactive to light and accommodation. Ears: No lesions. Nose appeared normal. Throat: No exudate or erythema. NECK: Supple. No JVD, no carotid bruit. No lymphadenopathy or thyromegaly. LUNGS: Bilateral rhonchi. Diminished breath sounds. Clear to auscultation. Percussion note normal. Chest symmetrical. HEART: S1, S2, no S3. No murmur. No cyanosis or clubbing. No ascites. Pulses: Dorsalis pedis and posterior tibial pulses +1 to +2 bilaterally. ABDOMEN: Soft. Nontender. Bowel sounds active. No CVA tenderness. No mass felt. EXTREMITIES: No edema. Full range of motion of all extremities, equal. NEUROLOGIC: No focal deficit. Cranial nerves II through XII are grossly intact. No headache, no double vision or headache. SKIN: Not dry. Intact. Turgor - normal. LYMPHATIC: No palpable lymph nodes/no lymphedema. MUSCULOSKELETAL: Normal joints with no swelling. Muscle tone is normal. LAB/IMAGING: White count 7.74, hemoglobin 10.7, hematocrit 38.1, platelets 205. Sodium 138, potassium 4.5, BUN 21, creatinine 1.15, glucose 128. BUN 21, creatinine 1.15, AST 24, ALT 18. Chest x-ray shows bibasilar atelectasis and/or pneumonia with bilateral pleural effusions, cardiomegaly with pulmonary vasculature congestion. ASSESSMENT: 1. ACUTE RESPIRATORY FAILURE 2. HYPOGLYCEMIA 3. GENERALIZED WEAKNESS 4. END-STAGE COPD PLAN: 1. We will admit. 2. Routine telemetry orders. 3. CBC, CMP daily. 4. ABGs on room air now. Oxygen at 1 to 2L as needed. 5. Sliding scale for insulin. 6. INR daily. 7. Continue home medications. 8. Rocephin 1 gm IV daily. 9. Lasix 40 mg IV times one dose. 10. Continue home medications. 11. Solu-Cortef 125 mg q.8hr. 12. Will follow closely. TIME SPENT: More than 70 minutes. MTDD
[2020-12-20] MEDS: KEFLEX PO SCH ×2 (12:06→20:33)
--- NOTE | 2020-12-20 13:37 | PN ---
DATE OF SERVICE: 12/18/2020 SUBJECTIVE: The patient was seen and examined with the Nurse Practitioner. The patient is somewhat sleepy but the blood gasses are good and a lot better. The patient is to go to the detention per [employer] [facility] [employer] [facility]. The patient is more or less confused. She doesn't remember much about day to day occurrences or kind plan we have for her future. She gets mixed up. Her condition is better as far as respiratory status is concern she doesn't have any CHF. The patient has multiple medical problems like atrial fibrillation, CHF, dilated cardiomyopathy, diabetes mellitus which has been poorly controlled with her choice with BMI more than 40. She is morbidly obese. She eats a lot at home with extremely poor lungs with respiratory system TIME SPENT: More than 30 minutes. Plan and coordination of the patient's care discussed in the presence of nurse. DEVAN
[2020-12-20] MEDS: MEVACOR PO SCH (16:33)
[2020-12-20] MEDS: PROAIR HFA (SINGLE PATIENT USE) IH PRN (16:34)
[2020-12-20] MEDS ORDERED: COUMADIN PO SCH (17:00)
[2020-12-20] MEDS: VISTARIL PO PRN (20:33)
[2020-12-20] MEDS: SEROQUEL PO SCH (20:33)
[2020-12-21] MEDS: ASTELIN 0.1% NAS SCH ×3 (00:04→20:16)
[2020-12-21] MEDS: DUONEB NEB SCH ×4 (04:30→20:00)
[2020-12-21] MEDS: PULMICORT 1 MG/2 ML NEB SCH ×2 (04:30→20:00)
[2020-12-21 05:44] LABS: BASOPHILS % (AUTO) 0.1 % (0.0-3.0); EOSINOPHILS % (AUTO) 0.3 % (0.0-7.0); HEMATOCRIT 34.9 % (37.0-47.0); HEMOGLOBIN 10.2 g/dl (12.0-16.0); IMMATURE GRANULOCYTE % (AUTO) 0.5 % (0.0-5.0); LYMPHOCYTES # (AUTO) 0.3 K/uL (0.60-3.4); LYMPHOCYTES % (AUTO) 3.8 (10.0-50.0); MEAN CORPUSCULAR HGB CONC 29.2 (31.8-35.4); MEAN CORPUSCULAR VOLUME 92.3 fl (81.0-99.0); MONOCYTES # (AUTO) 0.6 K/uL (0.4-2.0); MONOCYTES % (AUTO) 8.2 (0-10); NEUTROPHILS # (AUTO) 6.6 K/ul (2.0-6.9); NEUTROPHILS % (AUTO) 87.1 % (42.2-75.2); PLATELET COUNT 153 10^3/uL (140-440); RDW COEFFICIENT OF VARIATION 16.1 % (11.6-14.8); RED BLOOD COUNT 3.78 10^6/ul (4.20-5.40); WHITE BLOOD COUNT 7.55 K/ul (4.6-10.2)
[2020-12-21 05:55] LABS: PROTHROMBIN TIME 16.1 SEC (9.3-11.0)
[2020-12-21] MEDS: HUMULIN R SUBCUT PRN ×3 (06:13→20:13)
[2020-12-21] MEDS: LASIX TAB PO SCH (06:13)
[2020-12-21] MEDS: PRILOSEC PO SCH ×2 (06:13→17:27)
[2020-12-21 06:42] LABS: ALANINE AMINOTRANSFERASE 28.6 U/L (0-35); ALBUMIN 3.29 g/dL (3.5-5.0); ALKALINE PHOSPHATASE 45.4 U/L (53-141); ASPARTATE AMINO TRANSFERASE 27.2 U/L (14-36); BILIRUBIN,TOTAL 0.48 mg/dL (0.2-1.3); BLOOD UREA NITROGEN 26.2 mg/dL (7-17); CALCIUM 8.25 mg/dL (8.4-10.2); CHLORIDE 89.2 mmol/L (98-107); CREATININE 0.91 mg/dL (0.60-1.30); GLUCOSE 176.1 mg/dL (74-106); POTASSIUM 4.29 mmol/L (3.5-5.1); SODIUM 134.8 mmol/L (134.5-145); TOTAL PROTEIN 5.69 g/dL (6.3-8.2)
[2020-12-21 06:49] LABS: CARBON DIOXIDE 42.5 mmol/L (22-30.0)
[2020-12-21] MEDS: NEURONTIN PO SCH (09:06)
[2020-12-21] MEDS: ATIVAN PO SCH ×3 (09:06→20:12)
[2020-12-21] MEDS: ARICEPT PO SCH (09:07)
[2020-12-21] MEDS: KEFLEX PO SCH ×2 (09:07→20:12)
[2020-12-21] MEDS: LOTENSIN PO SCH (09:07)
[2020-12-21] MEDS: ZOLOFT PO SCH (09:07)
[2020-12-21] MEDS: TRIGLIDE PO SCH (09:07)
[2020-12-21] MEDS: NORVASC PO SCH (09:07)
[2020-12-21] MEDS: NAMENDA PO SCH ×2 (09:07→20:13)
[2020-12-21] MEDS: FERROUS SULFATE PO SCH (09:07)
[2020-12-21] MEDS: CLARITIN PO SCH (09:07)
[2020-12-21] MEDS: PREDNISONE PO SCH ×2 (09:07→17:27)
[2020-12-21] MEDS ORDERED: DECADRON IM ONE (09:24)
--- NOTE | 2020-12-21 09:47 | PCM.PROG ---
Attending Provider: ATTENDING PROVIDER: Dr. FRENCH JACOBSON This patient is seen with Antoinette Martínez, Nurse Practitioner. DATE OF SERVICE: 12/21/20 SUBJECTIVE: This 80 year old /WHITE F was hospitalized 12/14/20. The patient is resting comfortably. She has been on nasal cannula for the past two days, still having cough. She is resting better and eating well. REVIEW OF SYSTEMS: CONSTITUTIONAL: Weakness. No night sweats. No fatigue, malaise, lethargy. No fever or chills. HEENT: Eyes: No visual changes. No eye pain. No eye discharge. ENT: No runny nose. No epistaxis. No sinus pain. No odynophagia. No congestion. RESPIRATORY: Cough and wheezing. No hemoptysis. No shortness of breath. CARDIOVASCULAR: No angina symptoms. No CHF symptoms. No atypical chest pain for CAD. No palpitations. No orthopnea.. GASTROINTESTINAL: No abdominal pain. No nausea or vomiting. No diarrhea or constipation. No hematemesis. No hematochezia. GENITOURINARY: No urgency. No frequency. No dysuria. No hematuria. No obstructive symptoms. No discharge. No pain. No significant abnormal bleeding. MUSCULOSKELETAL: No musculoskeletal pain; no joint swelling. NEUROLOGICAL: Awake, alert, confusion. No headache. No neck pain. No syncope. No seizures. No dizziness. PSYCHIATRIC: Not anxious. No depression. No suicidal thoughts. No homicidal thoughts. SKIN: No rash. No lesions. No wounds. ENDOCRINE: No unexplained weight loss. No weight gain. HEMATOLOGIC/LYMPHATIC: No anemia. No purpura. No petechiae. No prolonged or excessive bleeding. No palpable lymph nodes. PHYSICAL EXAMINATION: GENERAL: The patient is awake, alert and oriented, confused lying/sitting in bed in no distress. VITAL SIGNS: Temperature 98 F, Pulse 100, Respiratory Rate 20, BP 161/85, Pulse Ox 90% HEENT: Head normocephalic, atraumatic. Eyes: Extraocular muscles are intact. Pupils are equal, round and reactive to light and accommodation. Ears: No lesions. Nose appeared normal. Throat: No exudate or erythema. NECK: Supple. No JVD, no carotid bruit. No lymphadenopathy or thyromegaly. LUNGS: Diminished breath sounds, bilateral inspiratory and expiratory wheezing. Percussion note normal. Chest symmetrical. HEART: S1, S2, no S3. No murmurs. No cyanosis or clubbing. No ascites. Pulses: Dorsalis pedis and posterior tibial pulses +1 to +2 both sides. ABDOMEN: Soft. Non-tender. Bowel sounds active. No CVA tenderness. No mass felt. EXTREMITIES: No edema. Full range of motion of all extremities, equal. NEUROLOGIC: No focal deficit. Cranial nerves II through XII are grossly intact. No headache. No double vision. SKIN: Not dry. Intact. Turgor-normal. LYMPHATIC: No palpable lymph nodes/no lymphedema. MUSCULOSKELETAL: Normal joints with no swelling. Muscle tone is normal. LAB REVIEW: 12/21/20 04:38 12/21/20 04:38 12/21/20 04:38: PT 16.1 H, INR 1.51 12/21/20 04:38: Sodium 134.8, Potassium 4.29, Chloride 89.2 L, Carbon Dioxide 42.5 H*, Anion Gap 7.39, BUN 26.2 H, Creatinine 0.91, Estimated GFR (MDRD) 60.00, BUN/Creatinine Ratio 28.79, Glucose 176.1 H, Calcium 8.25 L, Total Bilirubin 0.48, AST 27.2, ALT 28.6, Alkaline Phosphatase 45.4 L, Total Protein 5.69 L, Albumin 3.29 L, Globulin 2.40, Albumin/Globulin Ratio 1.37 12/21/20 04:38: WBC 7.55, RBC 3.78 L, Hgb 10.2 L, Hct 34.9 L, MCV 92.3, MCH 27.0, MCHC 29.2 L, RDW Coeff of Monique 16.1 H, Plt Count 153, Immature Gran % (Auto) 0.5, Neut % (Auto) 87.1 H, Lymph % (Auto) 3.8 L, [place] % (Auto) 8.2, Eos % (Auto) 0.3, Baso % (Auto) 0.1, Neut # (Auto) 6.6, Lymph # (Auto) 0.3 L, [place] # (Auto) 0.6, Eos # (Auto) 0.0, Baso # (Auto) 0.0, Immature Gran # (Auto) 0.0 ASSESSMENT: Please see below. 1. Respiratory failure. 2. End-stage COPD. 3. Dementia with behavioral disturbance. 4. Hypertension. 5. Atrial fibrillation. PLAN: 1. 1 cc Decadron IM today. 2. ABG on 2L. Plan and coordination of the patient's care discussed in the presence of Cutter Alumin[employer] Sheet and nurse. CONDITION: Stable SCRIBED BY: SERVANDO CANALES Cosmetics Supervisor scribed while in presence of service performed by Dr. Jacobson/Antoinette Martínez APRN on 12/21/20 ([id number])
[2020-12-21 12:44] LABS: BEecf 24.8 (-2.0-3.0)
[2020-12-21 12:45] LABS: COHb 3.4 (0.5-1.5); HCO3 49.6 (21-28); TCO2 52.1 (19-24); sO2 87.6 % (94-98); tHb 11.7 g/dl (11.7-17.4)
[2020-12-21 12:46] LABS: ABG O2 HGB 87.5 % (95-100)
[2020-12-21] MEDS ORDERED: COUMADIN PO ONE (17:00)
[2020-12-21] MEDS: COUMADIN PO SCH (17:28)
[2020-12-21] MEDS: MEVACOR PO SCH (17:28)
[2020-12-21] MEDS: VISTARIL PO PRN (20:12)
[2020-12-21] MEDS: SEROQUEL PO SCH (20:13)
[2020-12-22] MEDS: PULMICORT 1 MG/2 ML NEB SCH ×2 (04:35→20:52)
[2020-12-22] MEDS: DUONEB NEB SCH ×4 (04:35→20:50)
[2020-12-22 05:27] LABS: HEMOGLOBIN 10.2 g/dl (12.0-16.0); IMMATURE GRANULOCYTE % (AUTO) 0.5 % (0.0-5.0); LYMPHOCYTES # (AUTO) 0.3 K/uL (0.60-3.4); LYMPHOCYTES % (AUTO) 4.9 (10.0-50.0); MEAN CORPUSCULAR HEMOGLOBIN 26.6 pg (27.0-31.0); MEAN CORPUSCULAR HGB CONC 29.1 (31.8-35.4); MEAN CORPUSCULAR VOLUME 91.1 fl (81.0-99.0); MONOCYTES # (AUTO) 0.7 K/uL (0.4-2.0); MONOCYTES % (AUTO) 10.7 (0-10); NEUTROPHILS # (AUTO) 5.3 K/ul (2.0-6.9); NEUTROPHILS % (AUTO) 83.9 % (42.2-75.2); PLATELET COUNT 146 10^3/uL (140-440); RDW COEFFICIENT OF VARIATION 16.1 % (11.6-14.8); RED BLOOD COUNT 3.84 10^6/ul (4.20-5.40); WHITE BLOOD COUNT 6.36 K/ul (4.6-10.2)
[2020-12-22 05:39] LABS: PROTHROMBIN TIME 17.1 SEC (9.3-11.0)
[2020-12-22 05:42] LABS: ALANINE AMINOTRANSFERASE 25.1 U/L (0-35); ALBUMIN 3.22 g/dL (3.5-5.0); ALKALINE PHOSPHATASE 49.1 U/L (53-141); ASPARTATE AMINO TRANSFERASE 24.3 U/L (14-36); BILIRUBIN,TOTAL 0.45 mg/dL (0.2-1.3); CALCIUM 8.14 mg/dL (8.4-10.2); CHLORIDE 88.6 mmol/L (98-107); CREATININE 0.94 mg/dL (0.60-1.30); GLUCOSE 204.2 mg/dL (74-106); POTASSIUM 4.16 mmol/L (3.5-5.1); SODIUM 134.4 mmol/L (134.5-145); TOTAL PROTEIN 5.63 g/dL (6.3-8.2)
[2020-12-22 05:51] LABS: CARBON DIOXIDE 42.1 mmol/L (22-30.0)
[2020-12-22] MEDS: PRILOSEC PO SCH ×2 (06:19→17:24)
[2020-12-22] MEDS: LASIX TAB PO SCH (06:19)
[2020-12-22] MEDS: HUMULIN R SUBCUT PRN ×4 (06:20→21:30)
--- NOTE | 2020-12-22 08:00 | PN ---
DATE OF SERVICE: 12/19/20 SUBJECTIVE: 80-year-old white female hospitalized with respiratory failure on top of respiratory insufficiency. The patient's condition more or less has stabilized. She seemed to be oriented to time, place and person. She is still reluctant to go to the [facility], unstable. The patient was seen and examined with the nurse practitioner. We are going to continue antibiotics, steroids and nebs. TIME SPENT: More than 30 minutes. Plan and coordination of the patient's care discussed in the presence of nurse. DEVAN
[2020-12-22] MEDS ORDERED: LASIX IVP STA (08:37)
--- NOTE | 2020-12-22 08:51 | PN ---
DATE OF SERVICE: 12/20/20 SUBJECTIVE: 80-year-old white female hospitalized with respiratory failure on top of respiratory insufficiency. The patient is on home oxygen. She has multiple medical problems like CHF, atrial fibrillation, uncontrolled diabetes which is her choice, morbid obesity, chronic lung disease, chronic anemia. The patient has improvement in her status overall with oxygen saturation staying more or less 90% at rest with oxygen. Venti-Mask at night with nasal cannula during the daytime. REVIEW OF SYSTEMS: CONSTITUTIONAL: No night sweats. No fatigue, malaise, lethargy. No fever or chills. HEENT: Eyes: No visual changes. No eye pain. No eye discharge. ENT: No runny nose. No epistaxis. No sinus pain. No sore throat. No odynophagia. No congestion. RESPIRATORY: No cough, no congestion. No hemoptysis. No shortness of breath. CARDIOVASCULAR: No angina symptoms. No CHF symptoms. No atypical chest pain for CAD. No palpitations. No PND. No orthopnea. GASTROINTESTINAL: No abdominal pain. No nausea or vomiting. No diarrhea or constipation. No hematemesis. No hematochezia. GENITOURINARY: No urgency. No frequency. No dysuria. No hematuria. No obstructive symptoms. No discharge. No pain. No significant abnormal bleeding. MUSCULOSKELETAL: No musculoskeletal pain; no joint swelling. NEUROLOGICAL: Confused off and on, forgetful of recent events. No headache. No neck pain. No syncope. No seizures. No dizziness. PSYCHIATRIC: Not anxious. No depression. No suicidal thoughts. No homicidal thoughts. SKIN: No rash. No lesions. No wounds. ENDOCRINE: No unexplained weight loss. No weight gain. HEMATOLOGIC/LYMPHATIC: No anemia. No purpura. No petechiae. No prolonged or excessive bleeding. No palpable lymph nodes. PHYSICAL EXAMINATION: VITAL SIGNS: Temperature 97.7, pulse 90, respiratory rate 18, BP 150/96, pulse ox 94% on 4L. HEENT: Head normocephalic, atraumatic. Eyes: Extraocular muscles are intact. Pupils are equal, round and reactive to light and accommodation. Ears: No lesions. Nose appeared normal. Throat: No exudate or erythema. NECK: Supple. No JVD, no carotid bruit. No lymphadenopathy or thyromegaly. LUNGS: Clear to auscultation. Percussion note normal. Chest symmetrical. HEART: S1, S2, no S3. No murmurs. No cyanosis or clubbing. No ascites. Pulses: Dorsalis pedis and posterior tibial pulses +1 to +2 bilaterally. ABDOMEN: Soft. Nontender. Bowel sounds active. No CVA tenderness. No mass felt. EXTREMITIES: No edema. Full range of motion of all extremities, equal. NEUROLOGIC: No focal deficit. Cranial nerves II through XII are grossly intact. No headache. No double vision. SKIN: Not dry. Intact. Turgor - normal. LYMPHATIC: No palpable lymph nodes/no lymphedema. MUSCULOSKELETAL: Normal joints with no swelling. Muscle tone is normal. PLAN: 1. Continue antibiotics. 2. Will discontinue Rocephin. 3. Will put her on Keflex 500 mg twice a day. 4. Physical Therapy will hold because as soon as the patient gets up she gets extremely short of breath and the saturation drops to 86%. 5. Continue oral steroids. 6. The patient is to be given insulin depending upon her scale. TIME SPENT: More than 30 minutes. Plan and coordination of the patient's care discussed in the presence of nurse. DEVAN
[2020-12-22] MEDS: CLARITIN PO SCH (09:02)
[2020-12-22] MEDS: TRIGLIDE PO SCH (09:02)
[2020-12-22] MEDS: KEFLEX PO SCH ×2 (09:02→20:35)
[2020-12-22] MEDS: NAMENDA PO SCH ×2 (09:02→20:35)
[2020-12-22] MEDS: PREDNISONE PO SCH ×2 (09:02→17:25)
[2020-12-22] MEDS: LOTENSIN PO SCH (09:02)
[2020-12-22] MEDS: ATIVAN PO SCH ×3 (09:02→20:35)
[2020-12-22] MEDS: NORVASC PO SCH (09:02)
[2020-12-22] MEDS: ASTELIN 0.1% NAS SCH ×2 (09:03→20:36)
[2020-12-22] MEDS: ZOLOFT PO SCH (09:03)
[2020-12-22] MEDS: NEURONTIN PO SCH (09:03)
[2020-12-22] MEDS: FERROUS SULFATE PO SCH (09:03)
[2020-12-22] MEDS: ARICEPT PO SCH (09:03)
--- NOTE | 2020-12-22 09:56 | PCM.PROG ---
Attending Provider: ATTENDING PROVIDER: Dr. FRENCH JACOBSON This patient is seen with Antoinette Martínez, Nurse Practitioner. DATE OF SERVICE: 12/22/20 SUBJECTIVE: This 80 year old /WHITE F was hospitalized 12/14/20. The patient is resting comfortably. Slept well last night and tolerating Venti mask. Sat urations are good this morning. She is alert. Coughing and weak. REVIEW OF SYSTEMS: CONSTITUTIONAL: No night sweats. No fatigue, malaise, lethargy. No fever or chills. Weakness. HEENT: Eyes: No visual changes. No eye pain. No eye discharge. ENT: No runny nose. No epistaxis. No sinus pain. No odynophagia. No congestion. RESPIRATORY: Cough, no congestion. No hemoptysis. No shortness of breath. CARDIOVASCULAR: No angina symptoms. No CHF symptoms. No atypical chest pain for CAD. No palpitations. No orthopnea.. GASTROINTESTINAL: No abdominal pain. No nausea or vomiting. No diarrhea or constipation. No hematemesis. No hematochezia. GENITOURINARY: No urgency. No frequency. No dysuria. No hematuria. No obstructive symptoms. No discharge. No pain. No significant abnormal bleeding. MUSCULOSKELETAL: No musculoskeletal pain; no joint swelling. NEUROLOGICAL: Awake, alert, interment confusion. No headache. No neck pain. No syncope. No seizures. No dizziness. PSYCHIATRIC: Not anxious. No depression. No suicidal thoughts. No homicidal thoughts. SKIN: No rash. No lesions. No wounds. ENDOCRINE: No unexplained weight loss. No weight gain. HEMATOLOGIC/LYMPHATIC: No anemia. No purpura. No petechiae. No prolonged or excessive bleeding. No palpable lymph nodes. PHYSICAL EXAMINATION: GENERAL: The patient is awake, alert and oriented, lying in bed in no distress. VITAL SIGNS: Temperature 97.2 F, Pulse 94, Respiratory Rate 20, BP 145/81, Pu lse Ox 97% HEENT: Head normocephalic, atraumatic. Eyes: Extraocular muscles are intact. Pupils are equal, round and reactive to light and accommodation. Ears: No lesions. Nose appeared normal. Throat: No exudate or erythema. NECK: Supple. No JVD, no carotid bruit. No lymphadenopathy or thyromegaly. LUNGS: Diminished breath sounds. Upper airway rhonchi. Clear to auscultation. Percussion note normal. Chest symmetrical. HEART: S1, S2, no S3. No murmurs. No cyanosis or clubbing. No ascites. Pulses: Dorsalis pedis and posterior tibial pulses +1 to +2 both sides. ABDOMEN: Soft. Non-tender. Bowel sounds active. No CVA tenderness. No mass felt. EXTREMITIES: Trace bilateral edema. Full range of motion of all extremities, equal. NEUROLOGIC: No focal deficit. Cranial nerves II through XII are grossly intact. No headache. No double vision. SKIN: Not dry. Intact. Turgor-normal. LYMPHATIC: No palpable lymph nodes/no lymphedema. MUSCULOSKELETAL: Normal joints with no swelling. Muscle tone is normal. LAB REVIEW: 12/22/20 04:47 12/22/20 04:47 12/22/20 04:47: PT 17.1 H, INR 1.60 12/22/20 04:47: Sodium 134.4 L, Potassium 4.16, Chloride 88.6 L, Carbon Dioxide 42.1 H*, Anion Gap 7.86, BUN 24.0 H, Creatinine 0.94, Estimated GFR (MDRD) 57.00, BUN/Creatinine Ratio 25.53, Glucose 204.2 H, Calcium 8.14 L, Total Cornelio irubin 0.45, AST 24.3, ALT 25.1, Alkaline Phosphatase 49.1 L, Total Protein 5.63 L, Albumin 3.22 L, Globulin 2.41, Albumin/Globulin Ratio 1.33 12/22/20 04:47: WBC 6.36, RBC 3.84 L, Hgb 10.2 L, Hct 35.0 L, MCV 91.1, MCH 26.6 L, MCHC 29.1 L, RDW Coeff of Monique 16.1 H, Plt Count 146, Immature Gran % (Auto) 0.5, Neut % (Auto) 83.9 H, Lymph % (Auto) 4.9 L, [place] % (Auto) 10.7 H, Eos % (Auto) 0.0, Baso % (Auto) 0.0, Neut # (Auto) 5.3, Lymph # (Auto) 0.3 L, [place] # (Auto) 0.7, Eos # (Auto) 0.0, Baso # (Auto) 0.0, Immature Gran # (Auto) 0.0 12/21/20 10:21: Puncture Site Rrad, Base Excess 24.8 H, O2 Saturation 87.6 L, ABG pH 7.40, ABG pCO2 80.0 H, ABG pO2 54.0 L*, ABG HCO3 49.6 H, ABG Total CO2 52.1 H, Adam Test Pos, Hemoglobin 1.0, Oxyhemoglobin 87.5 L, Carboxyhemoglobin 3.4 H, Total Hemoglobin 11.7, O2 Delivery Device Nc, Oxygen Liter Flow 2.50 12/18/20 05:25: Oxygen Liter Flow 2.50 ASSESSMENT: Please see below. 1. Acute respiratory failure 2. COPD 3. Atrial fibrillation 4. Generalized weakness. PLAN: 1. Continue with Venturi mask at night and nasal cannula during the day. 2. 12mg Coumadin 3. 20mg IV Lasix 4. Repeat ABG continue with vent mask at night and nasal can during the day. Plan and coordination of the patient's care discussed in the presence of Sde and nurse. SCRIBED BY: JAQUELINE LINDER Patient Access Coordinator scribed while in presence of service performed by Dr. Jacobson/Antoinette Martínez APRN on 12/22/20 ([id number])
[2020-12-22 09:58] LABS: ABG O2 HGB 90.3 % (95-100); ABG PH 7.37 (7.35-7.45); BEecf 20.9 (-2.0-3.0); COHb 2.7 (0.5-1.5); HCO3 46.2 (21-28); MetHb 1.1 (0-1.5); TCO2 48.7 (19-24); sO2 89.8 % (94-98); tHb 10.6 g/dl (11.7-17.4)
[2020-12-22] MEDS ORDERED: COUMADIN PO ONE (17:00)
[2020-12-22] MEDS: MEVACOR PO SCH (17:25)
[2020-12-22] MEDS: COUMADIN PO SCH (17:26)
[2020-12-22] MEDS: VISTARIL PO PRN (20:35)
[2020-12-22] MEDS: SEROQUEL PO SCH (20:35)
[2020-12-23] MEDS: DUONEB NEB SCH ×4 (05:49→19:52)
[2020-12-23] MEDS: PULMICORT 1 MG/2 ML NEB SCH ×2 (05:51→19:51)
[2020-12-23 06:07] LABS: ALANINE AMINOTRANSFERASE 26.3 U/L (0-35); ALBUMIN 3.33 g/dL (3.5-5.0); ALKALINE PHOSPHATASE 51.2 U/L (53-141); BILIRUBIN,TOTAL 0.58 mg/dL (0.2-1.3); BLOOD UREA NITROGEN 24.4 mg/dL (7-17); CALCIUM 8.05 mg/dL (8.4-10.2); CHLORIDE 86.5 mmol/L (98-107); POTASSIUM 4.3 mmol/L (3.5-5.1); SODIUM 132.6 mmol/L (134.5-145); TOTAL PROTEIN 5.93 g/dL (6.3-8.2)
[2020-12-23 06:08] LABS: BASOPHILS % (AUTO) 0.1 % (0.0-3.0); EOSINOPHILS % (AUTO) 0.1 % (0.0-7.0); HEMATOCRIT 36.7 % (37.0-47.0); HEMOGLOBIN 10.6 g/dl (12.0-16.0); IMMATURE GRANULOCYTE % (AUTO) 0.5 % (0.0-5.0); LYMPHOCYTES # (AUTO) 0.3 K/uL (0.60-3.4); LYMPHOCYTES % (AUTO) 3.5 (10.0-50.0); MEAN CORPUSCULAR HEMOGLOBIN 26.2 pg (27.0-31.0); MEAN CORPUSCULAR HGB CONC 28.9 (31.8-35.4); MEAN CORPUSCULAR VOLUME 90.8 fl (81.0-99.0); MONOCYTES # (AUTO) 0.6 K/uL (0.4-2.0); MONOCYTES % (AUTO) 8.4 (0-10); NEUTROPHILS # (AUTO) 6.7 K/ul (2.0-6.9); NEUTROPHILS % (AUTO) 87.4 % (42.2-75.2); PLATELET COUNT 166 10^3/uL (140-440); RED BLOOD COUNT 4.04 10^6/ul (4.20-5.40); WHITE BLOOD COUNT 7.66 K/ul (4.6-10.2)
[2020-12-23 06:14] LABS: ANISOCYTOSIS NOT PRESENT (NOT PRESENT); HYPOCHROMASIA 1+ (NOT PRESENT)
[2020-12-23 06:18] LABS: CARBON DIOXIDE 40.2 mmol/L (22-30.0)
[2020-12-23] MEDS: LASIX TAB PO SCH (06:38)
[2020-12-23] MEDS: HUMULIN R SUBCUT PRN (06:38)
[2020-12-23] MEDS: PRILOSEC PO SCH ×2 (06:38→18:45)
[2020-12-23] MEDS: NEURONTIN PO SCH (08:47)
[2020-12-23] MEDS: ASTELIN 0.1% NAS SCH ×2 (08:47→22:02)
[2020-12-23] MEDS: KEFLEX PO SCH (08:47)
[2020-12-23] MEDS: ATIVAN PO SCH ×2 (08:47→14:48)
[2020-12-23] MEDS: NAMENDA PO SCH ×2 (08:47→21:52)
[2020-12-23] MEDS: CLARITIN PO SCH (08:47)
[2020-12-23] MEDS: ZOLOFT PO SCH (08:48)
[2020-12-23] MEDS: LOTENSIN PO SCH (08:48)
[2020-12-23] MEDS: ARICEPT PO SCH (08:48)
[2020-12-23] MEDS: TRIGLIDE PO SCH (08:48)
[2020-12-23] MEDS: PREDNISONE PO SCH ×2 (08:48→18:45)
[2020-12-23] MEDS: FERROUS SULFATE PO SCH (08:48)
[2020-12-23] MEDS: NORVASC PO SCH (08:48)
[2020-12-23] MEDS: TYLENOL PO PRN (15:09)
[2020-12-23 17:08] LABS: ABG O2 HGB 81.9 % (95-100); ABG PH 7.49 (7.35-7.45); COHb 3.5 (0.5-1.5); HCO3 53.3 (21-28); TCO2 55.4 (19-24); tHb 10.8 g/dl (11.7-17.4)
[2020-12-23] MEDS ORDERED: LASIX IVP ONE (17:30)
[2020-12-23] MEDS ORDERED: ROCEPHIN 1 GM/50 ML D5W 1 GM/50 ML BAG IV ONE (17:50)
[2020-12-23 18:01] LABS: PROTHROMBIN TIME 17.8 SEC (9.3-11.0)
[2020-12-23] MEDS: MEVACOR PO SCH (18:45)
[2020-12-23] MEDS: COUMADIN PO SCH (18:45)
[2020-12-23] MEDS: SEROQUEL PO SCH (21:52)
[2020-12-24] MEDS: PULMICORT 1 MG/2 ML NEB SCH ×2 (05:29→22:05)
[2020-12-24] MEDS: DUONEB NEB SCH ×4 (05:29→22:07)
[2020-12-24] MEDS: PRILOSEC PO SCH ×2 (05:38→17:04)
[2020-12-24] MEDS: LASIX TAB PO SCH (05:39)
[2020-12-24 05:52] LABS: HEMOGLOBIN 11.1 g/dl (12.0-16.0); MEAN CORPUSCULAR HEMOGLOBIN 26.7 pg (27.0-31.0); MEAN CORPUSCULAR VOLUME 89.2 fl (81.0-99.0); PLATELET COUNT 177 10^3/uL (140-440); RED BLOOD COUNT 4.15 10^6/ul (4.20-5.40); WHITE BLOOD COUNT 6.68 K/ul (4.6-10.2)
[2020-12-24 06:00] LABS: PROTHROMBIN TIME 16.7 SEC (9.3-11.0)
[2020-12-24 06:03] LABS: ANISOCYTOSIS NOT PRESENT (NOT PRESENT)
[2020-12-24 06:14] LABS: ALANINE AMINOTRANSFERASE 22.9 U/L (0-35); ALBUMIN 3.28 g/dL (3.5-5.0); ALKALINE PHOSPHATASE 47.9 U/L (53-141); ASPARTATE AMINO TRANSFERASE 29.4 U/L (14-36); BILIRUBIN,TOTAL 0.58 mg/dL (0.2-1.3); BLOOD UREA NITROGEN 33.7 mg/dL (7-17); CALCIUM 7.65 mg/dL (8.4-10.2); CHLORIDE 82.8 mmol/L (98-107); CREATININE 1.17 mg/dL (0.60-1.30); GLUCOSE 136.5 mg/dL (74-106); POTASSIUM 4.05 mmol/L (3.5-5.1); SODIUM 131.1 mmol/L (134.5-145); TOTAL PROTEIN 5.86 g/dL (6.3-8.2)
[2020-12-24 06:20] LABS: CARBON DIOXIDE 40.5 mmol/L (22-30.0)
[2020-12-24] MEDS: TYLENOL PO PRN ×2 (07:39→12:24)
[2020-12-24] MEDS ORDERED: ROCEPHIN 1 GM/50 ML D5W 1 GM/50 ML BAG IV SCH ×2 (09:00→21:00)
[2020-12-24] MEDS: PREDNISONE PO SCH ×2 (09:26→17:04)
[2020-12-24] MEDS: LOTENSIN PO SCH (09:26)
[2020-12-24] MEDS: NAMENDA PO SCH ×2 (09:26→21:33)
[2020-12-24] MEDS: NEURONTIN PO SCH (09:26)
[2020-12-24] MEDS: CLARITIN PO SCH (09:26)
[2020-12-24] MEDS: FERROUS SULFATE PO SCH (09:26)
[2020-12-24] MEDS: ZOLOFT PO SCH (09:26)
[2020-12-24] MEDS: ARICEPT PO SCH (09:27)
[2020-12-24] MEDS: TRIGLIDE PO SCH (09:27)
[2020-12-24] MEDS: NORVASC PO SCH (09:27)
[2020-12-24] MEDS: ASTELIN 0.1% NAS SCH (09:28)
[2020-12-24] MEDS: HUMULIN R SUBCUT PRN ×3 (12:24→21:34)
[2020-12-24] MEDS ORDERED: LEVAQUIN 500 MG/100 ML D5W 500 MG/100 ML BAG IV SCH (12:30)
[2020-12-24] MEDS: LEVAQUIN 500 MG/100 ML D5W 500 MG/100 ML BAG IV SCH (12:59)
[2020-12-24] MEDS ORDERED: AZACTAM ONE ×2 (14:50→20:16)
[2020-12-24] MEDS: AZACTAM 1 GM in SODIUM CHLORIDE 50 ML IV SCH ×2 (14:58→21:31)
[2020-12-24] MEDS: COUMADIN PO SCH (17:04)
[2020-12-24] MEDS: MEVACOR PO SCH (17:04)
[2020-12-24 20:29] LABS: BORDETELLA PARAPERTUSSIS (PCR) NOT DETECTED (NOT DETECT); BORDETELLA PERTUSSIS (PCR) NOT DETECTED (NOT DETECT); CHLAMYDIA PNEUMONIAE (PCR) NOT DETECTED (NOT DETECT); CORONAVIRUS 229E (PCR) NOT DETECTED (NOT DETECT); CORONAVIRUS HKU1 (PCR) NOT DETECTED (NOT DETECT); CORONAVIRUS NL63 (PCR) NOT DETECTED (NOT DETECT); CORONAVIRUS OC43 (PCR) NOT DETECTED (NOT DETECT); HUMAN METAPNEUMOVIRUS (PCR) NOT DETECTED (NOT DETECT); HUMAN RHINOVIRUS/ENTEROV (PCR) NOT DETECTED (NOT DETECT); INFLUENZA B (PCR) NOT DETECTED (NOT DETECT); MYCOPLASMA PNEUMONIAE (PCR) NOT DETECTED (NOT DETECT); PARAINFLUENZA VIRUS 1 (PCR) NOT DETECTED (NOT DETECT); PARAINFLUENZA VIRUS 2 (PCR) NOT DETECTED (NOT DETECT); PARAINFLUENZA VIRUS 3 (PCR) NOT DETECTED (NOT DETECT); PARAINFLUENZA VIRUS 4 (PCR) NOT DETECTED (NOT DETECT); RESPIRATORY SYNCYTIAL V (PCR) NOT DETECTED (NOT DETECT)
[2020-12-24] MEDS: SEROQUEL PO SCH (21:33)
[2020-12-24 23:11] LABS: ADENOVIRUS (PCR) NOT DETECTED (NOT DETECT); SARS_COV_2 (PCR) DETECTED (NOT DETECT)
[2020-12-25 05:09] LABS: HEMATOCRIT 38.4 % (37.0-47.0); HEMOGLOBIN 11.6 g/dl (12.0-16.0); MEAN CORPUSCULAR HEMOGLOBIN 26.5 pg (27.0-31.0); MEAN CORPUSCULAR HGB CONC 30.2 (31.8-35.4); MEAN CORPUSCULAR VOLUME 87.7 fl (81.0-99.0); PLATELET COUNT 167 10^3/uL (140-440); RDW COEFFICIENT OF VARIATION 15.8 % (11.6-14.8); RED BLOOD COUNT 4.38 10^6/ul (4.20-5.40); WHITE BLOOD COUNT 7.36 K/ul (4.6-10.2)
[2020-12-25 05:17] LABS: PROTHROMBIN TIME 14.1 SEC (9.3-11.0)
[2020-12-25 05:20] LABS: ALANINE AMINOTRANSFERASE 27.8 U/L (0-35); ALBUMIN 3.3 g/dL (3.5-5.0); ALKALINE PHOSPHATASE 51.5 U/L (53-141); ASPARTATE AMINO TRANSFERASE 40.8 U/L (14-36); BILIRUBIN,TOTAL 0.56 mg/dL (0.2-1.3); BLOOD UREA NITROGEN 30.7 mg/dL (7-17); CALCIUM 7.89 mg/dL (8.4-10.2); CARBON DIOXIDE 38.9 mmol/L (22-30.0); CHLORIDE 87.5 mmol/L (98-107); CREATININE 1.15 mg/dL (0.60-1.30); GLUCOSE 127.2 mg/dL (74-106); POTASSIUM 4.08 mmol/L (3.5-5.1); SODIUM 130.7 mmol/L (134.5-145); TOTAL PROTEIN 6.05 g/dL (6.3-8.2)
[2020-12-25 05:26] LABS: ANISOCYTOSIS NOT PRESENT (NOT PRESENT)
[2020-12-25] MEDS: DUONEB NEB SCH ×2 (05:31→10:30)
[2020-12-25] MEDS: PULMICORT 1 MG/2 ML NEB SCH (05:32)
[2020-12-25] MEDS: ASTELIN 0.1% NAS SCH ×3 (06:31→21:32)
[2020-12-25] MEDS: PRILOSEC PO SCH ×2 (06:31→21:30)
[2020-12-25] MEDS: LASIX TAB PO SCH (06:32)
[2020-12-25 08:42] LABS: ABG PH 7.43 (7.35-7.45); BEecf 17.5 (-2.0-3.0); COHb 3.1 (0.5-1.5); HCO3 41.8 (21-28); MetHb 1.4 (0-1.5); TCO2 43.7 (19-24); sO2 89.6 % (94-98); tHb 12.6 g/dl (11.7-17.4)
[2020-12-25] MEDS ORDERED: LEVAQUIN 750 MG/150 ML D5W 750 MG/150 ML BAG IV SCH (09:30)
[2020-12-25] MEDS: ATIVAN PO SCH ×3 (10:00→21:30)
[2020-12-25] MEDS: NEURONTIN PO SCH (10:02)
[2020-12-25] MEDS: NAMENDA PO SCH ×2 (10:03→21:31)
[2020-12-25] MEDS: ZOLOFT PO SCH (10:03)
[2020-12-25] MEDS: TYLENOL PO PRN ×3 (10:03→17:23)
[2020-12-25] MEDS: CLARITIN PO SCH (10:03)
[2020-12-25] MEDS: FERROUS SULFATE PO SCH (10:03)
[2020-12-25] MEDS: ARICEPT PO SCH (10:03)
[2020-12-25] MEDS: NORVASC PO SCH (10:03)
[2020-12-25] MEDS: TRIGLIDE PO SCH (10:03)
[2020-12-25] MEDS: LOTENSIN PO SCH (10:04)
[2020-12-25] MEDS: PREDNISONE PO SCH ×2 (10:04→17:24)
[2020-12-25] MEDS: LEVAQUIN 500 MG/100 ML D5W 500 MG/100 ML BAG IV SCH (10:05)
[2020-12-25] MEDS: AZACTAM 1 GM in SODIUM CHLORIDE 50 ML IV SCH (11:28)
[2020-12-25] MEDS ORDERED: AZACTAM 1 GM in SODIUM CHLORIDE 50 ML IV SCH (12:00)
[2020-12-25] MEDS ORDERED: DECADRON IM SCH (12:30)
[2020-12-25 13:14] LABS: TROPONIN I 0.064 ng/ml (0.0000-0.120)
[2020-12-25] MEDS: VITAMIN D PO SCH (13:14)
[2020-12-25] MEDS: VISTARIL PO PRN (13:15)
[2020-12-25] MEDS: ZINC-220 PO SCH (13:15)
[2020-12-25] MEDS: HUMULIN R SUBCUT PRN ×3 (13:16→21:29)
[2020-12-25] MEDS: SYMBICORT 160-4.5 MCG INHALER IH SCH ×2 (13:28→21:31)
[2020-12-25] MEDS ORDERED: LANOXIN IVP STA (13:49)
[2020-12-25] MEDS ORDERED: CARDIZEM PO ONE (13:53)
[2020-12-25] MEDS: DEXTROSE 5%-1/2NS IV SOLUTION 1,000 ML IV SCH (14:35)
[2020-12-25] MEDS: PROAIR HFA (SINGLE PATIENT USE) IH SCH ×2 (14:42→19:40)
[2020-12-25] MEDS: ATROVENT HFA INHALER (PER PUFF-WITH SPACER) IH SCH ×2 (14:42→19:40)
[2020-12-25] MEDS ORDERED: LANOXIN IVP ONE (14:55)
[2020-12-25] MEDS ORDERED: VENTOLIN HFA (PER PUFF-WITH SPACER) IH SCH (15:00)
[2020-12-25] MEDS ORDERED: COUMADIN PO ONE (17:00)
[2020-12-25] MEDS: COUMADIN PO SCH (17:19)
[2020-12-25] MEDS: PEPCID PO SCH (17:23)
[2020-12-25] MEDS: MEVACOR PO SCH (17:50)
[2020-12-25] MEDS: SEROQUEL PO SCH (21:31)
[2020-12-26] MEDS: DEXTROSE 5%-1/2NS IV SOLUTION 1,000 ML IV SCH (00:49)
[2020-12-26] MEDS: ATROVENT HFA INHALER (PER PUFF-WITH SPACER) IH SCH ×4 (04:20→19:55)
[2020-12-26] MEDS: PROAIR HFA (SINGLE PATIENT USE) IH SCH ×4 (04:20→19:55)
[2020-12-26 06:08] LABS: HEMATOCRIT 40.7 % (37.0-47.0); HEMOGLOBIN 12.3 g/dl (12.0-16.0); MEAN CORPUSCULAR HEMOGLOBIN 26.3 pg (27.0-31.0); MEAN CORPUSCULAR HGB CONC 30.2 (31.8-35.4); PLATELET COUNT 156 10^3/uL (140-440); RDW COEFFICIENT OF VARIATION 16.1 % (11.6-14.8); RED BLOOD COUNT 4.68 10^6/ul (4.20-5.40); WHITE BLOOD COUNT 25.16 K/ul (4.6-10.2)
[2020-12-26 06:16] LABS: ANISOCYTOSIS NOT PRESENT (NOT PRESENT)
[2020-12-26 06:25] LABS: ALANINE AMINOTRANSFERASE 141.1 U/L (0-35); ALBUMIN 2.9 g/dL (3.5-5.0); ALKALINE PHOSPHATASE 91.9 U/L (53-141); ASPARTATE AMINO TRANSFERASE 227.5 U/L (14-36); BILIRUBIN,TOTAL 1.05 mg/dL (0.2-1.3); CALCIUM 7.3 mg/dL (8.4-10.2); CARBON DIOXIDE 30.4 mmol/L (22-30.0); CHLORIDE 87.7 mmol/L (98-107); CREATININE 2.97 mg/dL (0.60-1.30); GLUCOSE 327.5 mg/dL (74-106); POTASSIUM 5.03 mmol/L (3.5-5.1); SODIUM 128.2 mmol/L (134.5-145); TOTAL PROTEIN 5.51 g/dL (6.3-8.2)
[2020-12-26 06:28] LABS: PROTHROMBIN TIME 18.5 SEC (9.3-11.0)
[2020-12-26 06:35] LABS: TROPONIN I 0.112 ng/ml (0.0000-0.120)
[2020-12-26 06:45] LABS: BLOOD UREA NITROGEN 70.1 mg/dL (7-17)
[2020-12-26 06:50] LABS: ABG PH 7.41 (7.35-7.45); BEecf 5.8 (-2.0-3.0)
[2020-12-26 06:51] LABS: COHb 4.1 (0.5-1.5); HCO3 30.4 (21-28); MetHb 0.7 (0-1.5); TCO2 31.9 (19-24); sO2 92.9 % (94-98); tHb 12.9 g/dl (11.7-17.4)
[2020-12-26] MEDS: HUMULIN R SUBCUT PRN ×4 (07:03→20:20)
[2020-12-26] MEDS: LASIX TAB PO SCH (08:07)
[2020-12-26] MEDS: PEPCID PO SCH ×2 (08:07→17:29)
[2020-12-26] MEDS: PRILOSEC PO SCH ×2 (08:08→17:43)
[2020-12-26 09:52] LABS: ALANINE AMINOTRANSFERASE 134.5 U/L (0-35); ALBUMIN 3.04 g/dL (3.5-5.0); ALKALINE PHOSPHATASE 92.5 U/L (53-141); ASPARTATE AMINO TRANSFERASE 212.9 U/L (14-36); BILIRUBIN,TOTAL 0.95 mg/dL (0.2-1.3); CALCIUM 7.17 mg/dL (8.4-10.2); CARBON DIOXIDE 29.5 mmol/L (22-30.0); CHLORIDE 88.5 mmol/L (98-107); CREATININE 3.14 mg/dL (0.60-1.30); GLUCOSE 313.3 mg/dL (74-106); POTASSIUM 5.24 mmol/L (3.5-5.1); SODIUM 129.5 mmol/L (134.5-145); TOTAL PROTEIN 5.54 g/dL (6.3-8.2)
[2020-12-26 10:00] LABS: BLOOD UREA NITROGEN 74.3 mg/dL (7-17)
[2020-12-26] MEDS ORDERED: ZITHROMAX 500 MG in SODIUM CHLORIDE 250 ML IV SCH (10:00)
[2020-12-26] MEDS: ATIVAN PO SCH ×3 (10:24→20:19)
[2020-12-26] MEDS: ZOLOFT PO SCH (10:24)
[2020-12-26] MEDS: VITAMIN D PO SCH (10:24)
[2020-12-26] MEDS: NEURONTIN PO SCH (10:25)
[2020-12-26] MEDS: NAMENDA PO SCH ×2 (10:25→20:19)
[2020-12-26] MEDS: CLARITIN PO SCH (10:25)
[2020-12-26] MEDS: ARICEPT PO SCH (10:25)
[2020-12-26] MEDS: NORVASC PO SCH (10:25)
[2020-12-26] MEDS: ZINC-220 PO SCH (10:25)
[2020-12-26] MEDS: LOTENSIN PO SCH (10:25)
[2020-12-26] MEDS: FERROUS SULFATE PO SCH (10:26)
[2020-12-26] MEDS: ASTELIN 0.1% NAS SCH ×2 (10:26→20:31)
[2020-12-26] MEDS: TRIGLIDE PO SCH (10:26)
[2020-12-26] MEDS: DECADRON IM SCH ×2 (10:26→20:19)
[2020-12-26] MEDS: SYMBICORT 160-4.5 MCG INHALER IH SCH ×3 (10:27→20:30)
[2020-12-26] MEDS: SODIUM CHLORIDE 1,000 ML IV SCH ×2 (10:27→21:39)
[2020-12-26] MEDS: PREDNISONE PO SCH (10:42)
--- NOTE | 2020-12-26 11:07 | PN ---
DATE OF SERVICE: 12/21/2020 SUBJECTIVE: 80 year old white female hospitalized with respiratory failure. The patient's condition has been stable. Requires Venturi mask during the night and nasal cannula during the day. She is too weak to undergo physical therapy for now. She has been on antibiotics, NEBS and steroids. Still fighting the idea of going to the [facility] and getting physical therapy. PROGNOSIS: Poor. TIME SPENT: More than 30 minutes. Plan and coordination of the patient's care discussed in the presence of nurse. DEVAN
--- NOTE | 2020-12-26 11:23 | PCM.PROG ---
Attending Provider: ATTENDING PROVIDER: Dr. FRENCH EID This patient is seen with Antoinette Martínez, Nurse Practitioner. DATE OF SERVICE: 12/26/20 SUBJECTIVE: This 80 year old /WHITE F was hospitalized 12/14/20. The patient is lethargic and short of breath. Renal function significantly worse today. Liver enzymes elevated. REVIEW OF SYSTEMS: CONSTITUTIONAL: Weakness, lethargy. No night sweats. No malaise, lethargy. No fever or chills. HEENT: Eyes: No visual changes. No eye pain. No eye discharge. ENT: No runny nose. No epistaxis. No sinus pain. No odynophagia. No congestion. RESPIRATORY: No cough, no congestion. No hemoptysis. Shortness of breath. CARDIOVASCULAR: No angina symptoms. No CHF symptoms. No atypical chest pain for CAD. No palpitations. No orthopnea.. GASTROINTESTINAL: No abdominal pain. No nausea or vomiting. No diarrhea or constipation. No hematemesis. No hematochezia. GENITOURINARY: No urgency. No frequency. No dysuria. No hematuria. No obstr uctive symptoms. No discharge. No pain. No significant abnormal bleeding. MUSCULOSKELETAL: No musculoskeletal pain; no joint swelling. NEUROLOGICAL: Awake, confusion. No headache. No neck pain. No syncope. No seizures. No dizziness. PSYCHIATRIC: Not anxious. No depression. No suicidal thoughts. No homicidal thoughts. SKIN: No rash. No lesions. No wounds. ENDOCRINE: No unexplained weight loss. No weight gain. HEMATOLOGIC/LYMPHATIC: No anemia. No purpura. No petechiae. No prolonged or excessive bleeding. No palpable lymph nodes. PHYSICAL EXAMINATION: GENERAL: The patient is awake, alert and oriented, lying/sitting in bed in no distress. VITAL SIGNS: Temperature 97.9 F, Pulse 88, Respiratory Rate 24, BP 103/59, Pulse Ox 85% HEENT: Head normocephalic, atraumatic. Eyes: Extraocular muscles are intact. Pupils are equal, round and reactive to light and accommodation. Ears: No lesions. Nose appeared normal. Throat: No exudate or erythema. NECK: Supple. No JVD, no carotid bruit. No lymphadenopathy or thyromegaly. LUNGS: Diminished breath sounds with bilateral rhonchi. Percussion note normal. Chest symmetrical. HEART: S1, S2, no S3. No murmurs. No cyanosis or clubbing. No ascites. Pulses: Dorsalis pedis and posterior tibial pulses +1 to +2 both sides. ABDOMEN: Soft. Non-tender. Bowel sounds active. No CVA tenderness. No mass felt. EXTREMITIES: No edema. Full range of motion of all extremities, equal. NEUROLOGIC: No focal deficit. Cranial nerves II through XII are grossly intact. No headache. No double vision. SKIN: Not dry. Intact. Turgor-normal. LYMPHATIC: No palpable lymph nodes/no lymphedema. MUSCULOSKELETAL: Normal joints with no swelling. Muscle tone is normal. LAB REVIEW: 12/26/20 05:17 12/26/20 05:17 12/26/20 06:00: Puncture Site Rrad, Base Excess 5.8 H, O2 Saturation 92.9 L, ABG pH 7.41, ABG pCO2 48.0 H, ABG pO2 66.0 L, ABG HCO3 30.4 H, ABG Total CO2 31.9 H, Adam Test +, Hemoglobin 0.7, Oxyhemoglobin 90.0 L, Carboxyhemoglobin 4.1 H, Total Hemoglobin 12.9, O2 Delivery Device Venti, FiO2 % 55.0 12/26/20 05:17: D-Dimer > 07938.00 H 12/26/20 05:17: Sodium 128.2 L, Potassium 5.03, Chloride 87.7 L, Carbon Dioxide 30.4 H D, Anion Gap 15.13, BUN 70.1 H* D, Creatinine 2.97 H D, Estimated GFR (MDRD) 15.00, BUN/Creatinine Ratio 23.60, Glucose 327.5 H, Calcium 7.30 L, Ferritin 1240.00 H, Total Bilirubin 1.05, AST 227.5 H D, ALT 141.1 H D, Alkaline Phosphatase 91.9 D, Troponin I 0.112, Total Protein 5.51 L, Albumin 2.90 L, Globulin 2.61, Albumin/Globulin Ratio 1.11 12/26/20 05:17: WBC 25.16 H D, RBC 4.68, Hgb 12.3, Hct 40.7, MCV 87.0, MCH 26.3 L, MCHC 30.2 L, RDW Coeff of Monique 16.1 H, Plt Count 156, Neutrophils % (Manual) 89.0 H, Band Neutrophils % 3.0, Lymphocytes % (Manual) 6.0 L, Monocytes % (Manual) 2.0, Anisocytosis Not present 12/26/20 05:17: PT 18.5 H, INR 1.74 12/25/20 12:43: Ferritin 961.00 H, Troponin I 0.064 12/25/20 12:43: D-Dimer > 43040.00 H ASSESSMENT: Please see below. 1. Acute respiratory failure. 2. Covid-19. 3. Acute renal failure. 4. Atrial fibrillation. 5. Elevated liver functions. PLAN: 1. Repeat CMP. 2. Continue IV fluids. 3. Start NS instead of D5 04/22. 4. Will evaluate the need for Remdesivir. 5. Increase Dexamethasone to twice a day. 6. Hold Lovastatin. 7. Coumadin 12 mg today. 8. Add Zithromax 500 mg IV daily for three days. 9. Hold Lasix tomorrow. Plan and coordination of the patient's care discussed in the presence of Damon tanner and nurse. CONDITION: Poor SCRIBED BY: SERVANDO CANALES, Manager Customs scribed while in presence of service performed by Dr. Eid/Antoinette Martínez APRN on 12/26/20 (09)
[2020-12-26] MEDS ORDERED: VEKLURY 200 MG in SODIUM CHLORIDE 250 ML IV ONE (12:00)
[2020-12-26] MEDS ORDERED: COUMADIN PO ONE (17:00)
[2020-12-26] MEDS: COUMADIN PO SCH (17:30)
[2020-12-26] MEDS: SEROQUEL PO SCH (20:19)
[2020-12-26 20:47] VITALS: BP 111/57; TEMP 98.4
[2020-12-27] MEDS ORDERED: TRANSDERM-SCOP 1.5 MG PATCH TD STA (03:17)
[2020-12-27] MEDS ORDERED: MORPHINE 2 MG/ML SYRINGE IVP PRN (03:17)
[2020-12-27 04:09] LABS: C-REACTIVE PROTEIN 313 mg/L (0-10)
[2020-12-27 04:09] LABS: C-REACTIVE PROTEIN 193 mg/L (0-10)
[2020-12-27] MEDS: PROAIR HFA (SINGLE PATIENT USE) IH SCH (04:35)
[2020-12-27] MEDS: ATROVENT HFA INHALER (PER PUFF-WITH SPACER) IH SCH (04:35)
[2020-12-27 05:44] LABS: HEMATOCRIT 40.2 % (37.0-47.0); HEMOGLOBIN 11.7 g/dl (12.0-16.0); MEAN CORPUSCULAR HEMOGLOBIN 26.5 pg (27.0-31.0); MEAN CORPUSCULAR HGB CONC 29.1 (31.8-35.4); PLATELET COUNT 198 10^3/uL (140-440); RDW COEFFICIENT OF VARIATION 15.9 % (11.6-14.8); RED BLOOD COUNT 4.42 10^6/ul (4.20-5.40); WHITE BLOOD COUNT 24.72 K/ul (4.6-10.2)
[2020-12-27 05:49] LABS: ABG PH 7.02 (7.35-7.45)
[2020-12-27 05:50] LABS: BEecf -0.3 (-2.0-3.0)
[2020-12-27 05:51] LABS: COHb 2.3 (0.5-1.5); HCO3 30.7 (21-28); TCO2 34.4 (19-24); sO2 65.1 % (94-98); tHb 12.3 g/dl (11.7-17.4)
[2020-12-27 05:56] LABS: ALANINE AMINOTRANSFERASE 117.2 U/L (0-35); ALBUMIN 2.9 g/dL (3.5-5.0); ALKALINE PHOSPHATASE 106.9 U/L (53-141); ASPARTATE AMINO TRANSFERASE 204.7 U/L (14-36); BILIRUBIN,TOTAL 0.97 mg/dL (0.2-1.3); CALCIUM 7.12 mg/dL (8.4-10.2); CARBON DIOXIDE 29.3 mmol/L (22-30.0); CHLORIDE 90.2 mmol/L (98-107); GLUCOSE 182.1 mg/dL (74-106); TOTAL PROTEIN 5.51 g/dL (6.3-8.2)
[2020-12-27 06:06] LABS: TROPONIN I 0.152 ng/ml (0.0000-0.120)
[2020-12-27] MEDS: HUMULIN R SUBCUT PRN (06:22)
[2020-12-27 06:26] LABS: ANISOCYTOSIS NOT PRESENT (NOT PRESENT)
[2020-12-27 06:35] LABS: BLOOD UREA NITROGEN 91.3 mg/dL (7-17); POTASSIUM 6.47 mmol/L (3.5-5.1)
[2020-12-27 06:36] LABS: CREATININE 4.4 mg/dL (0.60-1.30)
[2020-12-27 06:53] LABS: PROTHROMBIN TIME 84.3 SEC (9.3-11.0)
[2020-12-27] MEDS ORDERED: VITAMIN K SUBCUT STA ×2 (06:57→08:27)
[2020-12-27] MEDS ORDERED: SODIUM BICARBONATE 8.4% IVP STA (06:58)
[2020-12-27] MEDS: PRILOSEC PO SCH (07:49)
[2020-12-27] MEDS: PEPCID PO SCH (07:49)
[2020-12-27] MEDS: SODIUM CHLORIDE 1,000 ML IV SCH (07:54)
--- NOTE | 2020-12-27 08:02 | PN ---
DATE OF SERVICE: 12/22/20 SUBJECTIVE: 80-year-old white female seems to be getting a lot better. Her blood gases are acceptable with p02 of 60, pc02 of 80 with normal pH. This is compensated respiratory acidosis. She is oriented to place and person. She was seen and examined with the nurse practitioner. Will continue to give her steroids, nebs, antibiotics. Condition is stable. The patient's blood pressure fluctuates. TIME SPENT: More than 30 minutes. Plan and coordination of the patient's care discussed in the presence of nurse. DEVAN
--- NOTE | 2020-12-27 08:12 | PN ---
DATE OF SERVICE: 12/23/20 SUBJECTIVE: 80-year-old white female hospitalized with respiratory failure. The patient has chronic respiratory insufficiency. The problem is noncompliance. 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 The patient is noncompliant of diet. She is morbidly obese. She eats whatever she wants to. Also she doesn't wear her oxygen at home, doesn't take her medication. In any case, condition is improved. REVIEW OF SYSTEMS: CONSTITUTIONAL: No night sweats. No fatigue, malaise, lethargy. No fever or chills. HEENT: Eyes: No visual changes. No eye pain. No eye discharge. ENT: No runny nose. No epistaxis. No sinus pain. No sore throat. No odynophagia. No congestion. RESPIRATORY: No cough, no congestion. No hemoptysis. No shortness of breath. CARDIOVASCULAR: No angina symptoms. No CHF symptoms. No atypical chest pain for CAD. No palpitations. No PND. No orthopnea. GASTROINTESTINAL: No abdominal pain. No nausea or vomiting. No diarrhea or constipation. No hematemesis. No hematochezia. GENITOURINARY: No urgency. No frequency. No dysuria. No hematuria. No obstructive symptoms. No discharge. No pain. No significant abnormal bleeding. MUSCULOSKELETAL: No musculoskeletal pain; no joint swelling. NEUROLOGICAL: No headache. No neck pain. No syncope. No seizures. No dizziness. PSYCHIATRIC: Not anxious. No depression. No suicidal thoughts. No homicidal thoughts. SKIN: No rash. No lesions. No wounds. ENDOCRINE: No unexplained weight loss. No weight gain. HEMATOLOGIC/LYMPHATIC: No anemia. No purpura. No petechiae. No prolonged or excessive bleeding. No palpable lymph nodes. PHYSICAL EXAMINATION: VITAL SIGNS: Temperature 97.9, pulse 100, respiratory rate 20, BP 166/90, pulse ox 93% on 2L. HEENT: Head normocephalic, atraumatic. Eyes: Extraocular muscles are intact. Pupils are equal, round and reactive to light and accommodation. Ears: No lesions. Nose appeared normal. Throat: No exudate or erythema. NECK: Supple. No JVD, no carotid bruit. No lymphadenopathy or thyromegaly. LUNGS: Decreased breath sounds but good air entry. Percussion note normal. Chest symmetrical. HEART: S1, S2, no S3. No murmurs. No cyanosis or clubbing. No ascites. Pulses: Dorsalis pedis and posterior tibial pulses +1 to +2 bilaterally. ABDOMEN: Soft. Nontender. Bowel sounds active. No CVA tenderness. No mass felt. EXTREMITIES: No edema. Full range of motion of all extremities, equal. NEUROLOGIC: No focal deficit. Cranial nerves II through XII are grossly intact. No headache. No double vision. SKIN: Not dry. Intact. Turgor - normal. LYMPHATIC: No palpable lymph nodes/no lymphedema. MUSCULOSKELETAL: Normal joints with no swelling. Muscle tone is normal. LABS: Hemoglobin 10.6, hematocrit 36, WBC 7,000, normal differential. Creatinine 1, BUN 24, potassium 4.3. ASSESSMENT: 1. Acute respiratory failure with chronic respiratory acidosis compensated at the present time. PLAN: 1. Will continue nebs, steroids, antibiotics. 2. She is encouraged to get up and walk around. The patient needs to go to snf when she is discharged, which the power of contracts attorney for health, the son wants her to go for physical therapy and I agree with it. The patient is reluctant, not herself with confusion off and on. TIME SPENT: More than 30 minutes. Plan and coordination of the patient's care discussed in the presence of nurse. DEVAN
--- NOTE | 2020-12-27 08:23 | PN ---
DATE OF SERVICE: 12/24/20 SUBJECTIVE: 80-year-old white female hospitalized with respiratory failure. The patient had bilateral pneumonia. Condition seemed to have improved but lately has deteriorated. In fact, has been on Venti-Mask at night. Saturation is now 92%. She is on 50% Venti-Mask. The patient is still on steroids, antibiotics. Today she ran a fever in the evening. The patient is going to be treated with Rocephin and Azactam. REVIEW OF SYSTEMS: CONSTITUTIONAL: No night sweats. No fatigue, malaise, lethargy. No fever or chills. HEENT: Eyes: No visual changes. No eye pain. No eye discharge. ENT: No runny nose. No epistaxis. No sinus pain. No sore throat. No odynophagia. No congestion. RESPIRATORY: No cough, no congestion. No hemoptysis. No shortness of breath. CARDIOVASCULAR: No angina symptoms. No CHF symptoms. No atypical chest pain for CAD. No palpitations. No PND. No orthopnea. GASTROINTESTINAL: No abdominal pain. No nausea or vomiting. No diarrhea or constipation. No hematemesis. No hematochezia. GENITOURINARY: No urgency. No frequency. No dysuria. No hematuria. No obstructive symptoms. No discharge. No pain. No significant abnormal bleeding. MUSCULOSKELETAL: No musculoskeletal pain; no joint swelling. NEUROLOGICAL: No headache. No neck pain. No syncope. No seizures. No dizziness. PSYCHIATRIC: Not anxious. No depression. No suicidal thoughts. No homicidal thoughts. SKIN: No rash. No lesions. No wounds. ENDOCRINE: No unexplained weight loss. No weight gain. HEMATOLOGIC/LYMPHATIC: No anemia. No purpura. No petechiae. No prolonged or excessive bleeding. No palpable lymph nodes. PHYSICAL EXAMINATION: GENERAL: The patient is awake, talking, recognized me but still confused. The granddaughter is in the room. VITAL SIGNS: Temperature 99.8, pulse 110, respiratory rate 20, blood pressure 160/80, pulse ox 90% on 2L cannula at the present time. HEENT: Head normocephalic, atraumatic. Eyes: Extraocular muscles are intact. Pupils are equal, round and reactive to light and accommodation. Ears: No lesions. Nose appeared normal. Throat: No exudate or erythema. NECK: Supple. No JVD, no carotid bruit. No lymphadenopathy or thyromegaly. LUNGS: Decreased breath sounds. Good air entry. Clear to auscultation. Percussion note normal. Chest symmetrical. HEART: S1, S2, no S3. No murmurs. No cyanosis or clubbing. No ascites. Pulses: Dorsalis pedis and posterior tibial pulses +1 to +2 bilaterally. ABDOMEN: Soft. Nontender. Bowel sounds active. No CVA tenderness. No mass felt. EXTREMITIES: No edema. Full range of motion of all extremities, equal. NEUROLOGIC: No focal deficit. Cranial nerves II through XII are grossly intact. No headache. No double vision. SKIN: Not dry. Intact. Turgor - normal. LYMPHATIC: No palpable lymph nodes/no lymphedema. MUSCULOSKELETAL: Normal joints with no swelling. Muscle tone is normal. LABS: Hemoglobin 11.1, hematocrit 37, WBC 6,600, normal differential. Creatinine 1.1, BUN 33, potassium 4. ASSESSMENT: 1. Worsening of condition with fever, likely cause UTI. The patient is on Rocephin and Azactam. PLAN: 1. Continue steroids, nebs. May need Venti-Mask at night, during the day cannula. PROGNOSIS: Guarded. The patient's condition has slowly deteriorated. ADDENDUM: In the evening, one of the nurse's called me, Rabia, and indicated that the granddaughter that visits the patient is Covid positive so Covid was ordered for the patient and it turned out to be positive. The patient has Covid and the condition the last couple of days seemed to have deteriorated from the Covid infection. The patient is not going to have Remdesivir. She is going to continue to receive antibiotics, Rocephin and steroids. She was moved to the Covid floor and the family was made aware of the fact that she has Covid. Prognosis is guarded. TIME SPENT: EXTENSIVE Plan and coordination of the patient's care discussed in the presence of nurse. DEVAN
--- NOTE | 2020-12-27 08:32 | PN ---
DATE OF SERVICE: 12/25/20 SUBJECTIVE: 80-year-old white female hospitalized with respiratory failure. Yesterday it was found out that she was Covid positive. Likely she got it from her granddaughter who is positive for Covid and has been frequently visiting her in the hospital. In any case, the patient is on the Covid floor. REVIEW OF SYSTEMS: (unable to take because the patient is more or less obtunded with a high fever) PHYSICAL EXAMINATION: VITAL SIGNS: Temperature 101, pulse 100 irregular, respiratory rate 26, blood pressure 116/68, pulse ox 90% with 40% FI02 oxygen with Venti-Mask. HEENT: Looks somewhat pale. Head normocephalic, atraumatic. Eyes: Extraocular muscles are intact. Pupils are equal, round and reactive to light and accommodation. Ears: No lesions. Nose appeared normal. Throat: No exudate or erythema. NECK: Supple. No JVD, no carotid bruit. No lymphadenopathy or thyromegaly. LUNGS: Decreased breath sounds with mild expiratory wheeze. Percussion note normal. Chest symmetrical. HEART: S1, S2, no S3. No murmurs. No cyanosis or clubbing. No ascites. Pulses: Dorsalis pedis and posterior tibial pulses +1 to +2 bilaterally. ABDOMEN: Soft. Nontender. Bowel sounds active. No CVA tenderness. No mass felt. EXTREMITIES: Trace to 1+ pitting edema. Full range of motion of all extremities, equal. NEUROLOGIC: No focal deficit. Cranial nerves II through XII are grossly intact. No headache. No double vision. SKIN: Not dry. Intact. Turgor - normal. LYMPHATIC: No palpable lymph nodes/no lymphedema. MUSCULOSKELETAL: Normal joints with no swelling. Muscle tone is normal. LABS: Hemoglobin 11.6, hematocrit 38, WBC 7,300, normal differential. Creatinine 1.1, BUN 30, potassium 4. ASSESSMENT: 1. Respiratory failure seems to be worsening with fever and chills. The patient is Covid positive. PLAN: 1. She will be treated with the same steroids, nebs, antibiotics. Azactam will be discontinued. 2. Continue Levaquin. 3. Continue Bipap. 4. Continue Venti-Mask with oxygen by cannula. 5. Will monitor oximetry. 6. Give Tylenol for fever of over 100 every 6 hourly. ADDENDUM: I was called that the patient's heart rate has gone up to 150 with atrial fibrillation. She is unable to take medications as prescribed but again we are going to give IV Lanoxin 0.25 now and an hour later. Another .25 of Lanoxin to control her heart rate and 90 mg P.O. Cardizem if the patient is able to tolerate or take it. Systolic blood pressure is 100. Prognosis is poor considering the patient's problem with severe COPD, congestive heart failure, chronic respiratory failure, morbid obesity with history of atrial fibrillation, now has Covid. TIME SPENT: More than 30 minutes. Plan and coordination of the patient's care discussed in the presence of nurse. DEVAN
[2020-12-27] MEDS ORDERED: LEVAQUIN 750 MG/150 ML D5W 750 MG/150 ML BAG IV SCH (09:00)
--- NOTE | 2020-12-27 10:27 | PCM.PROG ---
Time of : 08:29 Preliminary Cause of : Respiratory Failure
--- NOTE | 2021-01-02 13:50 | PN ---
DATE OF SERVICE: 12/26/20 SUBJECTIVE: The patient was seen and examined with the nurse practitioner. The patient's condition has deteriorated. She had respiratory failure with COPD, CHF but Covid in the hospital through her granddaughter. Condition now is worse. She was given aggressive diuretic because seems to be filling up with fluid overload. The patient's kidney function has worsened, more or less technically medically she is in acute renal failure now. Prognosis is poor. TIME SPENT: More than 30 minutes. Plan and coordination of the patient's care discussed in the presence of nurse. DEVAN
--- NOTE | 2021-01-02 14:27 | DS ---
DATE OF SERVICE: 12/27/20 - DATE OF FINAL DIAGNOSIS: 1. BILATERAL PNEUMONIA - COVID 2. RESPIRATORY FAILURE WITH SEVERE CHRONIC LUNG DISEASE 3. CONGESTIVE HEART FAILURE 4. DILATED CARDIOMYOPATHY 5. MORBID OBESITY 6. HISTORY OF HYPERTENSION 7. ATRIAL FIBRILLATION 8. DYSLIPIDEMIA 9. SEDENTARY LIFESTYLE HOSPITAL COURSE: Ms. Lis Farnsworth was hospitalized with respiratory failure. The patient has been in respiratory failure for a long time and she has chronic respiratory acidosis which is usually compensated. On admission it was partially decompensated and she was put on steroids, antibiotics and nebs treatment. During the stay in the hospital the patient developed Covid. She became positive. Initially on admission her PCR Covid was negative. Her granddaughter visited who use to visit her tested positive the same day it was done on the patient and she was also positive. She started running fever a couple days prior to that and continued to run fever for a few days with worsening of her respiratory status. She was moved to the Covid unit and Remdesivir with intermittent steroids were given along with antibiotics. Condition continued to deteriorate. She became confused, disoriented. She was DNR. Aggressive IV Lasix, steroids, antibiotics and Remdesivir given and the patient's condition as far as respiratory status is concerned deteriorated. The patient also went into renal failure and in the morning with acute respiratory failure with Covid pneumonia. The patient had a lot of comorbidities. TIME SPENT: More than 60 minutes. KATHIAD
--- NOTE | 2021-01-02 14:31 | PN ---
BILLING 12/14/20 ADMISSION DAY LEVEL 5 - 12/15/20 EXTENSIVE FOLLOWUP 12/16/20 INTERMEDIATE 12/17/20 INTERMEDIATE 12/18/20 INTERMEDIATE 12/19/20 INTERMEDIATE 12/20/20 INTERMEDIATE 12/21/20 INTERMEDIATE 12/22/20 INTERMEDIATE 12/23/20 INTERMEDIATE 12/24/20 INTERMEDIATE 12/25/20 INTERMEDIATE 12/26/20 INTERMEDIATE 12/27/20 THE PATIENT MTDD
== END 2020-12-27 11:10 | disposition expired | DRG 177 ==
LOC: ED 11:06 → MEDSURG A 16:19 → MEDSURG B 12-25 02:08
PROVIDERS: ADMIT Internal Medicine; ATTEND Internal Medicine
DX: E87.2 Acidosis; J44.1 Chronic obstructive pulmonary disease with (acute) exacerbation; E78.5 Hyperlipidemia, unspecified; R06.02 Shortness of breath; I10 Essential (primary) hypertension; I50.9 Heart failure, unspecified; F03.91 Unspecified dementia, unspecified severity, with behavioral disturbance; E11.65 Type 2 diabetes mellitus with hyperglycemia; I48.91 Unspecified atrial fibrillation; R35.8 Other polyuria; Z20.822 Contact with and (suspected) exposure to COVID-19; R55 Syncope and collapse; J96.90 Respiratory failure, unspecified, unspecified whether with hypoxia or hypercapnia; E66.01 Morbid (severe) obesity due to excess calories; I42.0 Dilated cardiomyopathy; R63.1 Polydipsia; R63.2 Polyphagia; J20.9 Acute bronchitis, unspecified; N39.0 Urinary tract infection, site not specified; D64.9 Anemia, unspecified; N17.9 Acute kidney failure, unspecified; U07.1 COVID-19